=== PATIENT | female | born 1935 | race Caucasian/White ===

== ENCOUNTER → 2018-01-22 07:18 | Outpatient (CLI) | payer MEDICARE, SELFPAY | PROVIDERS: PCP Family Medicine; Visit Provider Surgery | DX: D12.6 Benign neoplasm of colon, unspecified (principal); K21.0 Gastro-esophageal reflux disease with esophagitis | CPT/HCPCS: 99213 ==

== ENCOUNTER 2018-02-12 08:01 | Outpatient (CLI) | payer MEDICARE, SELFPAY ==
--- NOTE | 2018-02-12 06:00 | DI.RAD_ITS ---
SYMPTOM/DIAGNOSIS: LUMBAR EPIDURAL STEROID INJECTION C-ARM FLUOROSCOPY: 02/12 Fluoroscopy Time: 19.9sec C-arm fluoroscopy was utilized by Dr. Hermosillo during reported lumbar epidural injection. Hard copy shows midline injection at what appears to be the L4-5 level consistent with an epidural injection.
[2018-02-12 08:32] VITALS: BP 137/80; PULSE 86; RESP 22; TEMP 36.6; O2SAT 93
[2018-02-12] MEDS: methylPREDNISolone ACETATE 40 MG/ML VIAL IJ (08:59)
[2018-02-12 09:00] VITALS: BP 132/73; PULSE 88; RESP 19; O2SAT 96
[2018-02-12] MEDS: Omnipaque 240 MG/ML 50 ML BTL IJ (09:00)
--- NOTE | 2018-03-04 15:07 | PDOC.PAIN_ITS ---
Lumbar radiculitis Chronic EPIDURAL STEROID WITH CATHETER INJECTION PROCEDURE NOTE COMMENTS: Back pain to left lower extremity to the ankle. L4-5 lateral recess stenosis.Patient states that her left lower extremity pain is improvedBut now she is having right sided pain. She does have some foraminal stenosis bilaterally at the L4-5 level VIRGINIE BROCK has been [facility] for lumbar epidural steroid injection. Patient was greeted by the nurse who verified patients name and . Patient was then taken to the fluoroscopy suite. Patient was interviewed and the medical record reviewed. There were no medical , pharmacologic, radiographic, or other structural contraindications to attempting fluoroscopically guided lumbar epidural steroid injection. Risks and expected side effects as well as potential benefits of the procedure were reviewed and voiced concerns addressed. The patient consent form was signed and witnessed. Standard time-out procedure was performed. Patient was placed in the prone position on the fluoroscopy table and automated blood pressure cuff and pulse oximeter applied. The skin entry point for entering/approaching the epidural space by a {L4-5} and marked. Following thorough chlorhexadine preparation of the skin and draping and 1% lidocaine infiltration of the skin entry point and subcutaneous tissues, a 18 gauge Touhy needle was placed under fluoroscopic guidance and with loss of resistance technique into the epidural space. Needle tip placement and depth were aided and confirmed by fluoroscopy. There was no paresthesia or return of blood or CSF through the needle.1 cc's of Omnipaque 240 was injected with clear epidural spread confirmed with fluoroscopy. 80mg depomedrol was injected. There was not any unusual discomfort expressed. Vital signs were stable throughout the procedure and were as recorded in nursing records. Follow up plans and appointments were discussed.Post procedure instruction was given as documented in nursing records and having met discharge criteria and was discharged from the [facility]. COMMENTS: Follow-up as needed. Would consider repeating if patient gets relief that is partial or not long lasting.I would consider doing bilateral transforaminal injections. The other options would be surgical evaluation and more complete evaluation in the pain clinic.
== END 2018-02-12 08:21 ==
PROVIDERS: PCP Family Medicine; Visit Provider Anesthesiology Pain Medicine
DX: M54.16 Radiculopathy, lumbar region (principal); M48.061 Spinal stenosis, lumbar region without neurogenic claudication
CPT/HCPCS: 62323; 72100; J1030; Q9967

== ENCOUNTER 2018-02-26 09:59 | Outpatient (CLI) | payer MEDICARE, SELFPAY ==
--- NOTE | 2018-02-26 09:41 | DI.RAD_ITS ---
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 L 2 - 3, L 3 - 4, L 4 - 5 and L 5 - S 1 disc narrowing is noted. A vacuum phenomenon is identified at these levels. Endplate sclerosis and hypertrophic spurring is most advanced at the L 3 - 4 level. The pedicle, spinous and transverse processes as visualized appear intact. Severe facet joint degenerative changes are evident most advanced at L 4 - 5 and L 5 - S 1. The sacrum and sacroiliac joints appear intact. Flexion and extension lateral images reveal reduced range of motion of the lumbar spine. 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 Please see the above discussion.
== END 2018-02-26 10:19 ==
PROVIDERS: PCP Family Medicine; Visit Provider Nurse Practitioner Family
DX: M43.16 Spondylolisthesis, lumbar region (principal); M51.37 Other intervertebral disc degeneration, lumbosacral region
CPT/HCPCS: 72110

== ENCOUNTER 2018-03-29 09:14 | Outpatient (CLI) | payer MEDICARE, SELFPAY ==
[2018-03-29 11:39] LABS: Hemoglobin A1C 6.5 % (4.5-6.2)
== END 2018-03-29 09:34 ==
PROVIDERS: PCP Family Medicine; Visit Provider Family Medicine
DX: E11.9 Type 2 diabetes mellitus without complications (principal)
CPT/HCPCS: 36415; 83036

== ENCOUNTER 2018-09-20 09:53 | Outpatient (CLI) | payer MEDICARE, SELFPAY ==
[2018-09-20 12:45] LABS: Hemoglobin A1C 6.3 % (4.5-6.2)
[2018-09-20 12:46] LABS: Anion Gap 9.8 mmol/L (3-11); BUN 18 mg/dL (7-18); CO2 28.2 mmol/L (21.0-32.0); CREATININE 0.67 mg/dL (0.55-1.02); Calcium 9.2 mg/dL (8.5-10.1); Chloride 102 mmol/L (98-107); Glucose 119 mg/dL (70-100); Potassium 3.7 mmol/L (3.5-5.1); Sodium 140 mmol/L (136-145)
== END 2018-09-20 10:13 ==
PROVIDERS: PCP Family Medicine; Visit Provider Family Medicine
DX: E11.9 Type 2 diabetes mellitus without complications (principal); I10 Essential (primary) hypertension
CPT/HCPCS: 36415; 80048; 83036

== ENCOUNTER 2018-09-24 00:16 | Outpatient (CLI) | payer MEDICARE, SELFPAY ==
--- NOTE | 2018-09-24 09:00 | DI.COMBO_ITS ---
SYMPTOM/DIAGNOSIS: LEFT BREAST PAIN, HX BIOPSY. SCREENING Z12.31 MAMMOGRAM, LEFT BREAST ULTRASOUND: Mammograms were interpreted according to the usual protocol including computer analysis with CAD system, tomosynthesis and C view imaging. The breast tissue is of moderate radiodensity. A spiculated area of nodularity is noted in the region of a previous biopsy in the lateral portion of the left breast. The nodular region today measures 8.2 x 7.2 and 8.4 mm. On the initial study of 03/28/17 this nodule measured 4 x 4.4 x 5.2 mm. Compression medial lateral and cranial caudad projections of the left breast were obtained today confirming the excrescence on the patient of 8.2 x k7.2 x 8.4 cm mass. SUMMARY: A nodular region in the left breast lies just posterior to a biopsy clip and could represent scarring. The possibility of a malignant lesion could not be entirely excluded and if there is any further clinical question then a repeat biopsy of this lesion is recommended. Category 4, breast density category B. MQSA ASSESSMENT OF FINDINGS: Suspicious. Biopsy should be considered. Category 4. Patient will receive a letter notifying them of these results. BI-RADS category B. There are scattered areas of fibroglandular density.
== END 2018-09-24 00:36 ==
PROVIDERS: PCP Family Medicine; Visit Provider Family Medicine
DX: Z12.31 Encounter for screening mammogram for malignant neoplasm of breast (principal); R92.8 Other abnormal and inconclusive findings on diagnostic imaging of breast; N64.4 Mastodynia; Z98.890 Other specified postprocedural states; N63.20 Unspecified lump in the left breast, unspecified quadrant
CPT/HCPCS: 76642; 77063; 77067

== ENCOUNTER 2018-12-03 01:09 | Outpatient (CLI) | payer MEDICARE, SELFPAY ==
--- NOTE | 2018-12-03 14:15 | DI.DEXA_ITS ---
SYMPTOMS/DIAGNOSIS: AROMATASE INHIBITOR USE, Z79.811, INVASIVE DUCTAL CARCINOMA OF BREAST DEXA SCAN: The LUIS image shows no evidence of compression fractures. The bone mineral density measurements of the lumbar spine correspond to a total T score of -0.1, in the normal range. There are degenerative disc changes at L 3 - 4 which may falsely elevate the bone mineral density measurements. The least dense vertebral body is L 1 with a T score of -0.7, in the normal range. The bone mineral density measurements of the left hip correspond to a total T score of -0.2 and a femoral neck T score of -0.1, in the kathy range. The bone mineral density measurements of the left forearm correspond to a total T score of -1.7 and a T score of the distal third of -1.5, in the osteopenic range. IMPRESSION: Osteopenia of the left forearm. Normal bone mineral density of the lumbar spine and left hip.
== END 2018-12-03 01:29 ==
PROVIDERS: PCP Family Medicine; Visit Provider Internal Medicine Medical Oncology
DX: Z79.811 Long term (current) use of aromatase inhibitors (principal); C50.912 Malignant neoplasm of unspecified site of left female breast; M85.88 Other specified disorders of bone density and structure, other site; M51.36 Other intervertebral disc degeneration, lumbar region
CPT/HCPCS: 77080

== ENCOUNTER 2018-12-05 01:06 | Outpatient (CLI) | payer MEDICARE, SELFPAY ==
--- NOTE | 2018-12-05 10:40 | MERGE_ITS ---
*[facility]* *[facility]* [address] [place] [address] Date of study: 12/05/2018 Transthoracic Echocardiography M-mode, complete 2D, complete spectral Doppler, and color Doppler *STUDY CONCLUSIONS* Impressions: Normal LV function. Summary: 1. Left ventricle: The cavity size was normal. Wall thickness was normal. Systolic function was hyperdynamic. The estimated ejection fraction was 65-70%. Wall motion was normal; there were no regional wall motion abnormalities. 2. Aortic valve: Mildly calcified annulus. Trileaflet; mildly thickened leaflets. Mild focal calcification involving the noncoronary cusp. There was mild regurgitation. 3. Mitral valve: There was mild regurgitation. 4. Right ventricle: The cavity size was normal. Wall thickness was normal. Systolic function was normal. 5. 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 6. Pulmonary arteries: Pulmonary systolic pressure was at the upper limits of normal. PA peak pressure: 37mm Hg (S). *PATIENT PRESENTATION* Height: 154.9cm (61in ) S/D Pressure: 127 / 72 Weight: 77.1kg (169.6lb ) BSA: 1.85m^2 Test start time: 10:45 AM. Test stop time: 12:30 PM. PERFORMING Unknown CONSULTING Julio Najera [facility] MOSAICIST RT Juanita (R)(CT), TOYIN ORDERING Jose Eduardo Nazario REFERRING Jose Eduardo Nazario *PROCEDURE DATA* Procedure information: This study was interpreted by [facility]. Pertinent images and digital data are archived for permanent storage and are available for subsequent review. No prior study was available for comparison. Study status: Routine. Transthoracic echocardiography. M-mode, complete 2D, complete spectral Doppler, and color Doppler. A Transthoracic Echocardiogram was performed. Scanning was performed from the parasternal, apical, subcostal, and suprasternal notch acoustic windows. Images were obtained using an [id number] cardiac ultrasound machine. Image quality was adequate. Study completion: The patient tolerated the procedure well. History: PMH: Adverse effect of drug therapy [id number]. 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 *CARDIAC ANATOMY* Left ventricle: The cavity size was normal. Wall thickness was normal. Systolic function was hyperdynamic. The estimated ejection fraction was 65-70%. Wall motion was normal; there were no regional wall motion abnormalities. Aortic valve: Mildly calcified annulus. Trileaflet; mildly thickened leaflets. Mild focal calcification involving the noncoronary cusp. Mobility was not restricted. Doppler: Transvalvular velocity was within the normal range. There was no stenosis. There was mild regurgitation. VTI ratio of LVOT to aortic valve: 0.79. Valve area (VTI): 2.5cm^2. Indexed valve area (VTI): 1.3cm^2/m^2. Peak velocity ratio of LVOT to aortic valve: 0.87. Valve area (Vmax): 2.7cm^2. Indexed valve area (Vmax): 1.5cm^2/m^2. Mean velocity ratio of LVOT to aortic valve: 0.65. Valve area (Vmean): 2cm^2. Indexed valve area (Vmean): 1.1cm^2/m^2. Mean gradient (S): 7.2mm Hg. Peak gradient (S): 12.7mm Hg. Aorta: Aortic root: The aortic root was normal in size. Ascending aorta: The ascending aorta was normal in size. Mitral valve: Structurally normal valve. Mobility was not restricted. Doppler: Transvalvular velocity was within the normal range. There was no evidence for stenosis. There was mild regurgitation. Left atrium: The atrium was normal in size. Atrial septum: The interatrial septum was hypermobile. 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 Right ventricle: The cavity size was normal. Wall thickness was normal. Systolic function was normal. Pulmonic valve: Doppler: Transvalvular velocity was within the normal range. There was no evidence for stenosis. There was no significant regurgitation. Tricuspid valve: Structurally normal valve. Doppler: Transvalvular velocity was within the normal range. There was no evidence for stenosis. There was mild regurgitation. Pulmonary artery: Pulmonary systolic pressure was at the upper limits of normal. Right atrium: The atrium was normal in size. Pericardium: A prominent pericardial fat pad was present. There was no pericardial effusion. Systemic veins: Inferior vena cava: Well visualized. The vessel was patent and normal in size. Baseline ECG: Normal sinus rhythm. Measurements Left ventricle Value Reference LV ID, ED, PLAX 4.5 cm 3.5 - 6.0 LV ID, ES, PLAX 2.3 cm 2.1 - 4.0 LV PW thickness, ED, PLAX 1.0 cm LV end-diastolic volume, 1-p A2C 46 ml LV ejection fraction, 1-p A2C 65 % LV end-diastolic volume, 1-p A4C 49 ml LV ejection fraction, 1-p A4C 73 % LV e', lateral 0.081 m/sec LV E/e', lateral 7 LV e', medial 0.042 m/sec LV E/e', medial 13 LV e', average 0.061 m/sec LV E/e', average 9 Ventricular septum Value Reference IVS thickness, ED, PLAX 0.9 cm LVOT Value Reference LVOT ID, A-P 2.0 cm LVOT area 3.1 cm^2 LVOT peak velocity, S 1.54 m/sec LVOT mean velocity, S 0.83 m/sec LVOT VTI, S 23.7 cm LVOT peak gradient, S 9.5 mm Hg LVOT mean gradient, S 3.5 mm Hg Stroke volume (SV), LVOT DP 74 ml Stroke index (SV/bsa), LVOT DP 40 ml/m^2 Aortic valve Value Reference Aortic valve peak velocity, S 1.8 m/sec Aortic valve mean velocity, S 1.3 m/sec Aortic valve VTI, S 30.0 cm Aortic mean gradient, S 7.2 mm Hg Aortic peak gradient, S 12.7 mm Hg VTI ratio, LVOT/AV 0.79 Aortic valve area, VTI 2.5 cm^2 Velocity ratio, peak, LVOT/AV 0.87 Aortic valve area, peak velocity 2.7 cm^2 Velocity ratio, mean, LVOT/AV 0.65 Aortic valve area, mean velocity 2 cm^2 Aortic valve area/bsa, mean velocity 1.1 cm^2/m^2 Aorta Value Reference Aortic root ID, ED 2.5 cm Ascending aorta ID, A-P, S 3.1 cm Left atrium Value Reference LA ID, A-P, ES 3.7 cm LA ID/bsa, A-P 2.0 cm/m^2 <=2.2 LA volume/bsa, ES, 1-p A4C 27 ml/m^2 LA volume, ES, 2-p 47 ml LA volume/bsa, ES, 2-p 25 ml/m^2 LA/aortic root ratio 1.47 Mitral valve Value Reference Mitral E-wave peak velocity 0.53 m/sec Mitral A-wave peak velocity 1.06 m/sec Mitral E/A ratio, peak 0.5 Pulmonary veins Value Reference Pulmonary vein peak velocity, S 0.65 m/sec Pulmonary vein peak velocity, D 0.3 m/sec Pulmonary vein velocity ratio, peak, 2.16 S/D Pulmonary vein A-wave reversal peak 1.02 m/sec velocity Pulmonary arteries Value Reference PA pressure, S, DP (H) 37 mm Hg <=30 Tricuspid valve Value Reference Tricuspid regurg peak velocity 2.6 m/sec Tricuspid peak RV-RA gradient 26.9 mm Hg Right atrium Value Reference RA area, ES, A4C 10.6 cm^2 8.3 - 19.5 Systemic veins Value Reference Estimated CVP 10 mm Hg Right ventricle Value Reference RV pressure, S, DP (H) 37 mm Hg <=30 Legend: (L) and (H) ivett values outside specified reference range. I have personally reviewed the images and have reviewed and edited the reported findings. Electronically signed by Jean Pierre Forbes 12/05/2018 17:46
== END 2018-12-05 01:26 ==
PROVIDERS: PCP Family Medicine; Visit Provider Student in an Organized Health Care Education/Training Program
DX: C50.912 Malignant neoplasm of unspecified site of left female breast (principal); T50.905A Adverse effect of unspecified drugs, medicaments and biological substances, initial encounter; I08.0 Rheumatic disorders of both mitral and aortic valves; I25.3 Aneurysm of heart
CPT/HCPCS: 93306

== ENCOUNTER 2018-12-06 01:23 | Outpatient (CLI) | payer MEDICARE, SELFPAY ==
--- NOTE | 2018-12-06 10:00 | DI.NM_ITS ---
SYMPTOMS/DIAGNOSIS: INVASIVE DUCTAL CARCINOMA OF LEFT BREAST, METASTATIC BREAST CA, C50.912 WHOLE BODY BONE SCAN: Whole body bone scan was performed with intravenous infusion of 26.0 mCi of technetium 99 labelled methylene diphosphonate. Additional SPECT imaging of the lumbar region was performed. There are areas of increased uptake associated with L2-3 and L3-4 vertebral endplates and the findings are consistent with endplate hypertrophy and sclerosis noted on today's CT. No additional areas of suspicious increased uptake are identified. Minimal nonspecific increased uptake may be present in a couple of left ribs posteriorly in a pattern suggesting remote fracture. There is bilateral appropriate renal uptake. Mildly increased uptake noted in left knee consistent with degenerative change. CONCLUSION: No evidence of bony metastatic disease.
[2018-12-06] MEDS: Omnipaque 350 MG/ML 100 ML BTL IJ (11:18)
[2018-12-06] MEDS: Omnipaque 350 MG/ML 50 ML BTL IJ (11:19)
[2018-12-06] MEDS: Breeza Beverage 473 ML BTL PO ×2 (11:20)
--- NOTE | 2018-12-06 11:20 | DI.CT_ITS ---
SYMPTOM/DIAGNOSIS: INVASIVE DUCTAL CARCINOMA OF BREAST LEFT C50.912 STAGING OF BREAST CANCER CHEST, ABDOMEN AND PELVIS CT: 12/06 CT examination of the chest, abdomen and pelvis was performed with a bolus infusion of 100 cc Omnipaque 350 and ingestion of dilute barium. The patient reportedly has a history of recently diagnosed breast carcinoma. There is an apparent fluid collection seen in the left breast which is partially visualized on the scanning field. Axillary vascular clips are noted in the left axilla as well. No axillary, supraclavicular or mediastinal adenopathy seen. There are marked pulmonary predominantly central lobular emphysematous changes. No pulmonary nodule or consolidation. No abnormality of the tracheobronchial tree. No evidence of pulmonary embolic disease or other major vascular abnormality of the chest. No pleural effusion or pleural based mass. No focal bony lesions seen involving the chest, abdomen or pelvis. There is an apparent central 13 mm hepatic cyst. Otherwise, liver and spleen are unremarkable in appearance. Pancreas appears normal. Adrenals and kidneys are unremarkable. No urinary tract calcification or obstruction. Abdominal aorta is of normal diameter and major abdominal branches of the aorta appear intact. There is mild prominence of para aortic lymph nodes the largest measuring up to about 13 mm in diameter on transaxial imaging. No bulky adenopathy identified in the abdomen or pelvis. Appendix appears normal. There is colonic diverticulosis without evidence of diverticulitis. Note is made of apparent wall thickening of the gastric antrum, duodenum and proximal jejunum raising the possibility of enteritis, please correlate clinically. CONCLUSION: No evidence of metastatic disease of the chest, abdomen or pelvis. Additional findings include pulmonary emphysema and nonspecific wall thickening of gastric antrum, duodenum and jejunum which may be associated with enteritis. Please correlate clinically.
== END 2018-12-06 01:43 ==
PROVIDERS: PCP Family Medicine; Visit Provider Internal Medicine Medical Oncology
DX: C50.912 Malignant neoplasm of unspecified site of left female breast (principal); Z12.89 Encounter for screening for malignant neoplasm of other sites; K31.89 Other diseases of stomach and duodenum; J43.9 Emphysema, unspecified; M17.12 Unilateral primary osteoarthritis, left knee
CPT/HCPCS: 74177; 78306; 71260; J3490; Q9967

== ENCOUNTER 2018-12-27 09:28 | Outpatient (CLI) | payer MEDICARE, SELFPAY ==
[2018-12-27 10:07] LABS: Absolute Basophil Count 0.06 k/cumm (0.0-0.2); Absolute Eosinophil Count 0.23 k/cumm (0.0-0.7); Absolute Lymphocyte Count 1.72 k/cumm (1.2-3.4); Basophils % 0.9; Eosinophils % 3.5; HCT 42.5 % (36.0-46.0); HGB 13.9 g/dL (12.0-15.5); Mean Corp. HGB Concentration 32.7 g/dL (32.0-36.0); Mean Corpuscular Volume 88.7 fL (80-95); Mean Platelet Volume 11.8 fL (8.0-11.0); Monocytes % 9.1; Neutrophils % 60.5; Platelet Count 217 x1000/uL (130-400); RBC 4.79 m/cumm (4.00-5.20); RBC Distribution Width 14.7 % (11.7-14.6); White Blood Cell Count 6.61 k/cumm (4.4-10.8)
[2018-12-27 10:25] LABS: ALT 80 U/L (12-78); AST 82 U/L (15-37); Albumin 3.3 g/dL (3.4-5.0); Alkaline Phosphatase 242 U/L (46-116); Anion Gap 11.7 mmol/L (3-11); BUN 16 mg/dL (7-18); CO2 25.3 mmol/L (21.0-32.0); CREATININE 0.71 mg/dL (0.55-1.02); Chloride 103 mmol/L (98-107); Glucose 105 mg/dL (70-100); Potassium 3.6 mmol/L (3.5-5.1); Sodium 140 mmol/L (136-145); Total Protein 7.6 g/dL (6.4-8.2)
[2018-12-31 23:45] LABS: 25-Hydroxy D Total 64 ng/mL; 25-Hydroxy D2 <4.0 ng/mL; 25-Hydroxy D3 64 ng/mL
== END 2018-12-27 09:48 ==
PROVIDERS: PCP Family Medicine; Visit Provider Internal Medicine Hematology & Oncology
DX: C50.911 Malignant neoplasm of unspecified site of right female breast (principal); Z17.0 Estrogen receptor positive status [ER+]; M85.832 Other specified disorders of bone density and structure, left forearm
CPT/HCPCS: 36415; 80053; 82306; 85025

== ENCOUNTER 2019-01-17 08:27 | Outpatient (CLI) | payer MEDICARE, SELFPAY ==
[2019-01-17 08:56] LABS: Absolute Basophil Count 0.03 k/cumm (0.0-0.2); Absolute Eosinophil Count 0.19 k/cumm (0.0-0.7); Absolute Lymphocyte Count 1.02 k/cumm (1.2-3.4); Absolute Monocyte Count 0.65 k/cumm (0.11-0.7); Absolute Neutrophil Count 3.37 k/cumm (1.2-6.7); Basophils % 0.6; Eosinophils % 3.6; HCT 40.3 % (36.0-46.0); HGB 13.3 g/dL (12.0-15.5); Lymphocytes % 19.4; Mean Corpuscular Hemoglobin 29.5 pg (27.0-33.0); Mean Corpuscular Volume 89.4 fL (80-95); Mean Platelet Volume 11.8 fL (8.0-11.0); Monocytes % 12.4; Platelet Count 161 x1000/uL (130-400); RBC 4.51 m/cumm (4.00-5.20); RBC Distribution Width 14.8 % (11.7-14.6); White Blood Cell Count 5.26 k/cumm (4.4-10.8)
[2019-01-17 09:11] LABS: ALT 76 U/L (12-78); AST 83 U/L (15-37); Alkaline Phosphatase 243 U/L (46-116); Anion Gap 8.6 mmol/L (3-11); BUN 16 mg/dL (7-18); Bilirubin, Total 0.6 mg/dL (0.2-1.0); CO2 26.4 mmol/L (21.0-32.0); CREATININE 0.74 mg/dL (0.55-1.02); Calcium 9.4 mg/dL (8.5-10.1); Chloride 104 mmol/L (98-107); Glucose 167 mg/dL (70-100); Potassium 3.7 mmol/L (3.5-5.1); Sodium 139 mmol/L (136-145); Total Protein 7.3 g/dL (6.4-8.2)
== END 2019-01-17 08:47 ==
PROVIDERS: PCP Family Medicine; Visit Provider Internal Medicine Hematology & Oncology
DX: C50.911 Malignant neoplasm of unspecified site of right female breast (principal); Z17.0 Estrogen receptor positive status [ER+]
CPT/HCPCS: 36415; 80053; 85025

== ENCOUNTER 2019-02-07 10:13 | Outpatient (CLI) | payer MEDICARE, SELFPAY ==
[2019-02-07 10:48] LABS: Abs Immature Grans 0.01 k/cumm (0.0-0.09); Absolute Basophil Count 0.05 k/cumm (0.0-0.2); Absolute Eosinophil Count 0.16 k/cumm (0.0-0.7); Absolute Neutrophil Count 3.49 k/cumm (1.2-6.7); Basophils % 0.9; Eosinophils % 2.8; HCT 39.9 % (36.0-46.0); HGB 13.2 g/dL (12.0-15.5); Immature Grans % 0.2; Lymphocytes % 26.3; Mean Corp. HGB Concentration 33.1 g/dL (32.0-36.0); Mean Corpuscular Hemoglobin 29.7 pg (27.0-33.0); Mean Corpuscular Volume 89.7 fL (80-95); Mean Platelet Volume 11.6 fL (8.0-11.0); Monocytes % 8.8; Platelet Count 182 x1000/uL (130-400); RBC 4.45 m/cumm (4.00-5.20); RBC Distribution Width 14.9 % (11.7-14.6); White Blood Cell Count 5.71 k/cumm (4.4-10.8)
[2019-02-07 11:03] LABS: ALT 77 U/L (14-59); AST 91 U/L (15-37); Albumin 3.1 g/dL (3.4-5.0); Alkaline Phosphatase 212 U/L (46-116); BUN 17 mg/dL (7-18); Bilirubin, Total 0.8 mg/dL (0.2-1.0); CREATININE 0.85 mg/dL (0.55-1.02); Calcium 9.2 mg/dL (8.5-10.1); Chloride 103 mmol/L (98-107); Glucose 208 mg/dL (70-100); Potassium 3.4 mmol/L (3.5-5.1); Sodium 140 mmol/L (136-145); Total Protein 7.3 g/dL (6.4-8.2)
== END 2019-02-07 10:33 ==
PROVIDERS: PCP Family Medicine; Visit Provider Internal Medicine Hematology & Oncology
DX: C50.911 Malignant neoplasm of unspecified site of right female breast (principal); Z17.0 Estrogen receptor positive status [ER+]
CPT/HCPCS: 36415; 80053; 85025

== ENCOUNTER 2019-02-28 10:34 | Outpatient (CLI) | payer MEDICARE, SELFPAY ==
[2019-02-28 10:51] LABS: Abs Immature Grans 0.01 k/cumm (0.0-0.09); Absolute Basophil Count 0.04 k/cumm (0.0-0.2); Absolute Eosinophil Count 0.19 k/cumm (0.0-0.7); Absolute Monocyte Count 0.66 k/cumm (0.11-0.7); Absolute Neutrophil Count 3.42 k/cumm (1.2-6.7); Basophils % 0.7; Eosinophils % 3.1; HCT 38.7 % (36.0-46.0); HGB 12.7 g/dL (12.0-15.5); Immature Grans % 0.2; Lymphocytes % 29.4; Mean Corp. HGB Concentration 32.8 g/dL (32.0-36.0); Mean Corpuscular Hemoglobin 29.4 pg (27.0-33.0); Mean Corpuscular Volume 89.6 fL (80-95); Monocytes % 10.8; Neutrophils % 55.8; Platelet Count 182 x1000/uL (130-400); RBC 4.32 m/cumm (4.00-5.20); RBC Distribution Width 14.9 % (11.7-14.6); White Blood Cell Count 6.12 k/cumm (4.4-10.8)
[2019-02-28 11:13] LABS: ALT 73 U/L (14-59); AST 85 U/L (15-37); Albumin 3.1 g/dL (3.4-5.0); Alkaline Phosphatase 223 U/L (46-116); Anion Gap 10.3 mmol/L (3-11); BUN 17 mg/dL (7-18); Bilirubin, Total 0.9 mg/dL (0.2-1.0); CO2 24.7 mmol/L (21.0-32.0); CREATININE 0.69 mg/dL (0.55-1.02); Chloride 106 mmol/L (98-107); Glucose 109 mg/dL (70-100); Potassium 3.9 mmol/L (3.5-5.1); Sodium 141 mmol/L (136-145); Total Protein 7.2 g/dL (6.4-8.2)
== END 2019-02-28 10:54 ==
PROVIDERS: PCP Family Medicine; Visit Provider Internal Medicine Hematology & Oncology
DX: C50.912 Malignant neoplasm of unspecified site of left female breast (principal)
CPT/HCPCS: 36415; 80053; 85025

== ENCOUNTER 2019-03-17 01:04 | Outpatient (CLI) | payer MEDICARE, SELFPAY ==
--- NOTE | 2019-03-17 14:20 | DI.US_ITS ---
APPROVED REPORT EXAM: Comprehensive 2D, Doppler, and color-flow Echocardiogram Patient Location: Out-Patient Chamber Magistrate: Cindy Kelly [facility] ([place]) Indications: adverse effect of drug therapy [id number], breast CA left c50.912 Left Ventricle The left ventricle is grossly normal size. The left ventricular systolic function is normal. The left ventricular ejection fraction is within the normal range. Mild concentric left ventricular hypertrop hy. There is normal LV segmental wall motion. Diastolic function is indeterminate LVEF is 60-65%. Right Ventricle The right ventricle is normal size. The right ventricular systolic function is normal. Atria The left atrium size is normal. The right atrium size is normal. The atrial septum is aneurysmal. Aortic Valve The Aortic valve is sclerotic. There is no aortic valvular stenosis. Mild aortic regurgitation. Mitral Valve There is mitral annular calcification. No evidence of mitral valve stenosis. Mild mitral regurgitatio n. Tricuspid Valve The tricuspid valve is normal in structure. Trace to mild tricuspid regurgitation. RVSP is within nor mal limits Pulmonic Valve The pulmonary valve is normal in structure. Great Vessels The aortic root is normal in size. The IVC is normal in size and collapses >50% with inspiration. Pericardium There is no pericardial effusion. 2D Dimensions IVSd 1.3 cm F: 0.6-1.0 LA Volume Index A4C 37.0 mL/m2 PWd 1.2 cm F: 0.6 - 1.0 LA Area A4C 20.0 cm2 LVDd 3.7 cm F: 3.9 - 5.3 LVDs 2.1 cm F: 2.2 - 3.5 Aortic Root 3.0 cm F: 2.7 - 3.3 RA Area A4C 12.0 cm2 LVOT 2.0 cm (M/F) 1.5-2.5 Ascending Aorta 3.4 cm F: 2.3 - 3.1 LVEF (Jerez's) 61.0 % F: 54 - 74 FS 43.4 % LV Diastology E/A Ratio 0.5 MED E' 0.1 (<0.07 m/s) LV E/e MED 7.0 (>14) LAT E' 0.1 (<0.1 m/s) LV E/e LAT 4.7 (>14) Aortic Valve LVOT Peak Rambo. 1.1 m/s LVOT Peak Gr. 5.2 mmHg LVOT Mean Gr. 2.3 mmHg LVOT VTI 0.2 m AO VTI 0.3 (0.18-0.25 m) RAY (VTI) 1.6 (2.5-4.5 cm2) RAY (VTI) Index 0.9 cm/m2 Mitral Valve MV A Velocity 0.9 (0.4-1.3 m/s) E/A Ratio 0.5 MV Decel. Time 263.0 (160-240 msec) MV PHT 76.2 msec MVA PHT 2.9 cm2 Tricuspid Valve TR P. Velocity 2.3 m/s TR P. Gradient 21.0 mmHg Conclusion Left Ventricle : The left ventricle is grossly normal size. Mild concentric left ventricular hypertro phy. Diastolic function is indeterminate The left ventricular systolic function is normal. The left v entricular ejection fraction is within the normal range. There is normal LV segmental wall motion. Right Ventricle : The right ventricle is normal size. The right ventricular systolic function is norm al. Atria : The left atrium is mildly enlarged. The right atrium size is normal. The atrial septum is ane urysmal. Aortic Valve : The Aortic valve is sclerotic. Mild aortic regurgitation. There is no aortic valvular stenosis. Mitral Valve : There is mitral annular calcification. Mild mitral regurgitation. Tricuspid Valve : The tricuspid valve is normal in structure. Trace to mild tricuspid regurgitation. RVSP is within normal limits Mitral Valve : No evidence of mitral valve stenosis. Pulmonic Valve : The pulmonary valve is normal in structure. Great Vessels : The aortic root is normal in size. The IVC is normal in size and collapses >50% with inspiration. Pericardium : There is no pericardial effusion. Compared to prior echo dated 12/05/2018, there is no significant change.
== END 2019-03-17 01:24 ==
PROVIDERS: PCP Family Medicine; Visit Provider Internal Medicine Hematology & Oncology
DX: T50.905A Adverse effect of unspecified drugs, medicaments and biological substances, initial encounter (principal); C50.912 Malignant neoplasm of unspecified site of left female breast; I34.0 Nonrheumatic mitral (valve) insufficiency; I35.1 Nonrheumatic aortic (valve) insufficiency; I10 Essential (primary) hypertension
CPT/HCPCS: 93306

== ENCOUNTER 2019-03-21 10:09 | Outpatient (CLI) | payer MEDICARE, SELFPAY ==
[2019-03-21 10:25] LABS: Abs Immature Grans 0.02 k/cumm (0.0-0.09); Absolute Basophil Count 0.08 k/cumm (0.0-0.2); Absolute Eosinophil Count 0.36 k/cumm (0.0-0.7); Absolute Monocyte Count 0.77 k/cumm (0.11-0.7); Eosinophils % 4.5; HCT 42.5 % (36.0-46.0); HGB 13.8 g/dL (12.0-15.5); Immature Grans % 0.2; Lymphocytes % 24.9; Mean Corp. HGB Concentration 32.5 g/dL (32.0-36.0); Mean Corpuscular Hemoglobin 28.9 pg (27.0-33.0); Mean Corpuscular Volume 89.1 fL (80-95); Mean Platelet Volume 10.8 fL (8.0-11.0); Monocytes % 9.6; Neutrophils % 59.8; Platelet Count 275 x1000/uL (130-400); RBC 4.77 m/cumm (4.00-5.20); RBC Distribution Width 14.9 % (11.7-14.6); White Blood Cell Count 8.03 k/cumm (4.4-10.8)
[2019-03-21 10:36] LABS: ALT 71 U/L (14-59); AST 86 U/L (15-37); Albumin 2.9 g/dL (3.4-5.0); Alkaline Phosphatase 264 U/L (46-116); BUN 16 mg/dL (7-18); Bilirubin, Total 0.8 mg/dL (0.2-1.0); CREATININE 0.88 mg/dL (0.55-1.02); Calcium 9.6 mg/dL (8.5-10.1); Chloride 101 mmol/L (98-107); Glucose 170 mg/dL (70-100); Potassium 3.6 mmol/L (3.5-5.1); Sodium 138 mmol/L (136-145); Total Protein 7.5 g/dL (6.4-8.2)
== END 2019-03-21 10:29 ==
PROVIDERS: PCP Family Medicine; Visit Provider Internal Medicine Hematology & Oncology
DX: C50.912 Malignant neoplasm of unspecified site of left female breast (principal)
CPT/HCPCS: 36415; 80053; 85025

== ENCOUNTER 2019-05-02 09:05 | Outpatient (CLI) | payer MEDICARE, SELFPAY ==
[2019-05-02 09:28] LABS: Abs Immature Grans 0.01 k/cumm (0.0-0.09); Absolute Basophil Count 0.07 k/cumm (0.0-0.2); Absolute Eosinophil Count 0.26 k/cumm (0.0-0.7); Absolute Lymphocyte Count 1.59 k/cumm (1.2-3.4); Absolute Monocyte Count 0.76 k/cumm (0.11-0.7); Absolute Neutrophil Count 4.13 k/cumm (1.2-6.7); Eosinophils % 3.8; HCT 39.3 % (36.0-46.0); HGB 12.9 g/dL (12.0-15.5); Immature Grans % 0.1; Lymphocytes % 23.3; Mean Corp. HGB Concentration 32.8 g/dL (32.0-36.0); Mean Corpuscular Hemoglobin 29.3 pg (27.0-33.0); Mean Corpuscular Volume 89.1 fL (80-95); Mean Platelet Volume 11.2 fL (8.0-11.0); Monocytes % 11.1; Neutrophils % 60.7; Platelet Count 214 x1000/uL (130-400); RBC 4.41 m/cumm (4.00-5.20); RBC Distribution Width 15.5 % (11.7-14.6); White Blood Cell Count 6.82 k/cumm (4.4-10.8)
[2019-05-02 09:54] LABS: ALT 73 U/L (14-59); AST 90 U/L (15-37); Albumin 3.1 g/dL (3.4-5.0); Alkaline Phosphatase 227 U/L (46-116); Anion Gap 8.6 mmol/L (3-11); BUN 13 mg/dL (7-18); CO2 27.4 mmol/L (21.0-32.0); CREATININE 0.67 mg/dL (0.55-1.02); Calcium 9.3 mg/dL (8.5-10.1); Chloride 104 mmol/L (98-107); Glucose 105 mg/dL (74-106); Potassium 3.4 mmol/L (3.5-5.1); Sodium 140 mmol/L (136-145); Total Protein 7.4 g/dL (6.4-8.2)
== END 2019-05-02 09:25 ==
PROVIDERS: PCP Family Medicine; Visit Provider Internal Medicine Hematology & Oncology
DX: C50.912 Malignant neoplasm of unspecified site of left female breast (principal)
CPT/HCPCS: 36415; 80053; 85025

== ENCOUNTER 2019-06-13 08:47 | Outpatient (CLI) | payer MEDICARE, SELFPAY ==
[2019-06-13 09:20] LABS: Abs Immature Grans 0.01 k/cumm (0.0-0.09); Absolute Basophil Count 0.05 k/cumm (0.0-0.2); Absolute Eosinophil Count 0.35 k/cumm (0.0-0.7); Absolute Lymphocyte Count 1.59 k/cumm (1.2-3.4); Absolute Monocyte Count 0.79 k/cumm (0.11-0.7); Absolute Neutrophil Count 4.26 k/cumm (1.2-6.7); Basophils % 0.7; HCT 38.5 % (36.0-46.0); HGB 12.8 g/dL (12.0-15.5); Immature Grans % 0.1 %; Lymphocytes % 22.6; Mean Corp. HGB Concentration 33.2 g/dL (32.0-36.0); Mean Corpuscular Hemoglobin 29.6 pg (27.0-33.0); Mean Corpuscular Volume 88.9 fL (80-95); Mean Platelet Volume 11.2 fL (8.0-11.0); Monocytes % 11.2; Neutrophils % 60.4; Platelet Count 226 x1000/uL (130-400); RBC 4.33 m/cumm (4.00-5.20); RBC Distribution Width 15.3 % (11.7-14.6); White Blood Cell Count 7.05 k/cumm (4.4-10.8)
[2019-06-13 09:51] LABS: ALT 87 U/L (14-59); AST 109 U/L (15-37); Alkaline Phosphatase 231 U/L (46-116); Anion Gap 9.7 mmol/L (3-11); BUN 18 mg/dL (7-18); Bilirubin, Total 0.8 mg/dL (0.2-1.0); CO2 28.3 mmol/L (21.0-32.0); CREATININE 0.69 mg/dL (0.55-1.02); Calcium 9.1 mg/dL (8.5-10.1); Chloride 103 mmol/L (98-107); Glucose 142 mg/dL (74-106); Potassium 3.4 mmol/L (3.5-5.1); Sodium 141 mmol/L (136-145); Total Protein 6.9 g/dL (6.4-8.2)
== END 2019-06-13 09:07 ==
PROVIDERS: PCP Family Medicine; Visit Provider Internal Medicine Hematology & Oncology
DX: C50.911 Malignant neoplasm of unspecified site of right female breast (principal); Z17.0 Estrogen receptor positive status [ER+]
CPT/HCPCS: 36415; 80053; 85025

== ENCOUNTER 2019-06-19 02:24 | Outpatient (CLI) | payer MEDICARE, SELFPAY ==
--- NOTE | 2019-06-19 10:25 | DI.US_ITS ---
APPROVED REPORT EXAM: Comprehensive 2D, Doppler, and color-flow Echocardiogram Patient Location: Out-Patient Armature Bander: Cindy Kelly [facility] ([facility]) Rhythm: NSR Indications: MONITORING OF CARDIAC FUNCTION, ON HERCEPTIN, HEART MURMUR, R01.1, LT BREAST CA Conclusion Left Ventricle : The left ventricle is normal size. There is normal left ventricular wall thickness. The posterior wall thickness is mildly increased. The septum is normal. Left ventricular systolic fu nction is normal. There is normal LV segmental wall motion. Function is indeterminate but there is ev idence of impaired relaxation. LVEF is estimated to be 60-65%. Right Ventricle : The right ventricle is normal size. Right ventricular systolic function is mildly r educed. Atria : The left atrium size is top normal. The right atrium size is normal. Aortic Valve : Aortic valve is trileaflet. The Aortic valve is sclerotic. There is no hemodynamically significant aortic valvular stenosis. Mild aortic regurgitation. Mitral Valve : There is mitral annular calcification. Mitral valve leaflets are mildly thickened. Tra ce mitral regurgitation. No evidence of mitral valve stenosis. Tricuspid Valve : The tricuspid valve is normal in structure. Trace tricuspid regurgitation. Great Vessels : IVC appears smaller in size and collapses >50% with inspiration. Estimated RVSP is 2 2-25 mmHg. Compared to echocardiogram dated 03/17/2019: There is no significant change. Wall motion Left Ventricle The left ventricle is normal size. Left ventricular systolic function is normal. Global longitudinal strain was not done on this study. There is normal left ventricular wall thickness. The posterior wal l thickness is mildly increased. The septum is normal. There is normal LV segmental wall motion. Func tion is indeterminate but there is evidence of impaired relaxation. LVEF is estimated to be 60-65%. Right Ventricle The right ventricle is normal size. Right ventricular systolic function is mildly reduced. Atria The left atrium size is top normal. The right atrium size is normal. Aortic Valve Aortic valve is trileaflet. The Aortic valve is sclerotic. There is no hemodynamically significant ao rtic valvular stenosis. Mild aortic regurgitation. Mitral Valve There is mitral annular calcification. Mitral valve leaflets are mildly thickened. No evidence of sylvia ral valve stenosis. Trace mitral regurgitation. Tricuspid Valve The tricuspid valve is normal in structure. Trace tricuspid regurgitation. Pulmonic Valve Pulmonic valve is not well visualized. Great Vessels The aortic root is normal in size. The ascending aorta size is dilated (3.32). IVC appears smaller in size and collapses >50% with inspiration. Estimated RVSP is 22-25 mmHg. Pericardium There is no pericardial effusion. 2D Dimensions IVSd 1.00 cm F: 0.6-1.0 LV EDV A2C 83.10 mL PWd 1.00 cm F: 0.6 - 1.0 LV EDV A4C 61.30 mL LVDd 4.40 cm F: 3.8 - 5.2 LA Volume Index A2C 30.73 mL/m2 LVDs 2.95 cm F: 2.2 - 3.5 LA Volume Index A4C 37.46 mL/m2 Aortic Root 2.85 cm F: 2.7 - 3.3 LA Volume Index Biplane 34.47 mL/m2 RA Area A4C 15.34 cm2 LA Area A4C 19.69 cm2 LVOT 1.90 cm (M/F) 1.5-2.5 LA Area A2C 17.55 cm2 Ascending Aorta 3.32 cm F: 2.3 - 3.1 EF AP4 61.50 % LVEF (Teich) 61.80 % EF AP2 66.19 % LVEF (Jerez's) 63.72 % F: 54 - 74 EF BP 63.72 % LV Volume 55.74 mL F: 46 - 106 LV Volume Index 31.85 mL/m2 F: 29 - 61 FS 33.05 % LV Diastology E/A Ratio 0.5 MED E' 0.04 (>0.07 m/s) LV E/e MED 14.40 (<14) LAT E' 0.06 (>0.1 m/s) LV E/e LAT 8.45 (<14) Aortic Valve LVOT Area 2.95 cm2 LVOT Vmax 1.41 m/s LVOT Mean Rambo. 1.01 m/s LVOT Peak Gr. 8.0 mmHg LVOT Mean Gr. 4.5 mmHg AoV Area/ BSA (Vmax) 1.06 cm2/m2 LVOT VTI 0.233 m AoV Vmax 2.25 (0.5-1.3 m/s) RAY Mean Rambo. Index 1.13 cm2/m2 AoV Mean Rambo. 1.50 m/s AoV Peak Grad 20.2 mmHg AI PHT 320.47 msec AoV Mean Grad 9.8 (<5 mmHg) AoV VTI 0.385 (0.18-0.25 m) AV Regurg Decel. 1105.08 msec AoV Area VTI 1.98 (2.5-4.5 cm2) AoV Area/ BSA (VTI) 1.13 cm/m2 Mitral Valve MV E Max Rambo. 0.54 (0.4-1.3 m/s) MV A Velocity 1.05 (0.4-1.3 m/s) E/A Ratio 0.50 MV Decel. Time 208.10 (160-240 msec) MV PHT 60.35 msec MVA PHT 3.60 cm2 Pulmonary Valve PV Peak Velocity 1.09 (0.5-1.5 m/s) RVOT Peak Gr. 2.22 mmHg RVOT Peak Rambo. 0.75 m/s RVOT Mean Gr. 1.00 mmHg RVOT VTI 0.10 m Tricuspid Valve TR P. Velocity 2.40 m/s TV Regurg Vmax 2.40 m/s TR P. Gradient 22.95 mmHg
== END 2019-06-19 02:44 ==
PROVIDERS: PCP Family Medicine; Visit Provider Internal Medicine Hematology & Oncology
DX: R01.1 Cardiac murmur, unspecified (principal); C50.912 Malignant neoplasm of unspecified site of left female breast; Z79.899 Other long term (current) drug therapy; I35.8 Other nonrheumatic aortic valve disorders; I50.1 Left ventricular failure, unspecified
CPT/HCPCS: 93306

== ENCOUNTER 2019-07-04 09:13 | Outpatient (CLI) | payer MEDICARE, SELFPAY ==
[2019-07-04 09:36] LABS: Absolute Basophil Count 0.05 k/cumm (0.0-0.2); Absolute Lymphocyte Count 1.63 k/cumm (1.2-3.4); Absolute Monocyte Count 0.67 k/cumm (0.11-0.7); Absolute Neutrophil Count 4.23 k/cumm (1.2-6.7); Basophils % 0.7; Eosinophils % 2.9; HCT 37.4 % (36.0-46.0); HGB 12.2 g/dL (12.0-15.5); Mean Corp. HGB Concentration 32.6 g/dL (32.0-36.0); Mean Corpuscular Hemoglobin 29.4 pg (27.0-33.0); Mean Corpuscular Volume 90.1 fL (80-95); Mean Platelet Volume 11.7 fL (8.0-11.0); Monocytes % 9.9; Neutrophils % 62.5; Platelet Count 211 x1000/uL (130-400); RBC 4.15 m/cumm (4.00-5.20); RBC Distribution Width 14.6 % (11.7-14.6); White Blood Cell Count 6.78 k/cumm (4.4-10.8)
[2019-07-04 09:55] LABS: ALT 64 U/L (14-59); AST 75 U/L (15-37); Alkaline Phosphatase 156 U/L (46-116); Anion Gap 11.1 mmol/L (3-11); BUN 13 mg/dL (7-18); Bilirubin, Total 0.7 mg/dL (0.2-1.0); CO2 24.9 mmol/L (21.0-32.0); CREATININE 0.58 mg/dL (0.55-1.02); Calcium 9.3 mg/dL (8.5-10.1); Chloride 104 mmol/L (98-107); Glucose 105 mg/dL (74-106); Potassium 3.6 mmol/L (3.5-5.1); Sodium 140 mmol/L (136-145)
== END 2019-07-04 09:33 ==
PROVIDERS: PCP Family Medicine; Visit Provider Internal Medicine Hematology & Oncology
DX: C50.912 Malignant neoplasm of unspecified site of left female breast (principal)
CPT/HCPCS: 36415; 80053; 85025

== ENCOUNTER 2019-07-25 10:15 | Outpatient (CLI) | payer MEDICARE, SELFPAY ==
[2019-07-25 10:57] LABS: Absolute Basophil Count 0.04 k/cumm (0.0-0.2); Absolute Eosinophil Count 0.22 k/cumm (0.0-0.7); Absolute Lymphocyte Count 1.59 k/cumm (1.2-3.4); Absolute Monocyte Count 0.67 k/cumm (0.11-0.7); Absolute Neutrophil Count 3.78 k/cumm (1.2-6.7); Basophils % 0.6; Eosinophils % 3.5; HCT 37.4 % (36.0-46.0); Lymphocytes % 25.2; Mean Corp. HGB Concentration 32.1 g/dL (32.0-36.0); Mean Corpuscular Hemoglobin 28.8 pg (27.0-33.0); Mean Corpuscular Volume 89.9 fL (80-95); Mean Platelet Volume 11.4 fL (8.0-11.0); Monocytes % 10.6; Neutrophils % 60.1; Platelet Count 203 x1000/uL (130-400); RBC 4.16 m/cumm (4.00-5.20); RBC Distribution Width 14.4 % (11.7-14.6)
[2019-07-25 11:12] LABS: ALT 65 U/L (14-59); AST 77 U/L (15-37); Albumin 2.9 g/dL (3.4-5.0); Alkaline Phosphatase 165 U/L (46-116); BUN 14 mg/dL (7-18); Bilirubin, Total 0.5 mg/dL (0.2-1.0); CREATININE 0.73 mg/dL (0.55-1.02); Calcium 8.8 mg/dL (8.5-10.1); Chloride 104 mmol/L (98-107); Glucose 158 mg/dL (74-106); Potassium 3.2 mmol/L (3.5-5.1); Sodium 139 mmol/L (136-145)
== END 2019-07-25 10:35 ==
PROVIDERS: PCP Family Medicine; Visit Provider Internal Medicine Hematology & Oncology
DX: C50.912 Malignant neoplasm of unspecified site of left female breast (principal)
CPT/HCPCS: 36415; 80053; 85025

== ENCOUNTER 2019-08-15 09:59 | Outpatient (CLI) | payer MEDICARE, SELFPAY ==
[2019-08-15 10:36] LABS: Abs Immature Grans 0.01 k/cumm (0.0-0.09); Absolute Basophil Count 0.03 k/cumm (0.0-0.2); Absolute Lymphocyte Count 1.86 k/cumm (1.2-3.4); Absolute Monocyte Count 0.57 k/cumm (0.11-0.7); Absolute Neutrophil Count 4.16 k/cumm (1.2-6.7); Basophils % 0.4; Eosinophils % 4.3; HCT 37.2 % (36.0-46.0); HGB 12.1 g/dL (12.0-15.5); Immature Grans % 0.1 %; Lymphocytes % 26.8; Mean Corp. HGB Concentration 32.5 g/dL (32.0-36.0); Mean Corpuscular Volume 89.2 fL (80-95); Monocytes % 8.2; Neutrophils % 60.2; Platelet Count 191 x1000/uL (130-400); RBC 4.17 m/cumm (4.00-5.20); RBC Distribution Width 14.4 % (11.7-14.6); White Blood Cell Count 6.93 k/cumm (4.4-10.8)
[2019-08-15 10:50] LABS: ALT 69 U/L (14-59); AST 82 U/L (15-37); Albumin 3.1 g/dL (3.4-5.0); Alkaline Phosphatase 162 U/L (46-116); Anion Gap 11.6 mmol/L (3-11); BUN 13 mg/dL (7-18); Bilirubin, Total 0.6 mg/dL (0.2-1.0); CO2 22.4 mmol/L (21.0-32.0); CREATININE 0.65 mg/dL (0.55-1.02); Chloride 105 mmol/L (98-107); Glucose 95 mg/dL (74-106); Potassium 3.6 mmol/L (3.5-5.1); Sodium 139 mmol/L (136-145); Total Protein 7.1 g/dL (6.4-8.2)
== END 2019-08-15 10:19 ==
PROVIDERS: PCP Family Medicine; Visit Provider Internal Medicine Hematology & Oncology
DX: C50.912 Malignant neoplasm of unspecified site of left female breast (principal)
CPT/HCPCS: 36415; 80053; 85025

== ENCOUNTER 2019-09-05 02:14 | Outpatient (CLI) | payer MEDICARE, SELFPAY ==
[2019-09-05 10:38] LABS: Abs Immature Grans 0.01 k/cumm (0.0-0.09); Absolute Basophil Count 0.05 k/cumm (0.0-0.2); Absolute Eosinophil Count 0.28 k/cumm (0.0-0.7); Absolute Lymphocyte Count 1.81 k/cumm (1.2-3.4); Absolute Monocyte Count 0.69 k/cumm (0.11-0.7); Absolute Neutrophil Count 3.48 k/cumm (1.2-6.7); Basophils % 0.8; Eosinophils % 4.4; HCT 37.1 % (36.0-46.0); HGB 12.1 g/dL (12.0-15.5); Immature Grans % 0.2 %; Lymphocytes % 28.6; Mean Corp. HGB Concentration 32.6 g/dL (32.0-36.0); Mean Corpuscular Hemoglobin 29.1 pg (27.0-33.0); Mean Corpuscular Volume 89.2 fL (80-95); Mean Platelet Volume 11.2 fL (8.0-11.0); Monocytes % 10.9; Neutrophils % 55.1; Platelet Count 232 x1000/uL (130-400); RBC 4.16 m/cumm (4.00-5.20); RBC Distribution Width 14.9 % (11.7-14.6); White Blood Cell Count 6.32 k/cumm (4.4-10.8)
[2019-09-05 11:02] LABS: ALT 89 U/L (14-59); AST 85 U/L (15-37); Albumin 2.9 g/dL (3.4-5.0); Alkaline Phosphatase 189 U/L (46-116); Anion Gap 10.2 mmol/L (3-11); BUN 15 mg/dL (7-18); Bilirubin, Total 0.6 mg/dL (0.2-1.0); CO2 25.8 mmol/L (21.0-32.0); CREATININE 0.68 mg/dL (0.55-1.02); Calcium 9.1 mg/dL (8.5-10.1); Chloride 103 mmol/L (98-107); Glucose 91 mg/dL (74-106); Potassium 3.4 mmol/L (3.5-5.1); Sodium 139 mmol/L (136-145); Total Protein 7.2 g/dL (6.4-8.2)
== END 2019-09-05 02:34 ==
PROVIDERS: PCP Family Medicine; Visit Provider Internal Medicine Hematology & Oncology
DX: C50.912 Malignant neoplasm of unspecified site of left female breast (principal)
CPT/HCPCS: 36415; 80053; 85025

== ENCOUNTER 2019-09-26 01:36 | Outpatient (CLI) | payer MEDICARE, SELFPAY ==
[2019-09-26 10:56] LABS: Abs Immature Grans 0.01 k/cumm (0.0-0.09); Absolute Basophil Count 0.06 k/cumm (0.0-0.2); Absolute Eosinophil Count 0.32 k/cumm (0.0-0.7); Absolute Lymphocyte Count 1.98 k/cumm (1.2-3.4); Absolute Monocyte Count 0.59 k/cumm (0.11-0.7); Absolute Neutrophil Count 4.02 k/cumm (1.2-6.7); Basophils % 0.9; Eosinophils % 4.6; HCT 37.8 % (36.0-46.0); HGB 12.2 g/dL (12.0-15.5); Immature Grans % 0.1 %; Lymphocytes % 28.4; Mean Corp. HGB Concentration 32.3 g/dL (32.0-36.0); Mean Corpuscular Hemoglobin 28.8 pg (27.0-33.0); Mean Corpuscular Volume 89.2 fL (80-95); Mean Platelet Volume 11.7 fL (8.0-11.0); Monocytes % 8.5; Neutrophils % 57.5; Platelet Count 220 x1000/uL (130-400); RBC 4.24 m/cumm (4.00-5.20); RBC Distribution Width 15.4 % (11.7-14.6); White Blood Cell Count 6.98 k/cumm (4.4-10.8)
[2019-09-26 11:03] LABS: ALT 111 U/L (14-59); AST 102 U/L (15-37); Albumin 3.2 g/dL (3.4-5.0); Alkaline Phosphatase 206 U/L (46-116); Anion Gap 7.5 mmol/L (3-11); BUN 18 mg/dL (7-18); Bilirubin, Total 0.7 mg/dL (0.2-1.0); CO2 26.5 mmol/L (21.0-32.0); CREATININE 0.76 mg/dL (0.55-1.02); Calcium 9.2 mg/dL (8.5-10.1); Chloride 105 mmol/L (98-107); Glucose 111 mg/dL (74-106); Potassium 3.9 mmol/L (3.5-5.1); Sodium 139 mmol/L (136-145); Total Protein 7.5 g/dL (6.4-8.2)
[2019-09-26 11:05] LABS: Calculated LDL 122 mg/dL (<100); Cholesterol 204 mg/dL (<200); HDL Cholesterol 69 mg/dL (40-60); Triglyceride 66 mg/dL (<150)
[2019-09-26 11:06] LABS: Hemoglobin A1C 5.8 % (3.8-5.6)
== END 2019-09-26 01:56 ==
PROVIDERS: Family Medicine; PCP Family Medicine; Visit Provider Internal Medicine Hematology & Oncology
DX: C50.912 Malignant neoplasm of unspecified site of left female breast (principal); E11.9 Type 2 diabetes mellitus without complications
CPT/HCPCS: 36415; 80053; 80061; 83036; 85025

== ENCOUNTER 2019-10-09 00:51 | Outpatient (CLI) | payer MEDICARE, SELFPAY ==
--- NOTE | 2019-10-09 10:26 | DI.US_ITS ---
APPROVED REPORT EXAM: Comprehensive 2D, Doppler, and color-flow Echocardiogram Patient Location: Out-Patient Chassis Mechanic: Jeanie Hensley RDCS ([place]) Indications: Breast Cancer, Adverse effect of antineoplastic and immunosuppressive drugs Other Information Study Quality: Good Conclusion Left Ventricle : The left ventricle is normal size. The left ventricular systolic function is normal. The left ventricular ejection fraction is within the normal range. There is normal left ventricular wall thickness. There is normal LV segmental wall motion. Transmitral Doppler flow pattern suggests i mpaired LV relaxation. LVEF is 50-55%. Average global longitudinal strain is -16.63% Right Ventricle : The right ventricle is normal size. The right ventricular systolic function is norm al. Atria : The left atrium size is normal. The right atrium size is normal. Aortic Valve : The Aortic valve is sclerotic. Aortic valve is trileaflet. Mild aortic regurgitation. There is no aortic valvular stenosis. Great Vessels : IVC is normal in size and collapses >50% with inspiration. Please see the rest of report for additional details. Compared to echocardiogram from 06/30/2019, ejection fraction has decreased minimally from 60-65% to 5 0-55%. Wall motion Left Ventricle The left ventricle is normal size. The left ventricular systolic function is normal. The left ventric ular ejection fraction is within the normal range. There is normal left ventricular wall thickness. T here is normal LV segmental wall motion. Transmitral Doppler flow pattern suggests impaired LV relaxa tion. There is no ventricular septal defect visualized. LVEF is 50-55%. Average global longitudinal s train is -16.63% Right Ventricle The right ventricle is normal size. The right ventricular systolic function is normal. Atria The left atrium size is normal. The right atrium size is normal. Interatrial septum is intact without evidence of ASD or PFO. The atrial septum is aneurysmal. Aortic Valve The Aortic valve is sclerotic. Aortic valve is trileaflet. There is no aortic valvular stenosis. Mild aortic regurgitation. Mitral Valve There is mitral annular calcification. No evidence of mitral valve stenosis. Trace mitral regurgitati on. Tricuspid Valve The tricuspid valve is normal in structure. There is no tricuspid valve stenosis. Trace tricuspid reg urgitation. Pulmonic Valve The pulmonary valve is normal in structure. There is no pulmonic valvular stenosis. There is no pulmo alyse valvular regurgitation. Great Vessels The aortic root is normal in size. The ascending aorta is normal in size. IVC is normal in size and c ollapses >50% with inspiration. Pericardium There is no pericardial effusion. There is no pleural effusion. 2D Dimensions IVSD d PLAX 0.84 cm F: 0.6-1.0 LV Vol A2C d MOD 91.9 mL LVPW d PLAX 0.85 cm F: 0.6 - 1.0 LV Vol A4C d MOD 77.8 mL LVID d PLAX 4.00 cm F: 3.8 - 5.2 LA vol/ BSA A2C s A-L 37.4 mL/m2 LVDs 2.60 cm F: 2.2 - 3.5 LA vol/ BSA A4C s A-L 30.1 mL/m2 Ao Root d 2.92 cm F: 2.7 - 3.3 LA Vol/ BSA Biplane s A-L 36.5 mL/m2 RA Area A4C 12.56 cm2 LA Area A4C s MOD 19.07 cm2 RA Vol/ BSA A4C s A-L 17.8 mL/m2 LA Area A2C s MOD 19.54 cm2 Ao Asc Diam d 3.57 cm F: 2.3 - 3.1 LV EF A4C MOD 53.5 % LV EF Teichholz 63.5 % LV EF A2C MOD 47.9 % LVEF (Jerez's) 49.60 % F: 54 - 74 LV EF Biplane MOD 49.6 % LV Volume 66.78 mL F: 46 - 106 LV Volume Index 38.60 mL/m2 F: 29 - 61 LV Vol Biplane MOD 84.7 mL FS 34.00 % M-Mode TAPSE 2.34 cm (M/F) >1.7 LV Diastology MV E' medial 0.039 (>0.07 m/s) E/A Ratio 0.6 LV E/e MED 16.40 (<14) MV E Vmax 0.64 (0.4-1.3 m/s) MV E' lateral 0.085 (>0.1 m/s) MV A Vmax 1.00 (0.4-1.3 m/s) LV E/e LAT 7.55 (<14) MV E/A Ratio 0.62 MV E/E' medial 16.43 MV E/E' lateral 7.55 Aortic Valve LVOT Area 3.52 cm2 AoV Area Vmax 3.02 cm2 LVOT Vmax 1.42 m/s AoV Area/ BSA (Vmax) 1.74 cm2/m2 LVOT Mean Rambo. 0.82 m/s RAY Mean Rambo. 2.56 cm2 LVOT Peak Grad 8.1 mmHg RAY Mean Rambo. Index 1.48 cm2/m2 LVOT Mean Grad 3.4 mmHg AR DT 2033 msec LVOT VTI 0.277 m AR PHT 590 msec LVOT Diam s 2.10 cm (M/F) 1.5-2.5 AoV Vmax 1.65 (0.5-1.3 m/s) Velocity Ratio 0.86 AoV Mean Rambo. 1.13 m/s AoV Peak Grad 10.9 mmHg LVOT SV 97.48 mL AoV Mean Grad 5.8 (<5 mmHg) AoV VTI 0.333 (0.18-0.25 m) AoV Area VTI 2.93 (2.5-4.5 cm2) AoV Area/ BSA (VTI) 1.69 cm/m2 Mitral Valve MV DT 244 (160-240 msec) MV PHT 71 msec MV Area PHT 3.10 cm2 Pulmonary Valve PV Vmax 1.15 (0.5-1.5 m/s) RVOT Peak Gr. 1.91 mmHg PV Peak Grad 5.3 mmHg RVOT Mean Gr. 1.00 mmHg PV Mean Grad 2.9 mmHg RVOT VTI 0.139 m PV VTI 0.224 m RVOT Vmax 0.69 m/s Tricuspid Valve TR Peak Grad 23.9 mmHg TR Vmax 2.44 m/s RA Pressure 3.00 mmHg RVSP (TR) 26.9 mmHg
== END 2019-10-09 01:11 ==
PROVIDERS: PCP Family Medicine; Visit Provider Nurse Practitioner Adult Health
DX: R01.1 Cardiac murmur, unspecified (principal); C50.912 Malignant neoplasm of unspecified site of left female breast; T45.1X5A Adverse effect of antineoplastic and immunosuppressive drugs, initial encounter; I35.8 Other nonrheumatic aortic valve disorders; I10 Essential (primary) hypertension
CPT/HCPCS: 93306

== ENCOUNTER 2019-11-06 02:24 | Outpatient (CLI) | payer MEDICARE, SELFPAY ==
--- NOTE | 2019-11-06 10:26 | DI.US_ITS ---
APPROVED REPORT EXAM: Comprehensive 2D, Doppler, and color-flow Echocardiogram Patient Location: Out-Patient Biodiesel Engine Specialist: Jeanie Hensley RDCS ([place]) Indications: Breast CA, High risk medication, Decreased Ejection fraction Limited exam to follow up on ejection fraction was done. Other Information Study Quality: Good Conclusion This is a limited echocardiogram to evaluate LV function. Left Ventricle : The left ventricle is normal size. The left ventricular systolic function is normal. The left ventricular ejection fraction is within the normal range. There is normal left ventricular wall thickness. There is normal LV segmental wall motion. LVEF is 57%. Average global longitudinal s train is -18%. Right Ventricle : Right ventricular systolic function is grossly normal. Compared to echocardiogram from 10/09/2019: There is no significant change. Wall motion Left Ventricle The left ventricle is normal size. The left ventricular systolic function is normal. The left ventric ular ejection fraction is within the normal range. There is normal left ventricular wall thickness. T here is normal LV segmental wall motion. LVEF is 57%. Average global longitudinal strain is -18%. Right Ventricle Right ventricular systolic function is grossly normal. 2D Dimensions IVSD d PLAX 0.84 cm F: 0.6-1.0 LV Vol A2C d MOD 87.9 mL LVPW d PLAX 0.87 cm F: 0.6 - 1.0 LV Vol A4C d MOD 76.1 mL LVID d PLAX 4.05 cm F: 3.8 - 5.2 LA vol/ BSA A2C s A-L 33.4 mL/m2 LVDs 2.65 cm F: 2.2 - 3.5 LA vol/ BSA A4C s A-L 28.4 mL/m2 LV EF Teichholz 63.5 % LA Vol/ BSA Biplane s A-L 31.2 mL/m2 LVEF (Jerez's) 56.92 % F: 54 - 74 LA Area A4C s MOD 17.30 cm2 LV Volume 65.37 mL F: 46 - 106 LA Area A2C s MOD 18.54 cm2 LV Volume Index 38.45 mL/m2 F: 29 - 61 LV EF A4C MOD 57.0 % LV Vol Biplane MOD 82.3 mL LV EF A2C MOD 57.9 % FS 34.00 % LV EF Biplane MOD 56.9 % SV 46.86 mL SV Index 27.55 mL/m2
== END 2019-11-06 02:44 ==
PROVIDERS: PCP Family Medicine; Visit Provider Internal Medicine Hematology & Oncology
DX: C50.912 Malignant neoplasm of unspecified site of left female breast (principal); Z79.899 Other long term (current) drug therapy; R93.1 Abnormal findings on diagnostic imaging of heart and coronary circulation; I10 Essential (primary) hypertension
CPT/HCPCS: 93308

== ENCOUNTER 2019-11-07 03:03 | Outpatient (RCR) | payer MEDICARE, SELFPAY ==
[2019-11-07 10:23] LABS: Abs Immature Grans 0.03 k/cumm (0.0-0.09); Absolute Basophil Count 0.03 k/cumm (0.0-0.2); Absolute Eosinophil Count 0.21 k/cumm (0.0-0.7); Absolute Lymphocyte Count 2.06 k/cumm (1.2-3.4); Absolute Monocyte Count 0.88 k/cumm (0.11-0.7); Absolute Neutrophil Count 6.37 k/cumm (1.2-6.7); Basophils % 0.3; Eosinophils % 2.2; HCT 37.2 % (36.0-46.0); HGB 12.4 g/dL (12.0-15.5); Immature Grans % 0.3 %; Lymphocytes % 21.5; Mean Corp. HGB Concentration 33.3 g/dL (32.0-36.0); Mean Corpuscular Hemoglobin 29.5 pg (27.0-33.0); Mean Corpuscular Volume 88.4 fL (80-95); Mean Platelet Volume 12.1 fL (8.0-11.0); Monocytes % 9.2; Neutrophils % 66.5; Platelet Count 239 x1000/uL (130-400); RBC 4.21 m/cumm (4.00-5.20); RBC Distribution Width 14.9 % (11.7-14.6); White Blood Cell Count 9.58 k/cumm (4.4-10.8)
[2019-11-07 10:32] LABS: ALT 128 U/L (14-59); AST 93 U/L (15-37); Albumin 3.1 g/dL (3.4-5.0); Alkaline Phosphatase 197 U/L (46-116); Anion Gap 9.3 mmol/L (3-11); BUN 17 mg/dL (7-18); Bilirubin, Total 0.6 mg/dL (0.2-1.0); CO2 23.7 mmol/L (21.0-32.0); CREATININE 0.75 mg/dL (0.55-1.02); Calcium 9.2 mg/dL (8.5-10.1); Chloride 103 mmol/L (98-107); Glucose 94 mg/dL (74-106); Potassium 3.7 mmol/L (3.5-5.1); Sodium 136 mmol/L (136-145); Total Protein 7.2 g/dL (6.4-8.2)
== END 2019-11-09 23:59 | disposition home or self-care (01) ==
LOC: INF 03:03
PROVIDERS: PCP Family Medicine; Visit Provider Internal Medicine Hematology & Oncology
DX: C50.912 Malignant neoplasm of unspecified site of left female breast (principal)
CPT/HCPCS: 36415; 80053; 85025

== ENCOUNTER 2019-12-19 03:23 | Outpatient (CLI) | payer MEDICARE, SELFPAY ==
[2019-12-19 10:22] LABS: Abs Immature Grans 0.02 k/cumm (0.0-0.09); Absolute Basophil Count 0.04 k/cumm (0.0-0.2); Absolute Eosinophil Count 0.14 k/cumm (0.0-0.7); Absolute Lymphocyte Count 1.74 k/cumm (1.2-3.4); Absolute Monocyte Count 0.66 k/cumm (0.11-0.7); Absolute Neutrophil Count 4.82 k/cumm (1.2-6.7); Basophils % 0.5; Eosinophils % 1.9; HGB 12.4 g/dL (12.0-15.5); Immature Grans % 0.3 %; Lymphocytes % 23.5; Mean Corp. HGB Concentration 32.6 g/dL (32.0-36.0); Mean Corpuscular Hemoglobin 29.4 pg (27.0-33.0); Mean Platelet Volume 11.8 fL (8.0-11.0); Monocytes % 8.9; Neutrophils % 64.9; Platelet Count 205 x1000/uL (130-400); RBC 4.22 m/cumm (4.00-5.20); RBC Distribution Width 14.9 % (11.7-14.6); White Blood Cell Count 7.42 k/cumm (4.4-10.8)
[2019-12-19 10:39] LABS: Prothrombin Time 10.5 sec (9.3-11.0)
[2019-12-19 10:48] LABS: ALT 122 U/L (14-59); AST 120 U/L (15-37); Alkaline Phosphatase 181 U/L (46-116); Anion Gap 10.9 mmol/L (3-11); BUN 18 mg/dL (7-18); Bilirubin, Total 0.6 mg/dL (0.2-1.0); CO2 25.1 mmol/L (21.0-32.0); CREATININE 0.83 mg/dL (0.55-1.02); Calcium 9.1 mg/dL (8.5-10.1); Chloride 102 mmol/L (98-107); Glucose 167 mg/dL (74-106); Potassium 3.5 mmol/L (3.5-5.1); Sodium 138 mmol/L (136-145)
== END 2019-12-19 03:43 ==
PROVIDERS: Nurse Practitioner Adult Health; PCP Family Medicine; Visit Provider Internal Medicine Hematology & Oncology
DX: C50.912 Malignant neoplasm of unspecified site of left female breast (principal); K74.3 Primary biliary cirrhosis
CPT/HCPCS: 36415; 80053; 85025; 85610

== ENCOUNTER 2020-02-26 01:16 | Outpatient (CLI) | payer MEDICARE, SELFPAY ==
--- NOTE | 2020-02-26 | DI.US_ITS ---
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 The liver shows coarse echotexture and there is a nodular contour of the liver suggesting cirrhosis. There is an incidental 18 millimeter simple cyst of the right hepatic lobe.. No suspicious hepatic lesion seen. There is no evidence of cholelithiasis or biliary dilatation. No gallbladder wall thickening or peric holecystic fluid collection. Pancreas appears intact as visualized. Spleen is unremarkable in appearance with no focal lesion. Kidneys are normal in size and shape. No renal mass, hydronephrosis, or nephrolithiasis. Abdominal aorta and IVC are of normal diameter. IMPRESSION: Findings consistent with hepatic cirrhosis, no focal hepatic lesion identified.
== END 2020-02-26 01:36 ==
PROVIDERS: PCP Family Medicine; Visit Provider Nurse Practitioner Adult Health
DX: K83.09 Other cholangitis (principal); K76.89 Other specified diseases of liver; K74.3 Primary biliary cirrhosis
CPT/HCPCS: 36415; 80053; 76700; 85025

== ENCOUNTER 2020-02-26 04:17 | Outpatient (CLI) | payer MEDICARE, SELFPAY ==
[2020-02-26 09:01] LABS: Abs Immature Grans 0.01 10^3/uL (0.0-0.06); Absolute Basophil Count 0.07 10^3/uL (0.0-0.2); Absolute Eosinophil Count 0.16 10^3/uL (0.0-0.7); Absolute Lymphocyte Count 1.84 10^3/uL (1.2-3.4); Absolute Monocyte Count 0.59 10^3/uL (0.1-0.8); Absolute Neutrophil Count 3.63 10^3/uL (1.2-6.7); Basophils % 1.1; Eosinophils % 2.5; HCT 39.6 % (36.0-46.0); HGB 12.9 g/dL (11.2-15.7); Immature Grans % 0.2; Lymphocytes % 29.2; MCH 29.7 pg (27.0-33.0); MCHC 32.6 % (32.0-36.0); MPV 12.1 fL (8.0-11.0); Monocytes % 9.4; Neutrophils % 57.6; Nucleated RBC 0 %; Platelet Count 175 10^3/uL (130-400); RBC 4.35 10^6/uL (3.93-5.22); RDW 14.9 % (11.7-14.6); RDW-SD 49.7 fL
[2020-02-26 10:36] LABS: ALT 82 U/L (14-59); AST 105 U/L (15-37); Albumin 3.1 g/dL (3.4-5.0); Alkaline Phosphatase 174 U/L (46-116); Anion Gap 8.9 mmol/L (3-11); BUN 12 mg/dL (7-18); CO2 27.1 mmol/L (21.0-32.0); CREATININE 0.63 mg/dL (0.55-1.02); Calcium 9.1 mg/dL (8.5-10.1); Chloride 104 mmol/L (98-107); Glucose 94 mg/dL (74-106); Potassium 3.9 mmol/L (3.5-5.1); Sodium 140 mmol/L (136-145); Total Protein 6.7 g/dL (6.4-8.2)
== END 2020-02-26 04:37 ==
PROVIDERS: PCP Family Medicine; Visit Provider Nurse Practitioner Adult Health
DX: K74.3 Primary biliary cirrhosis (principal)
CPT/HCPCS: 36415; 80053; 85025

== ENCOUNTER 2020-03-19 02:48 | Outpatient (CLI) | payer MEDICARE, SELFPAY ==
[2020-03-19 09:20] LABS: Abs Immature Grans 0.01 10^3/uL (0.0-0.06); Absolute Basophil Count 0.08 10^3/uL (0.0-0.2); Absolute Eosinophil Count 0.19 10^3/uL (0.0-0.7); Absolute Neutrophil Count 3.41 10^3/uL (1.2-6.7); Basophils % 1.3; Eosinophils % 3.2; HCT 37.9 % (36.0-46.0); HGB 12.5 g/dL (11.2-15.7); Immature Grans % 0.2; Lymphocytes % 30.1; MCH 29.6 pg (27.0-33.0); MCV 89.8 fL (80-95); MPV 11.6 fL (8.0-11.0); Monocytes % 8.3; Neutrophils % 56.9; Nucleated RBC 0 %; Platelet Count 197 10^3/uL (130-400); RBC 4.22 10^6/uL (3.93-5.22); RDW 15.3 % (11.7-14.6); RDW-SD 50.4 fL; WBC 5.99 10^3/uL (4.4-10.8)
[2020-03-19 09:32] LABS: ALT 67 U/L (14-59); AST 103 U/L (15-37); Albumin 2.9 g/dL (3.4-5.0); Alkaline Phosphatase 167 U/L (46-116); Anion Gap 8.7 mmol/L (3-11); BUN 9 mg/dL (7-18); Bilirubin, Total 1.2 mg/dL (0.2-1.0); CO2 27.3 mmol/L (21.0-32.0); Calcium 9.1 mg/dL (8.5-10.1); Chloride 105 mmol/L (98-107); Glucose 97 mg/dL (74-106); Potassium 3.6 mmol/L (3.5-5.1); Sodium 141 mmol/L (136-145); Total Protein 7.2 g/dL (6.4-8.2)
[2020-03-19 10:58] LABS: Calculated LDL 129 mg/dL (<100); Cholesterol 189 mg/dL (<200); HDL Cholesterol 46 mg/dL (40-60); Triglyceride 72 mg/dL (<150)
== END 2020-03-19 03:08 ==
PROVIDERS: Nurse Practitioner Adult Health; PCP Family Medicine; Visit Provider Internal Medicine Hematology & Oncology
DX: E78.5 Hyperlipidemia, unspecified (principal); K74.3 Primary biliary cirrhosis; C50.912 Malignant neoplasm of unspecified site of left female breast
CPT/HCPCS: 36415; 80053; 80061; 85025

== ENCOUNTER 2020-06-09 02:35 | Outpatient (CLI) | payer MEDICARE, SELFPAY ==
[2020-06-09 10:00] LABS: Hemoglobin A1C 5.8 % (<5.7)
[2020-06-09 10:17] LABS: ALT 72 U/L (14-59); AST 117 U/L (15-37); Albumin 2.7 g/dL (3.4-5.0); Alkaline Phosphatase 182 U/L (46-116); Anion Gap 7.5 mmol/L (3-11); BUN 17 mg/dL (7-18); Bilirubin, Total 1.1 mg/dL (0.2-1.0); CO2 26.5 mmol/L (21.0-32.0); CREATININE 0.79 mg/dL (0.55-1.02); Calcium 9.5 mg/dL (8.5-10.1); Chloride 107 mmol/L (98-107); Glucose 132 mg/dL (74-106); Potassium 3.4 mmol/L (3.5-5.1); Sodium 141 mmol/L (136-145); Total Protein 6.5 g/dL (6.4-8.2)
== END 2020-06-09 02:55 ==
PROVIDERS: PCP Family Medicine; Visit Provider Nurse Practitioner Adult Health
DX: E11.9 Type 2 diabetes mellitus without complications (principal)
CPT/HCPCS: 36415; 80053; 83036

== ENCOUNTER 2020-07-20 02:02 | Outpatient (CLI) | payer MEDICARE, SELFPAY ==
[2020-07-21 16:09] LABS: COVID-19 RT-PCR UVMMC Result Positive (Negative)
== END 2020-07-20 02:03 | disposition home or self-care (01) ==
LOC: LBO 02:02
PROVIDERS: PCP Family Medicine; Visit Provider Family Medicine
DX: Z20.822 Contact with and (suspected) exposure to COVID-19 (principal)
CPT/HCPCS: U0003; U0005

== ENCOUNTER 2020-07-23 05:39 | Outpatient (CLI) | payer MEDICARE, SELFPAY ==
[2020-07-23 09:35] VITALS: BP 108/69; PULSE 93; RESP 20; TEMP 37.2; O2SAT 92
[2020-07-23] MEDS: Normal Saline 500 ML 30 ML IV (09:50)
[2020-07-23] MEDS: Normal Saline Flush 10 ML SYR IVP (09:50)
[2020-07-23 09:55] VITALS: BP 109/71; PULSE 92; RESP 18; TEMP 36.9; O2SAT 92
[2020-07-23 10:25] VITALS: BP 109/70; PULSE 88; RESP 18; TEMP 36.8; O2SAT 92
== END 2020-07-23 05:40 | disposition home or self-care (01) ==
PROVIDERS: PCP Family Medicine; Visit Provider Family Medicine
DX: U07.1 COVID-19 (principal)
CPT/HCPCS: 96365

== ENCOUNTER 2020-08-16 01:32 | Outpatient (CLI) | payer MEDICARE, SELFPAY ==
--- NOTE | 2020-08-16 06:30 | DI.US_ITS ---
EXAM: US SOFT TISS EXTREMITY/GROIN CLINICAL HISTORY: pain,SYNOVIAL CYST LT POPLITEAL SPACE,M71.22. TECHNIQUE: Ultrasound was performed using standard protocol. COMPARISON: CT CT CHEST/ABD/PEL W from 12/06/[address] CHEST/ABD/PEL W from 12/06/2018 FINDINGS: Sonographic assessment utilizing grayscale and color Doppler imaging was performed and targeted to th e area of clinical concern. The left groin was scanned. A hernia was demonstrated in the left inguinal canal containing a loop of bowel which is reducible. It is most prominent when the patient is upright and with Valsalva. The neck is measured at 1.5 cm. The overall hernia size is measured at 4.4 x 4.3 cm. IMPRESSION: Reducible left inguinal hernia containing bowel. DATA REPOSITORY:
== END 2020-08-16 01:52 ==
PROVIDERS: PCP Family Medicine; Visit Provider Nurse Practitioner Family
DX: K40.90 Unilateral inguinal hernia, without obstruction or gangrene, not specified as recurrent (principal); M71.22 Synovial cyst of popliteal space [Baker], left knee; R19.09 Other intra-abdominal and pelvic swelling, mass and lump
CPT/HCPCS: 76882

== ENCOUNTER 2020-09-03 19:27 | Outpatient (CLI) | payer MEDICARE, SELFPAY ==
--- NOTE | 2020-09-03 | DI.US_ITS ---
EXAM: US EXTREMITY VENOUS BI CLINICAL HISTORY: LEG SWELLING, M79.89,PROEP. TECHNIQUE: Ultrasound performed using standard protocol. COMPARISON: US US SOFT TISS EXTREMITY/GROIN from 08/16/2020 FINDINGS: Duplex venous ultrasound was performed according to the usual protocol. The deep veins are freely com pressible throughout and there is normal flow augmentation with manual calf compression. 2D and Doppl er evaluation are unremarkable. IMPRESSION: No evidence of deep venous thrombosis of the right or left lower extremity. DATA REPOSITORY:
== END 2020-09-03 19:47 ==
PROVIDERS: PCP Family Medicine; Visit Provider Anesthesiology
DX: R22.41 Localized swelling, mass and lump, right lower limb (principal); R22.42 Localized swelling, mass and lump, left lower limb; M79.89 Other specified soft tissue disorders
CPT/HCPCS: 93970

== ENCOUNTER 2020-09-08 01:28 | Outpatient (CLI) | payer MEDICARE, SELFPAY ==
--- NOTE | 2020-09-08 12:50 | DI.US_ITS ---
APPROVED REPORT EXAM: Comprehensive 2D, Doppler, and color-flow Echocardiogram Patient Location: Out-Patient Patient Financial Advocate: Jeanie Hensley RDCS ([facility]) Indications: Pre operative exam, Bilateral leg edema Other Information Study Quality: Good Conclusion Left Ventricle : The left ventricle is normal size. The left ventricular systolic function is normal. The left ventricular ejection fraction is within the normal range. There is normal left ventricular wall thickness. There is hypertrophy of the basal septum without LVOT obstruction. There is normal L V segmental wall motion. The left ventricular diastolic function is normal. LVEF is 61%. Right Ventricle : The right ventricle is normal size. The right ventricular systolic function is norm al. The RVSP is 27.1mmHg. Atria : Left atrium is borderline dilated. The right atrium size is normal. Great Vessels : The aortic root is normal in size. The ascending aorta is mildly dilated. Aortic arch is normal in caliber. IVC is normal in size and collapses >50% with inspiration. Please see remainder of study for further details. Compared to study from 10/09/2019, there is no significant change. GLS was not calculated. Wall motion Left Ventricle The left ventricle is normal size. The left ventricular systolic function is normal. The left ventric ular ejection fraction is within the normal range. There is normal left ventricular wall thickness. T here is hypertrophy of the basal septum without LVOT obstruction. There is normal LV segmental wall m otion. The left ventricular diastolic function is normal. There is no ventricular septal defect visua lized. LVEF is 61%. Right Ventricle The right ventricle is normal size. The right ventricular systolic function is normal. The RVSP is 27 .1mmHg. Atria Left atrium is borderline dilated. The right atrium size is normal. Atrial septal aneurysm is present . The interatrial septum is intact with no evidence for an atrial septal defect. Aortic Valve The Aortic valve is sclerotic. Aortic valve is trileaflet. No hemodynamically significant valvular ao rtic stenosis. Trace aortic regurgitation. Mitral Valve Mild mitral annular calcification. No evidence of mitral valve stenosis. Trace mitral regurgitation. Tricuspid Valve The tricuspid valve is normal in structure. There is no tricuspid valve stenosis. Trace tricuspid reg urgitation. Pulmonic Valve The pulmonary valve is normal in structure. There is no pulmonic valvular stenosis. Trace pulmonic re gurgitation. Great Vessels The aortic root is normal in size. The ascending aorta is mildly dilated. Aortic arch is normal in ca liber. IVC is normal in size and collapses >50% with inspiration. Pericardium There is no pericardial effusion. 2D Dimensions IVSD d PLAX 0.91 cm F: 0.6-1.0 LV Vol A2C d MOD 89.6 mL LVPW d PLAX 0.91 cm F: 0.6 - 1.0 LV Vol A4C d MOD 75.8 mL LVID d PLAX 4.00 cm F: 3.8 - 5.2 LA vol/ BSA A2C s A-L 42.4 mL/m2 LVDs 2.60 cm F: 2.2 - 3.5 LA vol/ BSA A4C s A-L 26.1 mL/m2 Ao Root d 2.83 cm F: 2.7 - 3.3 LA Vol/ BSA Biplane s A-L 33.6 mL/m2 RA Area A4C 8.04 cm2 LA Area A4C s MOD 16.76 cm2 RA Vol/ BSA A4C s A-L 10.6 mL/m2 LA Area A2C s MOD 21.15 cm2 Ao Asc Diam d 3.35 cm F: 2.3 - 3.1 LV EF A4C MOD 61.2 % LV EF Teichholz 63.9 % LV EF A2C MOD 61.5 % LVEF (Jerez's) 61.07 % F: 54 - 74 LV EF Biplane MOD 61.1 % LV Volume 66.26 mL F: 46 - 106 SV 50.42 mL LV Volume Index 40.15 mL/m2 F: 29 - 61 SV Index 30.51 mL/m2 LV Vol Biplane MOD 82.6 mL FS 34.30 % M-Mode TAPSE 2.30 cm (M/F) >1.7 LV Diastology MV E' medial 0.090 (>0.07 m/s) E/A Ratio 0.5 LV E/e MED 6.70 (<14) MV E Vmax 0.61 (0.4-1.3 m/s) MV E' lateral 0.103 (>0.1 m/s) MV A Vmax 1.15 (0.4-1.3 m/s) LV E/e LAT 5.90 (<14) MV E/A Ratio 0.53 MV E/E' medial 6.72 MV E/E' lateral 5.92 Aortic Valve LVOT Area 2.97 cm2 AoV Area Vmax 2.50 cm2 LVOT Vmax 1.75 m/s AoV Area/ BSA (Vmax) 1.51 cm2/m2 LVOT Mean Rambo. 1.00 m/s RAY Mean Rambo. 2.09 cm2 LVOT Peak Grad 12.3 mmHg RAY Mean Rambo. Index 1.27 cm2/m2 LVOT Mean Grad 4.8 mmHg AR DT 913 msec LVOT VTI 0.256 m AR PHT 265 msec LVOT Diam s 1.90 cm AoV Vmax 2.09 m/s Velocity Ratio 0.83 AoV Mean Rambo. 1.41 m/s AoV Peak Grad 17.4 mmHg LVOT SV 76.00 mL AoV Mean Grad 9.1 mmHg AoV VTI 0.304 m AoV Area VTI 2.50 cm2 AoV Area/ BSA (VTI) 1.51 cm/m2 Mitral Valve MV DT 213 (160-240 msec) MV PHT 62 msec MV Area PHT 3.56 cm2 MV VTI 0.258 m MV VTI Annulus 0.264 m MV Area VTI 3.01 (4.0-6.0 cm2) Pulmonary Valve PV Vmax 1.63 (0.5-1.5 m/s) RVOT Peak Gr. 3.82 mmHg PV Peak Grad 10.6 mmHg RVOT Mean Gr. 2.30 mmHg PV Mean Grad 5.6 mmHg RVOT VTI 0.174 m PV VTI 0.252 m RVOT Vmax 0.98 m/s Tricuspid Valve TR Peak Grad 24.1 mmHg TR Vmax 2.46 m/s RA Pressure 3.00 mmHg RVSP (TR) 27.1 mmHg
== END 2020-09-08 01:48 ==
PROVIDERS: PCP Family Medicine; Visit Provider Family Medicine
DX: R60.0 Localized edema (principal); I51.7 Cardiomegaly; I77.810 Thoracic aortic ectasia
CPT/HCPCS: 93306

== ENCOUNTER 2020-11-25 11:20 | Inpatient (IN) | payer MEDICARE, SELFPAY ==
[2020-11-25] VITALS (62 sets, daily range): BP systolic 76–125; BP diastolic 29–70; PULSE 86–103; RESP 13–23; TEMP 36.3–37; O2SAT 94–100
--- NOTE | 2020-11-25 11:15 | RT.EKG_ITS ---
APPROVED REPORT Exam: Resting ECG Reason for Exam: altered mental status Patient Location: E HR:100 bpm ECG Measurements Heart Rate 100 AXIS OR 191 P 22 QRSd 91 QRS -16 QT 373 T 12 QTc 482 Conclusion Sinus tachycardia...rate> 99 Inferior infarct, old...Q >35mS, II III aVF
--- NOTE | 2020-11-25 11:45 | DI.CT_ITS ---
Exam(s) CT HEAD CERVICAL SPINE WO EXAM: CT HEAD CERVICAL SPINE WO CLINICAL HISTORY: fall, head trauma, slurred speech, lt face weaknes. TECHNIQUE: Imaging Protocol: Axial computed tomography images with coronal and sagittal reformatted images were created and reviewed COMPARISON: No exams were available for comparison FINDINGS: BRAIN: There are no skull fractures nor fluid in the visualized paranasal sinuses. Mucosal thickening in th e left sphenoid sinus is incidentally noted. There is no evidence of intracranial hemorrhage, mass effect, or shift of midline structures. There are no extra-axial fluid collections. The ventricles are not enlarged or shifted and there is no blo od within the ventricular system nor within the basal cisterns. There is symmetrical bifrontal atrophy. CERVICAL SPINE: There is no evidence of fracture nor listhesis. No significant prevertebral soft tissue swelling. Chronic multilevel degenerative disc disease at C5-6 and C6-7 level noted. Also moderate disc diseas e higher up. There is no tight spinal canal stenosis. There is no significant facet joint malalignment. No significant osseous lesions evident. IMPRESSION: No acute intracranial findings on this noninfused CT scan of the brain. No evidence of cervical spine fracture, malalignment, nor acute compromise of the cervical spinal can al. Multilevel degenerative changes in the cervical spine noted. RADIATION DOSE DELIVERED: 946.25mGy.cm Total DLP DATA REPOSITORY: All CT scans at this facility are submitted to the National Radiology Data Registry (NRDR) Dose Index Registry (DIR) with the [employer] ([employer]). RADIATION OPTIMIZATION: All CT scans at this facility use at least one of these dose optimization te chniques: automated exposure control; mA and/or kV adjustment per patient size (includes targeted exa ms where dose is matched to clinical indication); or iterative reconstruction.
--- NOTE | 2020-11-25 11:45 | DI.RAD_ITS ---
Exam(s) XR PELVIS AP EXAM: XR PELVIS AP CLINICAL HISTORY: fall. TECHNIQUE: 2D digital imaging was performed. COMPARISON: CR XR lumbar spine complete from 02/26/2018 FINDINGS: There is no evidence of acute pelvic nor hip fracture. No diastasis of the SI joints and symphysis p ubis. Mild degenerative changes in the hips. Bone density is age-appropriate. IMPRESSION: DATA REPOSITORY: RADIATION DOSE DELIVERED:
--- NOTE | 2020-11-25 11:45 | DI.RAD_ITS ---
Exam(s) XR CHEST 2V PA LATERAL EXAM: XR CHEST 2V PA LATERAL CLINICAL HISTORY: fall. TECHNIQUE: 2D digital imaging was performed. COMPARISON: CR CHEST 2 VIEWS PA,LAT from 04/20/2017 FINDINGS: Heart size is upper normal. The mediastinum is not widened. 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 No new infiltrates nor pleural effusions. No pul monary edema. Incidentally noted is evidence of previous rotator cuff surgery in the right shoulder. Calcific tend initis in the left shoulder. Also multiple surgical clips in left axilla. 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 Other findings as above. DATA REPOSITORY: RADIATION DOSE DELIVERED:
[2020-11-25 12:07] LABS: Abs Immature Grans 0.03 10^3/uL (0.0-0.06); Absolute Basophil Count 0.06 10^3/uL (0.0-0.2); Absolute Eosinophil Count 0.04 10^3/uL (0.0-0.7); Absolute Monocyte Count 0.82 10^3/uL (0.1-0.8); Basophils % 0.6; Eosinophils % 0.4; HCT 30.8 % (36.0-46.0); HGB 10.7 g/dL (11.2-15.7); Immature Grans % 0.3; Lymphocytes % 17.3; MCH 28.6 pg (27.0-33.0); MCHC 34.7 % (32.0-36.0); MCV 82.4 fL (80-95); MPV 11.8 fL (8.0-11.0); Monocytes % 8.9; Neutrophils % 72.5; Nucleated RBC 0 %; Platelet Count 187 10^3/uL (130-400); RBC 3.74 10^6/uL (3.93-5.22); RDW 15.5 % (11.7-14.6); RDW-SD 45.6 fL; WBC 9.25 10^3/uL (4.4-10.8)
[2020-11-25 12:22] LABS: Bilirubin Negative (Negative); Blood Trace-intact (Negative); Clarity Clear (Clear); Glucose Negative (Negative); Ketones Trace mg/dL (Negative); Leukocyte Esterase Negative (Negative); Nitrite Negative (Negative); Specific Gravity 1.015 (1.005-1.025); pH 6.5 (5-8)
[2020-11-25 12:23] LABS: ALT 47 U/L (14-59); AST 99 U/L (15-37); Alkaline Phosphatase 203 U/L (46-116); Anion Gap 12.3 mmol/L (3-11); BUN 30 mg/dL (7-18); Bilirubin, Total 1.6 mg/dL (0.2-1.0); CO2 25.7 mmol/L (21.0-32.0); CREATININE 1.1 mg/dL (0.55-1.02); Calcium 8.5 mg/dL (8.5-10.1); Chloride 102 mmol/L (98-107); Estimated GFR 47.43 (mL/min/1.73m2); Glucose 101 mg/dL (74-106); Magnesium 1.9 mg/dL (1.8-2.4); Sodium 140 mmol/L (136-145); Total Protein 6.4 g/dL (6.4-8.2); Troponin I < 0.05 ng/mL (<0.06)
[2020-11-25 12:27] LABS: Potassium 2.9 mmol/L (3.5-5.1)
[2020-11-25 12:40] LABS: Bacteria Rare HPF (Negative); C & S Indicated? No; Casts Negative LPF (Negative); Crystals Negative HPF (Negative); Epithelial Cells Negative HPF (Negative); Mucus Negative (Negative); Other Cells Negative (Negative); RBC 0-2 HPF (0-2); WBC Negative HPF (0-5)
[2020-11-25 13:15] LABS: Creatine Kinase 194 U/L (26-192)
[2020-11-25] MEDS: POTASSIUM CHLORIDE 20 MEQ/100 ML BAG 50 MEQ IVPB (13:40)
--- NOTE | 2020-11-25 14:32 | W.ED.GENAD ---
Discharge Plan Disposition Patient Disposition: [facility] INPATIENT Condition: Serious Discharge Details Clinical Impression: Syncope, Anemia, Hypokalemia Primary Care Provider: Miguel Morrow ED Provider: Panfilo Duque Home Meds and New Rx's Prescriptions: No Action ibuprofen 600 mg tablet 600 mg PO TID PRN (Reason: pain) Qty: 90 RF: 3 cholestyramine-aspartame 4 gram powder 1 pwd PO DAILY RF: 0 ursodiol 300 mg capsule 300 mg PO TID RF: 0 atorvastatin 40 mg tablet 40 mg PO DAILY Qty: 90 RF: 4 anastrozole [Arimidex] 1 mg tablet 1 mg PO DAILY RF: 0 ascorbic acid (vitamin C) [Vitamin C] 500 MG capsule, extended release 500 mg PO DAILY RF: 0 cholecalciferol (vitamin D3) [Vitamin D3] 2,000 UNIT capsule 1,000 unit PO DAILY RF: 0 magnesium amino acid chelate 100 MG tablet 133 mg PO DAILY RF: 0 (DME) blood-glucose meter [FreeStyle Lite Meter] 1 EACH kit 1 ea Miscellaneous DAILY Qty: 1 RF: 0 zinc sulfate 220 (50) mg capsule 5 mg PO DAILY RF: 0 albuterol sulfate [ProAir HFA] 90 mcg/actuation HFA aerosol inhaler 1 puff Inhalation Q6H PRN Qty: 3 RF: 4 (DME) FreeStyle Lite Strips Strip 1 ea Miscellaneous DAILY Qty: 100 RF: 5 (DME) lancets [FreeStyle Lancets] 28 gauge misc 1 ea Miscellaneous DAILY Qty: 100 RF: 6 lisinopril-hydrochlorothiazide 20-12.5 mg tablet 1 tab PO DAILY Qty: 90 RF: 4 metformin 500 mg tablet 500 mg PO BID Qty: 180 RF: 4 furosemide 20 mg tablet 20 mg PO DAILY Qty: 30 RF: 0 ibuprofen [Advil] 200 MG tablet 400 mg PO PRN PRNRF: 0 Medical Decision Making [id number] -- 85-year-old female with history of multiple medical problems, had Covid in July and has been told that she has long Covid, here with altered mental status, found by family member on her floor with unknown events leading up to her being on the floor this morning, also with recent mild slurring to her speech that was first noted by family member last night. Patient does have some mild slurred speech as well as bilateral lower extremity equal weakness. Patient does have evidence of head trauma with dried blood in her nares. EKG was reviewed and interpreted by me: Sinus tachycardia 100 bpm,, normal axis, no STEMI, nondiagnostic. Consider acute life-threatening intracranial traumatic hemorrhage versus CVA versus effects of long Covid. Plan to obtain CT of the head. Patient has no tenderness but is altered as unknown mechanism with fall. Consider C-spine fracture will obtain CT of the cervical spine. Given fall and unreliable history I will also obtain chest x-ray and pelvis x-ray as part of the trauma work-up. 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 Pelvis x-ray interpreted by radiology: There is no evidence of acute pelvic nor hip fracture. No diastasis of the SI joints and symphysis pubis. Mild degenerative changes in the hips. Bone density is age-appropriate. CT of the head and cervical spine interpreted by radiology: No acute intracranial findings on this noninfused CT scan of the brain. No evidence of cervical spine fracture, malalignment, nor acute compromise of the cervical spinal canal. Multilevel degenerative changes in the cervical spine noted. Labs reviewed and patient does have mild elevation of CK. This will need to be trended. She also has anemia noted and this is new compared to recent prior labs. Patient has a potassium of 2.9. I will give IV potassium replacement 20 mEq. Plan for hospitalization for generalized weakness, inability to ambulate, and syncope. I called and spoke with hospitalist conference services coordinator, Dr. Guzmán discussed ED presentation and course, he will admit the patient. Son provided additional history that patient has had progressively worsening swelling of LEs bilaterally. Legs are swollen. Will send BNP. BNP pending at time of admission. Lab Data Lab results reviewed: Yes I reviewed the patient's lab results. HPI General Mode of arrival: ambulatory. Date/Time Provider Initiated Documentation: 11/25/20 11:45. Limitations to Documentation: no limitations. Information obtained by: patient and family (son). HPI Narrative: 85-year-old female presents with altered mental status. Patient apparently was speaking last night with her sister who noted some slurred speech. Patient notes she went to bed last night and does not recall waking up this morning. Her son notes that he attempted to call her today and there was no answer. He then went to check on her and found her on the floor in a confused state. Patient does not recall episodes leading up to her being on the floor. Patient denies pain. History limited secondary to altered mental status. I did call and speak with the patient's son who noted that since she had Covid in July she has not been her normal active self and is concerned that she has long Covid. Her activity level is significantly declined. Related Data Home Medications Medication Instructions Recorded Confirmed ascorbic acid (vitamin C) [Vitamin 500 mg PO DAILY 09/01/16 11/25/20 C] cholecalciferol (vitamin D3) 1,000 unit PO DAILY 09/01/16 11/25/20 [Vitamin D3] magnesium amino acid chelate 133 mg PO DAILY 09/01/16 11/25/20 ibuprofen [Advil] 400 mg PO PRN PRN 12/22/16 11/25/20 blood-glucose meter [FreeStyle #1 kit 07/05/17 11/25/20 Lite Meter] ibuprofen 600 mg tablet 600 mg PO TID PRN #90 tab 09/09/19 11/25/20 anastrozole 1 mg tablet 1 mg PO DAILY 03/31/20 11/25/20 atorvastatin 40 mg tablet 40 mg PO DAILY #90 tab-cap 03/31/20 11/25/20 cholestyramine-aspartame 4 gram 1 pwd PO DAILY g 03/31/20 11/25/20 oral powder ursodiol 300 mg capsule 300 mg PO TID cap 03/31/20 11/25/20 zinc sulfate 50 mg zinc (220 mg) 5 mg PO DAILY 03/31/20 11/25/20 capsule FreeStyle Lancets 28 gauge #100 ea NS 06/15/20 11/25/20 albuterol sulfate 90 mcg/actuation 1 puff INHALATION Q6H PRN #3 puff 06/15/20 11/25/20 aerosol inhaler blood sugar diagnostic #100 strip 06/15/20 11/25/20 lisinopril 20 1 tab PO DAILY #90 tab-cap 06/15/20 11/25/20 mg-hydrochlorothiazide 12.5 mg tablet metformin 500 mg tablet 500 mg PO BID #180 tab-cap 06/15/20 11/25/20 furosemide 20 mg tablet 20 mg PO DAILY #30 tab 10/11/20 11/25/20 Previous Rx's Medication Instructions Recorded blood-glucose meter [FreeStyle #1 kit 07/05/17 Lite Meter] ibuprofen 600 mg tablet 600 mg PO TID PRN #90 tab 09/09/19 atorvastatin 40 mg tablet 40 mg PO DAILY #90 tab-cap 03/31/20 FreeStyle Lancets 28 gauge #100 ea NS 06/15/20 albuterol sulfate 90 mcg/actuation 1 puff INHALATION Q6H PRN #3 puff 06/15/20 aerosol inhaler blood sugar diagnostic #100 strip 06/15/20 lisinopril 20 1 tab PO DAILY #90 tab-cap 06/15/20 mg-hydrochlorothiazide 12.5 mg tablet metformin 500 mg tablet 500 mg PO BID #180 tab-cap 06/15/20 furosemide 20 mg tablet 20 mg PO DAILY #30 tab 10/11/20 Allergies Allergy/AdvReac Type Severity Reaction Status Date / Time bee venom protein (honey bee) Allergy Severe Anaphylaxsi Verified 11/25/20 11:37 s hornet venom Allergy Severe Anaphylaxsi Verified 11/25/20 11:37 s oxycodone Allergy Intermediate Severe Verified 11/25/20 11:37 itching red yeast rice Allergy rash Uncoded 11/25/20 11:37 General Stated Complaint: CVA/TIA MOISES: 2 Review of Systems All systems reviewed & are unremarkable except as noted in HPI and below Constitutional Constitutional: Denies fever(s) and Denies headache(s) ENT Ears, Nose, Mouth, and Throat: Denies headache(s) Cardiovascular Cardiovascular: Denies chest pain Gastrointestinal Gastrointestinal: Denies abdominal pain and Reports diarrhea (For sometime at least weeks) Neurologic Neurologic: Denies headache(s) [facility] Medical History Actinic keratosis Asthma Benign hypertension Carcinoma of left breast Invasive intraductal Chronic pruritus Cortical age-related cataract of both eyes Cortical age-related cataract of both eyes (12/19/16) Diabetes mellitus Diverticulosis Esophageal ulcer Essential hypertension Gastric ulcer Grade II internal hemorrhoids Hypercholesterolemia Hypermetropia Intention tremor Obesity Osteoarthritis Primary biliary cholangitis Primary osteoarthritis of left knee Synovial cyst of left popliteal space Torn rotator cuff (06/23/13) Repair rotator cuff by Dr. Kaden Escobedo 06-23-2013 Surgical History Biopsy of breast (04/18/17) benign breast tissue with cyst wall Colonoscopy - IV Sedation 10 + years ago- normal Colonoscopy - MAC (12/31/17) EGD - MAC (12/31/17) ganglion, left ankle Nuclear senile cataract Oseotomy (10/06/98) TONNY BILATERAL FEET Rotator Cuff Repair (06/23/13) Right with distal clavical excision Family History Mother , 88 Diabetes Essential hypertension Heart disease Hyperlipidemia Father , 63 Neoplasm BLADDER Sister Hyperlipidemia Breast cancer Brother Diabetes Essential hypertension Hyperlipidemia Neoplasm PROSTATE Prostate cancer Maternal Grandfather No problems noted. Paternal Grandfather No problems noted. Maternal Grandmother Diabetes Paternal Grandmother No problems noted. 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 Pets and animals: Yes Pets and animals: dog(s) Sexually active: No Do you think of yourself as: straight/heterosexual Current gender identity: female What is your relationship status?: How often do you talk on the phone with friends or family?: three or more times per week How often do you get together with friends or relatives?: twice per week How often do you attend evangelical or christianity services?: decline to answer Do you belong to any clubs or organized social groups?: no Panel score (0-1 are the most socially isolated patients): 1 What type of physical activity do you participate in: none Nhung/Mandaeism: No preference Special nhung needs: No Seatbelt use: always Drive intox or ride w/intox local company hazmat driver: No Exam Const General: cooperative and no acute distress HENMT Head: normocephalic, no Varma's sign, no lacerations, no raccoon eyes and no scalp lesions General nose exam: epistaxis (Dried blood in nares, no active bleeding) Mouth: moist mucous membranes Eyes Conjunctivae: normal conjunctivae Sclera: normal sclerae EOM: EOM intact bilaterally Neck Neck: trachea midline, supple and nontender Resp Auscultation: clear to auscultation bilaterally, no rales, no rhonchi and no wheezes Cardio Jugular venous pressure: no JVD Rate: regular rate and not tachycardic Rhythm: regular rhythm Heart Sounds: murmur GI Palpation: soft, not firm, no guarding, no masses, not rigid and nontender Rectal Exam - female: normal sphincter tone and heme negative stool Other: performed with female nurse sludge control attendant present Skin General skin exam: no rashes or lesions noted Neuro General: patient alert, patient awake, oriented Patient Orientation: Person, Place and Confused and tone normal Cognition: abnormal cognition Speech: other (Mild slurred speech) Motor: other (4/5 strength bilateral lower extremities) Sensory Exam: no sensory deficits noted Extrem General: no edema Psych Appearance: grossly normal Mental Status: mental status grossly abnormal Course Vital Signs Vital signs: Vital Signs Temperature 36.6 C 11/25/20 11:26 Pulse 102 H 11/25/20 11:26 Respiratory Rate 15 11/25/20 11:26 Blood Pressure 125/70 11/25/20 11:26 Pulse Oximetry 96 11/25/20 11:26 Temperature 36.6 C 11/25/20 11:26 Temperature Source Temporal Artery Scan 11/25/20 11:26 Pulse 99 H 11/25/20 14:01 Pulse 100 H 11/25/20 14:01 Respiratory Rate 16 11/25/20 14:01 Respiratory Effort Non-Labored 11/25/20 12:27 Respiratory Depth Normal 11/25/20 12:27 Respiratory Pattern Normal 11/25/20 12:27 Blood Pressure 98/39 L 11/25/20 14:01 Blood Pressure Mean 55 11/25/20 14:01 Blood Pressure Position Supine 11/25/20 11:26 Pulse Oximetry 98 11/25/20 14:01 Oxygen Delivery Method Room Air 11/25/20 11:26 Oxygen Flow Rate 0 11/25/20 11:26 Lab/Test Results Lab/Test Results: Laboratory Tests Range/Units 11/25/20 11/25/20 11/25/20 12:00 12:00 12:00 WBC (4.4-10.8) 10^3/uL 9.25 RBC (3.93-5.22) 10^6/uL 3.74 L Hgb (11.2-15.7) g/dL 10.7 L Hct (36.0-46.0) % 30.8 L MCV (80-95) fL 82.4 MCH (27.0-33.0) pg 28.6 MCHC (32.0-36.0) % 34.7 RDW (11.7-14.6) % 15.5 H Plt Count (130-400) 10^3/uL 187 MPV (8.0-11.0) fL 11.8 H Immature Gran % 0.3 Neutrophils % 72.5 Lymphocytes % 17.3 Monocytes % 8.9 Eosinophils % 0.4 Basophils % 0.6 Nucleated RBC % % 0 Absolute Neutrophils (1.2-6.7) 10^3/uL 6.70 Absolute Lymphocytes (1.2-3.4) 10^3/uL 1.60 Absolute Monocytes (0.1-0.8) 10^3/uL 0.82 H Absolute Eosinophils (0.0-0.7) 10^3/uL 0.04 Absolute Basophils (0.0-0.2) 10^3/uL 0.06 Sodium (136-145) mmol/L 140 Potassium (3.5-5.1) mmol/L 2.9 L Chloride (98-107) mmol/L 102 Carbon Dioxide (21.0-32.0) mmol/L 25.7 Anion Gap (3-11) mmol/L 12.3 H BUN (7-18) mg/dL 30 H Creatinine (0.55-1.02) mg/dL 1.1 H Estimated GFR/1.73 m2 (mL/min/1.73m2) 47.43 Glucose (74-106) mg/dL 101 Calcium (8.5-10.1) mg/dL 8.5 Magnesium (1.8-2.4) mg/dL 1.9 Total Bilirubin (0.2-1.0) mg/dL 1.6 H AST (15-37) U/L 99 H ALT (14-59) U/L 47 Alkaline Phosphatase (46-116) U/L 203 H Creatine Kinase (26-192) U/L 194 H Troponin I (<0.06) ng/mL < 0.05 Total Protein (6.4-8.2) g/dL 6.4 Albumin (3.4-5.0) g/dL 2.0 L Urine Color (Yellow) Urine Clarity (Clear) Urine pH (5-8) Ur Specific [place] (1.005-1.025) Urine Protein (Negative) mg/dL Urine Ketones (Negative) mg/dL Urine Blood (Negative) Urine Nitrite (Negative) Urine Bilirubin (Negative) Urine Urobilinogen (Up TO 0.2) EU/dL Ur Leukocyte Esterase (Negative) Urine RBC (0-2) HPF Urine WBC (0-5) HPF Ur Epithelial Cells (Negative) HPF Urine Crystals (Negative) HPF Urine Bacteria (Negative) HPF Urine Casts (Negative) LPF Urine Mucus (Negative) Urine Other (Negative) Ur Culture Indicated? Urine Glucose (Negative) mg/dL Range/Units 11/25/20 12:15 WBC (4.4-10.8) 10^3/uL RBC (3.93-5.22) 10^6/uL Hgb (11.2-15.7) g/dL Hct (36.0-46.0) % MCV (80-95) fL MCH (27.0-33.0) pg MCHC (32.0-36.0) % RDW (11.7-14.6) % Plt Count (130-400) 10^3/uL MPV (8.0-11.0) fL Immature Gran % Neutrophils % Lymphocytes % Monocytes % Eosinophils % Basophils % Nucleated RBC % % Absolute Neutrophils (1.2-6.7) 10^3/uL Absolute Lymphocytes (1.2-3.4) 10^3/uL Absolute Monocytes (0.1-0.8) 10^3/uL Absolute Eosinophils (0.0-0.7) 10^3/uL Absolute Basophils (0.0-0.2) 10^3/uL Sodium (136-145) mmol/L Potassium (3.5-5.1) mmol/L Chloride (98-107) mmol/L Carbon Dioxide (21.0-32.0) mmol/L Anion Gap (3-11) mmol/L BUN (7-18) mg/dL Creatinine (0.55-1.02) mg/dL Estimated GFR/1.73 m2 (mL/min/1.73m2) Glucose (74-106) mg/dL Calcium (8.5-10.1) mg/dL Magnesium (1.8-2.4) mg/dL Total Bilirubin (0.2-1.0) mg/dL AST (15-37) U/L ALT (14-59) U/L Alkaline Phosphatase (46-116) U/L Creatine Kinase (26-192) U/L Troponin I (<0.06) ng/mL Total Protein (6.4-8.2) g/dL Albumin (3.4-5.0) g/dL Urine Color (Yellow) Yellow Urine Clarity (Clear) Clear Urine pH (5-8) 6.5 Ur Specific [place] (1.005-1.025) 1.015 Urine Protein (Negative) mg/dL Negative Urine Ketones (Negative) mg/dL Trace H Urine Blood (Negative) Trace-intact H Urine Nitrite (Negative) Negative Urine Bilirubin (Negative) Negative Urine Urobilinogen (Up TO 0.2) EU/dL 1.0 H Ur Leukocyte Esterase (Negative) Negative Urine RBC (0-2) HPF 0-2 Urine WBC (0-5) HPF Negative Ur Epithelial Cells (Negative) HPF Negative Urine Crystals (Negative) HPF Negative Urine Bacteria (Negative) HPF Rare Urine Casts (Negative) LPF Negative Urine Mucus (Negative) Negative Urine Other (Negative) Negative Ur Culture Indicated? No Urine Glucose (Negative) mg/dL Negative
[2020-11-25 15:18] LABS: Troponin I 0.05 ng/mL (<0.06)
[2020-11-25] MEDS: Acetaminophen 325 MG TAB 650 MG PO (15:40)
[2020-11-25 16:34] LABS: Source Nasal/Nares
[2020-11-25 16:53] LABS: NT-proBNP 255 pg/mL (<300)
--- NOTE | 2020-11-25 17:43 | NUR.NOTE ---
ate 100% of dinner.Nursing Note:
[2020-11-25] MEDS: Ursodiol 300 MG CAP PO (20:08)
--- NOTE | 2020-11-25 20:27 | W.PM.HP.N ---
Date of service: 11/25/20 Time of Service: 20:27 Assessment and Plan Assessment and plan (1) Hypokalemia: Status: Acute Assessment and plan: Given IV K+ in the ED K+ in IV NS at 80ml/hr. Oral K+ 20meq x 1. Monitor (2) Bilateral lower extremity edema: Status: Acute Assessment and plan: Holding her home lasix currently. Encourage elevation of BLEs above heart level. She declines compression stockings. (3) Primary biliary cholangitis: Status: Acute Assessment and plan: Cont Ursodiol. Controls her pruritus. (4) Carcinoma of left breast: Status: Acute Assessment and plan: Cont anastrozole Qualifiers: Breast location: unspecified site of breast Estrogen receptor status: positive Patient sex: female Qualified Code(s): C50.912 - Malignant neoplasm of unspecified site of left female breast; Z17.0 - Estrogen receptor positive status [ER+] (5) Hypercholesterolemia: Status: Chronic Assessment and plan: Cont atorvastatin. (6) Essential hypertension: Status: Chronic Assessment and plan: Lisinopril 20mg daily. Holding currently. (7) Diabetes mellitus: Status: Chronic Assessment and plan: Hold metformin. Diabetic diet. ACHS fingerstick glucose monitoring. (8) Acute confusional state: Status: Acute Assessment and plan: Unclear etiology. Telemetry for monitoring of arrhythmias. Syncope? Seizure? EEG ordered. Orthostatic hypotension? Presented with low BPs. Orthostatic BP in AM. History of Present Illness History of Present Illness Chief Complaint: altered mental status Narrative: This is an 85-year-old female with a h/o Covid in Jul 2020/not hospitalized, primary biliary cholangitis, breast CA, HLD, HTN, DM, asthma. Patient apparently was speaking the night before admission with her sister who noted some slurred speech. Patient noted she went to bed last night and does not recall waking up this morning. Her son notes that he attempted to call her and there was no answer. He then went to check on her and found her on the floor in the kitchen in a confused state. Patient does not recall episodes leading up to her being on the floor. She denied pain. ED physician did call and speak with the patient's son who noted that since she had Covid in July she has not been her normal active self and is concerned that she has long Covid. Her activity level had significantly declined. When she was e.valuated once admitted to the med-surg unit she was more alert, oriented to person, place, month. She states this had happened to her previously and after a day or two she was back to her normal self. She endorsed having mowed her lawn recently but she did have to rest periodically. She denied F/C, CP/palpitations. No SOA/cough Her presenting HR was in the 90's to 100. SBP in the 80's to 90's but then improved to the low 100's. WBC count normal. Hgb 10.7. Hgb 12.5 in Mar 2020. K 2.9. BUN 30. Cr 1.1 (baseline 0.6-0.7). Bilirubin 1.6 (1.1 - 1.2 baseline since fall). Troponin neg.BNP normal. UA neg. CT head a C spine negative for any acute findings. XR of pelvis and chest negative for acute findings. [facility] Medical History Actinic keratosis Asthma Benign hypertension Carcinoma of left breast Invasive intraductal Chronic pruritus Cortical age-related cataract of both eyes Cortical age-related cataract of both eyes (12/19/16) Diabetes mellitus Diverticulosis Esophageal ulcer Essential hypertension Gastric ulcer Grade II internal hemorrhoids Hypercholesterolemia Hypermetropia Intention tremor Obesity Osteoarthritis Primary biliary cholangitis Primary osteoarthritis of left knee Synovial cyst of left popliteal space Torn rotator cuff (06/23/13) Repair rotator cuff by Dr. Kaden Escobedo 06-23-2013 Surgical History Biopsy of breast (04/18/17) benign breast tissue with cyst wall Colonoscopy - IV Sedation 10 + years ago- normal Colonoscopy - MAC (12/31/17) EGD - MAC (12/31/17) ganglion, left ankle Nuclear senile cataract Oseotomy (10/06/98) TONNY BILATERAL FEET Rotator Cuff Repair (06/23/13) Right with distal clavical excision Family History Mother , 88 Diabetes Essential hypertension Heart disease Hyperlipidemia Father , 63 Neoplasm BLADDER Sister Hyperlipidemia Breast cancer Brother Diabetes Essential hypertension Hyperlipidemia Neoplasm PROSTATE Prostate cancer Maternal Grandfather No problems noted. Paternal Grandfather No problems noted. Maternal Grandmother Diabetes Paternal Grandmother No problems noted. 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 Pets and animals: Yes Pets and animals: dog(s) Sexually active: No Do you think of yourself as: straight/heterosexual Current gender identity: female What is your relationship status?: How often do you talk on the phone with friends or family?: three or more times per week How often do you get together with friends or relatives?: twice per week How often do you attend denominational or baptist services?: decline to answer Do you belong to any clubs or organized social groups?: no Panel score (0-1 are the most socially isolated patients): 1 What type of physical activity do you participate in: none Nhung/Worship: No preference Special nhung needs: No Seatbelt use: always Drive intox or ride w/intox crude oil driver: No Meds Allergies and Home Medications Allergies Allergy/AdvReac Type Severity Reaction Status Date / Time bee venom protein (honey bee) Allergy Severe Anaphylaxsi Verified 11/25/20 11:37 s hornet venom Allergy Severe Anaphylaxsi Verified 11/25/20 11:37 s oxycodone Allergy Intermediate Severe Verified 11/25/20 11:37 itching red yeast rice Allergy rash Uncoded 11/25/20 11:37 Home Medications Medication Instructions Recorded Confirmed Type ascorbic acid (vitamin C) [Vitamin 500 mg PO DAILY 09/01/16 11/25/20 History C] cholecalciferol (vitamin D3) 1,000 unit PO DAILY 09/01/16 11/25/20 History [Vitamin D3] magnesium amino acid chelate 133 mg PO DAILY 09/01/16 11/25/20 History ibuprofen [Advil] 400 mg PO PRN PRN 12/22/16 11/25/20 History blood-glucose meter [FreeStyle #1 kit 07/05/17 11/25/20 Rx Lite Meter] ibuprofen 600 mg tablet 600 mg PO TID PRN #90 tab 09/09/19 11/25/20 Rx anastrozole 1 mg tablet 1 mg PO DAILY 03/31/20 11/25/20 History atorvastatin 40 mg tablet 40 mg PO DAILY #90 tab-cap 03/31/20 11/25/20 Rx cholestyramine-aspartame 4 gram 1 pwd PO DAILY g 03/31/20 11/25/20 History oral powder ursodiol 300 mg capsule 300 mg PO TID cap 03/31/20 11/25/20 History zinc sulfate 50 mg zinc (220 mg) 5 mg PO DAILY 03/31/20 11/25/20 History capsule FreeStyle Lancets 28 gauge #100 ea NS 06/15/20 11/25/20 Rx albuterol sulfate 90 mcg/actuation 1 puff INHALATION Q6H PRN #3 puff 06/15/20 11/25/20 Rx aerosol inhaler blood sugar diagnostic #100 strip 06/15/20 11/25/20 Rx lisinopril 20 1 tab PO DAILY #90 tab-cap 06/15/20 11/25/20 Rx mg-hydrochlorothiazide 12.5 mg tablet metformin 500 mg tablet 500 mg PO BID #180 tab-cap 06/15/20 11/25/20 Rx furosemide 20 mg tablet 20 mg PO DAILY #30 tab 10/11/20 11/25/20 Rx Exam Const General: cooperative, no acute distress and frail appearing Nutritional Appearance: overweight Orientation: alert, oriented to person and oriented to place [facility] Head: normocephalic and atraumatic Eyes Sclera: sclerae normal Pupils: PERRL Resp Effort & Inspection: normal respiratory effort Auscultation: clear to auscultation bilaterally Cardio Rate: regular rate Rhythm: regular rhythm Heart Sounds: S1 normal and S2 normal GI Palpation: soft and nontender Neuro General: no focal motor deficits Cranial Nerves: facial strength normal and tongue midline Cognition: normal cognition Speech: speech normal Extrem General: no calf tenderness and edema Laterality: bilateral (1+) Psych Speech and Movement: speech and movement normal Affect: normal affect Results Labs Result diagrams: 11/25/20 12:00 11/25/20 12:00 Labs: Laboratory Results - last 24 hr 06/11/25/20 11/25/20 12:00 12:00 12:00 WBC 9.25 RBC 3.74 L Hgb 10.7 L Hct 30.8 L MCV 82.4 MCH 28.6 MCHC 34.7 RDW 15.5 H Plt Count 187 MPV 11.8 H Immature Gran % 0.3 Neutrophils % 72.5 Lymphocytes % 17.3 Monocytes % 8.9 Eosinophils % 0.4 Basophils % 0.6 Nucleated RBC % 0 Absolute Neutrophils 6.70 Absolute Lymphocytes 1.60 Absolute Monocytes 0.82 H Absolute Eosinophils 0.04 Absolute Basophils 0.06 Sodium 140 Potassium 2.9 L Chloride 102 Carbon Dioxide 25.7 Anion Gap 12.3 H BUN 30 H Creatinine 1.1 H Estimated GFR/1.73 m2 47.43 Glucose 101 Calcium 8.5 Magnesium 1.9 Total Bilirubin 1.6 H AST 99 H ALT 47 Alkaline Phosphatase 203 H Creatine Kinase 194 H Troponin I < 0.05 NT-Pro-B Natriuret Pep Total Protein 6.4 Albumin 2.0 L Urine Color Urine Clarity Urine pH Ur Specific [place] Urine Protein Urine Ketones Urine Blood Urine Nitrite Urine Bilirubin Urine Urobilinogen Ur Leukocyte Esterase Urine RBC Urine WBC Ur Epithelial Cells Urine Crystals Urine Bacteria Urine Casts Urine Mucus Urine Other Ur Culture Indicated? Urine Glucose COVID-19 Source 11/25/20 11/25/20 11/25/20 12:15 14:55 14:55 WBC RBC Hgb Hct MCV MCH MCHC RDW Plt Count MPV Immature Gran % Neutrophils % Lymphocytes % Monocytes % Eosinophils % Basophils % Nucleated RBC % Absolute Neutrophils Absolute Lymphocytes Absolute Monocytes Absolute Eosinophils Absolute Basophils Sodium Potassium Chloride Carbon Dioxide Anion Gap BUN Creatinine Estimated GFR/1.73 m2 Glucose Calcium Magnesium Total Bilirubin AST ALT Alkaline Phosphatase Creatine Kinase Troponin I 0.05 NT-Pro-B Natriuret Pep 255 Total Protein Albumin Urine Color Yellow Urine Clarity Clear Urine pH 6.5 Ur Specific [place] 1.015 Urine Protein Negative Urine Ketones Trace H Urine Blood Trace-intact H Urine Nitrite Negative Urine Bilirubin Negative Urine Urobilinogen 1.0 H Ur Leukocyte Esterase Negative Urine RBC 0-2 Urine WBC Negative Ur Epithelial Cells Negative Urine Crystals Negative Urine Bacteria Rare Urine Casts Negative Urine Mucus Negative Urine Other Negative Ur Culture Indicated? No Urine Glucose Negative COVID-19 Source 11/25/20 16:25 WBC RBC Hgb Hct MCV MCH MCHC RDW Plt Count MPV Immature Gran % Neutrophils % Lymphocytes % Monocytes % Eosinophils % Basophils % Nucleated RBC % Absolute Neutrophils Absolute Lymphocytes Absolute Monocytes Absolute Eosinophils Absolute Basophils Sodium Potassium Chloride Carbon Dioxide Anion Gap BUN Creatinine Estimated GFR/1.73 m2 Glucose Calcium Magnesium Total Bilirubin AST ALT Alkaline Phosphatase Creatine Kinase Troponin I NT-Pro-B Natriuret Pep Total Protein Albumin Urine Color Urine Clarity Urine pH Ur Specific [place] Urine Protein Urine Ketones Urine Blood Urine Nitrite Urine Bilirubin Urine Urobilinogen Ur Leukocyte Esterase Urine RBC Urine WBC Ur Epithelial Cells Urine Crystals Urine Bacteria Urine Casts Urine Mucus Urine Other Ur Culture Indicated? Urine Glucose COVID-19 Source Nasal/nares Last Vital Signs Temp 36.3 C L 11/25/20 19:59 Pulse 95 H 11/25/20 19:59 Resp 16 11/25/20 19:59 BP 109/67 11/25/20 19:59 Pulse Ox 100 11/25/20 19:59
[2020-11-25] MEDS: Potassium Chloride 20 MEQ TABCR PO (21:00)
[2020-11-25] MEDS: Normal Saline Flush 10 ML SYR IVP (21:01)
[2020-11-25] MEDS: POTASSIUM CHLORIDE/0.9% NACL 1,000 ML 80 MEQ IV (21:01)
[2020-11-25 23:54] LABS: COVID-19 PCR Negative (Negative)
[2020-11-26] VITALS (19 sets, daily range): BP systolic 76–124; BP diastolic 34–80; PULSE 80–96; RESP 12–21; TEMP 36–37; O2SAT 92–97
--- NOTE | 2020-11-26 | DI.MRI_ITS ---
Exam(s) MR BRAIN WO EXAM: MR BRAIN WO CLINICAL HISTORY: altered mental status TECHNIQUE: Multiplanar multisequence MRI of the brain was performed. COMPARISON: CT CT HEAD CERVICAL SPINE WO from 11/25/2020 FINDINGS: The examination is limited due to patient motion artifact. VENTRICLES AND EXTRA AXIAL SPACES: Normal in size and morphology for the patient's age. MIDLINE SHIFT: None. CEREBRAL PARENCHYMA: No focus of restricted diffusion to suggest acute infarct. No space-occupying le francie identified. There are scattered areas of increased signal intensity in the white matter consiste nt with microvascular ischemic change. HEMORRHAGE: None. BRAINSTEM/CEREBELLUM: Normal. CALVARIUM: Normal. VISUALIZED PARANASAL SINUSES/MASTOIDS:There is a small fluid level in the left sphenoid sinus. The r emaining visualized paranasal sinuses are clear. [place]: Normal flow void. PIT[place]ARY [place]: Unremarkable. OTHER FINDINGS: None. IMPRESSION: No evidence of an acute infarct. 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 DATA REPOSITORY:
--- NOTE | 2020-11-26 06:39 | NUR.NOTE ---
Nursing Note: At around 6:00 patient woke up and set off bed alarm. Patient appeared to be confused, when asked if she had to go to the bathroom she said yes. Upon standing patient was very shaky and started to wander around the room. She was unsteady on her feet and almost fell a couple of times. Patient was A/Ox3 with periods of confusion. For example, trying to sit on the toilet with her underwear on. Neuro assessment appears to be fine at that time. Vital signs stable. Will continue to monitor.
[2020-11-26 07:01] LABS: Abs Immature Grans 0.03 10^3/uL (0.0-0.06); Absolute Basophil Count 0.06 10^3/uL (0.0-0.2); Absolute Eosinophil Count 0.36 10^3/uL (0.0-0.7); Absolute Lymphocyte Count 2.92 10^3/uL (1.2-3.4); Absolute Monocyte Count 0.83 10^3/uL (0.1-0.8); Basophils % 0.7; Eosinophils % 4.2; Immature Grans % 0.4; Lymphocytes % 34.4; MCH 29.1 pg (27.0-33.0); MCHC 35.7 % (32.0-36.0); MCV 81.4 fL (80-95); MPV 12.1 fL (8.0-11.0); Monocytes % 9.8; Neutrophils % 50.5; Nucleated RBC 0 %; Platelet Count 180 10^3/uL (130-400); RBC 3.44 10^6/uL (3.93-5.22); RDW 15.4 % (11.7-14.6); RDW-SD 44.1 fL
[2020-11-26 07:38] LABS: ALT 45 U/L (14-59); AST 99 U/L (15-37); Albumin 1.9 g/dL (3.4-5.0); Alkaline Phosphatase 186 U/L (46-116); Anion Gap 8.4 mmol/L (3-11); BUN 28 mg/dL (7-18); Bilirubin, Total 1.5 mg/dL (0.2-1.0); CO2 25.6 mmol/L (21.0-32.0); Calcium 8.5 mg/dL (8.5-10.1); Chloride 106 mmol/L (98-107); Estimated GFR 52.95 (mL/min/1.73m2); Glucose 88 mg/dL (74-106); Potassium 3.5 mmol/L (3.5-5.1); Sodium 140 mmol/L (136-145); Total Protein 6.1 g/dL (6.4-8.2)
[2020-11-26] MEDS: Anastrozole 1 MG TAB PO (08:47)
[2020-11-26] MEDS: Ursodiol 300 MG CAP PO ×2 (08:47→14:39)
[2020-11-26] MEDS: Atorvastatin 40 MG TAB PO (08:48)
[2020-11-26] MEDS: Normal Saline Flush 10 ML SYR IVP ×4 (08:48→22:00)
--- NOTE | 2020-11-26 09:07 | IN_ITS ---
Date of service: 11/26/20 Time of Service: 09:07 PT Notes Visit Reasons: acute confusional state Physical Therapy Inpatient Initial Evaluation Date: 11/26/2020 Referring Doctor: Abel Guzmán MD PT Orders: PT CONSULT: Eval/treat Precautions: Fall. Standard. Activity as tolerated. Patient Profile/Admitting Diagnosis: Elina is an 85-year-old female who presented to the ED on 11/25/2020 with altered mental status and recent slurring of speech accompanied by bilateral lower extremity weakness. She was found on the floor by family members with evidence of head trauma due to dried blood found in her naris. Patient is diagnosed with hypokalemia, bilateral lower extremity edema, primary biliary cholangitis, hypercholesterolemia, and acute confusional state. COVID-19 positive back in July 2020. PMHX: Medical History Actinic keratosis Asthma Benign hypertension Carcinoma of left breast Invasive intraductal Chronic pruritus Cortical age-related cataract of both eyes Cortical age-related cataract of both eyes (12/19/16) Diabetes mellitus Diverticulosis Esophageal ulcer Essential hypertension Gastric ulcer Grade II internal hemorrhoids Hypercholesterolemia Hypermetropia Intention tremor Obesity Osteoarthritis Primary biliary cholangitis Primary osteoarthritis of left knee Synovial cyst of left popliteal space Torn rotator cuff (06/23/13) Repair rotator cuff by Dr. Kaden Escobedo 06-23-2013 Surgical History Biopsy of breast (04/18/17) benign breast tissue with cyst wall Colonoscopy - IV Sedation 10 + years ago- normal Colonoscopy - MAC (12/31/17) EGD - MAC (12/31/17) ganglion, left ankle Nuclear senile cataract Oseotomy (10/06/98) TONNY BILATERAL FEET Rotator Cuff Repair (06/23/13) Right with distal clavical excision Social History/Home Situation: Lives alone in a private home with a flight of steps to get into the house with rails on both sides. She states that she has an alternate entrance throughout with only 2 steps. Equipment Owned/DME: Front wheeled walker Subjective: Agreeable to PT consult. Denies pain, chest pain, dizziness, and headache throughout session. Indicates that she has live alone for a long time and has managed all her affairs on her own. She states that she just mowed her lawn recently prior to hospital admission. Son and daughter live close by and check in on her every day. Objective: General Observation: Seated on bedside chair. IV in right UE. Grade 1 pitting edema in bilateral lower extremities with the right more affected than the left, beginning fibrosis noted in bilateral legs with eating redness seen in bilateral distal legs and feet. Telemetry monitoring in place. Mental Status: Alert and oriented as to person, place, time, and purpose. Delayed reaction/execution time for commands given. Pain: 0/10 ROM: Right Upper Extremity: Shoulder Flexion WFL. Shoulder abduction WFL. Shoulder ER/IR WFL. Elbow flexion WFL. Forearm pronation/supination WFL. Wrist flexion WFL. Opening and closing of hand WFL. Left Upper Extremity: Shoulder Flexion WFL. Shoulder abduction WFL. Shoulder ER/IR WFL. Elbow flexion WFL. Forearm pronation/supination WFL. Wrist flexion WFL. Opening and closing of hand WFL. Right Lower Extremity: Hip flexion lacks the last 25% of available range. Hip abduction lacks the last 25% of available range. Hip ER/IR lacks the last 25% of available Red. Knee flexion lacks the last 25% of available range. Knee extension. Ankle dorsiflexion/eversion WFL. Ankle plantarflexion/inversion WFL. Left Lower Extremity: Hip flexion lacks the last 25% of available range. Hip abduction lacks the last 25% of available range. Hip ER/IR lacks the last 25% of available Red. Knee flexion lacks the last 25% of available range. Knee extension. Ankle dorsiflexion/eversion WFL. Ankle plantarflexion/inversion WFL. Strength: Right Upper Extremity: Shoulder flexors 4/5. Shoulder abductors 4/5. Shoulder ER 4/5. Shoulder IR 4/5. Forearm pronators 4/5. Forearm supinators 4/5. Elbow flexors 4/5. Elbow extensors 4/5. Medical Claims Examiner strong. Left Upper Extremity: Shoulder flexors 4/5. Shoulder abductors 4/5. Shoulder ER 4/5. Shoulder IR 4/5. Forearm pronators 4/5. Forearm supinators 4/5. Elbow flexors 4/5. Elbow extensors 4/5. Medical Claims Examiner strong. Right Lower Extremity: Hip flexors 3-/5. Hip abductors 3-/5. Hip external rotat ors 3-/5. Hip internal rotators 3-/5. Knee flexors 3-/5. Knee extensors 4-/5. Ankle dorsiflexors/evertors 4/5. Ankle plantarflexors/invertors 4/5. Left Lower Extremity: Hip flexors 3-/5. Hip abductors 3-/5. Hip external rotators 3-/5. Hip internal rotators 3-/5. Knee flexors 3-/5. Knee extensors 4- /5. Ankle dorsiflexors/evertors 4/5. Ankle plantarflexors/invertors 4/5. Bed Mobility/Transfers: Sit to stand standby assist Stand to sit standby assist Bed to bedside commode standby assist Bedside commode to bed standby assist Bed to chair standby assist Chair to bed standby assist Gait: Distance of 300 feet requiring standby assist with wide base of support and increased out toeing in bilateral lower extremities. Jie decreased. Step height decreased. Step length decreased. Reported fatigue after activity. Balance: Static Sitting: Normal Dynamic Sitting: Normal Static Standing: Good Dynamic Standing: Fair Special Tests: Mobility Limitations Standardized Measure [facility] AM-PAC 6 clicks Basic Mobility Inpatient Short Form: Raw Score: 22 CMS Score: 21% deficit Informed Consent/Education: Patient was instructed in purpose of PT consult and plan of care. Agreeable to proceed with established PT POC to achieve personal goals. Assessment: Delayed reaction time and execution time after single-step commands are given. Responses are approriate. Elina requires the use of a front-wheeled walker to minimize onset of fatigue. Patient will benefit from home health PT services in order to progress mobility level using least restrictive assistive ambulatory device, assess home safety, identify additional equipment needs, and establish a functional maintenance program that will increase ability of patient to remain at home. Patient presents with clinical signs and symptoms consistent with current/admitting diagnoses that have resulted to mobility limitations, gait instability, generalized weakness, and impairment of motor control as demonstrated by the following impairment level findings: 1. Decreased strength to B UE/LE major muscle groups 2. Impaired standing balance 3. Impaired activity tolerance 4. Limitation of joint range of motion in B hips Impairments are contributing to the following functional limitations: 1.. Inability to safely ambulate without assistive device 2. Increased completion time for mobility ADL performance 3. Increased fall risk 4. Inability to negotiate steps alone safely 5. Inability to return to prior living environment at this time Patient is assessed as a 73314 moderate complexity based on the following: History: 85-year-old female with past medical history as indicated above Examination: Demonstrable impairment in strength, balance, and mobility level with underlying impairments and functional limitations as exhibited above as well as deficit score of 21% utilizing the [facility] Mobility Inpatient Short Form Presentation: Evolving Decision Makin moderate complexity Goals: Goals X1 week 1. Supine-Sit independent 2. Sit-Supine independent 3. Sit-Stand independent 4. Stand-Sit independent 5. Bed-Chair independent 6. Chair-Bed independent 7. Independent gait on level surface with use of no assistive device for at least 1000 feet without report of pain nor dyspnea 8. Independent stair negotiation while holding onto B rails for at least 12 arti ps without report of pain nor dyspnea 9. Good static and dynamic standing balance/tolerance Plan of Care/Treatment Plan: 1-2x/day, 7 days/week x 1 week. Plan of care has been reviewed with the [employer] providing the service under Physical Therapy direction. Initiate Physical Therapy intervention for pain management as needed, strengthening, bed mobility, transfers, gait, stairs, balance training, and use of assistive device. DISCHARGE RECOMMENDATIONS: Patient will benefit from home health PT services in order to progress mobility level using least restrictive assistive ambulatory device, assess home safety, identify additional equipment needs, and establish a functional maintenance program that will increase ability of patient to remain at home. TREATMENT CODE/TIME: 9716 2 x 25 minutes, 02041 X 31 minutes beginning at 9:07 AM. Thank you for the opportunity to participate in the care of this patient. Mary Shelley PT, DPT, CLT [facility] [place], [place]
[2020-11-26] MEDS: POTASSIUM CHLORIDE/0.9% NACL 1,000 ML 80 MEQ IV (10:48)
--- NOTE | 2020-11-26 11:50 | INITIAL_ITS ---
- If Service Date Differs Date of service: 11/26/20 Time of Service: 11:50 Care Management Initial Assess REASON FOR HOSPITALIZATION:: acute confusional state PAST MEDICAL HISTORY/PAST SURGICAL HISTORY:: Medical History. Actinic keratosis. Asthma. Benign hypertension. Carcinoma of left breast. Invasive intraductal. Chronic pruritus. Cortical age-related cataract of both eyes. Cortical age-related cataract of both eyes (12/19/16). Diabetes mellitus. Diverticulosis. Esophageal ulcer. Essential hypertension. Gastric ulcer. Grade II internal hemorrhoids. Hypercholesterolemia. Hypermetropia. Intention tremor. Obesity. Osteoarthritis. Primary biliary cholangitis. Primary osteoarthritis of left knee. Synovial cyst of left popliteal space. Torn rotator cuff (06/23/13). Repair rotator cuff by Dr. Kaden Escobedo 06-23-2013. Surgical History. Biopsy of breast (04/18/17). benign breast tissue with cyst wall. Colonoscopy - IV Sedation. 10 + years ago- normal. Colonoscopy - MAC (12/31/17). EGD - MAC (12/31/17). ganglion, left ankle. Nuclear senile cataract. Oseotomy (10/06/98). TONNY BILATERAL FEET. Rotator Cuff Repair (06/23/13). Right with distal clavical excision PREVIOUS FUNCTIONAL STATUS/SOCIAL/FAMILY SUPPORTS:: Elina lives in [place]. Her daugther, Yaneli, lives nearby. She is a , and lives alone independently. She receives support from her daughter and son, who are both local, as well as extended family. CURRENT FUNCTIONAL STATUS:: Elina was sitting up in her chair eating lunch when CM met with her. She reported that she has been busy this morning, having an EEG and an MRI. Per report, Neuro has been consulted as well. CM discussed services for discharge planning purposes, and she stated that she is not agreeable to services, and she adamantly refuses SNF. CM will continue to follow. ADVANCE DIRECTIVES:: None on file, CM will offer forms. Has patient been provided with info about the portal/API?: Yes Did the patient sign up for the portal?: No CODE STATUS:: Full Code INSURANCE COVERAGE / FINANCIAL ISSUES:: MCR/ Financial assist 100% CURRENT HOME/COMMUNITY SERVICES/EQUIPMENT:: No current services or equipment. PRIMARY CARE PHYSICIAN:: Miguel Morrow POTENTIAL DISCHARGE NEEDS:: Evaluation for further needs, follow up appointments. PATIENT/FAMILY EDUCATION NEEDS:: Review discharge instructions regarding ac tivity levels and medications, discussion of self care needs and goals of care. ANTICIPATED BARRIERS TO DISCHARGE:: None identified at this time. TRANSPORTATION:: Via private vehicle by family. PLAN:: Anticipate Elina will return home once medically cleared. She will be driven home via private vehicle by family when ready. She will follow up with her PCP and discharge plan of care. CM will continue to follow.
--- NOTE | 2020-11-26 13:51 | PDOC.EEG ---
Neurology EEG EEG: [facility] Department of Neurology INPATIENT EEG REPORT Date of Recordin11/26/20 Interpreting Physician: Dr. Mikala Hernandez Reason for study: Ms. Duarte is an 85 year-old woman who was admitted after an episode of altered mental status and then found down. Per reports, she seemed to better but then overnight became confused again. Current Medications: Current Medications Acetaminophen (Acetaminophen 325 Mg Tab) 650 mg PO Q4H PRN PRN Last Admin: 11/25/20 15:40 Dose: 650 mg Documented by: Albuterol Sulfate (Albuterol Hfa 8 Gm 60 Puff Inh) 0 puff IH Q6H PRN PRN Anastrozole (Anastrozole 1 Mg Tab) 1 mg PO DAILY [facility] Last Admin: 11/26/20 08:47 Dose: 1 mg Documented by: Atorvastatin Calcium (Atorvastatin 40 Mg Tab) 40 mg PO DAILY [facility] Last Admin: 11/26/20 08:48 Dose: 40 mg Documented by: Device (Inhaler, Assist Device) 1 each MC DIRECTED [facility] Dimethicone/Zinc Oxide (Domi Protect Cream 142 Gm Tube) 0 gm TP PRN PRN Sodium Chloride (Saline 500ml Bag) 500 mls @ 0 mls/hr IV PRN PRN Potassium Chloride/Sodium Chloride (Kcl 20meq/Ns) 1,000 mls @ 80 mls/hr IV INFUSION [facility] Last Admin: 11/26/20 10:48 Dose: 80 mls/hr Documented by: IV Miscellaneous Supplies (Iv Access) 1 each IV DIRECTED [facility] Polyethylene Glycol (Polyethylene Glycol 3350 17 Gm Packet) 17 gm PO DAILY PRN PRN PRN Reason: Constipation Sodium Chloride (Normal Saline Flush 10 Ml Syr) 0 ml IVP PRN PRN Last Admin: 11/26/20 08:48 Dose: 10 ml Documented by: Ursodiol (Ursodiol 300 Mg Cap) 300 mg PO TID [facility] Last Admin: 11/26/20 08:47 Dose: 300 mg Documented by: METHODS: A 21 channel digitized electroencephalogram was performed in the [facility] Med/Surg Floor or ICU. The 10/20 international system of electrode placement was used and bipolar and referential electrode montages were recorded. In addition to EEG the patient was monitored for EKG and lateral/vertical eye movements. Activation procedures of photic stimulation and hyperventilation were performed if applicable. Video was used during activation procedures and during events where applicable. The duration of the recording was 30 minutes. DESCRIPTION OF EEG: The patient was noted to be awake, drowsy, and asleep during the recording. During maximal wakefulness, no obvious posterior background rhythm was seen. During wakefulness, the predominant pattern was a generalized moderate amplitude delta and theta mix. At times, this pattern developed into a slow 1.5 Hz rhythmic generalized triphasic wave pattern. There were some sharps seen in this pattern, particularly on the left at T3, T5, O1. I am calling this pattern GPEDs + TW (generalized periodic epileptiform discharges with triphasic morphology). This pattern seems to teo in sleep. Stage II sleep was present with symmetrical sleep spindles. Activating Procedures: Photic stimulation was performed which produced no posterior driving response. Hyperventilation was not performed. EKG: EKG revealed normal sinus rhythm. INTERPRETATION: This EEG is abnormal due to the presence of GPEDs + TW (generalized periodic epileptiform discharges with triphasic morphology), with some sharp components. Given clinical symptoms of encephalopathy, this pattern represents a form of status epilepticus. PRIOR EEG: none CLINICAL CORRELATION: The above pattern is consistent with a form of abnormal ictal activity and generalized status epilepticus. I recommend treating with anti-seizure medications and continuous EEG. These results were discussed with the hospitalist at 1345. Mikala Hernandez MD
[2020-11-26] MEDS: levETIRAcetam 1,000 MG in Normal Saline 100 ML 400 MG IVPB (14:38)
--- NOTE | 2020-11-26 15:05 | W.PM.PROGNOT ---
Date of Service Date of service: 11/26/20 Time of Service: 15:05 Assessment and Plan Assessment and plan (1) Status epilepticus: Status: Acute Assessment and plan: EEG showed: abnormal due to the presence of GPEDs + TW (generalized periodic epileptiform discharges with triphasic morphology), with some sharp components. Given clinical symptoms of encephalopathy, this pattern represents a form of status epilepticus. Neurology consult appreciated. Continuous EEG initiated. Keppra 1000 mg IV now then 500 mg po BID. (2) Hypokalemia: Status: Acute Assessment and plan: Currently receiving K in IV fluids. Will continue IV fluids; oral intake is marginal at best. Monitor (3) Primary biliary cholangitis: Status: Acute Assessment and plan: Cont ursodiol for pruritus. (4) Essential hypertension: Status: Chronic Assessment and plan: Controlled. Cont lisinopril 20mg daily. (5) Diabetes mellitus: Status: Chronic Assessment and plan: Holding metformin Glucose on blood draw this AM of 88. She is currently on a regular diet. If glucose increases can change to diabetic. Add fingerstick glucose monitoring to determine if further interventions warranted. 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 Continues to be more drowsy and confused this AM though she did state she [facility] and it was November. No WAGNER, CP. Exam Const General: cooperative, no acute distress and frail appearing Nutritional Appearance: overweight Orientation: awake Eyes Sclera: sclerae normal Pupils: PERRL Neck Neck: full ROM and no JVD Resp Effort & Inspection: normal respiratory effort Auscultation: clear to auscultation bilaterally Cardio Rate: regular rate Rhythm: regular rhythm Heart Sounds: S1 normal and S2 normal Neuro General: no focal motor deficits (ambulating with walker) Speech: speech normal Extrem General: no calf tenderness and edema Laterality: bilateral (1+) Psych Speech and Movement: slowed movement Affect: blunted Objective Last Vital Signs Temp 36.6 C 11/26/20 11:40 Pulse 93 H 11/26/20 11:40 Resp 20 11/26/20 11:40 BP 124/80 11/26/20 11:40 Pulse Ox 95 11/26/20 11:40 Laboratory Results - last 24 hr 11/25/20 11/25/20 11/25/20 14:55 14:55 16:25 WBC RBC Hgb Hct MCV MCH MCHC RDW Plt Count MPV Immature Gran % Neutrophils % Lymphocytes % Monocytes % Eosinophils % Basophils % Nucleated RBC % Absolute Neutrophils Absolute Lymphocytes Absolute Monocytes Absolute Eosinophils Absolute Basophils Sodium Potassium Chloride Carbon Dioxide Anion Gap BUN Creatinine Estimated GFR/1.73 m2 Glucose Calcium Total Bilirubin AST ALT Alkaline Phosphatase Troponin I 0.05 NT-Pro-B Natriuret Pep 255 Total Protein Albumin COVID-19 Source Nasal/nares SARS-CoV-2 (PCR) Negative 11/26/20 11/26/20 06:10 06:10 WBC 8.50 RBC 3.44 L Hgb 10.0 L Hct 28.0 L MCV 81.4 MCH 29.1 MCHC 35.7 RDW 15.4 H Plt Count 180 MPV 12.1 H Immature Gran % 0.4 Neutrophils % 50.5 Lymphocytes % 34.4 Monocytes % 9.8 Eosinophils % 4.2 Basophils % 0.7 Nucleated RBC % 0 Absolute Neutrophils 4.30 Absolute Lymphocytes 2.92 Absolute Monocytes 0.83 H Absolute Eosinophils 0.36 Absolute Basophils 0.06 Sodium 140 Potassium 3.5 Chloride 106 Carbon Dioxide 25.6 Anion Gap 8.4 BUN 28 H Creatinine 1.0 Estimated GFR/1.73 m2 52.95 Glucose 88 Calcium 8.5 Total Bilirubin 1.5 H AST 99 H ALT 45 Alkaline Phosphatase 186 H Troponin I NT-Pro-B Natriuret Pep Total Protein 6.1 L Albumin 1.9 L COVID-19 Source SARS-CoV-2 (PCR)
--- NOTE | 2020-11-26 15:09 | PT.INTREAT ---
Date of service: 11/26/20 Time of Service: 14:05 PT Notes Visit Reasons: acute confusional state Inpatient Physical Therapy Treatment Note [facility] Date: 11/26/2020 PRECAUTIONS: Fall SUBJECTIVE: Elina is pleasant and agreeable to PT. She states several times that she is very cold. She also states that she feels much weaker than her baseline. OBJECTIVE: Patient appears slow to process information and in response PAIN: No c/o pain BED MOBILITY/TRANSFERS Sit-stand: S Stand-sit: S GAIT Assistive Device: FWW Weight bearing: Full Assist: SBA Distance: 200' Deviation: Slow pace, wide ISIS, path deviation to L and R, narrowly avoids hitting objects with FWW STAIRS: Up/down 3x4 and 2x6 using B rails and a step-to pattern with supervision THEREX: Patient was instructed in several seated LE strengthening exercises, as per flow sheet. She demonstrates difficulty with hip flexion R>L. ASSESSMENT: Patient was able to tolerate the addition of stair negotiation training and LE strengthening exercises. She demonstrates path deviation to L/R and narrowly avoid hitting objects with FWW. PLAN: Continue with global strengthening and gait training with least restrictive device. TREATMENT CODE/TIME: 30 minutes; 35182, [id number] (14:05)
[2020-11-26] MEDS: Normal Saline 500 ML IV ×2 (16:33→19:01)
[2020-11-26] MEDS: LORazepam 2 MG/ML VIAL IVP (16:48)
--- NOTE | 2020-11-26 20:37 | W.PM.PROGNOT ---
Date of Service Date of service: 11/26/20 Time of Service: 20:37 Subjective Subjective Interval history since last seen: I did not see the patient. This is an EEG update. Patient with EEG earlier today as per not c/w non-convulsive status epilepticus. She was loaded with 2g IV levetiracetam. EEG reconnected and improved but still consistent with SE. Patient's BP has been low and she was given IVF bolus. Neice in room around 430 thought she was slightly better. Patient then given 2mg IV Ativan just before 5pm. This dramatically improved the EEG and resolved the subclinical status. Plan was thus then to add 400mg topiramate x1 oral in addition to LEV 1000mg BID to see if we could prevent further seizure activity. However, patient somnolent after Ativan with low BPs not responding to IVF bolus. Transferred to ICU. IV Ativan was reversed. She remains somnolent. I reviewed EEG again. It is still improved but I see epileptic activity trying to emerge. She is now unable to take PO and thus will not get topiramate bolus. IV phenobarbital is not an option unless planning to intubate. IV Depakote and fosphenytoin would lower BP further and likely also warrant intubation because of that fact. I spoke with pharmacy and we may have IV lacosamide inhouse. Would load with IV 200mg now. Continue leveitracetam 1000mg IV BID. Otherwise, consider intubation. Could use proprofol and/or benzo for sedation and seizure activity. May still need pressors. Could still consider addition of lacosamide above if has it. Continue EEG overnight. Official EEG report to be written in am. Objective Last Vital Signs Temp 36.9 C 11/26/20 18:36 Pulse 84 11/26/20 19:03 Resp 12 11/26/20 17:10 BP 85/36 L 11/26/20 19:03 Pulse Ox 95 11/26/20 18:36 Laboratory Results - last 24 hr 11/25/20 11/26/20 11/26/20 16:25 06:10 06:10 WBC 8.50 RBC 3.44 L Hgb 10.0 L Hct 28.0 L MCV 81.4 MCH 29.1 MCHC 35.7 RDW 15.4 H Plt Count 180 MPV 12.1 H Immature Gran % 0.4 Neutrophils % 50.5 Lymphocytes % 34.4 Monocytes % 9.8 Eosinophils % 4.2 Basophils % 0.7 Nucleated RBC % 0 Absolute Neutrophils 4.30 Absolute Lymphocytes 2.92 Absolute Monocytes 0.83 H Absolute Eosinophils 0.36 Absolute Basophils 0.06 Sodium 140 Potassium 3.5 Chloride 106 Carbon Dioxide 25.6 Anion Gap 8.4 BUN 28 H Creatinine 1.0 Estimated GFR/1.73 m2 52.95 Glucose 88 Calcium 8.5 Total Bilirubin 1.5 H AST 99 H ALT 45 Alkaline Phosphatase 186 H Total Protein 6.1 L Albumin 1.9 L SARS-CoV-2 (PCR) Negative
[2020-11-26] MEDS: Normal Saline 500 ML 1000 ML IV (22:00)
[2020-11-26] MEDS: Rocuronium 50 MG/5 ML SYR 80 MG IVP (22:35)
[2020-11-26] MEDS: Midazolam 10 MG/10 ML IVP (22:40)
[2020-11-26 22:52] LABS: BE 2 mmol/L (-2-3); HCO3 27 mmol/L (22-26); pCO2 47 mmHg (35-45); pH 7.37 (7.35-7.45); pO2 102 mmHg (80-105); sO2 98 % (95-98); tCO2 26 mmol/L (23-27)
[2020-11-26 22:55] LABS: FIO2 50 %; Site Right Radial
[2020-11-26] MEDS: Normal Saline 1,000 ML 150 ML IV (23:00)
[2020-11-26] MEDS: PROPOFOL 500 MG/50 ML BTL IVPB (23:30)
[2020-11-27] VITALS (90 sets, daily range): BP systolic 76–126; BP diastolic 37–83; PULSE 71–96; RESP 13–25; TEMP 36–36.4; O2SAT 95–100
--- NOTE | 2020-11-27 00:10 | W.PM.OP ---
Date of service: 11/26/20 Time of Service: 22:30 Operative Note Operative Note DATE OF PROCEDURE: 11/26/20 PRE-OP DIAGNOSIS: status epilepticus POST-OP DIAGNOSIS: same PROCEDURE: [place] videoscopic assisted intubation and mechanical ventilation. After verbal consent was obtained from her son, Chon Duarte, over the telephone, patient was sedated as listed in anesthetic record. Patient was preoxygenated w/ ambu-bag valve mask by myself and respiratory therapy to SPO2 OF 99 TO 100%. Using MAC #3 glidescope the vocal cords were visualized and bougie was passed into the upper trachea and #7.5 ET was attempted to be passed but had difficulty passing the ET past the VC. There was a small amount of oropharyngeal bleeding and ET and bougie were withdrawn and patient was oxygenated w/ ambu bag valve mask. SPO2 dropped to as low as 76% but quickly came up to 100% before second attempt was made at intubation. A #7 ET was intubated using the same MAC glide scope blade and using a soft stylet/ET combination and tube was visualized to pass between the vocal cords. ET was placed at 24 cm at the lips. Bilateral breath sounds were heard w/ good rising of the chest w/ mechanical ventilation and end tidal CO2 monitor and SPO2 confirmed placement. CXR was obtained to confirm placement of ET tube. SURGEON: Drew Apple ANESTHESIA TYPE: MAC (RSI premedication w/ phenylephrine 150 mcg (100 mcg and additional 50 mcg); sedation w/ midazolam 10 mg, paralysis w/ rocuronium 80 mg) to Anesthesia Record COMPLICATIONS: Other (small amount of oropharyngeal bleeding) Procedure Description: see above
--- NOTE | 2020-11-27 00:24 | ROE_ITS ---
Date of service: 11/26/20 Time of Service: 23:30 Operative Note Operative Note DATE OF PROCEDURE: 11/26/20 PRE-OP DIAGNOSIS: status epilepticus; poor peripheral iv access POST-OP DIAGNOSIS: same PROCEDURE: Left internal jugular triple lumen catheter placement ANESTHESIA TYPE: Other (patient already sedated on propofol drip for control of status epilepticus and for sedation for mechanical ventilation; local lidocaine 1% 5 mL given SC/ID into the left IJ site) Refer to Anesthesia Record Patient's condition: stable Procedure Description: After obtaining verbal consent from her son, Chon Duarte, the patient was prepared for insertion of triple lumen CVC into her left internal jugular vein. Using an Arrow brand pressure injectable Arrowgard Blue Plus three lumen CVC 7 Sinhala 20 cm catheter kit and the enclosed equipment including sterile gown, gloves, face shield, patient drape and after first confirming patency of her left internal jugular and confirming location of her carotid in relationship to her IJ, the patient was preped w/ the enclosed sterile chloraprep swabs over her left internal jugular between her medial and lateral sternocleidomastoid muscles. The skin was anesthetized SC and ID w/ the enclosed lidocaine 1% x 5 mL. After having preflushed the triple lumens w/ sterile saline I then used a [employer] ultrasound device and a linear transducer 15-6 under sterile conditions to monitor the introduction of my 18 gauge introducer needle. Once the introducer needle was confirmed to be in the IJ, I attempted to pass the flexible J tip wire but the tip came out of the Arrow advancer necessitating using the straight end of the guide wire, however in the process of putting down my transducer probe and obtaining the scalpel to make my incision, the guide wire came out of the vessel necessitating starting over w/ a new kit. On the second attempt the IJ was recannulated using the enclosed echogenic 18 gauge introducer needle and [place] syringe and the J tipped end of the guidewire was successfully passed. confirmation of the guidew ritu in the lumen of the IJ was obtained using the ultrasound probe. A small incision was made into the skin and the vessel dilator was used to make a larger opening. The triple lumen catheter was passed to a distance of 18 cm and was secured to the skin w/ the catheter clamp and a biodot was applied and dressing was applied. CXR was obtained to confirm placement of the CVC catheter. The tip of the catheter was seen to be in the junction of the SVC and left IJ.
--- NOTE | 2020-11-27 00:51 | DI.VRAD_ITS ---
PROCEDURE INFORMATION: Exam: XR Chest Exam date and time: 11/27/2020 12:06 AM Age: 85 years old Clinical indication: Device placement; Ng tube TECHNIQUE: Imaging protocol: XR of the chest. Views: 1 view. Total images: 1 COMPARISON: CR XR CHEST 2V PA LATERAL 11/25/2020 1:18 PM FINDINGS: Tubes, catheters and devices: Nasogastric tube tip in the gastric fundus. Endotracheal tube tip 2.8 cm above the miriam. Lungs: Alveolar opacities in the left lung base and peripheral left mid lung, and to a lesser degree the right perihilar region. This could represent multifocal pneumonia or an atypical edema pattern. Pleural spaces: Blunted left lateral costophrenic angle suggesting pleural scarring or small effusion. No pneumothorax. Heart/Mediastinum: Heart size within normal limits for portable AP technique. Mild central vascular congestion. Vasculature: Left jugular line placed with its tip in the proximal most SVC distribution. Diaphragm: Chronic elevation of the right hemidiaphragm again noted. Bones/joints: Osteopenia. Soft tissues: Surgical clips in the left axillary region. IMPRESSION: 1. Lines and tubes positioned as described. 2. Bilateral alveolar opacities, left greater than right, concerning for multifocal pneumonia versus multifocal atelectasis or an atypical edema pattern. Small left basilar pleural effusion versus pleural scarring. Dictated and Authenticated by: Julio Daniel MD. Ordering:[facility] Ambika Russell MD
[2020-11-27] MEDS: Pantoprazole 40 MG VIAL IVP (01:19)
[2020-11-27 01:41] LABS: BE 2 mmol/L (-2-3); HCO3 26 mmol/L (22-26); pCO2 38 mmHg (35-45); pH 7.44 (7.35-7.45); pO2 97 mmHg (80-105); sO2 98 % (95-98); tCO2 25 mmol/L (23-27)
[2020-11-27 01:45] LABS: Site Left Radial
[2020-11-27] MEDS: NORMAL SALINE IVPB (03:00)
[2020-11-27] MEDS: LACOSAMIDE IVPB (03:00)
[2020-11-27] MEDS: levETIRAcetam 1,000 MG in Normal Saline 100 ML 400 MG IVPB (04:00)
[2020-11-27] MEDS: PIPERACILLIN/TAZO 4.5 GM in Normal Saline 100 ML IVPB ×2 (04:50→10:18)
[2020-11-27] MEDS: Normal Saline 100 ML 25 ML (04:59)
[2020-11-27 06:35] LABS: Abs Immature Grans 0.03 10^3/uL (0.0-0.06); Absolute Basophil Count 0.11 10^3/uL (0.0-0.2); Absolute Neutrophil Count 7.17 10^3/uL (1.2-6.7); Basophils % 0.9; Eosinophils % 7.1; HCT 30.3 % (36.0-46.0); HGB 10.3 g/dL (11.2-15.7); Immature Grans % 0.2; Lymphocytes % 20.7; MCV 85.4 fL (80-95); MPV 11.9 fL (8.0-11.0); Neutrophils % 58.1; Nucleated RBC 0 %; Platelet Count 199 10^3/uL (130-400); RBC 3.55 10^6/uL (3.93-5.22); RDW 15.9 % (11.7-14.6); RDW-SD 48.4 fL; WBC 12.34 10^3/uL (4.4-10.8)
[2020-11-27 06:40] LABS: Absolute Eosinophil Count 0.88 10^3/uL (0.0-0.7); Absolute Lymphocyte Count 2.55 10^3/uL (1.2-3.4)
[2020-11-27 06:54] LABS: ALT 48 U/L (14-59); AST 94 U/L (15-37); Albumin 1.8 g/dL (3.4-5.0); Alkaline Phosphatase 156 U/L (46-116); Anion Gap 9.9 mmol/L (3-11); BUN 25 mg/dL (7-18); Bilirubin, Total 1.9 mg/dL (0.2-1.0); CO2 25.1 mmol/L (21.0-32.0); CREATININE 0.9 mg/dL (0.55-1.02); Calcium 7.8 mg/dL (8.5-10.1); Chloride 110 mmol/L (98-107); Glucose 104 mg/dL (74-106); NT-proBNP 342 pg/mL (<300); Potassium 3.5 mmol/L (3.5-5.1); Sodium 145 mmol/L (136-145); Total Protein 5.9 g/dL (6.4-8.2)
[2020-11-27 06:55] LABS: Troponin I < 0.05 ng/mL (<0.06)
[2020-11-27 07:16] LABS: Anisocytosis 1+; Diff Comment Diff Reviewed
[2020-11-27 08:04] LABS: BE 2 mmol/L (-2-3); HCO3 26 mmol/L (22-26); pCO2 38 mmHg (35-45); pH 7.45 (7.35-7.45); pO2 45 mmHg (80-105); sO2 80 % (95-98); tCO2 24 mmol/L (23-27)
[2020-11-27 08:06] LABS: Site Left Radial
[2020-11-27 08:07] LABS: FIO2 40 %
--- NOTE | 2020-11-27 08:28 | W.PM.PROGNOT ---
Subjective Subjective Interval history since last seen: Intubaed/sedated. Propofol Norepi. MAP 66. Moving feet voluntarily. Stopped EEG. Crackles. 1st degree AV blocks. legs puffy bilaterally. Objective Last Vital Signs Temp 36.0 C L 11/27/20 06:00 Pulse 82 11/27/20 06:31 Resp 15 11/27/20 06:31 BP 106/51 L 11/27/20 06:31 Pulse Ox 99 11/27/20 06:31 Laboratory Results - last 24 hr 11/26/20 11/27/20 11/27/20 22:50 01:35 06:20 WBC RBC Hgb Hct MCV MCH MCHC RDW Plt Count MPV Immature Gran % Neutrophils % Lymphocytes % Monocytes % Eosinophils % Basophils % Nucleated RBC % Absolute Neutrophils Absolute Lymphocytes Absolute Monocytes Absolute Eosinophils Absolute Basophils RBC Morphology Anisocytosis ABG Sample Site Right radial Left radial ABG pH 7.37 7.44 ABG pCO2 47 H 38 ABG pO2 102 97 ABG HCO3 27 H 26 ABG Total CO2 26 25 ABG O2 Saturation 98 98 ABG Base Excess 2 2 Oxygen Liter Flow 300/16/50+5 FiO2 50 Sodium 145 Potassium 3.5 Chloride 110 H Carbon Dioxide 25.1 Anion Gap 9.9 BUN 25 H Creatinine 0.9 Estimated GFR/1.73 m2 59.80 Glucose 104 Calcium 7.8 L Total Bilirubin 1.9 H AST 94 H ALT 48 Alkaline Phosphatase 156 H Troponin I < 0.05 NT-Pro-B Natriuret Pep 342 H Total Protein 5.9 L Albumin 1.8 L 11/27/20 11/27/20 06:20 08:00 WBC 12.34 H D RBC 3.55 L Hgb 10.3 L Hct 30.3 L MCV 85.4 MCH 29.0 MCHC 34.0 RDW 15.9 H Plt Count 199 MPV 11.9 H Immature Gran % 0.2 Neutrophils % 58.1 Lymphocytes % 20.7 Monocytes % 13.0 Eosinophils % 7.1 Basophils % 0.9 Nucleated RBC % 0 Absolute Neutrophils 7.17 H Absolute Lymphocytes 2.55 Absolute Monocytes 1.60 H Absolute Eosinophils 0.88 H Absolute Basophils 0.11 RBC Morphology See below Anisocytosis 1+ ABG Sample Site Left radial ABG pH 7.45 ABG pCO2 38 ABG pO2 45 L ABG HCO3 26 ABG Total CO2 24 ABG O2 Saturation 80 L ABG Base Excess 2 Oxygen Liter Flow Vc/ac vt400/p5/r16 FiO2 40 Sodium Potassium Chloride Carbon Dioxide Anion Gap BUN Creatinine Estimated GFR/1.73 m2 Glucose Calcium Total Bilirubin AST ALT Alkaline Phosphatase Troponin I NT-Pro-B Natriuret Pep Total Protein Albumin
--- NOTE | 2020-11-27 08:30 | DI.RAD_ITS ---
Exam(s) XR PORTABLE CHEST AP EXAM: XR PORTABLE CHEST AP CLINICAL HISTORY: resp. failure, status epilepticus. TECHNIQUE: 2D digital imaging was performed. COMPARISON: CR,XR XR PORTABLE CHEST AP POST LINE from 11/27/2020 FINDINGS: Compared to chest x-ray earlier same date. Distal tip of the endotracheal tube is in satisfactory position above the miriam. An NG tube is in t he stomach. Distal tip of the left supra clavi in central line is at the junction of the innominate vein and SVC. Infiltrate in the left lower lobe retrocardiac region is again noted. Although it appears somewhat s maller than earlier today this is most probably related to the ventilation. Infiltrate in the right lung base has improved. No large pleural effusions. No pneumothorax. Surgical clips in left axilla again noted. IMPRESSION: DATA REPOSITORY: RADIATION DOSE DELIVERED: All CT scans at this facility use at least one of these dose optimization techniques: automated exposure control; mA and/or kV adjustment per patient size (includes targeted e xams where dose is matched to clinical indication); or iterative reconstruction.
--- NOTE | 2020-11-27 08:41 | PDOC.EEG_ITS ---
Neurology EEG EEG: Department of Neurology LONG-TERM OVERNIGHT EEG REPORT Date of Recordin11/26/20 at 16:31:49 to 11/27/20 at 08:28:40 Interpreting Physician: Dr. Mikala Hernandez Reason for study: Non-convulsive status epilepticus. Current Medications: Current Medications Albuterol Sulfate (Albuterol Hfa 8 Gm 60 Puff Inh) 0 puff IH Q6H PRN PRN Albuterol/Ipratropium (Albuterol/Ipratropium 3 Ml Upd Vial) 3 ml UPD Q6H PRN PRN Anastrozole (Anastrozole 1 Mg Tab) 1 mg PO DAILY CHELA Last Admin: 11/26/20 08:47 Dose: 1 mg Documented by: Atorvastatin Calcium (Atorvastatin 40 Mg Tab) 40 mg PO DAILY CHELA Last Admin: 11/26/20 08:48 Dose: 40 mg Documented by: Device (Inhaler, Assist Device) 1 each DIRECTED [facility] Dimethicone/Zinc Oxide (Domi Protect Cream 142 Gm Tube) 0 gm TP PRN PRN Sodium Chloride (Saline 500ml Bag) 500 mls @ 0 mls/hr IV PRN PRN Propofol (Diprivan) 500 mg in 50 mls @ 2.205 mls/hr IVPB INFUSION [facility]; Protocol Last Titration: 11/27/20 01:55 Dose: 10 mcg/kg/min, 4.41 mls/hr Documented by: Sodium Chloride (Saline 1000ml Bag) 1,000 mls @ 150 mls/hr IV INFUSION [facility] Last Admin: 11/27/20 10:00 Dose: 150 mls/hr Documented by: Levetiracetam 1,000 mg/ Sodium (Chloride) 110 mls @ 400 mls/hr IVPB Q12H [facility] Last Infusion: 11/27/20 04:20 Dose: Infused Documented by: Norepinephrine Bitartrate 8, (000 mcg/ Dextrose/Water) 250 mls @ 13.781 mls/hr IV INFUSION [facility]; Protocol Last Titration: 11/27/20 11:10 Dose: 0.25 mcg/kg/min, 34.453 mls/hr Documented by: Piperacillin Sod/Tazobactam (Sod 4.5 gm/ Sodium Chloride) 100 mls @ 25 mls/hr IVPB Q8H [facility]; Protocol Last Admin: 11/27/20 10:18 Dose: 25 mls/hr Documented by: Lacosamide 100 mg/ Sodium (Chloride) 60 mls @ 100 mls/hr IVPB Q12H [facility] IV Miscellaneous Supplies (Iv Access) 1 each IV DIRECTED [facility] Lorazepam (Lorazepam 2 Mg/Ml Vial) 2 mg IVP Q20MIN PRN Midazolam HCl (Midazolam 10 Mg/10 Ml) 10 mg IVP DIRECTED [facility] Last Admin: 11/26/20 22:40 Dose: 10 mg Documented by: Morphine Sulfate (Morphine 2 Mg/Ml Syr) 1 - 2 mg IVP Q1H PRN PRN Pantoprazole Sodium (Pantoprazole 40 Mg Vial) 40 mg IVP Q24H [facility] Last Admin: 11/27/20 01:19 Dose: 40 mg Documented by: Phenylephrine HCl (Phenylephrine 400 Mcg/10 Ml Syr) 150 mcg IVP DIRECTED [facility] Last Admin: 11/26/20 22:30 Dose: 150 mcg Documented by: Rocuronium [place] (Rocuronium 50 Mg/5 Ml Syr) 80 mg IVP DIRECTED [facility] Last Admin: 11/26/20 22:35 Dose: 80 mg Documented by: Sodium Chloride (Normal Saline Flush 10 Ml Syr) 0 ml IVP PRN PRN Last Admin: 11/26/20 22:00 Dose: 60 ml Documented by: Ursodiol (Ursodiol 300 Mg Cap) 300 mg PO TID [facility] Last Admin: 11/26/20 23:52 Dose: Not Given Documented by: METHODS: A 21 channel digitized electroencephalogram was performed in the Med/Surg Floor or ICU. The 10/20 international system of electrode placement was used and bipolar and referential electrode montages were recorded. In addition to EEG the patient was monitored for EKG and lateral/vertical eye movements. Activation procedures of photic stimulation and hyperventilation were performed if applicable. Video was used during activation procedures and during events where applicable. The duration of the recording was ~15 hours. DESCRIPTION OF EEG: During wakefulness, the predominant pattern was a generalized moderate amplitude delta and theta mix. At the beginning, this pattern was manifested by a slow 1.5 Hz rhythmic generalized triphasic wave pattern. There were some sharps seen in this pattern. This was felt to be consistent with this pattern GPEDs + TW (generalized periodic epileptiform discharges with triphasic morphology) and further, felt to ictal. This rhythm was less frequent than in the previous recording (now s/p IV levetiracetam load but still present). Patient was given 2mg IV Ativan at approximately 16:57:44 on 11/26/20 after which the triphasic pattern stopped completely and instead there remained a generalized slow delta/theta mix pattern. By ~1900, the rhythmic GPEDs + TW returned though of lower amplitude (Ativan reversal agent had apparently been used). This pattern increased in frequency, amplitude and rhythmicity returning to pre-treatment levels by ~2215 at which time the pattern returns to a suppression pattern - I suspect that is when intubation was performed and subsequently started on propofol drip. During the night, the EEG stayed in suppression pattern until 0700 on 11/27/20 when again the GPED + TW pattern is seen to be re-emerging again. EEG was turned off at 0830. Activating Procedures: n/a EKG: EKG revealed normal sinus rhythm. INTERPRETATION: This long-term EEG is abnormal due to periods of GPEDs + TW (generalized periodic epileptiform discharges with triphasic morphology), with some sharp components - consistent with subclinical status epilepticus - alternating with periods of burst suppression. At the end of the recording, the patient was no longer in suppression as the ictal state was re-emerging. PRIOR EEG: -EEG (11/26/20): GPEDs + TW (generalized periodic epileptiform discharges with triphasic morphology), with some sharp components; c/w SE CLINICAL CORRELATION: The above pattern is consistent with a form of abnormal ictal activity and generalized subclinical status epilepticus. The majority of the night was spent in burst suppression. At the end of the recording, the ictal pattern was re-ami ging. Mikala Hernandez MD
[2020-11-27 09:30] LABS: Procalcitonin 0.2 ng/mL
[2020-11-27] MEDS: Normal Saline 1,000 ML 150 ML IV (10:00)
[2020-11-27 10:21] LABS: BE 2 mmol/L (-2-3); HCO3 25 mmol/L (22-26); pCO2 34 mmHg (35-45); pH 7.48 (7.35-7.45); pO2 242 mmHg (80-105)
[2020-11-27 10:22] LABS: FIO2 60 %; Site Right Radial; sO2 > 99 % (95-98)
--- NOTE | 2020-11-27 10:47 | PDOC.CMPRO ---
- If Service Date Differs Date of service: 11/27/20 Time of Service: 10:47 Care Management Progress Note S/O: Per report, Elina had a seizure overnight. She was transferred to the ICU and was intubated and sedated at this time. Consent was obtained by her son, Chon. She may be transferred to [facility] today, if she is accepted, pending bed availability. CM will continue to follow. A: Elina is an 85 year old female admitted to [facility] on 11/25/20 for acute confusional state. P: Elina is intubated and is being monitored at ICU level of care. She may be transferred to a tertiary facility today, if accepted, and pending bed availability. If transferred, she will transport via ambulance, coordinated by RN computer analyst supervisor. CM will continue to follow.
--- NOTE | 2020-11-27 11:20 | DI.RAD_ITS ---
Exam(s) XR PORTABLE CHEST AP POST LINE EXAM: XR PORTABLE CHEST AP POST LINE CLINICAL HISTORY: post -intubation/NG/Central line - tube placement. TECHNIQUE: 2D digital imaging was performed. COMPARISON: CR XR CHEST 2V PA LATERAL from 11/25/2020 FINDINGS: Heart size upper normal. The mediastinum is not widened. Patient is intubated. Distal tip of the endotracheal tube is above miriam. An NG tube is noted in t he stomach. There appears to be a left supra clavi in central line. Its distal tip is to the right of center, probably in the distal nominated vein at junction with the SVC. There is prominent infiltrate in the left lower lobe retrocardiac region. Milder infiltrate noted in the opposite-right lung base. No large pleural effusions. IMPRESSION: Bilateral lower lobe infiltrates, left larger than right. ET tube. Satisfactory position. NG tube in stomach. DATA REPOSITORY: RADIATION DOSE DELIVERED: All CT scans at this facility use at least one of these dose optimization techniques: automated exposure control; mA and/or kV adjustment per patient size (includes targeted e xams where dose is matched to clinical indication); or iterative reconstruction.
--- NOTE | 2020-11-27 11:28 | DSE_ITS ---
Date of service: 11/27/20 Time of Service: 11:28 DS: Diagnosis Discharge Diagnosis (1) Non-convulsive status epilepticus: Status: Acute (2) Acute respiratory failure: Status: Acute Asessment and Plan: On vent (3) Hypotension: Status: Acute Asessment and Plan: [place] to be due to sedation (4) Encephalopathy acute: Status: Acute (5) Aspiration pneumonia: Status: Acute (6) History of COVID-19: Status: Resolved (7) Hypokalemia: Status: Resolved (8) Primary biliary cholangitis: Status: Chronic (9) Diabetes mellitus: Status: Chronic Asessment and Plan: non-insulin dependent (10) COVID-19 ruled out by laboratory testing: Status: Ruled-out Discharge Plan Disposition Patient Disposition: [facility] Condition: Serious Discharge Details Reason For Visit: acute confusional state Admit Date/Time: 11/25/20 15:33 Admit Provider: Abel Guzmán Attending Provider: Abel Guzmán Primary Care Provider: Miguel Morrow Hospital Course Hospital Course: Ms Duarte is an 85 year old female with PMHx of breast cancer on arimidex, as well as h/o primary biliary cholangitis, COVID-19 in 2020 (tested negative for COVID-19 on this admission), NIDDM2, who was admitted to [facility] hospitalist service on 11/25/20 having presented with episode of unresponsiveness without witnessed convulsive activity. Her workup on this admission included a n egative CT and non-contrast MRI of the brain, but an EEG positive for generalized non-convulsive status epilepticus. The patient was given 2 mg of IV ativan which did result in improvement on the EEG, but also in hypotension, requiring transfer to the ICU. She did receive flumazenil to reverse lorazepam's effect given profound hypotension despite IVF boluses, but continued to have ictal activity on the EEG. For this, vimpat and keppra were added. Unfortunately, the patient could not protect her airway and remained hypotensive. She was intubated and sedated with propofol. She was initiated on n orepinephrine drip via a L IJ CVL. It does appear that the patient may have aspirated during her intubation and was initiated on zosyn for this. On EEG this morning, it does appear that the patient had resumption of ictal spikes which had resolved overnight. Propofol was titrated up. [facility] does not have continuous EEG capabilities over the weekend and the patient required continuous EEG monitoring. Case was discussed with Dr Hernandez of neurology, who recommended transfer to a tertiary care facility for above. Patient was accepted to [facility] Neuro ICU by Dr Dominguez. We greatly appreciate the assistance of the [facility] clinical team and wish the patient well. Total Critical Care Time 90 minutes. Please, look for inpatient MAR for list of current inpatient medications. The list below reflects the patient's outpatient medication profile. Home Meds and New Rx's Prescriptions: No Action ibuprofen 600 mg tablet 600 mg PO TID PRN (Reason: pain) Qty: 90 RF: 3 cholestyramine-aspartame 4 gram powder 1 pwd PO DAILY RF: 0 ursodiol 300 mg capsule 300 mg PO TID RF: 0 atorvastatin 40 mg tablet 40 mg PO DAILY Qty: 90 RF: 4 anastrozole [Arimidex] 1 mg tablet 1 mg PO DAILY RF: 0 ascorbic acid (vitamin C) [Vitamin C] 500 MG capsule, extended release 500 mg PO DAILY RF: 0 cholecalciferol (vitamin D3) [Vitamin D3] 2,000 UNIT capsule 1,000 unit PO DAILY RF: 0 magnesium amino acid chelate 100 MG tablet 133 mg PO DAILY RF: 0 (DME) blood-glucose meter [FreeStyle Lite Meter] 1 EACH kit 1 ea Miscellaneous DAILY Qty: 1 RF: 0 zinc sulfate 220 (50) mg capsule 5 mg PO DAILY RF: 0 albuterol sulfate [ProAir HFA] 90 mcg/actuation HFA aerosol inhaler 1 puff Inhalation Q6H PRN Qty: 3 RF: 4 (DME) FreeStyle Lite Strips Strip 1 ea Miscellaneous DAILY Qty: 100 RF: 5 (DME) lancets [FreeStyle Lancets] 28 gauge misc 1 ea Miscellaneous DAILY Qty: 100 RF: 6 lisinopril-hydrochlorothiazide 20-12.5 mg tablet 1 tab PO DAILY Qty: 90 RF: 4 metformin 500 mg tablet 500 mg PO BID Qty: 180 RF: 4 furosemide 20 mg tablet 20 mg PO DAILY Qty: 30 RF: 0 ibuprofen [Advil] 200 MG tablet 400 mg PO PRN PRNRF: 0 Discharge Instructions Referrals: Mikala Hernandez MD [ [facility] STAFF PHYSICIAN] - Activity:: bedrest, turn Q2Hrs Diet:: NPO Discharge Orders Discharge Orders: Discharge Order (Routine); Ordered 11/27/20 Ordered By: Mariel Rehman DS: Summary Time Spent with Patient providing and/or coordinating discharge services: Greater than 30 minutes Status at Discharge Functional status at discharge: bed bound Overall status at discharge: patient is not back to baseline Mental Status: other (sedated, unresponsive to verbal or painful stimuli) Speech and Movement: other (not moving) Mood: other (sedated, unresponsive to verbal or painful stimuli) Affect: other (unable to assess due to sedation) Exam Narrative Exam Narrative: General: intubated, Sedated, not responding to verbal or painful stimuli, not moving voluntarily HEENT: eyes closed, Pupils pinpoint 1 mm, symmetric, not tracking. ET and OG tubes. MMM, +JVD Heart: RRR, no m/r/g Lungs: ventilator breath sounds Abdomen: soft, nontender, nondistended Extremities: 2+ edema BLE's, 1+ pedal pulses BLEs. Psych Mental Status: other (sedated, unresponsive to verbal or painful stimuli) Speech and Movement: other (not moving) Mood: other (sedated, unresponsive to verbal or painful stimuli) DS: Data Vitals/I&O Vitals and I&O: Vital Signs Temperature 36.0 C L 11/27/20 06:00 Temperature Source Temporal Artery Scan 11/27/20 06:00 Pulse 86 11/27/20 11:09 Pulse Rhythm Regular 11/26/20 07:10 Pulse 88 11/27/20 11:20 Respiratory Rate 19 11/27/20 11:20 Respiratory Effort 11/27/20 06:00 Respiratory Depth Normal 11/27/20 05:00 Respiratory Pattern Normal 11/26/20 20:30 Blood Pressure 99/39 L 11/27/20 11:09 Blood Pressure Mean 53 11/27/20 11:09 Blood Pressure Position Supine 11/27/20 05:00 Pulse Oximetry 98 11/27/20 11:20 Respiratory End-tidal CO2 30 11/27/20 11:20 Oxygen Delivery Method Mechanical Ventilator 11/27/20 05:00 Oxygen Flow Rate 0 11/27/20 05:00 Fraction of Inspired Oxygen (FIO2) 40 11/27/20 10:45 Pain Level 0 11/27/20 05:00 Comment 11/26/20 16:45 Intake & Output 11/26/20 11/26/20 11/27/20 11:59 23:59 11:59 Intake Total 1320 / 3510 2190 / 3510 1475.074 / 1475.074 Output Total 650 / 900 250 / 900 800 / 800 Balance 670 / 2610 1940 / 2610 675.074 / 675.074 Weight 73.5 kg Intake: IV 1000 / 3070 2070 / 3070 1475.074 / 1475.074 Oral 320 / 440 120 / 440 Output: Urine 650 / 900 250 / 900 800 / 800 Other: Urine Color Yellow Straw Light Uzma Urine Appearance Clear Clear Clear Urine Odor Foul Comment urine dark yellow urine dark yellow on Molina's Mild sediments present Stool Size Large Moderate Stool Characteristics Soft Gastric Occult Blood Oral Negative Voiding Methods Toilet Data Completed and Pending Completed studies during hospitalization [Text1]: CXR 11/25/20: No acute pulmonar y findings.Tenting right hemidiaphragm is again noted. CT head and c/spine w/o contrast 11/25/20: No acute intracranial findings on this noninfused CT scan of the brain. No evidence of cervical spine fracture, malalignment, nor acute compromise of the cervical spinal canal. Multilevel degenerative changes in the cervical spine noted. XR pelvis 11/26/20: There is no evidence of acute pelvic nor hip fracture. No diastasis of the SI joints and symphysis pubis. Mild degenerative changes in the hips. Bone density is age-appropriate. MRI brain w/o contrast 11/26/20: No evidence of an acute infarct. 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 CXR 11/27/20: 1. Lines and tubes positioned as described. 2. Bilateral alveolar opacities, left greater than right, concerning for multifocal pneumonia versus multifocal atelectasis or an atypical edema pattern. Small left basilar pleural effusion versus pleural scarring. CXR 11/27/20: 1. Tubes and lines as described. 2. Improving interstitial edema. EEG 11/26/20: This EEG is abnormal due to the presence of GPEDs + TW (generalized periodic epileptiform discharges with triphasic morphology), with some sharp components. Given clinical symptoms of encephalopathy, this pattern represents a form of status epilepticus. The above pattern is consistent with a form of abnormal ictal activity and generalized status epilepticus. I recommend treating with anti-seizure medications and continuous EEG. EEG 11/27/20: This long-term EEG is abnormal due to periods of GPEDs + TW (generalized periodic epileptiform discharges with triphasic morphology), with some sharp components - consistent with subclinical status epilepticus - alternating with periods of burst suppression. At the end of the recording, the patient was no longer in suppression as the ictal state was re-emerging. The above pattern is consistent with a form of abnormal ictal activity and generalized subclinical status epilepticus. The majority of the night was spent in burst suppression. At the end of the recording, the ictal pattern was re- emerging. Labs on day of discharge: Labs from last 24 hours 11/27/20 11/27/20 11/27/20 10:20 08:01 08:00 WBC RBC Hgb Hct MCV MCH MCHC RDW Plt Count MPV Immature Gran % Neutrophils % Lymphocytes % Monocytes % Eosinophils % Basophils % Nucleated RBC % Absolute Neutrophils Absolute Lymphocytes Absolute Monocytes Absolute Eosinophils Absolute Basophils RBC Morphology Anisocytosis ABG Sample Site Right radial Left radial ABG pH 7.48 H 7.45 ABG pCO2 34 L 38 ABG pO2 242 H 45 L ABG HCO3 25 26 ABG Total CO2 24 ABG O2 Saturation > 99 H 80 L ABG Base Excess 2 2 Oxygen Liter Flow Vt400/p5/r16 Vc/ac vt400/p5/r16 FiO2 60 40 Sodium Potassium Chloride Carbon Dioxide Anion Gap BUN Creatinine Estimated GFR/1.73 m2 Glucose Calcium Total Bilirubin AST ALT Alkaline Phosphatase Troponin I NT-Pro-B Natriuret Pep Total Protein Albumin Procalcitonin Urine Color Pending Urine Clarity Pending Urine pH Pending Ur Specific [place] Pending Urine Protein Pending Urine Ketones Pending Urine Blood Pending Urine Nitrite Pending Urine Bilirubin Pending Urine Urobilinogen Pending Ur Leukocyte Esterase Pending Urine Glucose Pending 11/27/20 11/27/20 11/27/20 06:20 06:20 06:20 WBC 12.34 H D RBC 3.55 L Hgb 10.3 L Hct 30.3 L MCV 85.4 MCH 29.0 MCHC 34.0 RDW 15.9 H Plt Count 199 MPV 11.9 H Immature Gran % 0.2 Neutrophils % 58.1 Lymphocytes % 20.7 Monocytes % 13.0 Eosinophils % 7.1 Basophils % 0.9 Nucleated RBC % 0 Absolute Neutrophils 7.17 H Absolute Lymphocytes 2.55 Absolute Monocytes 1.60 H Absolute Eosinophils 0.88 H Absolute Basophils 0.11 RBC Morphology See below Anisocytosis 1+ ABG Sample Site ABG pH ABG pCO2 ABG pO2 ABG HCO3 ABG Total CO2 ABG O2 Saturation ABG Base Excess Oxygen Liter Flow FiO2 Sodium 145 Potassium 3.5 Chloride 110 H Carbon Dioxide 25.1 Anion Gap 9.9 BUN 25 H Creatinine 0.9 Estimated GFR/1.73 m2 59.80 Glucose 104 Calcium 7.8 L Total Bilirubin 1.9 H AST 94 H ALT 48 Alkaline Phosphatase 156 H Troponin I < 0.05 NT-Pro-B Natriuret Pep 342 H Total Protein 5.9 L Albumin 1.8 L Procalcitonin 0.2 Urine Color Urine Clarity Urine pH Ur Specific [place] Urine Protein Urine Ketones Urine Blood Urine Nitrite Urine Bilirubin Urine Urobilinogen Ur Leukocyte Esterase Urine Glucose 11/27/20 11/26/20 01:35 22:50 WBC RBC Hgb Hct MCV MCH MCHC RDW Plt Count MPV Immature Gran % Neutrophils % Lymphocytes % Monocytes % Eosinophils % Basophils % Nucleated RBC % Absolute Neutrophils Absolute Lymphocytes Absolute Monocytes Absolute Eosinophils Absolute Basophils RBC Morphology Anisocytosis ABG Sample Site Left radial Right radial ABG pH 7.44 7.37 ABG pCO2 38 47 H ABG pO2 97 102 ABG HCO3 26 27 H ABG Total CO2 25 26 ABG O2 Saturation 98 98 ABG Base Excess 2 2 Oxygen Liter Flow 300/16/50+5 FiO2 50 Sodium Potassium Chloride Carbon Dioxide Anion Gap BUN Creatinine Estimated GFR/1.73 m2 Glucose Calcium Total Bilirubin AST ALT Alkaline Phosphatase Troponin I NT-Pro-B Natriuret Pep Total Protein Albumin Procalcitonin Urine Color Urine Clarity Urine pH Ur Specific [place] Urine Protein Urine Ketones Urine Blood Urine Nitrite Urine Bilirubin Urine Urobilinogen Ur Leukocyte Esterase Urine Glucose 11/27/20 09:00 Sputum Sputum Culture - Pending 11/27/20 09:00 Sputum Gram Stain - Pending 11/27/20 08:01 Urine - Cath Molina Indwelling Urine Culture - Pending Preliminary micro results at discharge 11/27/20 09:00 Sputum Culture - Pending Sputum Gram Stain - Pending 11/27/20 08:01 Urine Culture - Pending Urine - Cath Molina Indwelling PENDING SALE TO [facility] Medical History Actinic keratosis Asthma Benign hypertension Carcinoma of left breast Invasive intraductal Chronic pruritus Cortical age-related cataract of both eyes Cortical age-related cataract of both eyes (12/19/16) Diabetes mellitus Diverticulosis Esophageal ulcer Essential hypertension Gastric ulcer Grade II internal hemorrhoids Hypercholesterolemia Hypermetropia Intention tremor Obesity Osteoarthritis Primary biliary cholangitis Primary osteoarthritis of left knee Synovial cyst of left popliteal space Torn rotator cuff (06/23/13) Repair rotator cuff by Dr. Kaden Escobedo 06-23-2013 Surgical History Biopsy of breast (04/18/17) benign breast tissue with cyst wall Colonoscopy - IV Sedation 10 + years ago- normal Colonoscopy - MAC (12/31/17) EGD - MAC (12/31/17) ganglion, left ankle Nuclear senile cataract Oseotomy (10/06/98) TONNY BILATERAL FEET Rotator Cuff Repair (06/23/13) Right with distal clavical excision Family History Mother , 88 Diabetes Essential hypertension Heart disease Hyperlipidemia Father , 63 Neoplasm BLADDER Sister Hyperlipidemia Breast cancer Brother Diabetes Essential hypertension Hyperlipidemia Neoplasm PROSTATE Prostate cancer Maternal Grandfather No problems noted. Paternal Grandfather No problems noted. Maternal Grandmother Diabetes Paternal Grandmother No problems noted. 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 Pets and animals: Yes Pets and animals: dog(s) Sexually active: No Do you think of yourself as: straight/heterosexual Current gender identity: female What is your relationship status?: How often do you talk on the phone with friends or family?: three or more times per week How often do you get together with friends or relatives?: twice per week How often do you attend pentecostal or moravian services?: decline to answer Do you belong to any clubs or organized social groups?: no Panel score (0-1 are the most socially isolated patients): 1 What type of physical activity do you participate in: none Nhung/Cheondoism: No preference Special nhung needs: No Seatbelt use: always Drive intox or ride w/intox garbage collector driver: No
[2020-11-27 11:37] LABS: Bilirubin Negative (Negative); Blood Large (Negative); Clarity Cloudy (Clear); Glucose Negative (Negative); Ketones Trace mg/dL (Negative); Leukocyte Esterase Moderate (Negative); Nitrite Negative (Negative); Urobilinogen 0.2 EU/dL (Up TO 0.2)
--- NOTE | 2020-11-27 11:41 | DI.VRAD_ITS ---
PROCEDURE INFORMATION: Exam: XR Chest Exam date and time: 11/27/2020 1:24 AM Age: 85 years old Clinical indication: Other: Respiratory failure, status epilepticus TECHNIQUE: Imaging protocol: XR of the chest. Views: 1 view. COMPARISON: CR XR PORTABLE CHEST AP POST LINE 11/27/2020 12:11 AM FINDINGS: Tubes, catheters and devices: Endotracheal tube tip 2.5 cm from miriam. Nasogastric tube coiled within the body of the stomach. Left-sided central venous catheter tip SVC. Lungs: Improved but not complete resolution previously noted interstitial edema. Pleural spaces: Unremarkable. No pleural effusion. No pneumothorax. Heart/Mediastinum: Unremarkable. No cardiomegaly. Bones/joints: Unremarkable. IMPRESSION: 1. Tubes and lines as described. 2. Improving interstitial edema. Dictated and Authenticated by: Delon Deal MD. Ordering:[facility] Ambika Russell MD
--- NOTE | 2020-12-01 09:25 | INDS_ITS ---
Date of service: 12/01/20 Time of Service: 09:25 PT Notes Visit Reasons: acute confusional state Treatment Dates: 11/26/2020 - 11/27/2020 Referring Doctor: Abel Guzmán MD PT Orders: PT CONSULT: Eval/treat Precautions: Fall. Standard. Activity as tolerated. THIS DOCUMENT SERVES A SUMMARY OF CARE. NO PT SERVICES WERE PROVIDED ON THIS DATE. Patient Profile/Admitting Diagnosis: Elina is an 85-year-old female who presented to the ED on 11/25/2020 with altered mental status and recent slurring of speech accompanied by bilateral lower extremity weakness. She was found on the floor by family members with evidence of head trauma due to dried blood found in her naris. Patient is diagnosed with hypokalemia, bilateral lower extremity edema, primary biliary cholangitis, hypercholesterolemia, and acute confusional state. COVID-19 positive back in July 2020. She received 2 sessions of PT intervention during her stay, after which she was transferred to the ICU, then to [facility] [place]. PMHX: Medical History Actinic keratosis Asthma Benign hypertension Carcinoma of left breast Invasive intraductal Chronic pruritus Cortical age-related cataract of both eyes Cortical age-related cataract of both eyes (12/19/16) Diabetes mellitus Diverticulosis Esophageal ulcer Essential hypertension Gastric ulcer Grade II internal hemorrhoids Hypercholesterolemia Hypermetropia Intention tremor Obesity Osteoarthritis Primary biliary cholangitis Primary osteoarthritis of left knee Synovial cyst of left popliteal space Torn rotator cuff (06/23/13) Repair rotator cuff by Dr. Kaden Escobedo 06-23-2013 Surgical History Biopsy of breast (04/18/17) benign breast tissue with cyst wall Colonoscopy - IV Sedation 10 + years ago- normal Colonoscopy - MAC (12/31/17) EGD - MAC (12/31/17) ganglion, left ankle Nuclear senile cataract Oseotomy (10/06/98) TONNY BILATERAL FEET Rotator Cuff Repair (06/23/13) Right with distal clavical excision Social History/Home Situation: Lives alone in a private home with a flight of steps to get into the house with rails on both sides. She states that she has an alternate entrance throughout with only 2 steps. Equipment Owned/DME: Front wheeled walker Subjective:none obtained, as patient was transferred for further medical care Objective: ROM: Right Upper Extremity: Shoulder Flexion WFL. Shoulder abduction WFL. Shoulder ER/IR WFL. Elbow flexion WFL. Forearm pronation/supination WFL. Wrist flexion WFL. Opening and closing of hand WFL. Left Upper Extremity: Shoulder Flexion WFL. Shoulder abduction WFL. Shoulder ER/IR WFL. Elbow flexion WFL. Forearm pronation/supination WFL. Wrist flexion WFL. Opening and closing of hand WFL. Right Lower Extremity: Hip flexion lacks the last 25% of available range. Hip abduction lacks the last 25% of available range. Hip ER/IR lacks the last 25% of available Red. Knee flexion lacks the last 25% of available range. Knee extension. Ankle dorsiflexion/eversion WFL. Ankle plantarflexion/inversion WFL. Left Lower Extremity: Hip flexion lacks the last 25% of available range. Hip abduction lacks the last 25% of available range. Hip ER/IR lacks the last 25% of available Red. Knee flexion lacks the last 25% of available range. Knee extension. Ankle dorsiflexion/eversion WFL. Ankle plantarflexion/inversion WFL. Strength: Right Upper Extremity: Shoulder flexors 4/5. Shoulder abductors 4/5. Shoulder ER 4/5. Shoulder IR 4/5. Forearm pronators 4/5. Forearm supinators 4/5. Elbow flexors 4/5. Elbow extensors 4/5. Building Wrecker strong. Left Upper Extremity: Shoulder flexors 4/5. Shoulder abductors 4/5. Shoulder ER 4/5. Shoulder IR 4/5. Forearm pronators 4/5. Forearm supinators 4/5. Elbow flexors 4/5. Elbow extensors 4/5. Building Wrecker strong. Right Lower Extremity: Hip flexors 3-/5. Hip abductors 3-/5. Hip external rotators 3-/5. Hip internal rotators 3-/5. Knee flexors 3-/5. Knee extensors 4- /5. Ankle dorsiflexors/evertors 4/5. Ankle plantarflexors/invertors 4/5. Left Lower Extremity: Hip flexors 3-/5. Hip abductors 3-/5. Hip external rotators 3-/5. Hip internal rotators 3-/5. Knee flexors 3-/5. Knee extensors 4- /5. Ankle dorsiflexors/evertors 4/5. Ankle plantarflexors/invertors 4/5. Bed Mobility/Transfers: Sit to stand: supervision Stand to sit: supervision Bed to bedside commode standby assist Bedside commode to bed standby assist Bed to chair standby assist Chair to bed standby assist Gait: Patient demonstrated ability to ambulate up to 300 feet requiring standby assist with wide base of support and increased out toeing in bilateral lower extremities. Jie decreased. Step height decreased. Step length decreased. Reported fatigue after activity. Balance: Static Sitting: Normal Dynamic Sitting: Normal Static Standing: Good Dynamic Standing: Fair Assessment:Patient participated in 2 PT sessions during her acute care stay. She was then transferred to [facility] [place] further medical care. Subsequently discharged from PT in acute care setting, with recommendation for further PT once medically appropriate. Goals: Goals X1 week 1. Supine-Sit independent (NOT MET) 2. Sit-Supine independent (NOT MET) 3. Sit-Stand independent (NOT MET) 4. Stand-Sit independent (NOT MET) 5. Bed-Chair independent (NOT MET) 6. Chair-Bed independent (NOT MET) 7. Independent gait on level surface with use of no assistive device for at least 1000 feet without report of pain nor dyspnea (NOT MET) 8. Independent stair negotiation while holding onto B rails for at least 12 steps without report of pain nor dyspnea (NOT MET) 9. Good static and dynamic standing balance/tolerance (NOT MET) Plan of Care/Treatment Plan: D/C from PT in acute care setting. DISCHARGE RECOMMENDATIONS: discharged to [facility] TREATMENT CODE/TIME: No treatment provided on this date Linda Manley, PT, DPT [facility] [place], [place]
== END 2020-11-27 13:15 | disposition short-term general hospital (02) | DRG 100 ==
LOC: ER 16:30 → MS 17:24 → ICU 11-26 19:17 → MS 11-27 08:38
PROVIDERS: Internal Medicine; Admitting Provider Family Medicine; Emergency Provider Student in an Organized Health Care Education/Training Program; PCP Nurse Practitioner Family; Visit Provider Family Medicine
DX: G40.401 Other generalized epilepsy and epileptic syndromes, not intractable, with status epilepticus (principal); J96.00 Acute respiratory failure, unspecified whether with hypoxia or hypercapnia; J69.0 Pneumonitis due to inhalation of food and vomit; G93.40 Encephalopathy, unspecified; E87.6 Hypokalemia; R60.0 Localized edema; C50.912 Malignant neoplasm of unspecified site of left female breast; Z17.0 Estrogen receptor positive status [ER+]; E78.00 Pure hypercholesterolemia, unspecified; I10 Essential (primary) hypertension; E11.9 Type 2 diabetes mellitus without complications; K74.3 Primary biliary cirrhosis; E78.5 Hyperlipidemia, unspecified; J45.909 Unspecified asthma, uncomplicated; K64.1 Second degree hemorrhoids; Z87.891 Personal history of nicotine dependence; Z79.84 Long term (current) use of oral hypoglycemic drugs; D64.9 Anemia, unspecified; Z86.16 Personal history of COVID-19; Z20.822 Contact with and (suspected) exposure to COVID-19; I95.9 Hypotension, unspecified
CPT/HCPCS: 31500; 94002; 36573; 36415; 36556; 71045; 80053; 82550; 82805; 84145; 87635; 93005; 95714; 95720; 96365; 96366; 97110; 97162; 97530; 99285; 36600; 70450; 70551; 71046; 72125; 72170; 81003; 81015; 83735; 83880; 84484; 85025; 87070; 87086; 87205; 93010; 94003; 99223; 99233; 99291; J1953; J2060; J2250; J2543; J3480

== ENCOUNTER → 2020-11-26 08:00 | Outpatient (BNVA) | payer MEDICARE, SELFPAY | PROVIDERS: PCP Nurse Practitioner Family; Referring Provider Nurse Practitioner Family; Visit Provider Psychiatry & Neurology Neurology ==

== ENCOUNTER 2021-01-05 11:10 | Outpatient (CLI) | payer MEDICARE, SELFPAY ==
[2021-01-05 12:22] LABS: HCT 31.1 % (36.0-46.0); HGB 10.1 g/dL (11.2-15.7); MCH 28.4 pg (27.0-33.0); MCHC 32.5 % (32.0-36.0); MCV 87.4 fL (80-95); MPV 12.1 fL (8.0-11.0); Platelet Count 179 10^3/uL (130-400); RBC 3.56 10^6/uL (3.93-5.22); RDW 19.5 % (11.7-14.6); RDW-SD 60.7 fL; WBC 8.12 10^3/uL (4.4-10.8)
[2021-01-05 13:02] LABS: ALT 65 U/L (14-59); AST 131 U/L (15-37); Albumin 2.3 g/dL (3.4-5.0); Alkaline Phosphatase 192 U/L (46-116); Anion Gap 10.2 mmol/L (3-11); BUN 11 mg/dL (7-18); Bilirubin, Total 1.6 mg/dL (0.2-1.0); CO2 27.8 mmol/L (21.0-32.0); CREATININE 0.8 mg/dL (0.55-1.02); Calculated LDL 50 mg/dL (<100); Chloride 107 mmol/L (98-107); Cholesterol 84 mg/dL (<200); Glucose 152 mg/dL (74-106); HDL Cholesterol 25 mg/dL (40-60); Potassium 3.6 mmol/L (3.5-5.1); Sodium 145 mmol/L (136-145); Total Protein 6.4 g/dL (6.4-8.2); Triglyceride 46 mg/dL (<150)
[2021-01-05 13:09] LABS: Calcium 8.6 mg/dL (8.5-10.1)
== END 2021-01-05 11:11 | disposition home or self-care (01) ==
LOC: LOS 11:11
PROVIDERS: PCP Nurse Practitioner Family; Referring Provider Nurse Practitioner Family; Visit Provider Nurse Practitioner Family
DX: I10 Essential (primary) hypertension (principal)
CPT/HCPCS: 36415; 80053; 80061; 85027

== ENCOUNTER → 2021-01-11 11:09 | Outpatient (BNVA) | payer MEDICARE, SELFPAY | PROVIDERS: PCP Nurse Practitioner Family; Referring Provider Nurse Practitioner Family; Visit Provider Psychiatry & Neurology Neurology | DX: G40.901 Epilepsy, unspecified, not intractable, with status epilepticus (principal); I10 Essential (primary) hypertension; E11.9 Type 2 diabetes mellitus without complications | CPT/HCPCS: 99215; G2212 ==

== ENCOUNTER 2021-01-26 02:39 | Outpatient (CLI) | payer MEDICARE, SELFPAY | END 2021-01-26 02:40 | disposition home or self-care (01) | PROVIDERS: PCP Nurse Practitioner Family; Visit Provider Nurse Practitioner Family | DX: E87.6 Hypokalemia (principal) | CPT/HCPCS: 36415; 84132 ==

== ENCOUNTER 2021-02-10 03:15 | Outpatient (CLI) | payer MEDICARE, SELFPAY ==
[2021-02-10 13:32] LABS: Ferritin 33 ng/mL (8-252); Potassium 3.4 mmol/L (3.5-5.1)
[2021-02-10 13:44] LABS: Iron 43 ug/dL (50-170); Total Iron Binding Capacity 344 ug/dL (250-450); Transferrin Sat 13 % (15-50)
[2021-02-11 08:55] LABS: Transferrin 260 mg/dL (201-352)
== END 2021-02-10 03:16 | disposition home or self-care (01) ==
LOC: LOS 03:15
PROVIDERS: PCP Nurse Practitioner Family; Visit Provider Nurse Practitioner Family
DX: E11.9 Type 2 diabetes mellitus without complications (principal); E87.6 Hypokalemia
CPT/HCPCS: 36415; 82728; 83540; 83550; 84132; 84466

== ENCOUNTER 2021-02-25 02:54 | Outpatient (CLI) | payer MEDICARE, SELFPAY ==
--- NOTE | 2021-02-25 | DI.MAMMO_ITS ---
Exam(s) MG MAMMO SCREENING 60 MIN DUR EXAM: MG MAMMO SCREENING 60 MIN DUR CLINICAL HISTORY: SCREENING, PERSONAL H/O BREAST CA,Z12.31,C50.911,Z17.0 TECHNIQUE: Bilateral full field digital CC and MLO mammographic images were obtained with 3D tomosyn thesis and utilizing computer aided detection (CAD). COMPARISON: Available for comparison. The patient reports interim weight loss. FINDINGS: Masses/Architectural Distortion: Status post left lumpectomy. Microcalcifications: No suspicious pleomorphic-type are seen. Skin Thickening/Nipple Retraction: There is bilateral skin thickening present, left greater than righ t. IMPRESSION: 1. No significant interval change with no specific features of malignancy noted. Bilateral skin thick ening. 2. Unless there is more urgent need, screening mammography is recommended, as per [employer] guidelines. BI-RADS Category 2 - Benign Findings Breast Density - Category B - Scattered areas of fibroglandular density Breast density category C or D implies that the patient has dense breast tissue. Dense breast tissue is very common and is not abnormal but dense breast tissue can make it harder to find cancer on a ma mmogram. Also, dense breast tissue may increase their breast cancer risk. This information about the result of the mammogram report was provided to the patient to raise their awareness. Use this report when you speak with the patient about their risks for breast cancer, which includes their family hist ory. At that time, you may recommend for more screening tests (Ultrasound or MRI) as they might be us eful based on their risk. A negative radiographic report should not delay biopsy if a dominant or clinically suspicious mass is present. Up to ten percent of cancers are not identified on mammography. A negative report may reinforce clinical impression. Adenosis and dense breasts may obscure an underlying neoplasm. False positive reports average 6 to 10%. Patient will receive a letter notifying them of these results.
== END 2021-02-25 03:14 ==
PROVIDERS: PCP Nurse Practitioner Family; Visit Provider Internal Medicine Hematology & Oncology
DX: Z12.31 Encounter for screening mammogram for malignant neoplasm of breast (principal); Z85.3 Personal history of malignant neoplasm of breast
CPT/HCPCS: 77063; 77067

== ENCOUNTER 2021-03-03 01:53 | Outpatient (CLI) | payer MEDICARE, SELFPAY ==
[2021-03-03 13:07] LABS: Potassium 3.3 mmol/L (3.5-5.1)
== END 2021-03-03 01:54 | disposition home or self-care (01) ==
LOC: LBO 01:53
PROVIDERS: PCP Nurse Practitioner Family; Visit Provider Nurse Practitioner Family
DX: E87.6 Hypokalemia (principal)
CPT/HCPCS: 36415; 84132

== ENCOUNTER 2021-03-23 02:18 | Outpatient (CLI) | payer MEDICARE, SELFPAY ==
--- NOTE | 2021-03-23 | DI.DEXA_ITS ---
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 COMPARISON: Prior DEXA scan performed November 2018 FINDINGS: Performed on a [employer] unit. Lateral image: No compression fracture evident. Lumbar Spine total T-score: -0.3. Prior 2019 reading was -0.1 Hip total T-score:-1.3. Prior 2019 reading was -0.2 Independent reading at the level of the femoral neck yields at T-score of -0.7. Forearm total T-score: -2.4. Prior 2019 reading was -1.5 IMPRESSION: Bone mineral density measures in the osteopenia range. Fracture risk is moderate. Note: Any spine fracture indicates 5x risk for subsequent spine fracture and 2x risk for subsequent h ip fracture. World Health Organization criteria for BMD interpretation classify patients: Normal...... T- Score at or above -1.0 Osteopenic... T- Score between -1.0 and -2.5 Osteoporosis... T-Score at or below -2.5
[2021-03-23 10:44] LABS: Abs Immature Grans 0.01 10^3/uL (0.0-0.06); Absolute Basophil Count 0.07 10^3/uL (0.0-0.2); Absolute Eosinophil Count 0.29 10^3/uL (0.0-0.7); Absolute Lymphocyte Count 1.36 10^3/uL (1.2-3.4); Basophils % 0.9; Eosinophils % 3.8; HCT 30.1 % (36.0-46.0); HGB 9.5 g/dL (11.2-15.7); Immature Grans % 0.1; Lymphocytes % 17.8; MCH 28.2 pg (27.0-33.0); MCHC 31.6 % (32.0-36.0); MCV 89.3 fL (80-95); MPV 11.2 fL (8.0-11.0); Monocytes % 11.8; Neutrophils % 65.6; Nucleated RBC 0 %; Platelet Count 174 10^3/uL (130-400); RBC 3.37 10^6/uL (3.93-5.22); RDW 17.8 % (11.7-14.6); RDW-SD 57.6 fL; WBC 7.63 10^3/uL (4.4-10.8)
[2021-03-23 10:56] LABS: ALT 42 U/L (14-59); AST 74 U/L (15-37); Albumin 2.1 g/dL (3.4-5.0); Alkaline Phosphatase 236 U/L (46-116); Anion Gap 4.7 mmol/L (3-11); BUN 16 mg/dL (7-18); Bilirubin, Total 1.1 mg/dL (0.2-1.0); CO2 30.3 mmol/L (21.0-32.0); CREATININE 0.7 mg/dL (0.55-1.02); Calcium 8.5 mg/dL (8.5-10.1); Chloride 108 mmol/L (98-107); Glucose 89 mg/dL (74-106); Potassium 3.8 mmol/L (3.5-5.1); Sodium 143 mmol/L (136-145); Total Protein 6.7 g/dL (6.4-8.2)
== END 2021-03-23 02:38 ==
PROVIDERS: PCP Nurse Practitioner Family; Visit Provider Nurse Practitioner Family
DX: Z79.811 Long term (current) use of aromatase inhibitors (principal); C50.912 Malignant neoplasm of unspecified site of left female breast; R93.1 Abnormal findings on diagnostic imaging of heart and coronary circulation; M85.89 Other specified disorders of bone density and structure, multiple sites
CPT/HCPCS: 36415; 77080; 80053; 85025

== ENCOUNTER 2021-04-11 11:34 | Outpatient (CLI) | payer MEDICARE, SELFPAY ==
[2021-04-11 12:42] LABS: HCT 31.2 % (36.0-46.0); HGB 9.7 g/dL (11.2-15.7); MCH 28.4 pg (27.0-33.0); MCHC 31.1 % (32.0-36.0); MCV 91.2 fL (80-95); MPV 11.8 fL (8.0-11.0); Platelet Count 164 10^3/uL (130-400); RBC 3.42 10^6/uL (3.93-5.22); RDW 18.1 % (11.7-14.6); RDW-SD 60.1 fL; WBC 6.42 10^3/uL (4.4-10.8)
[2021-04-11 13:30] LABS: Iron 98 ug/dL (50-170); Total Iron Binding Capacity 378 ug/dL (250-450); Transferrin Sat 26 % (15-50)
[2021-04-11 13:44] LABS: Anion Gap 7.6 mmol/L (3-11); BUN 16 mg/dL (7-18); CO2 29.4 mmol/L (21.0-32.0); CREATININE 0.7 mg/dL (0.55-1.02); Calcium 8.8 mg/dL (8.5-10.1); Chloride 106 mmol/L (98-107); Ferritin 43 ng/mL (8-252); Glucose 76 mg/dL (74-106); Potassium 3.8 mmol/L (3.5-5.1); Sodium 143 mmol/L (136-145)
== END 2021-04-11 11:35 | disposition home or self-care (01) ==
LOC: LOS 11:35
PROVIDERS: PCP Family Medicine; Visit Provider Family Medicine
DX: E11.9 Type 2 diabetes mellitus without complications; D64.9 Anemia, unspecified; R60.9 Edema, unspecified
CPT/HCPCS: 36415; 80048; 85027; 82728; 83540; 83550

== ENCOUNTER 2021-05-18 21:00 | Inpatient (IN) | payer MEDICARE, SELFPAY ==
[2021-05-18] VITALS (26 sets, daily range): BP systolic 97–137; BP diastolic 38–61; PULSE 85–112; RESP 13–23; TEMP 37.3–38.2; O2SAT 89–92
--- NOTE | 2021-05-18 20:45 | RT.EKG_ITS ---
APPROVED REPORT Exam: Resting ECG Reason for Exam: short of breath Patient Location: E HR:101 bpm ECG Measurements Heart Rate 101 AXIS IL 196 P 65 QRSd 86 QRS 28 QT 345 T 46 QTc 448 Conclusion Sinus tachycardia...rate> 99 Left atrial enlargement...P, P'>60mS, <-0.15mV V1. Sinus. No STEMI. I have reviewed and interpreted ECG and agree with software generated interpretation.
--- NOTE | 2021-05-18 21:00 | DI.RAD_ITS ---
Exam(s) XR PORTABLE CHEST AP EXAM: XR PORTABLE CHEST AP CLINICAL HISTORY: fever/ams. TECHNIQUE: 2D digital imaging was performed. COMPARISON: CR XR CHEST 2V PA LATERAL from 11/25/2020 CR XR CHEST 2V PA LATERAL from 11/25/2020 CR,XR XR PORTABLE CHEST AP from 11/27/2020 . patient was intubated at that time. FINDINGS: Heart size is upper normal. The mediastinum is not widened. Elevated right hemidiaphragm is again noted. Increased bilateral interstitial markings in both lung coe again noted. However, this appears sli ghtly increased from the prior study. There are no obvious pleural effusions. Surgical clips are ag ain noted in the left axilla. IMPRESSION: Mild interstitial infiltrates and/or edema. DATA REPOSITORY: RADIATION DOSE DELIVERED: All CT scans at this facility use at least one of these dose optimization techniques: automated exposure control; mA and/or kV adjustment per patient size (includes targeted e xams where dose is matched to clinical indication); or iterative reconstruction.
[2021-05-18] MEDS: Acetaminophen 650 MG SUPP (21:10)
--- NOTE | 2021-05-18 21:15 | DI.CT_ITS ---
Exam(s) CT HEAD WO EXAM: CT HEAD WO CLINICAL HISTORY: Altered mental status TECHNIQUE: Imaging Protocol: Axial computed tomography images with coronal and sagittal reformatted images were created and reviewed COMPARISON: CT CT HEAD CERVICAL SPINE WO from 11/25/2020 FINDINGS: There are no skull fractures nor fluid in the visualized paranasal sinuses. There is no evidence of intracranial hemorrhage, mass effect, or shift of midline structures. There are no extra-axial fluid collections. The ventricles are not enlarged or shifted and there is no blo od within the ventricular system nor within the basal cisterns. IMPRESSION: No acute intracranial findings on this noninfused CT scan of the brain. RADIATION DOSE DELIVERED: 697.22mGy.cm Total DLP DATA REPOSITORY: All CT scans at this facility are submitted to the National Radiology Data Registry (NRDR) Dose Index Registry (DIR) with the [employer] (A[employer]). RADIATION OPTIMIZATION: All CT scans at this facility use at least one of these dose optimization te chniques: automated exposure control; mA and/or kV adjustment per patient size (includes targeted exa ms where dose is matched to clinical indication); or iterative reconstruction.
--- NOTE | 2021-05-18 21:27 | ED.GENADUL_ITS ---
Discharge Plan Disposition Patient Disposition: [facility] INPATIENT Condition: Serious Discharge Details Clinical Impression: AMS (altered mental status), Elevated troponin, Febrile illness Primary Care Provider: Jose Humphrey ED Provider: Drew Granados Home Meds and New Rx's Prescriptions: No Action ibuprofen 600 mg tablet 600 mg PO TID PRN (Reason: pain) Qty: 90 RF: 3 ursodiol 300 mg capsule 300 mg PO TID RF: 0 anastrozole [Arimidex] 1 mg tablet 1 mg PO DAILY RF: 0 albuterol sulfate [ProAir HFA] 90 mcg/actuation HFA aerosol inhaler 1 puff Inhalation Q6H PRN Qty: 3 RF: 4 levetiracetam 1,000 mg tablet 1,000 mg PO BID Qty: 180 RF: 3 cholecalciferol (vitamin D3) [Vitamin D3] 2,000 UNIT capsule 1,000 unit PO DAILY RF: 0 magnesium amino acid chelate 100 MG tablet 133 mg PO DAILY RF: 0 (DME) blood-glucose meter [FreeStyle Lite Meter] 1 EACH kit 1 ea Miscellaneous DAILY Qty: 1 RF: 0 (DME) FreeStyle Lite Strips Strip 1 ea Miscellaneous DAILY Qty: 100 RF: 5 (DME) lancets [FreeStyle Lancets] 28 gauge misc 1 ea Miscellaneous DAILY Qty: 100 RF: 6 metformin 500 mg tablet 500 mg PO BID Qty: 180 RF: 4 ferrous sulfate 325 mg (65 mg iron) tablet 325 mg PO Q OTHER DAY Qty: 45 RF: 3 potassium chloride 10 mEq tablet extended release 10 meq PO DAILY Qty: 90 RF: 3 atorvastatin 40 mg tablet 40 mg PO DAILY Qty: 90 RF: 3 furosemide 20 mg tablet 20 mg PO DAILY Qty: 90 RF: 3 benzonatate 100 mg capsule 100 mg PO TID PRN (Reason: cough) Qty: 30 RF: 0 ibuprofen [Advil] 200 MG tablet 400 mg PO PRN PRNRF: 0 Medical Decision Making 86-year-old female with complicated past medical history found lying on the bathroom floor by her family with an altered mental status this morning around 8 AM. Patient is awake and alert, oriented to self, is able to answer some questions appropriately and follows some commands. She is unable to give a very detailed HPI. I was able to speak with her son Chon. Patient is a full code. She presents tachycardic and febrile. Will obtain IV access, give IV fluid, rectal Tylenol and initiate a septic work-up including a head CT given her altered mental status. Laboratory values reveal no evidence of leukocytosis. Hemoglobin is 9.9 hematocrit 30.8 platelet count 136. ESR 80 INR 1.3 lactate 2.0 electrolytes unremarkable, creatinine 0.7 with a GFR greater than 60. Glucose 122 calcium 8.4 total bili 1.7, AST 113 alk phosphatase 196, creatinine kinase 444 troponin 0 0.07 CRP 2.41. Procalcitonin 0.3. Urine reveals trace leukoesterase with 10- 20 white cells. Negative Covid Patient will be given a full dose aspirin given her elevated troponin. Denies any chest pain. EKG not consistent with ischemia. She will be given 1 g IV Rocephin given her 10-20 white cells in her urine. Chest x-ray infiltrate versus edema CT imaging of the brain reveals possible early ischemic changes in the left occipital lobe. Patient with multiple abnormal findings on her examination including elevated troponin, abnormal CT of the brain, potential pneumonia, potential UTI. She is no longer febrile. Heart rate is now in the high 90s. Clinically she appears more lucid. I will discuss the case with our hospitalist team to admit the patient to our facility for observation, serial troponin, IV antibiotics, MRI tomorrow, further work-up of her ongoing symptoms Case discussed with Dr. Guzmán who is agreeable to admission and will write admission orders Medical Records Medical records reviewed: Yes I reviewed the patient's medical records. Imaging Data Radiologic Study: Attestation: I personally reviewed and interpreted this imaging study as follows: Imaging: CT Scan Radiologist's impression: PROCEDURE INFORMATION: Exam: CT Head Without Contrast Exam date and time: 05/18/2021 9:24 PM Age: 86 years old Clinical indication: Other: AMS TECHNIQUE: Imaging protocol: Computed tomography of the head without contrast. Other technique: STROKE PROTOCOL was implemented. COMPARISON: MR BRAIN WO 11/26/2020 12:12 PM FINDINGS: Brain: Negative for intraparenchymal hemorrhage. Negative for loss of martin-white differentiation in the middle cerebral artery territories. There is mild low-attenuation and sulcal effacement in the posterior left occipital lobe, a 3 cm region. Please see guest relations representative axial image 76 series 5 and coronal image 91 series 7. The patient is obliquely positioned for the exam, and asymmetric streak artifact from the skull may contribute to the finding. The cerebellum and brainstem are unremarkable. Extra-axial space: No evidence of subdural hemorrhage. Cerebral ventricles: No ventriculomegaly. Paranasal sinuses: Visualized sinuses are unremarkable. No fluid levels. Mastoid air cells: Visualized mastoid air cells are well aerated. Bones/joints: Negative for skull fracture. Negative for focal bony lesion. Soft tissues: Unremarkable. IMPRESSION: 1. Negative for intracranial hemorrhage. 2. Unremarkable middle cerebral artery territory. 3. Possible early ischemic changes in the left occipital lobe. Lab Data Lab results reviewed: Yes I reviewed the patient's lab results. Labs: 05/18/21 21:45 Blood Blood Culture - Pending 05/18/21 21:15 Urine - Reflex from Ua Urine Culture - Pending 05/18/21 21:10 Blood Blood Culture - Pending Laboratory Tests Range/Units 05/18/21 05/18/21 05/18/21 21:10 21:15 21:30 WBC (4.4-10.8) 10^3/uL RBC (3.93-5.22) 10^6/uL Hgb (11.2-15.7) g/dL Hct (36.0-46.0) % MCV (80-95) fL MCH (27.0-33.0) pg MCHC (32.0-36.0) % RDW (11.7-14.6) % Plt Count (130-400) 10^3/uL MPV (8.0-11.0) fL Immature Gran % Neutrophils % Lymphocytes % Atypical Lymphs % Monocytes % Eosinophils % Basophils % Myelocytes % Nucleated RBC % % Absolute Neutrophils (1.2-6.7) 10^3/uL Absolute Lymphocytes (1.2-3.4) 10^3/uL Absolute Monocytes (0.1-0.8) 10^3/uL Absolute Eosinophils (0.0-0.7) 10^3/uL Absolute Basophils (0.0-0.2) 10^3/uL RBC Morphology ESR (0-30) mm/hr PT (9.3-11.0) sec INR (0.9-1.1) VBG Lactate (0.6-1.4) mmol/L Sodium (136-145) mmol/L Potassium (3.5-5.1) mmol/L Chloride (98-107) mmol/L Carbon Dioxide (21.0-32.0) mmol/L Anion Gap (3-11) mmol/L BUN (7-18) mg/dL Creatinine (0.55-1.02) mg/dL Estimated GFR/1.73 m2 (mL/min/1.73m2) Glucose (74-106) mg/dL Calcium (8.5-10.1) mg/dL Magnesium (1.8-2.4) mg/dL Total Bilirubin (0.2-1.0) mg/dL AST (15-37) U/L ALT (14-59) U/L Alkaline Phosphatase (46-116) U/L Creatine Kinase (26-192) U/L Troponin I (<0.06) ng/mL C-Reactive Protein (0.0-0.3) mg/dL Total Protein (6.4-8.2) g/dL Albumin (3.4-5.0) g/dL Procalcitonin ng/mL 0.3 Urine Color (Yellow) Yellow Urine Clarity (Clear) Sl Cloudy Urine pH (5-8) 6.5 Ur Specific [place] (1.005-1.025) 1.025 Urine Protein (Negative) mg/dL 30 H Urine Ketones (Negative) mg/dL Negative Urine Blood (Negative) Trace-intact H Urine Nitrite (Negative) Negative Urine Bilirubin (Negative) Negative Urine Urobilinogen (Up TO 0.2) EU/dL 1.0 H Ur Leukocyte Esterase (Negative) Trace H Urine RBC (0-2) HPF 0-2 Urine WBC (0-5) HPF 10-20 H Ur Epithelial Cells (Negative) HPF Rare Urine Crystals (Negative) HPF Negative Urine Bacteria (Negative) HPF Many Urine Casts (Negative) LPF Negative Urine Mucus (Negative) Negative Ur Culture Indicated? Yes Urine Glucose (Negative) mg/dL Negative COVID-19 Source Nasal/Nares SARS-CoV-2 (PCR) (Negative) Negative Range/Units 05/18/21 05/18/21 05/18/21 21:30 21:30 21:30 WBC (4.4-10.8) 10^3/uL 8.98 RBC (3.93-5.22) 10^6/uL 3.59 L Hgb (11.2-15.7) g/dL 9.9 L Hct (36.0-46.0) % 30.8 L MCV (80-95) fL 85.8 MCH (27.0-33.0) pg 27.6 MCHC (32.0-36.0) % 32.1 RDW (11.7-14.6) % 16.2 H Plt Count (130-400) 10^3/uL 136 MPV (8.0-11.0) fL 11.0 Immature Gran % 0.0 Neutrophils % 78.0 Lymphocytes % 9.0 Atypical Lymphs % 3 Monocytes % 7.0 Eosinophils % 2.0 Basophils % 0.0 Myelocytes % 1 Nucleated RBC % % 0 Absolute Neutrophils (1.2-6.7) 10^3/uL 7.00 H Absolute Lymphocytes (1.2-3.4) 10^3/uL 1.08 L Absolute Monocytes (0.1-0.8) 10^3/uL 0.63 Absolute Eosinophils (0.0-0.7) 10^3/uL 0.18 Absolute Basophils (0.0-0.2) 10^3/uL 0.00 RBC Morphology Normal ESR (0-30) mm/hr PT (9.3-11.0) sec INR (0.9-1.1) VBG Lactate (0.6-1.4) mmol/L 2.0 H Sodium (136-145) mmol/L 136 Potassium (3.5-5.1) mmol/L 3.5 Chloride (98-107) mmol/L 100 Carbon Dioxide (21.0-32.0) mmol/L 26.7 Anion Gap (3-11) mmol/L 9.3 BUN (7-18) mg/dL 19 H Creatinine (0.55-1.02) mg/dL 0.7 Estimated GFR/1.73 m2 (mL/min/1.73m2) >= 60.00 Glucose (74-106) mg/dL 122 H Calcium (8.5-10.1) mg/dL 8.4 L Magnesium (1.8-2.4) mg/dL 1.9 Total Bilirubin (0.2-1.0) mg/dL 1.7 H AST (15-37) U/L 113 H ALT (14-59) U/L 55 Alkaline Phosphatase (46-116) U/L 196 H Creatine Kinase (26-192) U/L Troponin I (<0.06) ng/mL 0.07 H C-Reactive Protein (0.0-0.3) mg/dL 2.41 H Total Protein (6.4-8.2) g/dL 7.0 Albumin (3.4-5.0) g/dL 2.3 L Procalcitonin ng/mL Urine Color (Yellow) Urine Clarity (Clear) Urine pH (5-8) Ur Specific [place] (1.005-1.025) Urine Protein (Negative) mg/dL Urine Ketones (Negative) mg/dL Urine Blood (Negative) Urine Nitrite (Negative) Urine Bilirubin (Negative) Urine Urobilinogen (Up TO 0.2) EU/dL Ur Leukocyte Esterase (Negative) Urine RBC (0-2) HPF Urine WBC (0-5) HPF Ur Epithelial Cells (Negative) HPF Urine Crystals (Negative) HPF Urine Bacteria (Negative) HPF Urine Casts (Negative) LPF Urine Mucus (Negative) Ur Culture Indicated? Urine Glucose (Negative) mg/dL COVID-19 Source SARS-CoV-2 (PCR) (Negative) Range/Units 05/18/21 05/18/21 05/18/21 21:30 21:30 21:30 WBC (4.4-10.8) 10^3/uL RBC (3.93-5.22) 10^6/uL Hgb (11.2-15.7) g/dL Hct (36.0-46.0) % MCV (80-95) fL MCH (27.0-33.0) pg MCHC (32.0-36.0) % RDW (11.7-14.6) % Plt Count (130-400) 10^3/uL MPV (8.0-11.0) fL Immature Gran % Neutrophils % Lymphocytes % Atypical Lymphs % Monocytes % Eosinophils % Basophils % Myelocytes % Nucleated RBC % % Absolute Neutrophils (1.2-6.7) 10^3/uL Absolute Lymphocytes (1.2-3.4) 10^3/uL Absolute Monocytes (0.1-0.8) 10^3/uL Absolute Eosinophils (0.0-0.7) 10^3/uL Absolute Basophils (0.0-0.2) 10^3/uL RBC Morphology ESR (0-30) mm/hr 80 H PT (9.3-11.0) sec 13.3 H INR (0.9-1.1) 1.3 H VBG Lactate (0.6-1.4) mmol/L Sodium (136-145) mmol/L Potassium (3.5-5.1) mmol/L Chloride (98-107) mmol/L Carbon Dioxide (21.0-32.0) mmol/L Anion Gap (3-11) mmol/L BUN (7-18) mg/dL Creatinine (0.55-1.02) mg/dL Estimated GFR/1.73 m2 (mL/min/1.73m2) Glucose (74-106) mg/dL Calcium (8.5-10.1) mg/dL Magnesium (1.8-2.4) mg/dL Total Bilirubin (0.2-1.0) mg/dL AST (15-37) U/L ALT (14-59) U/L Alkaline Phosphatase (46-116) U/L Creatine Kinase (26-192) U/L 444 H Troponin I (<0.06) ng/mL C-Reactive Protein (0.0-0.3) mg/dL Total Protein (6.4-8.2) g/dL Albumin (3.4-5.0) g/dL Procalcitonin ng/mL Urine Color (Yellow) Urine Clarity (Clear) Urine pH (5-8) Ur Specific [place] (1.005-1.025) Urine Protein (Negative) mg/dL Urine Ketones (Negative) mg/dL Urine Blood (Negative) Urine Nitrite (Negative) Urine Bilirubin (Negative) Urine Urobilinogen (Up TO 0.2) EU/dL Ur Leukocyte Esterase (Negative) Urine RBC (0-2) HPF Urine WBC (0-5) HPF Ur Epithelial Cells (Negative) HPF Urine Crystals (Negative) HPF Urine Bacteria (Negative) HPF Urine Casts (Negative) LPF Urine Mucus (Negative) Ur Culture Indicated? Urine Glucose (Negative) mg/dL COVID-19 Source SARS-CoV-2 (PCR) (Negative) ECG Data Attestation: I personally reviewed and interpreted this ECG (s) as follows: Interpretation: Please see official report by Dr. Whitman. Sinus tachycardia, ventricular rate of 101, no STEMI HPI General Mode of arrival: EMS . Date/Time Provider Initiated Documentation: 05/18/21 21:15 . Limitations to Documentation: altered mental status . Information obtained by: patient, family (Son Chon) and EMS . HPI Narrative: This is a 86-year-old female presenting via EMS for altered mental status. Patient is altered, rather vague and poor historian, most of history obtained through EMS and her son Chon. Patient maricarmen Givens, cell phone [phone] reports that his mother is a full code, does not have a power of claim attorney. She has had a steady decline since July when initially diagnosed with Covid. States that she lives at home alone just a [place] miles down the road from him. Apparently yesterday the patient sister brought her into town and she received her first Covid vaccine. This morning she did not answer her phone and when family went to her house around 8 AM she was on the floor in the bathroom, unsur e exactly how long she had been there for family noted that throughout the day today she seemed altered intermittently and a fever of up to 103 was noted. Patient with a past medical history that is fairly complicated and includes asthma, hypertension, diabetes, seizures, encephalopathy, chronic bilateral lower extremity edema. Related Data Home Medications Medication Instructions Recorded Confirmed cholecalciferol (vitamin D3) 1,000 unit PO DAILY 09/01/16 04/11/21 [Vitamin D3] magnesium amino acid chelate 133 mg PO DAILY 09/01/16 04/11/21 ibuprofen [Advil] 400 mg PO PRN PRN 12/22/16 04/11/21 blood-glucose meter [FreeStyle #1 kit 07/05/17 04/11/21 Lite Meter] ibuprofen 600 mg tablet 600 mg PO TID PRN #90 tab 09/09/19 04/11/21 anastrozole 1 mg tablet 1 mg PO DAILY 03/31/20 04/11/21 ursodiol 300 mg capsule 300 mg PO TID cap 03/31/20 04/11/21 FreeStyle Lancets 28 gauge #100 ea NS 06/15/20 04/11/21 blood sugar diagnostic #100 strip 06/15/20 04/11/21 albuterol sulfate 90 mcg/actuation 1 puff INHALATION Q6H PRN #3 puff 12/20/20 04/11/21 aerosol inhaler levetiracetam 1,000 mg tablet 1,000 mg PO BID #180 tab 01/11/21 04/11/21 metformin 500 mg tablet 500 mg PO BID #180 tab-cap 01/21/21 04/11/21 ferrous sulfate 325 mg (65 mg 325 mg PO Q OTHER DAY #45 tab 02/21/21 04/11/21 iron) tablet potassium chloride 10 mEq 10 meq PO DAILY #90 tab 04/12/21 tablet,extended release atorvastatin 40 mg tablet 40 mg PO DAILY #90 tab-cap 04/18/21 furosemide 20 mg tablet 20 mg PO DAILY #90 tab 04/18/21 benzonatate 100 mg capsule 100 mg PO TID PRN #30 cap 05/16/21 Previous Rx's Medication Instructions Recorded blood-glucose meter [FreeStyle #1 kit 07/05/17 Lite Meter] ibuprofen 600 mg tablet 600 mg PO TID PRN #90 tab 09/09/19 FreeStyle Lancets 28 gauge #100 ea NS 06/15/20 blood sugar diagnostic #100 strip 06/15/20 albuterol sulfate 90 mcg/actuation 1 puff INHALATION Q6H PRN #3 puff 12/20/20 aerosol inhaler levetiracetam 1,000 mg tablet 1,000 mg PO BID #180 tab 01/11/21 metformin 500 mg tablet 500 mg PO BID #180 tab-cap 01/21/21 ferrous sulfate 325 mg (65 mg 325 mg PO Q OTHER DAY #45 tab 02/21/21 iron) tablet potassium chloride 10 mEq 10 meq PO DAILY #90 tab 04/12/21 tablet,extended release atorvastatin 40 mg tablet 40 mg PO DAILY #90 tab-cap 04/18/21 furosemide 20 mg tablet 20 mg PO DAILY #90 tab 04/18/21 benzonatate 100 mg capsule 100 mg PO TID PRN #30 cap 05/16/21 Allergies Allergy/AdvReac Type Severity Reaction Status Date / Time bee venom protein (honey bee) Allergy Severe Anaphylaxsi Verified 04/11/21 10:52 s hornet venom Allergy Severe Anaphylaxsi Verified 04/11/21 10:52 s oxycodone Allergy Intermediate Severe Verified 04/11/21 10:52 itching red yeast rice Allergy rash Uncoded 04/11/21 10:52 General MOISES: 2 Review of Systems Constitutional Constitutional: Denies fatigue, Reports fever(s), Denies headache(s) and Denies weakness Eyes Eyes: Denies change in vision ENT Ears, Nose, Mouth, and Throat: Denies headache(s) and Denies neck pain Cardiovascular Cardiovascular: Denies chest pain and Denies dyspnea Respiratory Respiratory: Denies cough and Denies dyspnea Gastrointestinal Gastrointestinal: Denies abdominal pain, Denies nausea and Denies vomiting Genitourinary Genitourinary: Denies dysuria Musculoskeletal Musculoskeletal: Denies neck pain Integumentary/Breasts Skin/Breast: Denies rash Neurologic Neurologic: Denies headache(s) and Denies weakness Endocrine Endocrine: Denies fatigue [facility] Active Problem List Anemia (Chronic) Edema (Acute) Generalized weakness (Acute) Hypotension (Acute) Encephalopathy acute (Acute) Non-convulsive status epilepticus (Acute) Acute respiratory failure (Acute) Aspiration pneumonia (Acute) Status epilepticus (Acute) Acute confusional state (Acute) Syncope (Chronic) Anemia (Chronic) Bilateral lower extremity edema (Acute) Left inguinal hernia (Acute) Scar tissue (Acute) Primary biliary cholangitis (Chronic) Carcinoma of left breast (Acute) Epistaxis (Acute) Synovial cyst of left popliteal space (Chronic 09/01/16) Primary osteoarthritis of left knee (Chronic 07/05/17) Osteoarthritis (Chronic) Obesity (Chronic) Intention tremor (Chronic) Hypermetropia (Chronic 10/28/12) Hypercholesterolemia (Chronic) Essential hypertension (Chronic 03/06/13) Diabetes mellitus (Chronic 12/04/12) Asthma (Chronic 03/06/13) 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) Lumbar radiculitis (Chronic) 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) Status post rotator cuff repair (Chronic 06/23/13) Status post excision distal clavicle (Chronic 06/23/13) Asthma (Chronic) Medical History Actinic keratosis Asthma Benign hypertension Chronic pruritus Cortical age-related cataract of both eyes Cortical age-related cataract of both eyes (12/19/16) Diabetes mellitus Diverticulosis Esophageal ulcer Essential hypertension Gastric ulcer Grade II internal hemorrhoids Hypercholesterolemia Hypermetropia Intention tremor Obesity Osteoarthritis Primary osteoarthritis of left knee Synovial cyst of left popliteal space Torn rotator cuff (06/23/13) Repair rotator cuff by Dr. Kaden Escobedo 06-23-2013 Surgical History Biopsy of breast (04/18/17) benign breast tissue with cyst wall Colonoscopy - IV Sedation 10 + years ago- normal Colonoscopy - MAC (12/31/17) EGD - MAC (12/31/17) ganglion, left ankle Nuclear senile cataract Oseotomy (10/06/98) TONNY BILATERAL FEET Rotator Cuff Repair (06/23/13) Right with distal clavical excision Family History Mother , 88 Diabetes Essential hypertension Heart disease Hyperlipidemia Father , 63 Neoplasm BLADDER Sister Hyperlipidemia Breast cancer Brother Diabetes Essential hypertension Hyperlipidemia Neoplasm PROSTATE Prostate cancer Maternal Grandfather No problems noted. Paternal Grandfather No problems noted. Maternal Grandmother Diabetes Paternal Grandmother No problems noted. 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 Pets and animals: Yes Pets and animals: dog(s) Sexually active: No Do you think of yourself as: straight/heterosexual Current gender identity: female What is your relationship status?: How often do you talk on the phone with friends or family?: three or more times per week How often do you get together with friends or relatives?: twice per week How often do you attend advent or christian services?: decline to answer Do you belong to any clubs or organized social groups?: no Panel score (0-1 are the most socially isolated patients): 1 What type of physical activity do you participate in: none Nhung/Moravian: No preference Special nhung needs: No Seatbelt use: always Drive intox or ride w/intox starting gate driver: No Exam Const General: no acute distress and ill appearing chronically Orientation: alert, awake and oriented to person [facility] [place] Head: normal to inspection, normocephalic and atraumatic Face and sinus: normal facial exam Mouth: moist mucous membranes and moist mucous membranes abnormal (dry) Throat: posterior oropharynx normal Eyes General: appearance normal, both eyes and all related structures Conjunctivae: conjunctivae normal Neck Neck: normal visual inspection, full ROM, no lymphadenopathy, no meningeal signs, trachea midline, supple and nontender Resp Effort & Inspection: normal respiratory effort and able to speak in complete sentences Auscultation: diminished lung sounds bilaterally in the lower lung coe Cardio Rate: tachycardic (108) Rhythm: regular rhythm GI Inspection: normal to inspection Palpation: soft, not firm, no guarding, no pulsatile masses and nontender Auscultation: normal bowel sounds Back/Spine/Pelvis Back: no CVA tenderness and No back tenderness Skin General skin exam: no rashes or lesions noted Neuro General: patient alert, patient awake, oriented Patient Orientation: Person, moves all extremities and no focal motor deficits Cognition: normal cognition Motor: muscle tone normal throughout and strength 5/5 throughout Sensory Exam: no sensory deficits noted Extrem General: normal to inspection, full ROM, capillary refill normal and pedal edema bilaterally pitting and 3+ Psych Appearance: grossly normal Mental Status: mental status grossly normal Course Lab/Test Results Lab/Test Results: 05/18/21 21:15 Blood Blood Culture - Pending 05/18/21 21:15 Blood Blood Culture - Pending Critical Care Time Critical Care Time Critical Care Time: Yes Total Critical Care Time: 35 Attestation: Upon my evaluation, this patient had a high probability of clinically significant, life-threatening deterioration due to their current medical conditions, which required my direct attention, intervention, and personal management. I have personally provided greater than 30 minutes of critical care time exclusive of the time spend on separately billable procedures. Time includes obtaining a history, examining the patient, pulse oximetry, review of laboratory data, radiology results, discussion with consultants, arranging urgent treatment with development of a management plan, evaluation of patient's response to treatment, and monitoring for potential decompensation. Interventions were performed as documented above.
[2021-05-18 21:46] LABS: Source Nasal/Nares
[2021-05-18 21:51] LABS: Abs Immature Grans 0.04 10^3/uL (0.0-0.06); HCT 30.8 % (36.0-46.0); HGB 9.9 g/dL (11.2-15.7); MCH 27.6 pg (27.0-33.0); MCHC 32.1 % (32.0-36.0); MCV 85.8 fL (80-95); Nucleated RBC 0 %; Platelet Count 136 10^3/uL (130-400); RBC 3.59 10^6/uL (3.93-5.22); RDW 16.2 % (11.7-14.6); RDW-SD 50.4 fL; WBC 8.98 10^3/uL (4.4-10.8)
[2021-05-18 21:52] LABS: Bilirubin Negative (Negative); Blood Trace-intact (Negative); Clarity Sl Cloudy (Clear); Glucose Negative (Negative); Ketones Negative (Negative); Leukocyte Esterase Trace (Negative); Nitrite Negative (Negative); Specific Gravity 1.025 (1.005-1.025); pH 6.5 (5-8)
[2021-05-18 21:52] LABS: ESR 80 mm/hr (0-30)
[2021-05-18 21:57] LABS: Epithelial Cells Rare HPF (Negative); RBC 0-2 HPF (0-2)
[2021-05-18 21:58] LABS: Bacteria Many HPF (Negative); C & S Indicated? Yes; Casts Negative LPF (Negative); Crystals Negative HPF (Negative); Mucus Negative (Negative)
[2021-05-18 22:04] LABS: Creatine Kinase 444 U/L (26-192); INR 1.3 (0.9-1.1); Prothrombin Time 13.3 sec (9.3-11.0)
[2021-05-18 22:06] LABS: Absolute Eosinophil Count 0.18 10^3/uL (0.0-0.7); Absolute Lymphocyte Count 1.08 10^3/uL (1.2-3.4); Absolute Monocyte Count 0.63 10^3/uL (0.1-0.8); Atypical Lymphocytes % 3; Diff Comment Manual Differential; Myelocytes % 1; RBC Morphology Normal
[2021-05-18 22:15] LABS: ALT 55 U/L (14-59); AST 113 U/L (15-37); Albumin 2.3 g/dL (3.4-5.0); Alkaline Phosphatase 196 U/L (46-116); Anion Gap 9.3 mmol/L (3-11); BUN 19 mg/dL (7-18); Bilirubin, Total 1.7 mg/dL (0.2-1.0); C-Reactive Protein 2.41 mg/dL (0.0-0.3); CO2 26.7 mmol/L (21.0-32.0); CREATININE 0.7 mg/dL (0.55-1.02); Calcium 8.4 mg/dL (8.5-10.1); Chloride 100 mmol/L (98-107); Glucose 122 mg/dL (74-106); Magnesium 1.9 mg/dL (1.8-2.4); Potassium 3.5 mmol/L (3.5-5.1); Sodium 136 mmol/L (136-145)
[2021-05-18 22:16] LABS: Troponin I 0.07 ng/mL (<0.06)
--- NOTE | 2021-05-18 22:28 | DI.VRAD_ITS ---
Addendum created by Eldon Lopez MD on 05/18/2021 10:33:16 PM EST: THIS REPORT CONTAINS FINDINGS THAT MAY BE CRITICAL TO PATIENT CARE. The findings were verbally communicated via telephone conference with Drew Granados at 10:30 PM EST on 05/18/2021. The findings were acknowledged and understood. Initial report created on 05/18/2021 10:28:39 PM EST: PROCEDURE INFORMATION: Exam: CT Head Without Contrast Exam date and time: 05/18/2021 9:24 PM Age: 86 years old Clinical indication: Other: AMS TECHNIQUE: Imaging protocol: Computed tomography of the head without contrast. Other technique: STROKE PROTOCOL was implemented. COMPARISON: MR BRAIN WO 11/26/2020 12:12 PM FINDINGS: Brain: Negative for intraparenchymal hemorrhage. Negative for loss of martin-white differentiation in the middle cerebral artery territories. There is mild low-attenuation and sulcal effacement in the posterior left occipital lobe, a 3 cm region. Please see sales representative marine supplies axial image 76 series 5 and coronal image 91 series 7. The patient is obliquely positioned for the exam, and asymmetric streak artifact from the skull may contribute to the finding. The cerebellum and brainstem are unremarkable. Extra-axial space: No evidence of subdural hemorrhage. Cerebral ventricles: No ventriculomegaly. Paranasal sinuses: Visualized sinuses are unremarkable. No fluid levels. Mastoid air cells: Visualized mastoid air cells are well aerated. Bones/joints: Negative for skull fracture. Negative for focal bony lesion. Soft tissues: Unremarkable. IMPRESSION: 1. Negative for intracranial hemorrhage. 2. Unremarkable middle cerebral artery territory. 3. Possible early ischemic changes in the left occipital lobe. ASSESSMENT: ASPECTS (Felisha Stroke Program Early CT Score) is 10. This score is for the middle cerebral artery territory. Dictated and Authenticated by: Eldon Lopez MD. Ordering:HUNG Russell MD
--- NOTE | 2021-05-18 22:30 | DI.VRAD_ITS ---
PROCEDURE INFORMATION: Exam: XR Chest Exam date and time: 05/18/2021 10:05 PM Age: 86 years old Clinical indication: Other: Fever, AMS TECHNIQUE: Imaging protocol: XR of the chest. Views: 1 view. COMPARISON: CR XR PORTABLE CHEST AP 11/27/2020 8:49 AM FINDINGS: Tubes, catheters and devices: Monitoring wires present. Lungs: Lung volumes are low. Mild mixed interstitial and airspace opacity noted bilaterally. Pleural spaces: Unremarkable. No pleural effusion. No pneumothorax. Heart/Mediastinum: Mild cardiomegaly. Bones/joints: Unremarkable. Soft tissues: Left axillary surgical clips. IMPRESSION: Mild interstitial infiltrates and/or edema. Dictated and Authenticated by: Eldon Lopez MD. Ordering:HUNG Russell MD
[2021-05-18 22:53] LABS: COVID-19 PCR Negative (Negative)
[2021-05-18 22:53] LABS: Procalcitonin 0.3 ng/mL
--- NOTE | 2021-05-18 23:14 | HPE_ITS ---
Date of service: 05/18/21 Time of Service: 23:14 Assessment and Plan Assessment and plan (1) AMS (altered mental status): Status: Acute Assessment and plan: Likely secondary to UTI. No obvious confusion at time of my evaluation. Could also be related to COVID vaccine / acute, temporary. Also concern for a possible developing ischemia noted on CT. Planning MRI. (2) Anemia: Status: Chronic Assessment and plan: Of chronic disease. Stable. Monitor. (3) Urinary tract infection: Status: Acute Assessment and plan: Urine sent for culture. Cont Rocephin 1 gram daily. (4) Hypercholesterolemia: Status: Chronic Assessment and plan: Cont atorvastatin (5) Essential hypertension: Status: Chronic Assessment and plan: Not on antihypertensive meds. Monitor. (6) Diabetes mellitus: Status: Chronic Assessment and plan: Hold metformin at this time in event contrast needed. Carb controlled diet. SS insulin correction dosing. If stable and not requiring insulin can d/c. Qualifiers: Diabetes mellitus complication status: without complication Diabetes mellitus care home insulin use: without intermediate teacher use Diabetes mellitus type: type 2 Qualified Code(s): E11.9 - Type 2 diabetes mellitus without complications (7) Asthma: Status: Chronic Assessment and plan: No respiratory symptoms suggestive of an exacerbation. PRN albuterol MDI (8) Esophageal ulcer: Assessment and plan: Previous history. Now on ASA 81mg po daily in event she did have an ischemic event. Monitor for any bleeding. (9) Primary biliary cholangitis: Status: Chronic Assessment and plan: Followed by GI at [facility] Cont ursodiol. (10) Carcinoma of left breast: Status: Acute Assessment and plan: Cont Arimidex. Qualifiers: Breast location: unspecified site of breast Estrogen receptor status: positive Patient sex: female Qualified Code(s): C50.912 - Malignant neoplasm of unspecified site of left female breast; Z17.0 - Estrogen receptor positive status [ER+] (11) Status epilepticus: Status: Acute History of Present Illness History of Present Illness Chief Complaint: Altered mental status Narrative: This is an 86 yo female with a PMH of COVID in JUL 2020, status epilepticus, Anemia, Primary biliary cholangitis, obesity, HLD, HTN, DM, Asthma. She presented to the ED via EMS for altered mental status. Her son Chon and EMS provided most of the history since the patient is a poor historian. The son reports she received her first COVID vaccine the day prior to presentation. On the morning of this admission she did not answer her phone when he called. The family went to her home and found her on the bathroom floor. It was unclear how long she was there. She was able to get up off the floor on her own even though she stated she could not. She remained altered throughout the day and was noted to have a fever of 103F. She did have a temp of 101F in the ED. Her WBC count was normal. Hgb 9.9. INR 1.3. Lytes normal. Lactate 1.3. Creatinine 0.7. Glucose 122. Total bilirubin 1.7 (ranges from 1.1 to 1.9). AST 113. ALT 55. Troponin 0.07. Procalcitonin 0.3. Creatinine Kinase 444. UA with tr leuk est, neg nitrite, WBC 10-20, Many bacteria. ASA 325mg given in ED. Rocephin 1 gram IV administered in ED. CXR with mild interstitial infiltrates and/or edema. CT head with possible early ischemic changes in the left occipital lobe. No intracranial hemorrhage. Admitted for further workup and treatment. [facility] Active Problem List Urinary tract infection (Acute) AMS (altered mental status) (Acute) Elevated troponin (Acute) Febrile illness (Acute) Anemia (Chronic) Edema (Acute) Generalized weakness (Acute) Hypotension (Acute) Encephalopathy acute (Acute) Non-convulsive status epilepticus (Acute) Acute respiratory failure (Acute) Aspiration pneumonia (Acute) Status epilepticus (Acute) Acute confusional state (Acute) Syncope (Chronic) Anemia (Chronic) Bilateral lower extremity edema (Acute) Left inguinal hernia (Acute) Scar tissue (Acute) Primary biliary cholangitis (Chronic) Carcinoma of left breast (Acute) Epistaxis (Acute) Synovial cyst of left popliteal space (Chronic 09/01/16) Primary osteoarthritis of left knee (Chronic 07/05/17) Osteoarthritis (Chronic) Obesity (Chronic) Intention tremor (Chronic) Hypermetropia (Chronic 10/28/12) Hypercholesterolemia (Chronic) Essential hypertension (Chronic 03/06/13) Diabetes mellitus (Chronic 12/04/12) Asthma (Chronic 03/06/13) 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) Lumbar radiculitis (Chronic) 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) Status post rotator cuff repair (Chronic 06/23/13) Status post excision distal clavicle (Chronic 06/23/13) Asthma (Chronic) Medical History Actinic keratosis Asthma Benign hypertension Chronic pruritus Cortical age-related cataract of both eyes Cortical age-related cataract of both eyes (12/19/16) Diabetes mellitus Diverticulosis Esophageal ulcer Essential hypertension Gastric ulcer Grade II internal hemorrhoids Hypercholesterolemia Hypermetropia Intention tremor Obesity Osteoarthritis Primary osteoarthritis of left knee Synovial cyst of left popliteal space Torn rotator cuff (06/23/13) Repair rotator cuff by Dr. Kaden Escobedo 06-23-2013 Surgical History Biopsy of breast (04/18/17) benign breast tissue with cyst wall Colonoscopy - IV Sedation 10 + years ago- normal Colonoscopy - MAC (12/31/17) EGD - MAC (12/31/17) ganglion, left ankle Nuclear senile cataract Oseotomy (10/06/98) TONNY BILATERAL FEET Rotator Cuff Repair (06/23/13) Right with distal clavical excision Family History Mother , 88 Diabetes Essential hypertension Heart disease Hyperlipidemia Father , 63 Neoplasm BLADDER Sister Hyperlipidemia Breast cancer Brother Diabetes Essential hypertension Hyperlipidemia Neoplasm PROSTATE Prostate cancer Maternal Grandfather No problems noted. Paternal Grandfather No problems noted. Maternal Grandmother Diabetes Paternal Grandmother No problems noted. 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 Pets and animals: Yes Pets and animals: dog(s) Sexually active: No Do you think of yourself as: straight/heterosexual Current gender identity: female What is your relationship status?: How often do you talk on the phone with friends or family?: three or more times per week How often do you get together with friends or relatives?: twice per week How often do you attend presybeterian or samaritan services?: decline to answer Do you belong to any clubs or organized social groups?: no Panel score (0-1 are the most socially isolated patients): 1 What type of physical activity do you participate in: none Nhung/Latter-Day: No preference Special nhung needs: No Seatbelt use: always Drive intox or ride w/intox cpr ambulance driver: No Do you feel safe at home: Yes Do you feel safe in your relationship?: Yes Meds Allergies and Home Medications Allergies Allergy/AdvReac Type Severity Reaction Status Date / Time bee venom protein (honey bee) Allergy Severe Anaphylaxsi Verified 05/18/21 23:36 s hornet venom Allergy Severe Anaphylaxsi Verified 05/18/21 23:36 s oxycodone Allergy Intermediate Severe Verified 05/18/21 23:36 itching red yeast rice Allergy rash Uncoded 05/18/21 23:36 Home Medications Medication Instructions Recorded Confirmed Type cholecalciferol (vitamin D3) 1,000 unit PO DAILY 09/01/16 05/19/21 History [Vitamin D3] magnesium amino acid chelate 133 mg PO DAILY 09/01/16 05/19/21 History ibuprofen [Advil] 400 mg PO PRN PRN 12/22/16 05/19/21 History blood-glucose meter [FreeStyle #1 kit 07/05/17 04/11/21 Rx Lite Meter] ibuprofen 600 mg tablet 600 mg PO TID PRN #90 tab 09/09/19 05/19/21 Rx anastrozole 1 mg tablet 1 mg PO DAILY 03/31/20 04/11/21 History ursodiol 300 mg capsule 300 mg PO TID cap 03/31/20 05/19/21 History FreeStyle Lancets 28 gauge #100 ea NS 06/15/20 04/11/21 Rx blood sugar diagnostic #100 strip 06/15/20 04/11/21 Rx albuterol sulfate 90 mcg/actuation 1 puff INHALATION Q6H PRN #3 puff 12/20/20 05/19/21 Rx aerosol inhaler levetiracetam 1,000 mg tablet 1,000 mg PO BID #180 tab 01/11/21 05/19/21 Rx metformin 500 mg tablet 500 mg PO BID #180 tab-cap 01/21/21 05/19/21 Rx potassium chloride 10 mEq 10 meq PO DAILY #90 tab 04/12/21 05/19/21 Rx tablet,extended release atorvastatin 40 mg tablet 40 mg PO DAILY #90 tab-cap 04/18/21 05/19/21 Rx furosemide 20 mg tablet 20 mg PO DAILY #90 tab 04/18/21 05/19/21 Rx benzonatate 100 mg capsule 100 mg PO TID PRN #30 cap 05/16/21 05/19/21 Rx Exam Narrative Exam Narrative: Lying on gurney in the ED. Conversant. Const General: cooperative, no acute distress and disheveled Nutritional Appearance: average body habitus Orientation: alert, oriented to person and oriented to place HENOH Head: no palpable skull fracture and normocephalic Ears: hearing grossly normal bilaterally Eyes General: appearance normal, both eyes and all related structures Sclera: sclerae normal Neck Neck: full ROM and no JVD Resp Effort & Inspection: normal respiratory effort Auscultation: clear to auscultation bilaterally Cardio Rate: regular rate Rhythm: regular rhythm Heart Sounds: S1 normal and murmur GI Palpation: soft and nontender Auscultation: normal bowel sounds Skin Rashes: no rashes Full body images: 1. Mild erythema of ankles with dry patches, some thickened crusts. Neuro General: patient alert and no focal motor deficits Speech: speech normal Extrem General: no calf tenderness and edema Laterality: bilateral (Lower exts w/o pitting) Psych Speech and Movement: speech and movement normal Affect: normal affect (mildly anxious about being hospitalized) Results Labs Result diagrams: 05/18/21 21:30 05/18/21 21:30 Labs: Laboratory Results - last 24 hr 05/18/21 05/18/21 05/18/21 21:10 21:15 21:30 WBC RBC Hgb Hct MCV MCH MCHC RDW Plt Count MPV Immature Gran % Neutrophils % Lymphocytes % Atypical Lymphs % Monocytes % Eosinophils % Basophils % Myelocytes % Nucleated RBC % Absolute Neutrophils Absolute Lymphocytes Absolute Monocytes Absolute Eosinophils Absolute Basophils RBC Morphology ESR PT INR VBG Lactate Sodium Potassium Chloride Carbon Dioxide Anion Gap BUN Creatinine Estimated GFR/1.73 m2 Glucose Calcium Magnesium Total Bilirubin AST ALT Alkaline Phosphatase Creatine Kinase Troponin I C-Reactive Protein Total Protein Albumin Procalcitonin 0.3 Urine Color Yellow Urine Clarity Sl Cloudy Urine pH 6.5 Ur Specific Limestone 1.025 Urine Protein 30 H Urine Ketones Negative Urine Blood Trace-intact H Urine Nitrite Negative Urine Bilirubin Negative Urine Urobilinogen 1.0 H Ur Leukocyte Esterase Trace H Urine RBC 0-2 Urine WBC 10-20 H Ur Epithelial Cells Rare Urine Crystals Negative Urine Bacteria Many Urine Casts Negative Urine Mucus Negative Ur Culture Indicated? Yes Urine Glucose Negative COVID-19 Source Nasal/Nares SARS-CoV-2 (PCR) Negative 05/18/21 05/18/21 05/18/21 21:30 21:30 21:30 WBC 8.98 RBC 3.59 L Hgb 9.9 L Hct 30.8 L MCV 85.8 MCH 27.6 MCHC 32.1 RDW 16.2 H Plt Count 136 MPV 11.0 Immature Gran % 0.0 Neutrophils % 78.0 Lymphocytes % 9.0 Atypical Lymphs % 3 Monocytes % 7.0 Eosinophils % 2.0 Basophils % 0.0 Myelocytes % 1 Nucleated RBC % 0 Absolute Neutrophils 7.00 H Absolute Lymphocytes 1.08 L Absolute Monocytes 0.63 Absolute Eosinophils 0.18 Absolute Basophils 0.00 RBC Morphology Normal ESR PT INR VBG Lactate 2.0 H Sodium 136 Potassium 3.5 Chloride 100 Carbon Dioxide 26.7 Anion Gap 9.3 BUN 19 H Creatinine 0.7 Estimated GFR/1.73 m2 >= 60.00 Glucose 122 H Calcium 8.4 L Magnesium 1.9 Total Bilirubin 1.7 H AST 113 H ALT 55 Alkaline Phosphatase 196 H Creatine Kinase Troponin I 0.07 H C-Reactive Protein 2.41 H Total Protein 7.0 Albumin 2.3 L Procalcitonin Urine Color Urine Clarity Urine pH Ur Specific Limestone Urine Protein Urine Ketones Urine Blood Urine Nitrite Urine Bilirubin Urine Urobilinogen Ur Leukocyte Esterase Urine RBC Urine WBC Ur Epithelial Cells Urine Crystals Urine Bacteria Urine Casts Urine Mucus Ur Culture Indicated? Urine Glucose COVID-19 Source SARS-CoV-2 (PCR) 05/18/21 05/18/21 05/18/21 21:30 21:30 21:30 WBC RBC Hgb Hct MCV MCH MCHC RDW Plt Count MPV Immature Gran % Neutrophils % Lymphocytes % Atypical Lymphs % Monocytes % Eosinophils % Basophils % Myelocytes % Nucleated RBC % Absolute Neutrophils Absolute Lymphocytes Absolute Monocytes Absolute Eosinophils Absolute Basophils RBC Morphology ESR 80 H PT 13.3 H INR 1.3 H VBG Lactate Sodium Potassium Chloride Carbon Dioxide Anion Gap BUN Creatinine Estimated GFR/1.73 m2 Glucose Calcium Magnesium Total Bilirubin AST ALT Alkaline Phosphatase Creatine Kinase 444 H Troponin I C-Reactive Protein Total Protein Albumin Procalcitonin Urine Color Urine Clarity Urine pH Ur Specific Limestone Urine Protein Urine Ketones Urine Blood Urine Nitrite Urine Bilirubin Urine Urobilinogen Ur Leukocyte Esterase Urine RBC Urine WBC Ur Epithelial Cells Urine Crystals Urine Bacteria Urine Casts Urine Mucus Ur Culture Indicated? Urine Glucose COVID-19 Source SARS-CoV-2 (PCR)
[2021-05-18] MEDS: Aspirin 325 MG TAB PO (23:50)
[2021-05-18] MEDS: Normal Saline 1,000 ML 1000 ML IV (23:59)
[2021-05-19] VITALS (15 sets, daily range): BP systolic 97–142; BP diastolic 41–69; PULSE 79–92; RESP 14–19; TEMP 36.3–37.5; O2SAT 91–98
--- NOTE | 2021-05-19 | DI.MRI_ITS ---
Exam(s) MR BRAIN WO/W EXAM: MR BRAIN WO/W CLINICAL HISTORY: Altered mental status.? of dev. ischemia on CT TECHNIQUE: Multiplanar multisequence MRI of the brain was performed. Both noninfused and contrast i nfused sequences were performed. IV Contrast injected was 13 cc Dotarem. COMPARISON: MR MR BRAIN WO from 11/26/2020 MR MR BRAIN WO from 11/26/[address] HEAD WO from 05/18/[address] HEAD WO from 05/18/2021 FINDINGS: CEREBRAL PARENCHYMA: No evidence of intracranial hemorrhage, mass effect nor shift of midline structu re. No extraaxial fluid collections. Ventricles are not enlarged nor shifted. There is no significant focal signal abnormality in the cerebellar hemispheres nor within the tristan, m idbrain, and thalami. There is no new abnormal signal abnormality in the periventricular white matter. Few sys small foci of signal abnormality on FLAIR sequence are again noted, unchanged. No evidence of new territorial i nfarction. Symmetrical age appropriate atrophy noted, unchanged There are no ring enhancing lesions in the brain. There is no abnormal meningeal enhancement. PITUITARY GLAND: No mass nor parasellar abnormality. No obvious abnormality in the cavernous sinuses. FLOW VOIDS: The expected flow void are noted. No evidence of obvious aneurysm nor obvious vascular ma lformation. PARANASAL SINUSES: The visualized paranasal sinuses present appear unremarkable. Previously present f luid in the left sphenoid sinus is no longer seen. ORBITS: No obvious abnormal findings. IMPRESSION: 1. No new significant finding when compared to the prior MRI scan of 11/26/2020. There is age relate d medical involutional change again noted unchanged small FLAIR bright foci of white matter signal ab normality but no evidence of new territorial infarction, hemorrhage, nor ring-enhancing lesions in th e brain. There is also no abnormal meningeal enhancement, focal nor diffuse. 2. Paranasal sinuses are presently clear. The previously present fluid in the sphenoid sinus is no l onger seen. DATA REPOSITORY:
[2021-05-19] MEDS: cefTRIAXone 1 GM/50 ML BAG IVPB ×2 (00:03→21:53)
[2021-05-19 00:36] LABS: Troponin I 0.07 ng/mL (<0.06)
[2021-05-19] MEDS: Acetaminophen 325 MG TAB PO ×2 (07:39→20:22)
[2021-05-19 07:44] LABS: Abs Immature Grans 0.02 10^3/uL (0.0-0.06); Absolute Basophil Count 0.05 10^3/uL (0.0-0.2); Absolute Eosinophil Count 0.09 10^3/uL (0.0-0.7); Absolute Lymphocyte Count 0.77 10^3/uL (1.2-3.4); Absolute Neutrophil Count 4.24 10^3/uL (1.2-6.7); Basophils % 0.8; Eosinophils % 1.5; HCT 27.3 % (36.0-46.0); HGB 8.9 g/dL (11.2-15.7); Immature Grans % 0.3; Lymphocytes % 12.9; MCH 28.1 pg (27.0-33.0); MCHC 32.6 % (32.0-36.0); MCV 86.1 fL (80-95); MPV 11.3 fL (8.0-11.0); Monocytes % 13.4; Neutrophils % 71.1; Nucleated RBC 0 %; Platelet Count 108 10^3/uL (130-400); RBC 3.17 10^6/uL (3.93-5.22); RDW 16.6 % (11.7-14.6); RDW-SD 51.9 fL; WBC 5.97 10^3/uL (4.4-10.8)
[2021-05-19 08:29] LABS: ALT 43 U/L (14-59); AST 92 U/L (15-37); Albumin 1.9 g/dL (3.4-5.0); Alkaline Phosphatase 160 U/L (46-116); Anion Gap 6.1 mmol/L (3-11); BUN 21 mg/dL (7-18); Bilirubin, Total 1.1 mg/dL (0.2-1.0); CO2 26.9 mmol/L (21.0-32.0); CREATININE 0.6 mg/dL (0.55-1.02); Calcium 8.2 mg/dL (8.5-10.1); Chloride 105 mmol/L (98-107); Glucose 85 mg/dL (74-106); Potassium 3.3 mmol/L (3.5-5.1); Sodium 138 mmol/L (136-145); Total Protein 5.8 g/dL (6.4-8.2)
[2021-05-19] MEDS: Ursodiol 300 MG CAP PO ×3 (09:04→20:22)
[2021-05-19] MEDS: levETIRAcetam 500 MG TAB 1000 MG PO ×2 (09:05→20:22)
[2021-05-19] MEDS: Potassium Chloride 10 MEQ CAPCR PO (09:05)
[2021-05-19] MEDS: Cholecalciferol (Vitamin D3) 1,000 UNIT TAB 1000 UNITS PO (09:05)
[2021-05-19] MEDS: Furosemide 20 MG TAB PO (09:06)
[2021-05-19] MEDS: Gadoterate meglumine 20 ML VIAL 13 ML IVP (11:34)
[2021-05-19] MEDS: Normal Saline Flush 10 ML SYR IVP ×2 (11:36→21:53)
--- NOTE | 2021-05-19 12:02 | INITIAL_ITS ---
- If Service Date Differs Date of service: 05/19/21 Time of Service: 12:02 Care Management Initial Assess REASON FOR HOSPITALIZATION:: AMS PAST MEDICAL HISTORY/PAST SURGICAL HISTORY:: Active Problem List . Urinary tract infection (Acute). AMS (altered mental status) (Acute). Elevated troponin (Acute). Febrile illness (Acute). Anemia (Chronic). Edema (Acute). Generalized weakness (Acute). Hypotension (Acute). Encephalopathy acute (Acute). Non-convulsive status epilepticus (Acute). Acute respiratory failure (Acute). Aspiration pneumonia (Acute). Status epilepticus (Acute). Acute confusional state (Acute). Syncope (Chronic). Anemia (Chronic). Bilateral lower extremity edema (Acute). Left inguinal hernia (Acute). Scar tissue (Acute). Primary biliary cholangitis (Chronic). Carcinoma of left breast (Acute). Epistaxis (Acute). Synovial cyst of left popliteal space (Chronic 09/01/16). Primary osteoarthritis of left knee (Chronic 07/05/17). Osteoarthritis (Chronic). Obesity (Chronic). Intention tremor (Chronic). Hypermetropia (Chronic 10/28/12). Hypercholesterolemia (Chronic). Essential hypertension (Chronic 03/06/13). Diabetes mellitus (Chronic 12/04/12). Asthma (Chronic 03/06/13). 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 Lumbar radiculitis (Chronic). 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 Status post rotator cuff repair (Chronic 06/23/13). Status post excision distal clavicle (Chronic 06/23/13). Asthma (Chronic). Medical History . Actinic keratosis. Asthma. Benign hypertension. Chronic pruritus. Cortical age-related cataract of both eyes. Cortical age-related cataract of both eyes (12/19/16). Diabetes mellitus. Diverticulosis. Esophageal ulcer. Essential hypertension. Gastric ulcer. Grade II internal hemorrhoids. Hypercholesterolemia. Hypermetropia. Intention tremor. Obesity. Osteoarthritis. Primary osteoarthritis of left knee. Synovial cyst of left popliteal space. Torn rotator cuff (06/23/13). Repair rotator cuff by Dr. Kaden Escobedo 06-23-2013. Surgical History . Biopsy of breast (04/18/17). benign b reast tissue with cyst wall. Colonoscopy - IV Sedation. 10 + years ago- normal. Colonoscopy - MAC (12/31/17). EGD - MAC (12/31/17). ganglion, left ankle. Nuclear senile cataract. Oseotomy (10/06/98). TONNY BILATERAL FEET. Rotator Cuff Repair (06/23/13). Right with distal clavical excision PREVIOUS FUNCTIONAL STATUS/SOCIAL/FAMILY SUPPORTS:: Elina lives alone in [place], although she reported that her grandson Pasha will be coming to stay with her soon when he returns from [place]. Her daughter Yaneli lives nearby as does her son Chon. Elina shared that the person who helps her out the most is her [id number] Mariann who also lives near her. Elina is independent at baseline and receives no community services. CURRENT FUNCTIONAL STATUS:: Elina was sitting up in a chair when met with her. She was pleasant and agreeable to conversation. Elina shared that her son's long time girlfriend's brother, who lives out of state, of Covid this week and that it had been very difficult for the family. She stated that he was not vaccinated and had many health issues. Elina talked about her family and how supportive they are. She verbalized that she is really looking forward to having her grandson living with her for a while. She feels it will be good for both of them. Elina had a pallaitive consult today with Elizabeth Gunter today. Elizabeth spent almost 2 hours with Elina and Chon but was unable to complete a COLST form satisfactorily. Elina and Chon had different views about resuscitation and intubation so the issue was left for future discussion. Elizabeth will follow up with Elina as an outpatient. ADVANCE DIRECTIVES:: none on file Has patient been provided with info about the portal/API?: Yes Did the patient sign up for the portal?: Yes (previously) CODE STATUS:: Full Code INSURANCE COVERAGE / FINANCIAL ISSUES:: Medicare. Financial Assist 100 CURRENT HOME/COMMUNITY SERVICES/EQUIPMENT:: none PRIMARY CARE PHYSICIAN:: Jose Humphrey POTENTIAL DISCHARGE NEEDS:: Follow up with PCP and plan of care PATIENT/FAMILY EDUCATION NEEDS:: Review of discharge instructions, medications, follow up plan, activity, limitations, and discuss Ask Me Three TRANSPORTATION:: via private vehicle with family PLAN:: Elina will likely be discharged home with no new services. She specifically stated that she does not want home health.She will follow up with her community providers and plan of care and transport with family. CM will continue to support Elina and her discharge planning concerns.
--- NOTE | 2021-05-19 14:23 | PCNE_ITS ---
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 She is currently admitted to the hospital for AMS and fever, question UTI. She also recently received COVID vaccine. Palliative was consulted to discuss goals of care. Her son, Antonio, was present for the Palliative visit. They report that prior to COVID she was very active. She was able to mow her lawn, care for her garden, drive, and care for herself. Since COVID, she has had ongoing breathing problems, she gets SOB with exertion. She is still coughing. She is deconditioned, she gets very fatigued with any activity. She spends the day in her chair. Her legs are edematous. She is able to get around the house with a walker now. Her son is interested in [employer]. She lives alone but her son checks on her frequently. She also has a daughter, Yaneli who lives locally. We discussed CODE STATUS extensively. She initially stated that she did not want resuscitation or intubation. Her son explained to her that she was intubated when she had Covid and encouraged her to choose to be a full code. She was clear that she did not want a feeding tube but otherwise, she is not completely clear on what she wanted. She referred to her son and said, he knows more about medical staff than me. We started to complete a COLST form but decided not to finish it until she has more time to think about what she really wants for does not want. I encouraged her to be sure that she was c hoosing what she wanted. We plan to meet again in about a month to review CODE STATUS. 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 She is currently admitted to the hospital for AMS and fever, question UTI after being found down at home by her son. She also recently received COVID vaccine. Palliative was consulted to discuss goals of care. She describes having Covid several months ago and not yet to returning to her baseline. She is followed by neurology, Dr. Hernandez plans to do cognitive testing as an outpatient. There is concern that seizure activity may have contributed to her being found down at home. She will have an EEG tomorrow. We discussed CODE STATUS and began to fill out a COLST form. She initially stated that she wanted to be a DNR/DNI, however, her son encouraged her otherwise. We decided not to complete the form until she is clear on what she wants or does not want. We plan to meet in 1 month outpatient to review CODE STATUS and possibly complete a COLST form. She will also benefit from being followed by palliative care in the setting of declining overall condition. Follow-up with palliative in 1 month. Review of Systems All systems reviewed & are unremarkable except as noted in HPI and below PFSH All Active Problems (Updated 05/19/21 @ 21:04 by Elizabeth Gunter NP) Palliative care patient (Acute) Discharge planning issues (Acute) DVT prophylaxis (Acute) Urinary tract infection (Acute) AMS (altered mental status) (Acute) Elevated troponin (Acute) Febrile illness (Acute) Anemia (Chronic) Edema (Acute) Generalized weakness (Acute) Hypotension (Acute) Encephalopathy acute (Acute) Non-convulsive status epilepticus (Chronic) Acute respiratory failure (Acute) Aspiration pneumonia (Acute) Status epilepticus (Acute) Acute confusional state (Acute) Syncope (Chronic) Anemia (Chronic) Bilateral lower extremity edema (Acute) Left inguinal hernia (Acute) Scar tissue (Acute) Primary biliary cholangitis (Chronic) Carcinoma of left breast (Acute) Epistaxis (Acute) Synovial cyst of left popliteal space (Chronic 09/01/16) Primary osteoarthritis of left knee (Chronic 07/05/17) Osteoarthritis (Chronic) Obesity (Chronic) Intention tremor (Chronic) Hypermetropia (Chronic 10/28/12) Hypercholesterolemia (Chronic) Essential hypertension (Chronic 03/06/13) Diabetes mellitus (Chronic 12/04/12) Asthma (Chronic 03/06/13) 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) Lumbar radiculitis (Chronic) 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) Status post rotator cuff repair (Chronic 06/23/13) Status post excision distal clavicle (Chronic 06/23/13) Asthma (Chronic) Medical History Actinic keratosis Asthma Benign hypertension Chronic pruritus Cortical age-related cataract of both eyes Cortical age-related cataract of both eyes (12/19/16) Diabetes mellitus Diverticulosis Esophageal ulcer Essential hypertension Gastric ulcer Grade II internal hemorrhoids Hypercholesterolemia Hypermetropia Intention tremor Obesity Osteoarthritis Primary osteoarthritis of left knee Synovial cyst of left popliteal space Torn rotator cuff (06/23/13) Repair rotator cuff by Dr. Kaden Escobedo 06-23-2013 Surgical History Biopsy of breast (04/18/17) benign breast tissue with cyst wall Colonoscopy - IV Sedation 10 + years ago- normal Colonoscopy - MAC (12/31/17) EGD - MAC (12/31/17) ganglion, left ankle Nuclear senile cataract Oseotomy (10/06/98) TONNY BILATERAL FEET Rotator Cuff Repair (06/23/13) Right with distal clavical excision Family History Mother , 88 Diabetes Essential hypertension Heart disease Hyperlipidemia Father , 63 Neoplasm BLADDER Sister Hyperlipidemia Breast cancer Brother Diabetes Essential hypertension Hyperlipidemia Neoplasm PROSTATE Prostate cancer Maternal Grandfather No problems noted. Paternal Grandfather No problems noted. Maternal Grandmother Diabetes Paternal Grandmother No problems noted. 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 Pets and animals: Yes Pets and animals: dog(s) Sexually active: No Do you think of yourself as: straight/heterosexual Current gender identity: female What is your relationship status?: How often do you talk on the phone with friends or family?: three or more times per week How often do you get together with friends or relatives?: twice per week How often do you attend gnosticism or gnosticist services?: decline to answer Do you belong to any clubs or organized social groups?: no Panel score (0-1 are the most socially isolated patients): 1 What type of physical activity do you participate in: none Nhung/Hinduism: No preference Special nhung needs: No Seatbelt use: always Drive intox or ride w/intox race car driver: No Do you feel safe at home: Yes Do you feel safe in your relationship?: Yes Exam Narrative Exam Narrative: General: Very pleasant, elderly female, sitting up in the chair in her hospital room with her son present. She is alert and oriented, forgetful at times. HEENT: Normocephalic, atraumatic, EOMI, mucous membranes moist. Cardiovascular: Heart sounds regular, nontachycardic, + murmur. Respiratory: Respirations appear even and unlabored at rest, + rales left base. GI: +BS, abdomen soft, nontender on palpation, nondistended. Extremities: Moves all 4 extremities freely, 2+ pitting edema bilateral lower extremities. Results Last Vital Signs Temp 36.7 C 05/19/21 01:29 Pulse 81 05/19/21 01:29 Resp 18 05/19/21 01:29 BP 101/59 L 05/19/21 01:29 Pulse Ox 93 05/19/21 01:29 Labs Result diagrams: 05/19/21 07:30 05/19/21 07:30 Labs: Laboratory Results - last 24 hr 05/18/21 05/18/21 05/18/21 21:10 21:15 21:30 WBC RBC Hgb Hct MCV MCH MCHC RDW Plt Count MPV Immature Gran % Neutrophils % Lymphocytes % Atypical Lymphs % Monocytes % Eosinophils % Basophils % Myelocytes % Nucleated RBC % Absolute Neutrophils Absolute Lymphocytes Absolute Monocytes Absolute Eosinophils Absolute Basophils RBC Morphology ESR PT INR VBG Lactate Sodium Potassium Chloride Carbon Dioxide Anion Gap BUN Creatinine Estimated GFR/1.73 m2 Glucose Calcium Magnesium Total Bilirubin AST ALT Alkaline Phosphatase Creatine Kinase Troponin I C-Reactive Protein Total Protein Albumin Procalcitonin 0.3 Urine Color Yellow Urine Clarity Sl Cloudy Urine pH 6.[address] 1.025 Urine Protein 30 H Urine Ketones Negative Urine Blood Trace-intact H Urine Nitrite Negative Urine Bilirubin Negative Urine Urobilinogen 1.0 H Ur Leukocyte Esterase Trace H Urine RBC 0-2 Urine WBC 10-20 H Ur Epithelial Cells Rare Urine Crystals Negative Urine Bacteria Many Urine Casts Negative Urine Mucus Negative Ur Culture Indicated? Yes Urine Glucose Negative COVID-19 Source Nasal/Nares SARS-CoV-2 (PCR) Negative 05/18/21 05/18/21 05/18/21 21:30 21:30 21:30 WBC 8.98 RBC 3.59 L Hgb 9.9 L Hct 30.8 L MCV 85.8 MCH 27.6 MCHC 32.1 RDW 16.2 H Plt Count 136 MPV 11.0 Immature Gran % 0.0 Neutrophils % 78.0 Lymphocytes % 9.0 Atypical Lymphs % 3 Monocytes % 7.0 Eosinophils % 2.0 Basophils % 0.0 Myelocytes % 1 Nucleated RBC % 0 Absolute Neutrophils 7.00 H Absolute Lymphocytes 1.08 L Absolute Monocytes 0.63 Absolute Eosinophils 0.18 Absolute Basophils 0.00 RBC Morphology Normal ESR PT INR VBG Lactate 2.0 H Sodium 136 Potassium 3.5 Chloride 100 Carbon Dioxide 26.7 Anion Gap 9.3 BUN 19 H Creatinine 0.7 Estimated GFR/1.73 m2 >= 60.00 Glucose 122 H Calcium 8.4 L Magnesium 1.9 Total Bilirubin 1.7 H AST 113 H ALT 55 Alkaline Phosphatase 196 H Creatine Kinase Troponin I 0.07 H C-Reactive Protein 2.41 H Total Protein 7.0 Albumin 2.3 L Procalcitonin Urine Color Urine Clarity Urine pH Ur Specific [place] Urine Protein Urine Ketones Urine Blood Urine Nitrite Urine Bilirubin Urine Urobilinogen Ur Leukocyte Esterase Urine RBC Urine WBC Ur Epithelial Cells Urine Crystals Urine Bacteria Urine Casts Urine Mucus Ur Culture Indicated? Urine Glucose COVID-19 Source SARS-CoV-2 (PCR) 05/18/21 05/18/21 05/18/21 21:30 21:30 21:30 WBC RBC Hgb Hct MCV MCH MCHC RDW Plt Count MPV Immature Gran % Neutrophils % Lymphocytes % Atypical Lymphs % Monocytes % Eosinophils % Basophils % Myelocytes % Nucleated RBC % Absolute Neutrophils Absolute Lymphocytes Absolute Monocytes Absolute Eosinophils Absolute Basophils RBC Morphology ESR 80 H PT 13.3 H INR 1.3 H VBG Lactate Sodium Potassium Chloride Carbon Dioxide Anion Gap BUN Creatinine Estimated GFR/1.73 m2 Glucose Calcium Magnesium Total Bilirubin AST ALT Alkaline Phosphatase Creatine Kinase 444 H Troponin I C-Reactive Protein Total Protein Albumin Procalcitonin Urine Color Urine Clarity Urine pH Ur Specific [place] Urine Protein Urine Ketones Urine Blood Urine Nitrite Urine Bilirubin Urine Urobilinogen Ur Leukocyte Esterase Urine RBC Urine WBC Ur Epithelial Cells Urine Crystals Urine Bacteria Urine Casts Urine Mucus Ur Culture Indicated? Urine Glucose COVID-19 Source SARS-CoV-2 (PCR) 05/19/21 05/19/21 05/19/21 00:10 07:30 07:30 WBC 5.97 D RBC 3.17 L Hgb 8.9 L Hct 27.3 L MCV 86.1 MCH 28.1 MCHC 32.6 RDW 16.6 H Plt Count 108 L MPV 11.3 H Immature Gran % 0.3 Neutrophils % 71.1 Lymphocytes % 12.9 Atypical Lymphs % Monocytes % 13.4 Eosinophils % 1.5 Basophils % 0.8 Myelocytes % Nucleated RBC % 0 Absolute Neutrophils 4.24 Absolute Lymphocytes 0.77 L Absolute Monocytes 0.80 Absolute Eosinophils 0.09 Absolute Basophils 0.05 RBC Morphology ESR PT INR VBG Lactate Sodium 138 Potassium 3.3 L Chloride 105 Carbon Dioxide 26.9 Anion Gap 6.1 BUN 21 H Creatinine 0.6 Estimated GFR/1.73 m2 >= 60.00 Glucose 85 Calcium 8.2 L Magnesium Total Bilirubin 1.1 H AST 92 H ALT 43 Alkaline Phosphatase 160 H Creatine Kinase Troponin I 0.07 H C-Reactive Protein Total Protein 5.8 L Albumin 1.9 L Procalcitonin Urine Color Urine Clarity Urine pH Ur Specific [place] [address] Urine Protein Urine Ketones Urine Blood Urine Nitrite Urine Bilirubin Urine Urobilinogen Ur Leukocyte Esterase Urine RBC Urine WBC Ur Epithelial Cells Urine Crystals Urine Bacteria Urine Casts Urine Mucus Ur Culture Indicated? Urine Glucose COVID-19 Source SARS-CoV-2 (PCR)
--- NOTE | 2021-05-19 16:43 | W.NEUROCONSU ---
Date of service: 05/19/21 Time of Service: 16:43 Assessment and Plan Assessment and plan (1) Acute confusional state: Status: Acute (2) Non-convulsive status epilepticus: Status: Chronic Assessment and plan: Ms. Duarte is an 86 year-old, right-handed woman admitted with altered mental status in the setting of fever, found down by family. I think encephalopathy can be attributed to fever, both of which have resolved/improved. At baseline, she appears to have cognitive impairment which is being explored as an outpatient. My main concern is why was she on the ground. This could be due to encephalopathy/fever, but given history of epilepsy and non-convulsive status, seizure remains in the differential. She did not want to increase levetiracetam at this time. Plan is to get EEG tomorrow and to reassess. She should not be driving. She is already scheduled for f/up in neurology clinic for 06/14/21 for baseline cognitive testing. History of Present Illness History of Present Illness Chief Complaint: altered mental status Narrative: Handedness: right. HPI: Ms. 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 She had an episode of non-convulsive status epilepticus in November 2020 of unclear etiology, though with multiple contributing factors including liver disease, COVID infection (not associated with seizures at this time), Tramadol use, and hypotension (did not always correlate with seizure activity while inpatient). She underwent COVID vaccine dose #1 on 05/17/21. On the morning of 05/18/21, her son called her. After she did not answer, he went to her home where she was found down, confused. It is not clear how long she was down for. She does not recall how she ended up on the ground. Of note, if/when she falls, she is unable to get up on her own. She states good compliance with her medications including levetiracetam 1000mg BID. Family monitored her at home, noting off/on confusion as well as fever up to 103. At presentation to the ER, Tmax 100.8. Labs included Hgb 9.9 -> 8.9, Plt 136 -> 108, ESR 80, Cr 0.7, Tbili 1.7 -> 1.1, AST 113 -> 92, AlkP 196 -> 160, CK 444, Trop 0.7 x 2, CRP 2.41. -CTH (05/18/21): no acute findings. Noted chronic vascular disease. I reviewed these images personally and this is my personal interpretation. -MRI brain (05/19/21): no acute findings. Moderate atrophy and mild chronic white matter changes. I reviewed these images personally and this is my personal interpretation. Consults Requesting physician: Abel Guzmán Review of Systems All systems reviewed & are unremarkable except as noted in HPI and below PFSH All Active Problems Discharge planning issues (Acute) DVT prophylaxis (Acute) Urinary tract infection (Acute) AMS (altered mental status) (Acute) Elevated troponin (Acute) Febrile illness (Acute) Anemia (Chronic) Edema (Acute) Generalized weakness (Acute) Hypotension (Acute) Encephalopathy acute (Acute) Non-convulsive status epilepticus (Chronic) Acute respiratory failure (Acute) Aspiration pneumonia (Acute) Status epilepticus (Acute) Acute confusional state (Acute) Syncope (Chronic) Anemia (Chronic) Bilateral lower extremity edema (Acute) Left inguinal hernia (Acute) Scar tissue (Acute) Primary biliary cholangitis (Chronic) Carcinoma of left breast (Acute) Epistaxis (Acute) Synovial cyst of left popliteal space (Chronic 09/01/16) Primary osteoarthritis of left knee (Chronic 07/05/17) Osteoarthritis (Chronic) Obesity (Chronic) Intention tremor (Chronic) Hypermetropia (Chronic 10/28/12) Hypercholesterolemia (Chronic) Essential hypertension (Chronic 03/06/13) Diabetes mellitus (Chronic 12/04/12) Asthma (Chronic 03/06/13) 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) Lumbar radiculitis (Chronic) 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) Status post rotator cuff repair (Chronic 06/23/13) Status post excision distal clavicle (Chronic 06/23/13) Asthma (Chronic) Medical History Actinic keratosis Asthma Benign hypertension Chronic pruritus Cortical age-related cataract of both eyes Cortical age-related cataract of both eyes (12/19/16) Diabetes mellitus Diverticulosis Esophageal ulcer Essential hypertension Gastric ulcer Grade II internal hemorrhoids Hypercholesterolemia Hypermetropia Intention tremor Obesity Osteoarthritis Primary osteoarthritis of left knee Synovial cyst of left popliteal space Torn rotator cuff (06/23/13) Repair rotator cuff by Dr. Kaden Escobedo 06-23-2013 Surgical History Biopsy of breast (04/18/17) benign breast tissue with cyst wall Colonoscopy - IV Sedation 10 + years ago- normal Colonoscopy - MAC (12/31/17) EGD - MAC (12/31/17) ganglion, left ankle Nuclear senile cataract Oseotomy (10/06/98) TONNY BILATERAL FEET Rotator Cuff Repair (06/23/13) Right with distal clavical excision Family History Mother , 88 Diabetes Essential hypertension Heart disease Hyperlipidemia Father , 63 Neoplasm BLADDER Sister Hyperlipidemia Breast cancer Brother Diabetes Essential hypertension Hyperlipidemia Neoplasm PROSTATE Prostate cancer Maternal Grandfather No problems noted. Paternal Grandfather No problems noted. Maternal Grandmother Diabetes Paternal Grandmother No problems noted. 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 Pets and animals: Yes Pets and animals: dog(s) Sexually active: No Do you think of yourself as: straight/heterosexual Current gender identity: female What is your relationship status?: How often do you talk on the phone with friends or family?: three or more times per week How often do you get together with friends or relatives?: twice per week How often do you attend amish or anabaptism services?: decline to answer Do you belong to any clubs or organized social groups?: no Panel score (0-1 are the most socially isolated patients): 1 What type of physical activity do you participate in: none Nhung/Mormon: No preference Special nhung needs: No Seatbelt use: always Drive intox or ride w/intox gas 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 driver: No Do you feel safe at home: Yes Do you feel safe in your relationship?: Yes Visit Medication and Allergies Active Medications Generic Name Dose Route Start Last Admin Trade Name Freq PRN Reason Stop Dose Admin Acetaminophen 0 mg 05/18/21 23:08 05/19/21 07:39 Acetaminophen 325 Mg Tab PO 650 mg Q4H PRN PRN Administration Albuterol Sulfate 1 puff 05/18/21 23:15 Albuterol Hfa 8 Gm 60 Puff Inh IH Q6H PRN PRN Aspirin 81 mg 05/19/21 08:30 05/19/21 09:05 Aspirin 81 Mg Chew PO Not Given DAILY [facility] Atorvastatin Calcium 40 mg 05/19/21 20:00 Atorvastatin 40 Mg Tab PO QPM [facility] Cholecalciferol 1,000 units 05/19/21 08:30 05/19/21 09:05 Cholecalciferol (Vitamin D3) 1,000 Unit Tab PO 1,000 units DAILY [facility] Administration Device 1 each 05/18/21 23:45 Inhaler, Assist Device MC DIRECTED [facility] Dextrose 0 gm 05/18/21 23:34 Glucose 40% Oral Solution 15 Gm/37.5 Gm Tube PO DIRECTED PRN Dextrose/Water 0 gm 05/18/21 23:34 Dextrose 50%-Water 25 Gm/50 Ml Syr IVP DIRECTED PRN Dimethicone/Zinc Oxide 0 gm 05/18/21 23:03 Domi Protect Cream 142 Gm Tube TP PRN PRN Furosemide 20 mg 05/19/21 08:30 05/19/21 09:06 Furosemide 20 Mg Tab PO 20 mg DAILY [facility] Administration Gadoterate Meglumine 13 ml 05/19/21 11:45 05/19/21 11:34 Gadoterate Meglumine 20 Ml Vial IVP 06/18/21 23:59 13 ml DIRECTED [facility] Administration Ceftriaxone Sodium/Dextrose 1 gm in 50 mls @ 100 mls/hr 05/19/21 22:00 Rocephin IVPB Q24H [facility] IV Miscellaneous Supplies 1 each 05/18/21 21:15 Iv Access IV DIRECTED [facility] Insulin Aspart 0 units 05/19/21 08:00 05/19/21 12:11 Insulin Aspart 300 Units/3 Ml Pen SC Not Given 0800,1200,1700 [facility] Protocol Levetiracetam 1,000 mg 05/19/21 08:30 05/19/21 09:05 Levetiracetam 500 Mg Tab PO 1,000 mg BID [facility] Administration Pt's Own ( 1 each 05/19/21 08:30 05/19/21 09:09 Anastrozole [ PO Not Given Arimidex] 1 Mg DAILY [facility] Tablet) Polyethylene Glycol 17 gm 05/18/21 23:08 Polyethylene Glycol 3350 17 Gm Packet PO DAILY PRN PRN Constipation Potassium Chloride 10 meq 05/19/21 08:30 05/19/21 09:05 Potassium Chloride 10 Meq Capcr PO 10 meq DAILY [facility] Administration Sodium Chloride 0 ml 05/19/21 08:23 05/19/21 11:36 Normal Saline Flush 10 Ml Syr IVP 10 ml PRN PRN Administration Ursodiol 300 mg 05/19/21 08:30 12 13:36 Ursodiol 300 Mg Cap PO 300 mg TID [facility] Administration Allergies bee venom protein (honey bee) Allergy (Severe, Verified 05/18/21 23:36) Anaphylaxsis hornet venom Allergy (Severe, Verified 05/18/21 23:36) Anaphylaxsis oxycodone Allergy (Intermediate, Verified 05/18/21 23:36) Severe itching red yeast rice Allergy (Uncoded 05/18/21 23:36) rash Exam Narrative Exam Narrative: Physical Exam: Constitutional: Patient of apparent stated age, well nourished, well developed, no acute distress Neck: Supple, no meningismus CV: RRR, S1, S2, no murmur Resp: CTAB Abd: Soft, nontender, nondistended Extrem: diffuse bilateral LE edema Neuro: MS/Language/Speech: Alert, oriented to self and place, clear language (fluency and comprehension), no dysarthria; slightly confused CN: PERRL, EOMI, visual coe full, trigeminal sensation intact, no facial asymmetry, hearing intact, palate elevates symmetrically, tongue protrudes midline, SCM and trap strength intact Motor: Normal bulk and tone. FMM intact, no pronator drift. 5/5 strength in bilateral upper and lower extremities. Sensation: Intact to light touch throughout Reflexes: absent LE reflexes complicated by diffuse LE edema; toes downgoing bilaterally Coordination: Finger to nose performed without dysmetria Gait: not tested Results Last Vital Signs Temp 98.1 F 05/19/21 16:06 Pulse 85 05/19/21 16:06 Resp 16 05/19/21 16:06 BP 142/69 H 05/19/21 16:06 Pulse Ox 98 05/19/21 16:06 Labs Result diagrams: 05/19/21 07:30 05/19/21 07:30 Labs: Laboratory Results - last 24 hr 05/18/21 05/18/21 05/18/21 21:10 21:15 21:30 WBC RBC Hgb Hct MCV MCH MCHC RDW Plt Count MPV Immature Gran % Neutrophils % Lymphocytes % Atypical Lymphs % Monocytes % Eosinophils % Basophils % Myelocytes % Nucleated RBC % Absolute Neutrophils Absolute Lymphocytes Absolute Monocytes Absolute Eosinophils Absolute Basophils RBC Morphology ESR PT INR VBG Lactate Sodium Potassium Chloride Carbon Dioxide Anion Gap BUN Creatinine Estimated GFR/1.73 m2 Glucose Calcium Magnesium Total Bilirubin AST ALT Alkaline Phosphatase Creatine Kinase Troponin I C-Reactive Protein Total Protein Albumin Procalcitonin 0.3 Urine Color Yellow Urine Clarity Sl Cloudy Urine pH 6.5 Ur Specific [place] 1.025 Urine Protein 30 H Urine Ketones Negative Urine Blood Trace-intact H Urine Nitrite Negative Urine Bilirubin Negative Urine Urobilinogen 1.0 H Ur Leukocyte Esterase Trace H Urine RBC 0-2 Urine WBC 10-20 H Ur Epithelial Cells Rare Urine Crystals Negative Urine Bacteria Many Urine Casts Negative Urine Mucus Negative Ur Culture Indicated? Yes Urine Glucose Negative COVID-19 Source Nasal/Nares SARS-CoV-2 (PCR) Negative 05/18/21 05/18/21 05/18/21 21:30 21:30 21:30 WBC 8.98 RBC 3.59 L Hgb 9.9 L Hct 30.8 L MCV 85.8 MCH 27.6 MCHC 32.1 RDW 16.2 H Plt Count 136 MPV 11.0 Immature Gran % 0.0 Neutrophils % 78.0 Lymphocytes % 9.0 Atypical Lymphs % 3 Monocytes % 7.0 Eosinophils % 2.0 Basophils % 0.0 Myelocytes % 1 Nucleated RBC % 0 Absolute Neutrophils 7.00 H Absolute Lymphocytes 1.08 L Absolute Monocytes 0.63 Absolute Eosinophils 0.18 Absolute Basophils 0.00 RBC Morphology Normal ESR PT INR VBG Lactate 2.0 H Sodium 136 Potassium 3.5 Chloride 100 Carbon Dioxide 26.7 Anion Gap 9.3 BUN 19 H Creatinine 0.7 Estimated GFR/1.73 m2 >= 60.00 Glucose 122 H Calcium 8.4 L Magnesium 1.9 Total Bilirubin 1.7 H AST 113 H ALT 55 Alkaline Phosphatase 196 H Creatine Kinase Troponin I 0.07 H C-Reactive Protein 2.41 H Total Protein 7.0 Albumin 2.3 L Procalcitonin Urine Color Urine Clarity Urine pH Ur Specific [place] Urine Protein Urine Ketones Urine Blood Urine Nitrite Urine Bilirubin Urine Urobilinogen Ur Leukocyte Esterase Urine RBC Urine WBC Ur Epithelial Cells Urine Crystals Urine Bacteria Urine Casts Urine Mucus Ur Culture Indicated? Urine Glucose COVID-19 Source SARS-CoV-2 (PCR) 05/18/21 05/18/21 05/18/21 21:30 21:30 21:30 WBC RBC Hgb Hct MCV MCH MCHC RDW Plt Count MPV Immature Gran % Neutrophils % Lymphocytes % Atypical Lymphs % Monocytes % Eosinophils % Basophils % Myelocytes % Nucleated RBC % Absolute Neutrophils Absolute Lymphocytes Absolute Monocytes Absolute Eosinophils Absolute Basophils RBC Morphology ESR 80 H PT 13.3 H INR 1.3 H VBG Lactate Sodium Potassium Chloride Carbon Dioxide Anion Gap BUN Creatinine Estimated GFR/1.73 m2 Glucose Calcium Magnesium Total Bilirubin AST ALT Alkaline Phosphatase Creatine Kinase 444 H Troponin I C-Reactive Protein Total Protein Albumin Procalcitonin Urine Color Urine Clarity Urine pH Ur Specific [place] Urine Protein Urine Ketones Urine Blood Urine Nitrite Urine Bilirubin Urine Urobilinogen Ur Leukocyte Esterase Urine RBC Urine WBC Ur Epithelial Cells Urine Crystals Urine Bacteria Urine Casts Urine Mucus Ur Culture Indicated? Urine Glucose COVID-19 Source SARS-CoV-2 (PCR) 05/19/21 05/19/21 05/19/21 00:10 07:30 07:30 WBC 5.97 D RBC 3.17 L Hgb 8.9 L Hct 27.3 L MCV 86.1 MCH 28.1 MCHC 32.6 RDW 16.6 H Plt Count 108 L MPV 11.3 H Immature Gran % 0.3 Neutrophils % 71.1 Lymphocytes % 12.9 Atypical Lymphs % Monocytes % 13.4 Eosinophils % 1.5 Basophils % 0.8 Myelocytes % Nucleated RBC % 0 Absolute Neutrophils 4.24 Absolute Lymphocytes 0.77 L Absolute Monocytes 0.80 Absolute Eosinophils 0.09 Absolute Basophils 0.05 RBC Morphology ESR PT INR VBG Lactate Sodium 138 Potassium 3.3 L Chloride 105 Carbon Dioxide 26.9 Anion Gap 6.1 BUN 21 H Creatinine 0.6 Estimated GFR/1.73 m2 >= 60.00 Glucose 85 Calcium 8.2 L Magnesium Total Bilirubin 1.1 H AST 92 H ALT 43 Alkaline Phosphatase 160 H Creatine Kinase Troponin I 0.07 H C-Reactive Protein Total Protein 5.8 L Albumin 1.9 L Procalcitonin Urine Color Urine Clarity Urine pH Ur Specific [place] Urine Protein Urine Ketones Urine Blood Urine Nitrite Urine Bilirubin Urine Urobilinogen Ur Leukocyte Esterase Urine RBC Urine WBC Ur Epithelial Cells Urine Crystals Urine Bacteria Urine Casts Urine Mucus Ur Culture Indicated? Urine Glucose COVID-19 Source SARS-CoV-2 (PCR)
--- NOTE | 2021-05-19 17:16 | W.PM.PROGNOT ---
Date of Service Date of service: 05/19/21 Time of Service: 17:16 Assessment and Plan Assessment and plan (1) AMS (altered mental status): Status: Acute Assessment and plan: Probable febrile delirium. Discussed with Dr Hernandez. It is hard to fully r/o seizure as the patient has no recollection of events. Await EEG. I question whether she truly had a UTI without any urinary sx, but her procalcitonin is positive, so we will continue abx. The Patient is back to baseline. MRI negative. (2) Urinary tract infection: Status: Acute Assessment and plan: present on admission GNR>100,000 CFU. Continue empiric rocephin, await culture results. (3) Non-convulsive status epilepticus: Status: Chronic Assessment and plan: Post COVID infection. Continue anticonvulsants. Check EEG. (4) Generalized weakness: Status: Acute Assessment and plan: PT consulted (5) DVT prophylaxis: Status: Acute Assessment and plan: SC heparin (monitoring plts) (6) Discharge planning issues: Status: Acute Assessment and plan: Full code Palliative care consulted Anticipate discharge home tomorrow Subjective Subjective Interval history since last seen: Ms Duarte is back to baseline. She denies ever having urinary symptoms. She does not have a recolection as to how she ended up on the floor of the bathroom at home. Denies dizziness, headache, chest pain, endorses chronic shortness of breath post COVID, denies nausea. We had a conversation about when she should get her 2nd dose of moderna (4 weeks from original dose). Exam Narrative Exam Narrative: General: Pleasant elderly female with essential tremor, A&Ox3, NAD HEENT: EOMI, MMM Heart: RRR, no m/r/g Lungs: coarse breath sounds B Abdomen: soft, nontender, nondistended Extremities: 2+ BLE edema, symmetric Objective Last Vital Signs Temp 36.7 C 05/19/21 16:06 Pulse 85 05/19/21 16:06 Resp 16 05/19/21 16:06 BP 142/69 H 05/19/21 16:06 Pulse Ox 98 05/19/21 16:06 Laboratory Results - last 24 hr 05/18/21 05/18/21 05/18/21 21:10 21:15 21:30 WBC RBC Hgb Hct MCV MCH MCHC RDW Plt Count MPV Immature Gran % Neutrophils % Lymphocytes % Atypical Lymphs % Monocytes % Eosinophils % Basophils % Myelocytes % Nucleated RBC % Absolute Neutrophils Absolute Lymphocytes Absolute Monocytes Absolute Eosinophils Absolute Basophils RBC Morphology ESR PT INR VBG Lactate Sodium Potassium Chloride Carbon Dioxide Anion Gap BUN Creatinine Estimated GFR/1.73 m2 Glucose Calcium Magnesium Total Bilirubin AST ALT Alkaline Phosphatase Creatine Kinase Troponin I C-Reactive Protein Total Protein Albumin Procalcitonin 0.3 Urine Color Yellow Urine Clarity Sl Cloudy Urine pH 6.5 Ur Specific [place] 1.025 Urine Protein 30 H Urine Ketones Negative Urine Blood Trace-intact H Urine Nitrite Negative Urine Bilirubin Negative Urine Urobilinogen 1.0 H Ur Leukocyte Esterase Trace H Urine RBC 0-2 Urine WBC 10-20 H Ur Epithelial Cells Rare Urine Crystals Negative Urine Bacteria Many Urine Casts Negative Urine Mucus Negative Ur Culture Indicated? Yes Urine Glucose Negative COVID-19 Source Nasal/Nares SARS-CoV-2 (PCR) Negative 05/18/21 05/18/21 05/18/21 21:30 21:30 21:30 WBC 8.98 RBC 3.59 L Hgb 9.9 L Hct 30.8 L MCV 85.8 MCH 27.6 MCHC 32.1 RDW 16.2 H Plt Count 136 MPV 11.0 Immature Gran % 0.0 Neutrophils % 78.0 Lymphocytes % 9.0 Atypical Lymphs % 3 Monocytes % 7.0 Eosinophils % 2.0 Basophils % 0.0 Myelocytes % 1 Nucleated RBC % 0 Absolute Neutrophils 7.00 H Absolute Lymphocytes 1.08 L Absolute Monocytes 0.63 Absolute Eosinophils 0.18 Absolute Basophils 0.00 RBC Morphology Normal ESR PT INR VBG Lactate 2.0 H Sodium 136 Potassium 3.5 Chloride 100 Carbon Dioxide 26.7 Anion Gap 9.3 BUN 19 H Creatinine 0.7 Estimated GFR/1.73 m2 >= 60.00 Glucose 122 H Calcium 8.4 L Magnesium 1.9 Total Bilirubin 1.7 H AST 113 H ALT 55 Alkaline Phosphatase 196 H Creatine Kinase Troponin I 0.07 H C-Reactive Protein 2.41 H Total Protein 7.0 Albumin 2.3 L Procalcitonin Urine Color Urine Clarity Urine pH Ur Specific [place] Urine Protein Urine Ketones Urine Blood Urine Nitrite Urine Bilirubin Urine Urobilinogen Ur Leukocyte Esterase Urine RBC Urine WBC Ur Epithelial Cells Urine Crystals Urine Bacteria Urine Casts Urine Mucus Ur Culture Indicated? Urine Glucose COVID-19 Source SARS-CoV-2 (PCR) 05/18/21 05/18/21 05/18/21 21:30 21:30 21:30 WBC RBC Hgb Hct MCV MCH MCHC RDW Plt Count MPV Immature Gran % Neutrophils % Lymphocytes % Atypical Lymphs % Monocytes % Eosinophils % Basophils % Myelocytes % Nucleated RBC % Absolute Neutrophils Absolute Lymphocytes Absolute Monocytes Absolute Eosinophils Absolute Basophils RBC Morphology ESR 80 H PT 13.3 H INR 1.3 H VBG Lactate Sodium Potassium Chloride Carbon Dioxide Anion Gap BUN Creatinine Estimated GFR/1.73 m2 Glucose Calcium Magnesium Total Bilirubin AST ALT Alkaline Phosphatase Creatine Kinase 444 H Troponin I C-Reactive Protein Total Protein Albumin Procalcitonin Urine Color Urine Clarity Urine pH Ur Specific [place] Urine Protein Urine Ketones Urine Blood Urine Nitrite Urine Bilirubin Urine Urobilinogen Ur Leukocyte Esterase Urine RBC Urine WBC Ur Epithelial Cells Urine Crystals Urine Bacteria Urine Casts Urine Mucus Ur Culture Indicated? Urine Glucose COVID-19 Source SARS-CoV-2 (PCR) 05/19/21 05/19/21 05/19/21 00:10 07:30 07:30 WBC 5.97 D RBC 3.17 L Hgb 8.9 L Hct 27.3 L MCV 86.1 MCH 28.1 MCHC 32.6 RDW 16.6 H Plt Count 108 L MPV 11.3 H Immature Gran % 0.3 Neutrophils % 71.1 Lymphocytes % 12.9 Atypical Lymphs % Monocytes % 13.4 Eosinophils % 1.5 Basophils % 0.8 Myelocytes % Nucleated RBC % 0 Absolute Neutrophils 4.24 Absolute Lymphocytes 0.77 L Absolute Monocytes 0.80 Absolute Eosinophils 0.09 Absolute Basophils 0.05 RBC Morphology ESR PT INR VBG Lactate Sodium 138 Potassium 3.3 L Chloride 105 Carbon Dioxide 26.9 Anion Gap 6.1 BUN 21 H Creatinine 0.6 Estimated GFR/1.73 m2 >= 60.00 Glucose 85 Calcium 8.2 L Magnesium Total Bilirubin 1.1 H AST 92 H ALT 43 Alkaline Phosphatase 160 H Creatine Kinase Troponin I 0.07 H C-Reactive Protein Total Protein 5.8 L Albumin 1.9 L Procalcitonin Urine Color Urine Clarity Urine pH Ur Specific [place] Urine Protein Urine Ketones Urine Blood Urine Nitrite Urine Bilirubin Urine Urobilinogen Ur Leukocyte Esterase Urine RBC Urine WBC Ur Epithelial Cells Urine Crystals Urine Bacteria Urine Casts Urine Mucus Ur Culture Indicated? Urine Glucose COVID-19 Source SARS-CoV-2 (PCR)
[2021-05-19] MEDS: Heparin 5,000 UNITS/ML VIAL 5000 UNITS SC (18:06)
[2021-05-19] MEDS: Atorvastatin 40 MG TAB PO (20:22)
[2021-05-20] MEDS: Heparin 5,000 UNITS/ML VIAL 5000 UNITS SC (05:37)
[2021-05-20 07:12] LABS: Abs Immature Grans 0.01 10^3/uL (0.0-0.06); Absolute Basophil Count 0.05 10^3/uL (0.0-0.2); Absolute Lymphocyte Count 1.22 10^3/uL (1.2-3.4); Absolute Monocyte Count 0.73 10^3/uL (0.1-0.8); Absolute Neutrophil Count 3.15 10^3/uL (1.2-6.7); Basophils % 0.9; Eosinophils % 7.2; HCT 27.7 % (36.0-46.0); HGB 8.7 g/dL (11.2-15.7); Immature Grans % 0.2; Lymphocytes % 21.9; MCH 27.2 pg (27.0-33.0); MCHC 31.4 % (32.0-36.0); MCV 86.6 fL (80-95); Monocytes % 13.1; Neutrophils % 56.7; Nucleated RBC 0 %; Platelet Count 105 10^3/uL (130-400); RDW 16.6 % (11.7-14.6); RDW-SD 52.1 fL; WBC 5.56 10^3/uL (4.4-10.8)
[2021-05-20 07:30] LABS: BUN 19 mg/dL (7-18); CREATININE 0.7 mg/dL (0.55-1.02); Calcium 7.9 mg/dL (8.5-10.1); Chloride 107 mmol/L (98-107); Glucose 88 mg/dL (74-106); Potassium 3.7 mmol/L (3.5-5.1); Sodium 140 mmol/L (136-145)
[2021-05-20 08:10] VITALS: BP 113/70; PULSE 82; RESP 16; TEMP 36.4; O2SAT 96
[2021-05-20] MEDS: Ursodiol 300 MG CAP PO (09:50)
[2021-05-20] MEDS: Cholecalciferol (Vitamin D3) 1,000 UNIT TAB 1000 UNITS PO (09:51)
[2021-05-20] MEDS: Furosemide 20 MG TAB PO (09:51)
[2021-05-20] MEDS: Aspirin 81 MG CHEW PO (09:51)
[2021-05-20] MEDS: Potassium Chloride 10 MEQ CAPCR PO (09:51)
[2021-05-20] MEDS: levETIRAcetam 500 MG TAB 1000 MG PO (09:51)
--- NOTE | 2021-05-20 10:15 | PDOC.EEG ---
Neurology EEG EEG: [facility] Department of Neurology INPATIENT EEG REPORT Date of Recordin05/20/21 Interpreting Physician: Dr. Mikala Hernandez Reason for study: Ms. Duarte is an 86 year-old woman with prior subclinical status epilepticus who was admitted with altered mental status. Current Medications: Current Medications Acetaminophen (Acetaminophen 325 Mg Tab) 0 mg PO Q4H PRN PRN Last Admin: 05/19/21 20:22 Dose: 650 mg Documented by: Albuterol Sulfate (Albuterol Hfa 8 Gm 60 Puff Inh) 1 puff IH Q6H PRN PRN Aspirin (Aspirin 81 Mg Chew) 81 mg PO DAILY [facility] Last Admin: 05/20/21 09:51 Dose: 81 mg Documented by: Atorvastatin Calcium (Atorvastatin 40 Mg Tab) 40 mg PO QPM [facility] Last Admin: 05/19/21 20:22 Dose: 40 mg Documented by: Cholecalciferol (Cholecalciferol (Vitamin D3) 1,000 Unit Tab) 1,000 units PO DAILY [facility] Last Admin: 05/20/21 09:51 Dose: 1,000 units Documented by: Device (Inhaler, Assist Device) 1 each MC DIRECTED [facility] Dextrose (Glucose 40% Oral Solution 15 Gm/37.5 Gm Tube) 0 gm PO DIRECTED PRN Dextrose/Water (Dextrose 50%-Water 25 Gm/50 Ml Syr) 0 gm IVP DIRECTED PRN Dimethicone/Zinc Oxide (Domi Protect Cream 142 Gm Tube) 0 gm TP PRN PRN Furosemide (Furosemide 20 Mg Tab) 20 mg PO DAILY [facility] Last Admin: 05/20/21 09:51 Dose: 20 mg Documented by: Gadoterate Meglumine (Gadoterate Meglumine 20 Ml Vial) 13 ml IVP DIRECTED [facility] Stop: 06/18/21 23:59 Last Admin: 05/19/21 11:34 Dose: 13 ml Documented by: Heparin Sodium (Porcine) (Heparin 5,000 Units/Ml Vial) 5,000 units SC Q12H [facility] Last Admin: 05/20/21 05:37 Dose: 5,000 units Documented by: Ceftriaxone Sodium/Dextrose (Rocephin) 1 gm in 50 mls @ 100 mls/hr IVPB Q24H [facility] Last Infusion: 05/19/21 22:50 Dose: Infused Documented by: IV Miscellaneous Supplies (Iv Access) 1 each IV DIRECTED [facility] Insulin Aspart (Insulin Aspart 300 Units/3 Ml Pen) 0 units SC 0800,1200,1700 [facility]; Protocol Last Admin: 05/20/21 07:42 Dose: Not Given Documented by: Levetiracetam (Levetiracetam 500 Mg Tab) 1,000 mg PO BID [facility] Last Admin: 05/20/21 09:51 Dose: 1,000 mg Documented by: Pt's Own ( Anastrozole [ Arimidex] 1 Mg Tablet) 1 each PO DAILY [facility] Last Admin: 05/19/21 09:09 Dose: Not Given Documented by: Polyethylene Glycol (Polyethylene Glycol 3350 17 Gm Packet) 17 gm PO DAILY PRN PRN PRN Reason: Constipation Potassium Chloride (Potassium Chloride 10 Meq Capcr) 10 meq PO DAILY [facility] Last Admin: 05/20/21 09:51 Dose: 10 meq Documented by: Sodium Chloride (Normal Saline Flush 10 Ml Syr) 0 ml IVP PRN PRN Last Admin: 05/19/21 21:53 Dose: 10 ml Documented by: Ursodiol (Ursodiol 300 Mg Cap) 300 mg PO TID [facility] Last Admin: 05/20/21 09:50 Dose: 300 mg Documented by: METHODS: A 21 channel digitized electroencephalogram was performed in the [facility] Med/Surg Floor or ICU. The 10/20 international system of electrode placement was used and bipolar and referential electrode montages were recorded. In addition to EEG the patient was monitored for EKG and lateral/vertical eye movements. Activation procedures of photic stimulation and hyperventilation were performed if applicable. Video was used during activation procedures and during events where applicable. The duration of the recording was 30 minutes. DESCRIPTION OF EEG: The patient was noted to be awake, drowsy, and asleep during the recording. During maximal wakefulness a 7-8-Hz posterior background rhythm was present which was well-modulated, symmetrical, reactive to eye opening, and of moderate voltage. With eye opening the background activity changed to a low voltage mixture of alpha, beta, and occasional theta range frequencies. Faster frequencies were present in the bilateral anterior head regions. There was a normal anterior-posterior voltage gradient. During drowsiness, there was attenuation of the posterior dominant background rhythm and vertex waves. Stage II sleep was present with symmetrical sleep spindles, K-complexes, and vertex waves. Activating Procedures: Photic stimulation was performed which produced a symmetrical posterior driving response at various flash frequencies. Hyperventilation was not performed. EKG: EKG revealed normal sinus rhythm. INTERPRETATION: This EEG is abnormal due to slowing of the background rhythm. PRIOR EEG: -EEG (11/26/20): GPEDs + TW (generalized periodic epileptiform discharges with triphasic morphology), with some sharp components; c/w SE -EEG (11/26/20-11/27/20): periods of GPEDs + TW (generalized periodic epileptiform discharges with triphasic morphology), with some sharp components - consistent with subclinical status epilepticus - alternating with periods of burst suppression. At the end of the recording, the patient was no longer in suppression as the ictal state was re-emerging. CLINICAL CORRELATION: The background slowing is suggestive of a mild diffuse cerebral encephalopathy of broad differential including toxic-metabolic etiology. Mild cognitive impairment/dementia could also explain findings. No focal regions of cerebral dysfunction or epileptiform activity was present. Clinical correlation is advised. Mikala Hernandez MD
--- NOTE | 2021-05-20 10:22 | PT.INIE ---
Date of service: 05/20/21 Time of Service: 10:22 PT Notes Visit Reasons: Urinary Tract Infection,Altered Mental Status Physical Therapy Inpatient Initial Evaluation Date: 05/20/2021 Referring Doctor: Mariel Rehman MD PT Orders: PT CONSULT: Limited ability Precautions: Fall. Standard. Activity as tolerated. Patient Profile/Admitting Diagnosis: 86-year-old female presented to the ED on 05/18/2020 altered mental status after having found by family member on the bathroom floor. Patient states urinary tract infection, carcinoma of left breast, and status epilepticus. [facility] Active Problem List Urinary tract infection (Acute) AMS (altered mental status) (Acute) Elevated troponin (Acute) Febrile illness (Acute) Anemia (Chronic) Edema (Acute) Generalized weakness (Acute) Hypotension (Acute) Encephalopathy acute (Acute) Non-convulsive status epilepticus (Acute) Acute respiratory failure (Acute) Aspiration pneumonia (Acute) Status epilepticus (Acute) Acute confusional state (Acute) Syncope (Chronic) Anemia (Chronic) Bilateral lower extremity edema (Acute) Left inguinal hernia (Acute) Scar tissue (Acute) Primary biliary cholangitis (Chronic) Carcinoma of left breast (Acute) Epistaxis (Acute) Synovial cyst of left popliteal space (Chronic 09/01/16) Primary osteoarthritis of left knee (Chronic 07/05/17) Osteoarthritis (Chronic) Obesity (Chronic) Intention tremor (Chronic) Hypermetropia (Chronic 10/28/12) Hypercholesterolemia (Chronic) Essential hypertension (Chronic 03/06/13) Diabetes mellitus (Chronic 12/04/12) Asthma (Chronic 03/06/13) 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) Lumbar radiculitis (Chronic) 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) Status post rotator cuff repair (Chronic 06/23/13) Status post excision distal clavicle (Chronic 06/23/13) Asthma (Chronic) Medical History Actinic keratosis Asthma Benign hypertension Chronic pruritus Cortical age-related cataract of both eyes Cortical age-related cataract of both eyes (12/19/16) Diabetes mellitus Diverticulosis Esophageal ulcer Essential hypertension Gastric ulcer Grade II internal hemorrhoids Hypercholesterolemia Hypermetropia Intention tremor Obesity Osteoarthritis Primary osteoarthritis of left knee Synovial cyst of left popliteal space Torn rotator cuff (06/23/13) Repair rotator cuff by Dr. Kaden Escobedo 06-23-2013 Surgical History Biopsy of breast (04/18/17) benign breast tissue with cyst wall Colonoscopy - IV Sedation 10 + years ago- normal Colonoscopy - MAC (12/31/17) EGD - MAC (12/31/17) ganglion, left ankle Nuclear senile cataract Oseotomy (10/06/98) TONNY BILATERAL FEET Rotator Cuff Repair (06/23/13) Right with distal clavical excision Social History/Home Situation: Independent with all aspects of ADLs prior to admission. Patient states that she very rarely uses her FWW nor her cane at home. has good family support. Equipment Owned/DME: FWW, SPC Subjective: Reports that she does not feel any difference in strength before she came to the [facility] and today, she does not feel that she has strength issues. States that she has always had headache and back ache on and off in the past. At time of evaluation, she states that everything is okay, no pain. Objective: General Observation: Seated on bedside chair. Swelling and beginning fibrosis in skin to B legs, mildly erythematous. Mental Status: Alert and oriented as to person, place, time, and purpose. Able to pay attention, focus, and respond appropriately. Pain: 0/10 ROM: Right Upper Extremity: Shoulder Flexion WFL. Shoulder abduction WFL. Elbow flexion WFL. Wrist flexion WFL. Functional opening and closing of hand WFL. Left Upper Extremity: Shoulder Flexion WFL. Shoulder abduction WFL. Elbow flexion WFL. Wrist flexion WFL. Functional opening and closing of hand WFL. Right Lower Extremity: Hip flexion WFL. Hip abduction WFL. Knee flexion WFL. Ankle dorsiflexion WFL. Ankle plantarflexion WFL. Left Lower Extremity: Hip flexion WFL. Hip abduction WFL. Knee flexion WFL. Ankle dorsiflexion WFL. Ankle plantarflexion WFL. Strength: Right Upper Extremity: Shoulder flexors 4/5. Shoulder abductors 4/5. Elbow flexors 5/5. Elbow extensors 4/5. Magazine Journalist strong. Left Upper Extremity: Shoulder flexors 4/5. Shoulder abductors 4/5. Elbow flexors 5/5. Elbow extensors 4/5. Magazine Journalist strong. Right Lower Extremity: Hip flexors 4-/5. Hip abductors 4-/5. Knee flexors 4-/5. Knee extensors 4-/5. Ankle dorsiflexors 4-/5. Ankle plantarflexors 4-/5. Left Lower Extremity: Hip flexors 4-/5. Hip abductors 4-/5. Knee flexors 4-/5. Knee extensors 4-/5. Ankle dorsiflexors 4-/5. Ankle plantarflexors 4-/5. Bed Mobility/Transfers: Rolling independent Supine to sit independent Sit to supine independent Sit to stand with independent Stand to sit with independent Bed to reclining chair independent Gait: Instructed patient with level surface ambulation of 200 feet requiring supervision assist. Less waddling, no path deviation, and more upright with use of FWW than without. Balance: Static Sitting: Normal Dynamic Sitting: Normal Static Standing: Fair Dynamic Standing: Fair Special Tests: Mobility Limitations Standardized Measure [facility] AM-PAC 6 clicks Basic Mobility Inpatient Short Form: Raw Score: 23 CMS Score: 11% deficit 4-Stage Balance Test: Unable to maintain semi-tandem, tandem, and one legged stance for 10 seconds indicating a risk for falls. Informed Consent/Education: Patient was instructed in purpose of PT consult and plan of care. Agreeable to proceed with established PT POC to achieve personal goals. Assessment: Patient is able to walk safer and longer with use of FWW than without. Has equipment she needs at home. Patient presents with clinical signs and symptoms consistent with current/admitting diagnoses that have resulted to mobility limitations, gait instability, generalized weakness, and overall ADL decline as demonstrated by the following impairment level findings: 1. Impaired sitting/standing balance 2. Swelling in B LE Impairments are contributing to the following functional limitations: 1. Difficulty with ambulation without assistive device 2. Increased completion time for mobility ADL performance 3. Increased risk for falls Patient is assessed as a 16176 moderate complexity based on the following: History: 86-year-old female with past medical history as indicated above Examination: Demonstrable impairment in strength, balance, and mobility level with underlying impairments and functional limitations as exhibited above as well as deficit score of 11% utilizing the [facility] Mobility Inpatient Short Form Presentation: Evolving Decision Makin moderate complexity Goals: Goals X1 week 1. Supine-Sit independent 2. Sit-Supine independent 3. Sit-Stand independent 4. Stand-Sit independent with FWW 5. Bed-Chair independent with FWW 6. Chair-Bed independent with FWW 7. Independent gait on level surface with use of FWW for at least 100 feet without report of pain nor dyspnea Plan of Care/Treatment Plan: 1-2x/day, 7 days/week x 1 week. Plan of care has been reviewed with the FREIGHT RATE ANALYST providing the service under Physical Therapy direction. Initiate Physical Therapy intervention for pain management as needed, strengthening, bed mobility, transfers, gait, stairs, balance training, and use of assistive device. DISCHARGE RECOMMENDATIONS: [] Home with no services [] [X] Home with services. Home when medically cleared by hospitalist. Patient will benefit from home health PT services in order to progress mobility level using least restrictive assistive ambulatory device, assess home safety, identify additional equipment needs, and establish a functional maintenance program that will increase ability of patient to remain at home. [] Home with outpatient PT [] [] SNF for continued rehabilitation [] [] Care Home Care [] [] SNF versus LTC based on ability to participate and progress [] TREATMENT CODE/TIME: 12116 x 27 minutes beginning at 10:22 AM. Thank you for the opportunity to participate in the care of this patient. Mary Shelley PT, DPT, CLT [facility] [place], [place]
--- NOTE | 2021-05-20 11:00 | W.PM.DS.N ---
Date of service: 05/20/21 Time of Service: 11:07 DS: Diagnosis Discharge Diagnosis (1) Urinary tract infection: Start date: 05/20/21 Start time: 11:07 Status: Acute Asessment and Plan: Growing e.coli, spoke with micro, appears to be e.coli. On ceftriaxone. Will switch to cefpodixime oral 100 mg BID. Urinary cx revealing greater than 100 colonies. Afebrile x 48 hours. Will also send with probiotic She has appt with PCP on Sunday, will keep f/u (2) AMS (altered mental status): Start date: 05/20/21 Start time: 11:09 Status: Resolved Asessment and Plan: AAOx3, encephalopathy likely from UTI. as above (3) Generalized weakness: Start date: 05/20/21 Start time: 11:24 Status: Acute Asessment and Plan: improved. PT recommends HH PT, will order HH services (4) History of COVID-19: Start date: 05/20/21 Start time: 11:25 Status: Resolved Asessment and Plan: Continues to have SOB and issues post COVID. Outpatient work being done. 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 Hernandez. However does reveal starting dementia. Will need follow up with PCP (6) Palliative care patient: Start date: 05/20/21 Start time: 11:27 Status: Acute Asessment and Plan: Continue to follow in the community Discussed with Dr. Rehman Discharge Plan Disposition Patient Disposition: HOME W/HOME HEALTH SERVICE Condition: Improving Discharge Details Reason For Visit: Urinary Tract Infection,Altered Mental Status Admit Date/Time: 05/18/21 23:03 Admit Provider: Abel Guzmán Attending Provider: Abel Guzmán Primary Care Provider: Jose Humphrey Hospital Course Hospital Course: This is an 86 yo female with a PMH of COVID in JUL 2020, status epilepticus, Anemia, Primary biliary cholangitis, obesity, HLD, HTN, DM, Asthma. She presented to the ED via EMS for altered mental status. The son reported she received her first COVID vaccine the day prior to presentation. On the morning of admission she did not answer her phone when he called. The family went to her home and found her on the bathroom floor. It was unclear how long she was there. She was able to get up off the floor on her own even though she stated she could not. She remained altered throughout the day and was noted to have a fever of 103F. She did have a temp of 101F in the ED. Her WBC count was normal. Hgb 9.9. INR 1.3. Lytes normal. Lactate 1.3. Creatinine 0.7. Glucose 122. Total bilirubin 1.7 (ranges from 1.1 to 1.9). AST 113. ALT 55. Troponin 0.07. Procalcitonin 0.3. Creatinine Kinase 444. UA with tr leuk est, neg nitrite, WBC 10-20, Many bacteria. ASA 325mg given in ED. Rocephin 1 gram IV administered in ED. CXR with mild interstitial infiltrates and/or edema. CT head with possible early ischemic changes in the left occipital lobe. No intracranial hemorrhage. Admitted for further workup and treatment. Over course of treatment, she evaluated by Neuro for seizures, EEG revealed no seizures only early dementia. She did have urine cx revealing great than 100 colonies gram negative rods. Micro called, stating this is e.coli, likely pansensitive. Since being on ceftriaxone she has not been afebrile. She is being switched to po cefpodixime BID. Patient worked with PT she did well they do recommend PT. Will order PT, she has appt Sunday. F/u with PCP. she is being discharged home. Home Meds and New Rx's Prescriptions: New aspirin 81 mg Tablet,Chewable 81 mg PO DAILY Qty: 30 RF: 0 cefpodoxime 100 mg tablet 100 mg PO BID Qty: 10 RF: 0 Bio-K plus 50 billion cell capsule,delayed release(DR/EC) 1 cap PO DAILY Qty: 30 RF: 0 Continued ibuprofen 600 mg tablet 600 mg PO TID PRN (Reason: pain) Qty: 90 RF: 3 ursodiol 300 mg capsule 300 mg PO TID RF: 0 anastrozole [Arimidex] 1 mg tablet 1 mg PO DAILY RF: 0 albuterol sulfate [ProAir HFA] 90 mcg/actuation HFA aerosol inhaler 1 puff Inhalation Q6H PRN Qty: 3 RF: 4 levetiracetam 1,000 mg tablet 1,000 mg PO BID Qty: 180 RF: 3 cholecalciferol (vitamin D3) [Vitamin D3] 2,000 UNIT capsule 1,000 unit PO DAILY RF: 0 magnesium amino acid chelate 100 MG tablet 133 mg PO DAILY RF: 0 metformin 500 mg tablet 500 mg PO BID Qty: 180 RF: 4 potassium chloride 10 mEq tablet extended release 10 meq PO DAILY Qty: 90 RF: 3 atorvastatin 40 mg tablet 40 mg PO DAILY Qty: 90 RF: 3 furosemide 20 mg tablet 20 mg PO DAILY Qty: 90 RF: 3 benzonatate 100 mg capsule 100 mg PO TID PRN (Reason: cough) Qty: 30 RF: 0 ibuprofen [Advil] 200 MG tablet 400 mg PO PRN PRNRF: 0 ferrous sulfate [FeroSul] 325 mg (65 mg iron) tablet 325 mg PO Q48H RF: 0 No Action (DME) blood-glucose meter [FreeStyle Lite Meter] 1 EACH kit 1 ea Miscellaneous DAILY Qty: 1 RF: 0 (DME) FreeStyle Lite Strips Strip 1 ea Miscellaneous DAILY Qty: 100 RF: 5 (DME) lancets [FreeStyle Lancets] 28 gauge misc 1 ea Miscellaneous DAILY Qty: 100 RF: 6 Discharge Instructions Instructions: Urinary Tract Infection in Older Adults (DC) Additional Instructions: Follow up with PCP on Sunday as scheduled Stand Alone Forms: Nursing Discharge Form Referrals: Jose Humphrey MD [Primary Care Provider] - (Please follow up on Sunday on scheduled) Activity:: Activity as Tolerated Equipment/Supplies:: No Equipment Needed Diet:: Carb Counting Discharge Orders Discharge Orders: Discharge Order (Routine); Ordered 05/20/21 Ordered By: Kristy Hernandez DS: Summary Time Spent with Patient providing and/or coordinating discharge services: Greater than 30 minutes Status at Discharge Functional status at discharge: uses cane/walker Overall status at discharge: patient is progressing back to baseline Mental Status: mental status grossly normal Speech and Movement: speech and movement normal Mood: congruent mood Affect: normal affect Exam Narrative Exam Narrative: General: Very pleasant, elderly female, sitting up in the chair She is alert and oriented 3 HEENT: Normocephalic, atraumatic, EOMI, mucous membranes moist. Cardiovascular: Heart sounds regular, nontachycardic, + murmur. Respiratory: Respirations appear even and unlabored at rest, + rales left base. GI: +BS, abdomen soft, nontender on palpation, nondistended. Extremities: Moves all 4 extremities freely, 1+ pitting edema bilateral lower extremities. Psych Mental Status: mental status grossly normal Speech and Movement: speech and movement normal Mood: congruent mood Affect: normal affect DS: Data Vitals/I&O Vitals and I&O: Vital Signs Temperature 36.4 C L 05/20/21 08:10 Temperature Source Tympanic 05/20/21 08:10 Pulse 82 05/20/21 08:10 Pulse Rhythm Regular 05/20/21 02:59 Pulse 82 05/19/21 00:50 Respiratory Rate 16 05/20/21 08:10 Respiratory Effort 05/20/21 02:59 Respiratory Depth Normal 05/20/21 02:59 Respiratory Pattern Normal 05/20/21 02:59 Blood Pressure 113/70 05/20/21 08:10 Blood Pressure Mean 58 05/19/21 00:45 Blood Pressure Position Supine 05/18/21 21:00 Pulse Oximetry 96 05/20/21 08:10 Oxygen Delivery Method Room Air 05/20/21 08:10 Oxygen Flow Rate 0 05/20/21 08:10 Pain Level 0 05/20/21 08:10 Intake & Output 05/19/21 05/19/21 05/20/21 11:59 23:59 11:59 Intake Total 1300 / 1850 550 / 1850 600 / 600 Output Total 600 / 600 150 / 150 Balance 700 / 1250 550 / 1250 450 / 450 Weight 66.2 kg 66.3 kg Intake: IV 1050 / 1100 50 / 1100 Oral 250 / 750 500 / 750 600 / 600 Output: Urine 600 / 600 150 / 150 Other: Urine Color Light Uzma Yellow Urine Appearance Cloudy Clear Urine Odor Normal Comment pT flushed before assesment could be made PT went to the bathroom and flushed before able to check Stool Size Small Small Stool Characteristics Soft Voiding Methods Toilet Toilet Toilet Data Completed and Pending Completed studies during hospitalization [Text1]: INDINGS: Heart size is upper normal. The mediastinum is not widened. Elevated right hemidiaphragm is again noted. Increased bilateral interstitial markings in both lung coe again noted. However, this appears slightly increased from the prior study. There are no obvious pleural effusions. Surgical clips are again noted in the left axilla. IMPRESSION: Mild interstitial infiltrates and/or edema. Exam(s) a CT:CT head wo Exam(s) CT HEAD WO EXAM: CT HEAD WO CLINICAL HISTORY: Altered mental status TECHNIQUE: Imaging Protocol: Axial computed tomography images with coronal and sagittal reformatted images were created and reviewed COMPARISON: CT CT HEAD CERVICAL SPINE WO from 11/25/2020 FINDINGS: There are no skull fractures nor fluid in the visualized paranasal sinuses. There is no evidence of intracranial hemorrhage, mass effect, or shift of midline structures. There are no extra-axial fluid collections. The ventricles are not enlarged or shifted and there is no blood within the ventricular system nor within the basal cisterns. IMPRESSION: No acute intracranial findings on this noninfused CT scan of the brain. : 1935ge: 86 Exam(s) Addendum created by Eldon Lopez MD on 05/18/2021 10:33:16 PM EST: THIS REPORT CONTAINS FINDINGS THAT MAY BE CRITICAL TO PATIENT CARE. The findings were verbally communicated via telephone conference with Drew Granados at 10:30 PM EST on 05/18/2021. The findings were acknowledged and understood. Initial report created on 05/18/2021 10:28:39 PM EST: PROCEDURE INFORMATION: Exam: CT Head Without Contrast Exam date and time: 05/18/2021 9:24 PM Age: 86 years old Clinical indication: Other: AMS TECHNIQUE: Imaging protocol: Computed tomography of the head without contrast. Other technique: STROKE PROTOCOL was implemented. COMPARISON: MR BRAIN WO 11/26/2020 12:12 PM FINDINGS: Brain: Negative for intraparenchymal hemorrhage. Negative for loss of martin-white differentiation in the middle cerebral artery territories. There is mild low-attenuation and sulcal effacement in the posterior left occipital lobe, a 3 cm region. Please see branch customer service representative axial image 76 series 5 and coronal image 91 series 7. The patient is obliquely positioned for the exam, and asymmetric streak artifact from the skull may contribute to the finding. The cerebellum and brainstem are unremarkable. Extra-axial space: No evidence of subdural hemorrhage. Cerebral ventricles: No ventriculomegaly. Paranasal sinuses: Visualized sinuses are unremarkable. No fluid levels. Mastoid air cells: Visualized mastoid air cells are well aerated. Bones/joints: Negative for skull fracture. Negative for focal bony lesion. Soft tissues: Unremarkable. IMPRESSION: 1. Negative for intracranial hemorrhage. 2. Unremarkable middle cerebral artery territory. 3. Possible early ischemic changes in the left occipital lobe. ASSESSMENT: ASPECTS ([place] Stroke Program Early CT Score) is 10. This score is for the middle cerebral artery territory. Dictated and Authenticated by: Eldon Lopez MD. : 1935ge: 86 Exam(s) Addendum created by Eldon Lopez MD on 05/18/2021 10:33:16 PM EST: THIS REPORT CONTAINS FINDINGS THAT MAY BE CRITICAL TO PATIENT CARE. The findings were verbally communicated via telephone conference with Drew Granados at 10:30 PM EST on 05/18/2021. The findings were acknowledged and understood. Initial report created on 05/18/2021 10:28:39 PM EST: PROCEDURE INFORMATION: Exam: CT Head Without Contrast Exam date and time: 05/18/2021 9:24 PM Age: 86 years old Clinical indication: Other: AMS TECHNIQUE: Imaging protocol: Computed tomography of the head without contrast. Other technique: STROKE PROTOCOL was implemented. COMPARISON: MR BRAIN WO 11/26/2020 12:12 PM FINDINGS: Brain: Negative for intraparenchymal hemorrhage. Negative for loss of martin-white differentiation in the middle cerebral artery territories. There is mild low-attenuation and sulcal effacement in the posterior left occipital lobe, a 3 cm region. Please see branch customer service representative axial image 76 series 5 and coronal image 91 series 7. The patient is obliquely positioned for the exam, and asymmetric streak artifact from the skull may contribute to the finding. The cerebellum and brainstem are unremarkable. Extra-axial space: No evidence of subdural hemorrhage. Cerebral ventricles: No ventriculomegaly. Paranasal sinuses: Visualized sinuses are unremarkable. No fluid levels. Mastoid air cells: Visualized mastoid air cells are well aerated. Bones/joints: Negative for skull fracture. Negative for focal bony lesion. Soft tissues: Unremarkable. IMPRESSION: 1. Negative for intracranial hemorrhage. 2. Unremarkable middle cerebral artery territory. 3. Possible early ischemic changes in the left occipital lobe. ASSESSMENT: ASPECTS ([place] Stroke Program Early CT Score) is 10. This score is for the middle cerebral artery territory. Dictated and Authenticated by: Eldon Lopez MD. COMPARISON: MR MR BRAIN WO from 11/26/2020 MR MR BRAIN WO from 11/26/[address] HEAD WO from 05/18/[address] HEAD WO from 05/18/2021 FINDINGS: CEREBRAL PARENCHYMA: No evidence of intracranial hemorrhage, mass effect nor shift of midline structure. No extraaxial fluid collections. Ventricles are not enlarged nor shifted. There is no significant focal signal abnormality in the cerebellar hemispheres nor within the tristan, midbrain, and thalami. There is no new abnormal signal abnormality in the periventricular white matter. Few sys small foci of signal abnormality on FLAIR sequence are again noted, unchanged. No evidence of new territorial infarction. Symmetrical age appropriate atrophy noted, unchanged There are no ring enhancing lesions in the brain. There is no abnormal meningeal enhancement. PITUITARY GLAND: No mass nor parasellar abnormality. No obvious abnormality in the cavernous sinuses. FLOW VOIDS: The expected flow void are noted. No evidence of obvious aneurysm nor obvious vascular malformation. PARANASAL SINUSES: The visualized paranasal sinuses present appear unremarkable. Previously present fluid in the left sphenoid sinus is no longer seen. ORBITS: No obvious abnormal findings. IMPRESSION: 1. No new significant finding when compared to the prior MRI scan of 11/26/2020. There is age related medical involutional change again noted unchanged small FLAIR bright foci of white matter signal abnormality but no evidence of new territorial infarction, hemorrhage, nor ring-enhancing lesions in the brain. There is also no abnormal meningeal enhancement, focal nor diffuse. 2. Paranasal sinuses are presently clear. The previously present fluid in the sphenoid sinus is no longer seen. Labs on day of discharge: Labs from last 24 hours 05/20/21 05/20/21 07:00 07:00 WBC 5.56 RBC 3.20 L Hgb 8.7 L Hct 27.7 L MCV 86.6 MCH 27.2 MCHC 31.4 L RDW 16.6 H Plt Count 105 L MPV 12.0 H Immature Gran % 0.2 Neutrophils % 56.7 Lymphocytes % 21.9 Monocytes % 13.1 Eosinophils % 7.2 Basophils % 0.9 Nucleated RBC % 0 Absolute Neutrophils 3.15 Absolute Lymphocytes 1.22 Absolute Monocytes 0.73 Absolute Eosinophils 0.40 Absolute Basophils 0.05 Sodium 140 Potassium 3.7 Chloride 107 Carbon Dioxide 29.0 Anion Gap 4.0 BUN 19 H Creatinine 0.7 Estimated GFR/1.73 m2 >= 60.00 Glucose 88 Calcium 7.9 L Magnesium 2.0 Preliminary micro results at discharge 05/18/21 21:15 Urine Culture - Preliminary Urine - Reflex from Ua Gram Negative Antonio 05/18/21 21:45 Blood Culture - Preliminary Blood NO GROWTH 24 HOURS 05/18/21 21:10 Blood Culture - Preliminary Blood NO GROWTH 24 HOURS PFSH All Active Problems Palliative care patient (Acute) Discharge planning issues (Acute) DVT prophylaxis (Acute) Urinary tract infection (Acute) Elevated troponin (Acute) Febrile illness (Acute) Anemia (Chronic) Edema (Acute) Generalized weakness (Acute) Hypotension (Acute) Encephalopathy acute (Acute) Non-convulsive status epilepticus (Chronic) Acute respiratory failure (Acute) Aspiration pneumonia (Acute) Status epilepticus (Acute) Acute confusional state (Acute) Syncope (Chronic) Anemia (Chronic) Bilateral lower extremity edema (Acute) Left inguinal hernia (Acute) Scar tissue (Acute) Primary biliary cholangitis (Chronic) Carcinoma of left breast (Acute) Epistaxis (Acute) Synovial cyst of left popliteal space (Chronic 09/01/16) Primary osteoarthritis of left knee (Chronic 07/05/17) Osteoarthritis (Chronic) Obesity (Chronic) Intention tremor (Chronic) Hypermetropia (Chronic 10/28/12) Hypercholesterolemia (Chronic) Essential hypertension (Chronic 03/06/13) Diabetes mellitus (Chronic 12/04/12) Asthma (Chronic 03/06/13) 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) Lumbar radiculitis (Chronic) 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) Status post rotator cuff repair (Chronic 06/23/13) Status post excision distal clavicle (Chronic 06/23/13) Asthma (Chronic) Medical History Actinic keratosis Asthma Benign hypertension Chronic pruritus Cortical age-related cataract of both eyes Cortical age-related cataract of both eyes (12/19/16) Diabetes mellitus Diverticulosis Esophageal ulcer Essential hypertension Gastric ulcer Grade II internal hemorrhoids Hypercholesterolemia Hypermetropia Intention tremor Obesity Osteoarthritis Primary osteoarthritis of left knee Synovial cyst of left popliteal space Torn rotator cuff (06/23/13) Repair rotator cuff by Dr. Kaden Escobedo 06-23-2013 Surgical History Biopsy of breast (04/18/17) benign breast tissue with cyst wall Colonoscopy - IV Sedation 10 + years ago- normal Colonoscopy - MAC (12/31/17) EGD - MAC (12/31/17) ganglion, left ankle Nuclear senile cataract Oseotomy (10/06/98) TONNY BILATERAL FEET Rotator Cuff Repair (06/23/13) Right with distal clavical excision Family History Mother , 88 Diabetes Essential hypertension Heart disease Hyperlipidemia Father , 63 Neoplasm BLADDER Sister Hyperlipidemia Breast cancer Brother Diabetes Essential hypertension Hyperlipidemia Neoplasm PROSTATE Prostate cancer Maternal Grandfather No problems noted. Paternal Grandfather No problems noted. Maternal Grandmother Diabetes Paternal Grandmother No problems noted. 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 Pets and animals: Yes Pets and animals: dog(s) Sexually active: No Do you think of yourself as: straight/heterosexual Current gender identity: female What is your relationship status?: How often do you talk on the phone with friends or family?: three or more times per week How often do you get together with friends or relatives?: twice per week How often do you attend shinto or advent services?: decline to answer Do you belong to any clubs or organized social groups?: no Panel score (0-1 are the most socially isolated patients): 1 What type of physical activity do you participate in: none Nhung/Uatsdin: No preference Special nhung needs: No Seatbelt use: always Drive intox or 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
--- NOTE | 2021-05-20 11:56 | PDOC.CMDIS ---
- If Service Date Differs Date of service: 05/20/21 Time of Service: 11:57 LACE Index Scoring Tool - Questions: Length of Stay (in days): 2 Acuity (Admit via E.D.?): Yes Comorbidities: Diabetes w/o Complication E.D. Visits: 2 - Answers: Total Score: 8 Risk of Readmission: Low Risk Care Management Discharge Reason for Hospitalization: AMS Discharge Plan: Elian will be discharged home with new home health services for PT. She verbalized that she does not feel she needs this service but, since it is recommended, she will try it for a short time. She will follow up with her community providers and plan of care and transport with her son. Patient/Family Education Needs: Review of discharge instructions, medications, follow up plan, activity, limitations, and discuss Ask Me Three Services Needed at Discharge: Home Health Care Services, Physical Therapy
--- NOTE | 2021-05-20 12:13 | PDOC.HHF2F_ITS ---
Home Health Certification Home Health Certification: 1. Encounter Date and Reason I certify that Elina Duarte was seen by Kristy Hernandez on 05/20/21 and that I had a [id number] encounter with this patient that meets the physician face to face encounter requirements. 2. Clinical Findings Supporting Skilled Need and Homebound Status I certify that home health services are medically necessary, include either intermittent senior living and/or physical/speech therapy, and that this patient is homebound in that absences from the home require considerable and taxing effort and are infrequent or of short duration, or are attributable to the need to receive medical care. [X] (a) Attached documentation from encounter provides clinical findings supporting skilled need and homebound status (including what assistance patient requires to leave the home). The encounter with the patient was in whole, or in part, for the following medical condition, which is the primary reason for home health care: Urinary Tract Infection,Altered Mental Status Physical Therapy: Patient would benefit from PT for further improvement in gait and balance Homebound: Patient is unable to leave house unassisted. 3. Certification and Authentication I certify that I composed the above information based on my clinical judgment relating to this patient's medical condition and, if applicable, clinical findings communicated to me by the NPP or inpatient physician who performed the Home Health Referral. All further orders will be obtained through ___Kam Garcia__(Community Based Physician - PCP)
--- NOTE | 2021-05-30 12:12 | INDS_ITS ---
Date of service: 05/30/21 PT Notes Visit Reasons: Urinary Tract Infection,Altered Mental Status Physical Therapy Inpatient Discharge Summary Date: 05/30/2021 Dates of service: 05/20/2021 only This is a clinical summary of care provided for the duration of dates listed abo ve. No charge was made in the completion of this documentation. Referring Doctor: Mariel Rehman MD PT Orders: PT CONSULT: Limited ability Precautions: Fall. Standard. Activity as tolerated. Patient Profile/Admitting Diagnosis: 86-year-old female presented to the ED on 05/18/2020 altered mental status after having found by family member on the bathroom floor. Patient states urinary tract infection, carcinoma of left breast, and status epilepticus. [facility] Active Problem List Urinary tract infection (Acute) AMS (altered mental status) (Acute) Elevated troponin (Acute) Febrile illness (Acute) Anemia (Chronic) Edema (Acute) Generalized weakness (Acute) Hypotension (Acute) Encephalopathy acute (Acute) Non-convulsive status epilepticus (Acute) Acute respiratory failure (Acute) Aspiration pneumonia (Acute) Status epilepticus (Acute) Acute confusional state (Acute) Syncope (Chronic) Anemia (Chronic) Bilateral lower extremity edema (Acute) Left inguinal hernia (Acute) Scar tissue (Acute) Primary biliary cholangitis (Chronic) Carcinoma of left breast (Acute) Epistaxis (Acute) Synovial cyst of left popliteal space (Chronic 09/01/16) Primary osteoarthritis of left knee (Chronic 07/05/17) Osteoarthritis (Chronic) Obesity (Chronic) Intention tremor (Chronic) Hypermetropia (Chronic 10/28/12) Hypercholesterolemia (Chronic) Essential hypertension (Chronic 03/06/13) Diabetes mellitus (Chronic 12/04/12) Asthma (Chronic 03/06/13) 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) Lumbar radiculitis (Chronic) 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) Status post rotator cuff repair (Chronic 06/23/13) Status post excision distal clavicle (Chronic 06/23/13) Asthma (Chronic) Medical History Actinic keratosis Asthma Benign hypertension Chronic pruritus Cortical age-related cataract of both eyes Cortical age-related cataract of both eyes (12/19/16) Diabetes mellitus Diverticulosis Esophageal ulcer Essential hypertension Gastric ulcer Grade II internal hemorrhoids Hypercholesterolemia Hypermetropia Intention tremor Obesity Osteoarthritis Primary osteoarthritis of left knee Synovial cyst of left popliteal space Torn rotator cuff (06/23/13) Repair rotator cuff by Dr. Kaden Escobedo 06-23-2013 Surgical History Biopsy of breast (04/18/17) benign breast tissue with cyst wall Colonoscopy - IV Sedation 10 + years ago- normal Colonoscopy - MAC (12/31/17) EGD - MAC (12/31/17) ganglion, left ankle Nuclear senile cataract Oseotomy (10/06/98) TONNY BILATERAL FEET Rotator Cuff Repair (06/23/13) Right with distal clavical excision Social History/Home Situation: Independent with all aspects of ADLs prior to admission. Patient states that she very rarely uses her FWW nor her cane at home. has good family support. Equipment Owned/DME: FWW, SPC Subjective: NT. See most recent FOUNTAIN MANAGER notes. Objective: General Observation: NT. See most recent FOUNTAIN MANAGER notes. Mental Status: NT. See most recent FOUNTAIN MANAGER notes. Pain: NT. See most recent FOUNTAIN MANAGER notes. ROM: Right Upper Extremity: Shoulder Flexion WFL. Shoulder abduction WFL. Elbow flexion WFL. Wrist flexion WFL. Functional opening and closing of hand WFL. Left Upper Extremity: Shoulder Flexion WFL. Shoulder abduction WFL. Elbow flexion WFL. Wrist flexion WFL. Functional opening and closing of hand WFL. Right Lower Extremity: Hip flexion WFL. Hip abduction WFL. Knee flexion WFL. Ankle dorsiflexion WFL. Ankle plantarflexion WFL. Left Lower Extremity: Hip flexion WFL. Hip abduction WFL. Knee flexion WFL. Ankle dorsiflexion WFL. Ankle plantarflexion WFL. Strength: Right Upper Extremity: Shoulder flexors 4/5. Shoulder abductors 4/5. Elbow flexors 5/5. Elbow extensors 4/5. Buttoner strong. Left Upper Extremity: Shoulder flexors 4/5. Shoulder abductors 4/5. Elbow flexors 5/5. Elbow extensors 4/5. Buttoner strong. Right Lower Extremity: Hip flexors 4-/5. Hip abductors 4-/5. Knee flexors 4-/5. Knee extensors 4-/5. Ankle dorsiflexors 4-/5. Ankle plantarflexors 4-/5. Left Lower Extremity: Hip flexors 4-/5. Hip abductors 4-/5. Knee flexors 4-/5. Knee extensors 4-/5. Ankle dorsiflexors 4-/5. Ankle plantarflexors 4-/5. Bed Mobility/Transfers: Rolling independent Supine to sit independent Sit to supine independent Sit to stand with independent Stand to sit with independent Bed to reclining chair independent Gait: Instructed patient with level surface ambulation of 200 feet requiring supervision assist. Less waddling, no path deviation, and more upright with use of FWW than without. Balance: Static Sitting: Normal Dynamic Sitting: Normal Static Standing: Fair Dynamic Standing: Fair 4-Stage Balance Test: Unable to maintain semi-tandem, tandem, and one legged stance for 10 seconds indicating a risk for falls. Assessment: Patient is able to walk safer and longer with use of FWW than without. Has equipment she needs at home. Patient presents with clinical signs and symptoms consistent with current/admitting diagnoses that have resulted to mobility limitations, gait instability, generalized weakness, and overall ADL decline as demonstrated by the following impairment level findings: 1. Impaired sitting/standing balance 2. Swelling in B LE Impairments are contributing to the following functional limitations: 1. Difficulty with ambulation without assistive device 2. Increased completion time for mobility ADL performance 3. Increased risk for falls Goals: Goals X1 week 1. Supine-Sit independent MET 2. Sit-Supine independent MET 3. Sit-Stand independent MET MET 4. Stand-Sit independent with FWW MET 5. Bed-Chair independent with FWW MET 6. Chair-Bed independent with FWW MET 7. Independent gait on level surface with use of FWW for at least 100 feet without report of pain nor dyspnea NOT MET Plan of Care/Treatment Plan: 1-2x/day, 7 days/week x 1 week. Plan of care has been reviewed with the FOUNTAIN MANAGER providing the service under Physical Therapy direction. Initiate Physical Therapy intervention for pain management as needed, strengthening, bed mobility, transfers, gait, stairs, balance training, and use of assistive device. DISCHARGE RECOMMENDATIONS: [] Home with no services [] [X] Home with services. Home when medically cleared by hospitalist. Patient will benefit from home health PT services in order to progress mobility level using least restrictive assistive ambulatory device, assess home safety, identify additional equipment needs, and establish a functional maintenance program that will increase ability of patient to remain at home. [] Home with outpatient PT [] [] SNF for continued rehabilitation [] [] [facility] [] [] SNF versus LTC based on ability to participate and progress [] TREATMENT CODE/TIME: NC Thank you for the opportunity to participate in the care of this patient. Mary Shelley PT, DPT, CLT [facility] [place], [place]
== END 2021-05-20 13:11 | disposition home health service (06) | DRG 690 ==
LOC: ER 23:32 → MS 05-19 01:28
PROVIDERS: Internal Medicine; Admitting Provider Family Medicine; Emergency Provider Physician Assistant; PCP Family Medicine; Visit Provider Family Medicine
DX: N39.0 Urinary tract infection, site not specified (principal); G93.40 Encephalopathy, unspecified; D63.8 Anemia in other chronic diseases classified elsewhere; E78.00 Pure hypercholesterolemia, unspecified; I10 Essential (primary) hypertension; E11.9 Type 2 diabetes mellitus without complications; J45.909 Unspecified asthma, uncomplicated; K74.3 Primary biliary cirrhosis; C50.912 Malignant neoplasm of unspecified site of left female breast; Z17.0 Estrogen receptor positive status [ER+]; Z86.16 Personal history of COVID-19; E78.5 Hyperlipidemia, unspecified; R74.8 Abnormal levels of other serum enzymes; R53.1 Weakness; I95.9 Hypotension, unspecified; E66.9 Obesity, unspecified; Z20.822 Contact with and (suspected) exposure to COVID-19; B96.20 Unspecified Escherichia coli [E. coli] as the cause of diseases classified elsewhere; F03.90 Unspecified dementia, unspecified severity, without behavioral disturbance, psychotic disturbance, mood disturbance, and anxiety
CPT/HCPCS: 36415; 51701; 70553; 80048; 80053; 82550; 84145; 85652; 87040; 87077; 87635; 93005; 95819; 96361; 96365; 97162; 99223; 99291; 70450; 71045; 81003; 81015; 83605; 83735; 84484; 85025; 85610; 86140; 87086; 87186; 93010; 99233; 99239; J0696; J1644

== ENCOUNTER → 2021-05-19 07:32 | Outpatient (BNVA) | payer MEDICARE, SELFPAY | PROVIDERS: PCP Family Medicine; Referring Provider Family Medicine; Visit Provider Psychiatry & Neurology Neurology | DX: R69 Illness, unspecified (principal) ==

== ENCOUNTER 2021-06-22 10:47 | Outpatient (CLI) | payer MEDICARE, SELFPAY ==
--- NOTE | 2021-06-22 07:15 | DI.US_ITS ---
APPROVED REPORT EXAM: Comprehensive 2D, Doppler, and color-flow Echocardiogram Patient Location: Out-Patient Audiovisual Aids Technician: Jeanie Hensley RDCS (AE) Indications: Edema Other Information Study Quality: Adequate Conclusion Left Ventricle : The left ventricle is normal size. The left ventricular systolic function is normal. The left ventricular ejection fraction is within the normal range. There is normal left ventricular wall thickness. There is normal LV segmental wall motion. The diastolic function is abnormal. LVEF is 59%. Right Ventricle : The right ventricle is normal size. The right ventricular systolic function is norm al. The RVSP is 40.5mmHg. Atria : Left atrium is moderately dilated. The right atrium size is normal. Aortic Valve : The Aortic valve is sclerotic. Aortic valve is trileaflet. Trace to mild aortic regurg itation. No hemodynamically significant valvular aortic stenosis. Great Vessels : The aortic root is normal in size. The ascending aorta is mildly dilated. IVC is norm al in size and collapses >50% with inspiration. Wall motion Left Ventricle The left ventricle is normal size. The left ventricular systolic function is normal. The left ventric ular ejection fraction is within the normal range. There is normal left ventricular wall thickness. T here is normal LV segmental wall motion. The diastolic function is abnormal. There is no ventricular septal defect visualized. LVEF is 59%. Right Ventricle The right ventricle is normal size. The right ventricular systolic function is normal. The RVSP is 40 .5mmHg. Atria Left atrium is moderately dilated. The right atrium size is normal. The interatrial septum is intact with no evidence for an atrial septal defect. Aortic Valve The Aortic valve is sclerotic. Aortic valve is trileaflet. No hemodynamically significant valvular ao rtic stenosis. Trace to mild aortic regurgitation. Mitral Valve Moderate mitral annular calcification. No evidence of mitral valve stenosis. Trace mitral regurgitati on. Tricuspid Valve The tricuspid valve is normal in structure. There is no tricuspid valve stenosis. Trace tricuspid reg urgitation. Pulmonic Valve The pulmonary valve is normal in structure. There is no pulmonic valvular stenosis. Trace pulmonic re gurgitation. Great Vessels The aortic root is normal in size. The ascending aorta is mildly dilated. IVC is normal in size and c ollapses >50% with inspiration. Pericardium There is no pericardial effusion. 2D Dimensions IVSD d PLAX 1.00 cm F: 0.6-1.0 LV Vol A2C d MOD 154.4 mL LVPW d PLAX 1.04 cm F: 0.6 - 1.0 LV Vol A4C d MOD 115.5 mL LVID d PLAX 4.35 cm F: 3.8 - 5.2 LA vol/ BSA A2C s A-L 45.4 mL/m2 LVDs 2.75 cm F: 2.2 - 3.5 LA vol/ BSA A4C s A-L 44.2 mL/m2 Ao Root d 2.96 cm F: 2.7 - 3.3 LA Vol/ BSA Biplane s A-L 45.0 mL/m2 RA Area A4C 11.00 cm2 LA Area A4C s MOD 22.43 cm2 RA Vol/ BSA A4C s A-L 13.4 mL/m2 LA Area A2C s MOD 22.81 cm2 Ao Asc Diam d 3.38 cm F: 2.3 - 3.1 LV EF A4C MOD 58.9 % LV EF Teichholz 66.7 % LV EF A2C MOD 60.3 % LVEF (Jerez's) 58.53 % F: 54 - 74 LV EF Biplane MOD 58.5 % LV Volume 106.73 mL F: 46 - 106 SV 78.18 mL LV Volume Index 63.91 mL/m2 F: 29 - 61 SV Index 46.77 mL/m2 LV Vol Biplane MOD 133.6 mL FS 36.60 % M-Mode TAPSE 2.13 cm (M/F) >1.7 LV Diastology MV E' medial 0.072 (>0.07 m/s) E/A Ratio 0.8 LV E/e MED 15.00 (<14) MV E Vmax 1.08 (0.4-1.3 m/s) MV E' lateral 0.077 (>0.1 m/s) MV A Vmax 1.30 (0.4-1.3 m/s) LV E/e LAT 14.05 (<14) MV E/A Ratio 0.80 MV E/E' medial 15.03 MV E/E' lateral 14.07 Aortic Valve LVOT Area 3.94 cm2 AoV Area Vmax 3.90 cm2 LVOT Vmax 2.21 m/s AoV Area/ BSA (Vmax) 2.33 cm2/m2 LVOT Mean Rambo. 1.39 m/s RAY Mean Rambo. 3.79 cm2 LVOT Peak Grad 19.5 mmHg RAY Mean Rambo. Index 2.27 cm2/m2 LVOT Mean Grad 9.3 mmHg AR DT 1007 msec LVOT VTI 0.489 m AR PHT 292 msec LVOT Diam s 2.20 cm AoV Vmax 2.23 m/s Velocity Ratio 0.99 AoV Mean Rambo. 1.44 m/s AoV Peak Grad 19.9 mmHg LVOT SV 192.69 mL AoV Mean Grad 9.6 mmHg AoV VTI 0.402 m AoV Area VTI 4.79 cm2 AoV Area/ BSA (VTI) 2.86 cm/m2 Mitral Valve MV DT 256 (160-240 msec) MV PHT 74 msec MV Area PHT 2.97 cm2 MV VTI 0.396 m MV Area VTI 4.87 (4.0-6.0 cm2) Pulmonary Valve PV Vmax 1.78 (0.5-1.5 m/s) RVOT Peak Gr. 3.50 mmHg PV Peak Grad 12.7 mmHg RVOT Mean Gr. 1.95 mmHg PV Mean Grad 6.3 mmHg RVOT VTI 0.190 m PV VTI 0.320 m RVOT Vmax 0.94 m/s Tricuspid Valve TR Peak Grad 37.5 mmHg TR Vmax 3.06 m/s RA Pressure 3.00 mmHg RVSP (TR) 40.5 mmHg
== END 2021-06-22 11:07 ==
PROVIDERS: PCP Family Medicine; Visit Provider Family Medicine
DX: R60.9 Edema, unspecified (principal); I51.7 Cardiomegaly; I77.810 Thoracic aortic ectasia
CPT/HCPCS: 93306

== ENCOUNTER 2021-07-19 02:07 | Outpatient (CLI) | payer MEDICARE, SELFPAY ==
[2021-07-19 10:47] LABS: Abs Immature Grans 0.02 10^3/uL (0.0-0.06); Absolute Basophil Count 0.03 10^3/uL (0.0-0.2); Absolute Eosinophil Count 0.12 10^3/uL (0.0-0.7); Absolute Lymphocyte Count 1.14 10^3/uL (1.2-3.4); Absolute Monocyte Count 0.88 10^3/uL (0.1-0.8); Absolute Neutrophil Count 6.25 10^3/uL (1.2-6.7); Basophils % 0.4; Eosinophils % 1.4; HCT 35.7 % (36.0-46.0); Immature Grans % 0.2; Lymphocytes % 13.5; MCHC 30.8 % (32.0-36.0); MCV 84.4 fL (80-95); MPV 10.8 fL (8.0-11.0); Monocytes % 10.4; Neutrophils % 74.1; Nucleated RBC 0 %; Platelet Count 163 10^3/uL (130-400); RBC 4.23 10^6/uL (3.93-5.22); RDW 20.8 % (11.7-14.6); RDW-SD 62.4 fL; WBC 8.44 10^3/uL (4.4-10.8)
[2021-07-19 10:58] LABS: Hemoglobin A1C 6.3 % (<5.7)
[2021-07-19 11:16] LABS: Anisocytosis 1+
[2021-07-19 11:40] LABS: Iron 58 ug/dL (50-170); Total Iron Binding Capacity 341 ug/dL (250-450); Transferrin Sat 17 % (15-50)
[2021-07-19 11:47] LABS: TSH 3.61 uIU/mL (0.36-3.74)
[2021-07-19 11:48] LABS: ALT 88 U/L (14-59); AST 76 U/L (15-37); Albumin 2.3 g/dL (3.4-5.0); Alkaline Phosphatase 198 U/L (46-116); Anion Gap 7.8 mmol/L (3-11); BUN 21 mg/dL (7-18); Bilirubin, Total 1.8 mg/dL (0.2-1.0); CO2 28.2 mmol/L (21.0-32.0); CREATININE 0.7 mg/dL (0.55-1.02); Calcium 8.6 mg/dL (8.5-10.1); Calculated LDL 66 mg/dL (<100); Chloride 106 mmol/L (98-107); Cholesterol 113 mg/dL (<200); Ferritin 54 ng/mL (8-252); Glucose 126 mg/dL (74-106); HDL Cholesterol 35 mg/dL (40-60); Potassium 3.7 mmol/L (3.5-5.1); Sodium 142 mmol/L (136-145); Triglyceride 60 mg/dL (<150)
[2021-07-19 12:02] LABS: Folate > 20.0 ng/mL (8.6-20.0); Vitamin B12 1403 pg/mL (193-986)
[2021-07-19 12:28] LABS: Reticulocyte 1.9 % (0.5-2.4)
[2021-07-20 16:06] LABS: Erythropoietin 78.6 mIU/mL (2.6 - 18.5)
== END 2021-07-19 02:08 | disposition home or self-care (01) ==
LOC: LBO 02:07
PROVIDERS: PCP Family Medicine; Visit Provider Family Medicine
DX: D64.9 Anemia, unspecified (principal); E11.9 Type 2 diabetes mellitus without complications; I10 Essential (primary) hypertension
CPT/HCPCS: 36415; 80053; 80061; 82668; 82607; 82728; 82746; 83036; 83540; 83550; 84443; 85025; 85045

== ENCOUNTER → 2021-08-01 10:48 | Outpatient (BNVA) | payer MEDICARE, SELFPAY | PROVIDERS: PCP Family Medicine; Visit Provider Psychiatry & Neurology Neurology | DX: G31.84 Mild cognitive impairment of uncertain or unknown etiology (principal); R53.81 Other malaise; I10 Essential (primary) hypertension; E11.9 Type 2 diabetes mellitus without complications; G40.919 Epilepsy, unspecified, intractable, without status epilepticus | CPT/HCPCS: 99215 ==

== ENCOUNTER 2021-09-15 01:52 | Outpatient (CLI) | payer MEDICARE, SELFPAY ==
[2021-09-15 08:51] LABS: HCT 33.1 % (36.0-46.0); HGB 10.5 g/dL (11.2-15.7); MCH 28.6 pg (27.0-33.0); MCHC 31.7 % (32.0-36.0); MCV 90.2 fL (80-95); MPV 11.2 fL (8.0-11.0); Platelet Count 147 10^3/uL (130-400); RBC 3.67 10^6/uL (3.93-5.22); RDW 19.3 % (11.7-14.6); RDW-SD 63.9 fL; Reticulocyte 1.9 % (0.5-2.4); WBC 6.34 10^3/uL (4.4-10.8)
[2021-09-15 09:04] LABS: Hemoglobin A1C 5.9 % (<5.7)
[2021-09-15 10:04] LABS: ALT 58 U/L (14-59); AST 93 U/L (15-37); Albumin 2.3 g/dL (3.4-5.0); Alkaline Phosphatase 199 U/L (46-116); Anion Gap 8.4 mmol/L (3-11); BUN 17 mg/dL (7-18); Bilirubin, Total 1.6 mg/dL (0.2-1.0); CO2 27.6 mmol/L (21.0-32.0); CREATININE 0.6 mg/dL (0.55-1.02); Calcium 8.4 mg/dL (8.5-10.1); Chloride 107 mmol/L (98-107); Ferritin 44 ng/mL (8-252); Glucose 99 mg/dL (74-106); Potassium 3.8 mmol/L (3.5-5.1); Sodium 143 mmol/L (136-145); TSH 5.16 uIU/mL (0.36-3.74); Total Protein 5.9 g/dL (6.4-8.2); Vitamin B12 1357 pg/mL (193-986)
[2021-09-15 10:05] LABS: Folate > 20.0 ng/mL (8.6-20.0)
[2021-09-15 10:15] LABS: Iron 48 ug/dL (50-170); Total Iron Binding Capacity 335 ug/dL (250-450)
[2021-09-15 12:54] LABS: Abs Immature Grans 0.01 10^3/uL (0.0-0.06); Absolute Basophil Count 0.08 10^3/uL (0.0-0.2); Absolute Eosinophil Count 0.24 10^3/uL (0.0-0.7); Absolute Lymphocyte Count 2.03 10^3/uL (1.2-3.4); Absolute Monocyte Count 0.75 10^3/uL (0.1-0.8); Absolute Neutrophil Count 3.38 10^3/uL (1.2-6.7); Basophils % 1.2; Eosinophils % 3.7; Immature Grans % 0.2; Lymphocytes % 31.3; Monocytes % 11.6
[2021-09-16 10:41] LABS: FREE T4 1.24 ng/dL (0.76-1.46)
[2021-09-17 14:04] LABS: Erythropoietin 48.9 mIU/mL (2.6 - 18.5)
== END 2021-09-15 01:53 | disposition home or self-care (01) ==
PROVIDERS: PCP Family Medicine; Visit Provider Family Medicine
DX: D64.9 Anemia, unspecified (principal)
CPT/HCPCS: 36415; 80053; 82668; 85027; 82607; 82728; 82746; 83036; 83540; 83550; 84439; 84443; 85007; 85045

== ENCOUNTER 2021-10-14 02:29 | Outpatient (CLI) | payer MEDICARE, SELFPAY | END 2021-10-14 02:30 | disposition home or self-care (01) | LOC: LBO 02:31 | PROVIDERS: PCP Family Medicine; Visit Provider Family Medicine ==

== ENCOUNTER 2021-11-14 03:52 | Outpatient (CLI) | payer MEDICARE, SELFPAY | END 2021-11-14 03:53 | disposition home or self-care (01) | LOC: LOS 03:52 | PROVIDERS: PCP Family Medicine; Visit Provider Family Medicine ==

== ENCOUNTER → 2021-11-16 10:08 | Outpatient (BNVA) | payer MEDICARE, SELFPAY | PROVIDERS: PCP Family Medicine; Referring Provider Family Medicine; Visit Provider Psychiatry & Neurology Neurology | DX: G40.901 Epilepsy, unspecified, not intractable, with status epilepticus (principal); R41.3 Other amnesia; I10 Essential (primary) hypertension | CPT/HCPCS: 99214 ==

== ENCOUNTER 2021-12-19 03:00 | Outpatient (CLI) | payer MEDICARE, SELFPAY ==
[2021-12-19 12:29] LABS: HCT 38.4 % (36.0-46.0); HGB 12.5 g/dL (11.2-15.7); MCH 30.7 pg (27.0-33.0); MCHC 32.6 % (32.0-36.0); MCV 94 fL (80-95); MPV 12.2 fL (8.0-11.0); Platelet Count 128 10^3/uL (130-400); RBC 4.07 10^6/uL (3.93-5.22); RDW 16.5 % (11.7-14.6); RDW-SD 57.3 fL; WBC 6.07 10^3/uL (4.4-10.8)
[2021-12-19 13:02] LABS: Iron 142 ug/dL (50-170); Total Iron Binding Capacity 312 ug/dL (250-450); Transferrin Sat 46 % (15-50)
[2021-12-19 13:08] LABS: Hemoglobin A1C 5.5 % (<5.7)
[2021-12-19 13:12] LABS: ALT 56 U/L (14-59); AST 92 U/L (15-37); Albumin 2.6 g/dL (3.4-5.0); Alkaline Phosphatase 193 U/L (46-116); Anion Gap 9.7 mmol/L (3-11); BUN 13 mg/dL (7-18); Bilirubin, Total 2.6 mg/dL (0.2-1.0); CO2 27.3 mmol/L (21.0-32.0); CREATININE 0.6 mg/dL (0.55-1.02); Chloride 106 mmol/L (98-107); Ferritin 102 ng/mL (8-252); Glucose 116 mg/dL (74-106); Potassium 3.6 mmol/L (3.5-5.1); Sodium 143 mmol/L (136-145); Total Protein 6.2 g/dL (6.4-8.2)
== END 2021-12-19 03:01 | disposition home or self-care (01) ==
LOC: LOS 03:00
PROVIDERS: PCP Family Medicine; Visit Provider Family Medicine
DX: D64.9 Anemia, unspecified (principal); E11.9 Type 2 diabetes mellitus without complications; E78.00 Pure hypercholesterolemia, unspecified; I10 Essential (primary) hypertension; R60.0 Localized edema
CPT/HCPCS: 36415; 80053; 85027; 82728; 83036; 83540; 83550

== ENCOUNTER 2021-12-28 11:20 | Outpatient (REF) | payer MEDICARE, SELFPAY | END 2021-12-28 11:21 | disposition home or self-care (01) | LOC: LBN 11:20 | PROVIDERS: PCP Family Medicine; Visit Provider Obstetrics & Gynecology | DX: R10.2 Pelvic and perineal pain (principal) | CPT/HCPCS: 87480; 87510; 87660 ==

== ENCOUNTER 2022-01-05 17:09 | Inpatient (IN) | payer MEDICARE, SELFPAY ==
[2022-01-05] VITALS (43 sets, daily range): BP systolic 101–173; BP diastolic 44–105; PULSE 82–119; RESP 14–31; TEMP 36.5–37.5; O2SAT 76–97
--- NOTE | 2022-01-05 17:30 | RT.EKG_ITS ---
APPROVED REPORT Exam: Resting ECG Reason for Exam: TACHYCARDIA Patient Location: E HR:110 bpm ECG Measurements Heart Rate 110 AXIS OK 191 P 39 QRSd 84 QRS -10 QT 320 T 40 QTc 434 Conclusion Sinus tachycardia Multiple ventricular premature complexes Probable left atrial enlargement.. Nonspecific st changes
[2022-01-05 18:01] LABS: Source Nasal/Nares
[2022-01-05 18:05] LABS: Bilirubin Negative (Negative); Blood Trace-intact (Negative); Clarity Clear (Clear); Glucose Negative (Negative); Ketones Negative (Negative); Leukocyte Esterase Negative (Negative); Nitrite Negative (Negative); Urobilinogen 0.2 EU/dL (Up TO 0.2)
[2022-01-05] MEDS: Normal Saline 1,000 ML 1000 ML IV (18:05)
[2022-01-05 18:12] LABS: Abs Immature Grans 0.03 10^3/uL (0.0-0.06); Absolute Basophil Count 0.07 10^3/uL (0.0-0.2); Absolute Eosinophil Count 0.08 10^3/uL (0.0-0.7); Absolute Lymphocyte Count 0.86 10^3/uL (1.2-3.4); Absolute Monocyte Count 0.82 10^3/uL (0.1-0.8); Absolute Neutrophil Count 9.28 10^3/uL (1.2-6.7); Basophils % 0.6; Eosinophils % 0.7; HCT 39.6 % (36.0-46.0); HGB 13.5 g/dL (11.2-15.7); Immature Grans % 0.3; Lymphocytes % 7.7; MCH 31.4 pg (27.0-33.0); MCHC 34.1 % (32.0-36.0); MCV 92 fL (80-95); MPV 12.8 fL (8.0-11.0); Monocytes % 7.4; Neutrophils % 83.3; Platelet Count 138 10^3/uL (130-400); RDW 15.8 % (11.7-14.6); RDW-SD 53.6 fL; WBC 11.14 10^3/uL (4.4-10.8)
[2022-01-05 18:19] LABS: Bacteria Negative HPF (Negative); C & S Indicated? No; Crystals Negative HPF (Negative); Epithelial Cells Rare HPF (Negative); Mucus Negative (Negative); WBC Negative HPF (0-5)
[2022-01-05 18:27] LABS: ALT 63 U/L (14-59); AST 120 U/L (15-37); Albumin 2.8 g/dL (3.4-5.0); Alkaline Phosphatase 231 U/L (46-116); Anion Gap 6.8 mmol/L (3-11); BUN 16 mg/dL (7-18); Bilirubin, Total 3.4 mg/dL (0.2-1.0); CO2 29.2 mmol/L (21.0-32.0); CREATININE 0.6 mg/dL (0.55-1.02); Calcium 9.5 mg/dL (8.5-10.1); Chloride 104 mmol/L (98-107); Glucose 144 mg/dL (74-106); Lipase 81 U/L (73-393); Potassium 3.9 mmol/L (3.5-5.1); Sodium 140 mmol/L (136-145); Total Protein 7.1 g/dL (6.4-8.2)
[2022-01-05 18:31] LABS: Troponin I < 50 ng/L (<or=60)
--- NOTE | 2022-01-05 18:45 | DI.CT_ITS ---
Exam(s) CT ABDOMEN PELVIS W EXAM: CT ABDOMEN PELVIS W CLINICAL HISTORY: N/V, bili of 3.4 TECHNIQUE: Imaging Protocol: Axial computed tomography images with coronal and sagittal reformatted images were created and reviewed CONTRAST MATERIAL: Intravenous: Omnipaque 350 Contrast volume:85 mL Oral: No COMPARISON: CT CT CHEST/ABD/PEL W from 12/06/2018 CR XR DEXA BONE DENSITY W/WO LUIS from 03/23/2021 FINDINGS: ABDOMEN: Lung Bases: Cardiomegaly is present. Liver: The liver has a nodular contour with an enlarged left lobe most suggestive of hepatic cirrhosi s numerous gastroesophageal and upper abdominal varices are seen. There is a cyst in the right lobe of the liver. No measurable mass. Portal, Superior Mesenteric, and Splenic Veins: Unremarkable. Gallbladder and Biliary Tract: No radiodense calculus or dilation. Mild enhancement of the wall. Pancreas: Mild pancreatic atrophy. Spleen: The spleen measures 15.6 cm long. Adrenals: No masses seen. Kidneys: Normal size, contour and axis. No radiodense stones or obstructive uropathy. There are tiny hypodensities seen in the kidneys. They are too small for further characterization but likely reflec t small cysts. Abdominal Aorta: Abdominal portion non-dilated. Atherosclerosis is present. Bowel: No evidence of obstruction. Bowel wall thickening is seen in loops of small bowel. There is also bowel wall thickening seen in the cecum and ascending colon. There is no evidence of appendicit is. There is diverticulosis seen in the colon, but no evidence of acute diverticulitis. There is a midline infraumbilical anterior abdominal wall hernia. It contains a loop of small bowel and fluid. No evidence to suggest obstruction or incarceration of the bowel is noted. There is also mild bowel wall thickening of the duodenum. Peritoneal Cavity: There is a small amount perihepatic and pericholecystic fluid. There is infiltrat ion in the mesentery. No free air. Lymph Nodes: Mildly enlarged lymph nodes are seen in the upper abdomen the aortocaval and periportal region. Bones: Within normal limits for the patient's age. There is a new compression fracture deformity of T12. There is retropulsion of the posterior wall into the spinal canal. The AP diameter is 1.2 cm. There is also compression deformity of T10. There is loss of approximately 30 percent of the height of the vertebral body anteriorly. No significant retropulsion is seen. Soft Tissues: Mild generalized edema is seen in the soft tissues. Postsurgical changes are seen in t he left breast. In addition there is thickening of the skin of the left breast. This may reflect george mpectomy and radiation therapy. Please correlate clinically. PELVIS: Bladder: Symmetric distention, no gross wall thickening. Reproductive Organs: Unremarkable as visualized. Lymph Nodes: Within normal limits. Bones: Within normal limits for the patient's age. IMPRESSION: 1. Findings consistent with hepatic cirrhosis and portal hypertension with splenomegaly, abdominal va rices and ascites. 2. New midline anterior abdominal wall infraumbilical hernia containing an unremarkable loop of small bowel in fluid. 3. Thickening of the bowel involving the duodenum, small bowel and right colon. The findings are mos t prominent in the cecum and ascending colon. An infectious/inflammatory enteritis/colitis should be considered. Sequela related to the patient's liver status should also be considered. Please correl ate clinically. 4. Gallbladder findings as described above. This may reflect the adjacent ascites. If there is conc lico for gallbladder disease ultrasound may be considered for further evaluation. 5. New compression fracture deformities of T10 and T12. There is mild narrowing of the T12 central s jennifer canal due to retropulsion of the posterior wall. RADIATION DOSE DELIVERED: 886.87mGy.cm Total DLP DATA REPOSITORY: All CT scans at this facility are submitted to the National Radiology Data Registry (NRDR) Dose Index Registry (DIR) with the [employer] (A[employer]). RADIATION OPTIMIZATION: All CT scans at this facility use at least one of these dose optimization te chniques: automated exposure control; mA and/or kV adjustment per patient size (includes targeted exa ms where dose is matched to clinical indication); or iterative reconstruction.
[2022-01-05 18:55] LABS: COVID-19 PCR Negative (Negative)
--- NOTE | 2022-01-05 19:30 | DI.RAD_ITS ---
Exam(s) XR CHEST 2V PA LATERAL EXAM: XR CHEST 2V PA LATERAL CLINICAL HISTORY: chills TECHNIQUE: 2D digital imaging was performed of the chest. Three images were obtained. PA and later al views were obtained. COMPARISON: CR XR CHEST 2V PA LATERAL from 11/25/2020 CR,XR XR PORTABLE CHEST AP from 05/18/2021 FINDINGS: MEDIASTINUM: Normal. HEART: Normal. PULMONARY VASCULATURE: Normal. LUNGS: No focal consolidating infiltrates. There again seen diffuse bilateral interstitial infiltrat es which are unchanged and are likely chronic. PLEURAL SPACE: No pleural effusion or pneumothorax. BONE:Within normal limits for the patient's age. Postsurgical changes are seen in the right shoulder and the left axilla. There is a new marked compression deformity of T12. There is also new T10 com pression deformity. OTHER FINDINGS:There is again seen elevation of the right hemidiaphragm. IMPRESSION: 1. No definite acute pulmonary process. 2. Stable diffuse interstitial infiltrates which are likely chronic. Please correlate clinically. S uperimposed interstitial edema or pneumonia cannot be entirely excluded. 3. New T10 and T12 compression fracture deformities. DATA REPOSITORY: RADIATION DOSE DELIVERED:
[2022-01-05 19:37] LABS: Lactate 1.4 mmol/L (0.6-1.4)
[2022-01-05] MEDS: Ondansetron 4 MG/2 ML VIAL IVP (19:43)
[2022-01-05] MEDS: Omnipaque 350 MG/ML 100 ML BTL IJ (20:02)
[2022-01-05] MEDS: Normal Saline Flush 10 ML SYR IVP ×2 (20:12→23:16)
--- NOTE | 2022-01-05 20:39 | ED.GENADUL_ITS ---
Discharge Plan Disposition Patient Disposition: [facility] INPATIENT Condition: Serious Discharge Details Chief Complaint: GenMedical Clinical Impression: Elevated bilirubin, Nausea and vomiting, Tachycardia, Elevated LFTs Primary Care Provider: Macarena Blankenship ED Provider: Drew Granados Home Meds and New Rx's Prescriptions: No Action ferrous gluconate 324 mg (37.5 mg iron) tablet 324 mg PO DAILY Qty: 90 3RF furosemide 20 mg tablet 20 mg PO DAILY milk thistle 150 mg capsule 150 mg PO DAILY Label Comments: 01/05/22- pt unsure of dose Rx Instructions: give with meal/snack calcium carbonate [Calcium 600] 600 mg calcium (1,500 mg) tablet 600 mg PO DAILY Label Comments: 01/05/22- pt unsure of dose magnesium gluconate 27.5 mg magne- sium (500 mg) tablet 27.5 mg PO BID calcium carb-D3-mag [id number] wt-kuiu-ud-mg tablet 1 tab PO DAILY Label Comments: 01/05/22- pt unsure of dose Rx Instructions: administer with a meal ursodiol 300 mg capsule 300 mg PO BID Label Comments: 01/05/22- pt states takes two 300 mg pills in am and one 300 mg tab at night. albuterol sulfate [ProAir HFA] 90 mcg/actuation HFA aerosol inhaler 1 puff Inhalation Q6H PRN Qty: 3 4RF cholecalciferol (vitamin D3) [Vitamin D3] 2,000 UNIT capsule 1,000 unit PO DAILY (DME) blood-glucose meter [FreeStyle Lite Meter] 1 EACH kit 1 ea Miscellaneous DAILY Qty: 1 0RF (DME) lancets [FreeStyle Lancets] 28 gauge misc 1 ea Miscellaneous DAILY Qty: 100 6RF Rx Instructions: One daily levetiracetam 1,000 mg tablet 1,000 mg PO BID Qty: 180 3RF (DME) FreeStyle Lite Strips Strip 1 ea Miscellaneous DAILY Qty: 100 3RF Rx Instructions: Once daily E11.9 potassium chloride 10 mEq tablet extended release 10 meq PO DAILY Qty: 90 3RF Medical Decision Making This is a 86-year-old female presenting to the ER for evaluation regarding feeling warm, cold, rigors, nausea and vomiting x2 today. She appears slightly dry, tachycardia of 116, presents with hypertension but she is afebrile. Plan is to obtain IV access, give IV fluid, Zofran, and obtain routine screening laboratory values. Given her tachycardia and rigors plan is to obtain a septic work-up as well as an EKG and troponin. We will obtain blood cultures as well. Initial laboratory values reveal minimal nonspecific leukocytosis of 11.14, absolute neutrophils of 9.28, lactate of 1.4 electrolytes unremarkable, creatinine 0.6 with a GFR greater than 60. While she does appear to have chron ic elevated LFTs, they are certainly higher than her baseline at night with a total bili of 3.4, AST of 120, ALT of 63, alk phosphatase of 231. Her lipase is normal at 81. Troponin less than 50 urinalysis does not reveal any signs of infection. COVID-negative. Patient received IV Zofran and 1 L IV fluids. Reports that her nausea has improved, tachycardia persists anywhere between 105-115. In the setting of subjective fever, chills, leukocytosis, nausea and vomiting with elevated LFTs will obtain CT imaging of abdomen and pelvis with IV contrast. Chest x-ray reveals potential pneumonitis versus early consolidation. She has no respiratory symptoms. Is COVID-negative. O2 sats are 95% on room air. CT imaging reveals changes of cirrhosis and portal hypertension. Possible duodenitis. Gallbladder disease of uncertain chronicity. Changes could be related to adjacent cirrhosis. Interval development significant compression CT imaging is concerning for gallbladder disease of uncertain chronicity and in the rest of her presentation, certainly concerning for cholecystitis, choledocholithiasis, cholangitis, etc. Plan is to discuss the case with our surgical team for admission, I will initiate Zosyn antibiotic therapy, and I believe that likely observation, ultrasound tomorrow for further information and then more definitive care is indicated. Case is discussed with our surgical team, Dr. Estrella who is agreeable to admission. This documentation was generated using [employer] system, please disregard any oddities of phrase or misspellings. Medical Records Medical records reviewed: Yes I reviewed the patient's medical records. Imaging Data Radiologic Study: Attestation: I personally reviewed and interpreted this imaging study as follows: Imaging: X-Ray Radiologist's impression: PROCEDURE INFORMATION: Exam: XR Chest Exam date and time: 01/05/2022 8:05 PM Age: 86 years old Clinical indication: Other: Chills; Prior surgery; Surgery date: 6+ months; Surgery type: R shoulder, L breast TECHNIQUE: Imaging protocol: Radiologic exam of the chest. Views: 2 views. COMPARISON: XR PORTABLE CHEST AP 05/18/2021 9:56 PM FINDINGS: Lungs: Hazy ground-glass opacity left mid lung laterally. Pleural spaces: Unremarkable. No pleural effusion. No pneumothorax. Heart/Mediastinum: Cardiomegaly. Vasculature: Aortic ectasia. Bones/joints: Unremarkable. Other findings: Left lumpectomy change noted. IMPRESSION: Hazy ground-glass changes noted in the left mid lung laterally. Consider pneumonitis or early consolidation. Radiologic Study #2: Attestation: I personally reviewed and interpreted this imaging study as follows: Imaging: CT Scan Radiologist's impression: PROCEDURE INFORMATION: Exam: CT Abdomen And Pelvis With Contrast Exam date and time: 01/05/2022 7:49 PM Age: 86 years old Clinical indication: Abnormal findings; Abnormal lab test; Nausea and vomiting; Patient HX: Nv, bili of 3.4 TECHNIQUE: Imaging protocol: Computed tomography of the abdomen and pelvis with contrast. Radiation optimization: All CT scans at this facility use at least one of these dose optimization techniques: automated exposure control; mA and/or kV adjustment per patient size (includes targeted exams where dose is matched to clinical indication); or iterative reconstruction. Contrast material: OMNIPAQUE 350; Contrast volume: 85 ml; Contrast route: INTRAVENOUS (IV); COMPARISON: CT CHEST/ABD/PEL W 12/06/2018 11:07 AM FINDINGS: Pleural spaces: There is some pleural nodular attenuation at the lingular level series 5, image 1, new since prior study. A dominant nodule measures up to 6 mm in diameter. Heart: Cardi omegaly. Liver: There is nodular change to the hepatic serosal margin of concern for underlying cirrhosis. Small cyst unchanged. There is cirrhotic morphology with shrunken right lobe and more prominent left lobe and overall decrease in hepatic size compared to prior study. Gallbladder and bile ducts: There may be some gallbladder wall thickening and hyperemia versus artifact secondary to surrounding pericholecystic fluid with associated ascites. Pancreas: Normal. No ductal dilation. Spleen: No change splenomegaly. Adrenal glands: Normal. No mass.Kidneys and ureters: There is splenic mass effect on the left kidney. Renal perfusion is symmetric without hydronephrosis or hydroureter. Stomach and bowel: There may be some mild wall thickening involving the 3rd and 4th portions of the duodenum. No abnormal bowel distention appreciated. There is a bowel and fluid containing anterior abdominal wall hernia at the pelvic level, new since previous study. There is no evidence to suggest associated small bowel obstruction. Diverticulosis without acute diverticulitis. Appendix: No evidence of appendicitis. Intraperitoneal space: There is mild ascites, new since previous study. Vasculature: There is been interval recanalization of the umbilical vein compared to prior study. There is a prominent SMV varicosity series 5, images 33-39, new from prior study. Lymph nodes: Unremarkable. No enlarged lymph nodes. Urinary bladder: Unremarkable as visualized. Reproductive: Unremarkable as visualized. Bones/joints: Unremarkable. No acute fracture. Soft tissues: Postsurgical changes noted left breast. There is soft tissue thickening within the parenchymal tissue as well as skin edema, presumably radiation change. IMPRESSION: 1. Changes of cirrhosis and portal hypertension developed in the interval since prior study. 2. Apparent lumpectomy and radiation change involving the left breast compared to prior exam. 3. Possible duodenitis. 4. Gallbladder disease, uncertain chronicity. Current changes could relate to adjacent cirrhosis. New lines there has been interval development of compression deformities T10 and T12. There is approximately 40 and 60% vertebral body height compromise respectively. There is retropulsion with mild stenosis at the T12 level. 5. Interval development significant compression fractures. Lab Data Lab results reviewed: Yes I reviewed the patient's lab results. Labs: 01/05/22 19:33 Blood Blood Culture - Pending 01/05/22 19:25 Blood Blood Culture - Pending Laboratory Tests Range/Units 01/05/22 01/05/22 01/05/22 17:55 17:58 18:03 WBC (4.4-10.8) 10^3/uL RBC (3.93-5.22) 10^6/uL Hgb (11.2-15.7) g/dL Hct (36.0-46.0) % MCV (80-95) fL MCH (27.0-33.0) pg MCHC (32.0-36.0) % RDW (11.7-14.6) % Plt Count (130-400) 10^3/uL MPV (8.0-11.0) fL Immature Gran % Neutrophils % Lymphocytes % Monocytes % Eosinophils % Basophils % Nucleated RBC % (0.0-0.3) % Absolute Neutrophils (1.2-6.7) 10^3/uL Absolute Lymphocytes (1.2-3.4) 10^3/uL Absolute Monocytes (0.1-0.8) 10^3/uL Absolute Eosinophils (0.0-0.7) 10^3/uL Absolute Basophils (0.0-0.2) 10^3/uL VBG Lactate (0.6-1.4) mmol/L Sodium (136-145) mmol/L 140 Potassium (3.5-5.1) mmol/L 3.9 Chloride (98-107) mmol/L 104 Carbon Dioxide (21.0-32.0) mmol/L 29.2 Anion Gap (3-11) mmol/L 6.8 BUN (7-18) mg/dL 16 Creatinine (0.55-1.02) mg/dL 0.6 Estimated GFR/1.73 m2 (mL/min/1.73m2) >= 60.00 Glucose (74-106) mg/dL 144 H Calcium (8.5-10.1) mg/dL 9.5 Total Bilirubin (0.2-1.0) mg/dL 3.4 H AST (15-37) U/L 120 H ALT (14-59) U/L 63 H Alkaline Phosphatase (46-116) U/L 231 H Troponin I (<or=60) ng/L Total Protein (6.4-8.2) g/dL 7.1 Albumin (3.4-5.0) g/dL 2.8 L Lipase (73-393) U/L 81 Urine Color (Yellow) Yellow Urine Clarity (Clear) Clear Urine pH (5-8) 7.0 Ur Specific [place] (1.005-1.025) 1.020 Urine Protein (Negative) mg/dL Negative Urine Ketones (Negative) mg/dL Negative Urine Blood (Negative) Trace-intact H Urine Nitrite (Negative) Negative Urine Bilirubin (Negative) Negative Urine Urobilinogen (Up TO 0.2) EU/dL 0.2 Ur Leukocyte Esterase (Negative) Negative Urine RBC (0-2) HPF 3-5 H Urine WBC (0-5) HPF Negative Ur Epithelial Cells (Negative) HPF Rare Urine Crystals (Negative) HPF Negative Urine Bacteria (Negative) HPF Negative Urine Mucus (Negative) Negative Ur Culture Indicated? No Urine Glucose (Negative) mg/dL Negative COVID-19 Source Nasal/Nares SARS-CoV-2 (PCR) (Negative) Negative Range/Units 01/05/22 01/05/22 01/05/22 18:03 18:03 19:33 WBC (4.4-10.8) 10^3/uL 11.14 H RBC (3.93-5.22) 10^6/uL 4.30 Hgb (11.2-15.7) g/dL 13.5 Hct (36.0-46.0) % 39.6 MCV (80-95) fL 92 MCH (27.0-33.0) pg 31.4 MCHC (32.0-36.0) % 34.1 RDW (11.7-14.6) % 15.8 H Plt Count (130-400) 10^3/uL 138 MPV (8.0-11.0) fL 12.8 H Immature Gran % 0.3 Neutrophils % 83.3 Lymphocytes % 7.7 Monocytes % 7.4 Eosinophils % 0.7 Basophils % 0.6 Nucleated RBC % (0.0-0.3) % 0.0 Absolute Neutrophils (1.2-6.7) 10^3/uL 9.28 H Absolute Lymphocytes (1.2-3.4) 10^3/uL 0.86 L Absolute Monocytes (0.1-0.8) 10^3/uL 0.82 H Absolute Eosinophils (0.0-0.7) 10^3/uL 0.08 Absolute Basophils (0.0-0.2) 10^3/uL 0.07 VBG Lactate (0.6-1.4) mmol/L 1.4 Sodium (136-145) mmol/L Potassium (3.5-5.1) mmol/L Chloride (98-107) mmol/L Carbon Dioxide (21.0-32.0) mmol/L Anion Gap (3-11) mmol/L BUN (7-18) mg/dL Creatinine (0.55-1.02) mg/dL Estimated GFR/1.73 m2 (mL/min/1.73m2) Glucose (74-106) mg/dL Calcium (8.5-10.1) mg/dL Total Bilirubin (0.2-1.0) mg/dL AST (15-37) U/L ALT (14-59) U/L Alkaline Phosphatase (46-116) U/L Troponin I (<or=60) ng/L < 50 Total Protein (6.4-8.2) g/dL Albumin (3.4-5.0) g/dL Lipase (73-393) U/L Urine Color (Yellow) Urine Clarity (Clear) Urine pH (5-8) Ur Specific [place] (1.005-1.025) Urine Protein (Negative) mg/dL Urine Ketones (Negative) mg/dL Urine Blood (Negative) Urine Nitrite (Negative) Urine Bilirubin (Negative) Urine Urobilinogen (Up TO 0.2) EU/dL Ur Leukocyte Esterase (Negative) Urine RBC (0-2) HPF Urine WBC (0-5) HPF Ur Epithelial Cells (Negative) HPF Urine Crystals (Negative) HPF Urine Bacteria (Negative) HPF Urine Mucus (Negative) Ur Culture Indicated? Urine Glucose (Negative) mg/dL COVID-19 Source SARS-CoV-2 (PCR) (Negative) ECG Data Attestation: I personally reviewed and interpreted this ECG (s) as follows: Interpretation: Sinus tachycardia, ventricular rate 110. Multiple ventricular premature complexes. Nonspecific ST changes. No STEMI HPI General Mode of arrival: ambulatory . Date/Time Provider Initiated Documentation: 01/05/22 17:36 . Limitations to Documentation: no limitations . Information obtained by: patient and family . HPI Narrative: This is an 86-year-old female presenting to the ER with her son, past medical history of chronic cirrhosis of the liver, primary biliary cholangitis, nonconvulsive status epilepticus, bilateral chronic extremity edema, anemia, diabetes, hypertension, breast cancer in remission, presenting to the ER today for subjective feelings of warmth, chills, rigors, nausea, vomiting x2 that began this afternoon. Patient denies recent illness or trauma. She denies any headache, neck pain, chest pain, shortness of breath, abdominal pain, dysuria, hematuria, diarrhea, worsening swelling of her legs. She does report urinary frequency as she does take Lasix. She reports that her swelling of her legs today is actually very good compared to her baseline. Related Data Home Medications Medication Instructions Recorded Confirmed cholecalciferol (vitamin D3) 50 1,000 unit PO DAILY 09/01/16 01/05/22 mcg (2,000 unit) capsule (Vitamin D3) blood-glucose meter (FreeStyle ##1 07/05/17 01/05/22 Lite Meter kit) FreeStyle Lancets 28 gauge #100 ea 06/15/20 01/05/22 (lancets) albuterol sulfate 90 mcg/actuation 1 puff inhalation Q6H PRN #3 puffs 12/20/20 01/05/22 aerosol inhaler (ProAir HFA) levetiracetam 1,000 mg tablet 1,000 mg PO BID #180 tabs 06/14/21 01/05/22 blood sugar diagnostic (FreeStyle #100 strips 06/21/21 01/05/22 Lite Strips) ferrous gluconate 324 mg (37.5 mg 324 mg PO DAILY #90 tabs 09/19/21 01/05/22 iron) tablet potassium chloride 10 mEq 10 meq PO DAILY #90 tabs 09/19/21 01/05/22 tablet,extended release calcium carb-vit E3-[id number]-[id number] 1 tab PO DAILY 01/05/22 01/05/22 333 mg-200 unit-133 mg-5 mg tablet calcium carbonate 600 mg calcium 600 mg PO DAILY 01/05/22 01/05/22 (1,500 mg) tablet (Calcium) furosemide 20 mg tablet 20 mg PO DAILY 01/05/22 01/05/22 magnesium gluconate 27.5 mg 27.5 mg PO BID 01/05/22 01/05/22 magnesium (500 mg) tablet milk thistle 150 mg capsule 150 mg PO DAILY 01/05/22 01/05/22 ursodiol 300 mg capsule 300 mg PO BID 01/05/22 01/05/22 Previous Rx's Medication Instructions Recorded blood-glucose meter (FreeStyle ##1 07/05/17 Lite Meter kit) FreeStyle Lancets 28 gauge #100 ea 06/15/20 (lancets) albuterol sulfate 90 mcg/actuation 1 puff inhalation Q6H PRN #3 puffs 12/20/20 aerosol inhaler (ProAir HFA) levetiracetam 1,000 mg tablet 1,000 mg PO BID #180 tabs 06/14/21 blood sugar diagnostic (FreeStyle #100 strips 06/21/21 Lite Strips) ferrous gluconate 324 mg (37.5 mg 324 mg PO DAILY #90 tabs 09/19/21 iron) tablet potassium chloride 10 mEq 10 meq PO DAILY #90 tabs 09/19/21 tablet,extended release Allergies Allergy/AdvReac Type Severity Reaction Status Date / Time bee venom protein (honey bee) Allergy Severe Anaphylaxsi Verified 01/05/22 17:32 s hornet venom Allergy Severe Anaphylaxsi Verified 01/05/22 17:32 s oxycodone Allergy Intermediate Severe Verified 01/05/22 17:32 itching red yeast rice Allergy rash Uncoded 01/05/22 17:32 General Stated Complaint: GenMedical MOISES: 3 Review of Systems Constitutional Constitutional: Denies fatigue, Reports fever(s) (Subjective), Denies headache(s) and Denies weakness Eyes Eyes: Denies change in vision ENT Ears, Nose, Mouth, and Throat: Denies headache(s) and Denies neck pain Cardiovascular Cardiovascular: Denies chest pain and Denies dyspnea Respiratory Respiratory: Denies cough and Denies dyspnea Gastrointestinal Gastrointestinal: Denies abdominal pain, Denies constipation, Denies diarrhea, Reports nausea and Reports vomiting Genitourinary Genitourinary: Denies abnormal vaginal bleeding and Denies dysuria Musculoskeletal Musculoskeletal: Denies back pain and Denies neck pain Integumentary/Breasts Skin/Breast: Denies rash Neurologic Neurologic: Denies headache(s) and Denies weakness Endocrine Endocrine: Denies fatigue Hematologic/Lymphatic Hematologic/Lymphatic: Denies easy bleeding and Denies easy bruising PFSH All Active Problems (Updated 01/05/22 @ 21:40 by JESSICA Romo) Elevated bilirubin (Acute) Nausea and vomiting (Acute) Tachycardia (Acute) Elevated LFTs (Acute) Cystocele and rectocele with incomplete uterovaginal prolapse (Acute) Fitted with #3 RS pessary 12/28/21 Cirrhosis (Acute) 2.2021-secondary to the primary biliary cholangitis, followed by GI at [facility] EGD with small varices in 10/2021. Pt unable to tolerate propranolol. 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 (12/13/17) Anemia 04/2021, chronic disease, HCT-31 Asthma Carcinoma of left breast Invasive intraductal, on arimedex, followed by Oncology Chronic pruritus Cortical age-related cataract of both eyes (12/19/16) Diabetes mellitus Diverticulosis Esophageal ulcer Essential hypertension Gastric ulcer Grade II internal hemorrhoids History of aspiration pneumonia History of COVID-19 Hypercholesterolemia Hypermetropia Intention tremor Left inguinal hernia Lumbar radiculitis Memory loss Obesity Osteoarthritis Primary osteoarthritis of left knee Syncope Synovial cyst of left popliteal space (09/01/16) Torn rotator cuff (06/23/13) Repair rotator cuff by Dr. Kaden Escobedo 06-23-2013 Urinary tract infection 05/2021-associated with hospital at [facility] with altered mental status Surgical History Biopsy of breast (04/18/17) benign breast tissue with cyst wall Colonoscopy - IV Sedation 10 + years ago- normal Colonoscopy - MAC (12/31/17) EGD - MAC (12/31/17) ganglion, left ankle H/O inguinal hernia repair Nuclear senile cataract Oseotomy (10/06/98) TONNY BILATERAL FEET Rotator Cuff Repair (06/23/13) Right with distal clavical excision Family History Mother , 88 Diabetes Essential hypertension Heart disease Hyperlipidemia Father , 63 Neoplasm BLADDER Sister Hyperlipidemia Breast cancer Brother Diabetes Essential hypertension Hyperlipidemia Neoplasm PROSTATE Prostate cancer Maternal Grandfather No problems noted. Paternal Grandfather No problems noted. Maternal Grandmother Diabetes Paternal Grandmother No problems noted. 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 Pets and animals: Yes Pets and animals: dog(s) Sexually active: No Do you think of yourself as: straight/heterosexual Current gender identity: female What is your relationship status?: How often do you talk on the phone with friends or family?: three or more times per week How often do you get together with friends or relatives?: twice per week How often do you attend taoist or adventism services?: decline to answer Do you belong to any clubs or organized social groups?: no Panel score (0-1 are the most socially isolated patients): 1 What type of physical activity do you participate in: none Nhung/Hinduism: No preference Special nhung needs: No Seatbelt use: always Drive intox or ride w/intox non cdl 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 Date GA/Weeks # Preg Succ Route Wgt Sex Labor [facility]1953 [facility] No Yes vaginal Female 10/12/1957 40 No Yes vaginal Male Exam Const General: cooperative, healthy appearing, comfortable and no acute distress Orientation: alert and awake HENMT Head: normal to inspection, normocephalic and atraumatic Mouth: moist mucous membranes abnormal (Slightly dry) Eyes General: appearance normal, both eyes and all related structures Conjunctivae: conjunctivae normal Neck Neck: normal visual inspection, full ROM, no meningeal signs, trachea midline and supple Resp Effort & Inspection: normal respiratory effort and able to speak in complete sentences Auscultation: clear to auscultation bilaterally Cardio Rate: tachycardic (116) Rhythm: regular rhythm GI Palpation: soft, not firm, no guarding, no pulsatile masses and nontender Auscultation: normal bowel sounds Back/Spine/Pelvis Back: no CVA tenderness and No back tenderness Skin General skin exam: no rashes or lesions noted Neuro General: patient alert, patient awake, moves all extremities and no focal motor deficits Cognition: normal cognition Speech: speech normal Gait: normal gait Motor: muscle tone normal throughout Sensory Exam: no sensory deficits noted Extrem General: full ROM, capillary refill normal, no calf tenderness and pedal edema bilaterally pitting and 2+ Psych Appearance: grossly normal Mental Status: mental status grossly normal Course Vital Signs Vital signs: Vital Signs Temperature 36.6 C 01/05/22 17:16 Pulse 116 H 01/05/22 17:16 Respiratory Rate 22 01/05/22 17:16 Blood Pressure 173/80 H 01/05/22 17:16 Pulse Oximetry 93 01/05/22 17:16 Temperature 36.6 C 01/05/22 20:16 Temperature Source Skin 01/05/22 20:16 Pulse 114 H 01/05/22 20:16 Respiratory Rate 18 01/05/22 20:16 Respiratory Effort 01/05/22 20:34 Respiratory Depth Normal 01/05/22 20:34 Respiratory Pattern Normal 01/05/22 20:34 Blood Pressure 162/66 H 01/05/22 20:16 Pulse Oximetry 97 01/05/22 20:21 Oxygen Delivery Method Nasal Cannula 01/05/22 20:21 Oxygen Flow Rate 2 01/05/22 20:21 Pain Level 0 01/05/22 20:16 Comment 01/05/22 17:16 Lab/Test Results Lab/Test Results: 01/05/22 19:33 Blood Blood Culture - Pending 01/05/22 19:25 Blood Blood Culture - Pending Laboratory Tests Range/Units 01/05/22 01/05/22 01/05/22 17:55 17:58 18:03 WBC (4.4-10.8) 10^3/uL RBC (3.93-5.22) 10^6/uL Hgb (11.2-15.7) g/dL Hct (36.0-46.0) % MCV (80-95) fL MCH (27.0-33.0) pg MCHC (32.0-36.0) % RDW (11.7-14.6) % Plt Count (130-400) 10^3/uL MPV (8.0-11.0) fL Immature Gran % Neutrophils % Lymphocytes % Monocytes % Eosinophils % Basophils % Nucleated RBC % (0.0-0.3) % Absolute Neutrophils (1.2-6.7) 10^3/uL Absolute Lymphocytes (1.2-3.4) 10^3/uL Absolute Monocytes (0.1-0.8) 10^3/uL Absolute Eosinophils (0.0-0.7) 10^3/uL Absolute Basophils (0.0-0.2) 10^3/uL VBG Lactate (0.6-1.4) mmol/L Sodium (136-145) mmol/L 140 Potassium (3.5-5.1) mmol/L 3.9 Chloride (98-107) mmol/L 104 Carbon Dioxide (21.0-32.0) mmol/L 29.2 Anion Gap (3-11) mmol/L 6.8 BUN (7-18) mg/dL 16 Creatinine (0.55-1.02) mg/dL 0.6 Estimated GFR/1.73 m2 (mL/min/1.73m2) >= 60.00 Glucose (74-106) mg/dL 144 H Calcium (8.5-10.1) mg/dL 9.5 Total Bilirubin (0.2-1.0) mg/dL 3.4 H AST (15-37) U/L 120 H ALT (14-59) U/L 63 H Alkaline Phosphatase (46-116) U/L 231 H Troponin I (<or=60) ng/L Total Protein (6.4-8.2) g/dL 7.1 Albumin (3.4-5.0) g/dL 2.8 L Lipase (73-393) U/L 81 Urine Color (Yellow) Yellow Urine Clarity (Clear) Clear Urine pH (5-8) 7.0 Ur Specific [place] (1.005-1.025) 1.020 Urine Protein (Negative) mg/dL Negative Urine Ketones (Negative) mg/dL Negative Urine Blood (Negative) Trace-intact H Urine Nitrite (Negative) Negative Urine Bilirubin (Negative) Negative Urine Urobilinogen (Up TO 0.2) EU/dL 0.2 Ur Leukocyte Esterase (Negative) Negative Urine RBC (0-2) HPF 3-5 H Urine WBC (0-5) HPF Negative Ur Epithelial Cells (Negative) HPF Rare Urine Crystals (Negative) HPF Negative Urine Bacteria (Negative) HPF Negative Urine Mucus (Negative) Negative Ur Culture Indicated? No Urine Glucose (Negative) mg/dL Negative COVID-19 Source Nasal/Nares SARS-CoV-2 (PCR) (Negative) Negative Range/Units 01/05/22 01/05/22 01/05/22 18:03 18:03 19:33 WBC (4.4-10.8) 10^3/uL 11.14 H RBC (3.93-5.22) 10^6/uL 4.30 Hgb (11.2-15.7) g/dL 13.5 Hct (36.0-46.0) % 39.6 MCV (80-95) fL 92 MCH (27.0-33.0) pg 31.4 MCHC (32.0-36.0) % 34.1 RDW (11.7-14.6) % 15.8 H Plt Count (130-400) 10^3/uL 138 MPV (8.0-11.0) fL 12.8 H Immature Gran % 0.3 Neutrophils % 83.3 Lymphocytes % 7.7 Monocytes % 7.4 Eosinophils % 0.7 Basophils % 0.6 Nucleated RBC % (0.0-0.3) % 0.0 Absolute Neutrophils (1.2-6.7) 10^3/uL 9.28 H Absolute Lymphocytes (1.2-3.4) 10^3/uL 0.86 L Absolute Monocytes (0.1-0.8) 10^3/uL 0.82 H Absolute Eosinophils (0.0-0.7) 10^3/uL 0.08 Absolute Basophils (0.0-0.2) 10^3/uL 0.07 VBG Lactate (0.6-1.4) mmol/L 1.4 Sodium (136-145) mmol/L Potassium (3.5-5.1) mmol/L Chloride (98-107) mmol/L Carbon Dioxide (21.0-32.0) mmol/L Anion Gap (3-11) mmol/L BUN (7-18) mg/dL Creatinine (0.55-1.02) mg/dL Estimated GFR/1.73 m2 (mL/min/1.73m2) Glucose (74-106) mg/dL Calcium (8.5-10.1) mg/dL Total Bilirubin (0.2-1.0) mg/dL AST (15-37) U/L ALT (14-59) U/L Alkaline Phosphatase (46-116) U/L Troponin I (<or=60) ng/L < 50 Total Protein (6.4-8.2) g/dL Albumin (3.4-5.0) g/dL Lipase (73-393) U/L Urine Color (Yellow) Urine Clarity (Clear) Urine pH (5-8) Ur Specific [place] (1.005-1.025) Urine Protein (Negative) mg/dL Urine Ketones (Negative) mg/dL Urine Blood (Negative) Urine Nitrite (Negative) Urine Bilirubin (Negative) Urine Urobilinogen (Up TO 0.2) EU/dL Ur Leukocyte Esterase (Negative) Urine RBC (0-2) HPF Urine WBC (0-5) HPF Ur Epithelial Cells (Negative) HPF Urine Crystals (Negative) HPF Urine Bacteria (Negative) HPF Urine Mucus (Negative) Ur Culture Indicated? Urine Glucose (Negative) mg/dL COVID-19 Source SARS-CoV-2 (PCR) (Negative)
[2022-01-05] MEDS: PIPERACILLIN/TAZO 3.375 GM in Normal Saline 50 ML IVPB (21:05)
[2022-01-05] MEDS: Lactated Ringers 1,000 ML 50 ML IV (23:16)
[2022-01-06] VITALS (9 sets, daily range): BP systolic 92–111; BP diastolic 48–63; PULSE 68–87; RESP 8–24; TEMP 36.9–37.2; O2SAT 90–97
--- NOTE | 2022-01-06 | DI.US_ITS ---
Exam(s) US ABDOMEN LIMITED EXAM: US ABDOMEN LIMITED CLINICAL HISTORY: rule out cholecystitis TECHNIQUE: Ultrasound abdomen performed using standard protocol. COMPARISON: No exams were available for comparison FINDINGS: PANCREAS: Normal where visualized. LIVER: The liver has a nodular contour consistent with hepatic cirrhosis. Hepatopedal flow in the Po rtal Vein. The liver measures in 14.0 cm length. GALLBLADDER: No evidence of cholelithiasis. No evidence of wall thickening. Mild pericholecystic flui d. The gallbladder is distended. The gallbladder measures 4.7 cm in diameter BILIARY SYSTEM: Common bile duct measures < 7 mm. No intrahepatic biliary ductal dilation. ASNTA'S SIGN: Negative. RIGHT KIDNEY: Kidney is normal in size. No evidence of renal calculi. No evidence of hydronephrosis. No renal mass or cyst identified. ASCITES: Abdominal ascites is present. ABDOMINAL AORTA AND IVC: Visualized portions normal caliber. IMPRESSION: 1. Findings of hepatic cirrhosis with abdominal ascites. 2. Distended gallbladder but no evidence of stones gallbladder wall thickening or biliary ductal dila tation. There is a negative sonographic Santa sign. No radiographic findings to suggest acute chol ecystitis. DATA REPOSITORY:
[2022-01-06] MEDS: PIPERACILLIN/TAZO 3.375 GM in Normal Saline 50 ML IVPB ×4 (04:03→21:30)
[2022-01-06] MEDS: Normal Saline 500 ML 30 ML IV (04:03)
[2022-01-06] MEDS: Normal Saline Flush 10 ML SYR IVP ×4 (04:03→21:30)
[2022-01-06 06:22] LABS: Abs Immature Grans 0.07 10^3/uL (0.0-0.06); Absolute Basophil Count 0.08 10^3/uL (0.0-0.2); Absolute Lymphocyte Count 1.15 10^3/uL (1.2-3.4); Absolute Monocyte Count 1.13 10^3/uL (0.1-0.8); Basophils % 0.5; Eosinophils % 0.2; HCT 33.2 % (36.0-46.0); HGB 10.9 g/dL (11.2-15.7); Immature Grans % 0.4; Lymphocytes % 7.1; MCH 30.9 pg (27.0-33.0); MCHC 32.8 % (32.0-36.0); MCV 94 fL (80-95); MPV 12.5 fL (8.0-11.0); Neutrophils % 84.8; Platelet Count 109 10^3/uL (130-400); RBC 3.53 10^6/uL (3.93-5.22); RDW-SD 55.1 fL; WBC 16.15 10^3/uL (4.4-10.8)
[2022-01-06 06:31] LABS: Absolute Eosinophil Count 0.03 10^3/uL (0.0-0.7)
[2022-01-06 06:33] LABS: ALT 42 U/L (14-59); AST 70 U/L (15-37); Albumin 1.9 g/dL (3.4-5.0); Alkaline Phosphatase 152 U/L (46-116); Anion Gap 3.7 mmol/L (3-11); BUN 16 mg/dL (7-18); Bilirubin, Total 3.1 mg/dL (0.2-1.0); CO2 31.3 mmol/L (21.0-32.0); CREATININE 0.8 mg/dL (0.55-1.02); Chloride 107 mmol/L (98-107); Glucose 94 mg/dL (74-106); Potassium 3.1 mmol/L (3.5-5.1); Sodium 142 mmol/L (136-145)
[2022-01-06] MEDS: POTASSIUM CHLORIDE 20 MEQ/100 ML BAG 50 MEQ IVPB (09:01)
[2022-01-06] MEDS: levETIRAcetam 1,000 MG in Normal Saline 100 ML 400 MG IVPB (09:06)
[2022-01-06] MEDS: Albuterol 2.5 MG/3 ML INH SOLN VIAL UPD (09:21)
--- NOTE | 2022-01-06 09:38 | W.MEDCONSULT ---
Date of service: 01/06/22 Time of Service: 09:38 Assessment and Plan Assessment and plan (1) Primary biliary cholangitis: Status: Chronic Assessment and plan: Sees Hepatology at [facility] Subjective chills, no fevers. + N/V and elevated WBC count. Gen Surg evaluating. No surgical intervention recommended by hepatology at [facility]. Cont Zosyn. CT showed GB disease of uncertainty chronicity. Possible duodenitis. Abd US: 1. Findings of hepatic cirrhosis with abdominal ascites. 2. Distended gallbladder but no evidence of stones gallbladder wall thickening or biliary ductal dilatation.? There is a negative sonographic Santa sign.? No radiographic findings to suggest acute cholecystitis.? (2) Diabetes mellitus: Assessment and plan: A1c 5.5. Not taking any medications. Qualifiers: Diabetes mellitus complication status: without complication Diabetes mellitus senior care insulin use: without watermaster use Diabetes mellitus type: type 2 Qualified Code(s): E11.9 - Type 2 diabetes mellitus without complications (3) Asthma: Assessment and plan: Has prn albuterol at home and hasn't used for a long time. O2 saturations were low on RA; now on 2L. Give nebs. CXR showed potential pneumonitis vs early consolidation. She is on Zosyn. Incentive spirometry. (4) Hypercholesterolemia: (5) Essential hypertension: Assessment and plan: On no antihypertensive meds. Low normal BP readings. Monitor. (6) Non-convulsive status epilepticus: Status: Chronic Assessment and plan: On Keppra. IV Keppra now while NPO. History of Present Illness History of Present Illness Chief Complaint: `Chills, Nausea, Vomitting. Narrative: This is an 86 yo female with a h/o primary biliary cholangitis, nonconvulsive status epilepticus, DM, HTN, breast cancer, anemia. She c/o feeling hot, then cold, chills, N/V x2 episodes. No fever/abd pain/diarrhea. No urinary pain/hesitancy. She was found to have a modestly elevated WBC count of 11.14. Lactate of 1.4. Lytes and creatinine normal. AST 120, ALT 63. Normal lipase. CXR showed potential pneumonitits vs early consolidation. Covid negative. O2 saturation on RA of 95%. CT abd showed changes of cirrhosis and portal hypertension. Questionable duodenitis. GB disease of uncertain chronicity. Zosyn initiated. Admitted to surgery service. Hospitalists consulted to assist with medical management. PFSH All Active Problems (Updated 01/06/22 @ 13:49 by Fina Pelletier DO) Aromatase inhibitor use (Acute) HER2-positive carcinoma of breast (Acute) Fe deficiency anemia (Acute) History of iron deficiency anemia. She has seen hematology and thought it was due to a mixed etiology Abnormal weight loss (Acute) Compression fracture of lumbar vertebra (Acute) Portal hypertensive gastropathy (Acute) Portal hypertension with esophageal varices (Acute) Grade 1. Documented by EGD at [facility] 2021 Cholecystitis (Acute) Hypokalemia (Acute) Cholangitis (Acute) Elevated bilirubin (Acute) Nausea and vomiting (Acute) Tachycardia (Acute) Elevated LFTs (Acute) Cystocele and rectocele with incomplete uterovaginal prolapse (Acute) Fitted with #3 RS pessary 12/28/21 Cirrhosis (Acute) 2.2021-secondary to the primary biliary cholangitis, followed by GI at [facility] EGD with small varices in 10/2021. Pt unable to tolerate propranolol. 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 (12/13/17) Anemia 04/2021, chronic disease, HCT-31 Asthma Carcinoma of left breast Invasive intraductal, on arimedex, followed by Oncology Chronic pruritus Cortical age-related cataract of both eyes (12/19/16) Diabetes mellitus Diverticulosis Esophageal ulcer Essential hypertension Gastric ulcer Grade II internal hemorrhoids History of aspiration pneumonia History of COVID-19 Hypercholesterolemia Hypermetropia Intention tremor Left inguinal hernia Lumbar radiculitis Memory loss Obesity Osteoarthritis Primary osteoarthritis of left knee Syncope Synovial cyst of left popliteal space (09/01/16) Torn rotator cuff (06/23/13) Repair rotator cuff by Dr. Kaden Escobedo 06-23-2013 Urinary tract infection 05/2021-associated with hospital at [facility] with altered mental status Surgical History Biopsy of breast (04/18/17) benign breast tissue with cyst wall Colonoscopy - IV Sedation 10 + years ago- normal Colonoscopy - MAC (12/31/17) EGD - MAC (12/31/17) ganglion, left ankle H/O inguinal hernia repair Nuclear senile cataract Oseotomy (10/06/98) TONNY BILATERAL FEET Rotator Cuff Repair (06/23/13) Right with distal clavical excision Family History Mother , 88 Diabetes Essential hypertension Heart disease Hyperlipidemia Father , 63 Neoplasm BLADDER Sister Hyperlipidemia Breast cancer Brother Diabetes Essential hypertension Hyperlipidemia Neoplasm PROSTATE Prostate cancer Maternal Grandfather No problems noted. Paternal Grandfather No problems noted. Maternal Grandmother Diabetes Paternal Grandmother No problems noted. 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 Pets and animals: Yes Pets and animals: dog(s) Sexually active: No Do you think of yourself as: straight/heterosexual Current gender identity: female What is your relationship status?: How often do you talk on the phone with friends or family?: three or more times per week How often do you get together with friends or relatives?: twice per week How often do you attend oriental orthodox or latter day services?: decline to answer Do you belong to any clubs or organized social groups?: no Panel score (0-1 are the most socially isolated patients): 1 What type of physical activity do you participate in: none Nhung/Jew: No preference Special nhung needs: No Seatbelt use: always Drive intox or ride w/intox cdl company flatbed 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 Date GA/Weeks # Preg Succ Route Wgt Sex Labor Lgth Anesthesia Location Prov Complic 12/13/1955 40 No Yes vaginal Female 10/12/1959 40 No Yes vaginal Male Exam Narrative Exam Narrative: Sitting in chair. Pleasant. NAD. NC in place. Const General: cooperative Nutritional Appearance: average body habitus Orientation: alert and oriented x3 Eyes Visual Rust: normal visual rust by confrontation Sclera: sclerae normal Resp Effort & Inspection: normal respiratory effort Auscultation: clear to auscultation bilaterally and diminished lung sounds Cardio Rate: regular rate Rhythm: regular rhythm Heart Sounds: S1 normal and S2 normal GI Palpation: soft and nontender Skin General skin exam: no rashes or lesions noted Extrem General: no pedal edema and edema Laterality: bilateral (1+) Results Last Vital Signs Temp 37.2 C 01/06/22 07:57 Pulse 87 01/06/22 07:57 Resp 24 01/06/22 07:57 BP 98/54 L 01/06/22 07:57 Pulse Ox 90 L 01/06/22 07:57 Labs Result diagrams: 01/06/22 06:07 01/06/22 06:07 Labs: Laboratory Results - last 24 hr 01/05/22 01/05/22 01/05/22 17:55 17:58 18:03 WBC RBC Hgb Hct MCV MCH MCHC RDW Plt Count MPV Immature Gran % Neutrophils % Lymphocytes % Monocytes % Eosinophils % Basophils % Nucleated RBC % Absolute Neutrophils Absolute Lymphocytes Absolute Monocytes Absolute Eosinophils Absolute Basophils VBG Lactate Sodium 140 Potassium 3.9 Chloride 104 Carbon Dioxide 29.2 Anion Gap 6.8 BUN 16 Creatinine 0.6 Estimated GFR/1.73 m2 >= 60.00 Glucose 144 H Calcium 9.5 Total Bilirubin 3.4 H AST 120 H ALT 63 H Alkaline Phosphatase 231 H Troponin I Total Protein 7.1 Albumin 2.8 L Lipase 81 Urine Color Yellow Urine Clarity Clear Urine pH 7.0 Ur Specific [place] 1.020 Urine Protein Negative Urine Ketones Negative Urine Blood Trace-intact H Urine Nitrite Negative Urine Bilirubin Negative Urine Urobilinogen 0.2 Ur Leukocyte Esterase Negative Urine RBC 3-5 H Urine WBC Negative Ur Epithelial Cells Rare Urine Crystals Negative Urine Bacteria Negative Urine Mucus Negative Ur Culture Indicated? No Urine Glucose Negative COVID-19 Source Nasal/Nares SARS-CoV-2 (PCR) Negative 01/05/22 01/05/22 01/05/22 18:03 18:03 19:33 WBC 11.14 H RBC 4.30 Hgb 13.5 Hct 39.6 MCV 92 MCH 31.4 MCHC 34.1 RDW 15.8 H Plt Count 138 MPV 12.8 H Immature Gran % 0.3 Neutrophils % 83.3 Lymphocytes % 7.7 Monocytes % 7.4 Eosinophils % 0.7 Basophils % 0.6 Nucleated RBC % 0.0 Absolute Neutrophils 9.28 H Absolute Lymphocytes 0.86 L Absolute Monocytes 0.82 H Absolute Eosinophils 0.08 Absolute Basophils 0.07 VBG Lactate 1.4 Sodium Potassium Chloride Carbon Dioxide Anion Gap BUN Creatinine Estimated GFR/1.73 m2 Glucose Calcium Total Bilirubin AST ALT Alkaline Phosphatase Troponin I < 50 Total Protein Albumin Lipase Urine Color Urine Clarity Urine pH Ur Specific [place] Urine Protein Urine Ketones Urine Blood Urine Nitrite Urine Bilirubin Urine Urobilinogen Ur Leukocyte Esterase Urine RBC Urine WBC Ur Epithelial Cells Urine Crystals Urine Bacteria Urine Mucus Ur Culture Indicated? Urine Glucose COVID-19 Source SARS-CoV-2 (PCR) 01/06/22 01/06/22 06:07 06:07 WBC 16.15 H RBC 3.53 L Hgb 10.9 L D Hct 33.2 L MCV 94 MCH 30.9 MCHC 32.8 RDW 16.0 H Plt Count 109 L MPV 12.5 H Immature Gran % 0.4 Neutrophils % 84.8 Lymphocytes % 7.1 Monocytes % 7.0 Eosinophils % 0.2 Basophils % 0.5 Nucleated RBC % 0.0 Absolute Neutrophils 13.70 H Absolute Lymphocytes 1.15 L Absolute Monocytes 1.13 H Absolute Eosinophils 0.03 Absolute Basophils 0.08 VBG Lactate Sodium 142 Potassium 3.1 L Chloride 107 Carbon Dioxide 31.3 Anion Gap 3.7 BUN 16 Creatinine 0.8 Estimated GFR/1.73 m2 >= 60.00 Glucose 94 Calcium 8.0 L Total Bilirubin 3.1 H AST 70 H ALT 42 Alkaline Phosphatase 152 H Troponin I Total Protein 5.0 L Albumin 1.9 L Lipase Urine Color Urine Clarity Urine pH Ur Specific [place] Urine Protein Urine Ketones Urine Blood Urine Nitrite Urine Bilirubin Urine Urobilinogen Ur Leukocyte Esterase Urine RBC Urine WBC Ur Epithelial Cells Urine Crystals Urine Bacteria Urine Mucus Ur Culture Indicated? Urine Glucose COVID-19 Source SARS-CoV-2 (PCR)
--- NOTE | 2022-01-06 10:13 | PDOC.CMIN ---
- If Service Date Differs Date of service: 01/06/22 Time of Service: 10:13 Care Management Initial Assess REASON FOR HOSPITALIZATION:: Cholangitis PAST MEDICAL HISTORY/PAST SURGICAL HISTORY:: All Active Problems (Updated 01/06/22 @ 11:56 by Solomon Estrella MD). Cholecystitis (Acute). Hypokalemia (Acute). Cholangitis (Acute). Elevated bilirubin (Acute). Nausea and vomiting (Acute). Tachycardia (Acute). Elevated LFTs (Acute). Cystocele and rectocele with incomplete uterovaginal prolapse (Acute). Fitted with #3 RS pessary 12/28/21. Cirrhosis (Acute). 2.2021-secondary to the primary biliary cholangitis, followed by GI at [facility]. EGD with small varices in 10/2021. Pt unable to tolerate propranolol. Hypotension (Acute). Non-convulsive status epilepticus (Chronic). Bilateral lower extremity edema (Acute). Primary biliary cholangitis (Chronic). followed by GI [facility], associated with chronically elevated transaminases. Medical History (Updated 01/06/22 @ 11:56 by Solomon Estrella MD). Actinic keratosis. 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 Anemia. 04/2021, chronic disease, HCT-31. Asthma. Carcinoma of left breast. Invasive intraductal, on arimedex, followed by Oncology. Chronic pruritus. Cortical age-related cataract of both eyes (12/19/16). Diabetes mellitus. Diverticulosis. Esophageal ulcer. Essential hypertension. Gastric ulcer. Grade II internal hemorrhoids. History of aspiration pneumonia. History of COVID-19. Hypercholesterolemia. Hypermetropia. Intention tremor. Left inguinal hernia. Lumbar radiculitis. Memory loss. Obesity. Osteoarthritis. Primary osteoarthritis of left knee. Syncope. Synovial cyst of left popliteal space (09/01/16). Torn rotator cuff (06/23/13). Repair rotator cuff by Dr. Kaden Escobedo 06-23-2013. Urinary tract infection. 05/2021-associated with hospital at [facility] with altered mental status. Surgical History . Biopsy of breast (04/18/17). benign breast tissue with cyst wall. Colonoscopy - IV Sedation. 10 + years ago- normal. Colonoscopy - MAC (12/31/17). EGD - MAC (12/31/17). ganglion, left ankle. H/O inguinal hernia repair. Nuclear senile cataract. Oseotomy (10/06/98). TONNY BILATERAL FEET. Rotator Cuff Repair (06/23/13). Right with distal clavical excision PREVIOUS FUNCTIONAL STATUS/SOCIAL/FAMILY SUPPORTS:: Elina lives alone in [place]. She has 2 adult children, who are both local and supportive. Her Daughter Yaneli Crockett lives next door and her Son Chon Duarte lives 5 miles away. Elina reports that she is independent with her ADL's at baseline and drives. She uses a cane occasionally. CURRENT FUNCTIONAL STATUS:: Elina was sitting on the side of her bed when CM met with her. She is alert, oriented and easy to engage in conversation. CM assisted Elina with updating her HIPAA at her request. Initally, just her son was on the form and she wanted to add her daughter and a few other family members. ADVANCE DIRECTIVES:: none on file, CM provided patient with forms. Has patient been provided with info about the portal/API?: Yes Did the patient sign up for the portal?: Yes (Prior to admission) CODE STATUS:: Full Code INSURANCE COVERAGE / FINANCIAL ISSUES:: Medicare. Financial Asst 100 CURRENT HOME/COMMUNITY SERVICES/EQUIPMENT:: Uses a cane occasionally. POTENTIAL DISCHARGE NEEDS:: Follow up with PCP and plan of care, assessment for community services. PATIENT/FAMILY EDUCATION NEEDS:: Review of discharge instructions, medications, follow up plan, activity, limitations, and discuss Ask Me Three TRANSPORTATION:: via private vehicle with family PLAN:: Elina will likely be discharged home via private vehicle with family, with new orders for home Health, if indicated (pt historically declines HH services). Elina will follow up with her community providers and plan of care as prescribed. CM will continue to support Elina and her discharge planning concerns.
--- NOTE | 2022-01-06 11:26 | W.PM.HP.N ---
Date of service: 01/06/22 Time of Service: 06:30 Assessment and Plan Assessment and plan (1) Cholangitis: Status: Acute Assessment and plan: Think this is most likely secondary to her primary biliary cholangitis -Treat with Zosyn -Follow-up white blood cell count culture data -Consult to hospitalist -With hep otology at [facility] (2) Hypokalemia: Status: Acute Assessment and plan: I think is probably secondary to some mild dehydration associated with her underlying liver disease and recent exacerbation of the cholangitis -Replete potassium -Repeat basic metabolic panel in 24 hours (3) Cholecystitis: Status: Acute Assessment and plan: Her physical exam is not consistent with acute cholecystitis. -Follow-up ultrasound today -If this does prove to be cholecystitis, that she would most likely need percutaneous cholecystostomy in light of her other medical comorbidities. History of Present Illness History of Present Illness Chief Complaint: rigors Narrative: Gurinder is an 86-year-old woman who came to the emergency department yesterday after feeling febrile and experiencing rigors. She described a little bit of nausea, but denies any vomiting to me. She said it was an acute onset of her symptoms yesterday. There were no particular exacerbating factors. Similarly, there was nothing that made her feel better. When she was seen in the emergency department, she was found to have a mild leukocytosis and elevated serum bilirubin level. She underwent a CAT scan of the abdomen and pelvis that demonstrated some gallbladder wall thickening in addition to findings consistent with cirrhosis. Presumptive diagnosis at that time was cholangitis, or perhaps cholecystitis. She was admitted to the floor, and broad-spectrum antibiotics were started. This morning, she says she is feeling better. She would like to drink something, but does not have much appetite beyond that. She denies nausea. She has not experienced any further rigors. Review of Systems Constitutional Constitutional: Denies anorexia, Reports chills, Reports fatigue, Reports fever(s), Reports lethargy, Reports poor appetite, Reports weakness and Denies weight loss Eyes Eyes: Denies blurry vision and Denies change in vision ENT Ears, Nose, Mouth, and Throat: Denies hearing loss, Denies hoarseness and Denies disequilibrium Cardiovascular Cardiovascular: Denies chest pain, Reports palpitations and Denies dyspnea Respiratory Respiratory: Denies cough and Denies dyspnea Gastrointestinal Gastrointestinal: Reports as per HPI Musculoskeletal Musculoskeletal: Denies abnormal gait, Denies back pain, Denies arthralgias and Reports muscle weakness Neurologic Neurologic: Denies abnormal speech, Denies abnormal gait, Denies behavioral changes, Denies disequilibrium and Reports weakness Psychiatric Psychiatric: Denies behavioral changes Endocrine Endocrine: Reports fatigue, Denies polyphagia, Denies polydipsia and Reports palpitations Hematologic/Lymphatic Hematologic/Lymphatic: Denies easy bleeding and Denies easy bruising ON LICENSE OF [facility] All Active Problems (Updated 01/06/22 @ 11:56 by Solomon Estrella MD) Cholecystitis (Acute) Hypokalemia (Acute) Cholangitis (Acute) Elevated bilirubin (Acute) Nausea and vomiting (Acute) Tachycardia (Acute) Elevated LFTs (Acute) Cystocele and rectocele with incomplete uterovaginal prolapse (Acute) Fitted with #3 RS pessary 12/28/21 Cirrhosis (Acute) 2.2021-secondary to the primary biliary cholangitis, followed by GI at [facility] EGD with small varices in 10/2021. Pt unable to tolerate propranolol. 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 (12/13/17) Anemia 04/2021, chronic disease, HCT-31 Asthma Carcinoma of left breast Invasive intraductal, on arimedex, followed by Oncology Chronic pruritus Cortical age-related cataract of both eyes (12/19/16) Diabetes mellitus Diverticulosis Esophageal ulcer Essential hypertension Gastric ulcer Grade II internal hemorrhoids History of aspiration pneumonia History of COVID-19 Hypercholesterolemia Hypermetropia Intention tremor Left inguinal hernia Lumbar radiculitis Memory loss Obesity Osteoarthritis Primary osteoarthritis of left knee Syncope Synovial cyst of left popliteal space (09/01/16) Torn rotator cuff (06/23/13) Repair rotator cuff by Dr. Kaden Escobedo 06-23-2013 Urinary tract infection 05/2021-associated with hospital at [facility] H with altered mental status Surgical History Biopsy of breast (04/18/17) benign breast tissue with cyst wall Colonoscopy - IV Sedation 10 + years ago- normal Colonoscopy - MAC (12/31/17) EGD - MAC (12/31/17) ganglion, left ankle H/O inguinal hernia repair Nuclear senile cataract Oseotomy (10/06/98) TONNY BILATERAL FEET Rotator Cuff Repair (06/23/13) Right with distal clavical excision Family History Mother , 88 Diabetes Essential hypertension Heart disease Hyperlipidemia Father , 63 Neoplasm BLADDER Sister Hyperlipidemia Breast cancer Brother Diabetes Essential hypertension Hyperlipidemia Neoplasm PROSTATE Prostate cancer Maternal Grandfather No problems noted. Paternal Grandfather No problems noted. Maternal Grandmother Diabetes Paternal Grandmother No problems noted. 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 Pets and animals: Yes Pets and animals: dog(s) Sexually active: No Do you think of yourself as: straight/heterosexual Current gender identity: female What is your relationship status?: How often do you talk on the phone with friends or family?: three or more times per week How often do you get together with friends or relatives?: twice per week How often do you attend rastafarian or nondenominational services?: decline to answer Do you belong to any clubs or organized social groups?: no Panel score (0-1 are the most socially isolated patients): 1 What type of physical activity do you participate in: none Nhung/Christian: No preference Special nhung needs: No Seatbelt use: always Drive intox 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 Date GA/Weeks # Preg Succ Route Wgt Sex Labor Lgth Anesthesia Location Prov Complic 12/13/1955 40 No Yes vaginal Female 10/12/1959 40 No Yes vaginal Male Meds Allergies and Home Medications Allergies Allergy/AdvReac Type Severity Reaction Status Date / Time bee venom protein (honey bee) Allergy Severe Anaphylaxsi Verified 01/05/22 17:32 s hornet venom Allergy Severe Anaphylaxsi Verified 01/05/22 17:32 s oxycodone Allergy Intermediate Severe Verified 01/05/22 17:32 itching red yeast rice Allergy rash Uncoded 01/05/22 17:32 Home Medications Medication Instructions Recorded Confirmed Type cholecalciferol (vitamin D3) 50 1,000 unit PO DAILY 09/01/16 01/05/22 History mcg (2,000 unit) capsule (Vitamin D3) blood-glucose meter (FreeStyle ##1 07/05/17 01/05/22 Rx Lite Meter kit) FreeStyle Lancets 28 gauge #100 ea 06/15/20 01/05/22 Rx (lancets) albuterol sulfate 90 mcg/actuation 1 puff inhalation Q6H PRN #3 puffs 12/20/20 01/05/22 Rx aerosol inhaler (ProAir HFA) levetiracetam 1,000 mg tablet 1,000 mg PO BID #180 tabs 06/14/21 01/05/22 Rx blood sugar diagnostic (FreeStyle #100 strips 06/21/21 01/05/22 Rx Lite Strips) ferrous gluconate 324 mg (37.5 mg 324 mg PO DAILY #90 tabs 09/19/21 01/05/22 Rx iron) tablet potassium chloride 10 mEq 10 meq PO DAILY #90 tabs 09/19/21 01/05/22 Rx tablet,extended release calcium carb-vit [id number] 1 tab PO DAILY 01/05/22 01/05/22 History 333 mg-200 unit-133 mg-5 mg tablet calcium carbonate 600 mg calcium 600 mg PO DAILY 01/05/22 01/05/22 History (1,500 mg) tablet (Calcium) furosemide 20 mg tablet 20 mg PO DAILY 01/05/22 01/05/22 History magnesium gluconate 27.5 mg 27.5 mg PO BID 01/05/22 01/05/22 History magnesium (500 mg) tablet milk thistle 150 mg capsule 150 mg PO DAILY 01/05/22 01/05/22 History ursodiol 300 mg capsule 300 mg PO BID 01/05/22 01/05/22 History Exam Const General: cooperative, comfortable, not in distress, not anxious and not ill appearing Nutritional Appearance: thin Orientation: alert, awake and oriented x3 Limitations: mental status not altered HENMT Head: normal to inspection Mouth: moist mucous membranes Eyes Sclera: abnormal sclerae (Mild scleral icterus) Neck Neck: supple and no lymphadenopathy noted Resp Effort & Inspection: normal respiratory effort Auscultation: wheezes Cardio Jugular venous pressure: no JVD Rate: regular rate Rhythm: regular rhythm Heart Sounds: no murmurs GI Inspection: normal to inspection and non-distended Palpation: soft, no guarding, no hernias, not rigid and nontender Percussion: normal to percussion Auscultation: normal bowel sounds Skin General skin exam: no rashes or lesions noted Neuro General: patient alert, patient awake and patient oriented x3 Cognition: normal cognition Speech: speech normal Motor: muscle tone normal throughout Extrem General: no edema Results Labs Result diagrams: 01/06/22 06:07 01/06/22 06:07 Labs: Laboratory Results - last 24 hr 01/05/22 01/05/22 01/05/22 17:55 17:58 18:03 WBC RBC Hgb Hct MCV MCH MCHC RDW Plt Count MPV Immature Gran % Neutrophils % Lymphocytes % Monocytes % Eosinophils % Basophils % Nucleated RBC % Absolute Neutrophils Absolute Lymphocytes Absolute Monocytes Absolute Eosinophils Absolute Basophils VBG Lactate Sodium 140 Potassium 3.9 Chloride 104 Carbon Dioxide 29.2 Anion Gap 6.8 BUN 16 Creatinine 0.6 Estimated GFR/1.73 m2 >= 60.00 Glucose 144 H Calcium 9.5 Total Bilirubin 3.4 H AST 120 H ALT 63 H Alkaline Phosphatase 231 H Troponin I Total Protein 7.1 Albumin 2.8 L Lipase 81 Urine Color Yellow Urine Clarity Clear Urine pH 7.0 Ur Specific [place] 1.020 Urine Protein Negative Urine Ketones Negative Urine Blood Trace-intact H Urine Nitrite Negative Urine Bilirubin Negative Urine Urobilinogen 0.2 Ur Leukocyte Esterase Negative Urine RBC 3-5 H Urine WBC Negative Ur Epithelial Cells Rare Urine Crystals Negative Urine Bacteria Negative Urine Mucus Negative Ur Culture Indicated? No Urine Glucose Negative COVID-19 Source Nasal/Nares SARS-CoV-2 (PCR) Negative 01/05/22 01/05/22 01/05/22 18:03 18:03 19:33 WBC 11.14 H RBC 4.30 Hgb 13.5 Hct 39.6 MCV 92 MCH 31.4 MCHC 34.1 RDW 15.8 H Plt Count 138 MPV 12.8 H Immature Gran % 0.3 Neutrophils % 83.3 Lymphocytes % 7.7 Monocytes % 7.4 Eosinophils % 0.7 Basophils % 0.6 Nucleated RBC % 0.0 Absolute Neutrophils 9.28 H Absolute Lymphocytes 0.86 L Absolute Monocytes 0.82 H Absolute Eosinophils 0.08 Absolute Basophils 0.07 VBG Lactate 1.4 Sodium Potassium Chloride Carbon Dioxide Anion Gap BUN Creatinine Estimated GFR/1.73 m2 Glucose Calcium Total Bilirubin AST ALT Alkaline Phosphatase Troponin I < 50 Total Protein Albumin Lipase Urine Color Urine Clarity Urine pH Ur Specific [place] Urine Protein Urine Ketones Urine Blood Urine Nitrite Urine Bilirubin Urine Urobilinogen Ur Leukocyte Esterase Urine RBC Urine WBC Ur Epithelial Cells Urine Crystals Urine Bacteria Urine Mucus Ur Culture Indicated? Urine Glucose COVID-19 Source SARS-CoV-2 (PCR) 01/06/22 01/06/22 06:07 06:07 WBC 16.15 H RBC 3.53 L Hgb 10.9 L D Hct 33.2 L MCV 94 MCH 30.9 MCHC 32.8 RDW 16.0 H Plt Count 109 L MPV 12.5 H Immature Gran % 0.4 Neutrophils % 84.8 Lymphocytes % 7.1 Monocytes % 7.0 Eosinophils % 0.2 Basophils % 0.5 Nucleated RBC % 0.0 Absolute Neutrophils 13.70 H Absolute Lymphocytes 1.15 L Absolute Monocytes 1.13 H Absolute Eosinophils 0.03 Absolute Basophils 0.08 VBG Lactate Sodium 142 Potassium 3.1 L Chloride 107 Carbon Dioxide 31.3 Anion Gap 3.7 BUN 16 Creatinine 0.8 Estimated GFR/1.73 m2 >= 60.00 Glucose 94 Calcium 8.0 L Total Bilirubin 3.1 H AST 70 H ALT 42 Alkaline Phosphatase 152 H Troponin I Total Protein 5.0 L Albumin 1.9 L Lipase Urine Color Urine Clarity Urine pH Ur Specific [place] Urine Protein Urine Ketones Urine Blood Urine Nitrite Urine Bilirubin Urine Urobilinogen Ur Leukocyte Esterase Urine RBC Urine WBC Ur Epithelial Cells Urine Crystals Urine Bacteria Urine Mucus Ur Culture Indicated? Urine Glucose COVID-19 Source SARS-CoV-2 (PCR) Last Vital Signs Temp 99.0 F 01/06/22 07:57 Pulse 87 01/06/22 07:57 Resp 24 01/06/22 07:57 BP 98/54 L 01/06/22 07:57 Pulse Ox 90 L 01/06/22 07:57
[2022-01-06 11:29] LABS: Lab Add On Test DONE
[2022-01-06 11:42] LABS: C-Reactive Protein 3.18 mg/dL (0.0-0.3)
[2022-01-06 11:45] LABS: Iron 65 ug/dL (50-170); Total Iron Binding Capacity 235 ug/dL (250-450); Transferrin Sat 28 % (15-50)
[2022-01-06 12:05] LABS: Ferritin 99 ng/mL (8-252)
--- NOTE | 2022-01-06 13:03 | W.PM.PROGNOT ---
Date of Service Date of service: 01/06/22 Time of Service: 13:03 Assessment and Plan Assessment and plan (1) Cholecystitis: Status: Acute Assessment and plan: I did discuss the [place] with [place] [facility] They do not feel that this is an exacerbation of her primary biliary cholangitis (primary biliary sclerosis) but represents an acute cholecystitis. Based on her symptomatology and her adjuvant testing, she is not a good candidate for surgery. Results of CT and ultrasound reviewed. We will continue to treat her medically. She is not a good candidate for cholecystotomy tube drainage because of her cirrhosis. -Patient does not appear to have any other etiology for infection. There is no signs of pneumonia/UTI/DVT. UA was negative. Chest x-ray is negative. She does not have any ascites or signs of SBP. There is no thrush she has no open sores or breakdown. Repeat labs are pending. Her white count did increase today. She is on Zosyn. Clinically patient is feeling better. She has no right upper quadrant pain. She is hungry and does want to eat. I did review the case with Dr. Forrester (2) Cholangitis: Status: Acute (3) Elevated bilirubin: Status: Acute (4) Elevated LFTs: Status: Acute (5) Cystocele and rectocele with incomplete uterovaginal prolapse: Status: Acute Assessment and plan: - Patient did casually mention that she does have urinary continence and was supposed to be going for an anterior/posterior repair with Dr. Martínez.. Given the patient's history in the past 2 years of breast cancer/chronic iron deficiency anemia/COVID/poor nutrition and chronic weight loss/history of primary biliary cholangitis (formly sclerosis) and cirrhosis, I do not think she is a good candidate for surgery. Patient had a inguinal hernia repair at [facility] in and then wound up in the ICU on [place] [facility] [place] with exacerbation of her seizure disorder. She is on chronic Ursodiol. inr pd (6) Cirrhosis: Status: Acute (7) Hypotension: Status: Acute Qualifiers: Hypotension type: unspecified hypotension type Qualified Code(s): I95.9 - Hypotension, unspecified (8) Non-convulsive status epilepticus: Status: Chronic (9) Bilateral lower extremity edema: Status: Acute (10) Primary biliary cholangitis: Status: Chronic (11) Carcinoma of left breast: Qualifiers: Breast location: unspecified site of breast Estrogen receptor status: positive Patient sex: female Qualified Code(s): C50.912 - Malignant neoplasm of unspecified site of left female breast; Z17.0 - Estrogen receptor positive status [ER+] (12) Asthma: (13) Anemia: Assessment and plan: Chronic (14) Portal hypertension with esophageal varices: Status: Acute (15) Portal hypertensive gastropathy: Status: Acute (16) Compression fracture of lumbar vertebra: Status: Acute Assessment and plan: Does appear to be acute. Patient does appear to have osteopenia clinically. (17) Diabetes mellitus: Qualifiers: Diabetes mellitus complication status: without complication Diabetes mellitus detention insulin use: without detention use Diabetes mellitus type: type 2 Qualified Code(s): E11.9 - Type 2 diabetes mellitus without complications (18) Abnormal weight loss: Status: Acute Assessment and plan: Patient has a documented weight loss in the past 2 years. She has not lost least 8 to 10 pounds. Patient states she has no appetite and is not eating well. She eats frozen meals and boost daily. We are going to have difficulty maintaining her weight if she is forced to eat a low-fat diet because of her gallbladder. (19) Fe deficiency anemia: Status: Acute Assessment and plan: Patient has seen hematology in the past and determined to be of mixed etiology (20) HER2-positive carcinoma of breast: Status: Acute Assessment and plan: Patient did receive Herceptin for a year and a supposed to be on an aromatase inhibitor (21) Aromatase inhibitor use: Status: Acute (22) History of COVID-19: Subjective Subjective Interval history since last seen: Pt is doing well. no headaches. No CP or SOB. no productive cough. no dysuria. no leg pain or swelling. She denies any ascites. She has no pain. She has chronic right shoulder pain and back pain-and there is no exacerbation of any pain. She is hungry. She has been up walking around in the bed and up in a chair most of the morning. She has no right upper quadrant pain. She has no fever or chills. She has not had a bowel movement since she is been in the hospital. She denies having diarrhea at home. She says she does not eat much anymore. She does drink boost daily because she just does not have an appetite. Her BMI has definitely decreased in the last year. Her main complaint is urinary incontinence due to a bladder prolapse. She sees Dr. Weston and was going to have an A&P repair. She has a history of breast cancer. She did not like using a pessary Exam Const General: cooperative, healthy appearing, comfortable and no acute distress Orientation: alert, awake and oriented x3 Other: Temporal muscle wasting HENMT Head: normal to inspection Ears: hearing grossly normal bilaterally Other: She does not appear jaundiced. She has no thrush. She denies any pain chewing or any pain or difficulty swallowing Resp Effort & Inspection: able to speak in complete sentences Auscultation: clear to auscultation bilaterally Cardio Rate: regular rate Rhythm: regular rhythm GI Inspection: normal to inspection Palpation: soft Other: No ascites. No abdominal pain. Good bowel sounds. No rebound rigidity or guarding. Extrem Other: No cyanosis. Minimal swelling. She states she always has swelling in her lower extremities. Changes consistent with mild osteoarthritis noted in joints of knees hands and neck. Objective Last Vital Signs Temp 37.2 C 01/06/22 07:57 Pulse 87 01/06/22 07:57 Resp 24 01/06/22 07:57 BP 98/54 L 01/06/22 07:57 Pulse Ox 90 L 01/06/22 07:57 Laboratory Results - last 24 hr 01/05/22 01/05/22 01/05/22 17:55 17:58 18:03 WBC RBC Hgb Hct MCV MCH MCHC RDW Plt Count MPV Immature Gran % Neutrophils % Lymphocytes % Monocytes % Eosinophils % Basophils % Nucleated RBC % Absolute Neutrophils Absolute Lymphocytes Absolute Monocytes Absolute Eosinophils Absolute Basophils VBG Lactate Sodium 140 Potassium 3.9 Chloride 104 Carbon Dioxide 29.2 Anion Gap 6.8 BUN 16 Creatinine 0.6 Estimated GFR/1.73 m2 >= 60.00 Glucose 144 H Calcium 9.5 Iron TIBC Transferrin % Sat Ferritin Total Bilirubin 3.4 H AST 120 H ALT 63 H Alkaline Phosphatase 231 H Troponin I C-Reactive Protein Total Protein 7.1 Albumin 2.8 L Lipase 81 Urine Color Yellow Urine Clarity Clear Urine pH 7.0 Ur Specific [place] 1.020 Urine Protein Negative Urine Ketones Negative Urine Blood Trace-intact H Urine Nitrite Negative Urine Bilirubin Negative Urine Urobilinogen 0.2 Ur Leukocyte Esterase Negative Urine RBC 3-5 H Urine WBC Negative Ur Epithelial Cells Rare Urine Crystals Negative Urine Bacteria Negative Urine Mucus Negative Ur Culture Indicated? No Urine Glucose Negative COVID-19 Source Nasal/Nares SARS-CoV-2 (PCR) Negative Add-On Test Request 01/05/22 01/05/22 01/05/22 18:03 18:03 19:33 WBC 11.14 H RBC 4.30 Hgb 13.5 Hct 39.6 MCV 92 MCH 31.4 MCHC 34.1 RDW 15.8 H Plt Count 138 MPV 12.8 H Immature Gran % 0.3 Neutrophils % 83.3 Lymphocytes % 7.7 Monocytes % 7.4 Eosinophils % 0.7 Basophils % 0.6 Nucleated RBC % 0.0 Absolute Neutrophils 9.28 H Absolute Lymphocytes 0.86 L Absolute Monocytes 0.82 H Absolute Eosinophils 0.08 Absolute Basophils 0.07 VBG Lactate 1.4 Sodium Potassium Chloride Carbon Dioxide Anion Gap BUN Creatinine Estimated GFR/1.73 m2 Glucose Calcium Iron TIBC Transferrin % Sat Ferritin Total Bilirubin AST ALT Alkaline Phosphatase Troponin I < 50 C-Reactive Protein Total Protein Albumin Lipase Urine Color Urine Clarity Urine pH Ur Specific [place] Urine Protein Urine Ketones Urine Blood Urine Nitrite Urine Bilirubin Urine Urobilinogen Ur Leukocyte Esterase Urine RBC Urine WBC Ur Epithelial Cells Urine Crystals Urine Bacteria Urine Mucus Ur Culture Indicated? Urine Glucose COVID-19 Source SARS-CoV-2 (PCR) Add-On Test Request 01/06/22 01/06/22 01/06/22 06:07 06:07 06:07 WBC 16.15 H RBC 3.53 L Hgb 10.9 L D Hct 33.2 L MCV 94 MCH 30.9 MCHC 32.8 RDW 16.0 H Plt Count 109 L MPV 12.5 H Immature Gran % 0.4 Neutrophils % 84.8 Lymphocytes % 7.1 Monocytes % 7.0 Eosinophils % 0.2 Basophils % 0.5 Nucleated RBC % 0.0 Absolute Neutrophils 13.70 H Absolute Lymphocytes 1.15 L Absolute Monocytes 1.13 H Absolute Eosinophils 0.03 Absolute Basophils 0.08 VBG Lactate Sodium 142 Potassium 3.1 L Chloride 107 Carbon Dioxide 31.3 Anion Gap 3.7 BUN 16 Creatinine 0.8 Estimated GFR/1.73 m2 >= 60.00 Glucose 94 Calcium 8.0 L Iron TIBC Transferrin % Sat Ferritin 99 Total Bilirubin 3.1 H AST 70 H ALT 42 Alkaline Phosphatase 152 H Troponin I C-Reactive Protein 3.18 H Total Protein 5.0 L Albumin 1.9 L Lipase Urine Color Urine Clarity Urine pH Ur Specific [place] Urine Protein Urine Ketones Urine Blood Urine Nitrite Urine Bilirubin Urine Urobilinogen Ur Leukocyte Esterase Urine RBC Urine WBC Ur Epithelial Cells Urine Crystals Urine Bacteria Urine Mucus Ur Culture Indicated? Urine Glucose COVID-19 Source SARS-CoV-2 (PCR) Add-On Test Request 01/06/22 01/06/22 06:07 Unknown WBC RBC Hgb Hct MCV MCH MCHC RDW Plt Count MPV Immature Gran % Neutrophils % Lymphocytes % Monocytes % Eosinophils % Basophils % Nucleated RBC % Absolute Neutrophils Absolute Lymphocytes Absolute Monocytes Absolute Eosinophils Absolute Basophils VBG Lactate Sodium Potassium Chloride Carbon Dioxide Anion Gap BUN Creatinine Estimated GFR/1.73 m2 Glucose Calcium Iron 65 TIBC 235 L Transferrin % Sat 28 Ferritin Total Bilirubin AST ALT Alkaline Phosphatase Troponin I C-Reactive Protein Total Protein Albumin Lipase Urine Color Urine Clarity Urine pH Ur Specific [place] Urine Protein Urine Ketones Urine Blood Urine Nitrite Urine Bilirubin Urine Urobilinogen Ur Leukocyte Esterase Urine RBC Urine WBC Ur Epithelial Cells Urine Crystals Urine Bacteria Urine Mucus Ur Culture Indicated? Urine Glucose COVID-19 Source SARS-CoV-2 (PCR) Add-On Test Request DONE
[2022-01-06 13:25] LABS: INR 1.4 (0.9-1.1); Prothrombin Time 13.8 sec (9.3-11.0)
--- NOTE | 2022-01-06 15:29 | W.NUTCONSULT ---
Documented by User: Monico Wallace RDN 01/06/22 15:31 Date of service: 01/06/22 Time of Service: 15:45 Documented by User: Trang Correa 01/06/22 16:21 Nutritional Consult ASSESSMENT: Consult received for newly admitted pt with PHM significant for emphysema, cholecystitis with cholangitis, cirrhosis/portal HTN with esophageal varices. BMI at 26 and wnl for age at 86years. noted modest wt loss of 4% (3.2kg) over the last months. Pt sleeping at time of visit so unable to assess for any current appetite struggles, although these are noted in her history. Current nutrition needs assessed at: 1561kcals (MSJx1.2x1.2) for wt maintenance, 68g protein (1g/kg) and 1561cc fluid (1cc/kcal). Pt currently ordered fat restricted diet as she is not a candidate for surgery to address cholecystitis. NUTRITIONAL DIAGNOSIS: Increased nutrient needs and impaired nutrient utilization related to chronic liver disease and cholecystitis as evidenced by PMH and current documented decreased appetite. INTERVENTION: Provided pt with handouts on fat restricted diet and will inculde ensure clear TID to supplement at meals to provide and additional 720 kcals and 24g protein with 0g fat. MONITORING AND EVALUATION: Will follow up with pt to reinforce nutrition education and answer questions on Sunday and will continue to monitor intake and toleration of ensure clear. Time Spent in Nutritional Counseling and Treatment: 0
--- NOTE | 2022-01-06 16:44 | PHA.REVIEW ---
Pharmacy Admission Review - Admission Clinical Review (Last Updated 01/06/22 @ 11:56 by Solomon Estrella MD) Aromatase inhibitor use (Acute) HER2-positive carcinoma of breast (Acute) Fe deficiency anemia (Acute) Abnormal weight loss (Acute) Compression fracture of lumbar vertebra (Acute) Portal hypertensive gastropathy (Acute) Portal hypertension with esophageal varices (Acute) Cholecystitis (Acute) Hypokalemia (Acute) Cholangitis (Acute) Elevated bilirubin (Acute) Nausea and vomiting (Acute) Tachycardia (Acute) Elevated LFTs (Acute) Cystocele and rectocele with incomplete uterovaginal prolapse (Acute) Cirrhosis (Acute) Hypotension (Acute) Bilateral lower extremity edema (Acute) bee venom protein (honey bee) Allergy (Severe, Verified 01/05/22 17:32) Anaphylaxsis hornet venom Allergy (Severe, Verified 01/05/22 17:32) Anaphylaxsis oxycodone Allergy (Intermediate, Verified 01/05/22 17:32) Severe itching red yeast rice Allergy (Uncoded 01/05/22 17:32) rash Resuscitation Status Full Code Height 5 ft 2 in Weight 64.982 kg - Renal Dosing Renal Dosing: BUN 16 mg/dL (7-18) 01/06/22 06:07 Creatinine 0.8 mg/dL (0.55-1.02) 01/06/22 06:07 Medications needing adjustments: Reviewed (Crcl ~41.4 mL/min current meds okay) - Anticoagulation Anticoagulation: Hgb 10.9 g/dL (11.2-15.7) L D 01/06/22 06:07 Hct 33.2 % (36.0-46.0) L 01/06/22 06:07 Plt Count 109 10^3/uL (130-400) L 01/06/22 06:07 INR 1.4 (0.9-1.1) H 01/06/22 13:08 Creatinine 0.8 mg/dL (0.55-1.02) 01/06/22 06:07 DVT Prophylaxis: Reviewed (Has SCDs and TEDs ordered) Therapeutic Anticoagulation: N/A - Opiate Usage Evaluate Pain Scale/Pains Meds: Reviewed Scheduled Bowel Reg ordered if on Opiates?: No (no opioids given so far) - Relevant Labs Sodium 142 mmol/L (136-145) 01/06/22 06:07 Potassium 3.1 mmol/L (3.5-5.1) L 01/06/22 06:07 Chloride 107 mmol/L (98-107) 01/06/22 06:07 C-Reactive Protein 3.18 mg/dL (0.0-0.3) H 01/06/22 06:07 Electrolytes, C-Reactive P, ESR: Reviewed (IV K+ ordered) - DM Control DM Control: Glucose 94 mg/dL (74-106) 01/06/22 06:07 Finger Stick Blood Glucose 147 Finger Stick Blood Glucose 147 Insulin Dosing: Reviewed (DM noted in pt's medical history, no meds noted on pt's home med list. Previous A1c 5.5 on 12/19/21.) - Heart Failure/NC Heart Failure/NC: Troponin I < 50 ng/L (<or=60) 01/05/22 18:03 EF%, DRU's, B-Blockers, Diuretics: Reviewed - BP Control BP Control: Blood Pressure 98/54 If elevated: Reviewed (BP was elevated on admission but has been low to normal so far today.) - Qtc Review If Elevated: N/A (QTc 434 on admission) - IV to PO Switch IV Medications: Reviewed - Home Meds Home Med List reviewed: Reviewed Relevent Home Meds Not ordered & why?: albuterol (PRN), furosemide, potassium - Current meds Current Medication Order Review: Intervened (Discontinued duplicate med orders and DI meds that had already been given.) - Comments Comments/Follow Ups: Watch BP, BG, SCr, plts, K+, labs and for med changes (possible renal dose adjustments, IV to PO, possible need of BM meds, home meds) Antibiotic Activity - Pharmacy Antibiotic Review Pharmacy Antibiotic Activity: Reviewed, no change (zosyn continues (day 2 starts this evening), BC pending)
[2022-01-06] MEDS: levETIRAcetam 500 MG TAB 1000 MG PO (19:46)
[2022-01-06] MEDS: Ursodiol 300 MG CAP PO (19:46)
[2022-01-06] MEDS: Acetaminophen 325 MG TAB 650 MG PO (21:29)
[2022-01-07] VITALS (7 sets, daily range): BP systolic 96–124; BP diastolic 54–74; PULSE 64–79; RESP 15–16; TEMP 35.9–36.6; O2SAT 96–98
[2022-01-07] MEDS: Normal Saline Flush 10 ML SYR IVP ×4 (01:05→10:51)
[2022-01-07] MEDS: PIPERACILLIN/TAZO 3.375 GM in Normal Saline 50 ML IVPB ×2 (03:45→10:51)
[2022-01-07 06:53] LABS: ALT 40 U/L (14-59); AST 66 U/L (15-37); Alkaline Phosphatase 141 U/L (46-116); Anion Gap 5.5 mmol/L (3-11); BUN 20 mg/dL (7-18); Bilirubin, Total 1.9 mg/dL (0.2-1.0); CO2 29.5 mmol/L (21.0-32.0); CREATININE 0.7 mg/dL (0.55-1.02); Calcium 8.2 mg/dL (8.5-10.1); Chloride 105 mmol/L (98-107); GGT 57 U/L (5-55); Glucose 76 mg/dL (74-106); Potassium 3.6 mmol/L (3.5-5.1); Sodium 140 mmol/L (136-145); Total Protein 5.1 g/dL (6.4-8.2)
[2022-01-07] MEDS: Ursodiol 300 MG CAP PO ×2 (10:06→10:51)
[2022-01-07] MEDS: levETIRAcetam 500 MG TAB 1000 MG PO (10:06)
[2022-01-07 10:12] LABS: Lab Add On Test DONE
[2022-01-07 10:20] LABS: HCT 32.8 % (36.0-46.0); HGB 10.7 g/dL (11.2-15.7); MCHC 32.6 % (32.0-36.0); MCV 95 fL (80-95); MPV 12.2 fL (8.0-11.0); Platelet Count 100 10^3/uL (130-400); RBC 3.45 10^6/uL (3.93-5.22); RDW 16.1 % (11.7-14.6); RDW-SD 56.6 fL; WBC 8.97 10^3/uL (4.4-10.8)
[2022-01-07 12:06] LABS: Lactate 1.3 mmol/L (0.6-1.4)
[2022-01-07] MEDS: Lactated Ringers 500 ML IV (12:26)
[2022-01-07] MEDS: Spironolactone 25 MG TAB 12.5 MG PO (14:48)
--- NOTE | 2022-01-07 15:18 | DSE_ITS ---
Date of service: 01/07/22 Time of Service: 15:18 DS: Diagnosis Discharge Diagnosis (1) Cholecystitis: Status: Acute (2) Cholangitis: Status: Acute (3) Elevated bilirubin: Status: Acute (4) Elevated LFTs: Status: Acute (5) Cystocele and rectocele with incomplete uterovaginal prolapse: Status: Acute (6) Cirrhosis: Status: Acute (7) Hypotension: Status: Acute (8) Non-convulsive status epilepticus: Status: Chronic (9) Bilateral lower extremity edema: Status: Acute (10) Primary biliary cholangitis: Status: Chronic (11) Carcinoma of left breast: (12) Asthma: (13) Anemia: (14) Portal hypertension with esophageal varices: Status: Acute (15) Portal hypertensive gastropathy: Status: Acute (16) Compression fracture of lumbar vertebra: Status: Acute (17) Diabetes mellitus: (18) Abnormal weight loss: Status: Acute (19) Fe deficiency anemia: Status: Acute (20) HER2-positive carcinoma of breast: Status: Acute (21) Aromatase inhibitor use: Status: Acute (22) History of COVID-19: (23) Essential hypertension: (24) Hypercholesterolemia: Discharge Plan Disposition Patient Disposition: HOME Condition: Serious Discharge Details Reason For Visit: Cholangitis Admit Date/Time: 01/05/22 20:56 Admit Provider: Solomon Estrella Attending Provider: Solomon Estrella Primary Care Provider: Macarena Blankenship Hospital Course Hospital Course: see addendum Home Meds and New Rx's Prescriptions: New amoxicillin-pot clavulanate 875-125 mg tablet 1 tab PO BID 4 Days Qty: 8 0RF Bio-K plus 50 billion cell capsule,delayed release(DR/EC) 1 cap PO DAILY 30 Days Qty: 30 0RF Continued ferrous gluconate 324 mg (37.5 mg iron) tablet 324 mg PO DAILY Qty: 90 3RF furosemide 20 mg tablet 20 mg PO DAILY milk thistle 150 mg capsule 150 mg PO DAILY Label Comments: 01/05/22- pt unsure of dose Rx Instructions: give with meal/snack calcium carbonate [Calcium 600] 600 mg calcium (1,500 mg) tablet 600 mg PO DAILY Label Comments: 01/05/22- pt unsure of dose magnesium gluconate 27.5 mg magne- sium (500 mg) tablet 27.5 mg PO BID calcium carb-D3-mag [id number] [phone] sc-dhlv-tw-mg tablet 1 tab PO DAILY Label Comments: 01/05/22- pt unsure of dose Rx Instructions: administer with a meal ursodiol 300 mg capsule 0 mg PO BID Label Comments: 01/05/22- pt states takes two 300 mg pills in am and one 300 mg tab at night. albuterol sulfate [ProAir HFA] 90 mcg/actuation HFA aerosol inhaler 1 puff Inhalation Q6H PRN Qty: 3 4RF cholecalciferol (vitamin D3) [Vitamin D3] 2,000 UNIT capsule 1,000 unit PO DAILY (DME) blood-glucose meter [FreeStyle Lite Meter] 1 EACH kit 1 ea Miscellaneous DAILY Qty: 1 0RF (DME) lancets [FreeStyle Lancets] 28 gauge misc 1 ea Miscellaneous DAILY Qty: 100 6RF Rx Instructions: One daily levetiracetam 1,000 mg tablet 1,000 mg PO BID Qty: 180 3RF (DME) FreeStyle Lite Strips Strip 1 ea Miscellaneous DAILY Qty: 100 3RF Rx Instructions: Once daily E11.9 potassium chloride 10 mEq tablet extended release 10 meq PO DAILY Qty: 90 3RF Discharge Instructions Additional Instructions: -OK to shower. Cover left leg to shower -Lot fat for two weeks: Foods to Avoid High-fat foods include: ? Foods that are fried, like [place] fries and potato chips ? High-fat meats, such as nathan, bologna, sausage, ground beef, and ribs, pork products ? High-fat dairy products, such as cheese, ice cream, cream, whole milk, and sour cream ? Pizza ? Foods made with lard or butter ? Creamy soups or sauces ? Meat gravies ? Chocolate ? Oils, such as palm and coconut oil ? Skin of chicken or turkey ?? Nuts and nut butters ?? Avocadoes -Ensure or Boost three times a day, in between meals. -If you were given an incentive spirometry (breathing manager test?), continue to do this 10x/hour while awake. -We do want you up walking, at least 5-6 times per day. This is very important to prevent pneumonia and blood clots. You can climb stairs, take them slowly. -You may find that you are very tired - this is normal after being in the hospital. -Wound care: you will change the bandage every other day. Wash wound with a mild soap and water. apply Mepilex 4x4 plain dressing. Keep clean and dry -applu eucerin cream to both legs at night daily. Don't put lotion in-between your toes. -Elevate legs when swollen -Please don't pick. -Continue same home meds. We will repeat lab works and assess your response to as needed spironolactone for lower extremity swelling at your follow-up appointment -Follow-up with Dr. Pelletier in clinic on . You will need to call on Sunday to make an appointment. [phone]. We will have you repeat labs prior to this appointment. Stand Alone Forms: Nursing Discharge Form Activity:: see above Equipment/Supplies:: No Equipment Needed Diet:: low fat Discharge Orders Discharge Orders: Discharge Order (Routine); Ordered 01/07/22 Ordered By: Fina Pelletier DS: Summary Time Spent with Patient providing and/or coordinating discharge services: Greater than 30 minutes Status at Discharge Functional status at discharge: uses cane/walker Overall status at discharge: patient is progressing back to baseline Mental Status: mental status grossly normal Speech and Movement: speech and movement normal Mood: congruent mood Affect: normal affect Exam Psych Mental Status: mental status grossly normal Speech and Movement: speech and movement normal Mood: congruent mood Affect: normal affect DS: Data Vitals/I&O Vitals and I&O: Vital Signs Temperature 35.9 C L 01/07/22 15:09 Temperature Source Tympanic 01/07/22 15:09 Pulse 69 01/07/22 15:09 Pulse Rhythm Regular 01/07/22 11:10 Pulse 102 H 01/05/22 21:50 Respiratory Rate 16 01/07/22 15:09 Respiratory Effort 01/07/22 11:10 Respiratory Depth Normal 01/07/22 11:10 Respiratory Pattern Normal 01/07/22 11:10 Blood Pressure 124/72 01/07/22 15:09 Blood Pressure Mean 59 01/05/22 21:45 Pulse Oximetry 97 01/07/22 15:09 Oxygen Delivery Method Room Air 01/07/22 15:09 Oxygen Flow Rate 0 01/07/22 15:09 Pain Level 0 01/07/22 03:49 Comment 01/07/22 15:02 Intake & Output 01/06/22 01/07/22 01/07/22 23:59 11:59 23:59 Intake Total 650 / 1310 550 / 1700 1150 / 1700 Output Total 800 / 1850 1050 / 1850 Balance 650 / 1310 -250 / -150 100 / -150 Intake: IV 250 / 910 50 / 100 50 / 100 Oral 400 / 400 500 / 1600 1100 / 1600 Output: Urine 800 / 1850 1050 / 1850 Other: Urine Color Yellow Yellow Straw Urine Appearance Clear Clear Clear Urine Odor Normal Comment patient voided independently moves ind/ uses call harmon for assist with o2 tubing Voiding Methods Toilet Toilet Toilet Data Completed and Pending Labs on day of discharge: Labs from last 24 hours 01/07/22 01/07/22 01/07/22 17:38 14:38 11:57 WBC RBC Hgb Hct MCV MCH MCHC RDW Plt Count MPV VBG Lactate Cancelled Cancelled 1.3 Sodium Potassium Chloride Carbon Dioxide Anion Gap BUN Creatinine Estimated GFR/1.73 m2 Glucose Calcium Total Bilirubin GGT AST ALT Alkaline Phosphatase C-Reactive Protein Total Protein Albumin Add-On Test Request 01/07/22 01/07/22 01/07/22 05:45 05:45 05:45 WBC 8.97 RBC 3.45 L Hgb 10.7 L Hct 32.8 L MCV 95 MCH 31.0 MCHC 32.6 RDW 16.1 H Plt Count 100 L MPV 12.2 H VBG Lactate Sodium 140 Potassium 3.6 Chloride 105 Carbon Dioxide 29.5 Anion Gap 5.5 BUN 20 H Creatinine 0.7 Estimated GFR/1.73 m2 >= 60.00 Glucose 76 Calcium 8.2 L Total Bilirubin 1.9 H GGT 57 H AST 66 H ALT 40 Alkaline Phosphatase 141 H C-Reactive Protein 6.20 H Total Protein 5.1 L Albumin 2.0 L Add-On Test Request DONE Preliminary micro results at discharge 01/05/22 19:33 Blood Culture - Preliminary Blood NO GROWTH 24 HOURS 01/05/22 19:25 Blood Culture - Preliminary Blood NO GROWTH 24 HOURS PFSH All Active Problems (Updated 01/07/22 @ 15:42 by Fina Pelletier DO) Open wound of left lower extremity without complication (Acute) Emphysema lung (Acute) Aromatase inhibitor use (Acute) HER2-positive carcinoma of breast (Acute) Fe deficiency anemia (Acute) History of iron deficiency anemia. She has seen hematology and thought it was due to a mixed etiology Abnormal weight loss (Acute) Compression fracture of lumbar vertebra (Acute) Portal hypertensive gastropathy (Acute) Portal hypertension with esophageal varices (Acute) Grade 1. [place] [facility] [place] Cholecystitis (Acute) Hypokalemia (Acute) Cholangitis (Acute) Elevated bilirubin (Acute) Nausea and vomiting (Acute) Tachycardia (Acute) Elevated LFTs (Acute) Cystocele and rectocele with incomplete uterovaginal prolapse (Acute) Fitted with #3 RS pessary 12/28/21 Cirrhosis (Acute) 2.2021-secondary to the primary biliary cholangitis, followed by GI at [facility] EGD with small varices in 10/2021. Pt unable to tolerate propranolol. Hypotension (Acute) Non-convulsive status epilepticus (Chronic) Bilateral lower extremity edema (Acute) Primary biliary cholangitis (Chronic) [place] [facility] [place] associated with chronically elevated transaminases Medical History (Updated 01/07/22 @ 15:42 by Fina Pelletier DO) Actinic keratosis Allergy to hymenoptera venom (12/13/17) Anemia 04/2021, chronic disease, HCT-31 Asthma Carcinoma of left breast Invasive intraductal, on arimedex, followed by Oncology Chronic pruritus Cortical age-related cataract of both eyes (12/19/16) Diabetes mellitus Diverticulosis Esophageal ulcer Essential hypertension Gastric ulcer Grade II internal hemorrhoids History of aspiration pneumonia History of COVID-19 Hypercholesterolemia Hypermetropia Intention tremor Left inguinal hernia Lumbar radiculitis Memory loss Obesity Osteoarthritis Primary osteoarthritis of left knee Syncope Synovial cyst of left popliteal space (09/01/16) Torn rotator cuff (06/23/13) Repair rotator cuff by Dr. Kaden Escobedo 06-23-2013 Urinary tract infection 05/2021-associated with hospital at [facility] with altered mental status Surgical History Biopsy of breast (04/18/17) benign breast tissue with cyst wall Colonoscopy - IV Sedation 10 + years ago- normal Colonoscopy - MAC (12/31/17) EGD - MAC (12/31/17) ganglion, left ankle H/O inguinal hernia repair Nuclear senile cataract Oseotomy (10/06/98) TONNY BILATERAL FEET Rotator Cuff Repair (06/23/13) Right with distal clavical excision Family History Mother , 88 Diabetes Essential hypertension Heart disease Hyperlipidemia Father , 63 Neoplasm BLADDER Sister Hyperlipidemia Breast cancer Brother Diabetes Essential hypertension Hyperlipidemia Neoplasm PROSTATE Prostate cancer Maternal Grandfather No problems noted. Paternal Grandfather No problems noted. Maternal Grandmother Diabetes Paternal Grandmother No problems noted. 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 Pets and animals: Yes Pets and animals: dog(s) Sexually active: No Do you think of yourself as: straight/heterosexual Current gender identity: female What is your relationship status?: How often do you talk on the phone with friends or family?: three or more times per week How often do you get together with friends or relatives?: twice per week How often do you attend yarsani or nondenominational services?: decline to answer Do you belong to any clubs or organized social groups?: no Panel score (0-1 are the most socially isolated patients): 1 What type of physical activity do you participate in: none Nhung/Uatsdin: No preference Special nhung needs: No Seatbelt use: always Drive intox or ride w/intox commercial front load 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 Date GA/Weeks # Preg Succ Route Wgt Sex Labor Lgth Anesth esia Location [facility] [place] 12/13/1953 40 No Yes vaginal Female 10/12/1957 42 No Yes vaginal Male
--- NOTE | 2022-01-07 19:34 | PDOC.CMDIS ---
- If Service Date Differs Date of service: 01/07/22 Time of Service: 19:34 LACE Index Scoring Tool - Questions: Length of Stay (in days): 2 Acuity (Admit via E.D.?): Yes Comorbidities: Any Tumor E.D. Visits: 2 - Answers: Total Score: 9 Risk of Readmission: Low Risk Care Management Discharge Reason for Hospitalization: Cholangitis Discharge Plan: Elina is discharged home with no services. She will follow up with her PCP, [facility] [place] [place] gastroenterology, and plan of care as prescribed. She is transported home by family via private vehicle. Patient/Family Education Needs: Review of discharge instructions, medications, limitations, follow up plan of care, and discuss Ask Me Three.
== END 2022-01-07 16:38 | disposition home or self-care (01) | DRG 445 ==
LOC: ER 21:40 → MS 22:16
PROVIDERS: Internal Medicine; Surgery; Admitting Provider Surgery; Emergency Provider Physician Assistant; PCP Family Medicine; Visit Provider Surgery
DX: K81.0 Acute cholecystitis (principal); K74.3 Primary biliary cirrhosis; I10 Essential (primary) hypertension; R00.0 Tachycardia, unspecified; R11.2 Nausea with vomiting, unspecified; N81.2 Incomplete uterovaginal prolapse; I95.9 Hypotension, unspecified; G40.801 Other epilepsy, not intractable, with status epilepticus; J45.909 Unspecified asthma, uncomplicated; C50.912 Malignant neoplasm of unspecified site of left female breast; E11.9 Type 2 diabetes mellitus without complications; K64.1 Second degree hemorrhoids; E78.00 Pure hypercholesterolemia, unspecified; M54.16 Radiculopathy, lumbar region; M17.12 Unilateral primary osteoarthritis, left knee; Z79.899 Other long term (current) drug therapy; D50.9 Iron deficiency anemia, unspecified; Z79.811 Long term (current) use of aromatase inhibitors; Z17.0 Estrogen receptor positive status [ER+]; K76.6 Portal hypertension; I85.10 Secondary esophageal varices without bleeding; E87.6 Hypokalemia; R60.0 Localized edema; K31.89 Other diseases of stomach and duodenum; M48.56XA Collapsed vertebra, not elsewhere classified, lumbar region, initial encounter for fracture; Z86.16 Personal history of COVID-19; R32 Unspecified urinary incontinence; R63.4 Abnormal weight loss; Z68.26 Body mass index [BMI] 26.0-26.9, adult
CPT/HCPCS: 36415; 80053; 83690; 85027; 87040; 87635; 93005; 96361; 96365; 96375; 99221; 99239; 99285; 71046; 74177; 76705; 81003; 81015; 82728; 82977; 83540; 83550; 83605; 84484; 85025; 85610; 86140; 93010; 94640; 99223; J0131; J1953; J2405; J2543; J3480; J3490; J7613

== ENCOUNTER 2022-01-12 03:03 | Outpatient (CLI) | payer MEDICARE, SELFPAY ==
[2022-01-12 13:33] LABS: Abs Immature Grans 0.02 10^3/uL (0.0-0.06); Absolute Basophil Count 0.07 10^3/uL (0.0-0.2); Absolute Lymphocyte Count 1.52 10^3/uL (1.2-3.4); Eosinophils % 2.8; HGB 12.4 g/dL (11.2-15.7); Immature Grans % 0.3; Lymphocytes % 21.1; MCH 30.3 pg (27.0-33.0); MCHC 32.6 % (32.0-36.0); MCV 93 fL (80-95); MPV 12.5 fL (8.0-11.0); Monocytes % 9.7; Neutrophils % 65.1; Platelet Count 129 10^3/uL (130-400); RBC 4.09 10^6/uL (3.93-5.22); RDW 15.5 % (11.7-14.6); RDW-SD 52.5 fL; WBC 7.21 10^3/uL (4.4-10.8)
[2022-01-12 13:47] LABS: ALT 48 U/L (14-59); AST 81 U/L (15-37); Albumin 2.4 g/dL (3.4-5.0); Alkaline Phosphatase 184 U/L (46-116); Anion Gap 3.5 mmol/L (3-11); BUN 13 mg/dL (7-18); Bilirubin, Total 2.1 mg/dL (0.2-1.0); C-Reactive Protein 1.84 mg/dL (0.0-0.3); CO2 29.5 mmol/L (21.0-32.0); CREATININE 0.7 mg/dL (0.55-1.02); Calcium 8.7 mg/dL (8.5-10.1); Chloride 102 mmol/L (98-107); Glucose 174 mg/dL (74-106); Sodium 135 mmol/L (136-145); Total Protein 6.2 g/dL (6.4-8.2)
== END 2022-01-12 03:04 | disposition home or self-care (01) ==
LOC: LBO 03:03
PROVIDERS: PCP Family Medicine; Visit Provider Surgery
DX: D50.9 Iron deficiency anemia, unspecified; E11.9 Type 2 diabetes mellitus without complications; E44.0 Moderate protein-calorie malnutrition; E87.6 Hypokalemia; G40.909 Epilepsy, unspecified, not intractable, without status epilepticus; I85.00 Esophageal varices without bleeding; K31.89 Other diseases of stomach and duodenum; K74.3 Primary biliary cirrhosis; K76.6 Portal hypertension; R63.4 Abnormal weight loss; Z86.16 Personal history of COVID-19; C50.912 Malignant neoplasm of unspecified site of left female breast
CPT/HCPCS: 11042; 36415; 80053; 99213; 85025; 86140

== ENCOUNTER 2022-02-02 03:04 | Outpatient (CLI) | payer MEDICARE, SELFPAY ==
[2022-02-02 08:01] LABS: HCT 37.6 % (36.0-46.0); HGB 12.6 g/dL (11.2-15.7)
[2022-02-02 08:18] LABS: ALT 71 U/L (14-59); AST 78 U/L (15-37); Albumin 2.4 g/dL (3.4-5.0); Alkaline Phosphatase 182 U/L (46-116); Anion Gap 5.1 mmol/L (3-11); BUN 19 mg/dL (7-18); Bilirubin, Total 2.6 mg/dL (0.2-1.0); CO2 29.9 mmol/L (21.0-32.0); CREATININE 0.7 mg/dL (0.55-1.02); Calcium 8.7 mg/dL (8.5-10.1); Chloride 106 mmol/L (98-107); Glucose 96 mg/dL (74-106); Potassium 3.4 mmol/L (3.5-5.1); Sodium 141 mmol/L (136-145); Total Protein 6.7 g/dL (6.4-8.2)
== END 2022-02-02 03:05 | disposition home or self-care (01) ==
LOC: LBO 03:04
PROVIDERS: PCP Family Medicine; Visit Provider Surgery
DX: D50.9 Iron deficiency anemia, unspecified (principal); E44.0 Moderate protein-calorie malnutrition; E87.6 Hypokalemia; G40.909 Epilepsy, unspecified, not intractable, without status epilepticus; I85.00 Esophageal varices without bleeding; J43.9 Emphysema, unspecified; K31.89 Other diseases of stomach and duodenum; K76.6 Portal hypertension; K81.9 Cholecystitis, unspecified; K83.09 Other cholangitis; R63.4 Abnormal weight loss; S81.802A Unspecified open wound, left lower leg, initial encounter
CPT/HCPCS: 36415; 80053; 99212; 85014; 85018; 86140

== ENCOUNTER 2022-02-08 09:45 | Emergency (ER) | payer MEDICARE, SELFPAY ==
[2022-02-08 09:48] VITALS: BP 169/80; PULSE 102; RESP 16; TEMP 36.6; O2SAT 95
--- NOTE | 2022-02-08 10:00 | DI.US_ITS ---
Exam(s) US LOWER EXTREMITY VENOUS RT EXAM: US LOWER EXTREMITY VENOUS RT CLINICAL HISTORY: swelling TECHNIQUE: Grayscale, color, and doppler imaging of the deep venous system of the right lower extrem ity was performed. COMPARISON: US US ABDOMEN LIMITED from 01/06/2022 FINDINGS: There is no evidence of intraluminal thrombus and there is normal compression and augmentation demons trated within the common femoral vein, femoral vein, and popliteal vein. In the ipsilateral calf the interrogated veins also exhibit normal compression/ augmentation properti es. The ipsilateral saphenofemoral junction is patent. IMPRESSION: 1. No evidence of DVT in the right lower extremity. DATA REPOSITORY:
[2022-02-08 10:35] LABS: Abs Immature Grans 0.02 10^3/uL (0.0-0.06); Absolute Basophil Count 0.05 10^3/uL (0.0-0.2); Absolute Eosinophil Count 0.23 10^3/uL (0.0-0.7); Absolute Lymphocyte Count 1.63 10^3/uL (1.2-3.4); Absolute Monocyte Count 0.54 10^3/uL (0.1-0.8); Absolute Neutrophil Count 6.46 10^3/uL (1.2-6.7); Basophils % 0.6; Eosinophils % 2.6; HGB 12.6 g/dL (11.2-15.7); Immature Grans % 0.2; Lymphocytes % 18.3; MCH 31.9 pg (27.0-33.0); MCHC 34.1 % (32.0-36.0); MCV 94 fL (80-95); Neutrophils % 72.3; Platelet Count 119 10^3/uL (130-400); RBC 3.95 10^6/uL (3.93-5.22); RDW 17.1 % (11.7-14.6); RDW-SD 58.5 fL; WBC 8.93 10^3/uL (4.4-10.8)
--- NOTE | 2022-02-08 10:41 | W.ED.GENAD ---
Discharge Plan Disposition Patient Disposition: HOME Condition: Stable Discharge Details Clinical Impression: Edema of right lower leg Primary Care Provider: Macarena Blankenship ED Provider: Drew Granados Home Meds and New Rx's Prescriptions: Continued ferrous gluconate 324 mg (37.5 mg iron) tablet 324 mg PO DAILY Qty: 90 3RF furosemide 20 mg tablet 20 mg PO DAILY milk thistle 150 mg capsule 150 mg PO DAILY Label Comments: 01/05/22- pt unsure of dose Rx Instructions: give with meal/snack calcium carbonate [Calcium 600] 600 mg calcium (1,500 mg) tablet 600 mg PO DAILY Label Comments: 01/05/22- pt unsure of dose magnesium gluconate 27.5 mg magne- sium (500 mg) tablet 27.5 mg PO BID calcium carb-D3-mag [id number] [phone] nw-nbsm-fu-mg tablet 1 tab PO DAILY Label Comments: 01/05/22- pt unsure of dose Rx Instructions: administer with a meal (DME) Curafil Gel Wound Gel See Rx Instructions .Route Qty: 1020 0RF Rx Instructions: As directed albuterol sulfate [ProAir HFA] 90 mcg/actuation HFA aerosol inhaler 1 puff Inhalation Q6H PRN Qty: 3 4RF cholecalciferol (vitamin D3) [Vitamin D3] 2,000 UNIT capsule 1,000 unit PO DAILY (DME) blood-glucose meter [FreeStyle Lite Meter] 1 EACH kit 1 ea Miscellaneous DAILY Qty: 1 0RF (DME) lancets [FreeStyle Lancets] 28 gauge misc 1 ea Miscellaneous DAILY Qty: 100 6RF Rx Instructions: One daily levetiracetam 1,000 mg tablet 1,000 mg PO BID Qty: 180 3RF (DME) FreeStyle Lite Strips Strip 1 ea Miscellaneous DAILY Qty: 100 3RF Rx Instructions: Once daily E11.9 potassium chloride 10 mEq tablet extended release 10 meq PO DAILY Qty: 90 3RF spironolactone 25 mg tablet 12.5 mg PO .every three days PRN (Reason: leg swelling) Qty: 30 5RF Discharge Instructions Instructions: Edema (ED) Additional Instructions: Ultrasound and blood work are both unremarkable. Rest, elevate, compresses as tolerated. Please watch for new or worsening symptoms and return to the ER for any concerns. Otherwise please contact your primary care provider to discuss your ER visit and need for outpatient reevaluation if symptoms are to persist. Medical Decision Making 87-year-old female presents concern for a DVT of her right lower extremity. She has noticed mild discoloration and swelling over the past few days, denies any obvious injury, history of DVT or PE, chest pain, shortness of breath, leg pain. Clinically she appears well, nontoxic. Evaluation is most consistent with mild dependent edema will obtain CBC to evaluate for potential leukocytosis and obtain ultrasound of the right lower extremity Ultrasound reveals no evidence of DVT Heart rate in triage of 102 but during my evaluation it was in the 90s. Upon reevaluation heart rate of 86. CBC reveals no evidence of leukocytosis. Medical Records Medical records reviewed: Yes I reviewed the patient's medical records. Imaging Data Radiologic Study: Attestation: I personally reviewed and interpreted this imaging study as follows: Imaging: Ultrasound Radiologist's impression: Exam(s) US LOWER EXTREMITY VENOUS RT EXAM: US LOWER EXTREMITY VENOUS RT CLINICAL HISTORY: swelling TECHNIQUE: Grayscale, color, and doppler imaging of the deep venous system of the right lower extremity was performed. COMPARISON: US US ABDOMEN LIMITED from 01/06/2022 FINDINGS: There is no evidence of intraluminal thrombus and there is normal compression and augmentation demonstrated within the common femoral vein, femoral vein, and popliteal vein. In the ipsilateral calf the interrogated veins also exhibit normal compression/ augmentation properties. The ipsilateral saphenofemoral junction is patent. IMPRESSION: 1. No evidence of DVT in the right lower extremity. Lab Data Lab results reviewed: Yes I reviewed the patient's lab results. Labs: Laboratory Tests Range/Units 02/08/22 10:29 WBC (4.4-10.8) 10^3/uL 8.93 RBC (3.93-5.22) 10^6/uL 3.95 Hgb (11.2-15.7) g/dL 12.6 Hct (36.0-46.0) % 37.0 MCV (80-95) fL 94 MCH (27.0-33.0) pg 31.9 MCHC (32.0-36.0) % 34.1 RDW (11.7-14.6) % 17.1 H Plt Count (130-400) 10^3/uL 119 L MPV (8.0-11.0) fL 12.0 H Immature Gran % 0.2 Neutrophils % 72.3 Lymphocytes % 18.3 Monocytes % 6.0 Eosinophils % 2.6 Basophils % 0.6 Nucleated RBC % (0.0-0.3) % 0.0 Absolute Neutrophils (1.2-6.7) 10^3/uL 6.46 Absolute Lymphocytes (1.2-3.4) 10^3/uL 1.63 Absolute Monocytes (0.1-0.8) 10^3/uL 0.54 Absolute Eosinophils (0.0-0.7) 10^3/uL 0.23 Absolute Basophils (0.0-0.2) 10^3/uL 0.05 HPI General Mode of arrival: ambulatory. Date/Time Provider Initiated Documentation: 02/08/22 10:02. Limitations to Documentation: no limitations. Information obtained by: patient. History of Present Illness 87 year old F presents to the emergency department with the chief complaint of R leg swelling, described as mild, with intensity rated at 2. Quality is described as other (tightness), and is localized to the right and lower extremity. Patient reports no radiation. Patient started experiencing this day(s) (3) and it has been constant. No relieving factors improve symptom(s), No exacerbating factors reported . Patient notes no other symptoms.. Patient did receive the following treatments prior to arrival, none Related Data Home Medications Medication Instructions Recorded Confirmed cholecalciferol (vitamin D3) 50 1,000 unit PO DAILY 09/01/16 02/08/22 mcg (2,000 unit) capsule (Vitamin D3) blood-glucose meter (FreeStyle ##1 07/05/17 02/08/22 Lite Meter kit) FreeStyle Lancets 28 gauge #100 ea 06/15/20 02/08/22 (lancets) albuterol sulfate 90 mcg/actuation 1 puff inhalation Q6H PRN #3 puffs 12/20/20 02/08/22 aerosol inhaler (ProAir HFA) levetiracetam 1,000 mg tablet 1,000 mg PO BID #180 tabs 06/14/21 02/08/22 blood sugar diagnostic (FreeStyle #100 strips 06/21/21 02/08/22 Lite Strips) ferrous gluconate 324 mg (37.5 mg 324 mg PO DAILY #90 tabs 09/19/21 02/08/22 iron) tablet potassium chloride 10 mEq 10 meq PO DAILY #90 tabs 09/19/21 02/08/22 tablet,extended release calcium carb-vit [id number]-[id number]-dxkn 1 tab PO DAILY 01/05/22 02/08/22 333 mg-200 unit-133 mg-5 mg tablet calcium carbonate 600 mg calcium 600 mg PO DAILY 01/05/22 02/08/22 (1,500 mg) tablet (Calcium) furosemide 20 mg tablet 20 mg PO DAILY 01/05/22 02/08/22 magnesium gluconate 27.5 mg 27.5 mg PO BID 01/05/22 02/08/22 magnesium (500 mg) tablet milk thistle 150 mg capsule 150 mg PO DAILY 01/05/22 02/08/22 spironolactone 25 mg tablet 12.5 mg PO .every three days PRN 01/13/22 02/08/22 leg swelling #30 tabs gel dressing (Curafil Gel Wound #1,020 grams 02/02/22 02/08/22 topical) Previous Rx's Medication Instructions Recorded blood-glucose meter (FreeStyle ##1 07/05/17 Lite Meter kit) FreeStyle Lancets 28 gauge #100 ea 06/15/20 (lancets) albuterol sulfate 90 mcg/actuation 1 puff inhalation Q6H PRN #3 puffs 12/20/20 aerosol inhaler (ProAir HFA) levetiracetam 1,000 mg tablet 1,000 mg PO BID #180 tabs 06/14/21 blood sugar diagnostic (FreeStyle #100 strips 06/21/21 Lite Strips) ferrous gluconate 324 mg (37.5 mg 324 mg PO DAILY #90 tabs 09/19/21 iron) tablet potassium chloride 10 mEq 10 meq PO DAILY #90 tabs 09/19/21 tablet,extended release spironolactone 25 mg tablet 12.5 mg PO .every three days PRN 01/13/22 leg swelling #30 tabs gel dressing (Curafil Gel Wound #1,020 grams 02/02/22 topical) Allergies Allergy/AdvReac Type Severity Reaction Status Date / Time spironolactone AdvReac Intermediate Verified 02/08/22 09:51 red yeast rice Allergy rash Uncoded 02/08/22 09:51 General Stated Complaint: Orthopedic MOISES: 3 Review of Systems Constitutional Constitutional: Denies fever(s) and Denies weakness Cardiovascular Cardiovascular: Denies chest pain and Denies dyspnea Respiratory Respiratory: Denies cough and Denies dyspnea Musculoskeletal Musculoskeletal: Denies numbness and Denies tingling Integumentary/Breasts Skin/Breast: Reports erythema Neurologic Neurologic: Denies numbness, Denies tingling and Denies weakness Hematologic/Lymphatic Hematologic/Lymphatic: Denies easy bleeding and Denies easy bruising PFSH All Active Problems (Updated 02/08/22 @ 11:35 by JESSICA Romo) Edema of right lower leg (Acute) Osteoporosis (Chronic) Protein-calorie malnutrition, moderate (Acute) Seizure disorder (Chronic) Open wound of left lower extremity without complication (Acute) Emphysema lung (Acute) Fe deficiency anemia (Acute) History of iron deficiency anemia. She has seen hematology and thought it was due to a mixed etiology Abnormal weight loss (Acute) Compression fracture of lumbar vertebra (Acute) Portal hypertensive gastropathy (Acute) Portal hypertension with esophageal varices (Acute) Grade 1. 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 Pt unable to tolerate propranolol. Bilateral lower extremity edema (Acute) Primary biliary cholangitis (Chronic) followed by GI [facility], associated with chronically elevated transaminases Medical History Actinic keratosis Allergy to hymenoptera venom (12/13/17) Anemia 04/2021, chronic disease, HCT-31 Asthma Carcinoma of left breast Invasive intraductal, on arimedex, followed by Oncology Cholangitis Chronic pruritus Cortical age-related cataract of both eyes (12/19/16) Diabetes mellitus Diverticulosis Esophageal ulcer Essential hypertension Gastric ulcer Grade II internal hemorrhoids HER2-positive carcinoma of breast History of aspiration pneumonia History of COVID-19 Hypercholesterolemia Hypermetropia Hypotension Intention tremor Left inguinal hernia Lumbar radiculitis Memory loss Nausea and vomiting Non-convulsive status epilepticus Obesity Osteoarthritis Primary osteoarthritis of left knee Syncope Synovial cyst of left popliteal space (09/01/16) Torn rotator cuff (06/23/13) Repair rotator cuff by Dr. Kaden Escobedo 06-23-2013 Urinary tract infection 05/2021-associated with hospital at [facility] with altered mental status Surgical History Biopsy of breast (04/18/17) benign breast tissue with cyst wall Colonoscopy - IV Sedation 10 + years ago- normal Colonoscopy - MAC (12/31/17) EGD - MAC (12/31/17) ganglion, left ankle H/O inguinal hernia repair Nuclear senile cataract Oseotomy (10/06/98) TONNY BILATERAL FEET Rotator Cuff Repair (06/23/13) Right with distal clavical excision Family History Mother , 88 Diabetes Essential hypertension Heart disease Hyperlipidemia Father , 63 Neoplasm BLADDER Sister Hyperlipidemia Breast cancer Brother Diabetes Essential hypertension Hyperlipidemia Neoplasm PROSTATE Prostate cancer Maternal Grandfather No problems noted. Paternal Grandfather No problems noted. Maternal Grandmother Diabetes Paternal Grandmother No problems noted. 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 Pets and animals: Yes Pets and animals: dog(s) Sexually active: No Do you think of yourself as: straight/heterosexual Current gender identity: female What is your relationship status?: How often do you talk on the phone with friends or family?: three or more times per week How often do you get together with friends or relatives?: twice per week How often do you attend orthodoxy or buddhism services?: decline to answer Do you belong to any clubs or organized social groups?: no Panel score (0-1 are the most socially isolated patients): 1 What type of physical activity do you participate in: none Nhung/Oriental Orthodox: No preference Special nhung needs: No Seatbelt use: always Drive intox or ride w/intox hazmat cdl a 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 Date GA/Weeks # Preg Succ Route Wgt Sex Labor Lgth Anesthesia Location Prov Complic 12/13/1955 40 No Yes vaginal Female 10/12/1959 40 No Yes vaginal Male Exam Const General: cooperative, healthy appearing, comfortable and no acute distress Orientation: alert and awake HENMT Head: normal to inspection, normocephalic and atraumatic Eyes Conjunctivae: conjunctivae normal Neck Neck: normal visual inspection, trachea midline and supple Resp Effort & Inspection: normal respiratory effort and able to speak in complete sentences Auscultation: clear to auscultation bilaterally Cardio Rate: regular rate Rhythm: regular rhythm Neuro General: patient alert, patient awake, moves all extremities and no focal motor deficits Cognition: normal cognition Speech: speech normal Gait: normal gait Motor: muscle tone normal throughout Sensory Exam: no sensory deficits noted Extrem General: capillary refill normal Other: Right lower extremity with minimal swelling, nonpitting edema, mild hyperpigmentation. There is no tenderness. Normal capillary refill and dorsalis pedal pulse. Negative Homans' sign. Left lower extremity with a healing anterior wound. No erythema, warmth, edema. Psych Appearance: grossly normal Mental Status: mental status grossly normal Course Vital Signs Vital signs: Vital Signs Temperature 36.6 C 02/08/22 09:48 Pulse 102 H 02/08/22 09:48 Respiratory Rate 16 02/08/22 09:48 Blood Pressure 169/80 H 02/08/22 09:48 Pulse Oximetry 95 02/08/22 09:48 Temperature 36.6 C 02/08/22 09:48 Temperature Source Temporal Artery Scan 02/08/22 09:48 Pulse 102 H 02/08/22 09:48 Respiratory Rate 16 02/08/22 09:48 Respiratory Effort Non-Labored 02/08/22 09:52 Blood Pressure 169/80 H 02/08/22 09:48 Blood Pressure Position Sitting 02/08/22 09:48 Pulse Oximetry 95 02/08/22 09:48 Oxygen Delivery Method Room Air 02/08/22 09:48 Oxygen Flow Rate 0 02/08/22 09:48 Pain Level 0 02/08/22 09:48 Lab/Test Results Lab/Test Results: Laboratory Tests Range/Units 02/08/22 10:29 WBC (4.4-10.8) 10^3/uL 8.93 RBC (3.93-5.22) 10^6/uL 3.95 Hgb (11.2-15.7) g/dL 12.6 Hct (36.0-46.0) % 37.0 MCV (80-95) fL 94 MCH (27.0-33.0) pg 31.9 MCHC (32.0-36.0) % 34.1 RDW (11.7-14.6) % 17.1 H Plt Count (130-400) 10^3/uL 119 L MPV (8.0-11.0) fL 12.0 H Immature Gran % 0.2 Neutrophils % 72.3 Lymphocytes % 18.3 Monocytes % 6.0 Eosinophils % 2.6 Basophils % 0.6 Nucleated RBC % (0.0-0.3) % 0.0 Absolute Neutrophils (1.2-6.7) 10^3/uL 6.46 Absolute Lymphocytes (1.2-3.4) 10^3/uL 1.63 Absolute Monocytes (0.1-0.8) 10^3/uL 0.54 Absolute Eosinophils (0.0-0.7) 10^3/uL 0.23 Absolute Basophils (0.0-0.2) 10^3/uL 0.05
== END 2022-02-08 11:46 | disposition home or self-care (01) ==
PROVIDERS: Emergency Provider Physician Assistant; PCP Family Medicine
DX: R60.0 Localized edema (principal); L81.9 Disorder of pigmentation, unspecified; J45.909 Unspecified asthma, uncomplicated; I10 Essential (primary) hypertension; E11.9 Type 2 diabetes mellitus without complications; Z87.891 Personal history of nicotine dependence
CPT/HCPCS: 36415; 99284; 85025; 93971

== ENCOUNTER → 2022-02-23 10:19 | Outpatient (BNVA) | payer MEDICARE, SELFPAY | PROVIDERS: PCP Family Medicine; Referring Provider Family Medicine; Visit Provider Surgery | DX: S81.802A Unspecified open wound, left lower leg, initial encounter (principal); X58.XXXA Exposure to other specified factors, initial encounter; E44.0 Moderate protein-calorie malnutrition; R60.0 Localized edema; R79.1 Abnormal coagulation profile; C44.709 Unspecified malignant neoplasm of skin of left lower limb, including hip; D50.9 Iron deficiency anemia, unspecified; K74.3 Primary biliary cirrhosis | CPT/HCPCS: 11106; 99213 ==

== ENCOUNTER 2022-02-23 12:32 | Outpatient (REF) | payer MEDICARE, SELFPAY ==
--- NOTE | 2022-02-23 10:45 | SKI_PTH ---
PATIENT: Elina Duarte LOC: [facility] U#:[id number] AGE/SX: 87/F ROOM: RE02/23/[address]: Fina Pelletier : 1935 BED: DIS: 02/23/2022 SPEC #: [id number] RECD: 02/23/22 12:50 STATUS: XIN REBakari #: [id number] KRISTIE: 02/23/22 10:[address]: Fina Pelletier DEPT: Surgical Specimen RECD BY: Yaneli He ENTERED: 02/23/22 12:51 SP TYPE: DENISA HUNG DR: Macarena Blankenship Tissues: 1 - SKIN BIOPSY(SHAVE/PUNCH) Procedures: SKIN LEVEL 4 Comments: [id number]
== END 2022-02-23 12:33 | disposition home or self-care (01) ==
LOC: LBN 12:32
PROVIDERS: PCP Family Medicine; Visit Provider Surgery
DX: C44.709 Unspecified malignant neoplasm of skin of left lower limb, including hip (principal)
CPT/HCPCS: 88305

== ENCOUNTER → 2022-02-27 02:29 | Outpatient (CLI) | payer MEDICARE, SELFPAY ==
--- NOTE | 2022-02-27 07:15 | DI.MAMMO_ITS ---
Exam(s) MG MAMMO SCREENING 60 MIN DUR EXAM: MG MAMMO SCREENING 60 MIN DUR CLINICAL HISTORY: breast cancer screening,h/o breast ca,z12.31,z85.3 TECHNIQUE: Mammograms were interpreted according to the usual protocol including computer analysis w [employer] CAD system, tomosynthesis and C-view imaging. COMPARISON: 2011 through 2020 FINDINGS: The breasts are composed of scattered fibroglandular densities, Breast Density category B. Surgical clips are noted in the upper outer quadrant of the left breast. There is scarring in this a maria g. Diffuse left breast skin thickening is again noted. No suspicious masses or suspicious microca lcifications are seen. No skin thickening or abnormal axillary lymph nodes are seen. There has been no significant change from prior exams. IMPRESSION: BI-RADS Cat 2 - Benign Findings Yearly screening mammography is recommended. Breast Density - Category B, scattered fibroglandular densities. A negative radiographic report should not delay biopsy if a dominant or clinically suspicious mass is present. Up to ten percent of cancers are not identified on mammography. A negative report may reinforce clinical impression. Adenosis and dense breasts may obscure an underlying neoplasm. False positive reports average 6 to 10%. Patient will receive a letter notifying them of these results.
== END ==
PROVIDERS: PCP Family Medicine; Visit Provider Family Medicine
DX: Z12.31 Encounter for screening mammogram for malignant neoplasm of breast (principal); Z85.3 Personal history of malignant neoplasm of breast
CPT/HCPCS: 77063; 77067

== ENCOUNTER → 2022-03-09 09:46 | Outpatient (BNVA) | payer MEDICARE, SELFPAY | PROVIDERS: PCP Family Medicine; Referring Provider Family Medicine; Visit Provider Surgery | DX: Z51.89 Encounter for other specified aftercare (principal); C44.729 Squamous cell carcinoma of skin of left lower limb, including hip; R79.1 Abnormal coagulation profile; I89.0 Lymphedema, not elsewhere classified; J43.9 Emphysema, unspecified | CPT/HCPCS: 99213; 99215 ==

== ENCOUNTER 2022-03-20 11:33 | Outpatient (CLI) | payer MEDICARE, SELFPAY ==
[2022-03-20 12:45] LABS: Anion Gap 6.8 mmol/L (3-11); BUN 11 mg/dL (7-18); CO2 30.2 mmol/L (21.0-32.0); CREATININE 0.8 mg/dL (0.55-1.02); Calcium 9.1 mg/dL (8.5-10.1); Chloride 105 mmol/L (98-107); Estimated GFR 72.16 (mL/min/1.73m2); Glucose 131 mg/dL (74-106); Potassium 3.8 mmol/L (3.5-5.1); Sodium 142 mmol/L (136-145)
== END 2022-03-20 11:34 | disposition home or self-care (01) ==
LOC: LOS 11:36
PROVIDERS: PCP Family Medicine; Visit Provider Family Medicine
DX: R60.0 Localized edema (principal); Z00.00 Encounter for general adult medical examination without abnormal findings
CPT/HCPCS: 36415; 80048

== ENCOUNTER → 2022-05-10 09:43 | Outpatient (BNVA) | payer MEDICARE, SELFPAY | PROVIDERS: PCP Family Medicine; Referring Provider Family Medicine; Visit Provider Psychiatry & Neurology Neurology | DX: Z79.891 Long term (current) use of opiate analgesic (principal); K74.60 Unspecified cirrhosis of liver; Z86.16 Personal history of COVID-19; I10 Essential (primary) hypertension; E11.9 Type 2 diabetes mellitus without complications; G40.901 Epilepsy, unspecified, not intractable, with status epilepticus; R41.3 Other amnesia | CPT/HCPCS: 99214 ==

== ENCOUNTER → 2022-05-15 10:01 | Outpatient (BNVA) | payer MEDICARE, SELFPAY | PROVIDERS: PCP Family Medicine; Referring Provider Family Medicine; Visit Provider Student in an Organized Health Care Education/Training Program | DX: M17.11 Unilateral primary osteoarthritis, right knee (principal); M17.12 Unilateral primary osteoarthritis, left knee | CPT/HCPCS: 20610; 99213; J1040 ==

== ENCOUNTER 2022-08-09 03:04 | Outpatient (CLI) | payer MEDICARE, SELFPAY ==
[2022-08-09 12:15] LABS: Abs Immature Grans 0.03 10^3/uL (0.0-0.06); Absolute Basophil Count 0.08 10^3/uL (0.0-0.2); Absolute Lymphocyte Count 1.32 10^3/uL (1.2-3.4); Absolute Monocyte Count 0.67 10^3/uL (0.1-0.8); Absolute Neutrophil Count 5.56 10^3/uL (1.2-6.7); Eosinophils % 2.5; HCT 37.8 % (36.0-46.0); HGB 12.4 g/dL (11.2-15.7); Immature Grans % 0.4; Lymphocytes % 16.8; MCH 30.6 pg (27.0-33.0); MCHC 32.8 % (32.0-36.0); MCV 93 fL (80-95); MPV 11.5 fL (8.0-11.0); Monocytes % 8.5; Neutrophils % 70.8; Platelet Count 172 10^3/uL (130-400); RBC 4.05 10^6/uL (3.93-5.22); RDW 16.6 % (11.7-14.6); RDW-SD 56.6 fL; WBC 7.86 10^3/uL (4.4-10.8)
[2022-08-09 12:38] LABS: ALT 39 U/L (14-59); AST 72 U/L (15-37); Albumin 2.5 g/dL (3.4-5.0); Alkaline Phosphatase 196 U/L (46-116); Anion Gap 5.4 mmol/L (3-11); BUN 12 mg/dL (7-18); Bilirubin, Total 2.8 mg/dL (0.2-1.0); CO2 29.6 mmol/L (21.0-32.0); CREATININE 0.7 mg/dL (0.55-1.02); Calcium 9.2 mg/dL (8.5-10.1); Chloride 107 mmol/L (98-107); Glucose 103 mg/dL (74-106); Potassium 3.7 mmol/L (3.5-5.1); Sodium 142 mmol/L (136-145); Total Protein 6.8 g/dL (6.4-8.2)
== END 2022-08-09 03:05 | disposition home or self-care (01) ==
LOC: LOS 03:05
PROVIDERS: PCP Family Medicine; Visit Provider Family Medicine
DX: D50.9 Iron deficiency anemia, unspecified (principal); K74.60 Unspecified cirrhosis of liver
CPT/HCPCS: 36415; 80053; 85025

== ENCOUNTER → 2022-08-14 09:46 | Outpatient (BNVA) | payer MEDICARE, SELFPAY | PROVIDERS: PCP Family Medicine; Referring Provider Family Medicine; Visit Provider Student in an Organized Health Care Education/Training Program | DX: M17.11 Unilateral primary osteoarthritis, right knee (principal); M17.12 Unilateral primary osteoarthritis, left knee | CPT/HCPCS: 20610; J1040 ==

== ENCOUNTER 2022-09-21 17:39 | Outpatient (REF) | payer MEDICARE, SELFPAY ==
[2022-09-21 17:36] LABS: Abs Immature Grans 0.04 10^3/uL (0.0-0.06); Absolute Basophil Count 0.06 10^3/uL (0.0-0.2); Absolute Eosinophil Count 0.15 10^3/uL (0.0-0.7); Absolute Lymphocyte Count 0.98 10^3/uL (1.2-3.4); Absolute Neutrophil Count 8.47 10^3/uL (1.2-6.7); Basophils % 0.6; Eosinophils % 1.4; HGB 12.3 g/dL (11.2-15.7); Immature Grans % 0.4; Lymphocytes % 9.2; MCH 31.7 pg (27.0-33.0); MCHC 34.2 % (32.0-36.0); MCV 93 fL (80-95); MPV 12.4 fL (8.0-11.0); Monocytes % 8.5; Neutrophils % 79.9; Platelet Count 148 10^3/uL (130-400); RBC 3.88 10^6/uL (3.93-5.22); RDW 18.8 % (11.7-14.6); RDW-SD 64.2 fL
[2022-09-21 17:45] LABS: ALT 51 U/L (14-59); AST 70 U/L (15-37); Albumin 2.3 g/dL (3.4-5.0); Alkaline Phosphatase 215 U/L (46-116); Anion Gap 5.7 mmol/L (3-11); BUN 16 mg/dL (7-18); CO2 34.3 mmol/L (21.0-32.0); CREATININE 0.7 mg/dL (0.55-1.02); Calcium 8.4 mg/dL (8.5-10.1); Chloride 101 mmol/L (98-107); Glucose 88 mg/dL (74-106); Sodium 141 mmol/L (136-145); Total Protein 6.3 g/dL (6.4-8.2)
[2022-09-21 18:36] LABS: Potassium 2.5 mmol/L (3.5-5.1)
== END 2022-09-21 17:40 | disposition home or self-care (01) ==
LOC: LBN 17:39
PROVIDERS: PCP Family Medicine; Visit Provider Family Medicine
DX: I89.0 Lymphedema, not elsewhere classified (principal); K74.60 Unspecified cirrhosis of liver
CPT/HCPCS: 80053; 85025

== ENCOUNTER 2022-09-23 08:36 | Inpatient (IN) | payer MEDICARE, SELFPAY ==
[2022-09-23] VITALS (25 sets, daily range): BP systolic 101–149; BP diastolic 42–79; PULSE 91–107; RESP 12–27; TEMP 36.7–37; O2SAT 89–97
--- NOTE | 2022-09-23 | DI.RAD_ITS ---
Exam(s) XR PORTABLE CHEST AP EXAM: XR PORTABLE CHEST AP CLINICAL HISTORY: s/p right thoracentesis. TECHNIQUE: 2D digital imaging was performed. COMPARISON: CR,XR XR CHEST 2V PA LATERAL from 01/05/2022 FINDINGS: Single AP portable view. Surgical clips are again noted in the left axilla. Mild cardiomegaly. Mediastinum not widened. No confluent infiltrates nor pleural effusions. Increased pulmonary venous pattern. Possibly relate d to less than optimal inspiratory effort versus pulmonary congestion but unchanged from the prior st udy of 01/05/2022. No airspace pulmonary edema. Surgical clips are again noted in the left axilla and evidence of previ ous rotator cuff surgery in the right shoulder. IMPRESSION: Lung findings as above but without significant change compared to prior chest x-ray of 01/05/2022. DATA REPOSITORY: RADIATION DOSE DELIVERED:
--- NOTE | 2022-09-23 08:30 | RT.EKG_ITS ---
APPROVED REPORT Exam: Resting ECG Reason for Exam: sob Patient Location: E HR:94 bpm ECG Measurements Heart Rate 94 AXIS MI 174 P 76 QRSd 77 QRS -9 QT 360 T 43 QTc 451 Conclusion Sinus rhythm...normal P axis, V-rate 60- 99 Atrial premature complexes...SV complexes w/ short R-R intvls Low voltage, precordial leads...precordial leads <1.0mV
--- NOTE | 2022-09-23 09:00 | DI.CT_ITS ---
Exam(s) CT CHEST PE CTA EXAM: CT CHEST PE CTA CLINICAL HISTORY: shortness of breath, recent surgery, ?pe. TECHNIQUE: Imaging Protocol: CT angiography of the chest was performed using pulmonary embolus brittany col. Multi planar reconstructions were performed. CONTRAST MATERIAL: Intravenous: Omnipaque 350 Contrast volume: 100 cc COMPARISON: CT CT ABDOMEN PELVIS W from 01/05/2022 FINDINGS: CHEST: PULMONARY ARTERIES: There are no obvious intraluminal filling defects to suggest acute pulmonary embo li.The right lower lobe is collapsed due to a large right pleural effusion but vessels are seen to be patent within the collapsed right lower lobe. No intraluminal filling defects seen in the opposite-left lung. LUNGS: There is a large right pleural effusion with significant collapse of the entire right lower lo be. No pleural effusion on the left side. There is mild haziness of the entire left lung noted. Is no pleural effusion on the left side. MEDIASTINUM: There is no hilar nor mediastinal adenopathy. Surgical clips noted in left axilla.Visual ized thyroid unremarkable. CARDIAC: Mild cardiomegaly. No pericardial effusion.Caliber of the thoracic aorta is within normal l imits. No evidence of aortic dissection. There is no significant shift of the interventricular septu m. PARTIALLY VISUALIZED UPPERMOST ABDOMEN: Prominent ascites. Hepatic cirrhosis. Cysts in the liver. OSSEOUS: T10 superior endplate compression fracture, unchanged from December 2021. More prominent compre ssion fracture of T12 is also unchanged.. IMPRESSION: 1. No evidence of obvious acute pulmonary emboli. Large right pleural effusion with subjacent collap se of the right lower lobe. No pleural effusion on the opposite-left side. Mild haziness of the lef t lung noted. 2. Mild cardiomegaly. No evidence of aortic dissection. No pericardial effusion. 3. Prominent ascites and hepatic cirrhosis noted. Compression fractures T10 and T12 again noted, unchanged. RADIATION DOSE DELIVERED: 243.54mGy.cm Total DLP DATA REPOSITORY: All CT scans at this facility are submitted to the National Radiology Data Registry (NRDR) Dose Index Registry (DIR) with the [employer] (ACR). RADIATION OPTIMIZATION: All CT scans at this facility use at least one of these dose optimization te chniques: automated exposure control; mA and/or kV adjustment per patient size (includes targeted exa ms where dose is matched to clinical indication); or iterative reconstruction.
--- NOTE | 2022-09-23 09:07 | ED.GENADUL_ITS ---
Discharge Plan Disposition Patient Disposition: Admit to [facility] Discharge Details Clinical Impression: Shortness of breath, Pleural effusion on right Primary Care Provider: Macarena Blankenship ED Provider: Eldon Lu Home Meds and New Rx's Prescriptions: Continued milk thistle 150 mg capsule 150 mg PO DAILY Patient Comments: 01/05/22- pt unsure of dose Rx Instructions: give with meal/snack calcium carbonate [Calcium 600] 600 mg calcium (1,500 mg) tablet 600 mg PO DAILY Patient Comments: 01/05/22- pt unsure of dose magnesium gluconate 27.5 mg magne- sium (500 mg) tablet 27.5 mg PO BID calcium carb-D3-mag [id number] [phone] em-wxmz-pq-mg tablet 1 tab PO DAILY Patient Comments: 01/05/22- pt unsure of dose Rx Instructions: administer with a meal levetiracetam 1,000 mg tablet 1,000 mg PO BID Qty: 180 3RF ursodiol 300 mg capsule 300 mg PO Patient Comments: TAKE ONE CAPSULE BY MOUTH THREE TIMES A DAY furosemide 20 mg tablet 20 mg PO DAILY cholecalciferol (vitamin D3) [Vitamin D3] 2,000 UNIT capsule 1,000 unit PO DAILY benzonatate 100 mg capsule 100 mg PO TID PRN (Reason: cough) Qty: 30 0RF albuterol sulfate [ProAir HFA] 90 mcg/actuation HFA aerosol inhaler 1 puff Inhalation Q6H PRN Qty: 3 4RF potassium chloride 10 mEq tablet extended release 10 meq PO DAILY Qty: 90 3RF potassium chloride 40 mEq/15 mL liquid 40 meq PO BID 3 Days Qty: 90 0RF Medical Decision Making 87 yo female with 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 She denies any chest pain, no fevers or chills, states she was exposed to someone with covid this past week. She did have a colpocleisis at the end of August per patient at [facility] but has been ambulatory since. She had labs done on 09/21 which showed a K of 2.5. She started oral potassium yesterday and daughter brought her in today for an eval. She arrives with room air saturation of 89% and with exertion appears dyspneic. She has wheezing bilaterally at the bases, no jvd, mild swelling ofher lower extremities up to the mid tibia that she states is chronic, no calf tenderness. Given her recent surgery and shortness of breath, will proceed with cta of the chest to evaluate for pe vs infiltrate vs pulmonary edema. Will also obtain ekg, troponin, cbc, cmp and trial a duoneb. labs surprisingly show no significant acute abnormalities, her potassium is now normal. HEr ct shows no pe does have a large right sided pleural effusion along with her known cirrhosis, which is likely the cause of her pleural effusion. She has a room air saturation of 91% now. Discussed results with pt and recommended admission which she initially declined but after she was noted to have a room air saturation with any movement of 86% and her general malaise she was in agreement with admission, will discuss with hospitalist. Differential Diagnosis Differential Diagnosis: pe, asthma, covid, pneumonia Imaging Data Radiologic Study: Attestation: I personally reviewed and interpreted this imaging study as follows: Imaging: CT Scan Radiologist's impression: 1. Given the motion limitations, there no thrombi within the pulmonary arteries. 2. No thoracic aortic aneurysm or dissection. 3. Cirrhosis with large quantity of ascites and likely the cause of the large right pleural effusion. 4. Compressive atelectasis right lower lobe. 5. Emphysema. 6. Not seen December 04, 2018 is peripheral fibrosis involving the anterolateral left upper lobe. This may be related to the hypoventilation and should be followed after the large pleural effusion has been addressed. Lab Data Lab results reviewed: Yes I reviewed the patient's lab results. ECG Data Attestation: I personally reviewed and interpreted this ECG (s) as follows: Prior ECG tracings: available for review Interpretation: sinus, rate of 94, qtc 450, no stemi HPI General Mode of arrival: wheelchair . Date/Time Provider Initiated Documentation: 09/23/22 08:37 . Limitations to Documentation: no limitations . Information obtained by: patient and family . History of Present Illness 87 year old F presents to the emergency department with the chief complaint of low potassium, described as moderate, Patient started experiencing this day(s) (2) and it has been constant. No relieving factors improve symptom(s), No exacerbating factors reported . Patient notes shortness of breath; denies chest pain, fever/chills and nausea/vomiting. Patient did receive the following treatments prior to arrival, none Related Data Home Medications Medication Instructions Recorded Confirmed cholecalciferol (vitamin D3) 50 1,000 unit PO DAILY 09/01/16 09/23/22 mcg (2,000 unit) capsule (Vitamin D3) calcium carb-vit [id number] 1 tab PO DAILY 01/05/22 09/23/22 333 mg-200 unit-133 mg-5 mg tablet calcium carbonate 600 mg calcium 600 mg PO DAILY 01/05/22 09/23/22 (1,500 mg) tablet (Calcium) magnesium gluconate 27.5 mg 27.5 mg PO BID 01/05/22 09/23/22 magnesium (500 mg) tablet milk thistle 150 mg capsule 150 mg PO DAILY 01/05/22 09/23/22 ursodiol 300 mg capsule 300 mg PO 03/24/22 09/19/22 levetiracetam 1,000 mg tablet 1,000 mg PO BID #180 tabs 05/10/22 09/23/22 benzonatate 100 mg capsule 100 mg PO TID PRN cough #30 caps 05/24/22 09/23/22 albuterol sulfate 90 mcg/actuation 1 puff inhalation Q6H PRN #3 puffs 08/18/22 09/23/22 aerosol inhaler (ProAir HFA) potassium chloride 10 mEq 10 meq PO DAILY #90 tabs 08/18/22 09/19/22 tablet,extended release furosemide 20 mg tablet 20 mg PO DAILY 09/19/22 09/23/22 potassium chloride 40 mEq/15 mL 40 meq (15 mL) PO BID 3 days #90 mL 09/22/22 09/23/22 oral liquid Previous Rx's Medication Instructions Recorded levetiracetam 1,000 mg tablet 1,000 mg PO BID #180 tabs 05/10/22 benzonatate 100 mg capsule 100 mg PO TID PRN cough #30 caps 05/24/22 albuterol sulfate 90 mcg/actuation 1 puff inhalation Q6H PRN #3 puffs 08/18/22 aerosol inhaler (ProAir HFA) potassium chloride 10 mEq 10 meq PO DAILY #90 tabs 08/18/22 tablet,extended release potassium chloride 40 mEq/15 mL 40 meq (15 mL) PO BID 3 days #90 mL 09/22/22 oral liquid Allergies Allergy/AdvReac Type Severity Reaction Status Date / Time spironolactone AdvReac Intermediate Verified 09/23/22 09:39 red yeast rice Allergy rash Uncoded 09/23/22 09:39 General Stated Complaint: RespSymp MOISES: 3 Review of Systems All systems reviewed & are unremarkable except as noted in HPI and below Constitutional Constitutional: Denies chills and Denies fever(s) Cardiovascular Cardiovascular: Denies chest pain and Reports dyspnea Respiratory Respiratory: Denies cough and Reports dyspnea Gastrointestinal Gastrointestinal: Denies abdominal pain, Denies nausea and Denies vomiting Musculoskeletal Musculoskeletal: Denies joint swelling Integumentary/Breasts Skin/Breast: Denies rash PFSH All Active Problems (Updated 09/23/22 @ 13:06 by Eldon Lu MD) Primary osteoarthritis of left knee (Acute) Injection: 08/14/22; 05/15/2022; [place] Primary biliary cholangitis (Chronic) followed [place] [facility] associated with chronically elevated transaminases Cirrhosis (Acute) 2.2021-secondary to the primary biliary cholangitis, followed by GI at [facility] EGD with small varices in 10/2021. Pt unable to tolerate propranolol. 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 Documented [place] [facility] Compression fracture of lumbar vertebra (Acute) Fe deficiency anemia (Acute) History of iron deficiency anemia. 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 Lymphedema (Acute) Gallstones (Acute) RUQ pain & diarrhea Essential tremor (Acute) Primary osteoarthritis of right knee (Acute) Injection: 08/14/22; 05/15/2022; [place]19[place] History of colpocleisis (Acute) [place] colpocleisis posterior perineorrhaphy cystoscopy at [facility] 09/05/2022 Shortness of breath (Acute) Pleural effusion on right (Acute) Medical History (Updated 09/23/22 @ 13:06 by Eldon Lu MD) Actinic keratosis 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 Currently using a continence dish with knob. Persistent cystocele is present. Consultation with [facility] has been undertaken and she has an in person visit with them at the end of June,. They recommended colpocleisis. Diabetes mellitus Diverticulosis Esophageal ulcer Essential hypertension Gastric ulcer Grade II internal hemorrhoids History of aspiration pneumonia Hypercholesterolemia Hypermetropia Left inguinal hernia Obesity Osteoarthritis Palliative care patient Squamous cell carcinoma of skin of left lower extremity 3.5cm LLE Syncope Synovial cyst of left popliteal space (09/01/16) Torn rotator cuff (06/23/13) Repair rotator cuff by Dr. Kaden Escobedo 06-23-2013 Surgical History Biopsy of breast (04/18/17) benign breast tissue with cyst wall Colonoscopy - IV Sedation 10 + years ago- normal Colonoscopy - MAC (12/31/17) EGD - MAC (12/31/17) ganglion, left ankle H/O inguinal hernia repair Nuclear senile cataract Oseotomy (10/06/98) TONNY BILATERAL FEET Rotator Cuff Repair (06/23/13) Right with distal clavical excision Status post Mohs surgery for squamous cell carcinoma of skin Family History Mother , 88 Diabetes Essential hypertension Heart disease Hyperlipidemia Father , 63 Neoplasm BLADDER Sister Hyperlipidemia Breast cancer Brother Diabetes Essential hypertension Hyperlipidemia Neoplasm PROSTATE Prostate cancer Maternal Grandfather No problems noted. Paternal Grandfather No problems noted. Maternal Grandmother Diabetes Paternal Grandmother No problems noted. 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 Pets and animals: Yes Pets and animals: dog(s) Sexually active: No Do you think of yourself as: straight/heterosexual Current gender identity: female What is your relationship status?: How often do you talk on the phone with friends or family?: three or more times per week How often do you get together with friends or relatives?: once per week How often do you attend yazdanism or buddhist services?: decline to answer Do you belong to any clubs or organized social groups?: no Panel score (0-1 are the most socially isolated patients): 1 What type of physical activity do you participate in: none Frequency: does not exercise Nhung/Mu-Ism: No preference Special nhung needs: No Seatbelt use: always Drive intox or ride w/intox bookmobile 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 Date GA/Weeks # Preg Succ Route Wgt Sex Labor Lgth Anesth esia Location [facility] 12/13/1953 40 No Yes vaginal Female 10/12/1957 40 No Yes vaginal Male Exam Const General: no acute distress Orientation: alert HENMT Head: normal to inspection Ears: external ears normal General nose exam: external nose normal Mouth: moist mucous membranes Eyes General: appearance normal, both eyes and all related structures Neck Neck: normal visual inspection Resp Effort & Inspection: normal respiratory effort and able to speak in complete sentences Auscultation: wheezes Cardio Jugular venous pressure: no JVD Rate: regular rate GI Palpation: soft and nontender Skin General skin exam: no rashes or lesions noted Neuro General: patient alert and patient oriented x3 Extrem General: normal to inspection Psych Mental Status: mental status grossly normal Course Vital Signs Vital signs: Vital Signs Temperature 36.9 C 09/23/22 08:56 Pulse 99 H 09/23/22 08:56 Respiratory Rate 22 09/23/22 08:56 Blood Pressure 149/68 H 09/23/22 08:56 Pulse Oximetry 89 L 09/23/22 08:56 Temperature 36.9 C 09/23/22 08:56 Temperature Source Oral 09/23/22 08:56 Pulse 99 H 09/23/22 08:56 Respiratory Rate 09/23/22 08:56 Blood Pressure 149/68 H 09/23/22 08:56 Blood Pressure Position Sitting 09/23/22 08:56 Pulse Oximetry 89 L 09/23/22 08:56 Oxygen Delivery Method Room Air 09/23/22 08:56 Oxygen Flow Rate 0 09/23/22 08:56 Lab/Test Results Lab/Test Results: 09/23/22 08:48 Blood Blood Culture - Pending 09/23/22 08:48 Blood Blood Culture - Pending
[2022-09-23 09:58] LABS: Abs Immature Grans 0.02 10^3/uL (0.0-0.06); Absolute Basophil Count 0.06 10^3/uL (0.0-0.2); Absolute Lymphocyte Count 1.18 10^3/uL (1.2-3.4); Absolute Monocyte Count 0.89 10^3/uL (0.1-0.8); Absolute Neutrophil Count 6.08 10^3/uL (1.2-6.7); Basophils % 0.7; Eosinophils % 2.4; HCT 36.2 % (36.0-46.0); HGB 12.2 g/dL (11.2-15.7); Immature Grans % 0.2; MCH 31.4 pg (27.0-33.0); MCHC 33.7 % (32.0-36.0); MCV 93 fL (80-95); Monocytes % 10.6; Neutrophils % 72.1; Platelet Count 155 10^3/uL (130-400); RBC 3.88 10^6/uL (3.93-5.22); RDW 18.7 % (11.7-14.6); RDW-SD 63.8 fL; WBC 8.43 10^3/uL (4.4-10.8)
[2022-09-23] MEDS: Albuterol/Ipratropium 3 ML UPD VIAL UPD (10:00)
[2022-09-23 10:23] LABS: INR 1.3 (0.9-1.1); PTT Activated 27.5 sec (21.5-31.9); Prothrombin Time 13.7 sec (9.3-11.0)
[2022-09-23 10:46] LABS: COVID-19 PCR Negative (Negative); Influenza A PCR Negative (Negative); Influenza B PCR Negative (Negative); RSV PCR Negative (Negative)
[2022-09-23 10:51] LABS: Source Nasopharynx
[2022-09-23] MEDS: Normal Saline - Diluent 50 ML VIAL IJ (10:56)
[2022-09-23] MEDS: Omnipaque 350 MG/ML 500 ML BTL-Imaging package 80 ML IJ (10:57)
[2022-09-23] MEDS: Normal Saline Flush 10 ML SYR IVP ×2 (10:57→16:48)
[2022-09-23 11:10] LABS: Bilirubin Small (Negative); Blood Trace-intact (Negative); Clarity Clear (Clear); Glucose Negative (Negative); Ketones 15 mg/dL (Negative); Leukocyte Esterase Trace (Negative); Nitrite Negative (Negative); Specific Gravity 1.015 (1.005-1.025)
[2022-09-23 11:18] LABS: Casts 3-5 Hyaline LPF (Negative)
[2022-09-23 11:20] LABS: Bacteria Rare HPF (Negative); C & S Indicated? Yes; Crystals Negative HPF (Negative); Epithelial Cells Few HPF (Negative); Mucus Negative (Negative)
--- NOTE | 2022-09-23 11:23 | DI.VRAD_ITS ---
PROCEDURE INFORMATION: Exam: CTA Chest With Contrast Exam date and time: 09/23/2022 10:48 AM Age: 87 years old Clinical indication: Other: Shortness of breath, recent surgery, ? pe TECHNIQUE: Imaging protocol: Computed tomographic angiography of the chest with contrast. 3D rendering (Not supervised by radiologist): MIP and/or 3D reconstructed images were created by the technologist. Contrast material: OMNIPAQUE 350; Contrast volume: 80 ml; Contrast route: INTRAVENOUS (IV); COMPARISON: CT CHEST/ABD/PEL W 12/06/2018 11:07 AM FINDINGS: Limitations: Motion. Pulmonary arteries: Normal. No pulmonary emboli. Aorta: The aorta is normal in diameter. No dissection or transsection. Mild atherosclerotic plaque. Lungs: Complete atelectasis of the right lower lobe from pleural fusion compression. Centrilobular upper lobe emphysematous changes. There paraseptal cysts in the left lower lobe. Small amount of fibrosis in the anterolateral portion of the subpleural left upper lobe. Pleural spaces: Large right pleural effusion. No left pleural effusion. Heart: Mild biventricular cardiac enlargement. There is cardiac motion but no definite coronary artery calcifications or pericardial effusion. Lymph nodes: Unremarkable. No enlarged lymph nodes. Liver: Cirrhotic liver. Unchanged 1.4 cm cyst in the right lobe. No liver masses. Spleen: No enlargement but incompletely seen.The adrenal glands are normal. Intraperitoneal space: Large quantity of ascites. Bones/joints: The spine demonstrates mild degenerative changes at multiple levels. Soft tissues: Unremarkable. IMPRESSION: 1. Given the motion limitations, there no thrombi within the pulmonary arteries. 2. No thoracic aortic aneurysm or dissection. 3. Cirrhosis with large quantity of ascites and likely the cause of the large right pleural effusion. 4. Compressive atelectasis right lower lobe. 5. Emphysema. 6. Not seen December 04, 2018 is peripheral fibrosis involving the anterolateral left upper lobe. This may be related to the hypoventilation and should be followed after the large pleural effusion has been addressed. Dictated and Authenticated by: Marco Pacheco MD. Ordering:JILL Colón MD
[2022-09-23] MEDS: Furosemide 40 MG/4 ML VIAL IVP ×2 (12:02→16:47)
[2022-09-23 12:08] LABS: ALT 45 U/L (14-59); AST 65 U/L (15-37); Albumin 2.1 g/dL (3.4-5.0); Alkaline Phosphatase 183 U/L (46-116); Anion Gap 4.9 mmol/L (3-11); BUN 17 mg/dL (7-18); Bilirubin, Total 4.1 mg/dL (0.2-1.0); CO2 32.1 mmol/L (21.0-32.0); CREATININE 0.8 mg/dL (0.55-1.02); Calcium 8.8 mg/dL (8.5-10.1); Chloride 105 mmol/L (98-107); Estimated GFR 72.16 (mL/min/1.73m2); Glucose 78 mg/dL (74-106); Magnesium 1.9 mg/dL (1.8-2.4); NT-proBNP 183 pg/mL (<300); Potassium 3.7 mmol/L (3.5-5.1); Sodium 142 mmol/L (136-145); TSH (W/Ref FT4) 1.65 uIU/mL (0.36-3.74); Total Protein 6.4 g/dL (6.4-8.2); Troponin I < 50 ng/L (<or=60)
[2022-09-23 12:24] LABS: Procalcitonin 0.2 ng/mL
[2022-09-23 14:25] LABS: Troponin I < 50 ng/L (<or=60)
--- NOTE | 2022-09-23 16:11 | W.PM.HP.N ---
Date of service: 09/23/22 Time of Service: 16:11 Assessment and Plan Assessment and plan (1) Primary biliary cholangitis: Status: Chronic Assessment and plan: With cirrhosis, portal hypertension and esophogeal varices. 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 Gen Surgery consulted for thoracentesis evaluation. Lasix IV. Low Na diet. Likely to become a recurrent problem given her advanced cirrhosis. Palliative care consulted. (2) Cirrhosis: Status: Acute Assessment and plan: As above. Cont ursodiol. (3) Asthma: Assessment and plan: Cont prn albuterol nebs. Wheezing noted on presentation but improved. (4) Seizure disorder: Status: Chronic Assessment and plan: Cont levetiracetam 1,000mg BID (5) Protein-calorie malnutrition, moderate: Status: Acute Assessment and plan: Likely secondary to her cirrhosis. Offer supplemental protein. (6) Lymphedema: Status: Acute Assessment and plan: BLE wraps to be applied daily. (7) History of colpocleisis: Status: Acute Assessment and plan: 09/05/2022 underwent a LeFort colpocleisis with colpoperineorrhaphy with cystoscopy at [facility] on 09/05/2022.? (8) Pleural effusion on right: Status: Acute Assessment and plan: As above. Stable on 2L supplemental O2. Gen Surg consulted. (9) Essential hypertension: Assessment and plan: Controlled on no antihypertensive meds. Monitor. History of Present Illness History of Present Illness Chief Complaint: Shortness of breath Narrative: This is an 87 yo female with a PMH of primary biliary cholangitis, asthma, seizure disorder, breast cancer, DM2, HLD,HTN, essential tremor, protein-tyrel malnutrition. She presented with her daughter secondary to progressive shortness of air over the last several months. She also was noted to have a low K of 2.5 on 09/21/22. She started oral K supplemention the day prior to presentation. She has had no CP/palpitations. No F/C. She did have a covid exposure at some point in time in the previous week. In the ED her initial RA O2 saturation was 89%. Wheezes were noted. Fluvid was negative. WBC count 8.43. Hgb 12.2. Na 142. K 3.7. BUN 17. Creatinine 0.8. Total bilirubin 4.1. AST 65. Alt 45. AP 183. GGT 57. UA with tr leuk est, 5-10 WBCs, few epis, rare bacteria. Cx pending. CT chest w/o thrombi. Cirrhosis with a large quantity of ascites and large right pleural effusion. She was stable respiratory-clifford on 2L supplemental O2. Review of Systems All systems reviewed & are unremarkable except as noted in HPI and below PFSH All Active Problems Primary osteoarthritis of left knee (Acute) Injection: 08/14/22; 05/15/2022; 01/19/2022 ([facility]) Primary biliary cholangitis (Chronic) followed by GI [facility], associated with chronically elevated transaminases Cirrhosis (Acute) 2.2021-secondary to the primary biliary cholangitis, followed by GI at [facility] EGD with small varices in 10/2021. Pt unable to tolerate propranolol. 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 Documented by EGD at [facility] 2021 Compression fracture of lumbar vertebra (Acute) Fe deficiency anemia (Acute) History of iron deficiency anemia. She has seen hematology and thought it was due to a mixed etiology Emphysema lung (Acute) Seizure disorder (Chronic) Protein-calorie malnutrition, moderate (Acute) Osteoporosis (Chronic) Elevated INR (Acute) Due to chronic liver disease from PBC/PBS Lymphedema (Acute) Gallstones (Acute) RUQ pain & diarrhea Essential tremor (Acute) Primary osteoarthritis of right knee (Acute) Injection: 08/14/22; 05/15/2022; 01/19/2022 ([facility] [place]) History of colpocleisis (Acute) LeFort colpocleisis posterior perineorrhaphy cystoscopy at [facility] 09/05/2022 Shortness of breath (Acute) Pleural effusion on right (Acute) Medical History Actinic keratosis 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 Currently using a continence dish with knob. Persistent cystocele is present. [facility] and she has an in person visit with them at the end of June,. They recommended colpocleisis. Diabetes mellitus Diverticulosis Esophageal ulcer Essential hypertension Gastric ulcer Grade II internal hemorrhoids History of aspiration pneumonia Hypercholesterolemia Hypermetropia Left inguinal hernia Obesity Osteoarthritis Palliative care patient Squamous cell carcinoma of skin of left lower extremity 3.5cm LLE Syncope Synovial cyst of left popliteal space (09/01/16) Torn rotator cuff (06/23/13) Repair rotator cuff by Dr. Kadne Escobedo 06-23-2013 Surgical History Biopsy of breast (04/18/17) benign breast tissue with cyst wall Colonoscopy - IV Sedation 10 + years ago- normal Colonoscopy - MAC (12/31/17) EGD - MAC (12/31/17) ganglion, left ankle H/O inguinal hernia repair Nuclear senile cataract Oseotomy (10/06/98) TONNY BILATERAL FEET Rotator Cuff Repair (06/23/13) Right with distal clavical excision Status post Mohs surgery for squamous cell carcinoma of skin Family History Mother , 88 Diabetes Essential hypertension Heart disease Hyperlipidemia Father , 63 Neoplasm BLADDER Sister Hyperlipidemia Breast cancer Brother Diabetes Essential hypertension Hyperlipidemia Neoplasm PROSTATE Prostate cancer Maternal Grandfather No problems noted. Paternal Grandfather No problems noted. Maternal Grandmother Diabetes Paternal Grandmother No problems noted. 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 Pets and animals: Yes Pets and animals: dog(s) Sexually active: No Do you think of yourself as: straight/heterosexual Current gender identity: female What is your relationship status?: How often do you talk on the phone with friends or family?: three or more times per week How often do you get together with friends or relatives?: once per week How often do you attend temple or gnosticism services?: decline to answer Do you belong to any clubs or organized social groups?: no Panel score (0-1 are the most socially isolated patients): 1 What type of physical activity do you participate in: none Frequency: does not exercise Nhung/Denominational: No preference Special nhung needs: No Seatbelt use: always Drive intox or ride w/intox marine engine 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 Date GA/Weeks # Preg Succ Route Wgt Sex Labor Lgth Anesthesia Location Prov Complic 12/13/1955 40 No Yes vaginal Female 10/12/1959 40 No Yes vaginal Male Meds Allergies and Home Medications Allergies Allergy/AdvReac Type Severity Reaction Status Date / Time spironolactone AdvReac Intermediate Verified 09/23/22 09:39 red yeast rice Allergy rash Uncoded 09/23/22 09:39 Home Medications Medication Instructions Recorded Confirmed Type cholecalciferol (vitamin D3) 50 1,000 unit PO DAILY 09/01/16 09/23/22 History mcg (2,000 unit) capsule (Vitamin D3) calcium carb-vit [id number] 1 tab PO DAILY 01/05/22 09/23/22 History 333 mg-200 unit-133 mg-5 mg tablet calcium carbonate 600 mg calcium 600 mg PO DAILY 01/05/22 09/23/22 History (1,500 mg) tablet (Calcium) magnesium gluconate 27.5 mg 27.5 mg PO BID 01/05/22 09/23/22 History magnesium (500 mg) tablet milk thistle 150 mg capsule 150 mg PO DAILY 01/05/22 09/23/22 History ursodiol 300 mg capsule 300 mg PO 03/24/22 09/19/22 History levetiracetam 1,000 mg tablet 1,000 mg PO BID #180 tabs 05/10/22 09/23/22 Rx benzonatate 100 mg capsule 100 mg PO TID PRN cough #30 caps 05/24/22 09/23/22 Rx albuterol sulfate 90 mcg/actuation 1 puff inhalation Q6H PRN #3 puffs 08/18/22 09/23/22 Rx aerosol inhaler (ProAir HFA) potassium chloride 10 mEq 10 meq PO DAILY #90 tabs 08/18/22 09/19/22 Rx tablet,extended release furosemide 20 mg tablet 20 mg PO DAILY 09/19/22 09/23/22 History potassium chloride 40 mEq/15 mL 40 meq (15 mL) PO BID 3 days #90 mL 09/22/22 09/23/22 Rx oral liquid Exam Narrative Exam Narrative: Lying on side in bed. Pleasant and conversant. Const General: no acute distress Orientation: alert HENMT Head: normal to inspection and atraumatic Face and sinus: normal facial exam and No dry mucous membranes Mouth: moist mucous membranes Eyes General: appearance normal, both eyes and all related structures Sclera: sclerae normal Neck Neck: normal visual inspection Resp Effort & Inspection: normal respiratory effort and able to speak in complete sentences Auscultation: diminished lung sounds on the right throughout and wheezes Cardio Jugular venous pressure: no JVD Rate: regular rate Rhythm: regular rhythm GI Palpation: soft, no guarding and nontender Skin General skin exam: no rashes or lesions noted Neuro General: patient alert, patient oriented x3 and no focal motor deficits Speech: speech normal Extrem General: edema and other (BLE compression stockings in place; loose. ) Psych Mental Status: mental status grossly normal Affect: normal affect Results Labs 09/23/22 09:50 09/23/22 11:30 Labs: Laboratory Results - last 24 hr 09/23/22 09/23/22 09/23/22 09:50 09:50 09:50 WBC RBC Hgb Hct MCV MCH MCHC RDW Plt Count MPV Immature Gran % Neutrophils % Lymphocytes % Monocytes % Eosinophils % Basophils % Nucleated RBC % Absolute Neutrophils Absolute Lymphocytes Absolute Monocytes Absolute Eosinophils Absolute Basophils PT INR APTT Sodium Cancelled Potassium Cancelled Chloride Cancelled Carbon Dioxide Cancelled Anion Gap Cancelled BUN Cancelled Creatinine Cancelled Est GFR (CKD-EPI 2020) Cancelled Glucose Cancelled Calcium Cancelled Magnesium Cancelled Total Bilirubin Cancelled AST Cancelled ALT Cancelled Alkaline Phosphatase Cancelled Troponin I Cancelled NT-Pro-B Natriuret Pep Cancelled Total Protein Cancelled Albumin Cancelled Procalcitonin Cancelled TSH Cancelled Urine Color Urine Clarity Urine pH Ur Specific [place] Urine Protein Urine Ketones Urine Blood Urine Nitrite Urine Bilirubin Urine Urobilinogen Ur Leukocyte Esterase Urine RBC Urine WBC Ur Epithelial Cells Urine Crystals Urine Bacteria Urine Casts Urine Mucus Ur Culture Indicated? Urine Glucose COVID-19 Source Nasopharynx SARS-CoV-2 (PCR) Negative Influenza Type A (PCR) Negative Influenza Type B (PCR) Negative RSV (PCR) Negative 09/23/22 09/23/22 09/23/22 09:50 09:50 11:00 WBC 8.43 RBC 3.88 L Hgb 12.2 Hct 36.2 MCV 93 MCH 31.4 MCHC 33.7 RDW 18.7 H Plt Count 155 MPV 12.0 H Immature Gran % 0.2 Neutrophils % 72.1 Lymphocytes % 14.0 Monocytes % 10.6 Eosinophils % 2.4 Basophils % 0.7 Nucleated RBC % 0.0 Absolute Neutrophils 6.08 Absolute Lymphocytes 1.18 L Absolute Monocytes 0.89 H Absolute Eosinophils 0.20 Absolute Basophils 0.06 PT 13.7 H INR 1.3 H APTT 27.5 Sodium Potassium Chloride Carbon Dioxide Anion Gap BUN Creatinine Est GFR (CKD-EPI 2020) Glucose Calcium Magnesium Total Bilirubin AST ALT Alkaline Phosphatase Troponin I NT-Pro-B Natriuret Pep Total Protein Albumin Procalcitonin TSH Urine Color Yellow Urine Clarity Clear Urine pH 7.0 Ur Specific [place] 1.015 Urine Protein Negative Urine Ketones 15 H Urine Blood Trace-intact H Urine Nitrite Negative Urine Bilirubin Small H Urine Urobilinogen 4.0 H Ur Leukocyte Esterase Trace H Urine RBC 3-5 H Urine WBC 5-10 Ur Epithelial Cells Few Urine Crystals Negative Urine Bacteria Rare Urine Casts 3-5 Hyaline Urine Mucus Negative Ur Culture Indicated? Yes Urine Glucose Negative COVID-19 Source SARS-CoV-2 (PCR) Influenza Type A (PCR) Influenza Type B (PCR) RSV (PCR) 09/23/22 09/23/22 09/23/22 11:30 11:30 14:05 WBC RBC Hgb Hct MCV MCH MCHC RDW Plt Count MPV Immature Gran % Neutrophils % Lymphocytes % Monocytes % Eosinophils % Basophils % Nucleated RBC % Absolute Neutrophils Absolute Lymphocytes Absolute Monocytes Absolute Eosinophils Absolute Basophils PT INR APTT Sodium 142 Potassium 3.7 D Chloride 105 Carbon Dioxide 32.1 H Anion Gap 4.9 BUN 17 Creatinine 0.8 Est GFR (CKD-EPI 2020) 72.16 Glucose 78 Calcium 8.8 Magnesium 1.9 Total Bilirubin 4.1 H AST 65 H ALT 45 Alkaline Phosphatase 183 H Troponin I < 50 < 50 NT-Pro-B Natriuret Pep 183 Total Protein 6.4 Albumin 2.1 L Procalcitonin 0.2 TSH 1.65 Urine Color Urine Clarity Urine pH Ur Specific [place] Urine Protein Urine Ketones Urine Blood Urine Nitrite Urine Bilirubin Urine Urobilinogen Ur Leukocyte Esterase Urine RBC Urine WBC Ur Epithelial Cells Urine Crystals Urine Bacteria Urine Casts Urine Mucus Ur Culture Indicated? Urine Glucose COVID-19 Source SARS-CoV-2 (PCR) Influenza Type A (PCR) Influenza Type B (PCR) RSV (PCR) Last Vital Signs Temp 36.7 C 09/23/22 15:24 Pulse 97 H 09/23/22 15:24 Resp 20 09/23/22 15:24 BP 118/75 09/23/22 15:24 Pulse Ox 97 09/23/22 15:24 Time Spent Time spent with Patient: 40-54 minutes Time was spent: preparing to see the patient(eg.review tests), obtaining and/or reviewing separately otained hiistory, ordering medications,tests, procedures, referring, communicating with other health healthcare corporate account director, indepentently interpreting results and counseling the patient
--- NOTE | 2022-09-23 18:18 | W.SURGCON ---
Date of service: 09/23/22 Time of Service: 18:18 Assessment and Plan Assessment and plan (1) Pleural effusion on right: Status: Acute Assessment and plan: I performed a limited ultrasound of the right chest, confirming a large right-sided pleural effusion. I discussed the risks and benefits of thoracentesis with Elina, and she provided informed consent. Next, we assisted Elina to a seated position. We used some pillows to support her and make sure that she was comfortable. Next, I was able to identify a place on her right back, along the mid scapular line around the level of the ninth interspace. I prepped and draped the area, and using real-time ultrasound guidance, I established a generous field block, and anesthetized the parietal pleura as well. Next, using an 8 Romanian thoracentesis needle, I gained access to the pleural space. I gently advanced catheter, and draining the pleural space with Vacutainer's. I drained 1400 mL of straw-colored pleural effusion. I withdrew the catheter using aspiration, and occluded the percutaneous site with a sterile Band-Aid. Elina tolerated the procedure just fine. Follow-up with a routine chest x-ray to ensure adequate drainage, no significant pneumothorax History of Present Illness History of Present Illness Chief Complaint: Shortness of breath Narrative: Elina is an 87-year-old woman with primary biliary cirrhosis. As a consequence of this, she has developed a right-sided pleural effusion. She has had ongoing dyspnea for several weeks, that has gotten worse over the past few days. Adjustments were made to her diuretics, but her symptoms continue to worsen. She came to the emergency department today, and underwent a CAT scan of the chest that demonstrated a large right-sided pleural effusion. I was consulted for therapeutic thoracentesis PFSH All Active Problems Primary osteoarthritis of left knee (Acute) Injection: 08/14/22; 05/15/2022; [place]19/20[place] [place] Primary biliary cholangitis (Chronic) followed by GI [facility], associated with chronically elevated transaminases Cirrhosis (Acute) 2.2021-secondary to the primary biliary cholangitis, followed by GI at [facility] EGD with small varices in 10/2021. Pt unable to tolerate propranolol. 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 Documented by EGD at [facility] 2021 Compression fracture of lumbar vertebra (Acute) Fe deficiency anemia (Acute) History of iron deficiency anemia. She has seen hematology and thought it was due to a mixed etiology Emphysema lung (Acute) Seizure disorder (Chronic) Protein-calorie malnutrition, moderate (Acute) Osteoporosis (Chronic) Elevated INR (Acute) Due to chronic liver disease from PBC/PBS Lymphedema (Acute) Gallstones (Acute) RUQ pain & diarrhea Essential tremor (Acute) Primary osteoarthritis of right knee (Acute) Injection: 08/14/22; 05/15/2022; 01/19/2022 ([facility] History of colpocleisis (Acute) LeFort colpocleisis posterior perineorrhaphy cystoscopy at [facility] 09/05/2022 Shortness of breath (Acute) Pleural effusion on right (Acute) Medical History Actinic keratosis Allergy to hymenoptera venom (12/13/17) Asthma Carcinoma of left breast Invasive intraductal, on arimedex, followed by Oncology Chronic pruritus Cortical age-related cataract of both eyes (12/19/16) Cystocele and rectocele with incomplete uterovaginal prolapse Fitted with #3 Gelhorn pessary Sept 2021; pending eval at [facility] for poss surgery. Currently using a continence dish with knob. Persistent cystocele is present. Consultation with [facility] has been undertaken and she has an in person visit with them at the end of June,. They recommended colpocleisis. Diabetes mellitus Diverticulosis Esophageal ulcer Essential hypertension Gastric ulcer Grade II internal hemorrhoids History of aspiration pneumonia Hypercholesterolemia Hypermetropia Left inguinal hernia Obesity Osteoarthritis Palliative care patient Squamous cell carcinoma of skin of left lower extremity 3.5cm LLE Syncope Synovial cyst of left popliteal space (09/01/16) Torn rotator cuff (06/23/13) Repair rotator cuff by Dr. Kaden Escobedo 06-23-2013 Surgical History Biopsy of breast (04/18/17) benign breast tissue with cyst wall Colonoscopy - IV Sedation 10 + years ago- normal Colonoscopy - MAC (12/31/17) EGD - MAC (12/31/17) ganglion, left ankle H/O inguinal hernia repair Nuclear senile cataract Oseotomy (10/06/98) TONNY BILATERAL FEET Rotator Cuff Repair (06/23/13) Right with distal clavical excision Status post Mohs surgery for squamous cell carcinoma of skin Family History Mother , 88 Diabetes Essential hypertension Heart disease Hyperlipidemia Father , 63 Neoplasm BLADDER Sister Hyperlipidemia Breast cancer Brother Diabetes Essential hypertension Hyperlipidemia Neoplasm PROSTATE Prostate cancer Maternal Grandfather No problems noted. Paternal Grandfather No problems noted. Maternal Grandmother Diabetes Paternal Grandmother No problems noted. 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 Pets and animals: Yes Pets and animals: dog(s) Sexually active: No Do you think of yourself as: straight/heterosexual Current gender identity: female What is your relationship status?: How often do you talk on the phone with friends or family?: three or more times per week How often do you get together with friends or relatives?: once per week How often do you attend scientology or evangelical services?: decline to answer Do you belong to any clubs or organized social groups?: no Panel score (0-1 are the most socially isolated patients): 1 What type of physical activity do you participate in: none Frequency: does not exercise Nhung/Sikh: No preference Special nhung needs: No Seatbelt use: always Drive intox or ride w/intox company 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 Date GA/Weeks # Preg Succ Route Wgt Sex Labor Lgth Anesthesia Location Prov Complic 12/13/1955 40 No Yes vaginal Female 10/12/1959 40 No Yes vaginal Male Exam Chest Chest: normal inspection of the chest Resp Effort & Inspection: no tracheal deviation and uses accessory muscles Auscultation: breath sounds absent on the right Results Last Vital Signs Temp 98.1 F 09/23/22 15:30 Pulse 97 H 09/23/22 15:30 Resp 20 09/23/22 15:30 BP 118/75 09/23/22 15:30 Pulse Ox 97 09/23/22 15:30 Labs 09/23/22 09:50 09/23/22 11:30 Labs: Laboratory Results - last 24 hr 09/23/22 09/23/22 09/23/22 09:50 09:50 09:50 WBC RBC Hgb Hct MCV MCH MCHC RDW Plt Count MPV Immature Gran % Neutrophils % Lymphocytes % Monocytes % Eosinophils % Basophils % Nucleated RBC % Absolute Neutrophils Absolute Lymphocytes Absolute Monocytes Absolute Eosinophils Absolute Basophils PT INR APTT Sodium Cancelled Potassium Cancelled Chloride Cancelled Carbon Dioxide Cancelled Anion Gap Cancelled BUN Cancelled Creatinine Cancelled Est GFR (CKD-EPI 2020) Cancelled Glucose Cancelled Calcium Cancelled Magnesium Cancelled Total Bilirubin Cancelled AST Cancelled ALT Cancelled Alkaline Phosphatase Cancelled Troponin I Cancelled NT-Pro-B Natriuret Pep Cancelled Total Protein Cancelled Albumin Cancelled Procalcitonin Cancelled TSH Cancelled Urine Color Urine Clarity Urine pH Ur Specific [place] Urine Protein Urine Ketones Urine Blood Urine Nitrite Urine Bilirubin Urine Urobilinogen Ur Leukocyte Esterase Urine RBC Urine WBC Ur Epithelial Cells Urine Crystals Urine Bacteria Urine Casts Urine Mucus Ur Culture Indicated? Urine Glucose COVID-19 Source Nasopharynx SARS-CoV-2 (PCR) Negative Influenza Type A (PCR) Negative Influenza Type B (PCR) Negative RSV (PCR) Negative 09/23/22 09/23/22 09/23/22 09:50 09:50 11:00 WBC 8.43 RBC 3.88 L Hgb 12.2 Hct 36.2 MCV 93 MCH 31.4 MCHC 33.7 RDW 18.7 H Plt Count 155 MPV 12.0 H Immature Gran % 0.2 Neutrophils % 72.1 Lymphocytes % 14.0 Monocytes % 10.6 Eosinophils % 2.4 Basophils % 0.7 Nucleated RBC % 0.0 Absolute Neutrophils 6.08 Absolute Lymphocytes 1.18 L Absolute Monocytes 0.89 H Absolute Eosinophils 0.20 Absolute Basophils 0.06 PT 13.7 H INR 1.3 H APTT 27.5 Sodium Potassium Chloride Carbon Dioxide Anion Gap BUN Creatinine Est GFR (CKD-EPI 2020) Glucose Calcium Magnesium Total Bilirubin AST ALT Alkaline Phosphatase Troponin I NT-Pro-B Natriuret Pep Total Protein Albumin Procalcitonin TSH Urine Color Yellow Urine Clarity Clear Urine pH 7.0 Ur Specific [place] 1.015 Urine Protein Negative Urine Ketones 15 H Urine Blood Trace-intact H Urine Nitrite Negative Urine Bilirubin Small H Urine Urobilinogen 4.0 H Ur Leukocyte Esterase Trace H Urine RBC 3-5 H Urine WBC 5-10 Ur Epithelial Cells Few Urine Crystals Negative Urine Bacteria Rare Urine Casts 3-5 Hyaline Urine Mucus Negative Ur Culture Indicated? Yes Urine Glucose Negative COVID-19 Source SARS-CoV-2 (PCR) Influenza Type A (PCR) Influenza Type B (PCR) RSV (PCR) 09/23/22 09/23/22 09/23/22 11:30 11:30 14:05 WBC RBC Hgb Hct MCV MCH MCHC RDW Plt Count MPV Immature Gran % Neutrophils % Lymphocytes % Monocytes % Eosinophils % Basophils % Nucleated RBC % Absolute Neutrophils Absolute Lymphocytes Absolute Monocytes Absolute Eosinophils Absolute Basophils PT INR APTT Sodium 142 Potassium 3.7 D Chloride 105 Carbon Dioxide 32.1 H Anion Gap 4.9 BUN 17 Creatinine 0.8 Est GFR (CKD-EPI 2020) 72.16 Glucose 78 Calcium 8.8 Magnesium 1.9 Total Bilirubin 4.1 H AST 65 H ALT 45 Alkaline Phosphatase 183 H Troponin I < 50 < 50 NT-Pro-B Natriuret Pep 183 Total Protein 6.4 Albumin 2.1 L Procalcitonin 0.2 TSH 1.65 Urine Color Urine Clarity Urine pH Ur Specific [place] Urine Protein Urine Ketones Urine Blood Urine Nitrite Urine Bilirubin Urine Urobilinogen Ur Leukocyte Esterase Urine RBC Urine WBC Ur Epithelial Cells Urine Crystals Urine Bacteria Urine Casts Urine Mucus Ur Culture Indicated? Urine Glucose COVID-19 Source SARS-CoV-2 (PCR) Influenza Type A (PCR) Influenza Type B (PCR) RSV (PCR)
--- NOTE | 2022-09-23 19:48 | DI.VRAD_ITS ---
PROCEDURE INFORMATION: Exam: XR Chest Exam date and time: 09/23/2022 7:05 PM Age: 87 years old Clinical indication: Screening exam; Other screening; Patient HX: S/P thoracentesis TECHNIQUE: Imaging protocol: Radiologic exam of the chest. Views: 1 view. COMPARISON: CT CHEST PE CTA 09/23/2022 10:48 AM FINDINGS: Lungs: There is stable mild diffuse pulmonary vascular and interstitial prominence. No cem pulmonary consolidation. Pleural spaces: Unremarkable. No pleural effusion. No pneumothorax. Heart/Mediastinum: Unremarkable. No cardiomegaly. Bones/joints: Moderate degenerative changes noted throughout the cervical spine and both shoulders. IMPRESSION: Mild diffuse pulmonary vascular and interstitial prominence, similar to previous Dictated and Authenticated by: Giorgio Brock MD. Ordering:PACO Carbajal MD
[2022-09-23] MEDS: levETIRAcetam 500 MG TAB 1000 MG PO (20:25)
[2022-09-23] MEDS: Acetaminophen 325 MG TAB PO (20:26)
[2022-09-23] MEDS: Potassium Chloride Liquid 20 MEQ PKT 40 MEQ PO (20:27)
[2022-09-23] MEDS: Ursodiol 300 MG CAP PO (20:53)
[2022-09-24 06:06] VITALS: O2SAT 97
[2022-09-24 06:46] LABS: Abs Immature Grans 0.03 10^3/uL (0.0-0.06); Absolute Lymphocyte Count 1.53 10^3/uL (1.2-3.4); Absolute Monocyte Count 0.95 10^3/uL (0.1-0.8); Absolute Neutrophil Count 5.91 10^3/uL (1.2-6.7); Basophils % 1.1; Eosinophils % 4.5; HCT 33.8 % (36.0-46.0); HGB 11.4 g/dL (11.2-15.7); Immature Grans % 0.3; Lymphocytes % 17.2; MCH 31.8 pg (27.0-33.0); MCHC 33.7 % (32.0-36.0); MCV 94 fL (80-95); MPV 12.5 fL (8.0-11.0); Monocytes % 10.7; Neutrophils % 66.2; Platelet Count 118 10^3/uL (130-400); RBC 3.59 10^6/uL (3.93-5.22); RDW 18.5 % (11.7-14.6); RDW-SD 63.7 fL; WBC 8.92 10^3/uL (4.4-10.8)
[2022-09-24 07:20] VITALS: BP 110/69; PULSE 87; RESP 18; TEMP 36.2; O2SAT 95
[2022-09-24 07:23] LABS: ALT 43 U/L (14-59); AST 60 U/L (15-37); Albumin 1.8 g/dL (3.4-5.0); Alkaline Phosphatase 171 U/L (46-116); Anion Gap 4.4 mmol/L (3-11); BUN 19 mg/dL (7-18); Bilirubin, Total 3.2 mg/dL (0.2-1.0); CO2 34.6 mmol/L (21.0-32.0); CREATININE 0.8 mg/dL (0.55-1.02); Calcium 8.4 mg/dL (8.5-10.1); Chloride 105 mmol/L (98-107); Estimated GFR 72.16 (mL/min/1.73m2); Glucose 77 mg/dL (74-106); Magnesium 1.8 mg/dL (1.8-2.4); Potassium 3.8 mmol/L (3.5-5.1); Sodium 144 mmol/L (136-145); Total Protein 5.5 g/dL (6.4-8.2)
[2022-09-24] MEDS: Potassium Chloride Liquid 20 MEQ PKT 40 MEQ PO ×3 (08:41→20:30)
[2022-09-24] MEDS: Furosemide 40 MG/4 ML VIAL IVP ×2 (08:41→16:19)
[2022-09-24] MEDS: levETIRAcetam 500 MG TAB 1000 MG PO ×2 (08:42→20:30)
[2022-09-24] MEDS: Calcium Carbonate 1.5 GM TAB PO (08:42)
[2022-09-24] MEDS: Normal Saline Flush 10 ML SYR IVP ×3 (08:42→20:31)
[2022-09-24] MEDS: Magnesium Gluconate 500 MG TAB PO ×2 (08:42→20:30)
[2022-09-24] MEDS: Cholecalciferol (Vitamin D3) 1,000 UNIT TAB 1000 UNITS PO (08:42)
--- NOTE | 2022-09-24 08:42 | PDOC.CMIN ---
- If Service Date Differs Date of service: 09/24/22 Time of Service: 08:42 Care Management Initial Assess REASON FOR HOSPITALIZATION:: Biliary cholangitis PAST MEDICAL HISTORY/PAST SURGICAL HISTORY:: All Active Problems . Primary osteoarthritis of left knee (Acute). Injection: 08/14/22; 05/15/2022; [place]19/[place] [place] Primary biliary cholangitis (Chronic). followed by GI [facility], associated with chronically elevated transaminases. Cirrhosis (Acute). 2.2021-secondary to the primary biliary cholangitis, followed by GI at [facility]. EGD with small varices in 10/2021. Pt unable to tolerate propranolol. Elevated bilirubin (Acute). Chronic due to primary biliary cholangitis. Elevated LFTs (Acute). Chronic due to primary biliary cholangitis. Portal hypertension with esophageal varices (Acute). Grade 1. Documented by EGD at [facility] [place]. Compression fracture of lumbar vertebra (Acute). Fe deficiency anemia (Acute). History of iron deficiency anemia. She has seen hematology and thought it was due to a mixed etiology. Emphysema lung (Acute). Seizure disorder (Chronic). Protein-calorie malnutrition, moderate (Acute). Osteoporosis (Chronic). Elevated INR (Acute). Due to chronic liver disease from PBC/PBS. Lymphedema (Acute). Gallstones (Acute). RUQ pain & diarrhea. Essential tremor (Acute). Primary osteoarthritis of right knee (Acute). Injection: 08/14/22; 05/15/2022; 01/19/2022 ([facility] History of colpocleisis (Acute). LeFort colpocleisis posterior perineorrhaphy cystoscopy at [facility] 09/05/2022. Shortness of breath (Acute). Pleural effusion on right (Acute). Medical History . Actinic keratosis. 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 Asthma. Carcinoma of left breast. Invasive intraductal, on arimedex, followed by Oncology. Chronic pruritus. Cortical age-related cataract of both eyes (12/19/16). Cystocele and rectocele with incomplete uterovaginal prolapse. Fitted with #3 Gelhorn pessary Sept 2021; pending eval at [facility] for poss surgery. Currently using a continence dish with knob. Persistent cystocele is present. [facility] and she has an in person visit with them at the end of June,. They recommended colpocleisis. Diabetes mellitus. Diverticulosis. Esophageal ulcer. Essential hypertension. Gastric ulcer. Grade II internal hemorrhoids. History of aspiration pneumonia. Hypercholesterolemia. Hypermetropia. Left inguinal hernia. Obesity. Osteoarthritis. Palliative care patient. Squamous cell carcinoma of skin of left lower extremity. 3.5cm LLE. Syncope. Synovial cyst of left popliteal space (09/01/16). Torn rotator cuff (06/23/13). Repair rotator cuff by Dr. Kaden Escobedo 06-23-2013. Surgical History . Biopsy of breast (04/18/17). benign breast tissue with cyst wall. Colonoscopy - IV Sedation. 10 + years ago- normal. Colonoscopy - MAC (12/31/17). EGD - MAC (12/31/17). ganglion, left ankle. H/O inguinal hernia repair. Nuclear senile cataract. Oseotomy (10/06/98). TONNY BILATERAL FEET. Rotator Cuff Repair (06/23/13). Right with distal clavical excision. Status post Mohs surgery for squamous cell carcinoma of skin PREVIOUS FUNCTIONAL STATUS/SOCIAL/FAMILY SUPPORTS:: Byron lives alone in a single family home in [place]. She has 2 adult children, who are both local and supportive. She also has 3 grandchildren who are also helpful. Her Daughter Yaneli Crockett lives next door and her Son Chon Duarte lives 5 miles away. Byron reports that she is independent with her ADL's at baseline and drives. 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 She had surgery in August and is unable to climb stairs. She recently began receiving alf services form [facility]. Byron uses a cane occasionally. CURRENT FUNCTIONAL STATUS:: Byron was semi-reclining in her chair when met with her. She was cordial and agreeable to conversation. Byron was admitted with respiratory failure secondary to a large pleural effusion which was drained by surgery this morning. About 1400 cc was removed during the thoracentesis. Byron reported feeling much better. She anticipateds being discharged toomorrow. ADVANCE DIRECTIVES:: [facility] form identifies Chon Duarte as healthcare agent Has patient been provided with info about the portal/API?: Yes Did the patient sign up for the portal?: Yes (previously) CODE STATUS:: Full Code INSURANCE COVERAGE / FINANCIAL ISSUES:: Medicare. Financial assist 100 CURRENT HOME/COMMUNITY SERVICES/EQUIPMENT:: uses a cane occasionally PRIMARY CARE PHYSICIAN:: Brock Blankenship POTENTIAL DISCHARGE NEEDS:: follow up with PCP, surgeon and plan of care PATIENT/FAMILY EDUCATION NEEDS:: Review discharge instructions including activity, limitations, diet, medications, follow up plan and discuss Ask Me Three TRANSPORTATION:: via private vehicle with family PLAN:: Anticipate Byron will be discharged home with no new services. She will follow up with her community providers and plan of care and transport with family. CM will follow and assess for discharge concerns.
[2022-09-24] MEDS: Ursodiol 300 MG CAP PO ×3 (08:59→20:30)
[2022-09-24 10:11] LABS: POTASSIUM,URINE RANDOM 32 mmol/L; Sodium, Urine 31 mmol/L
--- NOTE | 2022-09-24 10:40 | PGE_ITS ---
Date of Service Date of service: 09/24/22 Time of Service: 10:40 Assessment and Plan Assessment and plan (1) Primary biliary cholangitis: Status: Chronic Assessment and plan: With cirrhosis, portal hypertension and esophogeal varices. 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 s/p right thoracentesis w/ 1400 mL fluid removed continue iv lasix; I recommend she add spironolactone to her regimen, but she refuses. continue potassium addition; K level is 3.8 today. I have increased her dose to 40 meq tid d/t her need for iv lasix. will continue iv lasix for another day and if adequate diuresis then will dc home in the a.m. on increased dosing. Professional time spent interviewing and examining patient, discussion of goals of care with hospital team (care management, nursing and consulting professionals) was 30 minutes. (2) Cirrhosis: Status: Acute Assessment and plan: As above. Cont ursodiol. (3) Asthma: Assessment and plan: Cont prn albuterol nebs. no wheezing noted today. (4) Seizure disorder: Status: Chronic Assessment and plan: Cont levetiracetam 1,000mg BID (5) Protein-calorie malnutrition, moderate: Status: Acute Assessment and plan: Likely secondary to her cirrhosis. Offer supplemental protein will give albumin infusions which may help w/ the iv lasix.. (6) Lymphedema: Status: Acute Assessment and plan: BLE wraps to be applied daily. (7) History of colpocleisis: Status: Acute Assessment and plan: 09/05/2022 underwent a LeFort colpocleisis with colpoperineorrhaphy with cystoscopy at [facility] on 09/05/2022.? (8) Pleural effusion on right: Status: Acute Assessment and plan: As above. Stable on 2L supplemental O2. Gen Surg consulted and performed thoracentisis yesterday. 1400 mL removed. no pleural fluid studies were sent to the lab (9) Essential hypertension: Assessment and plan: Controlled on no antihypertensive meds. Monitor. Subjective Subjective Interval history since last seen: Patient complaining of itching, burning sensation in eyes, L>R; she previously had an eye ointment prescribed while she was at [facility] for her LeFort colpocl eisis. She is adamant against taking any spironolactone for her ascites/anasarca. She says that in the past although it worked at great in controlling her leg edema, it totally wiped her out. She was unsure as to the dose she took and did not try going on a reduced schedule. She is asking how long she will need to be on higher dose lasix. I told she needs to remain on a dose that controls her edema and weight. Her breathing is better since her thoracentesis. She is now off oxygen. Exam Narrative Exam Narrative: Alert, oriented x 3; she is sitting up in her chair, talking w/ her daughter Lungs: right base still w/ decr. breath sounds but now able to hear improved air movement in the right mid and upper lung coe Heart: regular w/ occasional extra systolic beats Abdomen: ascites, soft, nontender, not tense Legs: 2+ to 3+ bilateral pitting edema Objective Last Vital Signs Temp 36.2 C L 09/24/22 07:20 Pulse 87 09/24/22 07:20 Resp 18 09/24/22 07:20 BP 110/69 09/24/22 07:20 Pulse Ox 95 09/24/22 07:20 Laboratory Results - last 24 hr 09/23/22 09/23/22 09/23/22 09:50 11:00 11:30 WBC RBC Hgb Hct MCV MCH MCHC RDW Plt Count MPV Immature Gran % Neutrophils % Lymphocytes % Monocytes % Eosinophils % Basophils % Nucleated RBC % Absolute Neutrophils Absolute Lymphocytes Absolute Monocytes Absolute Eosinophils Absolute Basophils Sodium 142 Potassium 3.7 D Chloride 105 Carbon Dioxide 32.1 H Anion Gap 4.9 BUN 17 Creatinine 0.8 Est GFR (CKD-EPI 2020) 72.16 Glucose 78 Calcium 8.8 Magnesium 1.9 Total Bilirubin 4.1 H AST 65 H ALT 45 Alkaline Phosphatase 183 H Troponin I < 50 NT-Pro-B Natriuret Pep 183 Total Protein 6.4 Albumin 2.1 L Procalcitonin TSH 1.65 Urine Color Yellow Urine Clarity Clear Urine pH 7.0 Ur Specific [place] 1.015 Urine Protein Negative Urine Ketones 15 H Urine Blood Trace-intact H Urine Nitrite Negative Urine Bilirubin Small H Urine Urobilinogen 4.0 H Ur Leukocyte Esterase Trace H Urine RBC 3-5 H Urine WBC 5-10 Ur Epithelial Cells Few Urine Crystals Negative Urine Bacteria Rare Urine Casts 3-5 Hyaline Urine Mucus Negative Ur Culture Indicated? Yes Ur Random Sodium Ur Random Potassium Urine Glucose Negative COVID-19 Source Nasopharynx SARS-CoV-2 (PCR) Negative Influenza Type A (PCR) Negative Influenza Type B (PCR) Negative RSV (PCR) Negative 09/23/22 09/23/22 09/24/22 11:30 14:05 06:10 WBC RBC Hgb Hct MCV MCH MCHC RDW Plt Count MPV Immature Gran % Neutrophils % Lymphocytes % Monocytes % Eosinophils % Basophils % Nucleated RBC % Absolute Neutrophils Absolute Lymphocytes Absolute Monocytes Absolute Eosinophils Absolute Basophils Sodium 144 Potassium 3.8 Chloride 105 Carbon Dioxide 34.6 H Anion Gap 4.4 BUN 19 H Creatinine 0.8 Est GFR (CKD-EPI 2020) 72.16 Glucose 77 Calcium 8.4 L Magnesium 1.8 Total Bilirubin 3.2 H AST 60 H ALT 43 Alkaline Phosphatase 171 H Troponin I < 50 NT-Pro-B Natriuret Pep Total Protein 5.5 L Albumin 1.8 L Procalcitonin 0.2 TSH Urine Color Urine Clarity Urine pH Ur Specific [place] Urine Protein Urine Ketones Urine Blood Urine Nitrite Urine Bilirubin Urine Urobilinogen Ur Leukocyte Esterase Urine RBC Urine WBC Ur Epithelial Cells Urine Crystals Urine Bacteria Urine Casts Urine Mucus Ur Culture Indicated? Ur Random Sodium Ur Random Potassium Urine Glucose COVID-19 Source SARS-CoV-2 (PCR) Influenza Type A (PCR) Influenza Type B (PCR) RSV (PCR) 09/24/22 09/24/22 06:10 08:40 WBC 8.92 RBC 3.59 L Hgb 11.4 Hct 33.8 L MCV 94 MCH 31.8 MCHC 33.7 RDW 18.5 H Plt Count 118 L MPV 12.5 H Immature Gran % 0.3 Neutrophils % 66.2 Lymphocytes % 17.2 Monocytes % 10.7 Eosinophils % 4.5 Basophils % 1.1 Nucleated RBC % 0.0 Absolute Neutrophils 5.91 Absolute Lymphocytes 1.53 Absolute Monocytes 0.95 H Absolute Eosinophils 0.40 Absolute Basophils 0.10 Sodium Potassium Chloride Carbon Dioxide Anion Gap BUN Creatinine Est GFR (CKD-EPI 2020) Glucose Calcium Magnesium Total Bilirubin AST ALT Alkaline Phosphatase Troponin I NT-Pro-B Natriuret Pep Total Protein Albumin Procalcitonin TSH Urine Color Urine Clarity Urine pH Ur Specific [place] Urine Protein Urine Ketones Urine Blood Urine Nitrite Urine Bilirubin Urine Urobilinogen Ur Leukocyte Esterase Urine RBC Urine WBC Ur Epithelial Cells Urine Crystals Urine Bacteria Urine Casts Urine Mucus Ur Culture Indicated? Ur Random Sodium 31 Ur Random Potassium 32 Urine Glucose COVID-19 Source SARS-CoV-2 (PCR) Influenza Type A (PCR) Influenza Type B (PCR) RSV (PCR) Time Spent with Patient Time Spent with Patient: 25-34 minutes Time was spent: preparing to see the patient(eg.review tests), ordering medications,tests, procedures, indepentently interpreting results, counseling the patient and care coordination
[2022-09-24] MEDS: Ciprofloxacin 0.3% 2.5 ML BTL OU ×5 (12:04→23:01)
[2022-09-24] MEDS: metOLazone 2.5 MG TAB PO (12:05)
[2022-09-24] MEDS: ALBUMIN HUMAN 25 GM/100 ML BTL IV ×2 (12:06→20:30)
[2022-09-24 15:01] VITALS: BP 114/68; PULSE 82; RESP 20; TEMP 36.6; O2SAT 96
[2022-09-24 23:10] VITALS: BP 107/62; PULSE 90; RESP 16; TEMP 36.6; O2SAT 92
[2022-09-25 02:06] VITALS: O2SAT 98
[2022-09-25] MEDS: Ciprofloxacin 0.3% 2.5 ML BTL OU ×9 (02:07→20:26)
[2022-09-25] MEDS: ALBUMIN HUMAN 25 GM/100 ML BTL IV (03:31)
[2022-09-25] MEDS: Normal Saline Flush 10 ML SYR IVP ×2 (03:32→20:25)
[2022-09-25 06:20] LABS: Abs Immature Grans 0.03 10^3/uL (0.0-0.06); Absolute Basophil Count 0.07 10^3/uL (0.0-0.2); Absolute Eosinophil Count 0.26 10^3/uL (0.0-0.7); Absolute Lymphocyte Count 1.35 10^3/uL (1.2-3.4); Absolute Monocyte Count 0.83 10^3/uL (0.1-0.8); Absolute Neutrophil Count 5.21 10^3/uL (1.2-6.7); Basophils % 0.9; Eosinophils % 3.4; HCT 31.1 % (36.0-46.0); HGB 10.7 g/dL (11.2-15.7); Immature Grans % 0.4; Lymphocytes % 17.4; MCH 32.1 pg (27.0-33.0); MCHC 34.4 % (32.0-36.0); MCV 93 fL (80-95); MPV 12.4 fL (8.0-11.0); Monocytes % 10.7; Neutrophils % 67.2; Platelet Count 109 10^3/uL (130-400); RBC 3.33 10^6/uL (3.93-5.22); RDW 17.5 % (11.7-14.6); RDW-SD 60.2 fL; WBC 7.75 10^3/uL (4.4-10.8)
[2022-09-25 06:46] LABS: ALT 39 U/L (14-59); AST 60 U/L (15-37); Albumin 3.2 g/dL (3.4-5.0); Alkaline Phosphatase 161 U/L (46-116); Anion Gap 6.9 mmol/L (3-11); BUN 19 mg/dL (7-18); Bilirubin, Total 3.1 mg/dL (0.2-1.0); CO2 36.1 mmol/L (21.0-32.0); CREATININE 0.9 mg/dL (0.55-1.02); Chloride 100 mmol/L (98-107); Estimated GFR 62.65 (mL/min/1.73m2); Glucose 91 mg/dL (74-106); Sodium 143 mmol/L (136-145); Total Protein 6.3 g/dL (6.4-8.2)
[2022-09-25 06:49] LABS: Potassium 2.7 mmol/L (3.5-5.1)
[2022-09-25 07:57] LABS: Lab Add On Test DONE
--- NOTE | 2022-09-25 07:57 | PCNE_ITS ---
Date of service: 09/25/22 Time of Service: 07:58 History of Present Illness History of Present Illness Chief Complaint: Cirrhosis Narrative: I met briefly with Gurinder today. She said she has been down this road 3 times. She is tired. Her main goal is to go home. She has filled out her POLST form, and stated that she would want to be r esuscitated 2 times and if it did not work to let her . She is uncertain what she wants at this time. She is willing to have a family meeting. From H and P: istory of Present Illness?Chief Complaint: Shortness of breath?Narrative: This is an 87 yo female with a PMH of primary biliary cholangitis, asthma, seizure disorder, breast cancer, DM2, HLD,HTN, essential tremor, protein-tyrel malnutrition.? She presented with her daughter secondary to progressive shortness of air over the last several months.? She also was noted to have a low K of 2.5 on 09/21/22.? She started oral K supplemention the day prior to presentation. She has had no CP/palpitations.? No F/C.? She did have a covid exposure at some point in time in the previous week.? In the ED her initial RA O2 saturation was 89%.? Wheezes were noted.? Fluvid was negative. WBC count 8.43.? Hgb 12.2. Na 142. K 3.7. BUN 17. Creatinine 0.8. Total bilirubin 4.1. AST 65. Alt 45. AP 183. GGT 57. UA with tr leuk est, 5-10 WBCs, few epis, rare bacteria.? Cx pending. CT chest w/o thrombi. Cirrhosis with a large quantity of ascites and large right pleural effusion. She was stable respiratory-clifford on 2L supplemental O2. Interim Hx: I am meeting with Gurinder, her son Antonio, her daughter Yaneli. She states that today s he made a big change and is feeling much much better. She is anxious to go home. She feels she just needs to get a little stronger and then she will be able to do this. The purpose of our meeting is to discuss with Caroline where she is at at this point, her disease process, and her end-of-life wishes specifically whether she would want CPR. Gurinder really was not certain what CPR was. I did bring with me her advanced directive which stated that she would want CPR twice and if it did not work to s top. We discussed what CPR was, how often it was successful, what would be some of the pitfalls that would indicate it would be less successful, and some risks involved in CPR. Her son Antonio was very vocal that he has been down this road before with his mom and she is making her own decisions. Yaneli also states that she is able to make her own decisions and that is her choice when she does ? Assessment and Plan Assessment and plan (1) Primary biliary cholangitis: Status: Chronic (2) Cirrhosis: Status: Acute (3) Portal hypertension with esophageal varices: Status: Acute Assessment and plan: I spoke with Gurinder and she is willing to have a family meeting blake at 5 PM. At that time we can go over her current condition and what her choices are for the future. At that time I will specifically address her COLST form Evening meeting: Gurinder was clear that she did not want to live on a machine. She was not interested in chest compressions if they would result in broken ribs. She asked about CPR and what it was on a few occasions. It does not appear that she grasped the concept. She wants to live and feels that she has a good life. She thinks she is going to live for a long time even with her comorbidities. She expects to get stronger and to mow her lawn this summer Daughter Yaneli states that her mom can make her own decisions and she will abide with what ever Gurinder decides Son Antonio was frustrated with his mom and does not want to discuss it anymore with her. He understands very much what a DNR is, what CPR is, but still feels that his mother can make her own decisions . He feels that it is difficult to make these decisions for someone else. He had to make them for his father. I did explain that Gurinder would have CPR done with her present advanced directive. She would have to complete a COLST if she chose to be a DO NOT RESUSCITATE/allow natural . The plan was for her to think about things and when she met with her PCP Dr. Blankenship she would make a decision. Her son did not want to be involved in the decision. He said he has been down this road with his mom and is not going to discuss this further. Antonio is the DPOA who is mostly involved in her medical care. We did discuss some of the parameters she put in her advanced directive i.e. being put on a breathing machine for 2 weeks, feeding tube for 2 weeks, etc. etc. I talked to her about some of the risks and benefits of the different procedures. Again she will talk with Dr. Blankenship when she meets with her. She understands that she is on a tight rope as far as her diuresis, cirrhosis, etc. I hope she gets her wish to be able to mow her lawn this summer Thank you very much for this consult. I am happy to meet with Gurinder and her family again. Review of Systems Narrative: She is feeling better but still feels weak PFSH All Active Problems Hypomagnesemia (Acute) Medication monitoring encounter (Acute) Ascites controlled with medication (Acute) Discharge planning issues (Acute) Primary osteoarthritis of left knee (Acute) Injection: 08/14/22; 05/15/2022; 01/19/2022 ([facility] [place] [place]) Primary biliary cholangitis (Chronic) followed by GI [facility] [place] [place], associated with chronically elevated transaminases Cirrhosis (Acute) 2.2021-secondary to the primary biliary cholangitis, followed by GI at [facility] EGD with small varices in 10/2021. Pt unable to tolerate propranolol. 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 Documented by EGD at [facility] [place] [place] 2021 Compression fracture of lumbar vertebra (Acute) Fe deficiency anemia (Acute) History of iron deficiency anemia. She has seen hematology and thought it was due to a mixed etiology Emphysema lung (Acute) Seizure disorder (Chronic) Protein-calorie malnutrition, moderate (Acute) Osteoporosis (Chronic) Elevated INR (Acute) Due to chronic liver disease from PBC/PBS Lymphedema (Acute) Gallstones (Acute) RUQ pain & diarrhea Essential tremor (Acute) Primary osteoarthritis of right knee (Acute) Injection: 08/14/22; 05/15/2022; 01/19/2022 ([facility] [place] [place]) History of colpocleisis (Acute) LeFort colpocleisis posterior perineorrhaphy cystoscopy at [facility] 09/05/2022 Shortness of breath (Acute) Pleural effusion on right (Acute) Medical History Actinic keratosis Allergy to hymenoptera venom (12/13/17) Asthma Carcinoma of left breast Invasive intraductal, on arimedex, followed by Oncology Chronic pruritus Cortical age-related cataract of both eyes (12/19/16) Cystocele and rectocele with incomplete uterovaginal prolapse Fitted with #3 Gelhorn pessary Sept 2021; pending eval at [facility] [place] [place] for poss surgery. Currently using a continence dish with knob. Persistent cystocele is present. Consultation with [facility] has been undertaken and she has an in person visit with them at the end of June,. They recommended colpocleisis. Diabetes mellitus Diverticulosis Esophageal ulcer Essential hypertension Gastric ulcer Grade II internal hemorrhoids History of aspiration pneumonia Hypercholesterolemia Hypermetropia Left inguinal hernia Obesity Osteoarthritis Palliative care patient Squamous cell carcinoma of skin of left lower extremity 3.5cm LLE Syncope Synovial cyst of left popliteal space (09/01/16) Torn rotator cuff (06/23/13) Repair rotator cuff by Dr. Kaden Escobedo 06-23-2013 Surgical History Biopsy of breast (04/18/17) benign breast tissue with cyst wall Colonoscopy - IV Sedation 10 + years ago- normal Colonoscopy - MAC (12/31/17) EGD - MAC (12/31/17) ganglion, left ankle H/O inguinal hernia repair Nuclear senile cataract Oseotomy (10/06/98) TONNY BILATERAL FEET Rotator Cuff Repair (06/23/13) Right with distal clavical excision Status post Mohs surgery for squamous cell carcinoma of skin Family History Mother , 88 Diabetes Essential hypertension Heart disease Hyperlipidemia Father , 63 Neoplasm BLADDER Sister Hyperlipidemia Breast cancer Brother Diabetes Essential hypertension Hyperlipidemia Neoplasm PROSTATE Prostate cancer Maternal Grandfather No problems noted. Paternal Grandfather No problems noted. Maternal Grandmother Diabetes Paternal Grandmother No problems noted. 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 Pets and animals: Yes Pets and animals: dog(s) Sexually active: No Do you think of yourself as: straight/heterosexual Current gender identity: female What is your relationship status?: How often do you talk on the phone with friends or family?: three or more times per week How often do you get together with friends or relatives?: once per week How often do you attend denominational or faith services?: decline to answer Do you belong to any clubs or organized social groups?: no Panel score (0-1 are the most socially isolated patients): 1 What type of physical activity do you participate in: none Frequency: does not exercise Nhung/Latter-Day: No preference Special nhung needs: No Seatbelt use: always Drive intox or ride w/intox national van truck 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 Date GA/Weeks # Preg Succ Route Wgt Sex Labor Lgth Anesth esia Location [facility] 12/13/1953 40 No Yes vaginal Female 10/12/1957 40 No Yes vaginal Male Exam Narrative Exam Narrative: 87-year-old woman sitting on the edge of her bed. She is speaking in complete sentences. She is alert and oriented and has full capacity regarding the details of her hospitalization, recent hospitalizations and time in between. Her heart was regular. Lungs there were some crackles but had good air movement. Her abdomen was slightly full. Her legs still had significant edema but there was some wrinkles in her skin from recent diuresis. Results Last Vital Signs Temp 98 F 09/24/22 23:10 Pulse 90 09/24/22 23:10 Resp 16 09/24/22 23:10 BP 107/62 09/24/22 23:10 Pulse Ox 98 09/25/22 02:06 CT Chest IMPRESSION: 1. No evidence of obvious acute pulmonary emboli.? Large right pleural effusion with subjacent collapse of the right lower lobe.? No pleural effusion on the opposite-left side.? Mild haziness of the left lung noted. 2. Mild cardiomegaly.? No evidence of aortic dissection.? No pericardial effusion. 3. Prominent ascites and hepatic cirrhosis noted. Compression fractures T10 and T12 again noted, unchanged. Laboratory Tests 09/23/22 09/23/22 09/24/22 09:50 11:30 06:10 Plt Count INR 1.3 H Potassium Creatinine AST Alkaline Phosphatase Albumin 1.8 L TSH 1.65 09/25/22 09/25/22 05:55 05:55 Plt Count 109 L INR Potassium 2.7 L* D Creatinine 0.9 AST 60 H Alkaline Phosphatase 161 H Albumin 3.2 L TSH Labs 09/25/22 05:55 09/25/22 05:55 Labs: Laboratory Results - last 24 hr 09/24/22 09/25/22 09/25/22 08:40 05:55 05:55 WBC 7.75 RBC 3.33 L Hgb 10.7 L Hct 31.1 L MCV 93 MCH 32.1 MCHC 34.4 RDW 17.5 H Plt Count 109 L MPV 12.4 H Immature Gran % 0.4 Neutrophils % 67.2 Lymphocytes % 17.4 Monocytes % 10.7 Eosinophils % 3.4 Basophils % 0.9 Nucleated RBC % 0.0 Absolute Neutrophils 5.21 Absolute Lymphocytes 1.35 Absolute Monocytes 0.83 H Absolute Eosinophils 0.26 Absolute Basophils 0.07 Sodium 143 Potassium 2.7 L* D Chloride 100 Carbon Dioxide 36.1 H Anion Gap 6.9 BUN 19 H Creatinine 0.9 Est GFR (CKD-EPI 2020) 62.65 Glucose 91 Calcium 9.0 Total Bilirubin 3.1 H AST 60 H ALT 39 Alkaline Phosphatase 161 H Total Protein 6.3 L Albumin 3.2 L Ur Random Sodium 31 Ur Random Potassium 32 Add-On Test Request 09/25/22 05:55 WBC RBC Hgb Hct MCV MCH MCHC RDW Plt Count MPV Immature Gran % Neutrophils % Lymphocytes % Monocytes % Eosinophils % Basophils % Nucleated RBC % Absolute Neutrophils Absolute Lymphocytes Absolute Monocytes Absolute Eosinophils Absolute Basophils Sodium Potassium Chloride Carbon Dioxide Anion Gap BUN Creatinine Est GFR (CKD-EPI 2020) Glucose Calcium Total Bilirubin AST ALT Alkaline Phosphatase Total Protein Albumin Ur Random Sodium Ur Random Potassium Add-On Test Request DONE
[2022-09-25 08:00] VITALS: BP 107/52; PULSE 100; RESP 16; TEMP 36
[2022-09-25] MEDS: Cholecalciferol (Vitamin D3) 1,000 UNIT TAB 1000 UNITS PO (08:11)
[2022-09-25] MEDS: Calcium Carbonate 1.5 GM TAB PO (08:12)
[2022-09-25] MEDS: Ursodiol 300 MG CAP PO ×3 (08:13→20:25)
[2022-09-25] MEDS: POTASSIUM CHLORIDE 10 MEQ/100 ML BAG 100 MEQ IVPB ×3 (08:13→12:54)
[2022-09-25] MEDS: levETIRAcetam 500 MG TAB 1000 MG PO ×2 (08:24→20:25)
[2022-09-25] MEDS: Magnesium Gluconate 500 MG TAB PO ×2 (08:24→20:25)
[2022-09-25] MEDS: Acetaminophen 325 MG TAB PO (09:15)
[2022-09-25] MEDS: Potassium Chloride Liquid 20 MEQ PKT 40 MEQ PO ×2 (09:16→14:24)
--- NOTE | 2022-09-25 10:12 | PDOC.CMPRO ---
- If Service Date Differs Date of service: 09/25/22 Time of Service: 10:12 Care Management Progress Note S/O: Elina was lying in bed visiting with her daughter Yaneli when CM met with her. She is awake and easily engages in conversation. Elina met with Dr. Zazueta from Palliative care this morning and is planning on meeting with the provider again at 5pm with her family. Elina is hoping to discharge home tomorrow with resumption of [facility] RN services. Per pt, she lives alone and her daughter Yaneli lives next door. Per Yaneli, Elina has looked into getting a [facility] in the past, but has not been agreeable until now. CM provided Elina with a brochure and Yaneli is going to call the [employer] for pricing. CM will follow. A: 87 year old female admitted to [facility] on 09/23/22 Acute Hypoxic Respiratory Failure, Hydrothorax P: Anticipate, Elina will be discharged home with resumption of [facility] RN (add PT?). She will follow up with her community providers and plan of care and transport with family. CM will follow and assess for discharge concerns.
--- NOTE | 2022-09-25 11:02 | W.PM.PROGNOT ---
Date of Service Date of service: 09/25/22 Time of Service: 11:02 Assessment and Plan Assessment and plan (1) Primary biliary cholangitis: Status: Chronic Assessment and plan: With cirrhosis, portal hypertension and esophogeal varices. 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 s/p right thoracentesis w/ 1400 mL fluid removed 2 days ago. No fluid studies were sent. Upon discharge home we will restart her Lasix at 20 mg twice a day and consider addition of eplerenone. Potassium down to 2.7 currently receiving oral and IV replacement. Recheck levels this afternoon. Professional time spent interviewing and examining patient, discussion of goals of care with hospital team (care management, nursing and consulting professionals) was 30 minutes. (2) Cirrhosis: Status: Acute Assessment and plan: As above. Cont ursodiol. Patient reportedly scheduled to follow-up with her industrial engineering intern at [facility] in early November. (3) Asthma: Assessment and plan: Cont prn albuterol nebs. no wheezing noted today. (4) Seizure disorder: Status: Chronic Assessment and plan: Cont levetiracetam 1,000mg BID (5) Protein-calorie malnutrition, moderate: Status: Acute Assessment and plan: Likely secondary to her cirrhosis. Offer supplemental protein Patient received albumin infusions yesterday with her IV Lasix (6) Lymphedema: Status: Acute Assessment and plan: BLE wraps to be applied daily. (7) History of colpocleisis: Status: Acute Assessment and plan: 09/05/2022 underwent a LeFort colpocleisis with colpoperineorrhaphy with cystoscopy at [facility] on 09/05/2022.? (8) Pleural effusion on right: Status: Acute Assessment and plan: As above. SPO2 98% on room air Gen Surg consulted and performed thoracentisis yesterday. 1400 mL removed. no pleural fluid studies were sent to the lab (9) Essential hypertension: Assessment and plan: Controlled on no antihypertensive meds. Monitor. (10) Discharge planning issues: Status: Acute Assessment and plan: Plan for discharge home tomorrow morning with home health services including nursing and PT and [employer] Dr. Zazueta plans to return around 5 PM to discuss with patient and her family regarding completion of POLST form. At this time patient remains full code Subjective Subjective Interval history since last seen: Elina is feeling so much better. Leg edema has improved her breathing is improved. Yesterday she diuresed a net -3400 mL. Her overall cumulative balance is -5 L. Her weight is down to 53 kg from a peak of 61 kg. She is inquiring as to when she can go home. Plan for informed her that her potassium was very low this morning and required both IV and oral replacement. Potassium is down to 2.7. Magnesium was normal at 2.0. I will recheck a potassium level this afternoon and repeat her electrolytes again in the morning before discharge. I stopped her IV Lasix. We will need to settle on a dose of the furosemide she can take at home. When she was taking furosemide 40 mg twice a day she said she was dizzy and lightheaded and experiencing blurred vision. Exam Narrative Exam Narrative: Elina was seen walking the hallways for physical therapy using her walker with just standby assistance. Lungs are clear anteriorly posteriorly she has some fine rales at the right base no rhonchi or wheezing Heart is regular rate and rhythm Abdomen soft nontender but with still some ascites. Lower extremities 1+ pitting edema but much improved Objective Last Vital Signs Temp 36 C L 09/25/22 08:00 Pulse 100 H 09/25/22 08:00 Resp 16 09/25/22 08:00 BP 107/52 L 09/25/22 08:00 Pulse Ox 98 09/25/22 02:06 Laboratory Results - last 24 hr 09/25/22 09/25/22 09/25/22 05:55 05:55 05:55 WBC 7.75 RBC 3.33 L Hgb 10.7 L Hct 31.1 L MCV 93 MCH 32.1 MCHC 34.4 RDW 17.5 H Plt Count 109 L MPV 12.4 H Immature Gran % 0.4 Neutrophils % 67.2 Lymphocytes % 17.4 Monocytes % 10.7 Eosinophils % 3.4 Basophils % 0.9 Nucleated RBC % 0.0 Absolute Neutrophils 5.21 Absolute Lymphocytes 1.35 Absolute Monocytes 0.83 H Absolute Eosinophils 0.26 Absolute Basophils 0.07 Sodium 143 Potassium 2.7 L* D Chloride 100 Carbon Dioxide 36.1 H Anion Gap 6.9 BUN 19 H Creatinine 0.9 Est GFR (CKD-EPI 2020) 62.65 Glucose 91 Calcium 9.0 Magnesium Total Bilirubin 3.1 H AST 60 H ALT 39 Alkaline Phosphatase 161 H Total Protein 6.3 L Albumin 3.2 L Add-On Test Request DONE 09/25/22 05:55 WBC RBC Hgb Hct MCV MCH MCHC RDW Plt Count MPV Immature Gran % Neutrophils % Lymphocytes % Monocytes % Eosinophils % Basophils % Nucleated RBC % Absolute Neutrophils Absolute Lymphocytes Absolute Monocytes Absolute Eosinophils Absolute Basophils Sodium Potassium Chloride Carbon Dioxide Anion Gap BUN Creatinine Est GFR (CKD-EPI 2020) Glucose Calcium Magnesium 2.0 Total Bilirubin AST ALT Alkaline Phosphatase Total Protein Albumin Add-On Test Request Time Spent with Patient Time Spent with Patient: 25-34 minutes Time was spent: preparing to see the patient(eg.review tests), ordering medications,tests, procedures, referring, communicating with other health janitor caretaker (Discussion with Dr. Zazueta), indepentently interpreting results, counseling the patient (And patient's daughter) and care coordination
[2022-09-25 15:34] LABS: Potassium 4.8 mmol/L (3.5-5.1)
[2022-09-25 15:37] VITALS: BP 114/69; PULSE 76; RESP 16; TEMP 36.4; O2SAT 94
[2022-09-25 23:01] VITALS: BP 119/65; PULSE 85; RESP 15; TEMP 36.8; O2SAT 95
[2022-09-26 00:54] VITALS: O2SAT 95
[2022-09-26] MEDS: Ciprofloxacin 0.3% 2.5 ML BTL OU ×5 (04:18→12:09)
[2022-09-26 06:24] LABS: Anion Gap 5.5 mmol/L (3-11); BUN 16 mg/dL (7-18); CO2 33.5 mmol/L (21.0-32.0); CREATININE 0.6 mg/dL (0.55-1.02); Chloride 102 mmol/L (98-107); Estimated GFR 87.91 (mL/min/1.73m2); Glucose 98 mg/dL (74-106); Magnesium 1.7 mg/dL (1.8-2.4); Potassium 3.1 mmol/L (3.5-5.1); Sodium 141 mmol/L (136-145)
[2022-09-26 07:53] VITALS: BP 156/64; PULSE 89; RESP 20; TEMP 36.6
[2022-09-26 08:06] VITALS: BP 132/81; PULSE 97; RESP 16; TEMP 36.2; O2SAT 93
[2022-09-26] MEDS: Calcium Carbonate 1.5 GM TAB PO (08:14)
[2022-09-26] MEDS: Magnesium Gluconate 500 MG TAB PO (08:14)
[2022-09-26] MEDS: Ursodiol 300 MG CAP PO ×2 (08:14→16:00)
[2022-09-26] MEDS: Potassium Chloride Liquid 20 MEQ PKT 40 MEQ PO ×2 (08:14→16:00)
[2022-09-26] MEDS: Cholecalciferol (Vitamin D3) 1,000 UNIT TAB 1000 UNITS PO (08:14)
[2022-09-26] MEDS: levETIRAcetam 500 MG TAB 1000 MG PO (08:15)
[2022-09-26] MEDS: MAGNESIUM SULFATE 2 GM/50 ML BAG IVPB (08:17)
--- NOTE | 2022-09-26 09:14 | PDOC.CMPRO ---
- If Service Date Differs Date of service: 09/26/22 Time of Service: 09:14 Care Management Progress Note S/O: Per provider, Elina may discharge home later today if medically ready after repeat labs. PT eval is ordered prior to discharge. She will need resumption of [facility] RN, add PT/OT if indicated. CM will continue to follow. A: 87 year old female admitted to [facility] on 09/23/22 Acute Hypoxic Respiratory Failure, Hydrothorax P: Anticipate, Elina will be discharged home with resumption of [facility] RN (add PT?). She will follow up with her community providers and plan of care and transport with family. CM will follow and assess for discharge concerns.
[2022-09-26] MEDS: POTASSIUM CHLORIDE 10 MEQ/100 ML BAG 100 MEQ IVPB ×3 (10:21→13:29)
--- NOTE | 2022-09-26 12:06 | PT.INIE ---
Date of service: 09/26/22 Time of Service: 11:30 PT Notes Visit Reasons: Acute Hypoxic Respiratory Failure,Hydrothorax Physical Therapy Inpatient Initial Evaluation Date: 09/26/2022 Referring Doctor: Drew Apple MD PT Orders: PT CONSULT: Safety consult for D/C Precautions: Fall. Standard. Activity as tolerated. Patient Profile/Admitting Diagnosis: Gurinder is an 87-year-old female presented to the ED on 09/23/2022 with worsening shortness of breath and weakness that have been going on for months now. patient is admitted for management of primary billiary cholangitis, cirrhosis, asthma, seizure disorder, protein calorie malnutrition, lymphedema to B LE, pleural effusion R, and essential hypertension. PFSH: All Active Problems? Primary osteoarthritis of left knee (Acute) Injection: 08/14/22; 05/15/2022; [place] biliary cholangitis (Chronic) [place] [facility]? with chronically elevated transaminases Cirrhosis (Acute) 2.2021-secondary to the primary biliary cholangitis, followed by GI at [facility] EGD with small varices in 10/2021.? Pt unable to tolerate propranolol. 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 Documented [place] [facility] [place] Compression fracture of lumbar vertebra (Acute) Fe deficiency anemia (Acute) History of iron deficiency anemia.? She has seen hematology and thought it was due to a mixed etiology Emphysema lung (Acute) Seizure disorder (Chronic) Protein-calorie malnutrition, moderate (Acute) Osteoporosis (Chronic) Elevated INR (Acute) Due to chronic liver disease from PBC/PBSLymphedema (Acute) Gallstones (Acute) RUQ pain & diarrheaEssential tremor (Acute) Primary osteoarthritis of right knee (Acute) Injection: 08/14/22; 05/15/2022; [place]19[place] History of colpocleisis (Acute) [place] colpocleisis posterior perineorrhaphy cystoscopy at [facility] 09/05/2022 Shortness of breath (Acute) Pleural effusion on right (Acute) Medical History? Actinic keratosis Allergy to hymenoptera venom (12/13/17) Asthma Carcinoma of left breast Invasive intraductal, on arimedex, followed by Oncology Chronic pruritus Cortical age-related cataract of both eyes (12/19/16) Cystocele and rectocele with incomplete uterovaginal prolapse Fitted with #3 Gelhorn pessary Feb 2022; pending eval [place] [facility] [place]. Currently using a continence dish with knob.? Persistent cystocele is present.? Consultation with [facility] has been undertaken and she has an in person visit with them at the end of June,.? They recommended colpocleisis. Diabetes mellitus Diverticulosis Esophageal ulcer Essential hypertension Gastric ulcer Grade II internal hemorrhoids History of aspiration pneumonia Hypercholesterolemia Hypermetropia Left inguinal hernia Obesity Osteoarthritis Palliative care patient Squamous cell carcinoma of skin of left lower extremity 3.5cm LLE Syncope Synovial cyst of left popliteal space (09/01/16) Torn rotator cuff (06/23/13) Repair rotator cuff by Dr. Kaden Escobedo 06-23-2013 Surgical History? Biopsy of breast (04/18/17) benign breast tissue with cyst wallColonoscopy - IV Sedation 10 + years ago- normal Colonoscopy - MAC (12/31/17) EGD - MAC (12/31/17) ganglion, left ankle H/O inguinal hernia repair Nuclear senile cataract Oseotomy (10/06/98) TONNY BILATERAL FEET Rotator Cuff Repair (06/23/13) Right with distal clavical excision Status post Mohs surgery for squamous cell carcinoma of skin Social History/Home Situation: Lives alone in a private home with 4 steps to enter. Independent with all aspects of ADLs prior to admission. Independent with use of FWW at home. Equipment Owned/DME: FWW, SPC Subjective: Happy with how much reduction in swelling in B her legs since admission. Unsure of how much help she will have at home as her son has COVID and her daughter is handicap. Agreeable with PT services to continue work on strengthening and balance. Objective: General Observation: Seated on bedside chair. Swelling and beginning fibrosis in skin to B legs, mildly erythematous. Mental Status: Alert and oriented as to person, place, time, and purpose. Able to pay attention, focus, and respond appropriately. Pain: B knees and legs 2-3/10 ROM: Right Upper Extremity: ? Shoulder Flexion WFL. Shoulder abduction WFL. Elbow flexion WFL. Wrist flexion WFL. Functional opening and closing of hand WFL. Left Upper Extremity:? Shoulder Flexion WFL. Shoulder abduction WFL. Elbow flexion WFL. Wrist flexion WFL. Functional opening and closing of hand WFL. Right Lower Extremity: Hip flexion WFL. Hip abduction WFL. Knee flexion WFL. Ankle dorsiflexion WFL. Ankle plantarflexion WFL. Left Lower Extremity: Hip flexion WFL. Hip abduction WFL. Knee flexion WFL. Ankle dorsiflexion WFL. Ankle plantarflexion WFL. Strength: Right Upper Extremity: Shoulder flexors 4-/5. Shoulder abductors 4-/5. Elbow flexors 5/5. Elbow extensors 4/5. Apartment Leasing Manager strong. Left Upper Extremity: Shoulder flexors 4-/5. Shoulder abductors 4-/5. Elbow flexors 5/5. Elbow extensors 4/5. Apartment Leasing Manager strong. Right Lower Extremity: Hip flexors 4-/5. Hip abductors 4-/5. Knee flexors 4-/5. Knee extensors 4-/5. Ankle dorsiflexors 4-/5. Ankle plantarflexors 4-/5. Left Lower Extremity: Hip flexors 4-/5. Hip abductors 4-/5. Knee flexors 4-/5. Knee extensors 4-/5. Ankle dorsiflexors 4-/5. Ankle plantarflexors 4-/5. Bed Mobility/Transfers: Sit to stand supervision Stand to sit supervision Bed to reclining chair supervision Gait: Instructed patient with level surface ambulation of 250 feet requiring supervision assist. No path deviation. No LOB. Minimal shortness of breath resolved with rest. Balance: Static Sitting: Normal Dynamic Sitting: Normal Static Standing: Fair Dynamic Standing: Fair Special Tests: Mobility Limitations Standardized Measure [facility] 6 clicks Basic Mobility Inpatient Short Form: Raw Score: 23? CMS Score: 11% deficit? ? ? 4-Stage Balance Test: Unable to maintain semi-tandem, tandem, and one legged stance for 10 seconds indicating a risk for falls. Informed Consent/Education:? Patient was instructed in purpose of PT consult and plan of care. Agreeable to proceed with established PT POC to achieve personal goals. Assessment: Patient presents with clinical signs and symptoms consistent with current/admitting diagnoses that have resulted to mobility limitations, gait instability, generalized weakness, and overall ADL decline as demonstrated by the following impairment level findings: 1.? Impaired sitting/standing balance 2.? Swelling in B LE Impairments are contributing to the following functional limitations: 1.? Difficulty with ambulation without assistive device 2.? Increased completion time for mobility ADL performance 3.? Increased risk for falls Patient is assessed as a 00104 moderate complexity based on the following: History: 86-year-old female with past medical history as indicated above Examination: Demonstrable impairment in strength, balance, and mobility level with underlying impairments and functional limitations as exhibited above as well as deficit score of 11% utilizing the [facility] Mobility Inpatient Short Form Presentation: Evolving Decision Makin moderate complexity Goals: Goals X1 week 1. Supine-Sit independent 2. Sit-Supine independent 3. Sit-Stand independent 4. Stand-Sit independent with FWW 5. Bed-Chair independent with FWW 6. Chair-Bed independent with FWW 7. Independent gait on level surface with use of FWW for at least 100 feet without report of pain nor dyspnea Plan of Care/Treatment Plan: 1-2x/day, 7 days/week x 1 week. Plan of care has been reviewed with the STORAGE RECEIPT POSTER providing the service under Physical Therapy direction. Initiate Physical Therapy intervention for pain management as needed, strengthening, bed mobility, transfers, gait, stairs, balance training, and use of assistive device. DISCHARGE RECOMMENDATIONS: [] ? Home with no services [] [X] ? Home with services.? Home when medically cleared by hospitalist. Patient will benefit from home health PT services in order to progress mobility level using least restrictive assistive ambulatory device, assess home safety, identify additional equipment needs, and establish a functional maintenance program that will increase ability of patient to remain at home. [] ? Home with outpatient PT [] [] ? SNF for continued rehabilitation [] [] ? Care Home Care [] [] ? SNF versus LTC based on ability to participate and progress [] TREATMENT CODE/TIME: 45363 x 20 minutes, 99767 x 14 minutes beginning at 11:30 AM. Thank you for the opportunity to participate in the care of this patient. Mary Shelley PT, DPT, CLT [facility] [place], [place]
--- NOTE | 2022-09-26 12:13 | W.PM.PROGNOT ---
Date of Service Date of service: 09/26/22 Time of Service: 12:13 Assessment and Plan Assessment and plan (1) Primary biliary cholangitis: Status: Chronic Assessment and plan: With cirrhosis, portal hypertension and esophogeal varices. 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 s/p right thoracentesis w/ 1400 mL fluid removed on 09/23/[address] Solomon Estrella. No fluid studies were sent. Upon discharge home we will restart her Lasix at 20 mg twice a day and consider addition of eplerenone. Potassium down to 3.1 after coming up to 4.8 yesterday with IV and oral supplementation. Currently receiving oral and IV replacement. Recheck levels this afternoon. Plan for discharge home this afternoon once her potassium is at an adequate level. Professional time spent interviewing and examining patient, discussion of goals of care with hospital team (care management, nursing and consulting professionals) was 20 minutes. (2) Cirrhosis: Status: Acute Assessment and plan: As above. Cont ursodiol. Patient reportedly scheduled to follow-up with her manager university at [facility] in early November. (3) Asthma: Assessment and plan: Cont prn albuterol nebs. no wheezing noted today. (4) Seizure disorder: Status: Chronic Assessment and plan: Cont levetiracetam 1,000mg BID (5) Protein-calorie malnutrition, moderate: Status: Acute Assessment and plan: Likely secondary to her cirrhosis. Offer supplemental protein Patient received albumin infusions yesterday with her IV Lasix (6) Lymphedema: Status: Acute Assessment and plan: BLE wraps to be applied daily. (7) History of colpocleisis: Status: Acute Assessment and plan: 09/05/2022 underwent a [place] colpocleisis with colpoperineorrhaphy with cystoscopy at [facility] on 09/05/2022.? (8) Pleural effusion on right: Status: Acute Assessment and plan: As above. SPO2 98% on room air Gen Surg consulted and performed thoracentisis 1400 mL removed. no pleural fluid studies were sent to the lab (9) Essential hypertension: Assessment and plan: Controlled on no antihypertensive meds. Monitor. (10) Discharge planning issues: Status: Acute Assessment and plan: Plan for discharge home tomorrow morning with home health services including nursing and PT and INB[employer] CUST[employer]ENT Dr. Zazueta plans to return around 5 PM to discuss with patient and her family regarding completion of POLST form. At this time patient remains full code Subjective Subjective Patient reports: no new complaints and feels better; denies shortness of breath Exam Narrative Exam Narrative: Patient is feeling better she is not short of breath leg edema has improved. She is looking forward to going home. Lungs are clear to auscultation anteriorly posteriorly she still has some rales at the right base. Heart is regular rate and rhythm with soft systolic murmur no thrill or heave or gallop Abdomen with some ascites Lower extremities with 1+ pitting edema Objective Last Vital Signs Temp 36.2 C L 09/26/22 08:06 Pulse 97 H 09/26/22 08:06 Resp 16 09/26/22 08:06 BP 132/81 09/26/22 08:06 Pulse Ox 93 09/26/22 08:06 Laboratory Results - last 24 hr 09/25/22 09/26/22 15:17 05:50 Sodium 141 Potassium 4.8 D 3.1 L D Chloride 102 Carbon Dioxide 33.5 H Anion Gap 5.5 BUN 16 Creatinine 0.6 Est GFR (CKD-EPI 2020) 87.91 Glucose 98 Calcium 9.0 Magnesium 1.7 L Time Spent with Patient Time Spent with Patient: <25 minutes Time was spent: preparing to see the patient(eg.review tests), ordering medications,tests, procedures, indepentently interpreting results, counseling the patient and care coordination
--- NOTE | 2022-09-26 14:27 | PTTR_ITS ---
PT Notes Visit Reasons: Acute Hypoxic Respiratory Failure,Hydrothorax Subjective: pt reports that she is doing good, denies pain, in recliner taking potassium via IV line when approched for therapy this afternoon. Therapeutic Activities 45402 8mins: instruction in dynamic activities with one on one patient contact by the provider to improve functional performance?as follows: Review of HEP in preparation for pt DC: Seated Gluteal setting [id number] 5secs hold Seated Quad setting [id number] 5secs hold Seated hip abduction/adduction [id number] Seated heel raise [id number] Seated diaphragmatic breating inhale 5secs exhale [id number] Assessment: pt refused standing activity/walking due complaints of potassium in IV line stings and that she is afraid to move and increase already painful IV line site. Plan: DC to home with home health services?
--- NOTE | 2022-09-26 14:27 | PT.INTREAT ---
PT Notes Visit Reasons: Acute Hypoxic Respiratory Failure,Hydrothorax Subjective: pt reports that she is doing good, denies pain, in recliner taking potassium via IV line when approched for therapy this afternoon. Therapeutic Activities 80195 8mins: instruction in dynamic activities with one on one patient contact by the provider to improve functional performance?as follows: Review of HEP in preparation for pt DC: Seated Gluteal setting [id number] 5secs hold Seated Quad setting [id number] 5secs hold Seated hip abduction/adduction [id number] Seated heel raise [id number] Seated diaphragmatic breating inhale 5secs exhale [id number] Assessment: pt refused standing activity/walking due complaints of potassium in IV line stings and that she is afraid to move and increase already painful IV line site. Plan: DC to home with home health services?
[2022-09-26 15:14] LABS: Potassium 4.7 mmol/L (3.5-5.1)
--- NOTE | 2022-09-26 15:17 | W.PM.DS.N ---
Date of service: 09/26/22 Time of Service: 15:17 DS: Diagnosis Discharge Diagnosis (1) Pleural effusion on right: Status: Acute (2) Primary biliary cholangitis: Status: Chronic (3) Cirrhosis: Status: Acute (4) Asthma: (5) Seizure disorder: Status: Chronic (6) Protein-calorie malnutrition, moderate: Status: Acute (7) Lymphedema: Status: Acute (8) History of colpocleisis: Status: Acute (9) Essential hypertension: Discharge Plan Disposition Patient Disposition: Home W/Home Health Services Condition: Improving Discharge Details Reason For Visit: Acute Hypoxic Respiratory Failure,Hydrothorax Admit Date/Time: 09/23/22 13:58 Admit Provider: Abel Guzmán Attending Provider: Abel Guzmán Primary Care Provider: Macarena Blankenship Hospital Course Hospital Course: 87-year-old female with a 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 CT scan of her chest showed no acute pulmonary emboli but a large right pleural effusion with subjacent collapse of right lower lobe. She has mild cardiomegaly. No pericardial effusion she has prominent ascites and hepatic cirrhosis. Dr. Solomon Estrella from general surgery was consulted who performed thoracentesis of her right hydrothorax. He removed 1400 mL of pleural fluid. No pleural studies were sent for culture or cytology or chemistries. Patient had marked improvement in her dyspnea and her hypoxemia and was weaned off of oxygen. Patient was diuresed with IV Lasix. Spironolactone was recommended but patient refused to take spironolactone due to previous side effects of fatigue and hypotension. Patient's weight declined from 61 kg on admission down to 53.4 kg at discharge. Patient diuresed a net -6500 mL over hospital stay. Upon discharge she was started on furosemide 20 mg twice a day orally. Patient states she had been on 40 mg once a day in the past and was intolerant to this dose. Patient did experience hypokalemia and hypomagnesemia which necessitated both IV and oral supplementation. Potassium on admission was 3.7 but with diuresis she dropped down to as low as 2.7. She required both IV and oral supplementation at the time of discharge her potassium was up to 4.7. She did require generous amounts of oral supplementation including 40 mill equivalents of potassium 3 times a day. As long as she remains on furosemide twice a day she needs higher doses of potassium since she refuses to take spironolactone or eplerenone. She was given a one-time dose of Zaroxolyn 2.5 mg with her IV Lasix which helped with her diuresis. At the time of discharge her renal function was stable with a BUN of 16 creatinine of 0.6. Magnesium was still little low at 1.7. Patient be discharged on furosemide 20 mg twice a day Zaroxolyn 2.5 mg twice a week as needed if she has a 3 pound weight gain or more or has increasing bilateral leg edema. Potassium be 40 mill equivalents 3 times a day. Repeat BMP and magnesium level recommended within 1 week. Patient will continue her magnesium supplementation. On the day of her discharge physical therapy saw her and evaluated her and recommended use of a walker at home and continued home health services with home PT. She will resumption of her previous home health services with nursing and PT will be added to her home health program. Home Meds and New Rx's Prescriptions: New furosemide 40 mg/4 mL solution 20 mg PO BID 30 Days Qty: 120 0RF metolazone 2.5 mg tablet See Rx Instructions .ROUTE .COMPLEX Qty: 12 0RF Rx Instructions: 2.5 mg orally one tablet every 3 days prn weight gain over 3 lbs associated w/ edema Continued milk thistle 150 mg capsule 150 mg PO DAILY Patient Comments: 01/05/22- pt unsure of dose Rx Instructions: give with meal/snack calcium carbonate [Calcium 600] 600 mg calcium (1,500 mg) tablet 600 mg PO DAILY Patient Comments: 01/05/22- pt unsure of dose magnesium gluconate 27.5 mg magne- sium (500 mg) tablet 27.5 mg PO BID calcium [id number]-mag [id number] gr-[id number]-mg tablet 1 tab PO DAILY Patient Comments: 01/05/22- pt unsure of dose Rx Instructions: administer with a meal levetiracetam 1,000 mg tablet 1,000 mg PO BID Qty: 180 3RF ursodiol 300 mg capsule 300 mg PO Patient Comments: TAKE ONE CAPSULE BY MOUTH THREE TIMES A DAY cholecalciferol (vitamin D3) [Vitamin D3] 2,000 UNIT capsule 1,000 unit PO DAILY benzonatate 100 mg capsule 100 mg PO TID PRN (Reason: cough) Qty: 30 0RF albuterol sulfate [ProAir HFA] 90 mcg/actuation HFA aerosol inhaler 1 puff Inhalation Q6H PRN Qty: 3 4RF Changed potassium chloride 40 mEq/15 mL liquid 40 meq PO TID 30 Days Qty: 1350 0RF Discontinued furosemide 20 mg tablet 20 mg PO DAILY potassium chloride 10 mEq tablet extended release 10 meq PO DAILY Qty: 90 3RF Discharge Instructions Instructions: Furosemide (By mouth), Ascites (DC) Additional Instructions: Get follow up lab work in the next week. Ask Dr. Blankenship's office to order BMP and magnesium level in the next week. Stand Alone Forms: Nursing Discharge Form Referrals: Macarena Blankenship MD [Primary Care Provider] - 10/02/22 10:00 am (your appointment on sunday the was changed to the at 10am ) Activity:: Activity as Tolerated Equipment/Supplies:: No Equipment Needed Diet:: Low Sodium Discharge Orders Other Ambulatory Orders: Basic Metabolic Panel (Routine) Timeframe: 1 Week Facility: [facility] - Location: [facility] Outpatient - [facility] Ordered By: Drew Apple Magnesium (Routine) Timeframe: 1 Week Facility: [facility] - Location: [facility] Outpatient - [facility] Ordered By: Drew Apple DS: Summary Time Spent with Patient providing and/or coordinating discharge services: Greater than 30 minutes Specific discharge activities: Interview/exam of patient; review of discharge instructions, completion of prescriptions/discharge instructions; discussion w/ nursing and CM; documentation of hospital visit Status at Discharge Functional status at discharge: uses cane/walker Overall status at discharge: patient is progressing back to baseline Mental Status: mental status grossly normal Speech and Movement: speech and movement normal Mood: congruent mood Affect: normal affect Exam Narrative Exam Narrative: Patient is feeling better she is not short of breath leg edema has improved. She is looking forward to going home. Lungs are clear to auscultation anteriorly posteriorly she still has some rales at the right base. Heart is regular rate and rhythm with soft systolic murmur no thrill or heave or gallop Abdomen with some ascites Lower extremities with 1+ pitting edema Psych Mental Status: mental status grossly normal Speech and Movement: speech and movement normal Mood: congruent mood Affect: normal affect DS: Data Vitals/I&O Vitals and I&O: Vital Signs Temperature 36.2 C L 09/26/22 08:06 Temperature Source Tympanic 09/26/22 08:06 Pulse 97 H 09/26/22 08:06 Pulse Rhythm Regular 09/26/22 11:51 Pulse 107 H 09/23/22 14:01 Respiratory Rate 16 09/26/22 08:06 Respiratory Effort Normal 09/26/22 11:51 Respiratory Depth Normal 09/26/22 11:51 Respiratory Pattern Normal 09/26/22 11:51 Blood Pressure 132/81 09/26/22 08:06 Blood Pressure Mean 93 09/23/22 14:01 Blood Pressure Position Sitting 09/23/22 08:56 Pulse Oximetry 93 09/26/22 08:06 Oxygen Delivery Method Room Air 09/26/22 08:06 Oxygen Flow Rate 0 09/26/22 08:06 Fraction of Inspired Oxygen (FIO2) 95 09/26/22 07:53 Pain Level 0 09/25/22 23:01 Comment denies any chest pain 09/25/22 08:00 Intake & Output 09/25/22 09/26/22 09/26/22 23:59 11:59 23:59 Intake Total 10 / 410 100 / 900 800 / 900 Output Total 1050 / 0 1650 / 1650 Balance -1040 / -1640 -1550 / -750 800 / -750 Weight 53.4 kg Intake: IV 10 / 410 100 / 300 200 / 300 Oral 600 / 600 Output: Urine 105 / 0 1500 / 1500 Stool 150 / 150 Other: Urine Color Yellow Yellow Urine Appearance Clear Clear Urine Odor Strong None Stool Size Moderate Moderate Stool Characteristics Soft Soft Formed Voiding Methods Toilet Toilet Data Completed and Pending Labs on day of discharge: Labs from last 24 hours 09/26/22 09/26/22 09/26/22 15:00 14:57 05:50 Sodium 141 Potassium Pending Pending 3.1 L D Chloride 102 Carbon Dioxide 33.5 H Anion Gap 5.5 BUN 16 Creatinine 0.6 Est GFR (CKD-EPI 2020) 87.91 Glucose 98 Calcium 9.0 Magnesium 1.7 L 09/25/22 15:17 Sodium Potassium 4.8 D Chloride Carbon Dioxide Anion Gap BUN Creatinine Est GFR (CKD-EPI 2020) Glucose Calcium Magnesium Preliminary micro results at discharge 09/23/22 11:38 Blood Culture - Preliminary Blood NO GROWTH 72 HOURS 09/23/22 11:30 Blood Culture - Preliminary Blood NO GROWTH 72 HOURS PFSH All Active Problems Hypomagnesemia (Acute) Medication monitoring encounter (Acute) Ascites controlled with medication (Acute) Discharge planning issues (Acute) Primary osteoarthritis of left knee (Acute) Injection: 08/14/22; 05/15/2022; 01/19/2022 ([facility] [place]) Primary biliary cholangitis (Chronic) followed by GI [facility], associated with chronically elevated transaminases Cirrhosis (Acute) 2.2021-secondary to the primary biliary cholangitis, followed by GI at [facility] EGD with small varices in 10/2021. Pt unable to tolerate propranolol. 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 Documented by EGD at [facility] 2021 Compression fracture of lumbar vertebra (Acute) Fe deficiency anemia (Acute) History of iron deficiency anemia. She has seen hematology and thought it was due to a mixed etiology Emphysema lung (Acute) Seizure disorder (Chronic) Protein-calorie malnutrition, moderate (Acute) Osteoporosis (Chronic) Elevated INR (Acute) Due to chronic liver disease from PBC/PBS Lymphedema (Acute) Gallstones (Acute) RUQ pain & diarrhea Essential tremor (Acute) Primary osteoarthritis of right knee (Acute) Injection: 08/14/22; 05/15/2022; 01/19/2022 ([facility] [place]) History of colpocleisis (Acute) [place] colpocleisis posterior perineorrhaphy cystoscopy at [facility] 09/05/2022 Shortness of breath (Acute) Pleural effusion on right (Acute) Medical History Actinic keratosis 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 Currently using a continence dish with knob. Persistent cystocele is present. [facility] and she has an in person visit with them at the end of June,. They recommended colpocleisis. Diabetes mellitus Diverticulosis Esophageal ulcer Essential hypertension Gastric ulcer Grade II internal hemorrhoids History of aspiration pneumonia Hypercholesterolemia Hypermetropia Left inguinal hernia Obesity Osteoarthritis Palliative care patient Squamous cell carcinoma of skin of left lower extremity 3.5cm LLE Syncope Synovial cyst of left popliteal space (09/01/16) Torn rotator cuff (06/23/13) Repair rotator cuff by Dr. Kaden Escobedo 06-23-2013 Surgical History Biopsy of breast (04/18/17) benign breast tissue with cyst wall Colonoscopy - IV Sedation 10 + years ago- normal Colonoscopy - MAC (12/31/17) EGD - MAC (12/31/17) ganglion, left ankle H/O inguinal hernia repair Nuclear senile cataract Oseotomy (10/06/98) TONNY BILATERAL FEET Rotator Cuff Repair (06/23/13) Right with distal clavical excision Status post Mohs surgery for squamous cell carcinoma of skin Family History Mother , 88 Diabetes Essential hypertension Heart disease Hyperlipidemia Father , 63 Neoplasm BLADDER Sister Hyperlipidemia Breast cancer Brother Diabetes Essential hypertension Hyperlipidemia Neoplasm PROSTATE Prostate cancer Maternal Grandfather No problems noted. Paternal Grandfather No problems noted. Maternal Grandmother Diabetes Paternal Grandmother No problems noted. 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 Pets and animals: Yes Pets and animals: dog(s) Sexually active: No Do you think of yourself as: straight/heterosexual Current gender identity: female What is your relationship status?: How often do you talk on the phone with friends or family?: three or more times per week How often do you get together with friends or relatives?: once per week How often do you attend uatsdin or temple services?: decline to answer Do you belong to any clubs or organized social groups?: no Panel score (0-1 are the most socially isolated patients): 1 What type of physical activity do you participate in: none Frequency: does not exercise Nhung/Faith: No preference Special nhung needs: No Seatbelt use: always Drive intox or ride w/intox uke 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 Date GA/Weeks # Preg Succ Route Wgt Sex Labor Lgth Anesthesia Location Prov Complic 12/13/1955 40 No Yes vaginal Female 10/12/1959 40 No Yes vaginal Male Time Spent with Patient Time Spent with Patient: <45 minutes Time was spent: preparing to see the patient(eg.review tests), ordering medications,tests, procedures, referring, communicating with other health day care assistant (Preparing discharge instructions and discharge summary), indepentently interpreting results, counseling the patient and care coordination
[2022-09-26 15:30] VITALS: BP 122/67; PULSE 91; RESP 16; TEMP 36.8; O2SAT 93
--- NOTE | 2022-09-26 15:39 | PDOC.HHF2F_ITS ---
Home Health Referral Home Health Orders Clinical synopsis of why skilled professionals are needed: Ascites, anasarca, cirrhosis causing increasing exertional dyspnea and bilateral leg edema. Patient needs home nursing to monitor blood pressure and her diuresis as well as to instruct her on her medications and draw follow-up labs including repeat BMP and magnesium within the next week. Results to be called to Dr. Macarena Blankenship patient's primary care provider Physical therapy has been added to her home health services because the patient's generalized weakness and deconditioning and amatory dysfunction requiring continued strengthening exercises and to improve her ambulation and her ADL performance. Medical diagnosis necessitation home health referral: Cirrhosis secondary to primary biliary cholangitis, ascites, pleural effusion Registered Nurse: Check all that apply Instruct on new or changed medication(s)/assess compliance: Ordered Other: Draw and monitor labs instruct patient on medication changes and to monitor for side effects, coordinate with PCP regarding any further changes therapy Physical Therapist: Check all that apply Increase strength & endurance for safe mobility at home: Ordered To design/establish home maintenance program: Ordered Manager Administration: Assist with community resources: Ordered Home Bound Status Requires the aid of supportive device (check all that apply): Walker Assistance of another person (Describe assistance and medical necessity): Patient requires assistance of family to perform ADLs including personal healthcare Patient has a condition such that leaving home is medically contraindicated (Describe): Patient's anasarca from her cirrhosis increase her risk for clinical deterioration with prolonged travel outside her home. Describe why leaving home would require a considerable and taxing effort: Requires frequent rest periods Encounter Date and Reason: I certify that a FTF encounter for this patient was performed on September 26, 2022 and that such encounter was related to the primary reason the patient requires home health services. The encounter was conducted in the following manner: * By me as the certifying physician, SENIOR CLINICAL PROJECT MANAGER, PA or * By an inpatient physician, SENIOR CLINICAL PROJECT MANAGER or PA during an inpatient stay who communicated findings to me, Certification And Authentication I certify that I composed the above information based on my clinical judgment relating to this patient's medical condition and, if applicable, clinical findings communicated to me by the NPP or inpatient physician who performed the FTF encounter. Name of Provider that will be monitoring home health services: Macarena Blankenship
[2022-09-26] MEDS: Furosemide 20 MG TAB PO (16:08)
--- NOTE | 2022-09-26 16:24 | PDOC.CMDIS ---
- If Service Date Differs Date of service: 09/26/22 Time of Service: 16:24 LACE Index Scoring Tool - Questions: Length of Stay (in days): 3 Acuity (Admit via E.D.?): Yes Comorbidities: Diabetes w/o Complication, Metastatic Solid Tumor E.D. Visits: 3 - Answers: Total Score: 14 Risk of Readmission: High Risk Care Management Discharge Reason for Hospitalization: Biliary cholangitis Discharge Plan: Elina is discharged home with resumption of H RN services, add PT/PRODUCTION MACHINE OPERATOR services. She is driven home via private vehicle with family. Elina will follow up with community providers and discharge plan of care as prescribed. Patient/Family Education Needs: Review discharge instructions, limitations, medications and plan to follow up with community providers. Discuss ask me three. Services Needed at Discharge: Home Health Care Services (Rsumption H RN, add PT/PRODUCTION MACHINE OPERATOR)
--- NOTE | 2022-09-28 08:40 | PT.INDS ---
Date of service: 09/26/22 PT Notes Visit Reasons: Acute Hypoxic Respiratory Failure,Hydrothorax Physical Therapy Inpatient Initial Evaluation Date: 09/26/2022 Dates of Service: 09/26/2022 only This is a clinical summary of services provided for the duration of date indicated above. No charge was made in the completion of this summary. Referring Doctor: Drew Apple,? PT Orders: PT CONSULT: Safety consult for D/C Precautions: Fall. Standard. Activity as tolerated. Patient Profile/Admitting Diagnosis: Gurinder is an 87-year-old female presented to the ED on 09/23/2022 with? worsening shortness of breath and weakness that have been going on for months now. ? patient is admitted for management of primary billiary cholangitis,? cirrhosis,? asthma,? seizure disorder,? protein calorie malnutrition,? lymphedema to B LE,? pleural effusion R,? and essential hypertension. PFSH: All Active Problems? Primary osteoarthritis of left knee (Acute) Injection: 08/14/22; 05/15/2022; 01/19/2022 ([facility]) Primary biliary cholangitis (Chronic) followed by GI [facility], associated? with chronically elevated transaminases Cirrhosis (Acute) 2.2021-secondary to the primary biliary cholangitis, followed by GI at [facility] EGD with small varices in 10/2021.? Pt unable to tolerate propranolol. 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 Documented by EGD at [facility] 2021 Compression fracture of lumbar vertebra (Acute) Fe deficiency anemia (Acute) History of iron deficiency anemia.? She has seen hematology and thought it was due to a mixed etiology Emphysema lung (Acute) Seizure disorder (Chronic) Protein-calorie malnutrition, moderate (Acute) Osteoporosis (Chronic) Elevated INR (Acute) Due to chronic liver disease from PBC/PBSLymphedema (Acute) Gallstones (Acute) RUQ pain & diarrheaEssential tremor (Acute) Primary osteoarthritis of right knee (Acute) Injection: 08/14/22; 05/15/2022; 01/19/2022 ([facility]) History of colpocleisis (Acute) [place] colpocleisis posterior perineorrhaphy cystoscopy at [facility] 09/05/2022 Shortness of breath (Acute) Pleural effusion on right (Acute) Medical History? Actinic keratosis Allergy to hymenoptera venom (12/13/17) Asthma Carcinoma of left breast Invasive intraductal, on arimedex, followed by Oncology Chronic pruritus Cortical age-related cataract of both eyes (12/19/16) Cystocele and rectocele with incomplete uterovaginal prolapse Fitted with #3 Gelhorn pessary Sept 2021; pending eval at [facility] for poss surgery. Currently using a continence dish with knob.? Persistent cystocele is present.? Consultation with [facility] has been undertaken and she has an in person visit? with them at the end of June,.? They recommended colpocleisis. Diabetes mellitus Diverticulosis Esophageal ulcer Essential hypertension Gastric ulcer Grade II internal hemorrhoids History of aspiration pneumonia Hypercholesterolemia Hypermetropia Left inguinal hernia Obesity Osteoarthritis Palliative care patient Squamous cell carcinoma of skin of left lower extremity 3.5cm LLE Syncope Synovial cyst of left popliteal space (09/01/16) Torn rotator cuff (06/23/13) Repair rotator cuff by Dr. Kaden Escobedo 06-23-2013 Surgical History? Biopsy of breast (04/18/17) benign breast tissue with cyst wallColonoscopy - IV Sedation 10 + years ago- normal Colonoscopy - MAC (12/31/17) EGD - MAC (12/31/17) ganglion, left ankle H/O inguinal hernia repair Nuclear senile cataract Oseotomy (10/06/98) TONNY BILATERAL FEET Rotator Cuff Repair (06/23/13) Right with distal clavical excision Status post Mohs surgery for squamous cell carcinoma of skin Social History/Home Situation: Lives alone in a private home with 4 steps to enter.? Independent with all aspects of ADLs prior to admission. Independent with use of FWW at home. Equipment Owned/DME: FWW, SPC Subjective: NT. Please see most recent [facility] notes. Objective: General Observation: Seated on bedside chair. Swelling and beginning fibrosis in skin to B legs, mildly erythematous. Mental Status: Alert and oriented as to person, place, time, and purpose. Able to pay attention, focus, and respond appropriately. Pain: B knees and legs 2-310 ROM: Right Upper Extremity: ? Shoulder Flexion WFL. Shoulder abduction WFL. Elbow flexion WFL. Wrist flexion WFL. Functional opening and closing of hand WFL. Left Upper Extremity:? Shoulder Flexion WFL. Shoulder abduction WFL. Elbow flexion WFL. Wrist flexion WFL. Functional opening and closing of hand WFL. Right Lower Extremity: Hip flexion WFL. Hip abduction WFL. Knee flexion WFL. Ankle dorsiflexion WFL. Ankle plantarflexion WFL. Left Lower Extremity: Hip flexion WFL. Hip abduction WFL. Knee flexion WFL. Ankle dorsiflexion WFL. Ankle plantarflexion WFL. Strength: Right Upper Extremity: Shoulder flexors 4-/5. Shoulder abductors 4-/5. Elbow flexors 5/5. Elbow extensors 4/5. Sketcher strong. Left Upper Extremity: Shoulder flexors 4-/5. Shoulder abductors 4-/5. Elbow flexors 5/5. Elbow extensors 4/5. Sketcher strong. Right Lower Extremity: Hip flexors 4-/5. Hip abductors 4-/5. Knee flexors 4-/5. Knee extensors 4-/5. Ankle dorsiflexors 4-/5. Ankle plantarflexors 4-/5. Left Lower Extremity: Hip flexors 4-/5. Hip abductors 4-/5. Knee flexors 4-/5. Knee extensors 4-/5. Ankle dorsiflexors 4-/5. Ankle plantarflexors 4-/5. Bed Mobility/Transfers: Sit to stand supervision Stand to sit supervision Bed to reclining chair supervision Gait: Instructed patient with level surface ambulation of 250 feet requiring supervision assist. No path deviation.? No LOB.? Minimal shortness of breath resolved with rest. Balance: Static Sitting: Normal Dynamic Sitting: Normal Static Standing: Fair Dynamic Standing: Fair Special Tests: Mobility Limitations Standardized Measure [facility] 6 clicks Basic Mobility Inpatient Short Form: Raw Score: 23? CMS Score: 11% deficit? ? ? 4-Stage Balance Test: Unable to maintain semi-tandem, tandem, and one legged stance for 10 seconds indicating a risk for falls. Assessment: Patient presents with clinical signs and symptoms consistent with current/admitting diagnoses that have resulted to mobility limitations, gait instability, generalized weakness, and overall ADL decline as demonstrated by the following impairment level findings: 1.? Impaired sitting/standing balance 2.? Swelling in B LE Impairments are contributing to the following functional limitations: 1.? Difficulty with ambulation without assistive device 2.? Increased completion time for mobility ADL performance 3.? Increased risk for falls Goals: Goals X1 week 1. Supine-Sit independent MET 2. Sit-Supine independent MET 3. Sit-Stand independent NOT MET 4. Stand-Sit independent with FWW NOT MET 5. Bed-Chair independent with FWW NOT MET 6. Chair-Bed independent with FWW NOT MET 7. Independent gait on level surface with use of FWW for at least 100 feet without report of pain nor dyspnea NOT MET DISCHARGE RECOMMENDATIONS: [] ? Home with no services [] [X] ? Home with services.? Home when medically cleared by hospitalist. Patient will benefit from home health PT services in order to progress mobility level using least restrictive assistive ambulatory device, assess home safety, identify additional equipment needs, and establish a functional maintenance program that will increase ability of patient to remain at home. [] ? Home with outpatient PT [] [] ? SNF for continued rehabilitation [] [] ? [facility] [] [] ? SNF versus LTC based on ability to participate and progress [] TREATMENT CODE/TIME: [facility] Thank you for the opportunity to participate in the care of this patient. Mary Shelley PT, DPT, CLT [facility] [place], [place]
== END 2022-09-26 17:26 | disposition home health service (06) | DRG 433 ==
LOC: ER 14:17 → MS 15:07
PROVIDERS: Internal Medicine; Admitting Provider Family Medicine; Emergency Provider Emergency Medicine; PCP Family Medicine; Visit Provider Family Medicine
DX: K74.3 Primary biliary cirrhosis (principal); E44.0 Moderate protein-calorie malnutrition; I85.10 Secondary esophageal varices without bleeding; K76.6 Portal hypertension; R18.8 Other ascites; J91.8 Pleural effusion in other conditions classified elsewhere; D50.9 Iron deficiency anemia, unspecified; M81.0 Age-related osteoporosis without current pathological fracture; G40.909 Epilepsy, unspecified, not intractable, without status epilepticus; Z68.23 Body mass index [BMI] 23.0-23.9, adult; I89.0 Lymphedema, not elsewhere classified; G25.0 Essential tremor; M17.0 Bilateral primary osteoarthritis of knee; E11.9 Type 2 diabetes mellitus without complications; I10 Essential (primary) hypertension; K64.1 Second degree hemorrhoids; E78.00 Pure hypercholesterolemia, unspecified; Z87.11 Personal history of peptic ulcer disease; J45.909 Unspecified asthma, uncomplicated; Z85.3 Personal history of malignant neoplasm of breast; Z98.890 Other specified postprocedural states
CPT/HCPCS: 32555; 36415; 71275; 80048; 80053; 84145; 87040; 87637; 93005; 94640; 96374; 97140; 97162; 97530; 99223; 99285; 71045; 81003; 81015; 83735; 83880; 84132; 84133; 84300; 84443; 84484; 85025; 85610; 85730; 87086; 93010; 99232; 99239; J1940; J3480; J7620

== ENCOUNTER 2022-09-29 18:05 | Outpatient (REF) | payer MEDICARE, SELFPAY ==
[2022-09-29 18:33] LABS: Anion Gap 5.3 mmol/L (3-11); BUN 15 mg/dL (7-18); CO2 29.7 mmol/L (21.0-32.0); CREATININE 0.7 mg/dL (0.55-1.02); Calcium 8.3 mg/dL (8.5-10.1); Chloride 104 mmol/L (98-107); Glucose 147 mg/dL (74-106); Potassium 4.6 mmol/L (3.5-5.1); Sodium 139 mmol/L (136-145)
== END 2022-09-29 18:06 | disposition home or self-care (01) ==
LOC: LBN 18:05
PROVIDERS: PCP Family Medicine; Visit Provider Internal Medicine
DX: D50.9 Iron deficiency anemia, unspecified (principal); E83.42 Hypomagnesemia; I10 Essential (primary) hypertension; E11.9 Type 2 diabetes mellitus without complications; E78.00 Pure hypercholesterolemia, unspecified
CPT/HCPCS: 80048; 83735

== ENCOUNTER 2022-10-04 17:04 | Outpatient (REF) | payer MEDICARE, SELFPAY ==
[2022-10-04 17:49] LABS: Anion Gap 7.3 mmol/L (3-11); BUN 14 mg/dL (7-18); CO2 31.7 mmol/L (21.0-32.0); CREATININE 0.8 mg/dL (0.55-1.02); Calcium 8.5 mg/dL (8.5-10.1); Chloride 99 mmol/L (98-107); Estimated GFR 72.16 (mL/min/1.73m2); Glucose 190 mg/dL (74-106); Potassium 3.7 mmol/L (3.5-5.1); Sodium 138 mmol/L (136-145)
== END 2022-10-04 17:05 | disposition home or self-care (01) ==
LOC: LBN 17:04
PROVIDERS: PCP Family Medicine; Visit Provider Nurse Practitioner Family
DX: E87.6 Hypokalemia (principal); R06.02 Shortness of breath; J90 Pleural effusion, not elsewhere classified
CPT/HCPCS: 80048

== ENCOUNTER 2022-10-17 17:49 | Outpatient (REF) | payer MEDICARE, SELFPAY ==
[2022-10-17 18:01] LABS: BUN 16 mg/dL (7-18); CREATININE 0.7 mg/dL (0.55-1.02); Calcium 8.9 mg/dL (8.5-10.1); Chloride 101 mmol/L (98-107); Glucose 70 mg/dL (74-106); Potassium 3.4 mmol/L (3.5-5.1); Sodium 139 mmol/L (136-145)
[2022-10-18 13:55] LABS: Lab Add On Test DONE
[2022-10-18 14:31] LABS: Magnesium 1.6 mg/dL (1.8-2.4)
== END 2022-10-17 17:50 | disposition home or self-care (01) ==
LOC: LBN 17:49
PROVIDERS: PCP Family Medicine; Visit Provider Family Medicine
DX: I89.0 Lymphedema, not elsewhere classified (principal); I10 Essential (primary) hypertension
CPT/HCPCS: 80048; 83735

== ENCOUNTER → 2022-11-20 09:55 | Outpatient (BNVA) | payer MEDICARE, SELFPAY | PROVIDERS: PCP Family Medicine; Visit Provider Student in an Organized Health Care Education/Training Program | DX: M17.11 Unilateral primary osteoarthritis, right knee (principal); M17.12 Unilateral primary osteoarthritis, left knee | CPT/HCPCS: 20610; J1040 ==

== ENCOUNTER 2022-12-01 01:14 | Outpatient (CLI) | payer MEDICARE, SELFPAY ==
[2022-12-01 13:10] LABS: ALT 91 U/L (14-59); AST 109 U/L (15-37); Albumin 2.6 g/dL (3.4-5.0); Alkaline Phosphatase 247 U/L (46-116); Anion Gap 7.4 mmol/L (3-11); BUN 16 mg/dL (7-18); Bilirubin, Total 2.9 mg/dL (0.2-1.0); CO2 28.6 mmol/L (21.0-32.0); CREATININE 0.7 mg/dL (0.55-1.02); Calcium 8.7 mg/dL (8.5-10.1); Chloride 105 mmol/L (98-107); Glucose 95 mg/dL (74-106); Magnesium 1.8 mg/dL (1.8-2.4); Potassium 3.1 mmol/L (3.5-5.1); Sodium 141 mmol/L (136-145); Total Protein 7.4 g/dL (6.4-8.2)
== END 2022-12-01 01:15 | disposition home or self-care (01) ==
LOC: LOS 01:15
PROVIDERS: PCP Family Medicine; Visit Provider Family Medicine
DX: E83.42 Hypomagnesemia (principal); I10 Essential (primary) hypertension; E11.9 Type 2 diabetes mellitus without complications
CPT/HCPCS: 36415; 80053; 83735

== ENCOUNTER 2023-01-17 01:06 | Outpatient (CLI) | payer MEDICARE, SELFPAY ==
[2023-01-17] MEDS: Barium Sulfate 2% W/V-Berry Smoothie 450 ML BTL PO (13:57)
[2023-01-17 14:24] LABS: ALT 40 U/L (14-59); AST 68 U/L (15-37); Albumin 2.1 g/dL (3.4-5.0); Alkaline Phosphatase 186 U/L (46-116); Anion Gap 5.5 mmol/L (3-11); BUN 8 mg/dL (7-18); Bilirubin, Total 3.1 mg/dL (0.2-1.0); CO2 26.5 mmol/L (21.0-32.0); CREATININE 0.7 mg/dL (0.55-1.02); Calcium 8.6 mg/dL (8.5-10.1); Chloride 106 mmol/L (98-107); Glucose 89 mg/dL (74-106); Potassium 4.2 mmol/L (3.5-5.1); Sodium 138 mmol/L (136-145); Total Protein 6.4 g/dL (6.4-8.2)
--- NOTE | 2023-01-17 14:45 | DI.CT_ITS ---
Exam(s) CT ABDOMEN WO/W EXAM: CT ABDOMEN WO/W CLINICAL HISTORY: CIRRHOSIS, K74.60; PORTAL VEIN THROMBOSIS, I81. TECHNIQUE: Imaging Protocol: Axial computed tomography images with coronal and sagittal reformatted images were created and reviewed CONTRAST MATERIAL: Intravenous: Omnipaque 350 Contrast volume:100 ml Contrast route:IV - Oral: yes / COMPARISON: CT CT ABDOMEN PELVIS W from 01/05/[address] CHEST PE CTA from 09/23/2022 FINDINGS: ABDOMEN: Lung Bases: Moderate right pleural effusion, improved from prior. No left pleural effusion. No samson cardial effusion. Scarring lingula. Compressive atelectasis right lower lobe. Heart moderately enl arged. Visualized portions of pulmonary arteries show no evidence of thrombosis. Peritoneal cavity: Moderate quantity ascites, decreased when compared with prior chest CT. Liver: Shrunken and cirrhotic. Liver cyst. No suspicious measurable mass. Portal vein appears pat ent. Splenic vein is patent. There are varices in the paraesophageal region and left upper quadrant . There is recanalization of the umbilical vein. Mesenteric veins are patent. Gallbladder and biliary tract: No radiodense calculus or dilation. Gallbladder surrounded by ascites . Pancreas: Normal density, no abnormal calcifications or inflammatory process. Spleen: Mildly enlarged, unchanged. Kidneys: Normal size, contour and axis. No radiodense stones or obstructive uropathy. No masses seen. Adrenal glands: No masses seen. Bowel: No evidence of bowel obstruction. Abdominal Aorta: Abdominal portion non-dilated. Atherosclerotic changes. Lymph nodes: Within normal limits. Bones: Degenerative changes. Stable T10 and T12 compression fractures. Soft tissues: Surgical clips again noted in the left breast. Left breast skin thickening again prese nt. Presumably post treatment changes. Diffuse body wall edema. IMPRESSION: Cirrhotic liver. Moderate quantity of ascites. No evidence of portal vein thrombosis or other venou s thrombosis. Varices. Decreased size of pleural effusion compared to prior CT. RADIATION DOSE DELIVERED: 1,668.95mGy.cm Total DLP DATA REPOSITORY: All CT scans at this facility are submitted to the National Radiology Data Registry (NRDR) Dose Index Registry (DIR) with the [employer] (ACR). RADIATION OPTIMIZATION: All CT scans at this facility use at least one of these dose optimization te chniques: automated exposure control; mA and/or kV adjustment per patient size (includes targeted exa ms where dose is matched to clinical indication); or iterative reconstruction.
[2023-01-17] MEDS: Normal Saline - Diluent 50 ML VIAL IJ (14:48)
[2023-01-17] MEDS: Omnipaque 350 MG/ML 100 ML BTL IJ (14:48)
== END 2023-01-17 01:26 ==
LOC: DI 01:06
PROVIDERS: PCP Family Medicine; Visit Provider Nurse Practitioner Adult Health
DX: K74.60 Unspecified cirrhosis of liver (principal); I81 Portal vein thrombosis; R18.8 Other ascites
CPT/HCPCS: 80053; 74170; J3490

== ENCOUNTER 2023-01-23 04:00 | Inpatient (IN) | payer MEDICARE, SELFPAY ==
[2023-01-23] VITALS (11 sets, daily range): BP systolic 80–154; BP diastolic 49–80; PULSE 77–132; RESP 16–26; TEMP 35.8–38.4; O2SAT 87–97
--- NOTE | 2023-01-23 04:00 | DI.RAD_ITS ---
Exam(s) XR CHEST 2V PA LATERAL EXAM: XR CHEST 2V PA LATERAL CLINICAL HISTORY: fever chills TECHNIQUE: 2D digital imaging was performed. COMPARISON: CR,XR XR CHEST 2V PA LATERAL from 01/05/2022 CR,XR XR PORTABLE CHEST AP from 09/23/2022 FINDINGS: Exam is limited by under penetration and lack of pulmonary inflation. Leads overlie the chest. HEART: Normal size. Aorta: Not dilated. PULMONARY VASCULATURE: Normal. LUNGS: The right LL diaphragm is elevated, similar to prior. There are compressive changes in the ad jacent vasculature and lung. Infiltrate not excluded. There are increased interstitial markings whi ch appear chronic. No definite superimposed pulmonary edema is seen. PLEURAL SPACE: Small right pleural effusion. No pneumothorax. Soft tissues: Surgical clips in the l eft axilla. BONE:Unremarkable for age. IMPRESSION: Limited exam. Small right pleural effusion. Right basilar atelectasis. Infiltrate not excluded. DATA REPOSITORY: RADIATION DOSE DELIVERED:
--- NOTE | 2023-01-23 04:10 | ED.GENADUL_ITS ---
Discharge Plan Disposition Patient Disposition: Admit to [facility] Condition: Stable Discharge Details Chief Complaint: GenMedical Clinical Impression: Pneumonia, Pleural effusion Primary Care Provider: Macarena Blankenship ED Provider: Abel Liz Home Meds and New Rx's Prescriptions: No Action milk thistle 150 mg capsule 150 mg PO DAILY Patient Comments: 01/05/22- pt unsure of dose Rx Instructions: give with meal/snack calcium carbonate [Calcium 600] 600 mg calcium (1,500 mg) tablet 600 mg PO DAILY PRN (Reason: Acid Reflux) Patient Comments: 01/05/22- pt unsure of dose furosemide 20 mg tablet 20 mg PO .COMPLEX Qty: 180 3RF Rx Instructions: 20 mg orally daily, use bid for 3 days if weight gain > 3 pounds; ursodiol 300 mg capsule 300 mg PO TID Patient Comments: TAKE ONE CAPSULE BY MOUTH THREE TIMES A DAY levetiracetam 1,000 mg tablet 1,000 mg PO BID magnesium gluconate 27 mg magnesium (500 mg) tablet 27 mg PO BID Qty: 180 3RF potassium chloride 40 mEq/15 mL liquid 40 meq PO TID Qty: 1350 12RF cholecalciferol (vitamin D3) [Vitamin D3] 2,000 UNIT capsule 1,000 unit PO DAILY albuterol sulfate [ProAir HFA] 90 mcg/actuation HFA aerosol inhaler 1 puff Inhalation Q6H PRN Qty: 3 4RF benzonatate 100 mg capsule 100 mg PO TID PRN (Reason: cough) Qty: 30 0RF Medical Decision Making 88-year-old female history of primary biliary cholangitis, ascites, diabetes, presents with fevers chills nausea vomiting that began this evening, noted to be tachycardic and hypoxic on arrival with visible rigors. Consider pneumonia bacterial nature versus viral such as COVID influenza or RSV versus other infectious etiology such as UTI or intra-abdominal infection lower suspicion for ACS PE aortic pathology; will obtain basic labs cultures chest x-ray urinalysis fluids antiemetics, viral swab, disposition and further treatment pending labs imaging and reassess 5: 42 placed on nasal cannula given oxygen saturations in the 80s, improved to the 96 on 2 L, x-ray demonstrating bilateral pleural effusion and patchy interstitial infiltrate clinical picture consistent with multifocal pneumonia, patient does have a history of ascites and pleural effusion consider related to ascites. We will start ceftriaxone and azithromycin. Admission likely 6: 17 patient resting more comfortably on nasal cannula. Evidence of bilateral pleural effusion and what appears to be multifocal pneumonia. Will admit for antibiotics O2 therapy diuresis HPI General Date/Time Provider Initiated Documentation: 01/23/23 04:01 . HPI Narrative: 88-year-old female history of primary biliary cholangitis, diabetes, presents with fevers chills nausea and vomiting that began this evening. Related Data Home Medications Medication Instructions Recorded Confirmed cholecalciferol (vitamin D3) 50 1,000 unit PO DAILY 09/01/16 01/23/23 mcg (2,000 unit) capsule (Vitamin D3) calcium carbonate 600 mg calcium 600 mg PO DAILY PRN Acid Reflux 01/05/22 01/23/23 (1,500 mg) tablet (Calcium) milk thistle 150 mg capsule 150 mg PO DAILY 01/05/22 01/23/23 albuterol sulfate 90 mcg/actuation 1 puff inhalation Q6H PRN #3 puffs 08/18/22 01/23/23 aerosol inhaler (ProAir HFA) benzonatate 100 mg capsule 100 mg PO TID PRN cough #30 caps 10/09/22 01/23/23 levetiracetam 1,000 mg tablet 1,000 mg PO BID 10/24/22 01/23/23 magnesium gluconate 27 mg 27 mg PO BID #180 tabs 10/24/22 01/23/23 magnesium (500 mg) tablet potassium chloride 40 mEq/15 mL 40 meq (15 mL) PO TID #1,350 mL 10/24/22 01/23/23 oral liquid furosemide 20 mg tablet 20 mg PO .COMPLEX #180 tabs 12/06/22 01/23/23 ursodiol 300 mg capsule 300 mg PO TID 12/06/22 01/23/23 Previous Rx's Medication Instructions Recorded albuterol sulfate 90 mcg/actuation 1 puff inhalation Q6H PRN #3 puffs 08/18/22 aerosol inhaler (ProAir HFA) benzonatate 100 mg capsule 100 mg PO TID PRN cough #30 caps 10/09/22 magnesium gluconate 27 mg 27 mg PO BID #180 tabs 10/24/22 magnesium (500 mg) tablet potassium chloride 40 mEq/15 mL 40 meq (15 mL) PO TID #1,350 mL 10/24/22 oral liquid furosemide 20 mg tablet 20 mg PO .COMPLEX #180 tabs 12/06/22 Allergies Allergy/AdvReac Type Severity Reaction Status Date / Time spironolactone AdvReac Intermediate Verified 12/06/22 10:36 red yeast rice Allergy rash Uncoded 12/06/22 10:36 General MOISES: 3 Review of Systems Narrative: Review of Systems Constitutional: Fevers, chills Eyes: negative ENT: negative Cardiovascular: negative Respiratory: negative Gastrointestinal: Nausea, vomiting : negative Musculoskeletal: negative Skin: negative Neurologic: negative Psych: negative PFSH All Active Problems (Updated 01/23/23 @ 06:18 by Abel Liz MD) Primary osteoarthritis of left knee (Acute) Injection: 08/14/22; 05/15/2022; [place]/19/2022 [place] Primary biliary cholangitis (Chronic) followed by GI [facility], associated with chronically elevated transaminases Cirrhosis (Acute) 2.2021-secondary to the primary biliary cholangitis, followed by GI at [facility] EGD with small varices in 10/2021. Pt unable to tolerate propranolol. Elevated bilirubin (Acute) Chronic due to primary biliary cholangitis Elevated LFTs (Acute) Chronic due to primary biliary cholangitis Portal hypertension with esophageal varices (Chronic) Grade 1. Documented by EGD at [facility] [id number] Grade 2 12/2022 Compression fracture of lumbar vertebra (Acute) Fe deficiency anemia (Acute) History of iron deficiency anemia. She has seen hematology and thought it was due to a mixed etiology Emphysema lung (Acute) Seizure disorder (Chronic) Protein-calorie malnutrition, moderate (Acute) Osteoporosis (Chronic) Elevated INR (Acute) Due to chronic liver disease from PBC/PBS Lymphedema (Acute) Gallstones (Acute) RUQ pain & diarrhea Essential tremor (Acute) Primary osteoarthritis of right knee (Acute) Injection: 08/14/22; 05/15/2022; 01/19/2022 ([facility] Ascites controlled with medication (Acute) Hypomagnesemia (Acute) Pneumonia (Acute) Pleural effusion (Acute) Medical History (Updated 01/23/23 @ 06:18 by Abel Liz MD) Actinic keratosis Allergy to hymenoptera venom (12/13/17) Asthma Carcinoma of left breast Invasive intraductal, on arimedex, followed by Oncology Chronic pruritus Cortical age-related cataract of both eyes (12/19/16) Cystocele and rectocele with incomplete uterovaginal prolapse Fitted with #3 Gelhorn pessary Sept 2021; pending eval at [facility] [place] poss surgery. Currently using a continence dish with knob. Persistent cystocele is present. Consultation with [facility] has been undertaken and she has an in person visit with them at the end of June,. They recommended colpocleisis. Diabetes mellitus Diverticulosis Esophageal ulcer Essential hypertension Gastric ulcer Grade II internal hemorrhoids History of aspiration pneumonia Hypercholesterolemia Hypermetropia Left inguinal hernia Obesity Osteoarthritis Palliative care patient Squamous cell carcinoma of skin of left lower extremity 3.5cm LLE Syncope Synovial cyst of left popliteal space (09/01/16) Torn rotator cuff (06/23/13) Repair rotator cuff by Dr. Kaden Escobedo 06-23-2013 Surgical History (Updated 10/24/22 @ 13:52 by Macarena Blankenship MD) Biopsy of breast (04/18/17) benign breast tissue with cyst wall Colonoscopy - IV Sedation 10 + years ago- normal Colonoscopy - MAC (12/31/17) EGD - MAC (12/31/17) ganglion, left ankle H/O inguinal hernia repair History of colpocleisis [place] colpocleisis posterior perineorrhaphy cystoscopy at [facility] 09/05/2022 Nuclear senile cataract Oseotomy (10/06/98) TONNY BILATERAL FEET Rotator Cuff Repair (06/23/13) Right with distal clavical excision Status post Mohs surgery for squamous cell carcinoma of skin Family History Mother , 88 Diabetes Essential hypertension Heart disease Hyperlipidemia Father , 63 Neoplasm BLADDER Sister Hyperlipidemia Breast cancer Brother Diabetes Essential hypertension Hyperlipidemia Neoplasm PROSTATE Prostate cancer Maternal Grandfather No problems noted. Paternal Grandfather No problems noted. Maternal Grandmother Diabetes Paternal Grandmother No problems noted. 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 Pets and animals: Yes Pets and animals: dog(s) Sexually active: No Do you think of yourself as: straight/heterosexual Current gender identity: female What is your relationship status?: How often do you talk on the phone with friends or family?: three or more times per week How often do you get together with friends or relatives?: once per week How often do you attend christian or adventist services?: decline to answer Do you belong to any clubs or organized social groups?: no Panel score (0-1 are the most socially isolated patients): 1 What type of physical activity do you participate in: none Frequency: does not exercise Nhung/Nondenominational: No preference Special nhung needs: No Seatbelt use: always Drive intox or ride w/intox regional 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 Date GA/Weeks # Preg Succ Route Wgt Sex Labor Lgth Anesth esia Location [facility] 12/13/1953 40 No Yes vaginal Female 10/12/1957 40 No Yes vaginal Male Exam Narrative Exam Narrative: Physical Examination General: alert, awake, cooperative, tremulous HEENT: normocephalic, atraumatic; PERRL, EOM intact, conjunctiva normal; no nasal discharge; moist mucous membranes, oral and pharyngeal mucosa normal, tolerating secretions Neck: supple, trachea midline; full ROM Chest: normal to inspection Respiratory: normal respiratory effort, speaking in full sentences, clear to auscultation, no wheezing, rales or rhonchi Cardiac: regular rate, regular rhythm, S1S2 intact, no murmurs rubs or gallops GI: abdomen soft, non-tender, ascites with fluid wave nonperitoneal; no palpable mass or hepatosplenomegaly Skin: no lesions, rashes or trauma appreciated; slightly dry Neuro: AAOx3, normal speech, moving all extremities Psych: Appropriate mood and affect
[2023-01-23] MEDS: Dexamethasone 10 MG/ML VIAL IVP (04:25)
[2023-01-23] MEDS: Albuterol/Ipratropium 3 ML UPD VIAL UPD (04:25)
[2023-01-23] MEDS: Ondansetron 4 MG/2 ML VIAL IVP (04:25)
[2023-01-23] MEDS: Normal Saline 500 ML 1000 ML IV (04:25)
[2023-01-23 04:31] LABS: Abs Immature Grans 0.08 10^3/uL (0.0-0.06); Basophils % 0.5; Eosinophils % 0.5; HCT 36.2 % (36.0-46.0); HGB 12.3 g/dL (11.2-15.7); Immature Grans % 0.5; Lymphocytes % 6.7; MCH 30.6 pg (27.0-33.0); MCV 90 fL (80-95); MPV 11.4 fL (8.0-11.0); Monocytes % 1.8; Platelet Count 189 10^3/uL (130-400); RBC 4.02 10^6/uL (3.93-5.22); RDW-SD 55.6 fL; WBC 17.49 10^3/uL (4.4-10.8)
[2023-01-23 04:34] LABS: Absolute Basophil Count 0.09 10^3/uL (0.0-0.2); Absolute Eosinophil Count 0.09 10^3/uL (0.0-0.7); Absolute Lymphocyte Count 1.17 10^3/uL (1.2-3.4); Absolute Monocyte Count 0.31 10^3/uL (0.1-0.8); Absolute Neutrophil Count 15.74 10^3/uL (1.2-6.7)
[2023-01-23 04:52] LABS: ALT 37 U/L (14-59); AST 75 U/L (15-37); Albumin 2.3 g/dL (3.4-5.0); Alkaline Phosphatase 206 U/L (46-116); Anion Gap 10.2 mmol/L (3-11); BUN 9 mg/dL (7-18); Bilirubin, Total 4.7 mg/dL (0.2-1.0); CO2 23.8 mmol/L (21.0-32.0); CREATININE 0.7 mg/dL (0.55-1.02); Calcium 8.9 mg/dL (8.5-10.1); Chloride 102 mmol/L (98-107); Estimated GFR 84.17 (mL/min/1.73m2); Glucose 86 mg/dL (74-106); Lipase 20 U/L (16-77); Potassium 4.4 mmol/L (3.5-5.1); Sodium 136 mmol/L (136-145); TSH (W/Ref FT4) 4.77 uIU/mL (0.36-3.74); Total Protein 7.2 g/dL (6.4-8.2)
[2023-01-23 05:03] LABS: COVID-19 PCR Negative (Negative); Influenza A PCR Negative (Negative); Influenza B PCR Negative (Negative); RSV PCR Negative (Negative)
[2023-01-23 05:12] LABS: Source Nasopharynx
[2023-01-23] MEDS: Furosemide 40 MG/4 ML VIAL IVP (06:34)
[2023-01-23] MEDS: AZITHROMYCIN 500 MG in Normal Saline 250 ML 250 MG IVPB (06:35)
[2023-01-23 06:48] LABS: Bilirubin Small (Negative); Blood Negative (Negative); Clarity Sl Cloudy (Clear); Glucose Negative (Negative); Ketones Negative (Negative); Leukocyte Esterase Negative (Negative); Nitrite Negative (Negative); Specific Gravity 1.015 (1.005-1.025)
--- NOTE | 2023-01-23 06:51 | W.PM.HP.N ---
Date of service: 01/23/23 Time of Service: 06:52 Assessment and Plan Assessment and plan (1) Pneumonia: Status: Acute Assessment and plan: Bilateral infiltrates and elevated WBC count. Procalcitonin pending. Cont Rocephin and azithromycin. IS and Acapella. Tessalon Perls prn (2) Pleural effusion: Status: Acute Assessment and plan: Dose of IV lasix administered in the ED. Cont home po lasix now. H/O thoracentesis. Monitor. (3) Primary biliary cholangitis: Status: Chronic Assessment and plan: With cirrhosis and ascites. No evidence of SBP. Cont lasix and ursodiol. (4) Cirrhosis: Status: Acute Assessment and plan: As above. (5) Emphysema lung: Status: Acute Assessment and plan: Not on any controller medication. PRN albuterol. (6) Essential hypertension: Assessment and plan: On no antihypertensives. Monitor. (7) Seizure disorder: Status: Chronic Assessment and plan: Cont keveturacetan 1000mg BID. History of Present Illness History of Present Illness Chief Complaint: Fever, Nausea and vomiting Narrative: Ms Duarte is an 88 yo female with a PMH of primary biliary cholangitis, cirrhosis, DM, Emphysema, lymphedema, essential tremor. On the evening of presentation she developed fever/chills, N/V. No CP, abd pain, diarrhea. On arrival to the ED she was rigorous and tachycardic. Temp of 38.4. HR 132. BP 154/80. RA O2 saturation of 87%; 96% on 2L NC. CXR shows infiltrates consistent with pneumonia and right pleural effusion. She was given a dose of IV lasix and initiated on azithromycin and ceftriaxone. Review of Systems All systems reviewed & are unremarkable except as noted in HPI and below PFSH All Active Problems Primary osteoarthritis of left knee (Acute) Injection: 08/14/22; 05/15/2022; 01/19/2022 ([facility]) Primary biliary cholangitis (Chronic) followed by GI [facility], associated with chronically elevated transaminases Cirrhosis (Acute) 2.2021-secondary to the primary biliary cholangitis, followed by GI at [facility] EGD with small varices in 10/2021. Pt unable to tolerate propranolol. Elevated bilirubin (Acute) Chronic due to primary biliary cholangitis Elevated LFTs (Acute) Chronic due to primary biliary cholangitis Portal hypertension with esophageal varices (Chronic) Grade 1. Documented by EGD at [facility] [id number] Grade 2 12/2022 Compression fracture of lumbar vertebra (Acute) Fe deficiency anemia (Acute) History of iron deficiency anemia. She has seen hematology and thought it was due to a mixed etiology Emphysema lung (Acute) Seizure disorder (Chronic) Protein-calorie malnutrition, moderate (Acute) Osteoporosis (Chronic) Elevated INR (Acute) Due to chronic liver disease from PBC/PBS Lymphedema (Acute) Gallstones (Acute) RUQ pain & diarrhea Essential tremor (Acute) Primary osteoarthritis of right knee (Acute) Injection: 08/14/22; 05/15/2022; 01/19/2022 ([facility]) Ascites controlled with medication (Acute) Hypomagnesemia (Acute) Pneumonia (Acute) Pleural effusion (Acute) Medical History Actinic keratosis Allergy to hymenoptera venom (12/13/17) Asthma Carcinoma of left breast Invasive intraductal, on arimedex, followed by Oncology Chronic pruritus Cortical age-related cataract of both eyes (12/19/16) Cystocele and rectocele with incomplete uterovaginal prolapse Fitted with #3 Gelhorn pessary Sept 2021; pending eval at [facility] for poss surgery. Currently using a continence dish with knob. Persistent cystocele is present. Consultation with [facility] has been undertaken and she has an in person visit with them at the end of June,. They recommended colpocleisis. Diabetes mellitus Diverticulosis Esophageal ulcer Essential hypertension Gastric ulcer Grade II internal hemorrhoids History of aspiration pneumonia Hypercholesterolemia Hypermetropia Left inguinal hernia Obesity Osteoarthritis Palliative care patient Squamous cell carcinoma of skin of left lower extremity 3.5cm LLE Syncope Synovial cyst of left popliteal space (09/01/16) Torn rotator cuff (06/23/13) Repair rotator cuff by Dr. Kaden Escobedo 06-23-2013 Surgical History Biopsy of breast (04/18/17) benign breast tissue with cyst wall Colonoscopy - IV Sedation 10 + years ago- normal Colonoscopy - MAC (12/31/17) EGD - MAC (12/31/17) ganglion, left ankle H/O inguinal hernia repair History of colpocleisis LeFort colpocleisis posterior perineorrhaphy cystoscopy at [facility] 09/05/2022 Nuclear senile cataract Oseotomy (10/06/98) TONNY BILATERAL FEET Rotator Cuff Repair (06/23/13) Right with distal clavical excision Status post Mohs surgery for squamous cell carcinoma of skin Family History Mother , 88 Diabetes Essential hypertension Heart disease Hyperlipidemia Father , 63 Neoplasm BLADDER Sister Hyperlipidemia Breast cancer Brother Diabetes Essential hypertension Hyperlipidemia Neoplasm PROSTATE Prostate cancer Maternal Grandfather No problems noted. Paternal Grandfather No problems noted. Maternal Grandmother Diabetes Paternal Grandmother No problems noted. 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 Pets and animals: Yes Pets and animals: dog(s) Sexually active: No Do you think of yourself as: straight/heterosexual Current gender identity: female What is your relationship status?: How often do you talk on the phone with friends or family?: three or more times per week How often do you get together with friends or relatives?: once per week How often do you attend restorationist or quaker services?: decline to answer Do you belong to any clubs or organized social groups?: no Panel score (0-1 are the most socially isolated patients): 1 What type of physical activity do you participate in: none Frequency: does not exercise Nhung/Mu-Ism: No preference Special nhung needs: No Seatbelt use: always Drive intox or ride w/intox 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 Date GA/Weeks # Preg Succ Route Wgt Sex Labor Lgth Anesthesia Location Prov Complic 12/13/1955 40 No Yes vaginal Female 10/12/1959 40 No Yes vaginal Male Meds Allergies and Home Medications Allergies Allergy/AdvReac Type Severity Reaction Status Date / Time spironolactone AdvReac Intermediate Verified 12/06/22 10:36 red yeast rice Allergy rash Uncoded 12/06/22 10:36 Home Medications Medication Instructions Recorded Confirmed Type cholecalciferol (vitamin D3) 50 1,000 unit PO DAILY 09/01/16 01/23/23 History mcg (2,000 unit) capsule (Vitamin D3) calcium carbonate 600 mg calcium 600 mg PO DAILY PRN Acid Reflux 01/05/22 01/23/23 History (1,500 mg) tablet (Calcium) milk thistle 150 mg capsule 150 mg PO DAILY 01/05/22 01/23/23 History albuterol sulfate 90 mcg/actuation 1 puff inhalation Q6H PRN #3 puffs 08/18/22 01/23/23 Rx aerosol inhaler (ProAir HFA) benzonatate 100 mg capsule 100 mg PO TID PRN cough #30 caps 10/09/22 01/23/23 Rx levetiracetam 1,000 mg tablet 1,000 mg PO BID 10/24/22 01/23/23 History magnesium gluconate 27 mg 27 mg PO BID #180 tabs 10/24/22 01/23/23 Rx magnesium (500 mg) tablet potassium chloride 40 mEq/15 mL 40 meq (15 mL) PO TID #1,350 mL 10/24/22 01/23/23 Rx oral liquid furosemide 20 mg tablet 20 mg PO .COMPLEX #180 tabs 12/06/22 01/23/23 Rx ursodiol 300 mg capsule 300 mg PO TID 12/06/22 01/23/23 History Exam Narrative Exam Narrative: Gen: Lying supine. Mild use of accessory muscles with breathing. Pleasant and cooerative. HEENT: sclera clear. MMM Neck: No JVD Lungs: Diminished breath sounds in bases. No rhonchi/wheezes. CV: RRR, no murmur Abd: softly distended. NT. + fluid wave. Lower midabd wall hernia. Exts: No edema or calf tenderness. Psych: Affect appropriate. A&O x 3. Results Labs 01/23/23 04:19 01/23/23 04:19 Labs: Laboratory Results - last 24 hr 01/23/23 01/23/23 01/23/23 04:19 04:19 04:19 WBC 17.49 H RBC 4.02 Hgb 12.3 Hct 36.2 MCV 90 MCH 30.6 MCHC 34.0 RDW 17.0 H Plt Count 189 MPV 11.4 H Immature Gran % 0.5 Neutrophils % 90.0 Lymphocytes % 6.7 Monocytes % 1.8 Eosinophils % 0.5 Basophils % 0.5 Nucleated RBC % 0.0 Absolute Neutrophils 15.74 H Absolute Lymphocytes 1.17 L Absolute Monocytes 0.31 Absolute Eosinophils 0.09 Absolute Basophils 0.09 Sodium 136 Potassium 4.4 Chloride 102 Carbon Dioxide 23.8 Anion Gap 10.2 BUN 9 Creatinine 0.7 Est GFR (CKD-EPI 2020) 84.17 Glucose 86 Calcium 8.9 Total Bilirubin 4.7 H AST 75 H ALT 37 Alkaline Phosphatase 206 H Total Protein 7.2 Albumin 2.3 L Lipase 20 TSH 4.77 H Free T4 1.40 COVID-19 Source Nasopharynx SARS-CoV-2 (PCR) Negative Influenza Type A (PCR) Negative Influenza Type B (PCR) Negative RSV (PCR) Negative Last Vital Signs Temp 38.1 C H 01/23/23 06:48 Pulse 112 H 01/23/23 06:48 Resp 26 H 01/23/23 05:23 BP 119/53 L 01/23/23 05:23 Pulse Ox 96 01/23/23 05:23 Time Spent Time spent with Patient: 40-54 minutes Time was spent: preparing to see the patient(eg.review tests), obtaining and/or reviewing separately otained hiistory, ordering medications,tests, procedures, referring, communicating with other health attending ambulatory care, indepentently interpreting results, counseling the patient and care coordination
--- NOTE | 2023-01-23 07:07 | DI.VRAD_ITS ---
PROCEDURE INFORMATION: Exam: XR Chest Exam date and time: 01/23/2023 5:32 AM Age: 88 years old Clinical indication: Cough and fever TECHNIQUE: Imaging protocol: Radiologic exam of the chest. Views: 2 views. COMPARISON: CR XR PORTABLE CHEST AP 09/23/2022 7:05 PM FINDINGS: Limitations: Low lung volumes. Lungs: Prominence of the central pulmonary vasculature. Mild bilateral reticulonodular infiltrates, left slightly greater than right. Pleural spaces: Trace bilateral pleural effusions. No pneumothorax. Heart/Mediastinum: Prominence of the cardiac silhouette. Bones/joints: Unremarkable. Soft tissues: Surgical clips left axilla. IMPRESSION: 1. Mild bilateral reticulonodular infiltrates. This finding may be infectious/inflammatory in nature and/or due to mild interstitial edema. 2. Trace bilateral pleural effusions. Dictated and Authenticated by: Mady Thomason MD. Ordering:KB Roman MD
[2023-01-23 07:27] LABS: Lab Add On Test DONE
[2023-01-23 07:56] LABS: Magnesium 1.6 mg/dL (1.8-2.4)
[2023-01-23 08:04] LABS: Lab Add On Test DONE
[2023-01-23] MEDS: Ursodiol 300 MG CAP PO ×3 (09:12→19:45)
[2023-01-23] MEDS: Cholecalciferol (Vitamin D3) 1,000 UNIT TAB 1000 UNITS PO (09:12)
[2023-01-23] MEDS: levETIRAcetam 500 MG TAB 1000 MG PO ×2 (09:12→19:44)
[2023-01-23] MEDS: Magnesium Gluconate 500 MG TAB PO ×2 (09:13→19:45)
[2023-01-23] MEDS: Enoxaparin 40 MG/0.4 ML SYR SC (09:13)
[2023-01-23] MEDS: cefTRIAXone 2 GM/50 ML BAG IVPB (09:14)
--- NOTE | 2023-01-23 09:34 | PDOC.CMIN ---
Date of service: 01/23/23 Time of Service: 09:34 Care Management Initial Assmt Initial Assessment REASON FOR HOSPITALIZATION:: Pneumonia. pleural effusion PREVIOUS FUNCTIONAL STATUS/SOCIAL/FAMILY SUPPORTS:: Elina lives alone in a single family home in [place]. Her daughter Yaneli lives next door and her son Chon lives 5 miles away, both are very supportive. She also has 3 grandchildren who are also helpful. Elina reports that she is independent with her ADL's at baseline and drives. 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 Elina uses a Walker occasionally when she leave her house. CURRENT FUNCTIONAL STATUS:: Elina is sitting in her recliner visiting with her Daughter Yaneli when CM met with her. She does not have supplement O2 at home. Elina is familiar with [facility] and receives MOW. She would really like to have her lower teeth fixed and help paying the bill for her new glasses and contacted [facility], but unfortunately there is no funding. ADVANCE DIRECTIVES:: HCA is Chon Duarte, alt is Yaneli Carmen Has patient been provided with info about the portal/API?: Yes Did the patient sign up for the portal?: Yes (Prior to admission) CODE STATUS:: Full Code INSURANCE COVERAGE / FINANCIAL ISSUES:: Medicare Financial Assist 100 CURRENT HOME/COMMUNITY SERVICES/EQUIPMENT:: Uses a walker PRN MOW PRIMARY CARE PHYSICIAN:: Macarena Blankenship POTENTIAL DISCHARGE NEEDS:: Follow up appointment, PATIENT/FAMILY EDUCATION NEEDS:: Review discharge instructions including activity, limitations, diet, medications, follow up plan and discuss Ask Me Three TRANSPORTATION:: via private vehicle with Son Marcus PLAN:: Anticipate, Elina will discharge home via private vehicle with her son Marcus when medically cleared by Hospitalist. New [facility] services will be ordered if needed. Palliative consult pending. She may benefit from a PT referral. PFSH All Active Problems Primary osteoarthritis of left knee (Acute) Injection: 08/14/22; 05/15/2022; 01/19/2022 ([facility] [place]) Primary biliary cholangitis (Chronic) followed by GI [facility] [place], associated with chronically elevated transaminases Cirrhosis (Acute) 2.2021-secondary to the primary biliary cholangitis, followed by GI at [facility] EGD with small varices in 10/2021. Pt unable to tolerate propranolol. Elevated bilirubin (Acute) Chronic due to primary biliary cholangitis Elevated LFTs (Acute) Chronic due to primary biliary cholangitis Portal hypertension with esophageal varices (Chronic) Grade 1. Documented by EGD at [facility] [place] [id number] Grade 2 12/2022 Compression fracture of lumbar vertebra (Acute) Fe deficiency anemia (Acute) History of iron deficiency anemia. She has seen hematology and thought it was due to a mixed etiology Emphysema lung (Acute) Seizure disorder (Chronic) Protein-calorie malnutrition, moderate (Acute) Osteoporosis (Chronic) Elevated INR (Acute) Due to chronic liver disease from PBC/PBS Lymphedema (Acute) Gallstones (Acute) RUQ pain & diarrhea Essential tremor (Acute) Primary osteoarthritis of right knee (Acute) Injection: 08/14/22; 05/15/2022; 01/19/2022 ([facility] [place]) Ascites controlled with medication (Acute) Hypomagnesemia (Acute) Pneumonia (Acute) Pleural effusion (Acute) Medical History Actinic keratosis Allergy to hymenoptera venom (12/13/17) Asthma Carcinoma of left breast Invasive intraductal, on arimedex, followed by Oncology Chronic pruritus Cortical age-related cataract of both eyes (12/19/16) Cystocele and rectocele with incomplete uterovaginal prolapse Fitted with #3 Gelhorn pessary Sept 2021; pending eval at [facility] [place] for poss surgery. Currently using a continence dish with knob. Persistent cystocele is present. Consultation with [facility] has been undertaken and she has an in person visit with them at the end of June,. They recommended colpocleisis. Diabetes mellitus Diverticulosis Esophageal ulcer Essential hypertension Gastric ulcer Grade II internal hemorrhoids History of aspiration pneumonia Hypercholesterolemia Hypermetropia Left inguinal hernia Obesity Osteoarthritis Palliative care patient Squamous cell carcinoma of skin of left lower extremity 3.5cm LLE Syncope Synovial cyst of left popliteal space (09/01/16) Torn rotator cuff (06/23/13) Repair rotator cuff by Dr. Kaden Escobedo 06-23-2013 Surgical History Biopsy of breast (04/18/17) benign breast tissue with cyst wall Colonoscopy - IV Sedation 10 + years ago- normal Colonoscopy - MAC (12/31/17) EGD - MAC (12/31/17) ganglion, left ankle H/O inguinal hernia repair History of colpocleisis LeFort colpocleisis posterior perineorrhaphy cystoscopy at [facility] 09/05/2022 Nuclear senile cataract Oseotomy (10/06/98) TONNY BILATERAL FEET Rotator Cuff Repair (06/23/13) Right with distal clavical excision Status post Mohs surgery for squamous cell carcinoma of skin Family History Mother , 88 Diabetes Essential hypertension Heart disease Hyperlipidemia Father , 63 Neoplasm BLADDER Sister Hyperlipidemia Breast cancer Brother Diabetes Essential hypertension Hyperlipidemia Neoplasm PROSTATE Prostate cancer Maternal Grandfather No problems noted. Paternal Grandfather No problems noted. Maternal Grandmother Diabetes Paternal Grandmother No problems noted. 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 Pets and animals: Yes Pets and animals: dog(s) Sexually active: No Do you think of yourself as: straight/heterosexual Current gender identity: female What is your relationship status?: How often do you talk on the phone with friends or family?: three or more times per week How often do you get together with friends or relatives?: once per week How often do you attend protestant or alevism services?: decline to answer Do you belong to any clubs or organized social groups?: no Panel score (0-1 are the most socially isolated patients): 1 What type of physical activity do you participate in: none Frequency: does not exercise Nhung/Denominational: No preference Special nhung needs: No Seatbelt use: always Drive intox or ride w/intox public transit trolley 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 Date GA/Weeks # Preg Succ Route Wgt Sex Labor Lgth Anesthesia Location Prov Complic 12/13/1955 40 No Yes vaginal Female 10/12/1959 40 No Yes vaginal Male
[2023-01-23 09:43] LABS: Procalcitonin 4.8 ng/mL
--- NOTE | 2023-01-23 10:04 | RESPIRATORY ---
RT spoke with patient concerning if she uses home oxygen, patient does not use home O2.
[2023-01-23] MEDS: Loperamide 2 MG CAP PO (12:48)
--- NOTE | 2023-01-23 15:52 | PHA.REVIEW2 ---
Pharmacy Admission Review - Admission Clinical Review (Last Reviewed 01/23/23 @ 07:51 by Abel Guzmán MD) Cirrhosis (Acute) Emphysema lung (Acute) Pneumonia (Acute) Pleural effusion (Acute) spironolactone Adverse Reaction (Intermediate, Verified 12/06/22 10:36) red yeast rice Allergy (Uncoded 12/06/22 10:36) rash Resuscitation Status Full Code Height 5 ft 3 in Weight 54.431 kg - Renal Dosing Renal Dosing: BUN 9 mg/dL (7-18) 01/23/23 04:19 Creatinine 0.7 mg/dL (0.55-1.02) 01/23/23 04:19 Medications needing adjustments: Reviewed (eCrCl 35 ml/min, all orders ok) - Anticoagulation Anticoagulation: Hgb 12.3 g/dL (11.2-15.7) 01/23/23 04:19 Hct 36.2 % (36.0-46.0) 01/23/23 04:19 Plt Count 189 10^3/uL (130-400) 01/23/23 04:19 Creatinine 0.7 mg/dL (0.55-1.02) 01/23/23 04:19 DVT Prophylaxis: Reviewed Medications: Enoxaparin - Opiate Usage Evaluate Pain Scale/Pains Meds: N/A - Relevant Labs Sodium 136 mmol/L (136-145) 01/23/23 04:19 Potassium 4.4 mmol/L (3.5-5.1) 01/23/23 04:19 Chloride 102 mmol/L (98-107) 01/23/23 04:19 Magnesium 1.6 mg/dL (1.8-2.4) L 01/23/23 04:19 Electrolytes, C-Reactive P, ESR: Reviewed (mag PO BID ordered) - DM Control DM Control: Glucose 86 mg/dL (74-106) 01/23/23 04:19 DM Control: N/A - Cardiac Review BP, HR, EF%: Reviewed - Qtc Review QTc: N/A - IV to PO Switch IV Medications: Reviewed - Home Meds Home Med List reviewed: Reviewed Relevent Home Meds Not ordered & why?: not ordered: furosemide, potassium (current level well WNL, will order if needs to be replaced) - Current meds Current Medication Order Review: Reviewed (azithromycin + ceftriaxone for pneumonia (day 1))
[2023-01-23] MEDS: Acetaminophen 325 MG TAB PO (19:46)
[2023-01-23] MEDS: Mylanta Suspension 30 ML CUP PO (21:41)
[2023-01-23] MEDS: Water,Injection,Sterile 10 ML VIAL (21:41)
[2023-01-23] MEDS: VANCOMYCIN 1,250 MG in Normal Saline 250 ML 166.667 MG IVPB (21:46)
[2023-01-24 07:16] LABS: Absolute Basophil Count 0.04 10^3/uL (0.0-0.2); Absolute Lymphocyte Count 0.85 10^3/uL (1.2-3.4); Absolute Monocyte Count 0.68 10^3/uL (0.1-0.8); Absolute Neutrophil Count 16.33 10^3/uL (1.2-6.7); Basophils % 0.2; HGB 9.7 g/dL (11.2-15.7); Immature Grans % 0.6; Lymphocytes % 4.7; MCH 30.7 pg (27.0-33.0); MCHC 33.4 % (32.0-36.0); MCV 92 fL (80-95); MPV 11.6 fL (8.0-11.0); Monocytes % 3.8; Neutrophils % 90.7; Platelet Count 134 10^3/uL (130-400); RBC 3.16 10^6/uL (3.93-5.22); RDW 16.6 % (11.7-14.6); RDW-SD 55.7 fL
[2023-01-24 07:33] VITALS: O2SAT 98
[2023-01-24 07:39] VITALS: O2SAT 95
[2023-01-24 07:39] LABS: ALT 31 U/L (14-59); AST 47 U/L (15-37); Albumin 1.7 g/dL (3.4-5.0); Alkaline Phosphatase 155 U/L (46-116); Anion Gap 4.1 mmol/L (3-11); BUN 20 mg/dL (7-18); Bilirubin, Total 2.2 mg/dL (0.2-1.0); CO2 29.9 mmol/L (21.0-32.0); CREATININE 0.8 mg/dL (0.55-1.02); Calcium 8.1 mg/dL (8.5-10.1); Chloride 105 mmol/L (98-107); Estimated GFR 71.71 (mL/min/1.73m2); Glucose 143 mg/dL (74-106); Potassium 4.9 mmol/L (3.5-5.1); Sodium 139 mmol/L (136-145); Total Protein 5.7 g/dL (6.4-8.2)
[2023-01-24 07:49] VITALS: BP 96/62; PULSE 72; RESP 17; TEMP 36.4; O2SAT 91
[2023-01-24] MEDS: levETIRAcetam 500 MG TAB 1000 MG PO ×2 (08:02→20:05)
[2023-01-24] MEDS: Ursodiol 300 MG CAP PO ×3 (08:02→20:04)
[2023-01-24] MEDS: Azithromycin 250 MG TAB PO (08:02)
[2023-01-24] MEDS: Magnesium Gluconate 500 MG TAB PO ×2 (08:02→20:04)
[2023-01-24] MEDS: Cholecalciferol (Vitamin D3) 1,000 UNIT TAB 1000 UNITS PO (08:03)
[2023-01-24] MEDS: Enoxaparin 40 MG/0.4 ML SYR SC (08:03)
[2023-01-24] MEDS: cefTRIAXone 2 GM/50 ML BAG IVPB (08:03)
--- NOTE | 2023-01-24 09:33 | CMPROGNOTE_ITS ---
Date of service: 01/24/23 Time of Service: 09:33 Care Management Progress Note Progress Note Text Progress Note Text: S/O: Elina is was sitting in her chair sleeping each time CM attempted to meet with her today. She is being closely monitored and treated with IV ceftiaxone and vanco for pneumonia and GPC bacteremia. Per provider she will need 6 weeks of IV ABX if she doesn't have a ENRIQUETA. Patient received Reiki today, and met with Palliative. PT recommends home with no services when medically ready. CM will follow. A: 88 year old female admitted to [facility] on 01/23/23 for Pneumonia. pleural effusion P: Anticipate, Elina will discharge home via private vehicle with her son Marcus when medically cleared by Hospitalist. May need Coordination of nursing home IV ABX. New [facility] RN if needs home IV therapy. Outpatient PT is not indicated at this time.
--- NOTE | 2023-01-24 10:16 | IN_ITS ---
PT Notes Visit Reasons: Pneumonia,Pleural Effusion Inpatient Physical Therapy Evaluation Date: 01/24/2023 Referring Doctor: David Molina PT Orders: PT CONSULT: weakness Precautions: Standard, fall risk Patient Profile/Admitting Diagnosis: Pneumonia/pleural effussion Ms Duarte is an 88 yo female with a PMH of primary biliary cholangitis, cirrhosis, DM, Emphysema, lymphedema, essential tremor. She presented to ED 01/23/23 with fever and chills and CXR showing pneumonia and right pleural effusion. PMHX: []All Active Problems? Primary osteoarthritis of left knee (Acute) Injection: 08/14/22; 05/15/2022; [place]Primary biliary cholangitis (Chronic) followed by [place] [facility], associated? with chronically elevated transaminasesCirrhosis (Acute) 2.2021-secondary to the primary biliary cholangitis, followed by [facility] at [facility] EGD with small varices in 10/2021.? Pt unable to tolerate propranolol.Elevated bilirubin (Acute) Chronic due to primary biliary cholangitisElevated LFTs (Acute) Chronic due to primary biliary cholangitisPortal hypertension with esophageal varices (Chronic) Grade 1.? Documented by [place]GD at [facility] [id number] Grade 2 ompression fracture of lumbar vertebra (Acute) Fe deficiency anemia (Acute) History of iron deficiency anemia.? She has seen hematology and thought it was due to a mixed etiologyEmphysema lung (Acute) Seizure disorder (Chronic) Protein-calorie malnutrition, moderate (Acute) Osteoporosis (Chronic) Elevated INR (Acute) Due to chronic liver disease from PBC/PBSLymphedema (Acute) Gallstones (Acute) RUQ pain & diarrheaEssential tremor (Acute) Primary osteoarthritis of right knee (Acute) Injection: 08/14/22; 05/15/2022; 01/19/2022 [place]Ascites controlled with medication (Acute) Hypomagnesemia (Acute) Pneumonia (Acute) Pleural effusion (Acute) Medical History? Actinic keratosis Allergy to hymenoptera venom (12/13/17) Asthma Carcinoma of left breast Invasive intraductal, on arimedex, followed by OncologyChronic pruritus Cortical age-related cataract of both eyes (12/19/16) Cystocele and rectocele with incomplete uterovaginal prolapse Fitted with #3 Gelhorn pessary Feb 2022; pending eval at [facility] [place] poss [place]. Currently using a continence dish with knob.? Persistent cystocele is present.? Consultation with [facility] has been undertaken and she has an in person visit with them at the end of June,.? They recommended colpocleisis.Diabetes mellitus Diverticulosis Esophageal ulcer Essential hypertension Gastric ulcer Grade II internal hemorrhoids History of aspiration pneumonia Hypercholesterolemia Hypermetropia Left inguinal hernia Obesity Osteoarthritis Palliative care patient Squamous cell carcinoma of skin of left lower extremity 3.5cm LLESyncope Synovial cyst of left popliteal space (09/01/16) Torn rotator cuff (06/23/13) Repair rotator cuff by Dr. 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 Has 2 children living nearby and helpful grandchildren. Reports using a walker prn outside of home. 1 step getting into home. Single floor living. 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 Does not walk outside due to uneven surface and safety. Equipment Owned/DME: RW Subjective: I have to call for help to go to the bathroom and they make me use the O2. My O2 is usually 95% on RA Objective: General Observation: Sitting in chair on 1L n/c O2 Mental Status: A and O x3 full conversation. Pain: 0/10 Vital Signs: O2 1L n/c 96%, after ambulation 50' without O2 90%, 100' 87%. returned O2 and back to 95% ROM: Right Upper Extremity: WNL Left Upper Extremity: WNL Right Lower Extremity: WNL Left Lower Extremity: WNL Strength: Right Upper Extremity: WNL Left Upper Extremity: WNL Right Lower Extremity: WNL Left Lower Extremity: WNL Sensation: Normal sensation Bed Mobility/Transfers: Independent with VC for hand placement chair to RW, RW to chair once patient understands and placement independent. Gait: Ambulates with RW with supervision 1 X 50 feet, 1X 100 feet with RA and O2 measured at 90% return to room with 1 L NC O2 and O2 sat returned to 95% Balance: Static Sitting: Normal Dynamic Sitting: Normal Static Standing: Good Dynamic Standing: Poor?fair unable to stand on single-leg for greater than 1 seconds Special Tests: Mobility Limitations Standardized Measure [facility] AM-PAC 6 clicks Basic Mobility Inpatient Short Form: Raw Score: 24 CMS Score: 100% Informed Consent/Education: Patient instructed in purpose of PT consult and plan of care. Assessment: Patient is a 88 year old female referred to physical therapy services with the diagnosis of pneumonia. Patient presents with clinical signs and symptoms consistent with pneumonia, as demonstrated by the following impairment level findings: Drop in O2 sat on RA with ambulation. Impairments are contributing to the following functional limitations: AMPAC score. Patient is assessed as a Low 22292 complexity based on the following: Plan of Care/Treatment Plan: Recommend ambulation with O2 frequently by nursing staff. Patient is safe with transfers and ambulation. DISCHARGE RECOMMENDATIONS: [] [x] Home with no services [] TREATMENT CODE/TIME: 17633 10:15-10:45
--- NOTE | 2023-01-24 10:29 | W.PALLCONSUL ---
Date of service: 01/24/23 Time of Service: 15:18 History of Present Illness Narrative: Elina Duarte is an 88-year-old woman with primary biliary cholangitis (dx 2019), (leading to cirrhosis with ascites and esophageal varices), asthma, seizure disorder, history of breast cancer, mild cognitive impairment, type 2 diabetes, hypertension, iron deficiency anemia, osteoporosis,, essential tremor and protein calorie malnutrition. Yesterday evening she presented to [facility] emergency department after developing fevers and chills with nausea and vomiting. Upon arrival she was febrile to 38 degrees, tachycardic, hypoxic, and had elevated white count to 18,000. She was diagnosed with bibasilar pneumonia and right pleural effusion. Susequently blood cultures are positive. She was admitted and started on antibiotics and received intravenous diuretics. Patient has only had 1 other urgent hospital admission in the past 12 months (September 2022). At that time she presented with dyspnea and hypoxia resulting from a large right pleural effusion. Underwent thoracentesis (therapeutic only) and was able to be discharged without oxygen. During that hospital admission, Elina and her family met with Dr. Zazueta to go over goals of care and CODE STATUS. Elina was very clear at that time that she wanted CPR attempted should her heart stop. Family was not sure that she understood what CPR entailed, even after description by Dr. Zazueta. Family felt that if she wanted to have CPR and that she would should remain full code. Additional information from hospitalist Dr. Rehman that patient was quite ill with COVID 2 years ago, with significant cognitive effects; Dr. Rehman happily reports that patient's cognition appears to have totally recovered. Patient also reports repair of pelvic prolapse over the winter (which proceeded without complication) and upper endoscopy last month (she is not met with hospice social worker at [facility] to discuss results yet) Care Team: Primary Care physician: Dr. Blankenship Gastroenterology: [facility] GI. Note in chart last EGD 12/31 with grade 2 esophageal varices neurology: Mikala Hernandez (seizure disorder, mild cognitive impairment, essential tremor) Breast Cancer f/u: [facility] Social HX: Patient lives alone in her home in [place]. Daughter Yaneli lives next door (but she has PArkinson's Dz and is not doing well) and son hCon lives 5 miles away. 3 grandchildren. [id number] is helpful(brings newspaper and food). Sisters and brother live nearby Patient reports that she continues to drive, do her own shopping and housework. The only thing she does not do is get on ladders to hang curtains and wash windows. 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 Hobbies: Plays cards every Tuesdays with her 6 living sisters Additional services: -Meals on Wheels -Connected with [place] [facility] Impression of currents health status: Was feeling pretty good until I found out about the bacteria in my blood What bothers you the most: Breathing was getting worse over the last week, poor balance for a year or so What worries you the most: The bacteria in my blood. Goals: -to be able to go home and resume doing her housework Function: Ambulation: Bad balance since COVID in 2020. Does not use a walker (has one at home) . Occasionally uses a cane. ADLs: Independent iADLs: Independent, drives Hearing: OK Vision:OK Cognition: Falls: No falls. Palliative Performance Scale % Ambulation Activity and Evidence of Disease Self Care Intake Level of Consciousness 100 Full Normal activity, no evidence of disease Full Normal Full 90 Full Normal activity, some evidence of disease Full Normal Full 80 Full Normal activity with effort, some evidence of disease Full Normal or reduced Full 70 Reduced Unable to do normal work, some evidence of disease Full Normal or reduced Full 60 Reduced Unable to do hobby or some housework, significant disease Occasional assist necessary Normal or reduced Full or confusion 50 Mainly sit/lie Unable to do any work, extensive disease Considerable assistance required Normal or reduced Full or confusion 40 Mainly in bed Unable to do any work, extensive disease Mainly assistance Normal or reduced Full, drowsy, or confusion 30 Totally bed bound Unable to do any work, extensive disease Total care Reduced Full, drowsy, or confusion 20 Totally bed bound Unable to do any work, extensive disease Total care Minimal sips Full, drowsy, or confusion 10 Totally bed bound Unable to do any work, extensive disease Total care Mouth care only Drowsy or coma 0 - - - - Patient Score: 80 Spiritual history: Not a presybeterian goer. Coping: Not a stressed person. Palliative review of systems: Gets tired easily. Pain: Abd occasionally hurts after heavy lifting (she attributes to hernia). Arthritis all over (uses tylenol) Dyspnea: GI symptoms: Ascites is better than it was Appetite: is Good. Depression:None Anxiety: None Emotional Distress: Spiritual/Existential Distress: Labs: Cr: 0.8 Bilirubin 1.1 Liver panel: AST 47/75 (usual range);ALT normal (usual range) Albumin: CBC: Hemoglobin 9.7 today (12.3 yesterday); white count 18,000, platelets 134 K INR: 1.3 Child Adorno CirrhosisClass 1 MELD score 10 Advanced Care Planning: Advanced Directive: August 2022 advanced directive on file, reviewed Health Care Agent: Son Chon Duarte, also DURABLE POWER OF ORDNANCE MECHANIC. See advanced directive on file COLST: Patient was full code, switch to DNR with trial of intubation today, see assessment/plan. Previously wanted limited trial of intubation and feeding tube (2 weeks), transfer treat and use antibiotics Limitations: Assessment and Plan Assessment and plan (1) Palliative care patient: Assessment and plan: Most of today's visit was spent reviewing goals of care, current and potentially future medical issues, exploring her current advance care planning documents. Ms. Duarte is totally independent prior to this hospitalization and more remarkably so given her comorbidities. If anything, her ascites has improved over the last 4 months. She has large supportive family living nearby. We spent most of the visit discussing her goals and reviewing her advance care planning documents. There has been some change in her thinking. She shares that she is thought about CPR and now realizes she does not want CPR; if her heart stops she feels that would indicate the end of her life. However if she should have respiratory failure, she would want a time-limited trial of intubation. We did not discuss feeding tube today (previously she wanted time-limited trial of feeding tube if offered). I alana up a COLST reflecting this today and updated CODE STATUS in hospital electronic medical record. Attempted to call her son to discuss as well but he was unavailable. Her most important goal is to return home and resume her regular activities. We briefly touched on the fact that given positive blood cultures, she will likely need prolonged period of antibiotics. Depending upon culture results, she may need to remain in a facility during this time to receive those antibiotics. Interesting to note that patient is quite concerned about her balance since having COVID. However she has had no falls. She also shares that physical therapy told her I do not need PT . Since we are anticipating a longer hospitalization due to need for prolonged antibiotic course, both of us are hoping that PT does see her on a regular basis to help her maintain her strength. Palliative Care Team plans to follow-up with patient in a month, and we will see her wherever she is at that time. Please call us sooner if you would like to see her before that time. (2) Advanced care planning/counseling discussion: Status: Acute Assessment and plan: 16 to 30 minutes spent today on Advance Care Planning. Patient and family participated voluntarily. Advance care planning may include (not limited to) explanation and discussion of advance directives, choosing and appointing healthcare agents, alternatives to various ACP tools, discussion of (and if indicated, completion of) COLST form, discussion of patient's values and overall goals for treatment, palliative and disease directive care options, ways to avoid hospital readmission including hospice discussions, care preferences should the patient's several other adverse health events.See today's palliative care note for additional information. (3) Primary biliary cholangitis: Status: Chronic (4) Cirrhosis: Status: Acute (5) Pneumonia: Status: Acute (6) Pleural effusion: Status: Acute PFSH All Active Problems (Updated 01/24/23 @ 13:34 by Mariel Rehman MD) Sepsis (Acute) Discharge planning issues (Acute) DVT prophylaxis (Acute) Hypoxia (Acute) Gram-positive cocci bacteremia (Acute) Advanced care planning/counseling discussion (Acute) Primary osteoarthritis of left knee (Acute) Injection: 08/14/22; 05/15/2022; [place]19/20[place] Primary biliary cholangitis (Chronic) followed by GI [facility], associated with chronically elevated transaminases Cirrhosis (Acute) -secondary to the primary biliary cholangitis, followed by GI at [facility] EGD with small varices in 10/2021. Pt unable to tolerate propranolol. Elevated bilirubin (Acute) Chronic due to primary biliary cholangitis Elevated LFTs (Acute) Chronic due to primary biliary cholangitis Portal hypertension with esophageal varices (Chronic) Grade 1. Documented by EGD [place] [facility] 202122 Grade 2 12/2022 Compression fracture of lumbar vertebra (Acute) Fe deficiency anemia (Acute) History of iron deficiency anemia. She has seen hematology and thought it was due to a mixed etiology Emphysema lung (Acute) Seizure disorder (Chronic) Protein-calorie malnutrition, moderate (Acute) Osteoporosis (Chronic) Elevated INR (Acute) Due to chronic liver disease from PBC/PBS Lymphedema (Acute) Gallstones (Acute) RUQ pain & diarrhea Essential tremor (Acute) Primary osteoarthritis of right knee (Acute) Injection: 08/14/22; 05/15/2022; 01/19/2022 [place] Ascites controlled with medication (Acute) Hypomagnesemia (Acute) Pneumonia (Acute) Pleural effusion (Acute) Medical History Actinic keratosis Allergy to hymenoptera venom (12/13/17) Asthma Carcinoma of left breast Invasive intraductal, on arimedex, followed by Oncology Chronic pruritus Cortical age-related cataract of both eyes (12/19/16) Cystocele and rectocele with incomplete uterovaginal prolapse Fitted with #3 Gelhorn pessary Sept 2021; pending eval at [facility] [place] poss [place]. Currently using a continence dish with knob. Persistent cystocele is present. Consultation with [facility] has been undertaken and she has an in person visit with them at the end of June,. They recommended colpocleisis. Diabetes mellitus Diverticulosis Esophageal ulcer Essential hypertension Gastric ulcer Grade II internal hemorrhoids History of aspiration pneumonia Hypercholesterolemia Hypermetropia Left inguinal hernia Obesity Osteoarthritis Palliative care patient Squamous cell carcinoma of skin of left lower extremity 3.5cm LLE Syncope Synovial cyst of left popliteal space (09/01/16) Torn rotator cuff (06/23/13) Repair rotator cuff by Dr. Kaden Escobedo 06-23-2013 Surgical History Biopsy of breast (04/18/17) benign breast tissue with cyst wall Colonoscopy - IV Sedation 10 + years ago- normal Colonoscopy - MAC (12/31/17) EGD - MAC (12/31/17) ganglion, left ankle H/O inguinal hernia repair History of colpocleisis [place] colpocleisis posterior perineorrhaphy cystoscopy at [facility] 09/05/2022 Nuclear senile cataract Oseotomy (10/06/98) TONNY BILATERAL FEET Rotator Cuff Repair (06/23/13) Right with distal clavical excision Status post Mohs surgery for squamous cell carcinoma of skin Family History Mother , 88 Diabetes Essential hypertension Heart disease Hyperlipidemia Father , 63 Neoplasm BLADDER Sister Hyperlipidemia Breast cancer Brother Diabetes Essential hypertension Hyperlipidemia Neoplasm PROSTATE Prostate cancer Maternal Grandfather No problems noted. Paternal Grandfather No problems noted. Maternal Grandmother Diabetes Paternal Grandmother No problems noted. 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 Pets and animals: Yes Pets and animals: dog(s) Sexually active: No Do you think of yourself as: straight/heterosexual Current gender identity: female What is your relationship status?: How often do you talk on the phone with friends or family?: three or more times per week How often do you get together with friends or relatives?: once per week How often do you attend presybeterian or uatsdin services?: decline to answer Do you belong to any clubs or organized social groups?: no Panel score (0-1 are the most socially isolated patients): 1 What type of physical activity do you participate in: none Frequency: does not exercise Nhung/Judaism: No preference Special nhung needs: No Seatbelt use: always Drive intox or ride w/intox 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 Date GA/Weeks # Preg Succ Route Wgt Sex Labor Lgth Anesthesia Location [facility] Compl [birth year]/13/1953 40 No Yes vaginal Female 10/12/1957 40 No Yes vaginal Male Exam Narrative Exam Narrative: Small, thin, but awake and alert senior citizen sitting in recliner. No respiratory distress. Does not appear to be fatigued. Color is good. No cough or dyspnea evident. No hands-on exam done, slightly protuberant abdomen, but no severe ascites evident. No peripheral edema evident. Speech is fluid. Alert and oriented x3. Affect is positive and upbeat Results Last Vital Signs Temp 36.4 C L 01/24/23 07:49 Pulse 72 01/24/23 07:49 Resp 17 01/24/23 07:49 BP 96/62 L 01/24/23 07:49 Pulse Ox 91 L 01/24/23 07:49 Labs 01/24/23 16:05 01/24/23 05:55 Labs: Laboratory Results - last 24 hr 01/24/23 01/24/23 05:55 05:55 WBC 18.00 H RBC 3.16 L Hgb 9.7 L D Hct 29.0 L MCV 92 MCH 30.7 MCHC 33.4 RDW 16.6 H Plt Count 134 MPV 11.6 H Immature Gran % 0.6 Neutrophils % 90.7 Lymphocytes % 4.7 Monocytes % 3.8 Eosinophils % 0.0 Basophils % 0.2 Nucleated RBC % 0.0 Absolute Neutrophils 16.33 H Absolute Lymphocytes 0.85 L Absolute Monocytes 0.68 Absolute Eosinophils 0.00 Absolute Basophils 0.04 Sodium 139 Potassium 4.9 Chloride 105 Carbon Dioxide 29.9 Anion Gap 4.1 BUN 20 H Creatinine 0.8 Est GFR (CKD-EPI 2020) 71.71 Glucose 143 H Calcium 8.1 L Total Bilirubin 2.2 H AST 47 H ALT 31 Alkaline Phosphatase 155 H Total Protein 5.7 L Albumin 1.7 L
--- NOTE | 2023-01-24 12:03 | PGE_ITS ---
Date of Service Date of service: 01/24/23 Time of Service: 12:03 Assessment and Plan Assessment and plan (1) Sepsis: Status: Acute Assessment and plan: Due to pneumonia and GPC bacteremia, present on admission. WBC not improved. Agree with addition of vancomycin as done yesterday; continue ceftriaxone. Can discontinue azithromycin. Repeat blood cultures tomorrow. Obtain an echocardiogram. The patient does have a heart murmur so, unless she chooses to have a ENRIQUETA, she will need 6 weeks of IV antibiotics from the first negative blood culture. (2) Gram-positive cocci bacteremia: Status: Acute Assessment and plan: As above (3) Pneumonia: Status: Acute Assessment and plan: As above (4) Hypoxia: Status: Acute Assessment and plan: Due to above. As above., (5) Pleural effusion: Status: Acute Assessment and plan: Continue home furosemide. (6) Primary biliary cholangitis: Status: Chronic Assessment and plan: With h/o cirrhosis and ascites. No ascites today. Continue furosemide, ursodiol. (7) Emphysema lung: Status: Acute Assessment and plan: Continue PRN albuterol. (8) Essential hypertension: Assessment and plan: BPs actually borderline low today. Will plan to resume furosemide tomorrow with holding parameters. (9) Seizure disorder: Status: Chronic Assessment and plan: Continue keppra. (10) DVT prophylaxis: Status: Acute Assessment and plan: SC enoxaparin (11) Discharge planning issues: Status: Acute Assessment and plan: Full code PT and palliative care are consulted. Subjective Subjective Interval history since last seen: Elina states that I have ruined her day when I told her about the bacteria in her blood stream. She denies dizziness, CP, SOB, cough, n/v. She states that the fact that she has a pneumonia is a surprise to her. At the time of my exam she is on 1L of O2 by UT. It appears that she had spent the night on 3L of O2 by UT. Lost IV access and it has been difficult to replace. Exam Narrative Exam Narrative: General: Pleasant frail elderly female who is not dyspneic/tachypneic or cyanotic on 1L of O2 by UT, sitting up in a chair, A&OX3 HEENT: EOMI, MMM Heart: RRR, + SHARITA Lungs: CTAB Abdomen: soft, nontender, nondistended Extremities: no edema BLEs Objective Last Vital Signs Temp 36.4 C L 01/24/23 07:49 Pulse 72 01/24/23 07:49 Resp 17 01/24/23 07:49 BP 96/62 L 01/24/23 07:49 Pulse Ox 91 L 01/24/23 07:49 Laboratory Results - last 24 hr 01/24/23 01/24/23 05:55 05:55 WBC 18.00 H RBC 3.16 L Hgb 9.7 L D Hct 29.0 L MCV 92 MCH 30.7 MCHC 33.4 RDW 16.6 H Plt Count 134 MPV 11.6 H Immature Gran % 0.6 Neutrophils % 90.7 Lymphocytes % 4.7 Monocytes % 3.8 Eosinophils % 0.0 Basophils % 0.2 Nucleated RBC % 0.0 Absolute Neutrophils 16.33 H Absolute Lymphocytes 0.85 L Absolute Monocytes 0.68 Absolute Eosinophils 0.00 Absolute Basophils 0.04 Sodium 139 Potassium 4.9 Chloride 105 Carbon Dioxide 29.9 Anion Gap 4.1 BUN 20 H Creatinine 0.8 Est GFR (CKD-EPI 2020) 71.71 Glucose 143 H Calcium 8.1 L Total Bilirubin 2.2 H AST 47 H ALT 31 Alkaline Phosphatase 155 H Total Protein 5.7 L Albumin 1.7 L Time Spent with Patient Time Spent with Patient: 25-34 minutes Time was spent: preparing to see the patient(eg.review tests), obtaining and/or reviewing separately otained hiistory, ordering medications,tests, procedures, referring, communicating with other health transitional care manager, indepentently interpreting results, counseling the patient and care coordination
[2023-01-24 15:18] VITALS: BP 106/72; PULSE 80; RESP 16; TEMP 36.7; O2SAT 98
[2023-01-24 16:16] LABS: HCT 33.6 % (36.0-46.0); HGB 11.1 g/dL (11.2-15.7); Lactate 2.6 mmol/L (0.6-1.4)
[2023-01-24 19:48] LABS: Lactate 2.6 mmol/L (0.6-1.4)
[2023-01-24] MEDS: Acetaminophen 325 MG TAB PO (20:06)
[2023-01-24 20:11] VITALS: BP 114/77; PULSE 84; RESP 18; TEMP 36.5; O2SAT 98
[2023-01-24] MEDS: VANCOMYCIN/WATER (PEG) 1.25 GM/250 ML BAG IVPB (22:39)
--- NOTE | 2023-01-25 | DI.US_ITS ---
APPROVED REPORT EXAM: Comprehensive 2D, Doppler, and color-flow Echocardiogram Patient Location: In-Patient Room/Bed: 225 Retail Coordinator: Jeanie Hensley RDCS (AE) Indications: GPC Bacteremia, concern for endocarditis Other Information Study Quality: Adequate Conclusion The left ventricular wall thickness and chamber size. Ejection fraction is 58%. Wall motion is norm al Normal right ventricular size and function The right atrium is normal in size. The left atrium is mildly enlarged Aortic valve is trileaflet and mildly sclerotic. There is trace aortic regurgitation Mild mitral annular calcification. Trace to mild regurgitation Normal tricuspid valve with trace to mild regurgitation. Estimated right ventricular systolic pressu re is 32 mmHg Mildly dilated ascending aorta 3.51 cm No valvular vegetations were identified Wall motion Left Ventricle The left ventricle is normal size. The left ventricular systolic function is normal. The left ventric ular ejection fraction is within the normal range. There is normal left ventricular wall thickness. T here is normal LV segmental wall motion. There is no ventricular septal defect visualized. LVEF is 58 %. Right Ventricle The right ventricle is normal size. The right ventricular systolic function is normal. Atria Left atrium is mildly dilated. The right atrium size is normal. Atrial septal aneurysm is present. Aortic Valve The Aortic valve is mildly sclerotic. Aortic valve is trileaflet. No hemodynamically significant valv ular aortic stenosis. Trace aortic regurgitation. Mitral Valve Mild mitral annular calcification. No evidence of mitral valve stenosis. Trace to mild mitral regurgi tation. Tricuspid Valve The tricuspid valve is normal in structure. There is no tricuspid valve stenosis. Trace to mild tricu spid regurgitation. The RVSP is 31.9 mmHg. Pulmonic Valve The pulmonary valve is normal in structure. There is no pulmonic valvular stenosis. Trace pulmonic re gurgitation. Great Vessels The aortic root is normal in size. The ascending aorta is mildly dilated. Aortic arch is not well vis ualized. IVC is normal in size and collapses >50% with inspiration. Pericardium There is no pericardial effusion. 2D Dimensions IVSD d PLAX 0.86 cm F: 0.6-1.0 LVPW d PLAX 0.85 cm F: 0.6 - 1.0 LVID d PLAX 4.40 cm F: 3.8 - 5.2 LVDs 3.05 cm F: 2.2 - 3.5 Ao Root d 3.05 cm F: 2.7 - 3.3 RA Area A4C 13.91 cm2 Ao Asc Diam d 3.51 cm F: 2.3 - 3.1 LV EF Keenanichkayla 57.6 % FS 30.10 % M-Mode TAPSE 2.79 cm (M/F) >1.7 LV Diastology MV E' medial 0.072 (>0.07 m/s) E/A Ratio 0.7 LV E/e MED 13.29 (<14) MV E Vmax 0.95 (0.4-1.3 m/s) MV E' lateral 0.081 (>0.1 m/s) MV A Vmax 1.30 (0.4-1.3 m/s) LV E/e LAT 11.78 (<14) MV E/E' medial 13.29 MV E/E' lateral 11.78 MV (E/E' average) 12.49 Aortic Valve LVOT Vmax 1.68 m/s AoV Area Vmax 2.39 cm2 LVOT Peak Grad 11.3 mmHg LVOT Mean Grad 5.4 mmHg LVOT Diam s 2.00 cm AoV Vmax 2.21 m/s Velocity Ratio 0.76 AoV Peak Grad 19.5 mmHg LVOT SV 107.11 mL AoV Mean Grad 10.6 mmHg AoV Area VTI 2.01 cm2 Mitral Valve MV DT 206 (160-240 msec) MV Vmax TIPS 1.36 m/s MV Mean Grad 2.9 (<2mmHg) MV VTI 0.372 m Pulmonary Valve PV Mean Grad 4.2 mmHg RVOT Peak Gr. 3.64 mmHg RVOT Mean Gr. 1.85 mmHg RVOT VTI 0.215 m RVOT Vmax 0.95 m/s Tricuspid Valve TR Peak Grad 28.9 mmHg TR Vmax 2.69 m/s RA Pressure 3.00 mmHg RVSP (TR) 31.9 mmHg
[2023-01-25 03:39] VITALS: BP 113/67; PULSE 74; RESP 16; TEMP 36.5; O2SAT 95
[2023-01-25] MEDS: Mylanta Suspension 30 ML CUP PO (04:48)
[2023-01-25 07:32] LABS: Abs Immature Grans 0.07 10^3/uL (0.0-0.06); Basophils % 0.1; HCT 30.1 % (36.0-46.0); Immature Grans % 0.5; Lymphocytes % 5.8; MCH 30.5 pg (27.0-33.0); MCHC 33.2 % (32.0-36.0); MCV 92 fL (80-95); MPV 11.8 fL (8.0-11.0); Monocytes % 4.4; Neutrophils % 89.2; Platelet Count 147 10^3/uL (130-400); RBC 3.28 10^6/uL (3.93-5.22); RDW 16.9 % (11.7-14.6); RDW-SD 57.2 fL; WBC 14.25 10^3/uL (4.4-10.8)
[2023-01-25 07:34] LABS: Absolute Basophil Count 0.01 10^3/uL (0.0-0.2); Absolute Lymphocyte Count 0.83 10^3/uL (1.2-3.4); Absolute Monocyte Count 0.63 10^3/uL (0.1-0.8); Absolute Neutrophil Count 12.71 10^3/uL (1.2-6.7)
[2023-01-25 07:44] VITALS: BP 109/65; PULSE 71; RESP 18; TEMP 36.7; O2SAT 98
[2023-01-25] MEDS: Cholecalciferol (Vitamin D3) 1,000 UNIT TAB 1000 UNITS PO (08:04)
[2023-01-25] MEDS: levETIRAcetam 500 MG TAB 1000 MG PO ×2 (08:04→20:43)
[2023-01-25] MEDS: cefTRIAXone 2 GM/50 ML BAG IVPB (08:05)
[2023-01-25] MEDS: Magnesium Gluconate 500 MG TAB PO ×2 (08:05→20:44)
[2023-01-25] MEDS: Enoxaparin 40 MG/0.4 ML SYR SC (08:05)
[2023-01-25] MEDS: Furosemide 20 MG TAB PO (08:05)
[2023-01-25] MEDS: Ursodiol 300 MG CAP PO ×3 (08:05→20:43)
[2023-01-25 08:07] LABS: Anion Gap 6.3 mmol/L (3-11); BUN 21 mg/dL (7-18); CO2 28.7 mmol/L (21.0-32.0); CREATININE 0.8 mg/dL (0.55-1.02); Calcium 8.1 mg/dL (8.5-10.1); Chloride 107 mmol/L (98-107); Estimated GFR 71.71 (mL/min/1.73m2); Ferritin 90 ng/mL (8-252); Glucose 135 mg/dL (74-106); Magnesium 2.1 mg/dL (1.8-2.4); Potassium 4.7 mmol/L (3.5-5.1); Sodium 142 mmol/L (136-145)
[2023-01-25 08:09] LABS: Procalcitonin 5.1 ng/mL
[2023-01-25 08:17] LABS: Folate 13.9 ng/mL (8.6-20.0); Vitamin B12 1618 pg/mL (193-986)
[2023-01-25 08:28] LABS: C-Reactive Protein 5.57 mg/dL (0.0-0.3)
[2023-01-25 08:29] LABS: Iron 18 ug/dL (50-170); Total Iron Binding Capacity 231 ug/dL (250-450); Transferrin Sat 8 % (15-50)
[2023-01-25 11:56] VITALS: O2SAT 97
--- NOTE | 2023-01-25 13:10 | W.PM.PROGNOT ---
Date of Service Date of service: 01/25/23 Time of Service: 13:10 Assessment and Plan Assessment and plan (1) Sepsis: Status: Acute Assessment and plan: Due to pneumonia and Strep mitis bacteremia, present on admission. Continue ceftriaxone. D/c vancomycin. Azithromycin d/c'ed yesterday. Repeat blood cultures done today, pending. TTE: no valvular vegetations identified. She does have a murmur, so a ENRIQUETA would be helpful. I have reached to [facility] to see how Kamilla Jade, the patient's GI CREPING MACHINE OPERATOR HELPER, would feel about this, per patient and patient's son's request. If ok with her, I will speak to [facility]. (2) Bacteremia due to Streptococcus: Status: Acute Assessment and plan: As above (3) Pneumonia: Status: Acute Assessment and plan: As above (4) Hypoxia: Status: Resolved Assessment and plan: Due to above. As above. (5) Pleural effusion: Status: Acute Assessment and plan: Continue home furosemide. (6) Primary biliary cholangitis: Status: Chronic Assessment and plan: With h/o cirrhosis and ascites. No ascites today, but does have edema. Continue furosemide, ursodiol. I am reaching out to the patient's art historian. (7) Emphysema lung: Status: Acute Assessment and plan: Continue PRN albuterol. (8) Essential hypertension: Assessment and plan: BPs tolerating resumption of furosemide. Continue to monitor. (9) Seizure disorder: Status: Chronic Assessment and plan: Continue keppra. (10) DVT prophylaxis: Status: Acute Assessment and plan: SC enoxaparin (11) Discharge planning issues: Status: Acute Assessment and plan: Full code PT and palliative care are consulted. May require [place] [facility] [place]. Subjective Subjective Interval history since last seen: Ms Duarte feels well. Still no cough and not SOB. Denies dizziness, CP, nausea. States her diarrhea is chronic and she always takes imodium for it at home. Her son was present for the discussion of IV abx x 6 weeks versus attempting to get a ENRIQUETA. He wanted for me to reach out to the patient's art historian at [facility], Kamilla Jade, to discuss this case with her because she has been coordinating all her care at [facility], per son. Additionally, he states that the patient had just recently had anesthesia and did very well. He is interested in trying to get a ENRIQUETA for his mom. Exam Narrative Exam Narrative: General: Pleasant frail elderly female who is not dyspneic/tachypneic or cyanotic, looks comfortable sitting up in a chair, on RA, A&OX3 HEENT: EOMI, MMM Heart: RRR, + SHARITA Lungs: faint rales at B bases Abdomen: soft, nontender, nondistended Extremities: +1 BLE edema, symmetric Objective Last Vital Signs Temp 36.7 C 01/25/23 07:44 Pulse 71 01/25/23 07:44 Resp 18 01/25/23 07:44 BP 109/65 01/25/23 07:44 Pulse Ox 97 01/25/23 11:56 Laboratory Results - last 24 hr 01/24/23 01/24/23 01/24/23 16:05 16:05 19:39 WBC RBC Hgb 11.1 L Hct 33.6 L MCV MCH MCHC RDW Plt Count MPV Immature Gran % Neutrophils % Lymphocytes % Monocytes % Eosinophils % Basophils % Nucleated RBC % Absolute Neutrophils Absolute Lymphocytes Absolute Monocytes Absolute Eosinophils Absolute Basophils VBG Lactate 2.6 H* 2.6 H* Sodium Potassium Chloride Carbon Dioxide Anion Gap BUN Creatinine Est GFR (CKD-EPI 2020) Glucose Calcium Magnesium Iron TIBC Transferrin % Sat Ferritin C-Reactive Protein Vitamin B12 Folate Procalcitonin 01/25/23 01/25/23 01/25/23 06:44 06:44 06:44 WBC 14.25 H RBC 3.28 L Hgb 10.0 L Hct 30.1 L MCV 92 MCH 30.5 MCHC 33.2 RDW 16.9 H Plt Count 147 MPV 11.8 H Immature Gran % 0.5 Neutrophils % 89.2 Lymphocytes % 5.8 Monocytes % 4.4 Eosinophils % 0.0 Basophils % 0.1 Nucleated RBC % 0.0 Absolute Neutrophils 12.71 H Absolute Lymphocytes 0.83 L Absolute Monocytes 0.63 Absolute Eosinophils 0.00 Absolute Basophils 0.01 VBG Lactate Sodium 142 Potassium 4.7 Chloride 107 Carbon Dioxide 28.7 Anion Gap 6.3 BUN 21 H Creatinine 0.8 Est GFR (CKD-EPI 2020) 71.71 Glucose 135 H Calcium 8.1 L Magnesium 2.1 Iron TIBC Transferrin % Sat Ferritin 90 C-Reactive Protein 5.57 H Vitamin B12 Folate Procalcitonin 5.1 01/25/23 01/25/23 06:44 06:44 WBC RBC Hgb Hct MCV MCH MCHC RDW Plt Count MPV Immature Gran % Neutrophils % Lymphocytes % Monocytes % Eosinophils % Basophils % Nucleated RBC % Absolute Neutrophils Absolute Lymphocytes Absolute Monocytes Absolute Eosinophils Absolute Basophils VBG Lactate Sodium Potassium Chloride Carbon Dioxide Anion Gap BUN Creatinine Est GFR (CKD-EPI 2020) Glucose Calcium Magnesium Iron 18 L TIBC 231 L Transferrin % Sat 8 L Ferritin C-Reactive Protein Vitamin B12 1618 H Folate 13.9 Procalcitonin Time Spent with Patient Time Spent with Patient: 35-49 minutes Time was spent: preparing to see the patient(eg.review tests), obtaining and/or reviewing separately otained hiistory, ordering medications,tests, procedures, referring, communicating with other health medicare sales executive, indepentently interpreting results, counseling the patient and care coordination
[2023-01-25 14:39] LABS: C Diff PCR Negative (Negative)
[2023-01-25 15:33] VITALS: BP 120/75; PULSE 80; RESP 17; TEMP 36.2; O2SAT 96
--- NOTE | 2023-01-25 17:04 | PDOC.CMPRO ---
Date of service: 01/25/23 Time of Service: 17:04 Care Management Progress Note Progress Note Text Progress Note Text: S/O: Gurinder (preferred name) was sitting up in her chair when CM met with her. Her son was in the room visiting. Gurinder stated that she is anxious to return home, but understands that she is not yet medically ready for discharge. She stated that her son is very helpful to have in the room with her because he understands medical information and explains it to her in a way she can understand. Her son reported that per MD, Gurinder is being considered for a [place]ET[place] at [facility] [place] determine if she has vegetation on her heart valves, which will help determine her IV antibiotic course. Later, stated that she is not a candidate for a ENRIQUETA, per Dr. Jade, [facility]. CM discussed options for IV abx with Gurinder and her son, and Gurinder stated that she would prefer home therapy with RN support. She stated that her son would be available to learn how to administer the medication. CM faxed home IV abx orders to [facility] and [facility] for consideration. CM will continue to follow. A: 88 year old female admitted to [facility] on 01/23/23 for Pneumonia. pleural effusion P: Anticipate Elina will discharge home via private vehicle with her son Marcus when medically cleared by Hospitalist. Orders have been sent for home IV antibiotics, awaiting determination.? New [facility] RN for home IV therapy. Outpatient PT is not indicated at this time. CM will continue to follow.
[2023-01-25 19:28] LABS: Legionella Ag Detection Urine Negative (Negative)
[2023-01-25] MEDS: Acetaminophen 325 MG TAB PO (20:43)
[2023-01-26 05:54] VITALS: BP 111/64; PULSE 60; RESP 16; TEMP 35.7; O2SAT 96
[2023-01-26 06:49] LABS: Abs Immature Grans 0.03 10^3/uL (0.0-0.06); Absolute Basophil Count 0.02 10^3/uL (0.0-0.2); Absolute Eosinophil Count 0.13 10^3/uL (0.0-0.7); Absolute Lymphocyte Count 1.26 10^3/uL (1.2-3.4); Absolute Monocyte Count 0.57 10^3/uL (0.1-0.8); Absolute Neutrophil Count 5.72 10^3/uL (1.2-6.7); Basophils % 0.3; Eosinophils % 1.7; HCT 32.9 % (36.0-46.0); HGB 10.7 g/dL (11.2-15.7); Immature Grans % 0.4; Lymphocytes % 16.3; MCH 30.6 pg (27.0-33.0); MCHC 32.5 % (32.0-36.0); MCV 94 fL (80-95); MPV 11.9 fL (8.0-11.0); Monocytes % 7.4; Neutrophils % 73.9; Platelet Count 142 10^3/uL (130-400); RDW 16.9 % (11.7-14.6); RDW-SD 57.5 fL; WBC 7.73 10^3/uL (4.4-10.8)
[2023-01-26 07:09] LABS: BUN 20 mg/dL (7-18); C-Reactive Protein 3.51 mg/dL (0.0-0.3); CREATININE 0.7 mg/dL (0.55-1.02); Calcium 8.1 mg/dL (8.5-10.1); Chloride 109 mmol/L (98-107); Estimated GFR 84.17 (mL/min/1.73m2); Glucose 92 mg/dL (74-106); Potassium 4.2 mmol/L (3.5-5.1); Sodium 144 mmol/L (136-145)
[2023-01-26 07:26] VITALS: BP 136/78; PULSE 71; RESP 18; TEMP 35.9; O2SAT 96
[2023-01-26] MEDS: cefTRIAXone 2 GM/50 ML BAG IVPB (08:50)
[2023-01-26] MEDS: Furosemide 20 MG TAB PO (08:51)
[2023-01-26] MEDS: Ursodiol 300 MG CAP PO ×3 (08:51→19:46)
[2023-01-26] MEDS: levETIRAcetam 500 MG TAB 1000 MG PO ×2 (08:51→19:46)
[2023-01-26] MEDS: Magnesium Gluconate 500 MG TAB PO ×2 (08:51→19:46)
[2023-01-26] MEDS: Cholecalciferol (Vitamin D3) 1,000 UNIT TAB 1000 UNITS PO (08:51)
--- NOTE | 2023-01-26 14:08 | DI.RAD_ITS ---
Exam(s) XR LINE PLACEMENT PICC/CVA EXAM: XR LINE PLACEMENT PICC/CVA CLINICAL HISTORY: post PICC placement. TECHNIQUE: 2D digital imaging was performed. COMPARISON: CR,XR XR CHEST 2V PA LATERAL from 01/23/2023 FINDINGS: Aetcra-erem-LP Heart size unchanged. Lung coe unchanged. Distal tip of the newly placed PICC line is in the right atrium and should be retracted into the SVC. Again noted is evidence of previous rotator cuff surgery in the right shoulder IMPRESSION: PICC line needs to be retracted approximately 4 cm into the SVC. It is presently in the right atrium . Discussed by phone with PICC line provider. DATA REPOSITORY: RADIATION DOSE DELIVERED:
--- NOTE | 2023-01-26 14:09 | DI.RAD_ITS ---
Exam(s) XR LINE PLACEMENT PICC/CVA EXAM: XR LINE PLACEMENT PICC/CVA CLINICAL HISTORY: post PICC placement. TECHNIQUE: 2D digital imaging was performed. COMPARISON: CR XR LINE PLACEMENT PICC/CVA from 01/26/2023 FINDINGS: Single AP view PICC line has now been retracted into better position in the SVC. Heart size unchanged. Interstitial disease in both lungs unchanged. No large pleural effusions. No pneumothorax IMPRESSION: Improved position of the PICC line which is now in the mid-distal SVC. Discussed by phone with PICC line provider. DATA REPOSITORY: RADIATION DOSE DELIVERED:
[2023-01-26 14:57] VITALS: BP 147/83; PULSE 85; RESP 18; TEMP 36.6; O2SAT 90
--- NOTE | 2023-01-26 16:18 | PGE_ITS ---
Date of Service Date of service: 01/26/23 Time of Service: 16:30 Assessment and Plan Assessment and plan (1) Sepsis: Status: Acute Assessment and plan: Due to pneumonia and Strep mitis bacteremia, present on admission. Continue ceftriaxone. End date is 03/07/23. Has a PICC line (placed today). Repeat blood cultures are negative. TTE: no valvular vegetations identified. Not a candidate for a ENRIQUETA due to h/o esophageal varices seen on EGD 2 weeks ago. (2) Bacteremia due to Streptococcus: Status: Acute Assessment and plan: As above (3) Pneumonia: Status: Acute Assessment and plan: As above (4) Hypoxia: Status: Resolved Assessment and plan: Due to above. As above. (5) Pleural effusion: Status: Acute Assessment and plan: Continue home furosemide. (6) Primary biliary cholangitis: Status: Chronic Assessment and plan: With h/o cirrhosis, varices, and ascites. No ascites today, but does have edema. Continue furosemide, ursodiol. The patient did not want me to adjust her dose of furosemide today. (7) Emphysema lung: Status: Acute Assessment and plan: Continue PRN albuterol. (8) Essential hypertension: Assessment and plan: BPs tolerating resumption of furosemide. Continue to monitor. (9) Seizure disorder: Status: Chronic Assessment and plan: Continue keppra. (10) DVT prophylaxis: Status: Acute Assessment and plan: TEDs. Hold chemical DVT ppx in light of large varices seen [place] [facility] [place] ago. (11) Discharge planning issues: Status: Acute Assessment and plan: DNR PT and palliative care are consulted. Anticipate discharge home over the weekend with infusion room antibiotics. Subjective Subjective Interval history since last seen: Ms Duarte was not sure if she would do infusion room antibiotics or home health antibiotics when I came to see her. She has since made a decision to try the infusion room. She denies dizziness, CP, SOB, n/v. She is feeling well. Her midline was replaced with a RUE PICC today. She does not want me to change her lasix dose/frequency today. Exam Narrative Exam Narrative: General: Pleasant frail elderly female who is not dyspneic/tachypneic or cyanotic, looks comfortable sitting up at the side of the bed, on RA, A&OX3 HEENT: EOMI, MMM Heart: RRR, + SHARITA Lungs: Diminished breath sounds B Abdomen: soft, nontender, nondistended Extremities: +1 BLE edema, symmetric Objective Last Vital Signs Temp 36.6 C 01/26/23 14:57 Pulse 85 01/26/23 14:57 Resp 18 01/26/23 14:57 BP 147/83 H 01/26/23 14:57 Pulse Ox 90 L 01/26/23 14:57 Laboratory Results - last 24 hr 01/24/23 01/26/23 01/26/23 14:31 06:05 06:05 WBC 7.73 RBC 3.50 L Hgb 10.7 L Hct 32.9 L MCV 94 MCH 30.6 MCHC 32.5 RDW 16.9 H Plt Count 142 MPV 11.9 H Immature Gran % 0.4 Neutrophils % 73.9 Lymphocytes % 16.3 Monocytes % 7.4 Eosinophils % 1.7 Basophils % 0.3 Nucleated RBC % 0.0 Absolute Neutrophils 5.72 Absolute Lymphocytes 1.26 Absolute Monocytes 0.57 Absolute Eosinophils 0.13 Absolute Basophils 0.02 Sodium 144 Potassium 4.2 Chloride 109 H Carbon Dioxide 30.0 Anion Gap 5.0 BUN 20 H Creatinine 0.7 Est GFR (CKD-EPI 2020) 84.17 Glucose 92 Calcium 8.1 L Magnesium 2.0 C-Reactive Protein 3.51 H Urine Legionella Ag Negative Time Spent with Patient Time Spent with Patient: 25-34 minutes Time was spent: preparing to see the patient(eg.review tests), obtaining and/or reviewing separately otained hiistory, ordering medications,tests, procedures, referring, communicating with other health vocational childcare teacher, indepentently interpreting results, counseling the patient and care coordination
--- NOTE | 2023-01-26 17:15 | PDOC.CMPRO ---
Date of service: 01/26/23 Time of Service: 17:15 Care Management Progress Note Progress Note Text Progress Note Text: S/O: Per report, Elina's repeat blood cultures are negative. She is not eligible for a ENRIQUETA, so she will need six weeks of IV antibiotics. CM sent orders to [facility] and [facility]. [facility] informed CM that the out of pocket cost would be $220/week. [facility] informed CM that the out of pocket cost would be $148/week. Elina could also remain at [facility] in [facility], or come into the infusion room daily. CM called Elina's son, Chon, while in Elina's room to discuss the options. Chon asked if there are any community resources that could assist with the cost; per [facility], the bulk of the cost ($20/day) is in supplies, such as syringes and flushes. Burt, [facility], stated that there is no way to reduce this cost, as it is one package per day, and [employer] or [facility] do not cover the cost of supplies. Elina decided to go to the infusion room daily, with support from multiple family members, who will help drive her. Her abx dose is currently at 08:30am, and will be changed to 09:30 for tomorrow morning. She will likely discharge tomorrow, with a start of care date in the infusion room of 01/28/23 at 10:30am. She may transition to home IV abx after a week or two, if this plan does not work out for her and her family. CM will continue to follow. A: Elina Guzman) is a 88 year old female admitted to [facility] on 01/23/23 for Pneumonia. pleural effusion P: Anticipate Elina will discharge home via private vehicle with her son Chon when medically cleared by Hospitalist. Elina will go the infusion room daily for her IV antibiotics, with the support of several family members. She will follow up with her PCP and discharge plan of care. CM will continue to follow
[2023-01-26] MEDS: Acetaminophen 325 MG TAB PO (19:49)
[2023-01-26 19:54] VITALS: BP 136/70; PULSE 95; RESP 22; TEMP 36.8; O2SAT 95
[2023-01-27 06:58] VITALS: BP 113/73; PULSE 81; TEMP 36; O2SAT 92
[2023-01-27 07:11] LABS: Abs Immature Grans 0.03 10^3/uL (0.0-0.06); Absolute Basophil Count 0.07 10^3/uL (0.0-0.2); Absolute Eosinophil Count 0.27 10^3/uL (0.0-0.7); Absolute Lymphocyte Count 1.58 10^3/uL (1.2-3.4); Absolute Monocyte Count 0.59 10^3/uL (0.1-0.8); Absolute Neutrophil Count 4.57 10^3/uL (1.2-6.7); Eosinophils % 3.8; HCT 33.8 % (36.0-46.0); HGB 11.5 g/dL (11.2-15.7); Immature Grans % 0.4; Lymphocytes % 22.2; MCH 30.3 pg (27.0-33.0); MCV 89 fL (80-95); MPV 11.7 fL (8.0-11.0); Monocytes % 8.3; Neutrophils % 64.3; Platelet Count 184 10^3/uL (130-400); RDW 16.9 % (11.7-14.6); RDW-SD 54.5 fL; WBC 7.11 10^3/uL (4.4-10.8)
[2023-01-27 07:35] LABS: Anion Gap 8.1 mmol/L (3-11); BUN 19 mg/dL (7-18); C-Reactive Protein 3.22 mg/dL (0.0-0.3); CO2 28.9 mmol/L (21.0-32.0); CREATININE 0.7 mg/dL (0.55-1.02); Calcium 8.2 mg/dL (8.5-10.1); Chloride 108 mmol/L (98-107); Estimated GFR 84.17 (mL/min/1.73m2); Glucose 88 mg/dL (74-106); Magnesium 1.9 mg/dL (1.8-2.4); Potassium 3.2 mmol/L (3.5-5.1); Sodium 145 mmol/L (136-145)
[2023-01-27] MEDS: Cholecalciferol (Vitamin D3) 1,000 UNIT TAB 1000 UNITS PO (08:05)
[2023-01-27] MEDS: Ursodiol 300 MG CAP PO ×2 (08:05→14:07)
[2023-01-27] MEDS: Furosemide 20 MG TAB PO (08:05)
[2023-01-27] MEDS: Magnesium Gluconate 500 MG TAB PO (08:05)
[2023-01-27] MEDS: levETIRAcetam 500 MG TAB 1000 MG PO (08:06)
[2023-01-27] MEDS: Loperamide 2 MG CAP PO (08:06)
[2023-01-27] MEDS: Potassium Chloride Liquid 20 MEQ PKT 40 MEQ PO ×2 (08:10→14:07)
[2023-01-27 08:16] LABS: Procalcitonin 2.1 ng/mL
[2023-01-27] MEDS: cefTRIAXone 2 GM/50 ML BAG IVPB (09:19)
--- NOTE | 2023-01-27 13:02 | DSE_ITS ---
Date of service: 01/27/23 Time of Service: 13:03 DS: Diagnosis Discharge Diagnosis (1) Sepsis: Status: Acute (2) Bacteremia due to Streptococcus: Status: Acute (3) Pneumonia: Status: Acute (4) Hypoxia: Status: Resolved (5) Pleural effusion: Status: Acute (6) Primary biliary cholangitis: Status: Chronic (7) Emphysema lung: Status: Acute (8) Essential hypertension: (9) Seizure disorder: Status: Chronic (10) Esophageal varices: Status: Acute Discharge Plan Disposition Patient Disposition: Home Condition: Improving Discharge Details Reason For Visit: Pneumonia,Pleural Effusion Admit Date/Time: 01/23/23 06:19 Admit Provider: Abel Guzmán Attending Provider: Abel Guzmán Primary Care Provider: Macarena Blankenship Hospital Course Hospital Course: Ms Duarte is an 88 year old female with PMHx of PBC/cirrhosis with portal hypertension, ascites, and esophageal varices, as well as h/o seizure disorder, who was a patient on [facility] hospitalist service from 01/23/23 until 01/27/23 for sepsis due to strep mitis/oralis bacteremia as well as pneumonia. The patient did initially saturate 87% on RA and required 3L of O2 to saturate in the 90s. There was evidence of pneumonia and a right pleural effusion on her CXR. She was initiated on empiric azithromycin and ceftriaxone. Her blood cultures done on admission grew Strep mitis/oralis. Antibiotic therapy was narrowed to ceftriaxone. Repeat blood cultures were negative. A transthoracic echocardiogram was obtained and revealed LVEF of 58%, normal wall motion, mildly enlarged left atrium, mildly sclerotic trileaflet aortic valve with trace aortic regurgitation, mild mitral calcification and regurgitation, mild tricuspid regurgitation. No valvular vegetations were seen on TTE. I discussed her case with her GI provider, Kamilla Jade, who brought up the fact that the patient had large esophageal varices seen on EGD just two weeks ago, making a potential ENRIQUETA high risk for fear of disturbing the varices. Based on this, decision was made to pursue 6 weeks of IV antibiotics, with the end date being 03/07/23. The patient improved steadily on ceftriaxone, and her oxygen requirement resolved by hospital day 3. A PICC line was placed on 01/26/23 into her RUE. The patient is being discharged home today with orders for infusion room antibiotics (ceftriaxone 2 grams daily ) through 03/07/23. She will need weekly labs (CBC w/ diff, BMP, CRP) with results going to her PCP. An infectious diseases referral is being placed. Care for patient as well as completion of her discharge summary on day of discharge took 60 minutes. Home Meds and New Rx's Prescriptions: New ceftriaxone in dextrose,iso-os 2 gram/50 mL Piggyback 2 g IVPB Q24H Qty: 0 0RF Lactobacillus acidophilus 1 billion cell capsule 1,000 mmu cells PO DAILY Qty: 60 0RF Continued calcium carbonate [Calcium 600] 600 mg calcium (1,500 mg) tablet 600 mg PO DAILY PRN (Reason: Acid Reflux) Patient Comments: 01/05/22- pt unsure of dose furosemide 20 mg tablet 20 mg PO .COMPLEX Qty: 180 3RF Rx Instructions: 20 mg orally daily, use bid for 3 days if weight gain > 3 pounds; ursodiol 300 mg capsule 300 mg PO TID Patient Comments: TAKE ONE CAPSULE BY MOUTH THREE TIMES A DAY levetiracetam 1,000 mg tablet 1,000 mg PO BID potassium chloride 40 mEq/15 mL liquid 40 meq PO TID Qty: 1350 12RF cholecalciferol (vitamin D3) [Vitamin D3] 2,000 UNIT capsule 1,000 unit PO DAILY albuterol sulfate [ProAir HFA] 90 mcg/actuation HFA aerosol inhaler 1 puff Inhalation Q6H PRN Qty: 3 4RF benzonatate 100 mg capsule 100 mg PO TID PRN (Reason: cough) Qty: 30 0RF magnesium gluconate 27 mg magnesium (500 mg) tablet 27 mg PO BID Qty: 180 3RF No Action milk thistle 150 mg capsule 150 mg PO DAILY Patient Comments: 01/05/22- pt unsure of dose Rx Instructions: give with meal/snack Discharge Instructions Instructions: Ceftriaxone (By injection), Sepsis (DC), Bacterial Pneumonia (DC), Bacteremia (DC), How to Care for Your PICC (Peripherally Inserted Central Catheter) (DC), PICC (Peripherally Inserted Central Catheter) (DC) Additional Instructions: Follow up with [facility] infusion room daily at 10:30 am. Return to the hospital with any fever, bleeding, chest pain, or shortness of breath. Follow up with your PCP in 1-2 weeks. Follow up with infectious diseases at [facility]. Follow up with GI at [facility]. Stand Alone Forms: Nursing Discharge Form Referrals: INFECTIOUS,[facility] [OTHER] - (Referral has been sent. Strep mitis bacteremia) Macarena Blankenship MD [Primary Care Provider] - (Please call Sunday to make a follow up appointment for 1-2 weeks) Kamilla Jade [NURSE PRACTITIONER] - (Please call Sunday to make a follow up appointment.) Activity:: Activity as Tolerated Equipment/Supplies:: PICC line Diet:: As Tolerated Discharge Orders Discharge Orders: Discharge Order (Routine); Ordered 01/27/23 Ordered By: Mariel Rehman DS: Summary Time Spent with Patient providing and/or coordinating discharge services: Greater than 30 minutes Status at Discharge Functional status at discharge: independent ambulation Overall status at discharge: patient is progressing back to baseline Mental Status: mental status grossly normal Speech and Movement: speech and movement normal Mood: congruent mood Affect: normal affect Exam Narrative Exam Narrative: General: Pleasant frail elderly female, looks comfortable sitting up at the side of the bed, very mildly dyspneic on RA after just walking, A&OX3 HEENT: EOMI, MMM Heart: RRR, + SHARITA Lungs: Diminished breath sounds B Abdomen: soft, nontender, nondistended Extremities: +2 BLE edema, symmetric Psych Mental Status: mental status grossly normal Speech and Movement: speech and movement normal Mood: congruent mood Affect: normal affect DS: Data Vitals/I&O Vitals and I&O: Vital Signs Temperature 36.0 C L 01/27/23 06:58 Temperature Source Tympanic 01/27/23 06:58 Pulse 81 01/27/23 06:58 Pulse Rhythm Irregular 01/27/23 08:10 Respiratory Rate 22 01/26/23 19:54 Respiratory Effort Normal 01/27/23 08:10 Respiratory Depth Normal 01/27/23 08:10 Respiratory Pattern Normal 01/27/23 08:10 Blood Pressure 113/73 01/27/23 06:58 Blood Pressure Position Sitting 01/23/23 04:08 Pulse Oximetry 92 01/27/23 06:58 Oxygen Delivery Method Room Air 01/27/23 06:58 Oxygen Flow Rate 0 01/27/23 06:58 Pain Level 0 01/27/23 06:58 Comment right forearm. 08/18/23 05:54 Intake & Output 01/26/23 01/27/23 01/27/23 23:59 11:59 23:59 Intake Total 1050 / 1050 550 / 550 Balance 1050 / 1050 550 / 550 Intake: IV 50 / 50 Oral 1000 / 1000 550 / 550 Other: Urine Color Yellow Urine Appearance Clear Clear Comment unsure of amount, pT voided in toilet Stool Size Moderate Stool Characteristics Formed Brown Voiding Methods Toilet Toilet Data Completed and Pending Completed studies during hospitalization [Text1]: CXR 01/23/23: Limited exam.? Small right pleural effusion.? Right basilar atelectasis.? Infiltrate not excluded. Echo 01/25/23: The left ventricular wall thickness and chamber size.? Ejection fraction is 58%.? Wall motion is normal Normal right ventricular size and function The right atrium is normal in size.? The left atrium is mildly enlarged Aortic valve is trileaflet and mildly sclerotic.? There is trace aortic regurgitation Mild mitral annular calcification.? Trace to mild regurgitation Normal tricuspid valve with trace to mild regurgitation.? Estimated right ventricular systolic pressure is 32 mmHg Mildly dilated ascending aorta 3.51 cm No valvular vegetations were identified Labs on day of discharge: Labs from last 24 hours 01/27/23 01/27/23 01/27/23 06:50 06:50 06:50 WBC 7.11 RBC 3.80 L Hgb 11.5 Hct 33.8 L MCV 89 D MCH 30.3 MCHC 34.0 RDW 16.9 H Plt Count 184 MPV 11.7 H Immature Gran % 0.4 Neutrophils % 64.3 Lymphocytes % 22.2 Monocytes % 8.3 Eosinophils % 3.8 Basophils % 1.0 Nucleated RBC % 0.0 Absolute Neutrophils 4.57 Absolute Lymphocytes 1.58 Absolute Monocytes 0.59 Absolute Eosinophils 0.27 Absolute Basophils 0.07 Sodium 145 Potassium 3.2 L D Chloride 108 H Carbon Dioxide 28.9 Anion Gap 8.1 BUN 19 H Creatinine 0.7 Est GFR (CKD-EPI 2020) 84.17 Glucose 88 Calcium 8.2 L Magnesium 1.9 C-Reactive Protein 3.22 H Procalcitonin 2.1 Preliminary micro results at discharge 01/25/23 06:44 Blood Culture - Preliminary Blood NO GROWTH 48 HOURS 01/25/23 06:44 Blood Culture - Preliminary Blood NO GROWTH 48 HOURS PFSH All Active Problems (Updated 01/27/23 @ 13:03 by Mariel Rehman MD) Esophageal varices (Acute) Bacteremia due to Streptococcus (Acute) Sepsis (Acute) Discharge planning issues (Acute) DVT prophylaxis (Acute) Gram-positive cocci bacteremia (Acute) Advanced care planning/counseling discussion (Acute) Primary osteoarthritis of left knee (Acute) Injection: 08/14/22; 05/15/2022; 01/19/2022 ([facility]) Primary biliary cholangitis (Chronic) followed by GI [facility], associated with chronically elevated transaminases Cirrhosis (Acute) 2.2021-secondary to the primary biliary cholangitis, followed by GI at [facility] EGD with small varices in 10/2021. Pt unable to tolerate propranolol. Elevated bilirubin (Acute) Chronic due to primary biliary cholangitis Elevated LFTs (Acute) Chronic due to primary biliary cholangitis Portal hypertension with esophageal varices (Chronic) Grade 1. Documented by EGD at [facility] [id number] Grade 2 12/2022 Compression fracture of lumbar vertebra (Acute) Fe deficiency anemia (Acute) History of iron deficiency anemia. She has seen hematology and thought it was due to a mixed etiology Emphysema lung (Acute) Seizure disorder (Chronic) Protein-calorie malnutrition, moderate (Acute) Osteoporosis (Chronic) Elevated INR (Acute) Due to chronic liver disease from PBC/PBS Lymphedema (Acute) Gallstones (Acute) RUQ pain & diarrhea Essential tremor (Acute) Primary osteoarthritis of right knee (Acute) Injection: 08/14/22; 05/15/2022; 01/19/2022 ([facility]) Ascites controlled with medication (Acute) Hypomagnesemia (Acute) Pneumonia (Acute) Pleural effusion (Acute) Medical History Actinic keratosis 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 Currently using a continence dish with knob. Persistent cystocele is present. Consultation with [facility] has been undertaken and she has an in person visit with them at the end of June,. They recommended colpocleisis. Diabetes mellitus Diverticulosis Esophageal ulcer Essential hypertension Gastric ulcer Grade II internal hemorrhoids History of aspiration pneumonia Hypercholesterolemia Hypermetropia Left inguinal hernia Obesity Osteoarthritis Palliative care patient Squamous cell carcinoma of skin of left lower extremity 3.5cm LLE Syncope Synovial cyst of left popliteal space (09/01/16) Torn rotator cuff (06/23/13) Repair rotator cuff by Dr. Kaden Escobedo 06-23-2013 Surgical History Biopsy of breast (04/18/17) benign breast tissue with cyst wall Colonoscopy - IV Sedation 10 + years ago- normal Colonoscopy - MAC (12/31/17) EGD - MAC (12/31/17) ganglion, left ankle H/O inguinal hernia repair History of colpocleisis [place] colpocleisis posterior perineorrhaphy cystoscopy at [facility] 09/05/2022 Nuclear senile cataract Oseotomy (10/06/98) TONNY BILATERAL FEET Rotator Cuff Repair (06/23/13) Right with distal clavical excision Status post Mohs surgery for squamous cell carcinoma of skin Family History Mother , 88 Diabetes Essential hypertension Heart disease Hyperlipidemia Father , 63 Neoplasm BLADDER Sister Hyperlipidemia Breast cancer Brother Diabetes Essential hypertension Hyperlipidemia Neoplasm PROSTATE Prostate cancer Maternal Grandfather No problems noted. Paternal Grandfather No problems noted. Maternal Grandmother Diabetes Paternal Grandmother No problems noted. 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 Pets and animals: Yes Pets and animals: dog(s) Sexually active: No Do you think of yourself as: straight/heterosexual Current gender identity: female What is your relationship status?: How often do you talk on the phone with friends or family?: three or more times per week How often do you get together with friends or relatives?: once per week How often do you attend mandaeism or anabaptism services?: decline to answer Do you belong to any clubs or organized social groups?: no Panel score (0-1 are the most socially isolated patients): 1 What type of physical activity do you participate in: none Frequency: does not exercise Nhung/Congregational: No preference Special nhung needs: No Seatbelt use: always Drive intox or ride w/intox otr flatbed 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 Date GA/Weeks # Preg Succ Route Wgt Sex Labor Lgth Anesth esia Location [facility] 12/13/1953 40 No Yes vaginal Female 10/12/1957 40 No Yes vaginal Male Time Spent with Patient Time Spent with Patient: 45-69 minutes Time was spent: preparing to see the patient(eg.review tests), obtaining and/or reviewing separately otained hiistory, ordering medications,tests, procedures, referring, communicating with other health morning caregiver, indepentently interpreting results, counseling the patient and care coordination
[2023-01-27 14:00] VITALS: PULSE 100; PULSE 106; RESP 16; RESP 18; RESP 24; O2SAT 93
--- NOTE | 2023-01-27 14:14 | CMDISCH_ITS ---
Date of service: 01/27/23 Time of Service: 14:15 LACE Index Scoring Tool Questions: Length of Stay (in days): 4 - 6 Was the patient admitted via the E.D.?: Yes Comorbidities: Any Tumor E.D. Visits: 2 Answers: Total Score: 11 Risk of Readmission: High Risk Care Management Discharge Plan Reason for Hospitalization: Pneumonia. pleural effusion Discharge Plan: Patient is discharged home with no services. She will follow up with her PCP, [facility] infusion room for daily IV antibiotics, and plan of care as instructed. She is transported home via private vehicle by her son. Patient/Family Education Needs: Review of discharge instructions including medications, limitations and follow up plan of care; discuss self management and Ask Me Three.
[2023-01-27 14:57] VITALS: BP 136/82; PULSE 101; TEMP 36.4; O2SAT 93
[2023-01-28 16:33] LABS: Streptococcus Pneumoniae Ag, U Negative (Negative)
== END 2023-01-27 16:41 | disposition home or self-care (01) | DRG 871 ==
LOC: ER 07:14 → MS 07:17
PROVIDERS: Internal Medicine; Admitting Provider Family Medicine; Emergency Provider Emergency Medicine; PCP Family Medicine; Visit Provider Family Medicine
DX: A40.8 Other streptococcal sepsis (principal); J18.9 Pneumonia, unspecified organism; I85.10 Secondary esophageal varices without bleeding; J90 Pleural effusion, not elsewhere classified; K83.01 Primary sclerosing cholangitis; K76.6 Portal hypertension; R18.8 Other ascites; J43.9 Emphysema, unspecified; I10 Essential (primary) hypertension; G40.909 Epilepsy, unspecified, not intractable, without status epilepticus; E11.9 Type 2 diabetes mellitus without complications; I89.0 Lymphedema, not elsewhere classified; G25.0 Essential tremor; K74.3 Primary biliary cirrhosis; D50.9 Iron deficiency anemia, unspecified; E83.42 Hypomagnesemia; M17.0 Bilateral primary osteoarthritis of knee; R79.1 Abnormal coagulation profile; M81.0 Age-related osteoporosis without current pathological fracture; C50.912 Malignant neoplasm of unspecified site of left female breast; K57.90 Diverticulosis of intestine, part unspecified, without perforation or abscess without bleeding; Z87.11 Personal history of peptic ulcer disease; K64.1 Second degree hemorrhoids; E78.00 Pure hypercholesterolemia, unspecified; Z87.891 Personal history of nicotine dependence; G31.84 Mild cognitive impairment of uncertain or unknown etiology; R09.02 Hypoxemia; Z66 Do not resuscitate; I08.3 Combined rheumatic disorders of mitral, aortic and tricuspid valves
CPT/HCPCS: 36410; 36573; 36415; 36569; 51702; 77001; 80048; 80053; 83690; 84145; 87040; 87077; 87449; 87493; 87637; 93306; 94618; 96361; 96365; 96375; 97161; 99285; J1650; 71046; 81003; 82607; 82728; 82746; 83540; 83550; 83605; 83735; 84439; 84443; 85014; 85018; 85025; 86140; 87899; 94667; 94668; 94760; 99222; 99232; 99233; 99239; J0456; J1100; J1940; J2405; J7620

== ENCOUNTER 2023-02-08 01:22 | Outpatient (RCR) | payer MEDICARE, SELFPAY ==
[2023-01-28] MEDS: Normal Saline Flush 10 ML SYR IVP (10:15)
[2023-01-28] MEDS: cefTRIAXone 2 GM/50 ML BAG IVPB (10:15)
[2023-01-29] MEDS: cefTRIAXone 2 GM/50 ML BAG IVPB (10:27)
[2023-01-29] MEDS: Normal Saline Flush 10 ML SYR IVP (11:05)
[2023-01-30] MEDS: Normal Saline Flush 10 ML SYR IVP (11:45)
[2023-01-30] MEDS: cefTRIAXone 2 GM/50 ML BAG IVPB (11:45)
[2023-01-31] MEDS: Normal Saline Flush 10 ML SYR IVP (11:39)
[2023-01-31] MEDS: cefTRIAXone 2 GM/50 ML BAG IVPB (11:39)
[2023-02-01] MEDS: cefTRIAXone 2 GM/50 ML BAG IVPB (11:48)
[2023-02-01] MEDS: Normal Saline Flush 10 ML SYR IVP (11:52)
[2023-02-02] MEDS: cefTRIAXone 2 GM/50 ML BAG IVPB (12:02)
[2023-02-02] MEDS: Normal Saline Flush 10 ML SYR IVP (12:03)
[2023-02-02 12:18] LABS: Abs Immature Grans 0.04 10^3/uL (0.0-0.06); Absolute Basophil Count 0.11 10^3/uL (0.0-0.2); Absolute Monocyte Count 0.96 10^3/uL (0.1-0.8); Absolute Neutrophil Count 5.96 10^3/uL (1.2-6.7); Basophils % 1.3; Eosinophils % 2.3; HCT 32.7 % (36.0-46.0); HGB 10.9 g/dL (11.2-15.7); Immature Grans % 0.5; Lymphocytes % 15.2; MCH 30.2 pg (27.0-33.0); MCHC 33.3 % (32.0-36.0); MCV 91 fL (80-95); MPV 11.4 fL (8.0-11.0); Monocytes % 11.2; Neutrophils % 69.5; Platelet Count 121 10^3/uL (130-400); RBC 3.61 10^6/uL (3.93-5.22); RDW 16.5 % (11.7-14.6); RDW-SD 54.4 fL; WBC 8.57 10^3/uL (4.4-10.8)
[2023-02-02 12:29] LABS: Anion Gap 4.7 mmol/L (3-11); BUN 10 mg/dL (7-18); C-Reactive Protein 2.25 mg/dL (0.0-0.3); CO2 28.3 mmol/L (21.0-32.0); CREATININE 0.5 mg/dL (0.55-1.02); Chloride 105 mmol/L (98-107); Estimated GFR 91.28 (mL/min/1.73m2); Glucose 112 mg/dL (74-106); Potassium 3.9 mmol/L (3.5-5.1); Sodium 138 mmol/L (136-145)
[2023-02-03] MEDS: cefTRIAXone 2 GM/50 ML BAG IVPB (12:13)
[2023-02-04] MEDS: cefTRIAXone 2 GM/50 ML BAG IVPB (11:50)
[2023-02-04 11:54] VITALS: BP 128/54; PULSE 84; RESP 16; O2SAT 95
[2023-02-05] MEDS: cefTRIAXone 2 GM/50 ML BAG IVPB (11:45)
[2023-02-05] MEDS: Normal Saline Flush 10 ML SYR IVP (11:45)
[2023-02-06] MEDS: cefTRIAXone 2 GM/50 ML BAG IVPB (11:39)
[2023-02-06] MEDS: Normal Saline Flush 10 ML SYR IVP (11:40)
[2023-02-07] MEDS: cefTRIAXone 2 GM/50 ML BAG IVPB (11:46)
[2023-02-07] MEDS: Normal Saline Flush 10 ML SYR IVP (11:51)
[2023-02-08] MEDS: Normal Saline Flush 10 ML SYR IVP (11:37)
[2023-02-08] MEDS: cefTRIAXone 2 GM/50 ML BAG IVPB (11:37)
== END 2023-02-08 23:59 | disposition home or self-care (01) ==
LOC: INF 01:22
PROVIDERS: Family Provider Internal Medicine; PCP Family Medicine; Visit Provider Internal Medicine
DX: B95.4 Other streptococcus as the cause of diseases classified elsewhere (principal); A40.8 Other streptococcal sepsis
CPT/HCPCS: 36592; 80048; 96365; 85025; 86140

== ENCOUNTER → 2023-03-07 00:25 | Outpatient (CLI) | payer MEDICARE, SELFPAY ==
--- NOTE | 2023-03-07 08:00 | DI.MAMMO_ITS ---
Exam(s) MG MAMMO SCREENING 60 MIN DUR EXAM: MG MAMMO SCREENING 60 MIN DUR CLINICAL HISTORY: breast cancer screening,personal h/o lt breast ca,z85.3 TECHNIQUE: Bilateral full field digital CC and MLO mammographic images were obtained with 3D tomosyn thesis and utilizing computer aided detection (CAD). COMPARISON: Available for comparison. FINDINGS: Masses/Architectural Distortion: The patient is status post left lumpectomy and radiation therapy. N o suspicious masses or new areas of architectural distortion are seen. Microcalcifications: No suspicious pleomorphic-type are seen. Skin Thickening/Nipple Retraction: Unchanged left breast skin thickening. IMPRESSION: 1. No significant interval change with no specific features of malignancy noted. 2. Unless there is more urgent need, screening mammography is recommended, as per [place] [employer] guidelines. 3. Findings were discussed with the patient on the date of the examination. BI-RADS Category 2 - Benign Findings Breast Density - Category B - Scattered areas of fibroglandular density Breast density category C or D implies that the patient has dense breast tissue. Dense breast tissue is very common and is not abnormal but dense breast tissue can make it harder to find cancer on a ma mmogram. Also, dense breast tissue may increase their breast cancer risk. This information about the result of the mammogram report was provided to the patient to raise their awareness. Use this report when you speak with the patient about their risks for breast cancer, which includes their family hist ory. At that time, you may recommend for more screening tests (Ultrasound or MRI) as they might be us eful based on their risk. A negative radiographic report should not delay biopsy if a dominant or clinically suspicious mass is present. Up to ten percent of cancers are not identified on mammography. A negative report may reinforce clinical impression. Adenosis and dense breasts may obscure an underlying neoplasm. False positive reports average 6 to 10%. Patient will receive a letter notifying them of these results.
== END ==
PROVIDERS: PCP Family Medicine; Visit Provider Family Medicine
DX: Z85.3 Personal history of malignant neoplasm of breast (principal); Z12.31 Encounter for screening mammogram for malignant neoplasm of breast
CPT/HCPCS: 77063; 77067

== ENCOUNTER 2023-03-07 12:00 | Outpatient (RCR) | payer MEDICARE, SELFPAY ==
[2023-02-09 00:10] VITALS: BP 128/54; PULSE 84; RESP 16
[2023-02-09] MEDS: cefTRIAXone 2 GM/50 ML BAG IVPB (12:02)
[2023-02-09] MEDS: Normal Saline Flush 10 ML SYR IVP (12:03)
[2023-02-09 12:32] LABS: Abs Immature Grans 0.02 10^3/uL (0.0-0.06); Absolute Basophil Count 0.09 10^3/uL (0.0-0.2); Absolute Eosinophil Count 0.14 10^3/uL (0.0-0.7); Absolute Lymphocyte Count 0.86 10^3/uL (1.2-3.4); Absolute Monocyte Count 0.69 10^3/uL (0.1-0.8); Absolute Neutrophil Count 3.99 10^3/uL (1.2-6.7); Basophils % 1.6; Eosinophils % 2.4; HCT 30.5 % (36.0-46.0); HGB 10.1 g/dL (11.2-15.7); Immature Grans % 0.3; Lymphocytes % 14.9; MCH 30.1 pg (27.0-33.0); MCHC 33.1 % (32.0-36.0); MCV 91 fL (80-95); Monocytes % 11.9; Neutrophils % 68.9; Platelet Count 118 10^3/uL (130-400); RBC 3.35 10^6/uL (3.93-5.22); RDW 17.2 % (11.7-14.6); RDW-SD 57.4 fL; WBC 5.79 10^3/uL (4.4-10.8)
[2023-02-09 12:42] LABS: Anion Gap 4.9 mmol/L (3-11); BUN 11 mg/dL (7-18); C-Reactive Protein 2.17 mg/dL (0.0-0.3); CO2 28.1 mmol/L (21.0-32.0); CREATININE 0.5 mg/dL (0.55-1.02); Calcium 8.2 mg/dL (8.5-10.1); Chloride 105 mmol/L (98-107); Estimated GFR 91.28 (mL/min/1.73m2); Glucose 127 mg/dL (74-106); Potassium 3.9 mmol/L (3.5-5.1); Sodium 138 mmol/L (136-145)
[2023-02-10] MEDS: cefTRIAXone 2 GM/50 ML BAG IVPB (11:42)
[2023-02-10] MEDS: Normal Saline Flush 10 ML SYR IVP (11:48)
[2023-02-11] MEDS: cefTRIAXone 2 GM/50 ML BAG IVPB (11:45)
[2023-02-11] MEDS: Normal Saline Flush 10 ML SYR IVP (12:28)
[2023-02-12] MEDS: cefTRIAXone 2 GM/50 ML BAG IVPB (11:37)
[2023-02-12] MEDS: Normal Saline Flush 10 ML SYR IVP (11:37)
[2023-02-13] MEDS: Normal Saline Flush 10 ML SYR IVP (11:38)
[2023-02-13] MEDS: cefTRIAXone 2 GM/50 ML BAG IVPB (11:38)
[2023-02-14] MEDS: Normal Saline Flush 10 ML SYR IVP (11:45)
[2023-02-14] MEDS: cefTRIAXone 2 GM/50 ML BAG IVPB (11:45)
[2023-02-15] MEDS: cefTRIAXone 2 GM/50 ML BAG IVPB (11:41)
[2023-02-15] MEDS: Normal Saline Flush 10 ML SYR IVP (11:41)
[2023-02-16] MEDS: Normal Saline Flush 10 ML SYR IVP (11:48)
[2023-02-16] MEDS: cefTRIAXone 2 GM/50 ML BAG IVPB (11:48)
[2023-02-16 12:19] LABS: Abs Immature Grans 0.03 10^3/uL (0.0-0.06); Absolute Basophil Count 0.08 10^3/uL (0.0-0.2); Absolute Eosinophil Count 0.36 10^3/uL (0.0-0.7); Absolute Lymphocyte Count 1.17 10^3/uL (1.2-3.4); Absolute Monocyte Count 0.67 10^3/uL (0.1-0.8); Absolute Neutrophil Count 3.52 10^3/uL (1.2-6.7); Basophils % 1.4; Eosinophils % 6.2; HGB 10.5 g/dL (11.2-15.7); Immature Grans % 0.5; Lymphocytes % 20.1; MCH 29.7 pg (27.0-33.0); MCHC 32.8 % (32.0-36.0); MCV 91 fL (80-95); MPV 11.2 fL (8.0-11.0); Monocytes % 11.5; Neutrophils % 60.3; Platelet Count 125 10^3/uL (130-400); RBC 3.53 10^6/uL (3.93-5.22); RDW 16.4 % (11.7-14.6); RDW-SD 54.6 fL; WBC 5.83 10^3/uL (4.4-10.8)
[2023-02-16 12:28] LABS: Anion Gap 5.9 mmol/L (3-11); BUN 10 mg/dL (7-18); C-Reactive Protein 1.98 mg/dL (0.0-0.3); CO2 27.1 mmol/L (21.0-32.0); CREATININE 0.6 mg/dL (0.55-1.02); Calcium 7.9 mg/dL (8.5-10.1); Chloride 104 mmol/L (98-107); Estimated GFR 87.36 (mL/min/1.73m2); Glucose 116 mg/dL (74-106); Potassium 3.9 mmol/L (3.5-5.1); Sodium 137 mmol/L (136-145)
[2023-02-17] MEDS: cefTRIAXone 2 GM/50 ML BAG IVPB (11:36)
[2023-02-17] MEDS: Normal Saline Flush 10 ML SYR IVP (11:36)
[2023-02-18] MEDS: cefTRIAXone 2 GM/50 ML BAG IVPB (11:40)
[2023-02-19] MEDS: Normal Saline Flush 10 ML SYR IVP ×2 (12:00→12:11)
[2023-02-19] MEDS: cefTRIAXone 2 GM/50 ML BAG IVPB (12:09)
[2023-02-20] MEDS: cefTRIAXone 2 GM/50 ML BAG IVPB (11:31)
[2023-02-20] MEDS: Normal Saline Flush 10 ML SYR IVP (11:37)
[2023-02-21] MEDS: cefTRIAXone 2 GM/50 ML BAG IVPB (11:36)
[2023-02-21] MEDS: Normal Saline Flush 10 ML SYR IVP (11:38)
[2023-02-22] MEDS: cefTRIAXone 2 GM/50 ML BAG IVPB (12:09)
[2023-02-22] MEDS: Normal Saline Flush 10 ML SYR IVP (12:11)
[2023-02-23] MEDS: cefTRIAXone 2 GM/50 ML BAG IVPB (11:40)
[2023-02-23] MEDS: Normal Saline Flush 10 ML SYR IVP (11:41)
[2023-02-23 12:09] LABS: Abs Immature Grans 0.02 10^3/uL (0.0-0.06); Absolute Basophil Count 0.12 10^3/uL (0.0-0.2); Absolute Eosinophil Count 0.35 10^3/uL (0.0-0.7); Absolute Lymphocyte Count 1.28 10^3/uL (1.2-3.4); Absolute Monocyte Count 0.92 10^3/uL (0.1-0.8); Absolute Neutrophil Count 4.71 10^3/uL (1.2-6.7); Basophils % 1.6; Eosinophils % 4.7; HCT 32.4 % (36.0-46.0); HGB 10.8 g/dL (11.2-15.7); Immature Grans % 0.3; Lymphocytes % 17.3; MCH 29.8 pg (27.0-33.0); MCHC 33.3 % (32.0-36.0); MCV 89 fL (80-95); Monocytes % 12.4; Neutrophils % 63.7; Platelet Count 146 10^3/uL (130-400); RBC 3.63 10^6/uL (3.93-5.22); RDW 16.2 % (11.7-14.6); RDW-SD 53.1 fL
[2023-02-23 12:21] LABS: Anion Gap 3.5 mmol/L (3-11); BUN 10 mg/dL (7-18); C-Reactive Protein 2.35 mg/dL (0.0-0.3); CO2 28.5 mmol/L (21.0-32.0); CREATININE 0.6 mg/dL (0.55-1.02); Calcium 8.2 mg/dL (8.5-10.1); Chloride 104 mmol/L (98-107); Estimated GFR 87.36 (mL/min/1.73m2); Glucose 104 mg/dL (74-106); Sodium 136 mmol/L (136-145)
[2023-02-24] MEDS: cefTRIAXone 2 GM/50 ML BAG IVPB (11:36)
[2023-02-25] MEDS: cefTRIAXone 2 GM/50 ML BAG IVPB (11:44)
[2023-02-25] MEDS: Normal Saline Flush 10 ML SYR IVP (11:44)
[2023-02-26] MEDS: cefTRIAXone 2 GM/50 ML BAG IVPB (11:39)
[2023-02-26] MEDS: Normal Saline Flush 10 ML SYR IVP (11:39)
[2023-02-27] MEDS: cefTRIAXone 2 GM/50 ML BAG IVPB (11:37)
[2023-02-27] MEDS: Normal Saline Flush 10 ML SYR IVP (11:39)
[2023-02-28] MEDS: cefTRIAXone 2 GM/50 ML BAG IVPB (11:41)
[2023-03-01] MEDS: cefTRIAXone 2 GM/50 ML BAG IVPB (11:42)
[2023-03-01] MEDS: Normal Saline Flush 10 ML SYR IVP (11:43)
[2023-03-02] MEDS: Normal Saline Flush 10 ML SYR IVP (11:44)
[2023-03-02] MEDS: cefTRIAXone 2 GM/50 ML BAG IVPB (11:44)
[2023-03-02 12:18] LABS: Abs Immature Grans 0.01 10^3/uL (0.0-0.06); Absolute Eosinophil Count 0.25 10^3/uL (0.0-0.7); Absolute Lymphocyte Count 1.07 10^3/uL (1.2-3.4); Absolute Monocyte Count 0.87 10^3/uL (0.1-0.8); Absolute Neutrophil Count 4.55 10^3/uL (1.2-6.7); Basophils % 1.5; Eosinophils % 3.6; HCT 31.7 % (36.0-46.0); HGB 10.6 g/dL (11.2-15.7); Immature Grans % 0.1; Lymphocytes % 15.6; MCH 29.8 pg (27.0-33.0); MCHC 33.4 % (32.0-36.0); MCV 89 fL (80-95); MPV 12.2 fL (8.0-11.0); Monocytes % 12.7; Neutrophils % 66.5; Platelet Count 119 10^3/uL (130-400); RBC 3.56 10^6/uL (3.93-5.22); RDW 16.6 % (11.7-14.6); RDW-SD 53.8 fL; WBC 6.85 10^3/uL (4.4-10.8)
[2023-03-02 12:31] LABS: Anion Gap 7.3 mmol/L (3-11); BUN 15 mg/dL (7-18); C-Reactive Protein 2.36 mg/dL (0.0-0.3); CO2 26.7 mmol/L (21.0-32.0); CREATININE 0.6 mg/dL (0.55-1.02); Calcium 8.4 mg/dL (8.5-10.1); Chloride 103 mmol/L (98-107); Estimated GFR 87.36 (mL/min/1.73m2); Glucose 100 mg/dL (74-106); Sodium 137 mmol/L (136-145)
[2023-03-03] MEDS: cefTRIAXone 2 GM/50 ML BAG IVPB (11:40)
[2023-03-04] MEDS: cefTRIAXone 2 GM/50 ML BAG IVPB (11:43)
[2023-03-05] MEDS: cefTRIAXone 2 GM/50 ML BAG IVPB (11:35)
[2023-03-05] MEDS: Normal Saline Flush 10 ML SYR IVP (11:38)
[2023-03-05 11:55] VITALS: BP 128/54; PULSE 84; RESP 16
[2023-03-06] MEDS: cefTRIAXone 2 GM/50 ML BAG IVPB (11:35)
[2023-03-06] MEDS: Normal Saline Flush 10 ML SYR IVP (11:35)
[2023-03-07] MEDS: cefTRIAXone 2 GM/50 ML BAG IVPB (11:35)
[2023-03-07] MEDS: Normal Saline Flush 10 ML SYR IVP (11:35)
[2023-03-07] MEDS: Bacitracin 1 PACKET (11:36)
== END 2023-03-10 23:59 | disposition home or self-care (01) ==
LOC: INF 12:00
PROVIDERS: Family Provider Internal Medicine; PCP Family Medicine; Visit Provider Internal Medicine
DX: B95.4 Other streptococcus as the cause of diseases classified elsewhere (principal)
CPT/HCPCS: 36592; 80048; 96365; 85025; 86140

== ENCOUNTER → 2023-03-23 10:20 | Outpatient (BNVA) | payer MEDICARE, SELFPAY | PROVIDERS: PCP Family Medicine; Visit Provider Student in an Organized Health Care Education/Training Program | DX: M17.11 Unilateral primary osteoarthritis, right knee (principal); M17.12 Unilateral primary osteoarthritis, left knee | CPT/HCPCS: 20610; J1040 ==

== ENCOUNTER 2023-03-30 02:20 | Outpatient (CLI) | payer MEDICARE, SELFPAY ==
[2023-03-30 12:15] LABS: Abs Immature Grans 0.03 10^3/uL (0.0-0.06); Absolute Basophil Count 0.04 10^3/uL (0.0-0.2); Absolute Eosinophil Count 0.13 10^3/uL (0.0-0.7); Absolute Lymphocyte Count 1.29 10^3/uL (1.2-3.4); Absolute Monocyte Count 1.03 10^3/uL (0.1-0.8); Basophils % 0.3; HCT 36.9 % (36.0-46.0); HGB 12.1 g/dL (11.2-15.7); Immature Grans % 0.2; Lymphocytes % 10.1; MCH 28.9 pg (27.0-33.0); MCHC 32.8 % (32.0-36.0); MCV 88 fL (80-95); MPV 12.6 fL (8.0-11.0); Monocytes % 8.1; Neutrophils % 80.3; Platelet Count 151 10^3/uL (130-400); RBC 4.19 10^6/uL (3.93-5.22); RDW 16.9 % (11.7-14.6); RDW-SD 54.4 fL; WBC 12.73 10^3/uL (4.4-10.8)
[2023-03-30 12:23] LABS: Absolute Neutrophil Count 10.22 10^3/uL (1.2-6.7)
[2023-03-30 12:31] LABS: ALT 74 U/L (14-59); AST 86 U/L (15-37); Albumin 2.4 g/dL (3.4-5.0); Alkaline Phosphatase 258 U/L (46-116); Anion Gap 9.7 mmol/L (3-11); BUN 19 mg/dL (7-18); Bilirubin, Total 2.5 mg/dL (0.2-1.0); CO2 27.3 mmol/L (21.0-32.0); CREATININE 0.6 mg/dL (0.55-1.02); Calcium 8.8 mg/dL (8.5-10.1); Chloride 103 mmol/L (98-107); Estimated GFR 87.36 (mL/min/1.73m2); Glucose 110 mg/dL (74-106); Potassium 3.5 mmol/L (3.5-5.1); Sodium 140 mmol/L (136-145); Total Protein 6.9 g/dL (6.4-8.2)
[2023-03-30 17:42] LABS: ESR (LRH) 51 mm/hr
== END 2023-03-30 02:21 | disposition home or self-care (01) ==
PROVIDERS: PCP Family Medicine; Visit Provider Family Medicine
DX: K74.60 Unspecified cirrhosis of liver (principal); Z00.00 Encounter for general adult medical examination without abnormal findings; E83.42 Hypomagnesemia
CPT/HCPCS: 80053; 85027; 85652; 83735; 85025

== ENCOUNTER 2023-06-22 04:16 | Outpatient (CLI) | payer MEDICARE, SELFPAY ==
[2023-06-22 12:46] LABS: Abs Immature Grans 0.02 10^3/uL (0.0-0.06); Absolute Basophil Count 0.09 10^3/uL (0.0-0.2); Absolute Eosinophil Count 0.21 10^3/uL (0.0-0.7); Absolute Lymphocyte Count 1.31 10^3/uL (1.2-3.4); Absolute Monocyte Count 0.93 10^3/uL (0.1-0.8); Basophils % 1.1; Eosinophils % 2.6; HCT 35.9 % (36.0-46.0); HGB 11.8 g/dL (11.2-15.7); Immature Grans % 0.3; Lymphocytes % 16.5; MCHC 32.9 % (32.0-36.0); MCV 91 fL (80-95); MPV 12.1 fL (8.0-11.0); Monocytes % 11.7; Neutrophils % 67.8; Platelet Count 168 10^3/uL (130-400); RBC 3.93 10^6/uL (3.93-5.22); RDW 16.1 % (11.7-14.6); RDW-SD 53.3 fL; WBC 7.96 10^3/uL (4.4-10.8)
== END 2023-06-22 04:17 | disposition home or self-care (01) ==
LOC: LOS 04:16
PROVIDERS: PCP Family Medicine; Visit Provider Family Medicine
DX: D72.829 Elevated white blood cell count, unspecified (principal); I89.0 Lymphedema, not elsewhere classified
CPT/HCPCS: 36415; 83735; 84132; 85025

== ENCOUNTER 2023-06-25 09:10 | Emergency (ER) | payer MEDICARE, SELFPAY ==
[2023-06-25] VITALS (59 sets, daily range): BP systolic 66–184; BP diastolic 32–100; PULSE 55–141; RESP 14–36; TEMP 36.7–38.6; O2SAT 89–100
--- NOTE | 2023-06-25 09:15 | RT.EKG_ITS ---
APPROVED REPORT Exam: Resting ECG Reason for Exam: fever, rigors, hypoxia Patient Location: E HR:132 bpm ECG Measurements Heart Rate 132 AXIS IL 180 P 8 QRSd 85 QRS 22 QT 316 T 76 QTc 470 Conclusion Sinus tachycardia...rate> 99 Multiple ventricular premature complexes...V complexes w/ short R-R intervls Probable left atrial enlargement...P >50mS, <-0.10mV V1 sinus tachycardia, poor baseline due to rigors
--- NOTE | 2023-06-25 09:16 | W.ED.GENAD ---
HPI General Stated Complaint: GenMedical MOISES: 3 Date/Time Provider Initiated Documentation: 06/25/23 09:15. HPI Narrative: 88 year-old female presents to ED today by POV/ambulating, brought by her grandson, with a chief complaint of respiratory illness, fever with rigors, and one episode vomiting this morning- reports onset only today. Quality described as generalized body aches, cough, shortness of breath, fever, no radiation to active chest pain, significant abdominal pain, flank pain, severe headache. Severity is described as 9/10. Palliating factors include nothing attempted yet. Provoking factors include nothing specific. Events leading up to the incident/Associated Symptoms: Patient is vaccinated and boosted for Covid-19. Patient not anticoagulated. Related Data Home Medications Medication Instructions Recorded Confirmed cholecalciferol (vitamin D3) 50 1,000 unit PO DAILY 09/01/16 06/25/23 mcg (2,000 unit) capsule (Vitamin D3) calcium carbonate 600 mg calcium 600 mg PO DAILY PRN Acid Reflux 01/05/22 06/25/23 (1,500 mg) tablet (Calcium) milk thistle 150 mg capsule 150 mg PO DAILY 01/05/22 06/25/23 potassium chloride 40 mEq/15 mL 40 meq (15 mL) PO TID #1,350 mL 10/24/22 06/25/23 oral liquid ursodiol 300 mg capsule 300 mg PO TID 12/06/22 06/25/23 Lactobacillus acidophilus 1 1,000 mmu cells PO DAILY #60 caps 01/27/23 06/25/23 billion cell capsule magnesium gluconate 27 mg 27 mg PO BID #180 tabs 01/27/23 06/25/23 magnesium (500 mg) tablet albuterol sulfate 90 mcg/actuation 1 puff inhalation Q6H PRN #8.5 04/10/23 06/25/23 aerosol inhaler (ProAir HFA) grams furosemide 20 mg tablet 40 mg PO .COMPLEX 04/10/23 06/25/23 levetiracetam 1,000 mg tablet 1,000 mg PO BID #180 tabs 06/19/23 06/25/23 Previous Rx's Medication Instructions Recorded potassium chloride 40 mEq/15 mL 40 meq (15 mL) PO TID #1,350 mL 10/24/22 oral liquid Lactobacillus acidophilus 1 1,000 mmu cells PO DAILY #60 caps 01/27/23 billion cell capsule magnesium gluconate 27 mg 27 mg PO BID #180 tabs 01/27/23 magnesium (500 mg) tablet albuterol sulfate 90 mcg/actuation 1 puff inhalation Q6H PRN #8.5 04/10/23 aerosol inhaler (ProAir HFA) grams levetiracetam 1,000 mg tablet 1,000 mg PO BID #180 tabs 06/19/23 Allergies Allergy/AdvReac Type Severity Reaction Status Date / Time spironolactone AdvReac Intermediate Verified 06/25/23 10:16 red yeast rice Allergy rash Uncoded 06/25/23 10:16 Review of Systems All systems reviewed & are unremarkable except as noted in HPI and below PFSH All Active Problems (Updated 06/25/23 @ 15:45 by JESSICA Renee) Pneumonia (Acute) Decompensation of cirrhosis of liver (Acute) Non-ST elevation UT (NSTEMI) (Acute) Septic shock (Acute) Primary osteoarthritis of right knee (Acute) Injection: 03/23/23; 11/20/2022; 08/14/22; 05/15/2022; 01/19/2022 ([facility]) Essential tremor (Acute) Gallstones (Acute) RUQ pain & diarrhea Lymphedema (Acute) Elevated INR (Acute) 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 She has seen hematology and thought it was due to a mixed etiology Compression fracture of lumbar vertebra (Acute) Portal hypertension with esophageal varices (Chronic) Grade 1. 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 Pt unable to tolerate propranolol. 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 Currently using a continence dish with knob. Persistent cystocele is present. Consultation with [facility] has been undertaken and she has an in person visit with them at the end of June,. They recommended colpocleisis. 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 Kaden Escobedo 06-23-2013 Surgical History History of colpocleisis LeFort colpocleisis posterior perineorrhaphy cystoscopy at [facility] 09/05/2022 Status post Mohs surgery for squamous cell carcinoma of skin H/O inguinal hernia repair ganglion, left ankle Rotator Cuff Repair (06/23/13) Right with distal clavical excision Oseotomy (10/06/98) TONNY BILATERAL FEET Nuclear senile cataract EGD - MAC (12/31/17) Colonoscopy - MAC (12/31/17) Colonoscopy - IV Sedation 10 + years ago- normal Biopsy of breast (04/18/17) benign breast tissue with cyst wall Family History Mother , 88 Diabetes Essential hypertension Heart disease Hyperlipidemia Father , 63 Neoplasm BLADDER Sister Hyperlipidemia Breast cancer Brother Diabetes Essential hypertension Hyperlipidemia Neoplasm PROSTATE Prostate cancer Maternal Grandfather No problems noted. Paternal Grandfather No problems noted. Maternal Grandmother Diabetes Paternal Grandmother No problems noted. 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 Pets and animals: Yes Pets and animals: dog(s) Sexually active: No Do you think of yourself as: straight/heterosexual Current gender identity: female What is your relationship status?: How often do you talk on the phone with friends or family?: three or more times per week How often do you get together with friends or relatives?: once per week How often do you attend sikhism or pentecostal services?: decline to answer Do you belong to any clubs or organized social groups?: no Panel score (0-1 are the most socially isolated patients): 1 What type of physical activity do you participate in: none Frequency: does not exercise Nhung/Faith: No preference Special nhung needs: No Seatbelt use: always Drive intox or ride w/intox commercial truck 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 Date GA/Weeks # Preg Succ Route Wgt Sex Labor Lgth Anesthesia Location Prov Complic 12/13/1955 40 No Yes vaginal Female 10/12/1959 40 No Yes vaginal Male Exam Narrative Exam Narrative: GENERAL APPEARANCE: Malnourished, toxic, awake and alert, atraumatic, moderate acute distress, shaking with rigors SKIN: Warm, pink, dry, intact, without rashes/lesions/ulcerations. HEAD: Normocephalic, atraumatic, normal hair distribution for gender/age. EYES: Pupils PERRLA, EOMs intact without nystagmus, normal conjunctiva, no exudates on lids/lashes. ENT: Nares patent, no circumoral cyanosis, no facial swelling, dry mucuous membranes. NECK: Supple, trachea midline, painless cervical ROM, no nuchal rigidity. LUNGS/CHEST: Lungs CTA bilaterally- no severe rhonchi/rales diffusel, no wheezing, labored respirations, normal A/P diameter, symmetrical expansion, no chest wall deformity HEART (CV/PV): Tachycardic regular rate and rhythm without murmur, 1+ pitting edema in legs, no JVD. ABDOMEN: Soft, non-distended, no guarding, no tenderness, some distention suprapubically, negative Rovsing's, negative Santa's sign. MSK: Normal ROM, no swelling/deformity to bilateral UEs or LEs, moving all extremities without weakness, no cyanosis, spine midline without tenderness, normal curvature. NEURO: Mental Status AAOx4 - alert to person, place, time, events No facial droop, no forehead involvement. Motor: No focal weakness - strength 5/5 in bilateral UEs and LEs, proximal and distal, symmetric. Sensory: sensation intact to light touch globally. Gait NT. PSYCH: euthymic, cooperative, pleasant, appropriate speech Course Vital Signs Vital signs: Vital Signs Temperature 38.6 C H 06/25/23 09:12 Pulse 79 06/25/23 09:12 Respiratory Rate 18 06/25/23 09:12 Blood Pressure 117/100 H 06/25/23 09:12 Pulse Oximetry 89 L 06/25/23 09:12 Temperature 38.6 C H 06/25/23 09:12 Temperature Source Temporal Artery Scan 06/25/23 09:12 Pulse 79 06/25/23 09:12 Respiratory Rate 18 06/25/23 09:12 Blood Pressure 117/100 H 06/25/23 09:12 Blood Pressure Position Sitting 06/25/23 09:12 Pulse Oximetry 89 L 06/25/23 09:12 Oxygen Delivery Method Room Air 06/25/23 09:12 Oxygen Flow Rate 0 06/25/23 09:12 Medical Decision Making This dictation utilizes [id number] dictation software and may contain unedited grammatical errors. 88 y/o F presents to ED today with a chief complaint of rigors, starting this morning, endorses respiratory syndrome, denies severe ABD pain, denies active chest pain, is febrile, was 88% SpO2 on RA on arrival, placed on 4L by MO. Patients' family states she's had a cough for about 3 weeks. Patient had one episode vomiting this morning but denies abdominal complaints. Patients' medical history: History of left breast cancer, history of squamous cell carcinoma, history of aspiration pneumonia, palliative care patient, history syncope, asthma, gastric and esophageal ulcers, hypertension, diabetes mellitus, essential tremor, seizure disorder, chronic liver disease, chronic anemia, emphysema, cirrhosis, history of lymphedema, history of biliary cholangiitis. Family and social history: Lives at home independently, drives, has a dog. Pertinent exam findings / vital signs include hypoxia, rigors, tachycardia, toxic vitals. Differential / pathologies of concern include seizure vs rigors, pneumonia, viral syndrome, ACS, CHF, less likely meningitis, biliary pathology, UTI, Decompensated Cirrhosis, Bacteremia. Diagnostic studies of: -Covid/Flu Ag POC, CBC, CMP, Lipase, Lactate, Procalcitonin, VBG, Trop I, BNP, Magnesium, CK, TSH, CRP/ESR, Blood Cx's, Keppra Level (send-out), EKG, CXR. -EKG shows sinus tachycardia at 132 bpm with P waves followed by narrow complex QRS with normal axis, no significant ST changes but there is significant movement artifact from the patient's rigors, will repeat with control of rigors with antipyretics and antiseizure medicines. -Initial Lactate 5.9 - sepsis, initiated 30cc/kg bolus per IBW of 1560mL total. q2hr Lacate shows 3.3. -VBG 7.28, low threshhold for BiPAP but patient has history of aspiration pneumonia, discussed with EM Attending Dr. Liz. Emmy with re-evaluation for now. -UA shows trace leuk esterase, micro shows 5-10 WBCs -CBC no leukocytosis, question if initial lactate is dehydration, or worsening cirrhosis and failure to clear lactate -ESR WNL - CRP mild elev 3.14 -POC Covid/Flu Ag negative -Initial troponin 218, repeat 3hr shows 2208. BNP WNL, no not suspect CHF -CMP shows 4.4 bilirubin, has been high in the past Add Liver panel for conjugated value -Alk Phos chronic elev, ALT chronic elev, no JAY -Lipase WNL -Mg++ mildly low at 1.7, less priority at this time for IV repletion than other medicines running -CK negative, no rhabdo -TSH elevated to 4.24, has history of significant elev. FT4 WNL. -Procalcitonin 0.3, less suspicious of sepsis with value <0.5 Added PT(INR)/PTT, Liver Panel -PT 16.1, INR 1.7 -Liver Panel shows significantly elevated conjugated bilirubin at 3.8, obstructive pattern Add U/S ABD RUQ for CBD dilatation check XR Chest was ordered at 0917- interventional radiologist's had no inquired and not performed by 1154, changed to portable chest and requested they come over to perform STAT -CXR shows question pulmonary edema- but some areas are more dense than others, I do question multi-focal PNA. -US ABD RUQ shows shrunken liver, no CBD dilatation, no gallstones, normal pancreas- do not suspect biliary cholangiitis. Interventions of: -IVF 1L NS bolus intially- upgraded to 1560mL sepsis bolus- 30cc/kg per IBW, IV Tylenol, IV Toradol. -1.5gm IV Keppra, 2mg IV Ativan for seizure prophylaxis. -9mL DuoNeb -Empiric Cefepime/Azithromycin for pneumonia as source, will cover UTI with Cefepime, awaiting CMP result for SCr with patients likely profound dehydration. 1150- Patient returned from / ABD RUQ, was found to be hypotensive 89/38 - getting the last 500mL of their fluid bolus with azithromycin, will re-evaluate for need for central access or vasopressors after this bolus. Either NorEpi or Dopamine for pressor choice, discussed with EM Attending Dr. Liz. 1200- Discussed with patient and in front of her children as witness care planning- states she is a DNR, but does agree to possible intubation if needed, disagrees with CPR. Agrees to Central Line. 1210- still hypotensive after fluids, mild increase in pedal edema to 2+ *added maintenance fluids at 150mL/hr as patient is still hypotensive and completed fluid bolus of 1500mL EM Attending Dr. Liz consulted, performed bedside ECHO - hyperdynamic globally in the heart, pleural effusion on R, some B-lines on left. Will give 40mg IV Lasix, he is placing a Central IV in R IJ Starting 5mcg/min NorEpi infusion to support blood pressure Molina catheter inserted by bottling line operator at this time. Starting albumin infusion, adding Vancomycin to cover potential MRSA bacteremia. Consulting with [facility] Hospitalist service for potential ICU admission for Sepsis, fever, possible multifocal pneumonia vs bacteremia from prior hospitalization and prior PNA. Unlikely SBP- abdomen is non-tender and soft. [facility] Hospitalist Dr. Sanchez provisionally accepts patient, added CTA Chest to r/o PE as cause- patient does have tachycardia, mild hypoxia, denied CP, and was febrile- if no large PE, can be ICU admission [facility] today. Central line placed, confirmed with CXR, patient had 2 brief <3 second runs of VT during placement, repeat troponin resulted 2208. Patient could've had an NSTEMI and is now going into CHF. 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 -Repeat EKG shows no STEMI, sinus tachy at 118, no ST changes, normal QTc 1430: nurse staff community health states contrast in her arm, IV blew while attempting CTA. 1504: Accepted to MICU at [facility] with the Green Team; accepting physician Dr. Cooper. Asked for [facility] transfer as we usually have difficulty finding transport personnel for critical patients, they recommend starting Vasopressin in 5-10 minutes if he MAPS do not improve. Started Vasopressin at 0.01, titrate to MAP 65. 1515: [facility] will transport, bed assigned. 1542: [facility] here for transfer - FSBS 58, giving D10 for transfer Disposition of Septic Shock, Pneumonia, Decompensation of Cirrhosis of Liver, Non-ST elevation UT (NSTEMI). Patient verbalized understanding of the plan and return to ED criteria and engaged in shared decision making. Medical Records Medical records reviewed: Yes I reviewed the patient's medical records. Imaging Data Radiologic Study: Attestation: I personally reviewed and interpreted this imaging study as follows: Imaging: X-Ray Radiologist's impression: EXAM: XR PORTABLE CHEST AP CLINICAL HISTORY: shortness of breath TECHNIQUE: 2D digital imaging was performed. COMPARISON: CR XR LINE PLACEMENT PICC/CVA from 01/26/2023 CR XR LINE PLACEMENT PICC/CVA from 01/26/2023 FINDINGS: Exam extremely limited due to lack of pulmonary inflation, under penetration LUNGS: Increased diffuse bilateral pulmonary markings could indicate pulmonary edema. No pleural abnormality seen. HEART: Mostly obscured. AORTA: Normal diameter. BONES: Unremarkable for age. Soft tissues: Surgical clips left lateral chest. IMPRESSION: Limited exam. Findings suspicious for pulmonary edema. Radiologic Study #2: Imaging: Ultrasound Radiologist's impression: EXAM: US ABDOMEN LIMITED CLINICAL HISTORY: elevated bili:conj bili - hx cholangiitis TECHNIQUE: Ultrasound abdomen performed using standard protocol. COMPARISON: CT CT ABDOMEN WO/W from 01/17/2023 FINDINGS: Exam somewhat limited by patient's inability to breath hold. LIVER: Shrunken, cirrhotic appearance. No focal liver lesions are seen. GALLBLADDER: No evidence of cholelithiasis. No evidence of wall thickening. No pericholecystic fluid identified. SANTA'S SIGN: Negative. BILIARY SYSTEM: No intrahepatic or extrahepatic biliary ductal dilation. Right kidney: No evidence of renal calculi. No evidence of hydronephrosis. No renal mass or cyst identified. PANCREAS: Normal where visualized. ABDOMINAL AORTA AND IVC: Visualized portions normal caliber. ASCITES: Ascites noted around liver and gallbladder. IMPRESSION: Shrunken cirrhotic appearing liver. Ascites. No biliary dilatation. Radiologic Study #3: Imaging: X-Ray My impression: Post-Central Line Study - tip projects into upper right atrium discussed with Dr. Liz. Radiologist's impression: EXAM: XR PORTABLE CHEST AP POST LINEz CLINICAL HISTORY: central line placement TECHNIQUE: 2D digital imaging was performed. COMPARISON: CR XR LINE PLACEMENT PICC/CVA from 01/26/2023 CR XR PORTABLE CHEST AP from 06/25/2023 FINDINGS: Exam is limited by poor pulmonary inflation. A central line has been inserted via the right jugular. The tip appears to project in the upper right atrium. LUNGS: On diffuse infiltrates versus pulmonary edema. Question tiny right pleural effusion. No pneumothorax. HEART: Normal size. AORTA: Normal diameter. Calcified. BONES: Unremarkable for age. Soft tissues: Unremarkable. IMPRESSION: Central line tip projects in the upper right atrium Diffuse pulmonary edema again noted. Radiologic Study #4: Imaging: CT Scan My impression: PE Study - peripheral IV blown, contrast in arm, read as Ct wo contrast Radiologist's impression: EXAM: CT CHEST WO CLINICAL HISTORY: ?PE TECHNIQUE: Imaging Protocol: Axial computed tomography images with coronal and sagittal reformatted images were created and reviewed CONTRAST MATERIAL: Intravenous: Omnipaque 350 Contrast volume:structured data ml. COMPARISON: CT CT CHEST PE CTA from 09/23/[address] ABDOMEN WO/W from 01/17/2023 CR XR PORTABLE CHEST AP POST LINE from 06/25/2023 FINDINGS: Exam is limited by patient motion. There is a moderate to large-sized pleural effusion, smaller than on prior CT. Adjacent atelectatic lung. Heart mildly enlarged. Right internal jugular central venous catheter with tip in upper right atrium. Emphysematous changes in the upper lobes. Scarring again noted anterior left upper lobe. Stable T10 and T12 compression fractures. Evaluation of upper abdomen limited due to motion and streak artifact. Large quantity of ascites and cirrhotic liver again noted. Splenomegaly.. IMPRESSION: Moderate to large right pleural effusion and adjacent atelectasis. Cirrhotic liver and ascites. Lab Data Lab results reviewed: Yes I reviewed the patient's lab results. Labs: 06/25/23 10:25 Blood Blood Culture - Pending 06/25/23 09:40 Urine - Reflex from Ua Urine Culture - Pending 06/25/23 09:45 Blood Blood Culture - Pending Laboratory Tests Range/Units 06/25/23 06/25/23 06/25/23 09:40 09:45 09:45 WBC (4.4-10.8) 10^3/uL 4.76 RBC (3.93-5.22) 10^6/uL 4.24 Hgb (11.2-15.7) g/dL 12.8 Hct (36.0-46.0) % 39.3 MCV (80-95) fL 93 MCH (27.0-33.0) pg 30.2 MCHC (32.0-36.0) % 32.6 RDW (11.7-14.6) % 16.3 H Plt Count (130-400) 10^3/uL 161 MPV (8.0-11.0) fL 11.9 H Immature Gran % 0.6 Neutrophils % 84.6 Lymphocytes % 12.0 Monocytes % 1.1 Eosinophils % 1.1 Basophils % 0.6 Nucleated RBC % (0.0-0.3) % 0.0 Absolute Neutrophils (1.2-6.7) 10^3/uL 4.03 Absolute Lymphocytes (1.2-3.4) 10^3/uL 0.57 L Absolute Monocytes (0.1-0.8) 10^3/uL 0.05 L Absolute Eosinophils (0.0-0.7) 10^3/uL 0.05 Absolute Basophils (0.0-0.2) 10^3/uL 0.03 ESR (0-30) mm/hr 25 PT (9.1-11.1) sec INR (0.9-1.1) APTT (23.6-32.8) sec VBG pH (7.31-7.41) 7.28 L VBG pCO2 (41-51) mmHg 53 H VBG pO2 mmHg 29 VBG HCO3 (23-28) mmol/L 24 VBG Total CO2 (24-29) mmol/L 23 L VBG O2 Saturation % 42 VBG Base Excess (-2-3) mmol/L -2 VBG Lactate (0.6-1.4) mmol/L 5.8 H* Sodium (136-145) mmol/L 142 Potassium (3.5-5.1) mmol/L 3.5 Chloride (98-107) mmol/L 105 Carbon Dioxide (21.0-32.0) mmol/L 24.7 Anion Gap (3-11) mmol/L 12.3 H BUN (7-18) mg/dL 14 Creatinine (0.55-1.02) mg/dL 0.9 Est GFR (CKD-EPI 2020) (mL/min/1.73m2) 62.26 Glucose (74-106) mg/dL 81 Calcium (8.5-10.1) mg/dL 8.7 Magnesium (1.8-2.4) mg/dL 1.7 L Total Bilirubin (0.2-1.0) mg/dL 4.4 H Cancelled Conjugated Bilirubin (0.0-0.2) mg/dL 3.8 H AST (15-37) U/L ALT (14-59) U/L Alkaline Phosphatase (46-116) U/L Creatine Kinase (26-192) U/L Troponin I (< or =60) ng/L C-Reactive Protein (0.0-0.3) mg/dL NT-Pro-B Natriuret Pep (<300) pg/mL Total Protein (6.4-8.2) g/dL Albumin (3.4-5.0) g/dL Lipase (16-77) U/L Procalcitonin ng/mL TSH (0.36-3.74) uIU/mL Free T4 (0.76-1.46) ng/dL Urine Color (Yellow) Yellow Urine Clarity (Clear) Clear Urine pH (5-8) 6.0 Ur Specific [place] (1.005-1.025) 1.020 Urine Protein (Negative) mg/dL Negative Urine Ketones (Negative) mg/dL Negative Urine Blood (Negative) Negative Urine Nitrite (Negative) Negative Urine Bilirubin (Negative) Negative Urine Urobilinogen (Up to 0.2) mg/dL 0.2 Ur Leukocyte Esterase (Negative) Trace H Urine RBC (0-2) HPF 0-2 Urine WBC (0-5) HPF 5-10 Ur Epithelial Cells (Negative) HPF Few Urine Crystals (Negative) HPF Negative Urine Bacteria (Negative) HPF Few Urine Casts (Negative) LPF Negative Urine Mucus (Negative) Negative Ur Culture Indicated? Yes Urine Glucose (Negative) mg/dL Negative Range/Units 06/25/23 06/25/23 06/25/23 09:45 09:45 09:45 WBC (4.4-10.8) 10^3/uL RBC (3.93-5.22) 10^6/uL Hgb (11.2-15.7) g/dL Hct (36.0-46.0) % MCV (80-95) fL MCH (27.0-33.0) pg MCHC (32.0-36.0) % RDW (11.7-14.6) % Plt Count (130-400) 10^3/uL MPV (8.0-11.0) fL Immature Gran % Neutrophils % Lymphocytes % Monocytes % Eosinophils % Basophils % Nucleated RBC % (0.0-0.3) % Absolute Neutrophils (1.2-6.7) 10^3/uL Absolute Lymphocytes (1.2-3.4) 10^3/uL Absolute Monocytes (0.1-0.8) 10^3/uL Absolute Eosinophils (0.0-0.7) 10^3/uL Absolute Basophils (0.0-0.2) 10^3/uL ESR (0-30) mm/hr PT (9.1-11.1) sec INR (0.9-1.1) APTT (23.6-32.8) sec VBG pH (7.31-7.41) VBG pCO2 (41-51) mmHg VBG pO2 mmHg VBG HCO3 (23-28) mmol/L VBG Total CO2 (24-29) mmol/L VBG O2 Saturation % VBG Base Excess (-2-3) mmol/L VBG Lactate (0.6-1.4) mmol/L Sodium (136-145) mmol/L Potassium (3.5-5.1) mmol/L Chloride (98-107) mmol/L Carbon Dioxide (21.0-32.0) mmol/L Anion Gap (3-11) mmol/L BUN (7-18) mg/dL Creatinine (0.55-1.02) mg/dL Est GFR (CKD-EPI 2020) (mL/min/1.73m2) Glucose (74-106) mg/dL Calcium (8.5-10.1) mg/dL Magnesium (1.8-2.4) mg/dL Total Bilirubin (0.2-1.0) mg/dL Conjugated Bilirubin (0.0-0.2) mg/dL Cancelled AST (15-37) U/L 90 H Cancelled ALT (14-59) U/L 48 Cancelled Alkaline Phosphatase (46-116) U/L 225 H Creatine Kinase (26-192) U/L Troponin I (< or =60) ng/L C-Reactive Protein (0.0-0.3) mg/dL NT-Pro-B Natriuret Pep (<300) pg/mL Total Protein (6.4-8.2) g/dL Albumin (3.4-5.0) g/dL Lipase (16-77) U/L Procalcitonin ng/mL TSH (0.36-3.74) uIU/mL Free T4 (0.76-1.46) ng/dL Urine Color (Yellow) Urine Clarity (Clear) Urine pH (5-8) Ur Specific [place] (1.005-1.025) Urine Protein (Negative) mg/dL Urine Ketones (Negative) mg/dL Urine Blood (Negative) Urine Nitrite (Negative) Urine Bilirubin (Negative) Urine Urobilinogen (Up to 0.2) mg/dL Ur Leukocyte Esterase (Negative) Urine RBC (0-2) HPF Urine WBC (0-5) HPF Ur Epithelial Cells (Negative) HPF Urine Crystals (Negative) HPF Urine Bacteria (Negative) HPF Urine Casts (Negative) LPF Urine Mucus (Negative) Ur Culture Indicated? Urine Glucose (Negative) mg/dL Range/Units 06/25/23 06/25/23 06/25/23 09:45 09:45 09:45 WBC (4.4-10.8) 10^3/uL RBC (3.93-5.22) 10^6/uL Hgb (11.2-15.7) g/dL Hct (36.0-46.0) % MCV (80-95) fL MCH (27.0-33.0) pg MCHC (32.0-36.0) % RDW (11.7-14.6) % Plt Count (130-400) 10^3/uL MPV (8.0-11.0) fL Immature Gran % Neutrophils % Lymphocytes % Monocytes % Eosinophils % Basophils % Nucleated RBC % (0.0-0.3) % Absolute Neutrophils (1.2-6.7) 10^3/uL Absolute Lymphocytes (1.2-3.4) 10^3/uL Absolute Monocytes (0.1-0.8) 10^3/uL Absolute Eosinophils (0.0-0.7) 10^3/uL Absolute Basophils (0.0-0.2) 10^3/uL ESR (0-30) mm/hr PT (9.1-11.1) sec INR (0.9-1.1) APTT (23.6-32.8) sec VBG pH (7.31-7.41) VBG pCO2 (41-51) mmHg VBG pO2 mmHg VBG HCO3 (23-28) mmol/L VBG Total CO2 (24-29) mmol/L VBG O2 Saturation % VBG Base Excess (-2-3) mmol/L VBG Lactate (0.6-1.4) mmol/L Sodium (136-145) mmol/L Potassium (3.5-5.1) mmol/L Chloride (98-107) mmol/L Carbon Dioxide (21.0-32.0) mmol/L Anion Gap (3-11) mmol/L BUN (7-18) mg/dL Creatinine (0.55-1.02) mg/dL Est GFR (CKD-EPI 2020) (mL/min/1.73m2) Glucose (74-106) mg/dL Calcium (8.5-10.1) mg/dL Magnesium (1.8-2.4) mg/dL Total Bilirubin (0.2-1.0) mg/dL Conjugated Bilirubin (0.0-0.2) mg/dL AST (15-37) U/L ALT (14-59) U/L Alkaline Phosphatase (46-116) U/L Cancelled Creatine Kinase (26-192) U/L 58 Troponin I (< or =60) ng/L 218 H* C-Reactive Protein (0.0-0.3) mg/dL 3.14 H NT-Pro-B Natriuret Pep (<300) pg/mL 110 Total Protein (6.4-8.2) g/dL 7.4 Cancelled Albumin (3.4-5.0) g/dL 2.2 L Cancelled Lipase (16-77) U/L 23 Procalcitonin ng/mL 0.3 TSH (0.36-3.74) uIU/mL 4.24 H Free T4 (0.76-1.46) ng/dL 1.39 Urine Color (Yellow) Urine Clarity (Clear) Urine pH (5-8) Ur Specific [place] (1.005-1.025) Urine Protein (Negative) mg/dL Urine Ketones (Negative) mg/dL Urine Blood (Negative) Urine Nitrite (Negative) Urine Bilirubin (Negative) Urine Urobilinogen (Up to 0.2) mg/dL Ur Leukocyte Esterase (Negative) Urine RBC (0-2) HPF Urine WBC (0-5) HPF Ur Epithelial Cells (Negative) HPF Urine Crystals (Negative) HPF Urine Bacteria (Negative) HPF Urine Casts (Negative) LPF Urine Mucus (Negative) Ur Culture Indicated? Urine Glucose (Negative) mg/dL Range/Units 06/25/23 06/25/23 06/25/23 11:02 13:22 15:45 WBC (4.4-10.8) 10^3/uL RBC (3.93-5.22) 10^6/uL Hgb (11.2-15.7) g/dL Hct (36.0-46.0) % MCV (80-95) fL MCH (27.0-33.0) pg MCHC (32.0-36.0) % RDW (11.7-14.6) % Plt Count (130-400) 10^3/uL MPV (8.0-11.0) fL Immature Gran % Neutrophils % Lymphocytes % Monocytes % Eosinophils % Basophils % Nucleated RBC % (0.0-0.3) % Absolute Neutrophils (1.2-6.7) 10^3/uL Absolute Lymphocytes (1.2-3.4) 10^3/uL Absolute Monocytes (0.1-0.8) 10^3/uL Absolute Eosinophils (0.0-0.7) 10^3/uL Absolute Basophils (0.0-0.2) 10^3/uL ESR (0-30) mm/hr PT (9.1-11.1) sec 16.1 H INR (0.9-1.1) 1.7 H APTT (23.6-32.8) sec 28.2 VBG pH (7.31-7.41) VBG pCO2 (41-51) mmHg VBG pO2 mmHg VBG HCO3 (23-28) mmol/L VBG Total CO2 (24-29) mmol/L VBG O2 Saturation % VBG Base Excess (-2-3) mmol/L VBG Lactate (0.6-1.4) mmol/L 3.3 H* Sodium (136-145) mmol/L Potassium (3.5-5.1) mmol/L Chloride (98-107) mmol/L Carbon Dioxide (21.0-32.0) mmol/L Anion Gap (3-11) mmol/L BUN (7-18) mg/dL Creatinine (0.55-1.02) mg/dL Est GFR (CKD-EPI 2020) (mL/min/1.73m2) Glucose (74-106) mg/dL Calcium (8.5-10.1) mg/dL Magnesium (1.8-2.4) mg/dL Total Bilirubin (0.2-1.0) mg/dL Conjugated Bilirubin (0.0-0.2) mg/dL AST (15-37) U/L ALT (14-59) U/L Alkaline Phosphatase (46-116) U/L Creatine Kinase (26-192) U/L Troponin I (< or =60) ng/L 2208 H* Cancelled C-Reactive Protein (0.0-0.3) mg/dL NT-Pro-B Natriuret Pep (<300) pg/mL Total Protein (6.4-8.2) g/dL Albumin (3.4-5.0) g/dL Lipase (16-77) U/L Procalcitonin ng/mL TSH (0.36-3.74) uIU/mL Free T4 (0.76-1.46) ng/dL Urine Color (Yellow) Urine Clarity (Clear) Urine pH (5-8) Ur Specific [place] (1.005-1.025) Urine Protein (Negative) mg/dL Urine Ketones (Negative) mg/dL Urine Blood (Negative) Urine Nitrite (Negative) Urine Bilirubin (Negative) Urine Urobilinogen (Up to 0.2) mg/dL Ur Leukocyte Esterase (Negative) Urine RBC (0-2) HPF Urine WBC (0-5) HPF Ur Epithelial Cells (Negative) HPF Urine Crystals (Negative) HPF Urine Bacteria (Negative) HPF Urine Casts (Negative) LPF Urine Mucus (Negative) Ur Culture Indicated? Urine Glucose (Negative) mg/dL Quality:SDOH Health Related Social Needs: No Data to Display Discharge Plan Disposition Patient Disposition: Transfer-Acute Inpatient Care Specific Acute Inpt Facility: [facility] Discharge Details Clinical Impression: Septic shock, Non-ST elevation UT (NSTEMI), Decompensation of cirrhosis of liver, Pneumonia Primary Care Provider: Macarena Blankenship ED Provider: Hany Gary Home Meds and New Rx's Prescriptions: No Action milk thistle 150 mg capsule 150 mg PO DAILY Patient Comments: 01/05/22- pt unsure of dose Rx Instructions: give with meal/snack calcium carbonate [Calcium 600] 600 mg calcium (1,500 mg) tablet 600 mg PO DAILY PRN (Reason: Acid Reflux) Patient Comments: 01/05/22- pt unsure of dose ursodiol 300 mg capsule 300 mg PO TID Patient Comments: TAKE ONE CAPSULE BY MOUTH THREE TIMES A DAY potassium chloride 40 mEq/15 mL liquid 40 meq PO TID Qty: 1350 12RF furosemide 20 mg tablet 40 mg PO .COMPLEX Rx Instructions: 40 mg orally daily, use bid for 3 days if weight gain > 3 pounds; albuterol sulfate [ProAir HFA] 90 mcg/actuation HFA aerosol inhaler 1 puff Inhalation Q6H PRN Qty: 8.5 4RF cholecalciferol (vitamin D3) [Vitamin D3] 2,000 UNIT capsule 1,000 unit PO DAILY levetiracetam 1,000 mg tablet 1,000 mg PO BID Qty: 180 1RF Lactobacillus acidophilus 1 billion cell capsule 1,000 mmu cells PO DAILY Qty: 60 0RF magnesium gluconate 27 mg magnesium (500 mg) tablet 27 mg PO BID Qty: 180 3RF
[2023-06-25] MEDS: LORazepam 2 MG/ML VIAL IVP (09:48)
[2023-06-25 09:53] LABS: BE (Venous) -2 mmol/L (-2-3); HCO3 (Venous) 24 mmol/L (23-28); O2 Sat (Venous) 42 %; TCO2 (Venous) 23 mmol/L (24-29); pCO2 (Venous) 53 mmHg (41-51); pH (Venous) 7.28 (7.31-7.41); pO2 (Venous) 29 mmHg
[2023-06-25] MEDS: Ketorolac 15 MG/ML VIAL IVP (09:54)
[2023-06-25] MEDS: Normal Saline 1,000 ML 1000 ML IV (09:55)
[2023-06-25 09:56] LABS: Lactate 5.8 mmol/L (0.6-1.4)
[2023-06-25 09:58] LABS: Abs Immature Grans 0.03 10^3/uL (0.0-0.06); Absolute Basophil Count 0.03 10^3/uL (0.0-0.2); Absolute Eosinophil Count 0.05 10^3/uL (0.0-0.7); Absolute Lymphocyte Count 0.57 10^3/uL (1.2-3.4); Absolute Monocyte Count 0.05 10^3/uL (0.1-0.8); Absolute Neutrophil Count 4.03 10^3/uL (1.2-6.7); Basophils % 0.6; Eosinophils % 1.1; HCT 39.3 % (36.0-46.0); HGB 12.8 g/dL (11.2-15.7); Immature Grans % 0.6; MCH 30.2 pg (27.0-33.0); MCHC 32.6 % (32.0-36.0); MCV 93 fL (80-95); MPV 11.9 fL (8.0-11.0); Monocytes % 1.1; Neutrophils % 84.6; Platelet Count 161 10^3/uL (130-400); RBC 4.24 10^6/uL (3.93-5.22); RDW 16.3 % (11.7-14.6); RDW-SD 55.3 fL; WBC 4.76 10^3/uL (4.4-10.8)
[2023-06-25] MEDS: ACETAMINOPHEN 1,000 MG/100 ML BTL 400 MG IVPB (09:59)
[2023-06-25 10:01] LABS: Bilirubin Negative (Negative); Blood Negative (Negative); Clarity Clear (Clear); Glucose Negative (Negative); Ketones Negative (Negative); Leukocyte Esterase Trace (Negative); Nitrite Negative (Negative); Urobilinogen 0.2 mg/dL (Up to 0.2)
[2023-06-25] MEDS: Albuterol/Ipratropium 3 ML UPD VIAL 9 ML UPD (10:11)
[2023-06-25 10:12] LABS: ESR 25 mm/hr (0-30)
[2023-06-25 10:14] LABS: Bacteria Few HPF (Negative); C & S Indicated? Yes; Casts Negative LPF (Negative); Crystals Negative HPF (Negative); Epithelial Cells Few HPF (Negative); Mucus Negative (Negative); RBC 0-2 HPF (0-2)
[2023-06-25 10:37] LABS: ALT 48 U/L (14-59); AST 90 U/L (15-37); Albumin 2.2 g/dL (3.4-5.0); Alkaline Phosphatase 225 U/L (46-116); Anion Gap 12.3 mmol/L (3-11); BUN 14 mg/dL (7-18); Bilirubin, Total 4.4 mg/dL (0.2-1.0); C-Reactive Protein 3.14 mg/dL (0.0-0.3); CO2 24.7 mmol/L (21.0-32.0); CREATININE 0.9 mg/dL (0.55-1.02); Calcium 8.7 mg/dL (8.5-10.1); Chloride 105 mmol/L (98-107); Creatine Kinase 58 U/L (26-192); Estimated GFR 62.26 (mL/min/1.73m2); Glucose 81 mg/dL (74-106); Lipase 23 U/L (16-77); Magnesium 1.7 mg/dL (1.8-2.4); NT-proBNP 110 pg/mL (<300); Potassium 3.5 mmol/L (3.5-5.1); Sodium 142 mmol/L (136-145); TSH (W/Ref FT4) 4.24 uIU/mL (0.36-3.74); Total Protein 7.4 g/dL (6.4-8.2)
[2023-06-25 10:44] LABS: Troponin I 218 ng/L (< or =60)
--- NOTE | 2023-06-25 11:00 | DI.US_ITS ---
Exam(s) US ABDOMEN LIMITED EXAM: US ABDOMEN LIMITED CLINICAL HISTORY: elevated bili:conj bili - hx cholangiitis TECHNIQUE: Ultrasound abdomen performed using standard protocol. COMPARISON: CT CT ABDOMEN WO/W from 01/17/2023 FINDINGS: Exam somewhat limited by patient's inability to breath hold. LIVER: Shrunken, cirrhotic appearance. No focal liver lesions are seen. GALLBLADDER: No evidence of cholelithiasis. No evidence of wall thickening. No pericholecystic fluid identified. SORIA'S SIGN: Negative. BILIARY SYSTEM: No intrahepatic or extrahepatic biliary ductal dilation. Right kidney: No evidence of renal calculi. No evidence of hydronephrosis. No renal mass or cyst iden tified. PANCREAS: Normal where visualized. ABDOMINAL AORTA AND IVC: Visualized portions normal caliber. ASCITES: Ascites noted around liver and gallbladder. IMPRESSION: Shrunken cirrhotic appearing liver. Ascites. No biliary dilatation. DATA REPOSITORY:
[2023-06-25 11:04] LABS: Bilirubin, Direct 3.8 mg/dL (0.0-0.2); FREE T4 1.39 ng/dL (0.76-1.46)
[2023-06-25 11:13] LABS: Procalcitonin 0.3 ng/mL
[2023-06-25] MEDS: CEFEPIME 1 GM in Normal Saline 50 ML IVPB (11:17)
[2023-06-25 11:19] LABS: INR 1.7 (0.9-1.1); PTT Activated 28.2 sec (23.6-32.8); Prothrombin Time 16.1 sec (9.1-11.1)
--- NOTE | 2023-06-25 11:45 | DI.RAD_ITS ---
Exam(s) XR PORTABLE CHEST AP EXAM: XR PORTABLE CHEST AP CLINICAL HISTORY: shortness of breath TECHNIQUE: 2D digital imaging was performed. COMPARISON: CR XR LINE PLACEMENT PICC/CVA from 01/26/2023 CR XR LINE PLACEMENT PICC/CVA from 01/26/2023 FINDINGS: Exam extremely limited due to lack of pulmonary inflation, under penetration LUNGS: Increased diffuse bilateral pulmonary markings could indicate pulmonary edema. No pleural abn ormality seen. HEART: Mostly obscured. AORTA: Normal diameter. BONES: Unremarkable for age. Soft tissues: Surgical clips left lateral chest. IMPRESSION: Limited exam. Findings suspicious for pulmonary edema. DATA REPOSITORY: RADIATION DOSE DELIVERED:
[2023-06-25] MEDS: AZITHROMYCIN 500 MG in Normal Saline 250 ML 250 MG IVPB (11:47)
[2023-06-25] MEDS: Normal Saline 500 ML IV (11:47)
[2023-06-25] MEDS: Normal Saline 1,000 ML 150 ML IV (12:30)
--- NOTE | 2023-06-25 12:45 | DI.CT_ITS ---
Exam(s) CT CHEST WO EXAM: CT CHEST WO CLINICAL HISTORY: ?PE TECHNIQUE: Imaging Protocol: Axial computed tomography images with coronal and sagittal reformatted images were created and reviewed CONTRAST MATERIAL: Intravenous: Omnipaque 350 Contrast volume:structured data ml. COMPARISON: CT CT CHEST PE CTA from 09/23/[address] ABDOMEN WO/W from 01/17/2023 CR XR PORTABLE CHEST AP POST LINE from 06/25/2023 FINDINGS: Exam is limited by patient motion. There is a moderate to large-sized pleural effusion, smaller th an on prior CT. Adjacent atelectatic lung. Heart mildly enlarged. Right internal jugular central venous catheter with tip in upper right atrium. Emphysematous changes in the upper lobes. Scarring again noted anterior left upper lobe. Stable T10 and T12 compression fractures. Evaluation of upper abdomen limited due to motion and streak artifact. Large quantity of ascites and cirrhotic liver again noted. Splenomegaly.. IMPRESSION: Moderate to large right pleural effusion and adjacent atelectasis. Cirrhotic liver and ascites. RADIATION DOSE DELIVERED: 403.51mGy.cm Total DLP DATA REPOSITORY: All CT scans at this facility are submitted to the National Radiology Data Registry (NRDR) Dose Index Registry (DIR) with the [employer] (ACR). RADIATION OPTIMIZATION: All CT scans at this facility use at least one of these dose optimization te chniques: automated exposure control; mA and/or kV adjustment per patient size (includes targeted exa ms where dose is matched to clinical indication); or iterative reconstruction.
[2023-06-25] MEDS: Furosemide 40 MG/4 ML VIAL IVP (13:17)
[2023-06-25 13:29] LABS: Lactate 3.3 mmol/L (0.6-1.4)
--- NOTE | 2023-06-25 13:33 | W.ED.PROC ---
Date of service: 06/25/23 Time of Service: 13:37 Procedures Central Line Placement Right IJ: Time Out Performed: Yes Patient Placed on Monitor/Pulse Ox: Yes MD Prep: mask, gown and gloves Central Line Prep: Chlorhexidine scrub Local Anesthetic: Lidocaine 1% Amount of anesthesia used (mL): 3 Ultrasound Used for Placement: Yes Central Line Lumen Inserted: triple Post Procedure: good blood return, all ports aspirated, flushed, capped and sutured in place with 2-0 silk Patient Tolerated Procedure: well and no complications Medical Decision Making Patient persistently hypotensive despite crystalloid bolus. Likely septic shock as well as hypoalbuminemic state in the setting of chronic cirrhosis. Quality:SDOH Health Related Social Needs: No Data to Display
--- NOTE | 2023-06-25 13:45 | RT.EKG_ITS ---
APPROVED REPORT Exam: Resting ECG Reason for Exam: elevated trop Patient Location: E HR:118 bpm ECG Measurements Heart Rate 118 AXIS OK 170 P 31 QRSd 74 QRS -11 QT 324 T 27 QTc 455 Conclusion Sinus tachycardia...rate> 99 Probable left atrial enlargement...P >50mS, <-0.10mV V1 Consider anterior infarct...Q >30mS in V2-V5 Sinus tachycardia, improved heart rate fron prior today. WD
[2023-06-25 13:47] LABS: Troponin I 2208 ng/L (< or =60)
[2023-06-25] MEDS: VANCOMYCIN/WATER (PEG) 1.25 GM/250 ML BAG IVPB (13:47)
--- NOTE | 2023-06-25 13:47 | DI.RAD_ITS ---
Exam(s) XR PORTABLE CHEST AP POST LINE EXAM: XR PORTABLE CHEST AP POST LINEz CLINICAL HISTORY: central line placement TECHNIQUE: 2D digital imaging was performed. COMPARISON: CR XR LINE PLACEMENT PICC/CVA from 01/26/2023 CR XR PORTABLE CHEST AP from 06/25/2023 FINDINGS: Exam is limited by poor pulmonary inflation. A central line has been inserted via the right jugular . The tip appears to project in the upper right atrium. LUNGS: On diffuse infiltrates versus pulmonary edema. Question tiny right pleural effusion. No pneu mothorax. HEART: Normal size. AORTA: Normal diameter. Calcified. BONES: Unremarkable for age. Soft tissues: Unremarkable. IMPRESSION: Central line tip projects in the upper right atrium Diffuse pulmonary edema again noted. DATA REPOSITORY: RADIATION DOSE DELIVERED:
[2023-06-25] MEDS: Norepinephrine in D5W 8 MG/250 ML BAG 9.375 MG IV (13:52)
[2023-06-25] MEDS: Normal Saline - Diluent 50 ML VIAL IJ (14:08)
[2023-06-25] MEDS: Omnipaque 350 MG/ML 100 ML BTL IJ (14:10)
[2023-06-25] MEDS: ALBUMIN HUMAN 25 GM/100 ML BTL IVPB (14:59)
--- NOTE | 2023-06-25 15:14 | NUR.NOTE ---
Per YANELI Willson, bed assignment is [address], Bed 17. Nursing Note:
[2023-06-25] MEDS: VASOPRESSIN 50 UNITS in Normal Saline 497.5 ML 6 UNITS IV (15:30)
--- NOTE | 2023-06-25 18:17 | NUR.NOTE ---
Preliminary blood culture results for both sets of bottles was called to ED. Results noted in worklist. Preliminary results faxed to [address], with their knowledge. Nursing Note:
--- NOTE | 2023-06-25 19:16 | NUR.NOTE ---
Positive blood cultures sent to [facility] where pt was sent
[2023-06-27 10:49] LABS: Levetiracetam 44.2 mcg/mL
== END 2023-06-25 16:22 | disposition short-term general hospital (02) ==
PROVIDERS: Emergency Provider Physician Assistant; PCP Family Medicine
DX: A41.9 Sepsis, unspecified organism (principal); J18.9 Pneumonia, unspecified organism; J91.8 Pleural effusion in other conditions classified elsewhere; I21.4 Non-ST elevation (NSTEMI) myocardial infarction; K74.69 Other cirrhosis of liver; I10 Essential (primary) hypertension; E11.9 Type 2 diabetes mellitus without complications; Z11.52 Encounter for screening for COVID-19; Z87.891 Personal history of nicotine dependence; Z79.899 Other long term (current) drug therapy
CPT/HCPCS: 36415; 36556; 51702; 71045; 71250; 80053; 80076; 82550; 82805; 82962; 83690; 84145; 85652; 87040; 87077; 93005; 94640; 96365; 96366; 96367; 96375; 99285; 76705; 80177; 81003; 81015; 83605; 83735; 83880; 84439; 84443; 84484; 85025; 85610; 85730; 86140; 87086; 87186; 93010; J0131; J0456; J0692; J1885; J1940; J1953; J2060; J2598; J3372; J3490; J7620; P9047

== ENCOUNTER 2023-07-19 13:57 | Outpatient (REF) | payer MEDICARE, SELFPAY ==
[2023-07-19 14:53] LABS: Abs Immature Grans 0.03 10^3/uL (0.0-0.06); Absolute Basophil Count 0.08 10^3/uL (0.0-0.2); Absolute Eosinophil Count 0.26 10^3/uL (0.0-0.7); Absolute Lymphocyte Count 0.88 10^3/uL (1.2-3.4); Absolute Monocyte Count 0.55 10^3/uL (0.1-0.8); Absolute Neutrophil Count 4.61 10^3/uL (1.2-6.7); Basophils % 1.2; Eosinophils % 4.1; HCT 30.6 % (36.0-46.0); HGB 10.4 g/dL (11.2-15.7); Immature Grans % 0.5; Lymphocytes % 13.7; MCH 30.2 pg (27.0-33.0); MCV 89 fL (80-95); Monocytes % 8.6; Neutrophils % 71.9; Platelet Count 104 10^3/uL (130-400); RBC 3.44 10^6/uL (3.93-5.22); RDW-SD 63.6 fL; WBC 6.41 10^3/uL (4.4-10.8)
[2023-07-19 15:19] LABS: Anion Gap 7.4 mmol/L (3-11); BUN 17 mg/dL (7-18); CO2 29.6 mmol/L (21.0-32.0); Calcium 8.8 mg/dL (8.5-10.1); Chloride 99 mmol/L (98-107); Estimated GFR 54.87 (mL/min/1.73m2); Glucose 149 mg/dL (74-106); Sodium 136 mmol/L (136-145)
== END 2023-07-19 13:58 | disposition home or self-care (01) ==
LOC: LBN 13:57
PROVIDERS: PCP Family Medicine; Visit Provider Family Medicine
DX: D69.6 Thrombocytopenia, unspecified (principal); G93.41 Metabolic encephalopathy
CPT/HCPCS: 80048; 85025

== ENCOUNTER → 2023-07-20 10:14 | Outpatient (CLI) | payer MEDICARE, SELFPAY ==
--- NOTE | 2023-07-20 09:51 | DI.RAD_ITS ---
Exam(s) XR CHEST 2V PA LATERAL EXAM: XR CHEST 2V PA LATERAL CLINICAL HISTORY: PLEURAL EFFUSION. TECHNIQUE: 2D digital imaging was performed. COMPARISON: CT CT CHEST WO from 06/25/2023 CR XR PORTABLE CHEST AP POST LINE from 06/25/2023 FINDINGS: 2 views: Heart size is normal. The mediastinum is not widened. Size of the right pleural effusion has not decreased and appears slightly larger than previous. There is no obvious pleural effusion on the opposite-left side. There is pulmonary venous hypertensi on pattern. Evidence of previous rotator cuff surgery in the right shoulder again noted. IMPRESSION: Persistent and slightly further enlargement of the right pleural effusion. DATA REPOSITORY: RADIATION DOSE DELIVERED:
== END ==
PROVIDERS: PCP Family Medicine; Visit Provider Family Medicine
DX: J90 Pleural effusion, not elsewhere classified (principal)
CPT/HCPCS: 71046

== ENCOUNTER 2023-07-31 09:07 | Day surgery (SDC) | payer MEDICARE, SELFPAY ==
--- NOTE | 2023-07-30 12:54 | PDOC.DSDIS_ITS ---
Date of service: 07/31/23 Time of Service: 10:30 Discharge Plan Disposition Patient Disposition: Home Condition: Good Discharge Details Reason For Visit: removal right pleural effusion Attending Provider: Fina Pelletier Primary Care Provider: Macarena Blankenship Home Meds and New Rx's Prescriptions: No Action milk thistle 150 mg capsule 150 mg PO DAILY Patient Comments: 01/05/22- pt unsure of dose Rx Instructions: give with meal/snack calcium carbonate [Calcium 600] 600 mg calcium (1,500 mg) tablet 600 mg PO DAILY PRN (Reason: Acid Reflux) Patient Comments: 01/05/22- pt unsure of dose ursodiol 300 mg capsule 300 mg PO TID Patient Comments: TAKE ONE CAPSULE BY MOUTH THREE TIMES A DAY potassium chloride 40 mEq/15 mL liquid 40 meq PO TID Qty: 1350 12RF furosemide 20 mg tablet 40 mg PO .COMPLEX Rx Instructions: 40 mg orally daily, use bid for 3 days if weight gain > 3 pounds; albuterol sulfate [ProAir HFA] 90 mcg/actuation HFA aerosol inhaler 1 puff Inhalation Q6H PRN Qty: 8.5 4RF cholecalciferol (vitamin D3) [Vitamin D3] 2,000 UNIT capsule 1,000 unit PO DAILY levetiracetam 1,000 mg tablet 1,000 mg PO BID Qty: 180 1RF torsemide 20 mg tablet 20 mg PO DAILY spironolactone 25 mg tablet 25 mg PO DAILY sulfamethoxazole-trimethoprim 800-160 mg tablet 1 tab PO DAILY Lactobacillus acidophilus 1 billion cell capsule 1,000 mmu cells PO DAILY Qty: 60 0RF magnesium gluconate 27 mg magnesium (500 mg) tablet 27 mg PO BID Qty: 180 3RF Discharge Instructions Additional Instructions: Discharge Instructions for Thoracentesis Thoracentesis is a procedure that removes extra fluid from the pleural space. This space is between the outside surface of the lungs (pleura) and the chest wall. The extra fluid is called pleural effusion.?Thoracentesis may be done to take a sample of the fluid. It can then be tested to help find the cause. Or the procedure may?be done to drain the extra fluid?if you are having?trouble breathing. Home care * You may have some pain after the procedure. Use ice.? You can take Tylenol 500mg by mouth every 6 hrs as needed for pain. * Take it easy for 24 hours after the procedure. No lifting over 20#?s for 24 hrs. * You will have a small bandage over the puncture site. You may remove the bandage in?24 hourr. * Checkthe puncture site for the signs of infection listed below. Follow-up When to call your healthcare provider Call your provider right away if you have any of these: * Fever of 100.4?F (38?C) or higher, or as directed * Pain that doesn't get better after taking pain medicine * Signs of infection at the puncture site. These include increased pain, redness,?warmth, swelling, or fluid leaking that is green or yellow or smells bad. * Fluid draining from the puncture site * Bleeding from the puncture site When to call?911 Call 911?or get care at the nearest emergency department if any of these occur: * Chest pain that is unusual or suddenly gets worse * Shortness of breath * Coughing up blood Stand Alone Forms: Lisa Resendiz ([facility]) Activity:: See above Remove Dressings/Wound Care:: 24 hours Shower/Bathe:: 24 hours Diet:: See above Discharge Orders Discharge Orders: Discharge Order (Routine); Ordered 07/31/23 Ordered By: Fina Pelletier Discharge Data Discharge Date/Time-TO BE ENTERED AT DEPARTURE: 07/31/23 12:00 Discharge Comment: [facility] Diagnosis Discharge Diagnosis (1) Recurrent right pleural effusion: Status: Acute (2) Elevated INR: Status: Acute (3) Osteoporosis: Status: Chronic (4) Protein-calorie malnutrition, moderate: Status: Acute (5) Portal hypertension with esophageal varices: Status: Chronic (6) Elevated bilirubin: Status: Acute (7) Gallstones: Status: Acute (8) Elevated LFTs: Status: Acute (9) Cirrhosis: Status: Acute (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
--- NOTE | 2023-07-31 | DI.RAD_ITS ---
Exam(s) XR PORTABLE CHEST AP EXAM: XR PORTABLE CHEST AP CLINICAL HISTORY: s/p thoro right for effussion. TECHNIQUE: 2D digital imaging was performed. COMPARISON: CT CT CHEST WO from 06/25/2023 CR XR CHEST 2V PA LATERAL from 07/20/2023 FINDINGS: Single AP portable view. Heart size is upper normal. The mediastinum is not widened. There has been improvement in the appearance of the right lung. The size of the right pleural effusi on has significantly diminished. No obvious pleural effusion at this time on either side evident on this frontal view. There is no pneumothorax. No confluent infiltrates. No pulmonary edema. Again noted is evidence of right shoulder rotator cuff surgery and left axillary zak dissection cli ps. IMPRESSION: Significant radiographic improvement compared to 07/20/2023. DATA REPOSITORY: RADIATION DOSE DELIVERED:
[2023-07-31 09:32] VITALS: BP 100/55; PULSE 65; RESP 16; TEMP 36.5; O2SAT 100
[2023-07-31] MEDS: Phytonadione 5 MG TABLET 10 MG PO (09:42)
--- NOTE | 2023-07-31 10:09 | HPE_ITS ---
Date of service: 07/31/23 Time of Service: 10:09 Assessment and Plan Assessment and plan (1) Recurrent right pleural effusion: Status: Acute Assessment and plan: Risks of procedure include but not limited to: Bleeding, infection, pneumonia, damage to the lungs bronchus or blood-filled cells, collapsed lung requiring some type of reinflation to, local anesthetics, need for repeat procedure, and continued fluid leakage. Patient does give consent (2) Elevated INR: Status: Acute Assessment and plan: She did receive vitamin K prior to the procedure. 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 (9) Primary biliary cholangitis: Status: Chronic (10) Fe deficiency anemia: Status: Acute (11) Emphysema lung: Status: Acute Qualifiers: Emphysema type: unspecified Qualified Code(s): J43.9 - Emphysema, unspecified (12) Lymphedema: Status: Acute (13) Essential tremor: Status: Acute (14) Compression fracture of lumbar vertebra: Status: Acute (15) Seizure disorder: Status: Chronic (16) Diabetes mellitus: Qualifiers: Diabetes mellitus complication status: without complication Diabetes mellitus terminal worker insulin use: without terminal worker use Diabetes mellitus type: type 2 Qualified Code(s): E11.9 - Type 2 diabetes mellitus without complications (17) Hypercholesterolemia: (18) History of left breast cancer: (19) Left inguinal hernia: (20) Grade II internal hemorrhoids: (21) Diverticulosis: History of Present Illness Narrative: Elina is here today regarding a right pleural effusion that has been ongoing. She was recently in [facility] for 3 weeks with septic shock and respiratory failure/pneumonia/pleural effusion and SBP and grew out strep agalactiae. she also had a stress-induced NSTEMI. She had a thoracentesis while she was in [facility] as well. I do not have the culture report. She was started on diuretics for this. Her cirrhosis continues to deteriorate secondary to primary biliary cholangitis. She was also having some issues with swallowing but was discharged on mechanical soft diet. She states the swallowing issues have resolved and she is on a regular diet at this point. She was found to have a recurrent right pleural effusion is here today for thoracentesis. Informed consent is obtained explaining risks and benefits of procedure include not limited to: Bleeding, infection, and pneumothorax. X-ray is reviewed. 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 She has seen hematology and thought it was due to a mixed etiology Compression fracture of lumbar vertebra (Acute) Portal hypertension with esophageal varices (Chronic) Grade 1. 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 Pt unable to tolerate propranolol. Primary biliary cholangitis (Chronic) followed by GI [facility], associated with chronically elevated transaminases Primary osteoarthritis of left knee (Acute) Injection: 03/23/23; 08/14/22; 05/15/2022; 01/19/2022 ([facility]) Medical History Pulmonary edema (~06/25/23) Gram-positive cocci bacteremia (~01/2023) s/p 6 wks IV abx 2022 History of left breast cancer Invasive intraductal, on arimedex, followed by Oncology Squamous cell carcinoma of skin of left lower extremity 3.5cm LLE Cystocele and rectocele with incomplete uterovaginal prolapse Fitted with #3 Gelhorn pessary Sept 2021; pending eval at [facility] for poss surgery. Currently using a continence dish with knob. Persistent cystocele is present. Consultation with [facility] has been undertaken and she has an in person visit with them at the end of June,. They recommended colpocleisis. 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 Kaden Escobedo 06-23-2013 Surgical History (Updated 07/31/23 @ 14:56 by Tori Ybarra) History of thoracentesis (~07/2023) History of colpocleisis [facility] colpocleisis posterior perineorrhaphy cystoscopy at [facility] 09/05/2022 Status post Mohs surgery for squamous cell carcinoma of skin H/O inguinal hernia repair ganglion, left ankle Rotator Cuff Repair (06/23/13) Right with distal clavical excision Oseotomy (10/06/98) TONNY BILATERAL FEET Nuclear senile cataract EGD - MAC (12/31/17) Colonoscopy - MAC (12/31/17) Colonoscopy - IV Sedation 10 + years ago- normal Biopsy of breast (04/18/17) benign breast tissue with cyst wall Family History Mother , 88 Diabetes Essential hypertension Heart disease Hyperlipidemia Father , 63 Neoplasm BLADDER Sister Hyperlipidemia Breast cancer Brother Diabetes Essential hypertension Hyperlipidemia Neoplasm PROSTATE Prostate cancer Maternal Grandfather No problems noted. Paternal Grandfather No problems noted. Maternal Grandmother Diabetes Paternal Grandmother No problems noted. 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 Pets and animals: Yes Pets and animals: dog(s) Sexually active: No Do you think of yourself as: straight/heterosexual Current gender identity: female What is your relationship status?: How often do you talk on the phone with friends or family?: three or more times per week How often do you get together with friends or relatives?: once per week How often do you attend mosque or restorationism services?: decline to answer Do you belong to any clubs or organized social groups?: no Panel score (0-1 are the most socially isolated patients): 1 What type of physical activity do you participate in: none Frequency: does not exercise Nhung/Synagogue: No preference Special nhung needs: No Seatbelt use: always Drive intox or ride w/intox rental car ferry driver: No Do you feel safe at home: Yes Do you feel safe in your relationship?: Yes Additional Social history: 07/31/23 has been in [facility] for past 3 weeks Female Reproductive History Menstrual Menopause type: natural History History 2 Para 2 Hx # Term Pregnancies Multiple births Hx # Pregnancies Ectopic pregnancies AB induced Hx Number of Living Children AB spontaneous Past Pregnancies Del. Date GA/Weeks # Preg Succ Route Wgt Sex Labor Lgth Anesth esia Location [facility] 12/13/1953 40 No Yes vaginal Female 10/12/1957 40 No Yes vaginal Male Meds Allergies and Home Medications Allergies Allergy/AdvReac Type Severity Reaction Status Date / Time hydralazine Allergy Intermediate Other (See Verified 07/31/23 10:24 Comment) spironolactone AdvReac Intermediate Other (See Verified 07/31/23 10:24 Comment) red yeast rice Allergy rash Uncoded 07/31/23 10:24 Home Medications Medication Instructions Recorded Confirmed Type cholecalciferol (vitamin D3) 50 1,000 unit PO DAILY 09/01/16 07/31/23 History mcg (2,000 unit) capsule (Vitamin D3) calcium carbonate 600 mg calcium 600 mg PO DAILY PRN Acid Reflux 01/05/22 07/31/23 History (1,500 mg) tablet (Calcium) milk thistle 150 mg capsule 150 mg PO DAILY 01/05/22 07/31/23 History potassium chloride 40 mEq/15 mL 40 meq (15 mL) PO TID #1,350 mL 10/24/22 07/31/23 Rx oral liquid ursodiol 300 mg capsule 300 mg PO TID 12/06/22 07/31/23 History Lactobacillus acidophilus 1 1,000 mmu cells PO DAILY #60 caps 01/27/23 07/31/23 Rx billion cell capsule magnesium gluconate 27 mg 27 mg PO BID #180 tabs 01/27/23 07/31/23 Rx magnesium (500 mg) tablet albuterol sulfate 90 mcg/actuation 1 puff inhalation Q6H PRN #8.5 04/10/23 07/31/23 Rx aerosol inhaler (ProAir HFA) grams furosemide 20 mg tablet 40 mg PO .COMPLEX 04/10/23 07/31/23 History levetiracetam 1,000 mg tablet 1,000 mg PO BID #180 tabs 06/19/23 07/31/23 Rx spironolactone 25 mg tablet 25 mg PO DAILY 07/17/23 07/31/23 History sulfamethoxazole 800 1 tab PO DAILY 07/17/23 07/31/23 History mg-trimethoprim 160 mg tablet torsemide 20 mg tablet 20 mg PO DAILY 07/17/23 07/31/23 History Exam Narrative Exam Narrative: L: decrease BS R base. no r/r/w A: no pain. minimal ascties Results Last Vital Signs Temp 36.5 C 07/31/23 09:32 Pulse 65 07/31/23 09:32 Resp 16 07/31/23 09:32 BP 100/55 L 07/31/23 09:32 Pulse Ox 100 07/31/23 09:32 Time Spent Time spent with Patient: <40 minutes Time was spent: preparing to see the patient(eg.review tests), obtaining and/or reviewing separately otained hiistory, ordering medications,tests, procedures, referring, communicating with other health outdoor emergency care technician, indepentently interpreting results, counseling the patient and care coordination
[2023-07-31] MEDS: Sodium Bicarbonate 50 MEQ/50 ML VIAL (10:47)
[2023-07-31] MEDS: Lidocaine 1% Multi-Dose W/EPI 1/100,000 50 ML VIAL (10:47)
[2023-07-31 11:02] VITALS: BP 92/55; PULSE 55; RESP 18; TEMP 36; O2SAT 99
--- NOTE | 2023-07-31 11:10 | ROE_ITS ---
Date of service: 07/31/23 Time of Service: 11:10 Operative Note Operative Note DATE OF PROCEDURE: 07/31/23 PRE-OP DIAGNOSIS: right pleural eff POST-OP DIAGNOSIS: same PROCEDURE: right thorocentisis SURGEON: Fina Pelletier ANESTHESIA TYPE: Local By Surgeon Refer to Anesthesia Record ESTIMATED BLOOD LOSS: 1 PATHOLOGY: none sent COMPLICATIONS: None Patient was transported to: same day Patient's condition: stable Procedure Description: REPORT OF OPERATION Operative Note Operative Note Pt is here today for thoracentesis for symptoms of shortness of breath.? Chest x-ray was reviewed prior to beginning the procedure.? Informed consent was obtained explaining risks and benefits of the procedure, including but not limited to bleeding, infection, pneumothorax, recurrence, complications of anesthesia, and other unforetold complications. Timeout is performed prior to beginning the procedure. ? PROCEDURE:? The patient is brought to the procedure room and placed in the seated position.? Ultrasound is used to localize the pocket on the right chest.? The area is marked and then prepped and draped in the usual sterile fashion using a ChloraPrep scrub solution.? 10 cc's of 1% Lidocaine is used to anesthetize the T10 interspace. ? The small hardeep is made with a #11 blade.? The needle and catheter is then inserted over the top of the rib, aspirating as it is inserted.? The needle is then removed.? The catheter is then hooked up to the Vacutainer system and 75 cc's of straw-colored fluid is evacuated.? The catheter is removed; pressure is held.? Sterile compression dressing is applied. ? Ultrasound shows good lung slide up to the apex of the lung, and no air. Pt is given instructions in wound care, activity, medications, and warning s igns: SOB, increasing in pain, chest pain, redness or temperature- if these occur, come to ED.
== END 2023-07-31 12:00 | disposition home or self-care (01) ==
LOC: SUR 09:07
PROVIDERS: PCP Family Medicine; Visit Provider Surgery
PROC: (CPT 32554; principal; 2023-07-31 10:15)
DX: J90 Pleural effusion, not elsewhere classified (principal); R79.1 Abnormal coagulation profile
CPT/HCPCS: 49083; 71045; J2004

== ENCOUNTER 2023-08-21 16:06 | Outpatient (REF) | payer MEDICARE, SELFPAY ==
[2023-08-21 18:43] LABS: Abs Immature Grans 0.01 10^3/uL (0.0-0.06); Absolute Basophil Count 0.09 10^3/uL (0.0-0.2); Absolute Eosinophil Count 0.29 10^3/uL (0.0-0.7); Absolute Lymphocyte Count 1.16 10^3/uL (1.2-3.4); Absolute Monocyte Count 0.72 10^3/uL (0.1-0.8); Absolute Neutrophil Count 4.55 10^3/uL (1.2-6.7); Basophils % 1.3; Eosinophils % 4.3; HCT 30.5 % (36.0-46.0); HGB 10.4 g/dL (11.2-15.7); Immature Grans % 0.1; MCH 30.8 pg (27.0-33.0); MCHC 34.1 % (32.0-36.0); MCV 90 fL (80-95); MPV 12.3 fL (8.0-11.0); Monocytes % 10.6; Neutrophils % 66.7; Platelet Count 168 10^3/uL (130-400); RBC 3.38 10^6/uL (3.93-5.22); RDW 18.8 % (11.7-14.6); RDW-SD 61.5 fL; WBC 6.82 10^3/uL (4.4-10.8)
[2023-08-21 18:57] LABS: ALT 52 U/L (14-59); AST 85 U/L (15-37); Albumin 1.8 g/dL (3.4-5.0); Alkaline Phosphatase 158 U/L (46-116); Anion Gap 9.7 mmol/L (3-11); BUN 17 mg/dL (7-18); Bilirubin, Total 3.1 mg/dL (0.2-1.0); CO2 25.3 mmol/L (21.0-32.0); CREATININE 0.8 mg/dL (0.55-1.02); Calcium 8.1 mg/dL (8.5-10.1); Chloride 103 mmol/L (98-107); Estimated GFR 71.71 (mL/min/1.73m2); Glucose 109 mg/dL (74-106); Potassium 3.4 mmol/L (3.5-5.1); Sodium 138 mmol/L (136-145); Total Protein 6.3 g/dL (6.4-8.2)
[2023-08-23 17:09] LABS: Lab Add On Test DONE
[2023-08-23 17:21] LABS: Magnesium 1.7 mg/dL (1.8-2.4)
== END 2023-08-21 16:07 | disposition home or self-care (01) ==
LOC: LBN 16:06
PROVIDERS: PCP Family Medicine; Visit Provider Family Medicine
DX: K74.3 Primary biliary cirrhosis (principal); E46 Unspecified protein-calorie malnutrition; D50.9 Iron deficiency anemia, unspecified; I10 Essential (primary) hypertension; E11.9 Type 2 diabetes mellitus without complications
CPT/HCPCS: 80053; 83735; 85025

== ENCOUNTER → 2023-09-10 08:05 | Outpatient (BNVA) | payer MEDICARE, SELFPAY | PROVIDERS: PCP Family Medicine; Referring Provider Family Medicine; Visit Provider Student in an Organized Health Care Education/Training Program | DX: M17.11 Unilateral primary osteoarthritis, right knee (principal); M17.12 Unilateral primary osteoarthritis, left knee | CPT/HCPCS: 20610; J1040 ==

== ENCOUNTER → 2023-09-12 10:46 | Outpatient (BNVA) | payer MEDICARE, SELFPAY | PROVIDERS: PCP Family Medicine; Referring Provider Family Medicine; Visit Provider Psychiatry & Neurology Neurology | DX: G40.901 Epilepsy, unspecified, not intractable, with status epilepticus (principal); R41.3 Other amnesia; G25.0 Essential tremor | CPT/HCPCS: 99213 ==

== ENCOUNTER 2023-10-22 21:14 | Outpatient (REF) | payer MEDICARE, SELFPAY | END 2023-10-22 21:15 | disposition home or self-care (01) | LOC: LBN 21:14 | PROVIDERS: PCP Family Medicine; Visit Provider Nurse Practitioner Family | DX: N89.8 Other specified noninflammatory disorders of vagina (principal) | CPT/HCPCS: 87480; 87510; 87660 ==

== ENCOUNTER 2023-10-24 11:43 | Inpatient (IN) | payer MEDICARE, SELFPAY ==
--- NOTE | 2023-10-24 11:45 | RT.EKG_ITS ---
APPROVED REPORT Exam: Resting ECG Reason for Exam: [facility] Patient Location: E HR:91 bpm ECG Measurements Heart Rate 91 AXIS ME 171 P 51 QRSd 84 QRS -24 QT 351 T 31 QTc 435 Conclusion Sinus rhythm...normal P axis, V-rate 60- 99 Multiform ventricular premature complexes...short R-R, variable morphology Probable left atrial enlargement...P >50mS, <-0.10mV V1 sinus rhtyhm, lefts axis, PVC, poor baseline lateral leads
--- NOTE | 2023-10-24 11:45 | DI.CT_ITS ---
Exam(s) CT HEAD WO EXAM: CT HEAD WO CLINICAL HISTORY: ams. TECHNIQUE: Imaging Protocol: Axial computed tomography images with coronal and sagittal reformatted images were created and reviewed COMPARISON: CT CT HEAD WO from 05/18/2021 FINDINGS: Ventricles and Extra axial spaces: Normal in size and morphology for the patient's age. Hemorrhage: None. Cerebral parenchyma: There are areas of decreased attenuation in the white matter consistent with chr onic microvascular ischemic disease. Midline shift: None. Brainstem/Cerebellum: Normal. Calvarium: Normal. Visualized Paranasal sinuses/Mastoids: Clear. Soft Tissues: Unremarkable. IMPRESSION: No acute intracranial process. RADIATION DOSE DELIVERED: 673.47mGy.cm Total DLP DATA REPOSITORY: All CT scans at this facility are submitted to the National Radiology Data Registry (NRDR) Dose Index Registry (DIR) with the [employer] (ACR). RADIATION OPTIMIZATION: All CT scans at this facility use at least one of these dose optimization te chniques: automated exposure control; mA and/or kV adjustment per patient size (includes targeted exa ms where dose is matched to clinical indication); or iterative reconstruction.
[2023-10-24 11:49] VITALS: BP 124/61; PULSE 93; RESP 18; TEMP 36.4; O2SAT 94
[2023-10-24 11:53] VITALS: RESP 16; O2SAT 95
--- NOTE | 2023-10-24 11:53 | DI.RAD_ITS ---
Exam(s) XR CHEST 1V IN DI DEPT EXAM: XR CHEST 1V IN DI DEPT CLINICAL HISTORY: ams TECHNIQUE: 2D digital imaging was performed of the chest. One image was obtained. An AP view was ob tained. COMPARISON: CR XR PORTABLE CHEST AP from 07/31/2023 FINDINGS: Poor inspiration. MEDIASTINUM: Normal. HEART: Normal. PULMONARY VASCULATURE: There is pulmonary venous congestion. LUNGS: No focal consolidating infiltrates are appreciated. PLEURAL SPACE: The patient's known right pleural effusion is best appreciated on the CT scan of the c hest. No significant left pleural effusion. No pneumothorax. BONE:Within normal limits for the patient's age. OTHER FINDINGS:Normal. IMPRESSION: Pulmonary venous congestion. No focal consolidating infiltrate is seen. Please refer to the CT scan of the abdomen and pelvis for complete details. DATA REPOSITORY: RADIATION DOSE DELIVERED:
--- NOTE | 2023-10-24 12:15 | DI.CT_ITS ---
Exam(s) CT ABDOMEN PELVIS W EXAM: CT ABDOMEN PELVIS W CLINICAL HISTORY: abd pain, hernia, ams TECHNIQUE: Imaging Protocol: Axial computed tomography images with coronal and sagittal reformatted images were created and reviewed. CONTRAST MATERIAL: Intravenous: Omnipaque 350 Contrast volume:100 mL Oral: No COMPARISON: CT CT ABDOMEN PELVIS W from 01/05/[address] CHEST PE CTA from 09/23/[address] ABDOMEN WO/W from 01/17/[address] CHEST WO from 06/25/2023 FINDINGS: ABDOMEN: Lung Bases: There is again seen a moderate size right pleural effusion. There is a subjacent infiltr ate seen in the right lower lobe which may represent atelectasis or pneumonia. Liver: There are findings of hepatic cirrhosis with abdominal and gastroesophageal varices. There ar e hepatic cysts present. The largest measures 1.6 cm and is located in the right lobe of the liver. Portal, Superior Mesenteric, and Splenic Veins: There is partially occlusive thrombus seen in the sup erior mesenteric vein extending into the proximal portal vein. This is new compared to the prior exa mination from 01/17/2023. Gallbladder and Biliary Tract: The gallbladder is distended. No stones are visualized. There is no biliary ductal dilatation. Pancreas: Normal density, no abnormal calcifications or inflammatory process. Spleen: The spleen is enlarged measuring 14 cm. No Adrenals: No masses seen. Kidneys: Normal size, contour and axis. No radiodense stones or obstructive uropathy. There are tiny hypodensities in the left kidney which are too small for further characterization but likely reflect small cysts. No suspicious renal mass is seen. Abdominal Aorta: Abdominal portion non-dilated. Atherosclerotic calcification is present. Bowel: There is diverticulosis of the colon. There is diffuse thickening of the wall of the small bow el and colon which may be due to decreased liver function. Enterocolitis cannot be excluded. The appe arance of the mid sigmoid colon is unchanged. There do appear to be several diverticula in the region . No evidence of appendicitis. There is an anterior abdominal wall defect containing a loop of small bowel. There is mild dilatation of small bowel loops proximal to the hernia (series 6, image [id number]) . Early small bowel obstruction cannot be excluded. The size of the hernia sac has increased compared to the prior examination. There is now septated appearing fluid within the hernia sac. The collectio n measures 16 cm transverse by 3.8 cm AP. (Series 6, image [id number]). Peritoneal Cavity: Moderately large amount of abdominal ascites and small amount of pelvic ascites. N o free air. Lymph Nodes: Within normal limits. Bones: Within normal limits for the patient's age. There are old T10 and T12 compression fracture de formities. Soft Tissues: Unremarkable. PELVIS: Bladder: Symmetric distention, no gross wall thickening. Reproductive Organs: Unremarkable as visualized. Lymph Nodes: Within normal limits. Bones: Within normal limits for the patient's age. IMPRESSION: 1. Findings of hepatic cirrhosis and portal venous hypertension with splenomegaly, ascites and gastro esophageal/abdominal varices. 2. Anterior abdominal wall hernia which has increased in size compared to the prior examination from 01/05/2022. There is mild dilatation of the proximal small bowel loops suggesting early obstruction. 3. Multiloculated fluid collection within the hernia sac. This has shown significant increase in size compared to the prior examination. A neoplasm cannot be entirely excluded. 4. Moderate right pleural effusion and subjacent infiltrate. 5. Diffuse wall thickening and small and large bowel loops likely reflecting the patient's poor hepat ic function but enterocolitis should also be considered. 6. New partially occlusive thrombus in the superior mesenteric vein and extending into the main amy l vein. RADIATION DOSE DELIVERED: 575.96mGy.cm Total DLP DATA REPOSITORY: All CT scans at this facility are submitted to the National Radiology Data Registry (NRDR) Dose Index Registry (DIR) with the [employer] (ACR). RADIATION OPTIMIZATION: All CT scans at this facility use at least one of these dose optimization te chniques: automated exposure control; mA and/or kV adjustment per patient size (includes targeted exa ms where dose is matched to clinical indication); or iterative reconstruction.
[2023-10-24 12:19] LABS: Abs Immature Grans 0.06 10^3/uL (0.0-0.06); Absolute Basophil Count 0.07 10^3/uL (0.0-0.2); Absolute Eosinophil Count 0.23 10^3/uL (0.0-0.7); Absolute Lymphocyte Count 1.52 10^3/uL (1.2-3.4); Absolute Monocyte Count 0.98 10^3/uL (0.1-0.8); Absolute Neutrophil Count 6.67 10^3/uL (1.2-6.7); Basophils % 0.7 %; Eosinophils % 2.4 %; HGB 12.9 g/dL (11.2-15.7); Immature Grans % 0.6 %; Lactate 1.4 mmol/L (0.6-1.4); Lymphocytes % 15.9 %; MCH 31.6 pg (27.0-33.0); MCHC 33.9 % (32.0-36.0); MCV 93 fL (80-95); MPV 11.6 fL (8.0-11.0); Monocytes % 10.3 %; Neutrophils % 70.1 %; Platelet Count 155 10^3/uL (130-400); RBC 4.08 10^6/uL (3.93-5.22); RDW 18.1 % (11.7-14.6); RDW-SD 61.7 fL; WBC 9.53 10^3/uL (4.4-10.8)
[2023-10-24 12:25] LABS: Ammonia 104 umol/L (11-32)
[2023-10-24 12:44] LABS: INR 1.4 (0.9-1.1); Prothrombin Time 13.3 sec (9.1-11.1)
[2023-10-24 12:55] LABS: ALT 84 U/L (14-59); AST 83 U/L (15-37); Albumin 2.1 g/dL (3.4-5.0); Alkaline Phosphatase 195 U/L (46-116); Anion Gap 7.2 mmol/L (3-11); BUN 28 mg/dL (7-18); CO2 28.8 mmol/L (21.0-32.0); CREATININE 1.1 mg/dL (0.55-1.02); Calcium 8.5 mg/dL (8.5-10.1); Chloride 103 mmol/L (98-107); Estimated GFR 48.94 (mL/min/1.73m2); Glucose 90 mg/dL (74-106); Potassium 3.9 mmol/L (3.5-5.1); Sodium 139 mmol/L (136-145); TSH (W/Ref FT4) 2.41 uIU/mL (0.36-3.74)
[2023-10-24] MEDS: Normal Saline - Diluent 50 ML VIAL IJ (13:22)
[2023-10-24] MEDS: Omnipaque 350 MG/ML 100 ML BTL IJ (13:23)
[2023-10-24] MEDS: Normal Saline Flush 10 ML SYR IVP (13:25)
[2023-10-24] MEDS: Normal Saline 500 ML IV ×2 (13:54→14:45)
--- NOTE | 2023-10-24 13:59 | W.ED.GENAD ---
Discharge Plan Disposition Patient Disposition: Admit to [facility] Condition: Fair Discharge Details Clinical Impression: Acute hepatic encephalopathy, Hernia of small intestine, Partial small bowel obstruction, Thrombosis of mesenteric vein, Pleural effusion on right Admit Date/Time: 10/24/23 17:07 Admit Provider: Drew Apple Attending Provider: Drew Apple Primary Care Provider: Macarena Blankenship ED Provider: Belinda Concepcion Discharge Data Discharge Date/Time-TO BE ENTERED AT DEPARTURE: 10/24/23 18:03 HPI <JESSICA Mabry - Last Filed: 10/26/23 08:24> General Date/Time Provider Initiated Documentation: 10/24/23 11:45. HPI Narrative: This 88-year-old female with past medical history of cirrhosis, elevated INR, emphysema, seizures presents with report of alteration in mental status intermittently over the course of the past several days, started on Sunday per son. He has been staying with his mother for the past several days secondary to her confusion. She was having difficulty ambulating today and persistently confused which is why they present. Does not drink alcohol. Denies similar presentation in the past. Denies any fevers. Did have 2 episodes of vomiting several days ago which is resolved. Denies any current complaints. Massive history was obtained from patient's son. Denies any blood in vomitus or stool. Denies any new medications or falls or known injuries. Related Data Home Medications Medication Instructions Recorded Confirmed cholecalciferol (vitamin D3) 50 1,000 unit PO DAILY 09/01/16 10/22/23 mcg (2,000 unit) capsule (Vitamin D3) calcium carbonate (Calcium 600) 600 mg PO DAILY PRN Acid Reflux 01/05/22 10/22/23 milk thistle 150 mg capsule 150 mg PO DAILY 01/05/22 10/22/23 ursodiol 300 mg capsule 300 mg PO TID 12/06/22 10/25/23 Lactobacillus acidophilus 1 1,000 mmu cells PO DAILY #60 caps 01/27/23 10/22/23 billion cell capsule magnesium gluconate 27 mg 27 mg PO BID #180 tabs 01/27/23 10/22/23 magnesium (500 mg) tablet albuterol sulfate 90 mcg/actuation 1 puff inhalation Q6H PRN #8.5 04/10/23 10/25/23 aerosol inhaler (ProAir HFA) grams levetiracetam 750 mg tablet 750 mg PO BID #180 tabs 09/12/23 10/25/23 potassium chloride 10 mEq 10 meq PO TID #270 tabs 09/14/23 10/25/23 tablet,extended release spironolactone 25 mg tablet 25 mg PO DAILY #90 tabs 09/14/23 10/25/23 sulfamethoxazole 800 1 tab PO DAILY #90 tabs 09/14/23 10/25/23 mg-trimethoprim 160 mg tablet torsemide 20 mg tablet 20 mg PO DAILY #90 tabs 09/14/23 10/25/23 Previous Rx's Medication Instructions Recorded Lactobacillus acidophilus 1 1,000 mmu cells PO DAILY #60 caps 01/27/23 billion cell capsule magnesium gluconate 27 mg 27 mg PO BID #180 tabs 01/27/23 magnesium (500 mg) tablet albuterol sulfate 90 mcg/actuation 1 puff inhalation Q6H PRN #8.5 04/10/23 aerosol inhaler (ProAir HFA) grams levetiracetam 750 mg tablet 750 mg PO BID #180 tabs 09/12/23 potassium chloride 10 mEq 10 meq PO TID #270 tabs 09/14/23 tablet,extended release spironolactone 25 mg tablet 25 mg PO DAILY #90 tabs 09/14/23 sulfamethoxazole 800 1 tab PO DAILY #90 tabs 09/14/23 mg-trimethoprim 160 mg tablet torsemide 20 mg tablet 20 mg PO DAILY #90 tabs 09/14/23 Allergies Allergy/AdvReac Type Severity Reaction Status Date / Time hydralazine Allergy Intermediate Other (See Verified 10/22/23 11:28 Comment) red yeast rice Allergy rash Uncoded 10/22/23 11:28 General Stated Complaint: AMS/LOC MOISES: 2 Exam <JESSICA Mabry - Last Filed: 10/26/23 08:24> Narrative Exam Narrative: Alert and oriented times two 88-year-old female pupils equal round reactive to light and accommodation, cataract over left eye, mild proptosis bilaterally, lungs clear to auscultation, cardiac rate rhythm regular, soft hernia noted periumbilically, nontender, slight jaundice alert and oriented x 2, I am able to follow basic commands no visible signs of trauma Course <JESSICA Mabry - Last Filed: 10/26/23 08:24> Vital Signs Vital signs: Vital Signs Temperature 36.4 C L 10/24/23 11:49 Pulse 93 H 10/24/23 11:49 Respiratory Rate 18 10/24/23 11:49 Blood Pressure 124/61 10/24/23 11:49 Pulse Oximetry 94 10/24/23 11:49 Temperature 36.4 C L 10/24/23 11:49 Temperature Source Oral 10/24/23 11:49 Pulse 93 H 10/24/23 11:49 Respiratory Rate 16 10/24/23 11:53 Respiratory Effort Normal, Non-Labored 10/24/23 11:53 Respiratory Depth Normal 10/24/23 11:53 Respiratory Pattern Normal 10/24/23 11:53 Blood Pressure 124/61 10/24/23 11:49 Blood Pressure Position Supine 10/24/23 11:49 Pulse Oximetry 95 10/24/23 11:53 Oxygen Delivery Method Room Air 10/24/23 11:53 Lab/Test Results Lab/Test Results: 10/24/23 12:43 Blood Blood Culture - Pending 10/24/23 12:22 Blood Blood Culture - Pending Laboratory Tests Range/Units 10/24/23 10/24/23 10/24/23 12:10 12:12 12:22 WBC (4.4-10.8) 10^3/uL 9.53 RBC (3.93-5.22) 10^6/uL 4.08 Hgb (11.2-15.7) g/dL 12.9 Hct (36.0-46.0) % 38.0 MCV (80-95) fL 93 MCH (27.0-33.0) pg 31.6 MCHC (32.0-36.0) % 33.9 RDW (11.7-14.6) % 18.1 H Plt Count (130-400) 10^3/uL 155 MPV (8.0-11.0) fL 11.6 H Immature Gran % % 0.6 Neutrophils % % 70.1 Lymphocytes % % 15.9 Monocytes % % 10.3 Eosinophils % % 2.4 Basophils % % 0.7 Nucleated RBC % (0.0-0.3) % 0.0 Absolute Neutrophils (1.2-6.7) 10^3/uL 6.67 Absolute Lymphocytes (1.2-3.4) 10^3/uL 1.52 Absolute Monocytes (0.1-0.8) 10^3/uL 0.98 H Absolute Eosinophils (0.0-0.7) 10^3/uL 0.23 Absolute Basophils (0.0-0.2) 10^3/uL 0.07 PT (9.1-11.1) sec 13.3 H INR (0.9-1.1) 1.4 H VBG Lactate (0.6-1.4) mmol/L 1.4 Sodium (136-145) mmol/L 139 Potassium (3.5-5.1) mmol/L 3.9 Chloride (98-107) mmol/L 103 Carbon Dioxide (21.0-32.0) mmol/L 28.8 Anion Gap (3-11) mmol/L 7.2 BUN (7-18) mg/dL 28 H Creatinine (0.55-1.02) mg/dL 1.1 H Est GFR (CKD-EPI 2020) (mL/min/1.73m2) 48.94 Glucose (74-106) mg/dL 90 Calcium (8.5-10.1) mg/dL 8.5 Total Bilirubin (0.2-1.0) mg/dL 4.0 H AST (15-37) U/L 83 H ALT (14-59) U/L 84 H Alkaline Phosphatase (46-116) U/L 195 H Ammonia (11-32) umol/L 104 H Total Protein (6.4-8.2) g/dL 6.0 L Albumin (3.4-5.0) g/dL 2.1 L TSH (0.36-3.74) uIU/mL 2.41 Medical Decision Making <JESSICA Mabry - Last Filed: 10/26/23 08:24> 88-year-old female alert and oriented x 2 presenting with intermittent progressively worsening confusion over the course the past several days and absence of any falls or known trauma. Vitals been stable, CBC within normal limits for patient, chemistry with elevated bilirubin at 4, not significantly changed from prior, mild hepatitis, consistent with prior evaluations, mild dehydration with a gap of 13, CT head which does not show evidence of acute abnormality per radiology interpretation my review, INR 1.4, unchanged from prior, BUN elevated at 28, ammonia 104, suspect symptoms are related to hepatic encephalopathy. Suspect element of dehydration last echocardiogram from several months ago with an ejection fraction of 58%, will give slow fluid boluses. Will initiate lactulose once CTs are interpreted. CT abdomen and pelvis with cirrhosis and portal venous hypertension with splenomegaly ascites and abdominal gastroesophageal varices, and increased abdominal wall hernia. Mild dilation of the proximal small bowel loops suggesting early obstruction. Multiloculated collection within the hernia sac per radiology with a partially occlusive thrombus in the SMV extending into the main portal vein. Case was discussed with Dr. Pelletier who will try to reduce hernia at bedside. I did attempt several times in the emergency department without success. Patient is not in any acute distress. Call to [facility] gastroenterology to review anticoagulation of the SMV and portal vein. Had a discussion regarding advance directives patient is DNR/DNI, she does not wish to be transferred to tertiary care for any additional surgical intervention and understands the risks associated with this decision. Will transition to [facility] pending gastroenterology from [facility] return call regarding anticoagulation of SMV thrombus extension into the portal vein which is partially occlusive and admission to Dr. Apple who is aware of this case and has been consulted. 1619: [facility]: Care assumed from provider (JESSICA Mabry) Please see their initial HPI, PE, and documentation. Discussed patient details and case and pending workup and disposition. Patient is hemodynamically stable, and alert and oriented. At the time of signout Dr. Pelletier with general surgery is at bedside for paracentesis and evaluation. Awaiting [facility] GI consultation to discuss anticoagulation for patient due to the superior mesenteric vein thrombosis. Expected disposition is admission. According to colleagues report patient does not wish to be transferred to a tertiary facility she is DNR/DNI. 1623: [facility] Dr. Neely there are multiple reasons to NOT give anticoagulation at this time, due to patient not being on a beta consuelo, hx of esophageal varicies, she recommends broad infectious workup, including paracentesis, Lactulose to produce 3-4 BM's a day and Rifaxamin 550mg BID. Dr. Pelletier out of room, reports paracentesis was unsuccessful at his point and she also does not recommend anticoagulation at this time. Will go ahead and page hospitalist for admission. 1645: Spoke with Dr. Ramirez and Nargis Sarmiento with hospitalist team spoke with patient and family regarding plan of care. They do not want any heroics do not want surgery or transfer to tertiary facility at this time. They are aware of going up for medical management and comfort measures only they verbalized understanding. Patient is DNR/DNI and wishes to remain so. 1651: Nargis Sarmiento at for patient eval. Patient transferred up to floor in stable condition. Family at bedside. This text was generated using theBench dictation system, please disregard any oddities of phrase or misspellings. Quality:SDOH Health Related Social Needs: No Data to Display <Belinda Concepcion NP - Last Filed: 10/24/23 18:11> 88-year-old female alert and oriented x 2 presenting with intermittent progressively worsening confusion over the course the past several days and absence of any falls or known trauma. Vitals been stable, CBC within normal limits for patient, chemistry with elevated bilirubin at 4, not significantly changed from prior, mild hepatitis, consistent with prior evaluations, mild dehydration with a gap of 13, CT head which does not show evidence of acute abnormality per radiology interpretation my review, INR 1.4, unchanged from prior, BUN elevated at 28, ammonia 104, suspect symptoms are related to hepatic encephalopathy. Suspect element of dehydration last echocardiogram from several months ago with an ejection fraction of 58%, will give slow fluid boluses. Will initiate lactulose once CTs are interpreted. CT abdomen and pelvis with cirrhosis and portal venous hypertension with splenomegaly ascites and abdominal gastroesophageal varices, and increased abdominal wall hernia. Mild dilation of the proximal small bowel loops suggesting early obstruction. Multiloculated collection within the hernia sac per radiology with a partially occlusive thrombus in the SMV extending into the main portal vein. Case was discussed with Dr. Pelletier who will try to reduce hernia at bedside. I did attempt several times in the emergency department without success. Patient is not in any acute distress. Call to [facility] gastroenterology to review anticoagulation of the SMV and portal vein. Had a discussion regarding advance directives patient is DNR/DNI, she does not wish to be transferred to tertiary care for any additional surgical intervention and understands the risks associated with this decision. Will transition to [facility] pending gastroenterology from [facility] return call regarding anticoagulation of SMV thrombus extension into the portal vein which is partially occlusive and admission to Dr. Dena Pearson who is aware of this case and has been consulted. 1619: [facility]: Care assumed from provider (JESSICA Mabry) Please see their initial HPI, PE, and documentation. Discussed patient details and case and pending workup and disposition. Patient is hemodynamically stable, and alert and oriented. At the time of signout Dr. Pelletier with general surgery is at bedside for paracentesis and evaluation. Awaiting [facility] GI consultation to discuss anticoagulation for patient due to the superior mesenteric vein thrombosis. Expected disposition is admission. According to colleagues report patient does not wish to be transferred to a tertiary facility she is DNR/DNI. 1623: [facility] Dr. Neely there are multiple reasons to NOT give anticoagulation at this time, due to patient not being on a beta consuelo, hx of esophageal varicies, she recommends broad infectious workup, including paracentesis, Lactulose to produce 3-4 BM's a day and Rifaxamin 550mg BID. Dr. Pelletier out of room, reports paracentesis was unsuccessful at his point and she also does not recommend anticoagulation at this time. Will go ahead and page hospitalist for admission. 1645: Spoke with Dr. Ramirez and Nargis Sarmiento with hospitalist team spoke with patient and family regarding plan of care. They do not want any heroics do not want surgery or transfer to tertiary facility at this time. They are aware of going up for medical management and comfort measures only they verbalized understanding. Patient is DNR/DNI and wishes to remain so. 1652: Nargis Sarmiento at for patient eval. Patient transferred up to floor in stable condition. Family at bedside. This text was generated using WEEZEVENTation system, please disregard any oddities of phrase or misspellings. 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 She has seen hematology and thought it was due to a mixed etiology Compression fracture of lumbar vertebra (Acute) Portal hypertension with esophageal varices (Chronic) Grade 1. 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 Pt unable to tolerate propranolol. Primary biliary cholangitis (Chronic) followed by GI [facility], associated with chronically elevated transaminases Primary osteoarthritis of left knee (Acute) Injection: 03/23/23; 08/14/22; 05/15/2022; 01/19/2022 ([facility]) Medical History Recurrent right pleural effusion (07/2023) Status post thoracentesis July 2023 Pulmonary edema (~06/25/23) Gram-positive cocci bacteremia (~01/2023) s/p 6 wks IV abx 2022 History of left breast cancer Invasive intraductal, on arimedex, followed by Oncology Squamous cell carcinoma of skin of left lower extremity 3.5cm LLE Cystocele and rectocele with incomplete uterovaginal prolapse Fitted with #3 Gelhorn pessary Sept 2021; pending eval at [facility] for poss surgery. Currently using a continence dish with knob. Persistent cystocele is present. Consultation with [facility] has been undertaken and she has an in person visit with them at the end of June,. They recommended colpocleisis. 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 Kaden Escobedo 06-23-2013 Surgical History History of thoracentesis (~07/2023) History of colpocleisis [place] colpocleisis posterior perineorrhaphy cystoscopy at [facility] 09/05/2022 Status post Mohs surgery for squamous cell carcinoma of skin H/O inguinal hernia repair ganglion, left ankle Rotator Cuff Repair (06/23/13) Right with distal clavical excision Oseotomy (10/06/98) TONNY BILATERAL FEET Nuclear senile cataract EGD - MAC (12/31/17) Colonoscopy - MAC (12/31/17) Colonoscopy - IV Sedation 10 + years ago- normal Biopsy of breast (04/18/17) benign breast tissue with cyst wall Family History Mother , 88 Diabetes Essential hypertension Heart disease Hyperlipidemia Father , 63 Neoplasm BLADDER Sister Hyperlipidemia Breast cancer Brother Diabetes Essential hypertension Hyperlipidemia Neoplasm PROSTATE Prostate cancer Maternal Grandfather No problems noted. Paternal Grandfather No problems noted. Maternal Grandmother Diabetes Paternal Grandmother No problems noted. 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 Pets and animals: Yes Pets and animals: dog(s) Sexually active: No Do you think of yourself as: straight/heterosexual Current gender identity: female What is your relationship status?: How often do you talk on the phone with friends or family?: three or more times per week How often do you get together with friends or relatives?: once per week How often do you attend latter-day or scientologist services?: decline to answer Do you belong to any clubs or organized social groups?: no Panel score (0-1 are the most socially isolated patients): 1 What type of physical activity do you participate in: none Frequency: does not exercise Nhung/Jehovah'S Witness: No preference Special nhung needs: No Seatbelt use: always Drive intox or ride w/intox electric screw driver operator: No Do you feel safe at home: Yes Do you feel safe in your relationship?: Yes Additional Social history: 07/31/23 has been in [facility] for past 3 weeks Female Reproductive History Menstrual Menopause type: natural History History 2 Para 2 Hx # Term Pregnancies Multiple births Hx # Pregnancies Ectopic pregnancies AB induced Hx Number of Living Children AB spontaneous Past Pregnancies Del. Date GA/Weeks # Preg Succ Route Wgt Sex Labor Lgth Anesthesia Location Prov Complic 12/13/1955 40 No Yes vaginal Female 10/12/1959 40 No Yes vaginal Male Sign Out <JESSICA Mabry - Last Filed: 10/26/23 08:24> Sign Out Data: Sign Out Comment: pending [facility] return call regarding anticoagulation for partially occlusive SMV thrombus with extension to portal vein. Dr Apple aware of pt, DNR. Does not want transfer. Last updated by Yaneli Josue PA at 10/24/23 15:57
[2023-10-24 14:09] LABS: Bilirubin Negative (Negative); Blood Negative (Negative); Clarity Clear (Clear); Glucose Negative (Negative); Ketones Trace mg/dL (Negative); Leukocyte Esterase Negative (Negative); Nitrite Negative (Negative); Specific Gravity 1.015 (1.005-1.025)
[2023-10-24 14:28] LABS: Troponin I < 50 ng/L (< or =60)
[2023-10-24] MEDS: Lactulose 20 GM/30 ML CUP 30 GM PO (14:55)
[2023-10-24] MEDS: MORPHine 10 MG/ML VIAL 2 MG IVP (14:56)
--- NOTE | 2023-10-24 16:35 | NUR.NOTE ---
Nursing Note: RN Max and Mariam attempted to place NG tube on patient. 16F and 12F NG tube both unsuccesful, met resistance in both nostrils . Surgeon made aware, no new orders at thist time
--- NOTE | 2023-10-24 17:07 | W.PM.HP.N ---
Date of service: 10/24/23 Time of Service: 17:07 Assessment and Plan Assessment and plan (1) Acute hepatic encephalopathy: Status: Acute Assessment and plan: admit to med/surg, supportive care. patient and son decline transfer. will administer lactulose rectally in setting of incarcerated hernia avoid hepatotoxic drugs (2) Hernia of small intestine: Status: Acute Assessment and plan: seen by surgery, unable to reduce, unable to pass ngt IV hydration, antiemetics, pain management surgery will follow declines higher level of care (3) Pleural effusion on right: Status: Resolved Assessment and plan: surgery following, possible thoracentesis planned by surgery. (4) Thrombosis of mesenteric vein: Status: Acute Assessment and plan: discussed with surgery, no anticoagulation recommended. (5) Seizure disorder: Status: Chronic Assessment and plan: continue IV keppra seizure precautions (6) Portal hypertension with esophageal varices: Status: Chronic Assessment and plan: anticoagulation contraindicated. discussed with DR Apple History of Present Illness History of Present Illness Chief Complaint: altered mental status Review of Systems Unobtainable due to mental status PFSH All Active Problems (Updated 10/26/23 @ 11:10 by Elina Charles MD) Hospice care (Acute) Thrombosis of mesenteric vein (Acute) Hernia of small intestine (Acute) Acute hepatic encephalopathy (Acute) Primary osteoarthritis of right knee (Acute) Injection: 03/23/23; 11/20/2022; 08/14/22; 05/15/2022; 01/19/2022 ([facility] [place]) Essential tremor (Acute) Gallstones (Acute) RUQ pain & diarrhea Lymphedema (Acute) Elevated INR (Acute) 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 She has seen hematology and thought it was due to a mixed etiology Compression fracture of lumbar vertebra (Acute) Portal hypertension with esophageal varices (Chronic) Grade 1. 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 EGD with small varices in 10/2021. Pt unable to tolerate propranolol. Primary biliary cholangitis (Chronic) followed by GI [facility] [place], associated with chronically elevated transaminases Primary osteoarthritis of left knee (Acute) Injection: 03/23/23; 08/14/22; 05/15/2022; 01/19/2022 ([facility] [place]) Medical History (Updated 10/26/23 @ 11:10 by Elina Charles MD) Partial small bowel obstruction Incarcerated incisional hernia Recurrent right pleural effusion (07/2023) Status post thoracentesis July 2023 Pulmonary edema (~06/25/23) Gram-positive cocci bacteremia (~01/2023) s/p 6 wks IV abx 2022 History of left breast cancer Invasive intraductal, on arimedex, followed by Oncology Squamous cell carcinoma of skin of left lower extremity 3.5cm LLE Cystocele and rectocele with incomplete uterovaginal prolapse Fitted with #3 Gelhorn pessary Feb 2022; pending eval at [facility] [place] for poss surgery. Currently using a continence dish with knob. Persistent cystocele is present. Consultation with [facility] has been undertaken and she has an in person visit with them at the end of June,. They recommended colpocleisis. 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 Kaden Escobedo 06-23-2013 Surgical History History of thoracentesis (~07/2023) History of colpocleisis [place]Fort colpocleisis posterior perineorrhaphy cystoscopy at [facility] 09/05/2022 Status post Mohs surgery for squamous cell carcinoma of skin H/O inguinal hernia repair ganglion, left ankle Rotator Cuff Repair (06/23/13) Right with distal clavical excision Oseotomy (10/06/98) TONNY BILATERAL FEET Nuclear senile cataract EGD - MAC (12/31/17) Colonoscopy - MAC (12/31/17) Colonoscopy - IV Sedation 10 + years ago- normal Biopsy of breast (04/18/17) benign breast tissue with cyst wall Family History Mother , 88 Diabetes Essential hypertension Heart disease Hyperlipidemia Father , 63 Neoplasm BLADDER Sister Hyperlipidemia Breast cancer Brother Diabetes Essential hypertension Hyperlipidemia Neoplasm PROSTATE Prostate cancer Maternal Grandfather No problems noted. Paternal Grandfather No problems noted. Maternal Grandmother Diabetes Paternal Grandmother No problems noted. 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 Pets and animals: Yes Pets and animals: dog(s) Sexually active: No Do you think of yourself as: straight/heterosexual Current gender identity: female What is your relationship status?: How often do you talk on the phone with friends or family?: three or more times per week How often do you get together with friends or relatives?: once per week How often do you attend evangelical or congregational services?: decline to answer Do you belong to any clubs or organized social groups?: no Panel score (0-1 are the most socially isolated patients): 1 What type of physical activity do you participate in: none Frequency: does not exercise Nhung/Restoration: No preference Special nhung needs: No Seatbelt use: always Drive intox or ride w/intox tilt tray driver: No Do you feel safe at home: Yes Do you feel safe in your relationship?: Yes Additional Social history: 07/31/23 has been in [facility] past 3 weeks Female Reproductive History Menstrual Menopause type: natural History History 2 Para 2 Hx # Term Pregnancies Multiple births Hx # Pregnancies Ectopic pregnancies AB induced Hx Number of Living Children AB spontaneous Past Pregnancies Del. Date GA/Weeks # Preg Succ Route Wgt Sex Labor Lgth Anesthesia Location Prov Complic 12/13/1955 40 No Yes vaginal Female 10/12/1959 40 No Yes vaginal Male Meds Allergies and Home Medications Allergies Allergy/AdvReac Type Severity Reaction Status Date / Time hydralazine Allergy Intermediate Other (See Verified 10/22/23 11:28 Comment) red yeast rice Allergy rash Uncoded 10/22/23 11:28 Home Medications Medication Instructions Recorded Confirmed Type cholecalciferol (vitamin D3) 50 1,000 unit PO DAILY 09/01/16 10/22/23 History mcg (2,000 unit) capsule (Vitamin D3) calcium carbonate (Calcium 600) 600 mg PO DAILY PRN Acid Reflux 01/05/22 10/22/23 History milk thistle 150 mg capsule 150 mg PO DAILY 01/05/22 10/22/23 History ursodiol 300 mg capsule 300 mg PO TID 12/06/22 10/25/23 History Lactobacillus acidophilus 1 1,000 mmu cells PO DAILY #60 caps 01/27/23 10/22/23 Rx billion cell capsule magnesium gluconate 27 mg 27 mg PO BID #180 tabs 01/27/23 10/22/23 Rx magnesium (500 mg) tablet albuterol sulfate 90 mcg/actuation 1 puff inhalation Q6H PRN #8.5 04/10/23 10/25/23 Rx aerosol inhaler (ProAir HFA) grams levetiracetam 750 mg tablet 750 mg PO BID #180 tabs 09/12/23 10/25/23 Rx potassium chloride 10 mEq 10 meq PO TID #270 tabs 09/14/23 10/25/23 Rx tablet,extended release spironolactone 25 mg tablet 25 mg PO DAILY #90 tabs 09/14/23 10/25/23 Rx sulfamethoxazole 800 1 tab PO DAILY #90 tabs 09/14/23 10/25/23 Rx mg-trimethoprim 160 mg tablet torsemide 20 mg tablet 20 mg PO DAILY #90 tabs 09/14/23 10/25/23 Rx acetaminophen 650 mg rectal 650 mg ID Q6H PRN fever, mild pain 10/26/23 10/26/23 Rx suppository #6 supp bisacodyl 10 mg rectal suppository 10 mg ID daily PRN constipation #2 10/26/23 10/26/23 Rx (Dulcolax (bisacodyl)) supp haloperidol lactate 2 mg/mL oral 1 mg (0.5 mL) PO Q6H PRN agitation 10/26/23 10/26/23 Rx concentrate #15 mL hyoscyamine sulfate 0.125 mg 0.125 - 0.25 mg (1 - 2 x 0.125 mg) 10/26/23 10/26/23 Rx disintegrating tablet PO Q4H PRN secretions #24 tabs lorazepam 0.5 mg tablet 0.5 mg PO Q4H PRN anxiety #10 tabs 10/26/23 Rx lorazepam 1 mg tablet 1 mg PO Q4H PRN anxiety, JEROME or 10/26/23 10/26/23 Rx nausea #6 tabs morphine concentrate 100 mg/5 mL 5 - 20 mg (0.25 - 1 mL) PO Q1-4H 10/26/23 10/26/23 Rx (20 mg/mL) oral solution PRN moderate to severe pain or shortness of breath #30 mL morphine concentrate 100 mg/5 mL See Rx Instructions PO Q1H PRN #30 10/26/23 Rx (20 mg/mL) oral solution mL ondansetron 4 mg disintegrating 4 mg PO Q6H PRN nausea and 10/26/23 10/26/23 Rx tablet vomiting #30 tabs prochlorperazine maleate 10 mg 10 mg PO Q6H PRN nausea and 10/26/23 10/26/23 Rx tablet vomiting #6 tabs Exam Const General: frail appearing and ill appearing chronically Nutritional Appearance: cachectic Orientation: alert, awake, oriented to person, oriented to place and confused (poor historian, son reports worsened confusion in evenings) [facility] Head: atraumatic Ears: external ears normal General nose exam: external nose normal Face and sinus: normal facial exam Mouth: oral mucosa abnormal (dry) Eyes General: appearance normal, both eyes and all related structures Sclera: scleral abnormality bilaterally (icteric) other Neck Neck: full ROM Chest Chest: normal inspection of the chest Resp Effort & Inspection: normal respiratory effort Auscultation: diminished lung sounds (bases) Cardio Jugular venous pressure: no JVD Rate: regular rate Rhythm: regular rhythm GI Inspection: edema and distended Palpation: hernia (Unable to reduce) Skin General skin exam: jaundice Neuro General: patient alert, patient awake, oriented Patient Orientation: Person and Place and moves all extremities Extrem General: normal to inspection Psych Mental Status: mental status grossly normal Results Labs 10/26/23 06:53 10/26/23 06:53 Labs: Laboratory Results - last 24 hr 10/24/23 10/24/23 10/24/23 12:10 12:12 12:22 WBC 9.53 RBC 4.08 Hgb 12.9 Hct 38.0 MCV 93 MCH 31.6 MCHC 33.9 RDW 18.1 H Plt Count 155 MPV 11.6 H Immature Gran % 0.6 Neutrophils % 70.1 Lymphocytes % 15.9 Monocytes % 10.3 Eosinophils % 2.4 Basophils % 0.7 Nucleated RBC % 0.0 Absolute Neutrophils 6.67 Absolute Lymphocytes 1.52 Absolute Monocytes 0.98 H Absolute Eosinophils 0.23 Absolute Basophils 0.07 PT 13.3 H INR 1.4 H VBG Lactate 1.4 Sodium 139 Potassium 3.9 Chloride 103 Carbon Dioxide 28.8 Anion Gap 7.2 BUN 28 H Creatinine 1.1 H Est GFR (CKD-EPI 2020) 48.94 Glucose 90 Calcium 8.5 Total Bilirubin 4.0 H AST 83 H ALT 84 H Alkaline Phosphatase 195 H Ammonia 104 H Troponin I < 50 Total Protein 6.0 L Albumin 2.1 L TSH 2.41 Urine Color Urine Clarity Urine pH Ur Specific Winner Urine Protein Urine Ketones Urine Blood Urine Nitrite Urine Bilirubin Urine Urobilinogen Ur Leukocyte Esterase Urine Glucose 10/24/23 13:55 WBC RBC Hgb Hct MCV MCH MCHC RDW Plt Count MPV Immature Gran % Neutrophils % Lymphocytes % Monocytes % Eosinophils % Basophils % Nucleated RBC % Absolute Neutrophils Absolute Lymphocytes Absolute Monocytes Absolute Eosinophils Absolute Basophils PT INR VBG Lactate Sodium Potassium Chloride Carbon Dioxide Anion Gap BUN Creatinine Est GFR (CKD-EPI 2020) Glucose Calcium Total Bilirubin AST ALT Alkaline Phosphatase Ammonia Troponin I Total Protein Albumin TSH Urine Color Yellow Urine Clarity Clear Urine pH 7.0 Ur Specific Winner 1.015 Urine Protein Negative Urine Ketones Trace H Urine Blood Negative Urine Nitrite Negative Urine Bilirubin Negative Urine Urobilinogen 1.0 H Ur Leukocyte Esterase Negative Urine Glucose Negative Last Vital Signs Temp 36.4 C L 10/24/23 11:49 Pulse 93 H 10/24/23 11:49 Resp 16 10/24/23 11:53 BP 124/61 10/24/23 11:49 Pulse Ox 95 10/24/23 11:53 Time Spent Time spent with Patient: 40-54 minutes Time was spent: preparing to see the patient(eg.review tests), obtaining and/or reviewing separately otained hiistory, ordering medications,tests, procedures, indepentently interpreting results, counseling the patient and care coordination
[2023-10-24 18:21] VITALS: BP 111/61; PULSE 93; RESP 16; TEMP 37; O2SAT 92
[2023-10-24 18:22] VITALS: BP 111/61; PULSE 93; RESP 16; TEMP 37; O2SAT 92
--- NOTE | 2023-10-24 19:35 | SCONE_ITS ---
Date of service: 10/24/23 Time of Service: 19:35 Assessment and Plan Assessment and plan (1) Elevated INR: Status: Acute (2) Osteoporosis: Status: Chronic (3) Protein-calorie malnutrition, moderate: Status: Acute (4) Portal hypertension with esophageal varices: Status: Chronic (5) Elevated LFTs: Status: Acute (6) Acute hepatic encephalopathy: Status: Acute (7) Gallstones: Status: Acute (8) Thrombosis of mesenteric vein: Status: Acute Assessment and plan: - Patient is not a candidate for anticoagulation due to her independently elevated INR from cirrhosis/liver failure due to PBC (9) Elevated bilirubin: Status: Acute Assessment and plan: Acute on chronic liver failure (10) Cirrhosis: Status: Acute Qualifiers: 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 Patient has deviation of her nasal septum and we on her are unable to place an NG tube. I did attempt to do a paracentesis. We only got about 100 cc of fluid out. At this point we will admit her for fluids and pain management. Hopefully the bowel will decompress with rest. Patient was very adamant that she did not want any surgery. If the bowel does not decompress then she would want to go into acute hospice care and not want any aggressive surgical interventions. Patient was very clear in her thinking and thought processes. I did discuss the case with Yaneli Josue in the ER. She did discuss the case with GI at [facility]. I discussed the case with Dr. Apple. I did personally review all of her CT scans and labs. This document was created with voice activated software and may contain errors.' 90 mins spent in direct pt care and 30 in non face to face time (13) Primary osteoarthritis of left knee: Status: Acute (14) Seizure disorder: Status: Chronic (15) Compression fracture of lumbar vertebra: Status: Acute (16) Pleural effusion on right: Status: Resolved (17) Lymphedema: Status: Acute (18) Essential hypertension: (19) Hypercholesterolemia: (20) Diabetes mellitus: Qualifiers: Diabetes mellitus complication status: without complication Diabetes mellitus intermediate project manager insulin use: without intermediate project manager use Diabetes mellitus type: t ype 2 Qualified Code(s): E11.9 - Type 2 diabetes mellitus without complications (21) Incarcerated incisional hernia: History of Present Illness Narrative: Elina Duarte is a 88-year-old female who is well-known to me. She has a history of primary biliary sclerosis/cholangitis. This is caused cirrhosis. Her cirrhosis appears to be progressing. She has had problems with confusion and elevated ammonia levels. She also has developed ascites in her abdomen and a right-sided pleural effusion from the ascites. Today she presents to the ER with acute onset of abdominal pain. She has a known abdominal hernia and is developed incarceration. I did personally review her CT films. She does have a moderate amount of ascites in the abdomen. I discussed with the patient and her send she did not want to be transferred to [facility] for any more surgeries or procedures. Patient understood that if she were to have surgery that she would not do well and she is adamant she does not want any surgical interventions. The patient is very clear and her thought process follows a logical progression. Her hernia defect is quite large. I am going to attempt today to do a paracentesis and place an NG tube. Hopefully this will cause the bowel to decompress so that the hernia can return into the abdominal cavity. If this does not decompress the bowel then she is at risk for continuing edema and inflammation and possible ischemic necrosis and continued obstruction. Patient was very clear in stating she would go into hospice then and that she did not want any further surgical interventions. I did discuss this with her son as well and he abides by his mother's wishes. Review of Systems All systems reviewed & are unremarkable except as noted in HPI and below PFSH All Active Problems (Updated 10/28/23 @ 00:05 by KUN SCHAEFER) Palliative care encounter (Acute) Hospice care (Acute) Thrombosis of mesenteric vein (Acute) Hernia of small intestine (Acute) Acute hepatic encephalopathy (Acute) Primary osteoarthritis of right knee (Acute) Injection: 03/23/23; 11/20/2022; 08/14/22; 05/15/2022; 01/19/2022 ([facility]) Essential tremor (Acute) Gallstones (Acute) RUQ pain & diarrhea Lymphedema (Acute) Elevated INR (Acute) 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 She has seen hematology and thought it was due to a mixed etiology Compression fracture of lumbar vertebra (Acute) Portal hypertension with esophageal varices (Chronic) Grade 1. Documented by EGD at 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 Pt unable to tolerate propranolol. Primary biliary cholangitis (Chronic) followed by GI [facility], associated with chronically elevated transaminases Primary osteoarthritis of left knee (Acute) Injection: 03/23/23; 08/14/22; 05/15/2022; 01/19/2022 ([facility]) Medical History Partial small bowel obstruction Incarcerated incisional hernia Recurrent right pleural effusion (07/2023) Status post thoracentesis July 2023 Pulmonary edema (~06/25/23) Gram-positive cocci bacteremia (~01/2023) s/p 6 wks IV abx 2022 History of left breast cancer Invasive intraductal, on arimedex, followed by Oncology Squamous cell carcinoma of skin of left lower extremity 3.5cm LLE Cystocele and rectocele with incomplete uterovaginal prolapse Fitted with #3 Gelhorn pessary Feb 2022; pending eval at [facility] for poss surgery. Currently using a continence dish with knob. Persistent cystocele is present. Consultation with [facility] has been undertaken and she has an in person visit with them at the end of June,. They recommended colpocleisis. 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 Kaden Escobedo 06-23-2013 Surgical History History of thoracentesis (~07/2023) History of colpocleisis LeFort colpocleisis posterior perineorrhaphy cystoscopy at [facility] 09/05/2022 Status post Mohs surgery for squamous cell carcinoma of skin H/O inguinal hernia repair ganglion, left ankle Rotator Cuff Repair (06/23/13) Right with distal clavical excision Oseotomy (10/06/98) TONNY BILATERAL FEET Nuclear senile cataract EGD - MAC (12/31/17) Colonoscopy - MAC (12/31/17) Colonoscopy - IV Sedation 10 + years ago- normal Biopsy of breast (04/18/17) benign breast tissue with cyst wall Family History Mother , 88 Diabetes Essential hypertension Heart disease Hyperlipidemia Father , 63 Neoplasm BLADDER Sister Hyperlipidemia Breast cancer Brother Diabetes Essential hypertension Hyperlipidemia Neoplasm PROSTATE Prostate cancer Maternal Grandfather No problems noted. Paternal Grandfather No problems noted. Maternal Grandmother Diabetes Paternal Grandmother No problems noted. 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 Pets and animals: Yes Pets and animals: dog(s) Sexually active: No Do you think of yourself as: straight/heterosexual Current gender identity: female What is your relationship status?: How often do you talk on the phone with friends or family?: three or more times per week How often do you get together with friends or relatives?: once per week How often do you attend zoroastrian or pentecostal services?: decline to answer Do you belong to any clubs or organized social groups?: no Panel score (0-1 are the most socially isolated patients): 1 What type of physical activity do you participate in: none Frequency: does not exercise Nhung/Religious: No preference Special nhung needs: No Seatbelt use: always Drive intox or ride w/intox regional intermodal truck driver: No Do you feel safe at home: Yes Do you feel safe in your relationship?: Yes Additional Social history: 07/31/23 has been in [facility] for past 3 weeks Female Reproductive History Menstrual Menopause type: natural History History 2 2 Para 2 Hx # Term Pregnancies Multiple births Hx # Pregnancies Ectopic pregnancies AB induced Hx Number of Living Children AB spontaneous Past Pregnancies Del. Date GA/Weeks # Preg Succ Route Wgt Sex Labor Lgth Anesth esia Location Prov Complic 12/13/1955 40 No Yes vaginal Female 10/12/1959 40 No Yes vaginal Male Exam Narrative Exam Narrative: PHYSICAL EXAM GENERAL APPEARANCE: Alert, healthy appearance, oriented, x 3,? in no acute distress HYDRATION: Well hydrated HEAD, EYES, EARS, NECK, THROAT: Head is normocephalic, pupils equal, round, reactive to light and accommodation, ocular movement intact, sclera clear and no jaundice. ?Dentition intact. LUNGS: Decreased breath sounds right lower lobe. ?HEART: Regular rate and rhythm. no murmurs ABDOMEN: Herniated bowel 3 with known abdominal hernia. She has had multiple repairs of this area previously. The abdomen is tender over the incarcerated bowel, but does not have diffuse peritoneal signs. Results Last Vital Signs Temp 37 C 10/24/23 18:22 Pulse 93 H 10/24/23 18:22 Resp 16 10/24/23 18:22 BP 111/61 10/24/23 18:22 Pulse Ox 92 10/24/23 18:22 Labs 10/26/23 06:53 10/26/23 06:53 Labs: Laboratory Results - last 24 hr 10/24/23 10/24/23 10/24/23 12:10 12:12 12:22 WBC 9.53 RBC 4.08 Hgb 12.9 Hct 38.0 MCV 93 MCH 31.6 MCHC 33.9 RDW 18.1 H Plt Count 155 MPV 11.6 H Immature Gran % 0.6 Neutrophils % 70.1 Lymphocytes % 15.9 Monocytes % 10.3 Eosinophils % 2.4 Basophils % 0.7 Nucleated RBC % 0.0 Absolute Neutrophils 6.67 Absolute Lymphocytes 1.52 Absolute Monocytes 0.98 H Absolute Eosinophils 0.23 Absolute Basophils 0.07 PT 13.3 H INR 1.4 H VBG Lactate 1.4 Sodium 139 Potassium 3.9 Chloride 103 Carbon Dioxide 28.8 Anion Gap 7.2 BUN 28 H Creatinine 1.1 H Est GFR (CKD-EPI 2020) 48.94 Glucose 90 Calcium 8.5 Total Bilirubin 4.0 H AST 83 H ALT 84 H Alkaline Phosphatase 195 H Ammonia 104 H Troponin I < 50 Total Protein 6.0 L Albumin 2.1 L TSH 2.41 Urine Color Urine Clarity Urine pH Ur Specific [place] Urine Protein Urine Ketones Urine Blood Urine Nitrite Urine Bilirubin Urine Urobilinogen Ur Leukocyte Esterase Urine Glucose 10/24/23 13:55 WBC RBC Hgb Hct MCV MCH MCHC RDW Plt Count MPV Immature Gran % Neutrophils % Lymphocytes % Monocytes % Eosinophils % Basophils % Nucleated RBC % Absolute Neutrophils Absolute Lymphocytes Absolute Monocytes Absolute Eosinophils Absolute Basophils PT INR VBG Lactate Sodium Potassium Chloride Carbon Dioxide Anion Gap BUN Creatinine Est GFR (CKD-EPI 2020) Glucose Calcium Total Bilirubin AST ALT Alkaline Phosphatase Ammonia Troponin I Total Protein Albumin TSH Urine Color Yellow Urine Clarity Clear Urine pH 7.0 Ur Specific [place] 1.015 Urine Protein Negative Urine Ketones Trace H Urine Blood Negative Urine Nitrite Negative Urine Bilirubin Negative Urine Urobilinogen 1.0 H Ur Leukocyte Esterase Negative Urine Glucose Negative
[2023-10-24] MEDS: Lactated Ringers 1,000 ML 100 ML IV (21:14)
[2023-10-24 21:15] VITALS: BP 98/53; PULSE 74; RESP 18; TEMP 36.7; O2SAT 94
[2023-10-24] MEDS: MORPHine 4 MG/ML SYR IVP (21:15)
[2023-10-24] MEDS: Ondansetron 4 MG/2 ML VIAL IVP (21:15)
[2023-10-24] MEDS: Lactulose 20 GM/30 ML CUP 200 GM PR (21:16)
[2023-10-24] MEDS: levETIRAcetam 750 MG in Normal Saline 100 ML 400 MG IVPB (22:00)
[2023-10-24 22:48] VITALS: BP 121/100; PULSE 96; RESP 16; TEMP 36.5; O2SAT 90
[2023-10-25 06:51] LABS: Abs Immature Grans 0.09 10^3/uL (0.0-0.06); Absolute Basophil Count 0.18 10^3/uL (0.0-0.2); Absolute Eosinophil Count 0.18 10^3/uL (0.0-0.7); Absolute Lymphocyte Count 1.39 10^3/uL (1.2-3.4); Basophils % 1.5 %; Eosinophils % 1.5 %; HCT 38.6 % (36.0-46.0); HGB 12.5 g/dL (11.2-15.7); Immature Grans % 0.7 %; Lymphocytes % 11.6 %; MCH 31.7 pg (27.0-33.0); MCHC 32.4 % (32.0-36.0); MCV 98 fL (80-95); Monocytes % 10.8 %; Neutrophils % 73.9 %; Platelet Count 140 10^3/uL (130-400); RBC 3.94 10^6/uL (3.93-5.22); RDW 18.5 % (11.7-14.6); RDW-SD 66.4 fL; WBC 12.01 10^3/uL (4.4-10.8)
[2023-10-25 06:53] LABS: Absolute Neutrophil Count 8.88 10^3/uL (1.2-6.7)
[2023-10-25 07:05] LABS: ALT 78 U/L (14-59); AST 83 U/L (15-37); Albumin 1.9 g/dL (3.4-5.0); Alkaline Phosphatase 166 U/L (46-116); Anion Gap 7.9 mmol/L (3-11); BUN 28 mg/dL (7-18); CO2 25.1 mmol/L (21.0-32.0); CREATININE 0.9 mg/dL (0.55-1.02); Calcium 8.4 mg/dL (8.5-10.1); Chloride 108 mmol/L (98-107); Estimated GFR 62.26 (mL/min/1.73m2); Glucose 71 mg/dL (74-106); Sodium 141 mmol/L (136-145); Total Protein 5.5 g/dL (6.4-8.2)
[2023-10-25 07:14] VITALS: BP 116/69; PULSE 93; RESP 19; TEMP 36.8; O2SAT 96
[2023-10-25 07:16] LABS: INR 1.3 (0.9-1.1); Prothrombin Time 13.1 sec (9.1-11.1)
[2023-10-25] MEDS: Lactated Ringers 1,000 ML 100 ML IV (07:40)
[2023-10-25] MEDS: Dextrose 50%-Water 25 GM/50 ML SYR (09:36)
[2023-10-25] MEDS: Dextrose 50%-Water 25 GM/50 ML SYR IVP (09:37)
--- NOTE | 2023-10-25 09:49 | NUR.NOTE ---
blood sugar based on AM labs was 71. Clincal coordinator Madiha Puentes made aware. repeat WBG at 0930 was 66. MD notified, 12.5 gams of dextrose given. maintenance fluids switched to D5 LR. At this time discussed plan of care with patient and patients family. patient alert and oriented and aware of her condition. patient and patient family declined lactulose enema at this time.
[2023-10-25] MEDS: levETIRAcetam 750 MG in Normal Saline 100 ML 400 MG IVPB (10:06)
--- NOTE | 2023-10-25 10:50 | INITIAL_ITS ---
Date of service: 10/25/23 Time of Service: 11:04 Care Management Initial Assmt Initial Assessment REASON FOR HOSPITALIZATION:: hepatic encephalopathy, incarcerated hernia PREVIOUS FUNCTIONAL STATUS/SOCIAL/FAMILY SUPPORTS:: Elina, who goes by Gurinder, lives alone in a single family home in [place]. Her daughter Yaneli lives next door and her son Chon lives 5 miles away, both are very supportive. She also has 3 grandchildren who are also helpful. Elina reports that she is independent with her ADL's at baseline and drives. 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 She uses a Walker occasionally when she leave her house. CURRENT FUNCTIONAL STATUS:: Gurinder was lying in bed when CM met with her. Her grandson was in the room visiting. Gurinder stated that she isn't doing well, and is waiting for the MD to talk to her about options. Per report, Gurinder has a blockage, and is not a surgical candidate here. She very clearly stated that she does not want to transfer to [facility], and she does not want surgery. She stated I don't think I'm going to make it out of here this time. She met with palliative care this afternoon, and expressed that she would like to be home, and that her quality of life is important to her. Her son, Chon, has agreed to be her caregiver at home. CM will continue to follow. ADVANCE DIRECTIVES:: [facility] on file; [place] AD, Chon Duarte listed as HCA. Has patient been provided with info about the portal/API?: Yes Did the patient sign up for the portal?: Yes (active) CODE STATUS:: DNR/DNI INSURANCE COVERAGE / FINANCIAL ISSUES:: [facility] CURRENT HOME/COMMUNITY SERVICES/EQUIPMENT:: [employer] PRIMARY CARE PHYSICIAN:: Macarena Blankenship POTENTIAL DISCHARGE NEEDS:: Evaluations for further needs, palliative care consult. PATIENT/FAMILY EDUCATION NEEDS:: Review discharge instructions and limitations, discussion of self care needs including ask me three. ANTICIPATED BARRIERS TO DISCHARGE:: None identified. TRANSPORTATION:: Via private vehicle by family PLAN:: Per report, Gurinder has declined transfer, and is requesting supportive care only at this time. Palliative care will meet with Gurinder and her family to discuss goals of care, which will help determine her discharge plan. Anticipate she will return home when medically cleared with HH vs hospice. She will transport via private vehicle by family. She will follow up with her PCP and discharge plan of care. CM will continue to follow. PFSH All Active Problems (Updated 10/24/23 @ 19:39 by Fina Pelletier DO) Incarcerated incisional hernia (Acute) Pleural effusion on right (Acute) Thrombosis of mesenteric vein (Acute) Partial small bowel obstruction (Acute) Hernia of small intestine (Acute) Acute hepatic encephalopathy (Acute) Primary osteoarthritis of right knee (Acute) Injection: 03/23/23; 11/20/2022; 08/14/22; 05/15/2022; 01/19/2022 ([facility]) Essential tremor (Acute) Gallstones (Acute) RUQ pain & diarrhea Lymphedema (Acute) Elevated INR (Acute) 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 She has seen hematology and thought it was due to a mixed etiology Compression fracture of lumbar vertebra (Acute) Portal hypertension with esophageal varices (Chronic) Grade 1. Documented by EGD at [facility] [id number] Grade 2 12/2022 Elevated LFTs (Acute) Chronic due to primary biliary cholangitis Elevated bilirubin (Acute) Chronic due to primary biliary cholangitis Cirrhosis (Acute) 2.2021-secondary to the primary biliary cholangitis, followed by GI at [facility] EGD with small varices in 10/2021. Pt unable to tolerate propranolol. Primary biliary cholangitis (Chronic) followed by GI [facility], associated with chronically elevated transaminases Primary osteoarthritis of left knee (Acute) Injection: 03/23/23; 08/14/22; 05/15/2022; 01/19/2022 ([facility]) Medical History Recurrent right pleural effusion (07/2023) Status post thoracentesis July 2023 Pulmonary edema (~06/25/23) Gram-positive cocci bacteremia (~01/2023) s/p 6 wks IV abx 2022 History of left breast cancer Invasive intraductal, on arimedex, followed by Oncology Squamous cell carcinoma of skin of left lower extremity 3.5cm LLE Cystocele and rectocele with incomplete uterovaginal prolapse Fitted with #3 Gelhorn pessary Sept 2021; pending eval at [facility] for poss surgery. Currently using a continence dish with knob. Persistent cystocele is present. Consultation with [facility] has been undertaken and she has an in person visit with them at the end of June,. They recommended colpocleisis. 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 Kaden Escobedo 06-23-2013 Surgical History History of thoracentesis (~07/2023) History of colpocleisis LeFort colpocleisis posterior perineorrhaphy cystoscopy at [facility] 09/05/2022 Status post Mohs surgery for squamous cell carcinoma of skin H/O inguinal hernia repair ganglion, left ankle Rotator Cuff Repair (06/23/13) Right with distal clavical excision Oseotomy (10/06/98) TONNY BILATERAL FEET Nuclear senile cataract EGD - MAC (12/31/17) Colonoscopy - MAC (12/31/17) Colonoscopy - IV Sedation 10 + years ago- normal Biopsy of breast (04/18/17) benign breast tissue with cyst wall Family History Mother , 88 Diabetes Essential hypertension Heart disease Hyperlipidemia Father , 63 Neoplasm BLADDER Sister Hyperlipidemia Breast cancer Brother Diabetes Essential hypertension Hyperlipidemia Neoplasm PROSTATE Prostate cancer Maternal Grandfather No problems noted. Paternal Grandfather No problems noted. Maternal Grandmother Diabetes Paternal Grandmother No problems noted. 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 Pets and animals: Yes Pets and animals: dog(s) Sexually active: No Do you think of yourself as: straight/heterosexual Current gender identity: female What is your relationship status?: How often do you talk on the phone with friends or family?: three or more times per week How often do you get together with friends or relatives?: once per week How often do you attend buddhist or buddhist services?: decline to answer Do you belong to any clubs or organized social groups?: no Panel score (0-1 are the most socially isolated patients): 1 What type of physical activity do you participate in: none Frequency: does not exercise Nhung/Worship: No preference Special nhung needs: No Seatbelt use: always Drive intox or ride w/intox driver license technician: No Do you feel safe at home: Yes Do you feel safe in your relationship?: Yes Additional Social history: 07/31/23 has been in [facility] for past 3 weeks Female Reproductive History Menstrual Menopause type: natural History History 2 Para 2 Hx # Term Pregnancies Multiple births Hx # Pregnancies Ectopic pregnancies AB induced Hx Number of Living Children AB spontaneous Past Pregnancies Del. Date GA/Weeks # Preg Succ Route Wgt Sex Labor Lgth Anesth esia Location [facility] 12/13/1953 40 No Yes vaginal Female 10/12/1957 40 No Yes vaginal Male SDOH(Care Management) Screening Will the Patient Participate in the Screening?: Yes Do you worry about having a steady place to live?: no In the past 12 months, have you had to go without electric, gas, oil or water in your home?: no Have you or anyone in your house had to go without enough food to eat?: no Has lack of transportation kept you from medical appointments or from doing things needed for daily living?: no Has anyone in your support network made you feel unsafe for any reason?: no
--- NOTE | 2023-10-25 11:22 | PHA.REVIEW2 ---
Pharmacy Admission Review Admission Clinical Review Admission Pharmacy Review: Incarcerated incisional hernia (Acute) Pleural effusion on right (Acute) Thrombosis of mesenteric vein (Acute) Partial small bowel obstruction (Acute) Hernia of small intestine (Acute) Acute hepatic encephalopathy (Acute) Gallstones (Acute) Lymphedema (Acute) Elevated INR (Acute) Protein-calorie malnutrition, moderate (Acute) Compression fracture of lumbar vertebra (Acute) Elevated LFTs (Acute) Elevated bilirubin (Acute) Cirrhosis (Acute) Primary osteoarthritis of left knee (Acute) hydralazine Allergy (Intermediate, Verified 10/22/23 11:28) Other (See Comment) red yeast rice Allergy (Uncoded 10/22/23 11:28) rash Resuscitation Status DNR/DNI Height 5 ft 2 in Weight 59 kg Comments Comments/Follow Ups: Per morning meeting family does not want any surgical intervention. Patient may be transitioning to LINK TRAINER MAINTENANCE MAN status. If not, then reach out to provider about home meds once patient is no longer NPO. Pharmacy Admission Review Renal Dosing Renal Dosing: BUN 28 mg/dL (7-18) H 10/25/23 06:05 Creatinine 0.9 mg/dL (0.55-1.02) 10/25/23 06:05 Medications needing adjustments: Reviewed (CrCl 37.4 mL/min) List of meds needing interventions: Current medications are okay Anticoagulation Anticoagulation: Hgb 12.5 g/dL (11.2-15.7) 10/25/23 06:05 Hct 38.6 % (36.0-46.0) 10/25/23 06:05 Plt Count 140 10^3/uL (130-400) 10/25/23 06:05 INR 1.3 (0.9-1.1) H 10/25/23 06:50 Creatinine 0.9 mg/dL (0.55-1.02) 10/25/23 06:05 DVT Prophylaxis: Reviewed (SCDs + TEDs, DVT prophylaxis contraindicated per H+P) Opiate Usage Evaluate Pain Scale/Pains Meds: Reviewed (PRN morphine, 1 dose given so far during admission) Scheduled Bowel Reg ordered if on Opiates?: No Relevant Labs Relevant Labs: Sodium 141 mmol/L (136-145) 10/25/23 06:05 Potassium 4.0 mmol/L (3.5-5.1) 10/25/23 06:05 Chloride 108 mmol/L (98-107) H 10/25/23 06:05 Electrolytes, C-Reactive P, ESR: Reviewed (INR decreased from 1.4 to 1.3, WBC increased from 9.53 to 12.01, AST/ALT 83/78, blood culture growing gram positive cocci and abdomen/peritoneal cultures pending) Cardiac Review Cardiac Review: Troponin I < 50 ng/L (< or =60) 10/24/23 12:22 BP, HR, EF%: Reviewed (BP WNL, HR 93) QTc Review QTc: Reviewed (435 from 10/24/23) IV to PO Switch IV Medications: Reviewed (Currently NPO) Home Meds Home Med List reviewed: Intervened (Currently NPO with potential for LINK TRAINER MAINTENANCE MAN status) Relevent Home Meds Not ordered & why?: Calcium carbonate, Vitamin D3, lactobacillus, magnesium gluconate, potassium chloride, spironolactone, Bactrim, torsemide and ursodiol Confirmed that patient currently takes potassium chloride, spironolactone, Bactrim, torsemide and ursodiol with MedHx Current Meds Current Medication Order Review: Reviewed Comments Comments/Follow Ups: Per morning meeting family does not want any surgical intervention. Patient may be transitioning to LINK TRAINER MAINTENANCE MAN status. If not, then reach out to provider about home meds once patient is no longer NPO.
--- NOTE | 2023-10-25 14:33 | W.PM.PROGNOT ---
Date of Service Date of service: 10/25/23 Time of Service: 14:33 Assessment and Plan Assessment and plan (1) Acute hepatic encephalopathy: Status: Acute Assessment and plan: admit to med/surg, supportive care. patient and son decline transfer. Seen by surgery and palliative care - patient would like to go home on hospice - surgery ok'd her to eat avoid hepatotoxic drugs (2) Hernia of small intestine: Status: Acute Assessment and plan: IV hydration, antiemetics, pain management Hypoglycemic - IVF changed to D5LR 75 ml/h surgery will follow declines higher level of care (3) Pleural effusion on right: Status: Acute Assessment and plan: surgery following, possible thoracentesis planned by surgery. Will make NPO after MN Per Dr Pelletier's note dated today @ 1800h (4) Thrombosis of mesenteric vein: Status: Acute Assessment and plan: discussed with surgery, no anticoagulation recommended. (5) Seizure disorder: Status: Chronic Assessment and plan: continue IV keppra seizure precautions (6) Portal hypertension with esophageal varices: Status: Chronic Assessment and plan: anticoagulation contraindicated. discussed with Dr Apple Subjective Subjective Patient reports: no new complaints and tolerating liquids well Interval history since last seen: Sleeping Exam Const General: frail appearing and ill appearing chronically Nutritional Appearance: cachectic Orientation: alert, awake, oriented to person, oriented to place and confused (poor historian, son reports worsened confusion in evenings) HENMT Head: atraumatic Face and sinus: normal facial exam Mouth: oral mucosa abnormal (dry) Eyes Sclera: scleral abnormality bilaterally (icteric) other Neck Neck: full ROM Chest Chest: normal inspection of the chest Resp Effort & Inspection: normal respiratory effort Auscultation: diminished lung sounds (bases) Cardio Rate: regular rate Rhythm: regular rhythm GI Inspection: edema and distended Palpation: hernia Skin General skin exam: jaundice Neuro General: patient alert, patient awake, oriented Patient Orientation: Person and Place and moves all extremities Objective Last Vital Signs Temp 36.8 C 10/25/23 07:14 Pulse 93 H 10/25/23 07:14 Resp 19 10/25/23 07:14 BP 116/69 10/25/23 07:14 Pulse Ox 96 10/25/23 07:14 Laboratory Results - last 24 hr 10/25/23 10/25/23 06:05 06:50 WBC 12.01 H RBC 3.94 Hgb 12.5 Hct 38.6 MCV 98 H D MCH 31.7 MCHC 32.4 RDW 18.5 H Plt Count 140 MPV 12.0 H Immature Gran % 0.7 Neutrophils % 73.9 Lymphocytes % 11.6 Monocytes % 10.8 Eosinophils % 1.5 Basophils % 1.5 Nucleated RBC % 0.0 Absolute Neutrophils 8.88 H Absolute Lymphocytes 1.39 Absolute Monocytes 1.30 H Absolute Eosinophils 0.18 Absolute Basophils 0.18 PT 13.1 H INR 1.3 H Sodium 141 Potassium 4.0 Chloride 108 H Carbon Dioxide 25.1 Anion Gap 7.9 BUN 28 H Creatinine 0.9 Est GFR (CKD-EPI 2020) 62.26 Glucose 71 L Calcium 8.4 L Total Bilirubin 4.0 H AST 83 H ALT 78 H Alkaline Phosphatase 166 H Total Protein 5.5 L Albumin 1.9 L Time Spent with Patient Time Spent with Patient: 35-49 minutes Time was spent: preparing to see the patient(eg.review tests), ordering medications,tests, procedures, referring, communicating with other health spiritual care coordinator, indepentently interpreting results, counseling the patient and care coordination
--- NOTE | 2023-10-25 14:51 | W.PALLCONSUL ---
Date of service: 10/25/23 Time of Service: 14:51 History of Present Illness Narrative: Gurinder was seen in her hospital room. She was alone at the time of the visit. We attempted to call her son, Antonio during the visit so he could be present by phone, vm left. She denies pain. She feels SOB at times. She is weak and fatigued. Her biggest complaint is that she is thirsty. She does not want more enemas. QOL is important to her. She enjoys playing cards with her sisters, she has 7 sisters (one sister passed). She also has 2 brothers (one passed). Reviewed current state of health/illness. She is clear that she wants to go home. She thinks family will take care of her. She does not want to be transferred to tertiary care center. She has 2 kids, Chon Duarte, son and Yaneli Carmen, daughter. Antonio is most involved in her care. Spoke to Antonio Duarte over the phone. He has questions about paracentesis and thoracentesis, he thought the surgeon was planning to attempt the paracentesis again today. He and is under the impression that doing so could potentially allow the hernia to reduce. Antonio agrees to sign on as her caregiver for hospice if that is what she ends up doing. Her son reports that she appears to sundown in the evening hours at home. He does not appear to understand how sick his mother is. Reviewed the multiple issues that she has going on at this point. It would be helpful for him to hear from the Surgeon as well. Assessment and Plan Assessment and plan (1) Acute hepatic encephalopathy: Status: Acute Assessment and plan: Mentation improved. She is able to engage in conversation in a meaningful way. She answers questions and provides information. She does not appear to be confused at this time. Continue lactulose. (2) Hernia of small intestine: Status: Acute Assessment and plan: General surgeon unable to reduce. She declined consideration for transfer to tertiary care facility. She was able to take sips of water during the visit. (3) Pleural effusion on right: Status: Resolved Assessment and plan: She is SOB, Dr. Pelletier to assess her in the morning with possible thoracentesis. (4) Thrombosis of mesenteric vein: Status: Acute Assessment and plan: Anticoagulation is not recommended. (5) Seizure disorder: Status: Chronic Assessment and plan: Continue keppra seizure precautions (6) Portal hypertension with esophageal varices: Status: Chronic Assessment and plan: anticoagulation contraindicated. 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 She understands that she has several medical problems occurring at present. She wants to go home on hospice. She wants her care to be comfort focused. She thinks her family will take care of her at home. She has previously established that she is a DNR/DNI. Spoke to her son, Antonio, who is also her HCA. He does not agree with her going home at present. He is asking questions about repeating the paracentesis and reducing the hernia. He will be in tomorrow. He will benefit from discussion with Dr Pelletier as well. Palliative will continue to follow. Follow up tomorrow. 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 She has seen hematology and thought it was due to a mixed etiology Compression fracture of lumbar vertebra (Acute) Portal hypertension with esophageal varices (Chronic) Grade 1. 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 Pt unable to tolerate propranolol. Primary biliary cholangitis (Chronic) [place] [facility] [place] associated with chronically elevated transaminases Primary osteoarthritis of left knee (Acute) Injection: 03/23/23; 08/14/22; 05/15/2022; [place] [place] Medical History Partial small bowel obstruction Incarcerated incisional hernia Recurrent right pleural effusion (07/2023) Status post thoracentesis July 2023 Pulmonary edema (~06/25/23) Gram-positive cocci bacteremia (~01/2023) s/p 6 wks IV abx 2022 History of left breast cancer Invasive intraductal, on arimedex, followed by Oncology Squamous cell carcinoma of skin of left lower extremity 3.5cm LLE Cystocele and rectocele with incomplete uterovaginal prolapse Fitted with #3 Gelhorn pessary Sept 2021; [place] [facility] [place]. Currently using a continence dish with knob. Persistent cystocele is present. Consultation with [facility] has been undertaken and she has an in person visit with them at the end of June,. They recommended colpocleisis. 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 Kaden Escobedo 06-23-2013 Surgical History History of thoracentesis (~07/2023) History of colpocleisis LeFort colpocleisis posterior perineorrhaphy cystoscopy at [facility] 09/05/2022 Status post Mohs surgery for squamous cell carcinoma of skin H/O inguinal hernia repair ganglion, left ankle Rotator Cuff Repair (06/23/13) Right with distal clavical excision Oseotomy (10/06/98) TONNY BILATERAL FEET Nuclear senile cataract EGD - MAC (12/31/17) Colonoscopy - MAC (12/31/17) Colonoscopy - IV Sedation 10 + years ago- normal Biopsy of breast (04/18/17) benign breast tissue with cyst wall Family History Mother , 88 Diabetes Essential hypertension Heart disease Hyperlipidemia Father , 63 Neoplasm BLADDER Sister Hyperlipidemia Breast cancer Brother Diabetes Essential hypertension Hyperlipidemia Neoplasm PROSTATE Prostate cancer Maternal Grandfather No problems noted. Paternal Grandfather No problems noted. Maternal Grandmother Diabetes Paternal Grandmother No problems noted. 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 Pets and animals: Yes Pets and animals: dog(s) Sexually active: No Do you think of yourself as: straight/heterosexual Current gender identity: female What is your relationship status?: How often do you talk on the phone with friends or family?: three or more times per week How often do you get together with friends or relatives?: once per week How often do you attend methodist or orthodox services?: decline to answer Do you belong to any clubs or organized social groups?: no Panel score (0-1 are the most socially isolated patients): 1 What type of physical activity do you participate in: none Frequency: does not exercise Nhung/Moravian: No preference Special nhung needs: No Seatbelt use: always Drive intox or ride w/intox test car driver: No Do you feel safe at home: Yes Do you feel safe in your relationship?: Yes Additional Social history: 07/31/23 has been in [facility] for past 3 weeks Female Reproductive History Menstrual Menopause type: natural History History 2 Para 2 Hx # Term Pregnancies Multiple births Hx # Pregnancies Ectopic pregnancies AB induced Hx Number of Living Children AB spontaneous Past Pregnancies Del. Date GA/Weeks # Preg Succ Route Wgt Sex Labor Lgth Anesthesia Location Prov Complic 12/13/1955 40 No Yes vaginal Female 10/12/1959 40 No Yes vaginal Male Exam Narrative Exam Narrative: General: very pleasant, elderly female, laying in bed with HOB elevated. Skin is jaundiced. She is awake, alert and able to participate in the meeting. She does not appear to be in any distress. HEENT: atraumatic, EOMI, sclera icteric, mmm Neck: supple Respiratory: she appears SOB with talking, wearing O2 via nc. GI: large abd hernia. Extremities: pitting edema to BLEs, moves all 4 extremities freely Results Last Vital Signs Temp 36.8 C 10/25/23 07:14 Pulse 93 H 10/25/23 07:14 Resp 19 10/25/23 07:14 BP 116/69 10/25/23 07:14 Pulse Ox 96 10/25/23 07:14 Labs 10/26/23 06:53 10/26/23 06:53 Labs: Laboratory Results - last 24 hr 10/25/23 10/25/23 06:05 06:50 WBC 12.01 H RBC 3.94 Hgb 12.5 Hct 38.6 MCV 98 H D MCH 31.7 MCHC 32.4 RDW 18.5 H Plt Count 140 MPV 12.0 H Immature Gran % 0.7 Neutrophils % 73.9 Lymphocytes % 11.6 Monocytes % 10.8 Eosinophils % 1.5 Basophils % 1.5 Nucleated RBC % 0.0 Absolute Neutrophils 8.88 H Absolute Lymphocytes 1.39 Absolute Monocytes 1.30 H Absolute Eosinophils 0.18 Absolute Basophils 0.18 PT 13.1 H INR 1.3 H Sodium 141 Potassium 4.0 Chloride 108 H Carbon Dioxide 25.1 Anion Gap 7.9 BUN 28 H Creatinine 0.9 Est GFR (CKD-EPI 2020) 62.26 Glucose 71 L Calcium 8.4 L Total Bilirubin 4.0 H AST 83 H ALT 78 H Alkaline Phosphatase 166 H Total Protein 5.5 L Albumin 1.9 L
[2023-10-25 15:11] VITALS: BP 102/59; PULSE 83; RESP 18; TEMP 36.9; O2SAT 97
--- NOTE | 2023-10-25 15:15 | CHAPLAIN ---
I had a brief visit with Elina. She was in bed. A family member/friend was at the bedside. I explained my role and offered support. The family member or friend thanked me for visiting. I'll continue to check in. Elina was scheduled to have a Palliative Care visit today.
--- NOTE | 2023-10-25 18:04 | PGE_ITS ---
Date of Service Date of service: 10/25/23 Time of Service: 18:04 Assessment and Plan Assessment and plan (1) Osteoporosis: Status: Chronic (2) Protein-calorie malnutrition, moderate: Status: Acute (3) Portal hypertension with esophageal varices: Status: Chronic (4) Primary biliary cholangitis: Status: Chronic Assessment and plan: Elina's liver continues to fail. She is brought her PBC for quite some time and done remarkably well. She has ascites that is probably going to require regular taps at this point. This can be accommodated through hospice. For symptom relief. Encourage diet and water as tolerated. Encourage ambulation as jessica ated. Elina is a little more confused today than she was yesterday. But she is still clear in her wishes that she wants to go home and that she wants to go into hospice. Her son is having a hard time excepting her decision. But Elina is clear that this is what she wants she is very tired of fighting and she is down. We can certainly accommodate her wishes and keep her comfortable. We will plan on thoracentesis tomorrow for symptom control. We can do paracentesis and thoracentesis as needed. And being that she is tolerating food and water this evening I think I will make the transition easier for her son. I will talk with him more tomorrow. He is her power of tax associate attorney for medical decision making. But at this time very is clear in her wishes and that she wants to go home and go into hospice care. I think this is a very clifford decision for her. If she needed surgery she would not survive. But fortunately from a surgical standpoint it looks like her bowel obstruction is resolving I did review we review her care with Elizabeth Gunter from hospice. We will plan on doing thoracentesis sometime tomorrow morning and then sometime in the afternoon getting her home with hospice. I will talk with her son tomorrow.. Dealing with her diagnosis. But very is very clear in her thought process and decision making and does want to go home with hospice. 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 She has been tolerating water. She is hungry and would like to eat. Will let her eat tonight a little and see how she does. Patient would like to go home on hospice hopefully home on hospice tomorrow hopefully home on hospice tomorrow (9) Incarcerated incisional hernia: Status: Acute Assessment and plan: Improved (10) Fe deficiency anemia: Status: Acute (11) Seizure disorder: Status: Chronic (12) Emphysema lung: Status: Acute Qualifiers: Emphysema type: unspecified Qualified Code(s): J43.9 - Emphysema, unspecified (13) Pleural effusion on right: Status: Acute Assessment and plan: Will attempt thoracentesis and surgery tomorrow for symptom relief (14) Lymphedema: Status: Acute Subjective Subjective Interval history since last seen: Elina is actually feeling much better today. She notes that she is hungry and thirsty. While I was in the room she drank half a glass of water. When I saw her in the ER yesterday she was constantly vomiting up material. This does not seem to be the case to night. She is asking for food. As long as she tolerates this then I would allow her to eat. Her belly is much softer. The hernia does not completely reduce. But she does not seem to have nearly as much pain as she did yesterday and the bowel appears soft and not distended. This is probably some degree of chronic herniated bowel. As long as she is able to eat and take fluids and her pain is controlled I am not too concerned about this. We did attempt to perform paracentesis. I did review her CT yesterday which does show large pockets of ascites fluid. However none of these pockets are amendable to paracentesis. She is still requiring supplemental oxygen. We discussed doing a paracentesis tomorrow and patient would be in favor of this. I will check a chest x-ray in the a.m. We discussed her goals of care. Her biliary cirrhosis/cholangitis is continuing to progress. She has had problems with ascites and with elevated pneumonia. RightFax amine might be a good option for her. Exam Narrative Exam Narrative: She is still requiring supplemental oxygen. She does not have good breath soun ds on the right side. There is no wheeze on the left side Heart is regular rate and rhythm Abdomen is soft and nontender today. The bowel wall still not completely reduced into the abdomen. But I think the edema has gone down significantly and it exhibits good peristalsis No pain or swelling in her legs. Objective Last Vital Signs Temp 36.9 C 10/25/23 15:11 Pulse 83 10/25/23 15:11 Resp 18 10/25/23 15:11 BP 102/59 L 10/25/23 15:11 Pulse Ox 97 10/25/23 15:11 Laboratory Results - last 24 hr 10/25/23 10/25/23 06:05 06:50 WBC 12.01 H RBC 3.94 Hgb 12.5 Hct 38.6 MCV 98 H D MCH 31.7 MCHC 32.4 RDW 18.5 H Plt Count 140 MPV 12.0 H Immature Gran % 0.7 Neutrophils % 73.9 Lymphocytes % 11.6 Monocytes % 10.8 Eosinophils % 1.5 Basophils % 1.5 Nucleated RBC % 0.0 Absolute Neutrophils 8.88 H Absolute Lymphocytes 1.39 Absolute Monocytes 1.30 H Absolute Eosinophils 0.18 Absolute Basophils 0.18 PT 13.1 H INR 1.3 H Sodium 141 Potassium 4.0 Chloride 108 H Carbon Dioxide 25.1 Anion Gap 7.9 BUN 28 H Creatinine 0.9 Est GFR (CKD-EPI 2020) 62.26 Glucose 71 L Calcium 8.4 L Total Bilirubin 4.0 H AST 83 H ALT 78 H Alkaline Phosphatase 166 H Total Protein 5.5 L Albumin 1.9 L Time Spent with Patient Time Spent with Patient: >50 minutes Time was spent: preparing to see the patient(eg.review tests), obtaining and/or reviewing separately otained hiistory, ordering medications,tests, procedures, referring, communicating with other health career resource technician, indepentently interpreting results, counseling the patient and care coordination
[2023-10-25] MEDS: levETIRAcetam 250 MG TAB 750 MG PO (20:37)
[2023-10-25] MEDS: Lactulose 20 GM/30 ML CUP PO (20:37)
[2023-10-25 23:04] VITALS: BP 96/70; PULSE 76; RESP 18; TEMP 36.5; O2SAT 96
[2023-10-26] MEDS: oxyCODONE 5 MG TAB PO ×2 (01:27→20:55)
[2023-10-26] MEDS: Acetaminophen 500 MG TAB PO (01:28)
[2023-10-26 07:06] LABS: Abs Immature Grans 0.06 10^3/uL (0.0-0.06); Absolute Basophil Count 0.11 10^3/uL (0.0-0.2); Absolute Eosinophil Count 0.29 10^3/uL (0.0-0.7); Absolute Lymphocyte Count 1.17 10^3/uL (1.2-3.4); Absolute Monocyte Count 0.97 10^3/uL (0.1-0.8); Absolute Neutrophil Count 6.55 10^3/uL (1.2-6.7); Basophils % 1.2 %; Eosinophils % 3.2 %; HCT 37.1 % (36.0-46.0); Immature Grans % 0.7 %; Lymphocytes % 12.8 %; MCH 32.2 pg (27.0-33.0); MCHC 32.3 % (32.0-36.0); MCV 100 fL (80-95); MPV 11.2 fL (8.0-11.0); Monocytes % 10.6 %; Neutrophils % 71.5 %; Platelet Count 139 10^3/uL (130-400); RBC 3.73 10^6/uL (3.93-5.22); RDW 17.9 % (11.7-14.6); RDW-SD 65.7 fL; WBC 9.15 10^3/uL (4.4-10.8)
[2023-10-26 07:10] LABS: Ammonia 96 umol/L (11-32)
[2023-10-26 07:16] LABS: Anion Gap 4.8 mmol/L (3-11); BUN 22 mg/dL (7-18); CO2 29.2 mmol/L (21.0-32.0); CREATININE 0.8 mg/dL (0.55-1.02); Calcium 8.3 mg/dL (8.5-10.1); Chloride 107 mmol/L (98-107); Estimated GFR 71.71 (mL/min/1.73m2); Glucose 84 mg/dL (74-106); Magnesium 2.1 mg/dL (1.8-2.4); Potassium 4.1 mmol/L (3.5-5.1); Sodium 141 mmol/L (136-145)
[2023-10-26 07:41] VITALS: BP 102/56; PULSE 78; RESP 16; TEMP 36.5; O2SAT 96
--- NOTE | 2023-10-26 08:41 | DI.RAD_ITS ---
Exam(s) XR PORTABLE CHEST AP EXAM: XR PORTABLE CHEST AP CLINICAL HISTORY: Pleural effusion TECHNIQUE: 2D digital imaging was performed of the chest. One images were obtained. AP views were obtained. COMPARISON: CR XR PORTABLE CHEST AP from 07/31/2023 CR XR CHEST 1V IN DI DEPT from 10/24/2023 FINDINGS: MEDIASTINUM: Normal. HEART: Heart size remains stable. PULMONARY VASCULATURE: There is worsening of the pulmonary venous congestion. LUNGS: Clear. PLEURAL SPACE: There is a small right pleural effusion. No pneumothorax is identified. BONE:Within normal limits for the patient's age. OTHER FINDINGS:There are surgical clips seen in the region of the left axilla. IMPRESSION: Findings of pulmonary venous congestion and right pleural effusion. The findings have progressed sin ce the prior examination. DATA REPOSITORY: RADIATION DOSE DELIVERED:
--- NOTE | 2023-10-26 09:09 | W.PM.OP ---
Date of service: 10/26/23 Time of Service: 09:09 Operative Note Operative Note DATE OF PROCEDURE: 10/26/23 PRE-OP DIAGNOSIS: right pleural effusion/cirrosisi w/ ascites POST-OP DIAGNOSIS: same PROCEDURE: thorocentisis SURGEON: Fina Pelletier ANESTHESIA TYPE: Local By Surgeon Refer to Anesthesia Record ESTIMATED BLOOD LOSS: 1 PATHOLOGY: none sent COMPLICATIONS: None Patient was transported to: PACU Patient's condition: stable Findings: 900cc stra colored fluid Procedure Description: Informed consent is obtained, explaining benefits and risks of the procedure including but not limited to: bleeding/infections/damage to bowels or blood vessels/chronic drainage or leakage/need for repeat procedure/reactions to anesthetics.?? The patient is brought to the procedure room and placed in the supine position.?? A time-out is done.? Ultrasound is used to localize the pocket of fluid.? The area is prepped and draped in the usual sterile fashion using a ChloraPrep scrub solution.? 10 cc's of 1% Lidocaine with epinephrine is used for local anesthetization.? The abdomen is punctured and the catheter is inserted.?900 liters of light yellow fluid is evacuated today.? The catheter is removed.? Pressure dressing is applied.? The patient tolerated the procedure well without complication and transferred to recovery in stable condition.?
[2023-10-26] MEDS: Lidocaine 1% Pres-Free W/EPI 1/200,000 10 ML VIAL (09:15)
[2023-10-26] MEDS: Sodium Bicarbonate 50 MEQ/50 ML VIAL (09:15)
--- NOTE | 2023-10-26 09:50 | DI.RAD_ITS ---
Exam(s) XR PORTABLE CHEST AP EXAM: XR PORTABLE CHEST AP CLINICAL HISTORY: s/p thoro TECHNIQUE: 2D digital imaging was performed of the chest. One image was obtained. An AP view was ob tained. COMPARISON: CR XR PORTABLE CHEST AP from 10/26/2023 FINDINGS: There is poor inspiration. MEDIASTINUM: Normal. HEART: Normal. PULMONARY VASCULATURE: Normal. LUNGS: No focal consolidating infiltrates are seen. PLEURAL SPACE: No pleural effusion or pneumothorax. BONE:Within normal limits for the patient's age. OTHER FINDINGS:Normal. IMPRESSION: No evidence of a pneumothorax. DATA REPOSITORY: RADIATION DOSE DELIVERED:
[2023-10-26] MEDS: Rifaximin 550 MG TAB PO ×2 (10:05→20:55)
[2023-10-26] MEDS: Lactulose 20 GM/30 ML CUP PO ×2 (10:06→20:56)
[2023-10-26] MEDS: levETIRAcetam 250 MG TAB 750 MG PO ×2 (10:06→20:55)
--- NOTE | 2023-10-26 10:41 | PGE_ITS ---
Date of Service Date of service: 10/26/23 Time of Service: 09:00 Assessment and Plan Assessment and plan (1) Elevated INR: Status: Acute (2) Osteoporosis: Status: Chronic (3) Protein-calorie malnutrition, moderate: Status: Acute (4) Portal hypertension with esophageal varices: Status: Chronic (5) Primary biliary cholangitis: Status: Chronic Assessment and plan: - The patient is quite weak and frail at this time. She is able to tolerate p.o.'s. She is slowly succumbing to her PBC mentation waxes and wanes. This morning she appears very sharp. Patient's desires to go home and go into hospice/comfort measures only. There are some family dynamics from her son-he has hard time accepting her diagnosis These are the patient's wishes at this time. This document was created with voice activated software and may contain errors. 20 mins spent in direct pt care and 20 in non face to face time Did communicate with Elizabeth from hospice today. 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 900 cc of fluid is removed. Subjective Subjective Interval history since last seen: Pt is doing ok. no headaches. No CP or SOB. Chronic cough. No dysuria. no leg pain or swelling. She has been able to tolerate orals. She took her meds. She has not moved her bowels. She does have a Molina catheter still in place. Her mentation appears improved from yesterday. She appears very tired/weak/frail Exam Narrative Exam Narrative: PHYSICAL EXAM GENERAL APPEARANCE: Alert, healthy appearance, oriented, x 3,? in no acute distress HYDRATION: Well hydrated HEAD, EYES, EARS, NECK, THROAT: Head is normocephalic, pupils equal, round, reactive to light and accommodation, ocular movement intact, sclera clear and no jaundice. ?Dentition intact. LUNGS: normal respiration/normal chest excursion. ?Decreased breath sounds on the right ?HEART: Regular rate and rhythm. no murmurs ABDOMEN: soft and non-tender to palpation.? Normal bowel sounds.? Large hernia- the bowel is soft and nontender. I still cannot completely reduce it into the abdomen. Objective Last Vital Signs Temp 36.5 C 10/26/23 07:41 Pulse 78 10/26/23 07:41 Resp 16 10/26/23 07:41 BP 102/56 L 10/26/23 07:41 Pulse Ox 96 10/26/23 07:41 Laboratory Results - last 24 hr 10/26/23 06:53 WBC 9.15 RBC 3.73 L Hgb 12.0 Hct 37.1 MCV 100 H MCH 32.2 MCHC 32.3 RDW 17.9 H Plt Count 139 MPV 11.2 H Immature Gran % 0.7 Neutrophils % 71.5 Lymphocytes % 12.8 Monocytes % 10.6 Eosinophils % 3.2 Basophils % 1.2 Nucleated RBC % 0.0 Absolute Neutrophils 6.55 Absolute Lymphocytes 1.17 L Absolute Monocytes 0.97 H Absolute Eosinophils 0.29 Absolute Basophils 0.11 Sodium 141 Potassium 4.1 Chloride 107 Carbon Dioxide 29.2 Anion Gap 4.8 BUN 22 H Creatinine 0.8 Est GFR (CKD-EPI 2020) 71.71 Glucose 84 Calcium 8.3 L Magnesium 2.1 Ammonia 96 H Time Spent with Patient Time Spent with Patient: 25-34 minutes Time was spent: preparing to see the patient(eg.review tests), obtaining and/or reviewing separately otained hiistory, ordering medications,tests, procedures, referring, communicating with other health intensive care ambulance paramedic, indepentently interpreting results, counseling the patient and care coordination
--- NOTE | 2023-10-26 15:02 | W.PALPGNOTE ---
Date of service: 10/26/23 Time of Service: 15:03 Assessment and Plan Assessment and plan (1) Acute hepatic encephalopathy: Status: Acute Assessment and plan: Mentation improved. Continue lactulose at time of discharge. (2) Hernia of small intestine: Status: Acute Assessment and plan: General surgeon unable to reduce. She declined consideration for transfer to tertiary care facility. She is eating and drinking and tolerating a diet. (3) Pleural effusion on right: Status: Resolved Assessment and plan: Thoracentesis by Dr. Pelletier with 900 cc drained. She breathing better. O2 for comfort. (4) Thrombosis of mesenteric vein: Status: Acute Assessment and plan: Anticoagulation is not recommended. (5) Seizure disorder: Status: Chronic Assessment and plan: Continue keppra seizure precautions (6) Portal hypertension with esophageal varices: Status: Chronic Assessment and plan: anticoagulation contraindicated. 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 She is expressing the same wishes today. Her son, Antonio and his sig other were present for the visit today. Antonio agrees, somewhat reluctantly, to be her caregiver at home. He is having difficulty accepting that his mother is nearing the end of her life. He wants her to stay in the hospital despite the repeated discussions that there is nothing that the hospital can offer to treat her. She is able to tolerate PO intake today with no N/V. Discussed that if she is able to continue to take PO, her life expectancy could be extended beyond a couple of weeks. She has not had a BM yet since she has been here. She has not been out of bed. Discussed equipment needs for home- hospice notified. She will discharge home tomorrow. Referral to hospice placed. She will be admitted to hospice for liver disease. Subjective Subjective Interval history since last seen: I met with Gurinder, her son, Antonio and his significant other. Gurinder has been very clear that she wants to go home on hospice. She has told several staff members that she understands that her time is limited and she wants to spend the time she has left at home. She previously declined consideration for transfer to a tertiary care hospital and she repeats this again today. Her breathing is better since Dr. Pelletier took nearly a liter off fluid off her lung. Her son had several questions. He appears to be having a hard time accepting his mother's decision. We reviewed hospice and what they can offer for support at home. Dr. Pelletier joined the visit and discussed the thoracentesis that she preformed this morning as well as the reasons why another attempt at paracentesis are not indicated, including risk for infection, risk for bleeding and risk of puncturing another organ. Gurinder is tolerating PO intake without N/V. She has not had a BM since she was admitted. Discussed adding miralax. She has not been out of bed yet. She will keep the orr in place when she goes home. Reviewed equipment needs for home. She will need: O2, hospital bed, BSC and bedside table. Her son agrees to be her primary caregiver. Other family members say they will help out as well. He questions this. Antonio will transport her home. Antonio's number is [phone] Exam Narrative Exam Narrative: General: very pleasant, elderly female, laying in bed with HOB elevated. Skin is jaundiced. She is awake, alert and able to participate in the meeting. She does not appear to be in any distress. HEENT: atraumatic, EOMI, sclera icteric, mmm Neck: supple Respiratory: respirations appear even and unlabored at rest. GI: large abd hernia, soft. Extremities: pitting edema to BLEs, moves all 4 extremities freely Objective Last Vital Signs Temp 36.5 C 10/26/23 07:41 Pulse 78 10/26/23 07:41 Resp 16 10/26/23 07:41 BP 102/56 L 10/26/23 07:41 Pulse Ox 96 10/26/23 07:41 Laboratory Results - last 24 hr 10/26/23 06:53 WBC 9.15 RBC 3.73 L Hgb 12.0 Hct 37.1 MCV 100 H MCH 32.2 MCHC 32.3 RDW 17.9 H Plt Count 139 MPV 11.2 H Immature Gran % 0.7 Neutrophils % 71.5 Lymphocytes % 12.8 Monocytes % 10.6 Eosinophils % 3.2 Basophils % 1.2 Nucleated RBC % 0.0 Absolute Neutrophils 6.55 Absolute Lymphocytes 1.17 L Absolute Monocytes 0.97 H Absolute Eosinophils 0.29 Absolute Basophils 0.11 Sodium 141 Potassium 4.1 Chloride 107 Carbon Dioxide 29.2 Anion Gap 4.8 BUN 22 H Creatinine 0.8 Est GFR (CKD-EPI 2020) 71.71 Glucose 84 Calcium 8.3 L Magnesium 2.1 Ammonia 96 H
[2023-10-26 15:04] VITALS: BP 100/58; PULSE 90; RESP 18; TEMP 36.4; O2SAT 97
--- NOTE | 2023-10-26 15:26 | W.PM.PROGNOT ---
Date of Service Date of service: 10/26/23 Time of Service: 15:27 Assessment and Plan Assessment and plan (1) Acute hepatic encephalopathy: Status: Acute Assessment and plan: continue comfort/supportive care. patient and son decline transfer. Seen by surgery and palliative care - patient would like to go home on hospice - plan is for tomorrow surgery ok'd her to eat avoid hepatotoxic drugs (2) Hernia of small intestine: Status: Acute Assessment and plan: IV hydration, antiemetics, pain management unable to reduce declines higher level of care (3) Pleural effusion on right: Status: Resolved Assessment and plan: 900 cc drained. (4) Thrombosis of mesenteric vein: Status: Acute Assessment and plan: discussed with surgery, no anticoagulation recommended. (5) Seizure disorder: Status: Chronic Assessment and plan: continue IV keppra seizure precautions (6) Portal hypertension with esophageal varices: Status: Chronic Assessment and plan: anticoagulation contraindicated. discussed with Dr Sanchez Subjective Subjective Patient reports: no new complaints, tolerating liquids well and afebrile; denies nausea or shortness of breath Objective Last Vital Signs Temp 36.4 C L 10/26/23 15:04 Pulse 90 10/26/23 15:04 Resp 18 10/26/23 15:04 BP 100/58 L 10/26/23 15:04 Pulse Ox 97 10/26/23 15:04 Laboratory Results - last 24 hr 10/26/23 06:53 WBC 9.15 RBC 3.73 L Hgb 12.0 Hct 37.1 MCV 100 H MCH 32.2 MCHC 32.3 RDW 17.9 H Plt Count 139 MPV 11.2 H Immature Gran % 0.7 Neutrophils % 71.5 Lymphocytes % 12.8 Monocytes % 10.6 Eosinophils % 3.2 Basophils % 1.2 Nucleated RBC % 0.0 Absolute Neutrophils 6.55 Absolute Lymphocytes 1.17 L Absolute Monocytes 0.97 H Absolute Eosinophils 0.29 Absolute Basophils 0.11 Sodium 141 Potassium 4.1 Chloride 107 Carbon Dioxide 29.2 Anion Gap 4.8 BUN 22 H Creatinine 0.8 Est GFR (CKD-EPI 2020) 71.71 Glucose 84 Calcium 8.3 L Magnesium 2.1 Ammonia 96 H Time Spent with Patient Time Spent with Patient: 35-49 minutes Time was spent: preparing to see the patient(eg.review tests), obtaining and/or reviewing separately otained hussein, ordering medications,tests, procedures, referring, communicating with other health care management coordinator, indepentently interpreting results and care coordination
--- NOTE | 2023-10-26 15:46 | W.PM.PROGNOT ---
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 Qualified Code(s): K74.3 - Primary biliary cirrhosis (9) Elevated LFTs: Status: Acute (10) Thrombosis of mesenteric vein: Status: Acute (11) Gallstones: Status: Acute (12) Fe deficiency anemia: Status: Acute (13) Hernia of small intestine: Status: Acute (14) Seizure disorder: Status: Chronic (15) Compression fracture of lumbar vertebra: Status: Acute (16) Essential tremor: Status: Acute (17) Emphysema lung: Status: Acute Qualifiers: Emphysema type: unspecified Qualified Code(s): J43.9 - Emphysema, unspecified (18) Lymphedema: Status: Acute Subjective Subjective Interval history since last seen: I was able to attend the family meeting with Gurinder, her son Elizabeth Lay & myself. Elina says she feels like she can breathe better since the thoracentesis. She still has her oxygen on. We did take this off. She is at 90% when she is completely still. If she talks she desaturates down to 89%. I suspect that more if she tries to get up and walk. She has never used oxygen. She does have severe COPD. She has been eating well she has been tolerating clear liquids and a soft diet. She still has her Molina in place and she has not gotten out of bed since she has been in the hospital. Nursing was able to get her up and transfer to chair. Not aware of how many it took in order for this to happen. Elina says she feels weak and very very tired. Elizabeth reviewed with Gurinder and her son logistics of getting Gurinder home. We will recommend that she get a hospital bed and bedside commode. She can have oxygen at home as needed. Surgery will come and do home tabs as needed for relief of the fluid on her abdomen or in her lung. I did talk with her son how the bowel obstruction seems to have resolved for now. However she still has the underlying primary biliary cholangitis. Her mentation waxes. Also depends on how tired she is. She is much clearer today than she was yesterday. We also discussed that going on home on hospice does not mean we will not care for her. We will certainly not do any aerobic measures and we will help her to keep her out of the hospital. Patient is already a DNR/DNI. Elina's wishes are to definitely not be in the hospital anymore and to be in her own home. Her son is having a difficult time excepting this. But unfortunately her liver disease is progressing. In some days she is not aware of where she is at. This afternoon she is making her wishes well-known. She is clear and concise. Her chest x-ray was clear after the procedure. Her abdomen is soft and nontender and she is tolerating oral diet. Hospice will work on getting her home and discharged on Sunday. This document was created with voice activated software and may contain errors. 30 mins spent in direct pt care and 15 in non face to face time Objective Last Vital Signs Temp 36.4 C L 10/26/23 15:04 Pulse 90 10/26/23 15:04 Resp 18 10/26/23 15:04 BP 100/58 L 10/26/23 15:04 Pulse Ox 97 10/26/23 15:04 Laboratory Results - last 24 hr 10/26/23 06:53 WBC 9.15 RBC 3.73 L Hgb 12.0 Hct 37.1 MCV 100 H MCH 32.2 MCHC 32.3 RDW 17.9 H Plt Count 139 MPV 11.2 H Immature Gran % 0.7 Neutrophils % 71.5 Lymphocytes % 12.8 Monocytes % 10.6 Eosinophils % 3.2 Basophils % 1.2 Nucleated RBC % 0.0 Absolute Neutrophils 6.55 Absolute Lymphocytes 1.17 L Absolute Monocytes 0.97 H Absolute Eosinophils 0.29 Absolute Basophils 0.11 Sodium 141 Potassium 4.1 Chloride 107 Carbon Dioxide 29.2 Anion Gap 4.8 BUN 22 H Creatinine 0.8 Est GFR (CKD-EPI 2020) 71.71 Glucose 84 Calcium 8.3 L Magnesium 2.1 Ammonia 96 H Time Spent with Patient Time Spent with Patient: >50 minutes Time was spent: preparing to see the patient(eg.review tests), obtaining and/or reviewing separately otained hiistory, ordering medications,tests, procedures, referring, communicating with other health client care specialist, indepentently interpreting results, counseling the patient and care coordination
[2023-10-26] MEDS: Milk of Magnesia 30 ML CUP PO (16:11)
--- NOTE | 2023-10-26 17:18 | CMPROGNOTE_ITS ---
Date of service: 10/26/23 Time of Service: 17:18 Care Management Progress Note Progress Note Text Progress Note Text: S/O: Gurinder was lying in bed when CM met with her. She expressed very clearly that she would like to return home. CM discussed the benefits of hospice with Gurinder, and answered questions regarding the services offered. She stated that she just needs to get her son, Chon on the same page. She stated that Chon isn't ready, but that he is willing to support his mother through the end of her life. Later, Gurinder met with palliative care, who spoke with Chon, and together they made a plan for Gurinder to return home tomorrow with a scheduled admission to hospice. CM informed [facility], asking for an admission to hospice tomorrow, and a delivery of DME which includes a hospital bed, commode, side table, and supplemental O2. Per [facility], Nael, rn mds coordinator, will be working tomorrow; CM to contact Nael to determine if DME has been delivered, as well as time of admission. CM will continue to follow. A: Elina Guzman) is an 88 year old female admitted to [facility] on 10/24/23 with hepatic encepholapthy, incarcerated tumor. P: Anticipate Gurinder will return home with a scheduled admission to hospice at home. She will benefit from DME, including a hospital bed, commode, side table and supplemental O2. Her son will transport her via private vehicle. She will follow up with palliative/hospice providers and her discharge plan of care. CM will continue to follow. SDOH(Care Management) Screening Will the Patient Participate in the Screening?: Yes Do you worry about having a steady place to live?: no In the past 12 months, have you had to go without electric, gas, oil or water in your home?: no Have you or anyone in your house had to go without enough food to eat?: no Has lack of transportation kept you from medical appointments or from doing things needed for daily living?: no Has anyone in your support network made you feel unsafe for any reason?: no
[2023-10-26] MEDS: Docusate Sodium 100 MG CAP PO (20:55)
[2023-10-26 22:52] VITALS: BP 110/67; PULSE 90; RESP 17; TEMP 37.1; O2SAT 92
[2023-10-27 07:38] VITALS: BP 109/62; PULSE 95; RESP 16; TEMP 36.1; O2SAT 92
[2023-10-27] MEDS: Spironolactone 25 MG TAB PO (07:48)
[2023-10-27] MEDS: Lactulose 20 GM/30 ML CUP PO (07:48)
[2023-10-27] MEDS: Docusate Sodium 100 MG CAP PO (07:48)
[2023-10-27] MEDS: levETIRAcetam 250 MG TAB 750 MG PO (07:48)
[2023-10-27] MEDS: Rifaximin 550 MG TAB PO (07:48)
--- NOTE | 2023-10-27 12:45 | W.PM.DS.N ---
Date of service: 10/27/23 Time of Service: 12:45 DS: Diagnosis Discharge Diagnosis (1) Acute hepatic encephalopathy: Status: Acute (2) Hernia of small intestine: Status: Acute (3) Pleural effusion on right: Status: Resolved (4) Thrombosis of mesenteric vein: Status: Acute (5) Seizure disorder: Status: Chronic (6) Portal hypertension with esophageal varices: Status: Chronic Discharge Plan Disposition Patient Disposition: Home W/Hospice Services Condition: Serious Discharge Details Reason For Visit: Hepatic Encephalopathy, Incarcerated Hernia Admit Date/Time: 10/24/23 17:07 Admit Provider: Drew Apple Attending Provider: Drew Apple Primary Care Provider: Macarena Blankenship Hospital Course Hospital Course: This is an 88-year-old female patient with complex past medical history including seizure disorder, nonalcoholic cirrhosis, portal hypertension with esophageal varices, emphysema, osteoarthritis who presented to the emergency department for evaluation of altered mental status. Her workup in the emergency department did show acute hepatic encephalopathy with a ammonia level greater than 100. She was also noted to have an incarcerated hernia. ED was unable to secure an NG tube. General surgery was contacted for consultation. After much discussion with patient and son they opted for admission for comfort care. also in her workup a mesenteric vein thrombosis was noted. She is not a candidate for anticoagulation. She was admitted to the medical surgical unit for symptom management placed on rectal lactulose. Hospice/palliative care was consulted and decision was made to go home on hospice services. She was tolerating minimal oral fluids and was cleared for fluids for comfort measures by surgery. discussed with Dr Sanchez [facility] and New Rx's Prescriptions: No Action milk thistle 150 mg capsule 150 mg PO DAILY Patient Comments: 01/05/22- pt unsure of dose Rx Instructions: give with meal/snack calcium carbonate [Calcium 600] 600 mg calcium (1,500 mg) tablet 600 mg PO DAILY PRN (Reason: Acid Reflux) Patient Comments: 01/05/22- pt unsure of dose ursodiol 300 mg capsule 300 mg PO TID Patient Comments: TAKE ONE CAPSULE BY MOUTH THREE TIMES A DAY albuterol sulfate [ProAir HFA] 90 mcg/actuation HFA aerosol inhaler 1 puff Inhalation Q6H PRN Qty: 8.5 4RF spironolactone 25 mg tablet 25 mg PO DAILY Qty: 90 3RF sulfamethoxazole-trimethoprim 800-160 mg tablet 1 tab PO DAILY Qty: 90 3RF torsemide 20 mg tablet 20 mg PO DAILY Qty: 90 3RF potassium chloride 10 mEq tablet extended release 10 meq PO TID Qty: 270 3RF levetiracetam 750 mg tablet 750 mg PO BID Qty: 180 3RF acetaminophen 650 mg suppository 650 mg KS Q6H PRN (Reason: fever, mild pain) Qty: 6 0RF Rx Instructions: Hospice Patient hyoscyamine sulfate 0.125 mg tablet,disintegrating 0.125 - 0.25 mg PO Q4H PRN (Reason: secretions) Qty: 24 0RF Rx Instructions: Hospice Patient lorazepam 1 mg tablet 1 mg PO Q4H PRN (Reason: anxiety, JEROME or nausea) Qty: 6 5RF Rx Instructions: Hospice Patient haloperidol lactate 2 mg/mL concentrate 1 mg PO Q6H PRN (Reason: agitation) Qty: 15 0RF Rx Instructions: Hospice Patient morphine concentrate 100 mg/5 mL (20 mg/mL) solution 5 - 20 mg PO Q1-4H MDD 5 mL PRN (Reason: moderate to severe pain or shortness of breath) Qty: 30 0RF Rx Instructions: Hospice Patient prochlorperazine maleate 10 mg tablet 10 mg PO Q6H PRN (Reason: nausea and vomiting) Qty: 6 0RF Rx Instructions: Hospice Patient bisacodyl [Dulcolax (bisacodyl)] 10 mg suppository 10 mg KS daily PRN (Reason: constipation) Qty: 2 0RF Rx Instructions: Hospice Patient Insert 1 supp KS Daily PRN constipation (no BM in 3 days) ondansetron 4 mg tablet,disintegrating 4 mg PO Q6H PRN (Reason: nausea and vomiting) Qty: 30 0RF Rx Instructions: Hospice- to be admitted over weekend cholecalciferol (vitamin D3) [Vitamin D3] 2,000 UNIT capsule 1,000 unit PO DAILY morphine concentrate 100 mg/5 mL (20 mg/mL) solution See Rx Instructions PO Q1H PRN MDD 120 mg Qty: 30 0RF Rx Instructions: 0.25-1.0 ml orally every 1 hour, as needed; HOSPICE lorazepam 0.5 mg tablet 0.5 mg PO Q4H PRN (Reason: anxiety) Qty: 10 5RF Rx Instructions: may increase to 2 tabs if needed HOSPICE Lactobacillus acidophilus 1 billion cell capsule 1,000 mmu cells PO DAILY Qty: 60 0RF magnesium gluconate 27 mg magnesium (500 mg) tablet 27 mg PO BID Qty: 180 3RF Discharge Instructions Instructions: Hospice Care (GEN) Additional Instructions: medication and oversight by hospice services Referrals: Elizabeth Gunter, CONFIGURATION SPECIALIST [NURSE PRACTITIONER] - Activity:: Activity as Tolerated Equipment/Supplies:: No Equipment Needed Diet:: As Tolerated Discharge Orders Discharge Orders: Discharge Order (Routine); Ordered 10/27/23 Ordered By: Nargis Sarmiento DS: Summary Time Spent with Patient providing and/or coordinating discharge services: Less than 30 minutes Status at Discharge Functional status at discharge: uses cane/walker Overall status at discharge: patient is not back to baseline Mental Status: other Speech and Movement: slowed movement Mood: other Affect: blunted Quality:SDOH Health Related Social Needs: No Data to Display Exam Const General: frail appearing and ill appearing chronically Nutritional Appearance: cachectic Orientation: awake, oriented to person and confused (poor historian, son reports worsened confusion in evenings) HENMT Head: atraumatic Ears: external ears normal General nose exam: external nose normal Face and sinus: normal facial exam Mouth: oral mucosa abnormal (dry) Eyes General: appearance normal, both eyes and all related structures Sclera: scleral abnormality bilaterally (icteric) other Neck Neck: full ROM Chest Chest: normal inspection of the chest Resp Effort & Inspection: normal respiratory effort Auscultation: diminished lung sounds (bases) Cardio Rate: regular rate GI Inspection: edema and distended Palpation: hernia (Unable to reduce) Skin General skin exam: jaundice Neuro General: patient awake and moves all extremities Extrem General: normal to inspection Psych Mental Status: other Speech and Movement: slowed movement Mood: other Affect: blunted DS: Data Vitals/I&O Vitals and I&O: Vital Signs Temperature 36.4 C L 10/26/23 15:04 Temperature Source Tympanic 10/26/23 15:04 Pulse 90 10/26/23 15:04 Pulse Rhythm Irregular 10/26/23 14:55 Respiratory Rate 18 10/26/23 15:04 Respiratory Effort Normal, Non-Labored 10/26/23 14:55 Respiratory Depth Normal 10/26/23 14:55 Respiratory Pattern Normal 10/26/23 14:55 Blood Pressure 100/58 L 10/26/23 15:04 Blood Pressure Position Supine 10/24/23 11:49 Pulse Oximetry 97 10/26/23 15:04 Oxygen Delivery Method Room Air 10/26/23 15:04 Oxygen Flow Rate 0 10/26/23 15:04 Pain Level 0 10/26/23 15:04 Comment pT requested BP on right arm 10/24/23 18:22 Intake & Output 10/25/23 10/26/23 10/26/23 23:59 11:59 23:59 Intake Total 1300.0 / 2545.0 240 / 1000 760 / 1000 Output Total 300 / 950 300 / 850 550 / 850 Balance 1000.0 / 1595.0 -60 / 150 210 / 150 Intake: IV 460.0 / 1705.0 Oral 840 / 840 240 / 1000 760 / 1000 Output: Urine 300 / 950 300 / 850 550 / 850 Other: Urine Color [place] Straw Yellow Urine Appearance Clear Clear Clear Comment orange yellow color Stool Size Smear Moderate Stool Characteristics Soft Formed Brown Data Completed and Pending Labs on day of discharge: Labs from last 24 hours 10/26/23 06:53 WBC 9.15 RBC 3.73 L Hgb 12.0 Hct 37.1 MCV 100 H MCH 32.2 MCHC 32.3 RDW 17.9 H Plt Count 139 MPV 11.2 H Immature Gran % 0.7 Neutrophils % 71.5 Lymphocytes % 12.8 Monocytes % 10.6 Eosinophils % 3.2 Basophils % 1.2 Nucleated RBC % 0.0 Absolute Neutrophils 6.55 Absolute Lymphocytes 1.17 L Absolute Monocytes 0.97 H Absolute Eosinophils 0.29 Absolute Basophils 0.11 Sodium 141 Potassium 4.1 Chloride 107 Carbon Dioxide 29.2 Anion Gap 4.8 BUN 22 H Creatinine 0.8 Est GFR (CKD-EPI 2020) 71.71 Glucose 84 Calcium 8.3 L Magnesium 2.1 Ammonia 96 H Preliminary micro results at discharge 10/24/23 12:22 Blood Culture - Preliminary Blood NO GROWTH 48 HOURS 10/24/23 16:15 Body Fluid Culture - Preliminary Peritoneal 10/24/23 16:15 Anaerobic Culture - Preliminary Abdomen 10/24/23 12:43 Blood Culture - Preliminary Blood Gram Positive Cocci PFSH All Active Problems Palliative care encounter (Acute) Hospice care (Acute) Thrombosis of mesenteric vein (Acute) Hernia of small intestine (Acute) Acute hepatic encephalopathy (Acute) Primary osteoarthritis of right knee (Acute) Injection: 03/23/23; 11/20/2022; 08/14/22; 05/15/2022; [place] Essential tremor (Acute) Gallstones (Acute) RUQ pain & diarrhea Lymphedema (Acute) Elevated INR (Acute) 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 She has seen hematology and thought it was due to a mixed etiology Compression fracture of lumbar vertebra (Acute) Portal hypertension with esophageal varices (Chronic) Grade 1. 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 Pt unable to tolerate propranolol. Primary biliary cholangitis (Chronic) followed by [place] [facility] associated with chronically elevated transaminases Primary osteoarthritis of left knee (Acute) Injection: 03/23/23; 08/14/22; 05/15/2022; [place]19[place] [place] Medical History Partial small bowel obstruction Incarcerated incisional hernia Recurrent right pleural effusion (07/2023) Status post thoracentesis July 2023 Pulmonary edema (~06/25/23) Gram-positive cocci bacteremia (~01/2023) s/p 6 wks IV abx 2022 History of left breast cancer Invasive intraductal, on arimedex, followed by Oncology Squamous cell carcinoma of skin of left lower extremity 3.5cm LLE Cystocele and rectocele with incomplete uterovaginal prolapse Fitted with #3 Gelhorn pessary Sept 2021; pending [place] [facility]. Currently using a continence dish with knob. Persistent cystocele is present. Consultation with [facility] has been undertaken and she has an in person visit with them at the end of June,. They recommended colpocleisis. 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 Kaden Escobedo 06-23-2013 Surgical History History of thoracentesis (~07/2023) History of colpocleisis [place] colpocleisis posterior perineorrhaphy cystoscopy at [facility] 09/05/2022 Status post Mohs surgery for squamous cell carcinoma of skin H/O inguinal hernia repair ganglion, left ankle Rotator Cuff Repair (06/23/13) Right with distal clavical excision Oseotomy (10/06/98) TONNY BILATERAL FEET Nuclear senile cataract EGD - MAC (12/31/17) Colonoscopy - MAC (12/31/17) Colonoscopy - IV Sedation 10 + years ago- normal Biopsy of breast (04/18/17) benign breast tissue with cyst wall Family History Mother , 88 Diabetes Essential hypertension Heart disease Hyperlipidemia Father , 63 Neoplasm BLADDER Sister Hyperlipidemia Breast cancer Brother Diabetes Essential hypertension Hyperlipidemia Neoplasm PROSTATE Prostate cancer Maternal Grandfather No problems noted. Paternal Grandfather No problems noted. Maternal Grandmother Diabetes Paternal Grandmother No problems noted. 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 Pets and animals: Yes Pets and animals: dog(s) Sexually active: No Do you think of yourself as: straight/heterosexual Current gender identity: female What is your relationship status?: How often do you talk on the phone with friends or family?: three or more times per week How often do you get together with friends or relatives?: once per week How often do you attend zoroastrian or judaism services?: decline to answer Do you belong to any clubs or organized social groups?: no Panel score (0-1 are the most socially isolated patients): 1 What type of physical activity do you participate in: none Frequency: does not exercise Nhung/Pentecostal: No preference Special nhung needs: No Seatbelt use: always Drive intox or ride w/intox motorcycle delivery driver: No Do you feel safe at home: Yes Do you feel safe in your relationship?: Yes Additional Social history: 07/31/[address] [facility] for past 3 weeks Female Reproductive History Menstrual Menopause type: natural History History 2 Para 2 Hx # Term Pregnancies Multiple births Hx # Pregnancies Ectopic pregnancies AB induced Hx Number of Living Children AB spontaneous Past Pregnancies Del. Date GA/Weeks # Preg Succ Route Wgt Sex Labor Lgth Anesthesia Location Prov Complic 12/13/1955 40 No Yes vaginal Female 10/[birth year]/1959 40 No Yes vaginal Male Time Spent with Patient Time Spent with Patient: <45 minutes Time was spent: preparing to see the patient(eg.review tests) and care coordination
--- NOTE | 2023-10-27 15:06 | CMDISCH_ITS ---
Date of service: 10/27/23 Time of Service: 15:06 LACE Index Scoring Tool Questions: Length of Stay (in days): 3 Was the patient admitted via the E.D.?: Yes Comorbidities: Diabetes w/o Complication, Chronic Pulmonary Disease, Any Tumor and Liver or Renal Disease E.D. Visits: 2 Answers: Total Score: 13 Risk of Readmission: High Risk Care Management Discharge Plan Reason for Hospitalization: hepatic encephalopathy, incarcerated hernia Discharge Plan: Gurinder will return home with a scheduled admission to hospice at home. DME, including a hospital bed, commode, side table and supplemental O2 has been ordered by [facility] and was delivered this morning. Her son Chon will transport her via private vehicle. She will follow up with palliative/hospice providers and her discharge plan of care. Patient/Family Education Needs: Review discharge instructions and limitations, discussion of self care needs including ask me three. Services Needed at Discharge: DME Agency, Home Health Care Services and Oxygen Therapy SDOH Health Related Social Needs: No Data to Display
== END 2023-10-27 14:10 | disposition hospice, home (50) | DRG 441 ==
LOC: ER 16:35 → MS 18:08
PROVIDERS: Nurse Practitioner Acute Care; Nurse Practitioner Family; Physician Assistant; Surgery; Admitting Provider Internal Medicine; Emergency Provider Registered Nurse Emergency; PCP Family Medicine; Visit Provider Internal Medicine
PROC: 0W993ZZ Drainage of Right Pleural Cavity, Percutaneous Approach (ICD-10-PCS; CPT 32554; principal; 2023-10-26 08:30)
DX: K76.82 Hepatic encephalopathy (principal); K55.069 Acute infarction of intestine, part and extent unspecified; E44.0 Moderate protein-calorie malnutrition; J90 Pleural effusion, not elsewhere classified; K76.6 Portal hypertension; K43.0 Incisional hernia with obstruction, without gangrene; I85.10 Secondary esophageal varices without bleeding; R18.8 Other ascites; K56.690 Other partial intestinal obstruction; G40.909 Epilepsy, unspecified, not intractable, without status epilepticus; M81.0 Age-related osteoporosis without current pathological fracture; Z68.23 Body mass index [BMI] 23.0-23.9, adult; K74.3 Primary biliary cirrhosis; D50.9 Iron deficiency anemia, unspecified; J43.9 Emphysema, unspecified; R79.1 Abnormal coagulation profile; I89.0 Lymphedema, not elsewhere classified; K80.20 Calculus of gallbladder without cholecystitis without obstruction; G25.0 Essential tremor; E86.0 Dehydration; Z66 Do not resuscitate; I10 Essential (primary) hypertension; E78.00 Pure hypercholesterolemia, unspecified; Z51.5 Encounter for palliative care; M17.0 Bilateral primary osteoarthritis of knee; Z85.3 Personal history of malignant neoplasm of breast; E11.649 Type 2 diabetes mellitus with hypoglycemia without coma
CPT/HCPCS: 49082; 32555; 00123; 36415; 36416; 51702; 80048; 80053; 82962; 87040; 87077; 93005; 96361; 96374; 99223; 99233; 99285; 70450; 71045; 74177; 81003; 82140; 83605; 83735; 84443; 84484; 85025; 85610; 87070; 87075; 87186; 87205; 93010; 99222; 99232; 99238; J1953; J2004; J2270; J2405; J3490